=== PATIENT | male | born 1935 | race Caucasian/White ===

== ENCOUNTER 2019-12-08 11:59 | Outpatient (REF) | payer MEDICARE, SELFPAY ==
--- NOTE | 2019-12-08 12:17 | XR_ITS ---
EXAMINATION: CHEST X-RAY CLINICAL INFORMATION: Tobacco use COMPARISON: Previous chest x-rays most recent December [address] scans most recent February 2019 TECHNIQUE: Two-view chest FINDINGS: The cardiac silhouette does not appear enlarged. The thoracic aorta is calcified and tortuous. Hilar and mediastinal contours are otherwise unremarkable. The lungs are well inflated. There is biapical pleural and parenchymal scarring that is stable. The lungs are otherwise clear. There is no pleural effusion or pneumothorax. The bones appear osteopenic. There is a moderate to severe T5 vertebral body compression fracture that is increased from February 2019 exam. There is a mild T10 vertebral body compression fracture that does not appear appreciably changed. There are old right posterior fourth and fifth rib fractures. There are surgical clips in the region of the GE junction. IMPRESSION: No evidence for acute disease in the chest. T5 vertebral body compression fracture increased from previous exam. EXAMINATION: Right clavicle x-ray CLINICAL INFORMATION: Right clavicle fracture COMPARISON: Previous CT of the chest most recent February 2019 TECHNIQUE: 2 views of the right clavicle FINDINGS: The right medial clavicle fracture is difficult to visualize by x-ray. There are old right posterior third fourth and question fifth rib fractures. There is arthritis at the glenohumeral and acromioclavicular joints. There are degenerative changes of the greater tuberosity and adjacent soft tissue calcification suggestive of calcific tendinitis. IMPRESSION: Right medial clavicle fracture not well-visualized by x-ray. Old right posterior rib fractures. Degenerative changes of the right shoulder. EXAMINATION: Left shoulder x-ray CLINICAL INFORMATION: Pain COMPARISON: None. TECHNIQUE: 4 views of the left shoulder FINDINGS: Bone alignment is normal. No fracture or dislocation is seen. The glenohumeral joint is normal. There is mild arthritis at the acromioclavicular joint. There are degenerative changes of the greater tuberosity with increased sclerosis in contour irregularity. There is a soft tissue calcification adjacent to the greater tuberosity. There is left apical pleural and parenchymal scarring. There is a medial soft tissue calcification in the upper arm, question representing vascular calcification. IMPRESSION: Degenerative change at the acromioclavicular joint and greater tuberosity soft tissue calcification adjacent to the greater tuberosity
== END 2019-12-08 12:00 | disposition home or self-care (01) ==
LOC: HO.XRAY 11:59
PROVIDERS: PCP Internal Medicine; Visit Provider Internal Medicine
DX: S43.101A Unspecified dislocation of right acromioclavicular joint, initial encounter (principal); M25.512 Pain in left shoulder; F17.200 Nicotine dependence, unspecified, uncomplicated
CPT/HCPCS: 71046; 73000; 73030

== ENCOUNTER 2020-01-11 10:33 | Outpatient (REF) | payer MEDICARE, SELFPAY ==
[2020-01-11 11:58] LABS: Alanine Aminotransferase 12 U/L (0-40); Albumin Level 4.3 g/dL (3.5-5.0); Alkaline Phosphatase 80 U/L (39-117); Anion Gap 13 (12-20); Aspartate Amino Transferase 18 U/L (5-37); Bilirubin Total 0.6 mg/dL (0.0-1.0); Blood Urea Nitrogen 8 mg/dL (9-16); Carbon Dioxide 29 mmol/L (22-29); Chloride 95 mmol/L (96-108); Cholesterol 124 mg/dL; Estimated Glomerular Filt Rate > 60; Glucose Random 87 mg/dL (60-115); HDL Cholesterol 56 mg/dL; LDL Cholesterol Calculated 53 mg/dl; Sodium 132 mmol/L (135-145); Total Protein 7.2 g/dL (6.5-8.0); Triglycerides 78 mg/dL
== END 2020-01-11 10:34 | disposition home or self-care (01) ==
LOC: HO.LAB 10:33
PROVIDERS: PCP Internal Medicine; Visit Provider Internal Medicine
DX: E78.00 Pure hypercholesterolemia, unspecified (principal); E87.1 Hypo-osmolality and hyponatremia; I73.81 Erythromelalgia; M75.102 Unspecified rotator cuff tear or rupture of left shoulder, not specified as traumatic; S42.021B Displaced fracture of shaft of right clavicle, initial encounter for open fracture
CPT/HCPCS: 80053; 80061

== ENCOUNTER 2020-02-07 10:47 | Outpatient (REF) | payer MEDICARE, SELFPAY ==
[2020-02-07 12:27] LABS: Blood Urea Nitrogen 7 mg/dL (9-16); Estimated Glomerular Filt Rate > 60
== END 2020-02-07 10:48 | disposition home or self-care (01) ==
LOC: HO.LAB 10:47
PROVIDERS: PCP Internal Medicine; Visit Provider Psychiatry & Neurology Neurology
DX: G45.8 Other transient cerebral ischemic attacks and related syndromes (principal); I63.9 Cerebral infarction, unspecified
CPT/HCPCS: 82565; 84520

== ENCOUNTER → 2020-02-22 11:14 | Outpatient (BNVA) | payer MEDICARE, SELFPAY | PROVIDERS: PCP Internal Medicine; Referring Provider Internal Medicine; Visit Provider Surgery Vascular Surgery | DX: M79.602 Pain in left arm (principal); I65.23 Occlusion and stenosis of bilateral carotid arteries; F17.210 Nicotine dependence, cigarettes, uncomplicated | CPT/HCPCS: 99202 ==

== ENCOUNTER 2020-03-07 12:44 | Outpatient (REF) | payer MEDICARE, SELFPAY ==
--- NOTE | 2020-03-07 12:47 | US_ITS ---
EXAMINATION: US DUPLEX UPPER EXTREMITY ARTERY/GRAFT LIMITED, LEFT CLINICAL INFORMATION: Retrograde flow seen in the left vertebral artery on carotid ultrasound. COMPARISON: Carotid ultrasound 03/07/2020, CT chest 03/14/2019 TECHNIQUE: Real-time ultrasound and Doppler techniques (integrating B-mode 2-D vascular images, Doppler spectral analysis and color flow Doppler imaging) were utilized to interrogate the lower extremities. FINDINGS: Right lower extremity: Subclavian artery proximal: 25 cm/sec; monophasic waveform Subclavian artery mid portion: Not well seen. Subclavian artery distal: Not well seen. Axillary artery: 33 cm/sec; monophasic waveform Brachial artery proximal: 26 cm/sec; monophasic waveform Brachial artery mid: 28 cm/sec; monophasic waveform Brachial artery distal: 24 cm/sec; monophasic waveform Radial artery: 18 cm/sec; monophasic waveform Ulnar artery: 12 cm/sec; monophasic waveform ADDITIONAL FINDINGS: None. US/US arterial duplex UE LT IMPRESSION: Dampened waveforms and low velocity seen within the arteries of the left upper extremity. Evaluation of the subclavian artery origin is not possible with ultrasound. Chest CT from 03/14/2019 demonstrates extensive calcification at the origin of the left subclavian artery. The constellation of this evidence is strongly suggestive of left subclavian artery stenosis or occlusion at its origin from the aorta.
--- NOTE | 2020-03-07 12:47 | US_ITS ---
EXAMINATION: US EXTRACRANIAL CAROTID DUPLEX, BILATERAL CLINICAL INFORMATION: This is an 84-year-old male with carotid artery disease. Occlusion and stenosis of bilateral carotid arteries. COMPARISON: None TECHNIQUE: Real-time ultrasound and Doppler techniques (integrating B-mode 2-D vascular images, Doppler spectral analysis and color-flow Doppler imaging) were utilized to interrogate the extracranial carotid arteries, the vertebral arteries and proximal subclavian arteries bilaterally. The degree of stenosis is determined by criteria similar to NASCET. FINDINGS: Right Side: 1. There is minimal atherosclerotic plaque seen in the bifurcation/proximal ICA region. 2. The common carotid artery PSV proximally is 61 cm/s and distally 54 cm/s. 3. The proximal internal carotid artery velocities are 82 cm/s systolic and 26 cm/s diastolic. 4. The proximal external carotid artery PSV is 56 cm/s. 5. The vertebral artery shows antegrade flow. 6. The subclavian artery waveforms are normal. Left Side: 1. There is intimal atherosclerotic plaque seen in the bifurcation/proximal ICA region. 2. The common carotid artery PSV proximally is 76 cm/s and distally 63 cm/s. 3. The proximal internal carotid artery velocities are 73 cm/s systolic and 21 cm/s diastolic. 4. The proximal external carotid artery PSV is 58 cm/s. 5. The vertebral artery shows retrograde flow. 6. The subclavian artery waveforms are normal. US/US carotid duplex BI IMPRESSION: 1. RIGHT: Minimal, non-hemodynamically significant stenosis of the proximal right internal carotid artery corresponding to a 0-49% stenosis by velocity criteria. 2. LEFT: Minimal, non-hemodynamically significant stenosis of the proximal left internal carotid artery corresponding to a 0-49% stenosis by velocity criteria. 3. There is retrograde flow in the left vertebral artery. However, no definite stenosis is seen within the subclavian arteries.
== END 2020-03-07 12:45 | disposition home or self-care (01) ==
LOC: HO.US 12:44
PROVIDERS: Visit Provider Surgery Vascular Surgery
DX: I65.23 Occlusion and stenosis of bilateral carotid arteries (principal); M79.602 Pain in left arm; I73.81 Erythromelalgia
CPT/HCPCS: 93880; 93931

== ENCOUNTER → 2020-03-23 10:15 | Outpatient (BNVA) | payer MEDICARE, SELFPAY | PROVIDERS: PCP Internal Medicine; Visit Provider Surgery Vascular Surgery | DX: I77.1 Stricture of artery (principal) | CPT/HCPCS: 99212 ==

== ENCOUNTER 2020-03-29 06:35 | Day surgery (SDC) | payer MEDICARE, SELFPAY ==
[2020-03-29] VITALS (9 sets, daily range): BP systolic 90–132; BP diastolic 65–89; PULSE 89–99; RESP 16–20; TEMP 36.1; O2SAT 94–95; BMI 24.0
[2020-03-29 08:31] LABS: INTERNATIONAL NORM RATIO 1.1 (0.9-1.1); Prothrombin Time 13.4 SEC (10.8-13.0)
[2020-03-29 08:33] LABS: Hemoglobin 14.6 g/dl (14.0-18.0); MANUAL DIFF FLAG SCAN; Partial Thromboplastin Time 41.5 SEC (24.1-38.0); SCAN SMEAR FLAG 1
[2020-03-29 08:35] LABS: Basophils Absolute Auto 0.1 X10*3/uL (0.0-0.2); Basophils Percent Auto 0.8 % (0-2); Eosinophils Absolute Auto 2.5 X10*3/uL (0.0-0.4); Eosinophils Percent Auto 17.2 % (0-4); Hematocrit 46.5 % (42-52); Imm Gran Abs Auto 0.09 X10*3/uL (0.00-0.03); Imm Gran Pct Auto 0.6 % (0.0-0.4); Lymphocytes Absolute Auto 2.1 X10*3/uL (1.2-4.9); Lymphocytes Percent Auto 14.5 % (20-40); Mean Corpuscular HGB Conc 31.4 g/dl (31.0-36.0); Mean Corpuscular Hemoglobin 19.3 pg (27.0-33.0); Monocytes Absolute Auto 1.6 X10*3/uL (0.1-1.2); Monocytes Percent Auto 11.2 % (2-11); Neutrophils Absolute Auto 8.1 X10*3/uL (2.0-8.3); Neutrophils Percent Auto 55.7 % (45-73); Platelet Count 425 X10*3/uL (160-400); Red Blood Count 7.58 X10*6/uL (4.60-5.80); Red Cell Distribution Width 25.1 % (11.0-16.0); White Blood Count 14.4 X10*3/uL (4.8-10.8)
[2020-03-29 08:38] LABS: Mean Corpuscular Volume 61.3 fL (80-98)
[2020-03-29 08:39] LABS: PLT ABN DIST 1
[2020-03-29 08:56] LABS: Anion Gap 16 (12-20); Blood Urea Nitrogen 6 mg/dL (9-16); Calcium 8.8 mg/dL (8.4-10.2); Carbon Dioxide 26 mmol/L (22-29); Chloride 93 mmol/L (96-108); Creatinine Clr Calc Pharmacy 61.3; Estimated Glomerular Filt Rate > 60; Glucose Random 83 mg/dL (60-115); Potassium 4.5 mmol/L (3.3-5.1); Sodium 130 mmol/L (135-145)
[2020-03-29 09:20] LABS: SLIDE REVIEW VERIFIED
[2020-03-29] MEDS: Lidocaine HCl 1 % MPF 5 ML VIAL 10 ML SUBCUT (11:24)
[2020-03-29] MEDS: iohexoL 300 MG/ML 100 ML INFUS..BTL 200 ML IV (11:24)
--- NOTE | 2020-03-29 11:29 | P.OP_ITS ---
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 Ultrasound-guided right common femoral access 2. Aortogram of arch with selective left subclavian canulation Surgeon:Manav Torres M.D. Tiler'S Assistant:None Anesthesia: Local with moderate conscious sedation for a total of 85 minutes, performed by sc Specimens:none Drains:none Estimated blood loss:minimal Indications:Pt was noted to have significant subclavian steal and arm pain. CTA demonstrates left subclavian origin stenosis. Now for endovascular intervention Procedure in detail: Patient was brought to the angiography suite prior to which a time-out was called for patient identification and site verification. Bilateral groins were prepped and draped in the standard surgical fashion. Under ultrasound guidance common femoral was punctured with micro puncture needle and wire. Subsequently a precision 4 [place] sheath was then placed. [employer] wire was advanced to the level of the aorta. 5 [place] Flush catheter was brought up and parked at the level of the renal arteries. Aortogram was then undertaken. Catheter was brought down to the level of the iliac bifurcation. Iliacs were subsequently imaged. Catheter was then brought in up to the aortic arch. Power injection was performed. Multiple orthogonal views were undertaken. 3000 units of systemic heparin was administered. We then turned our attention to the arch. We brought up a 6 [place] sheath all the way up to the aortic arch. We exchanged for multiple catheters including an angle glide catheter and a KMP catheter. Multiple wires were used to try to attempt to cross the subclavian lesion including and 035 glidewire, 035 glidewire vantage, Amplatzer wire. We were able to engage the origin of the left subclavian but were unable to pass the occlusion. Multiple orthogonal views were once again undertaken. We then withdrew the 6 [place] sheath down to the iliac and placed a flush catheter at the level of the renals and aortogram was then undertaken. We brought the catheter down to the level of the iliacs and iliacs were subsequently imaged. Catheter wire sheath was then removed. 10 minutes of direct pressure was held. Patient tolerated the root procedure well. Interpretation of films: 1. Ultrasound demonstrates appropriate femoral puncture. Image of which was saved. 2. Aortogram demonstrates appropriate caliber aorta. Significant atherosclerotic disease with some evidence of thrombus. 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 Appropriate take-off of the renals. 3. Iliac images demonstrate significant tortuosity of the iliacs. There was high-grade stenosis on the right side common iliac in addition to right side total occlusion of the common femoral. Left side had mild to moderate disease throughout the entire iliac tree. 4. Aortic arch angiogram demonstrated a type 3 arch. Appropriate innominate with normal flow through the carotids. Normal left carotid. Left subclavian had a significant near occlusive lesion at the origin with immediate reconstitution. We were unable to visualize any smaller vessels beyond that point. Including vertebral and thoracic. Conclusion: 1. Successful diagnostic angiogram. We were unable to traverse the subclavian lesion. Patient has significant right-sided common femoral disease which was near occlusive. Minimal flow beyond that. Will need lower extremity workup. As far as the subclavian he may need a brachial approach and if stable may even require a carotid subclavian bypass. 2. Will follow up in my office in approximately 2 weeks time. This note is constructed using voice recognition software. While every effort has been made to ensure accuracy, children's minister errors may have been included. Thank you for allowing me to participate in the care of your patient. Yours sincerely, Manav Torres MD, FACS, R.P.V.I.
[2020-03-29] MEDS: oxyCODONE HCl Immed Release 5 MG TABLET PO (12:15)
[2020-03-29] MEDS: Acetaminophen 325 MG TABLET 650 MG PO (12:20)
== END 2020-03-29 16:20 | disposition home or self-care (01) ==
PROVIDERS: PCP Internal Medicine; Visit Provider Surgery Vascular Surgery
DX: I77.1 Stricture of artery (principal); I70.208 Unspecified atherosclerosis of native arteries of extremities, other extremity; G45.8 Other transient cerebral ischemic attacks and related syndromes; M79.622 Pain in left upper arm; R25.2 Cramp and spasm; I10 Essential (primary) hypertension; D75.1 Secondary polycythemia; E78.00 Pure hypercholesterolemia, unspecified; I25.2 Old myocardial infarction; F17.210 Nicotine dependence, cigarettes, uncomplicated
CPT/HCPCS: 36225; 36245; 36415; 75625; 75630; 75716; 75774; 76937; 76942; 80048; 85025; 85610; 85730; 99152; 99153; C1725; C1769; C1887; C1894; J2250; J3010; Q9967

== ENCOUNTER → 2020-04-13 09:39 | Outpatient (BNVA) | payer MEDICARE, SELFPAY | PROVIDERS: PCP Internal Medicine; Visit Provider Surgery Vascular Surgery | DX: I77.1 Stricture of artery (principal) | CPT/HCPCS: 99212 ==

== ENCOUNTER 2020-06-22 09:27 | Emergency (ER) | payer MEDICARE, SELFPAY ==
--- NOTE | ~2020-06-22 | US_ITS ---
EXAMINATION: RIGHT LOWER EXTREMITY ARTERIAL ULTRASOUND CLINICAL INFORMATION: History of recent vascular procedure. Evaluate for right groin AV fistula or pseudoaneurysm. COMPARISON: None TECHNIQUE: Doppler, color and grayscale evaluation of the arteries and veins in the right groin and right thigh including waveform spectral analysis FINDINGS: There is a large heterogeneous soft tissue mass adjacent to the right common femoral artery. This does not demonstrate vascularity/flow and probably represents a hematoma. The right common femoral artery is enlarged measuring 1.8 cm in diameter. The right common femoral artery is patent however demonstrates markedly abnormal low with a dampened monophasic high resistance waveform and decreased peak systolic velocity of 22 cm/s. The right common femoral vein is patent. Flow in the right common femoral vein is normal. There is hypoechoic soft tissue seen in between the right common femoral artery in the right common femoral vein, again questionable for hematoma. The right proximal superficial femoral artery is patent with normal triphasic waveform and peak systolic velocity of 62 cm/s. US/US arterial duplex LE RT IMPRESSION: No evidence of pseudoaneurysm or AV fistula. Large soft tissue mass adjacent to the right common femoral artery probably representing a hematoma. The right common femoral artery is dilated measuring 1.8 cm in diameter and has abnormal flow with a monophasic high resistance waveform and dampened peak systolic velocity. Further evaluation with CTA may be helpful.
--- NOTE | ~2020-06-22 | XR_ITS ---
EXAMINATION: XR CHEST CLINICAL INFORMATION: Shortness of breath COMPARISON: Previous chest x-ray most recent November [address] February 2019 TECHNIQUE: Frontal view of the chest was obtained. FINDINGS: The cardiac and mediastinal contours are stable. There is biapical pleural parenchymal scarring that is unchanged. There is a small 3 x 6 mm nodule that projects over the right upper lobe and anterior second rib. This is similar to previous chest x-ray May 2017. When compared with previous chest CT scan this likely corresponds to a pleural plaque. The lungs are otherwise clear. There is no pleural effusion or pneumothorax. There are surgical clips in the GE junction region. There are degenerative changes of the spine. XR/XR chest 1V IMPRESSION: No evidence for acute disease in the chest.
[2020-06-22 09:33] VITALS: BP 130/86; PULSE 70; PULSE 95; RESP 16; TEMP 36.7; O2SAT 100; O2SAT 98; BMI 22.6
--- NOTE | 2020-06-22 09:34 | ED.SOB ---
HPI - SOB/Dyspnea General Chief Complaint: Extremity Injury, Lower Stated Complaint: Bleeding/ Hypoxic Time Seen by Provider: 06/22/20 09:31 Source: patient Mode of arrival: EMS Limitations: no limitations History of Present Illness HPI Narrative: Patient with likely arteriovenous fistula from right groin. Family called for leg pain in addition patient has shortness of breath. Patient had surgery on Friday. Patient and family concerned about bleeding from groin. MD elicited complaint: shortness of breath Pertinent past history: congestive heart failure Onset (ago): day(s) Context: other (surgery at [facility] on Friday) Severity: mild Related Data Home Medications Medication Instructions Recorded Confirmed atorvastatin 20 mg tablet 20 mg PO DAILY 02/22/20 06/22/20 cilostazol 50 mg tablet 50 mg PO BID 02/22/20 06/22/20 clopidogrel 75 mg tablet 75 mg PO DAILY 02/22/20 06/22/20 Allergies Allergy/AdvReac Type Severity Reaction Status Date / Time No Known Allergies Allergy Verified 04/13/20 09:56 [No Known Allergies*] Review of Systems Constitutional: Constitutional: Reports no additional constitutional complaints Eyes: Eyes: Reports no additional eye complaints ENT: Denies dizziness Cardiovascular: Cardiovascular: Reports no additional cardiovascular complaints Respiratory: Respiratory: Reports as per HPI Gastrointestinal: Gastrointestinal: Reports no additional gastrointestinal complaints Musculoskeletal: Musculoskeletal: Reports no additional musculoskeletal complaints Integumentary/Breasts: Skin/Breast: Denies rash Neurologic: Reports system reviewed and no additional complaints, except as documented, Denies dizziness and Denies Sensory deficit (Neuro) Psychiatric: Psychiatric: Denies anxiety [facility] Past Medical History Medical History Fracture Heart attack High cholesterol HTN (hypertension) Polycythemia Surgical History H/O arthroscopy of shoulder Hx of rotator cuff surgery S/P angiogram of extremity Family History Family History Daughter Aortic aneurysm Social History Social History Smoking Status: Current every day smoker Tobacco Type: Cigarette Cigarettes Per Day: 10 Use of substances other than those prescribed or required for medical reasons: No Advance Directives: Yes Advance Directives Information Provided: No Advance Directives on File: No Physical Exam Vital Signs: Vital Signs: Last Vital Signs Temp 98.0 F 06/22/20 09:33 Pulse 78 06/22/20 12:52 Resp 18 06/22/20 12:52 BP 122/77 06/22/20 12:52 Pulse Ox 100 06/22/20 12:52 Oxygen Flow Rate 4 06/22/20 09:33 Body Mass Index 22.6 Const: Other: Thin frail chronically ill male Orientation/consciousness: oriented to person and patient oriented x3 Limitations: no limitations HENMT: Head: Yes normal to inspection Ears: external ears normal General nose exam: Normal external nose present Mouth: Normal oral and palatal mucosa present and oropharynx normal Throat: Yes posterior oropharynx normal Eyes: General: appearance normal, both eyes and all related structures Neck: Other: supple Neck: Yes normal visual inspection Chest: Chest palpation & inspection: normal inspection of the chest Resp: Auscultation: clear to auscultation bilaterally Cardio: Jugular venous distension: no JVD Rate: regular rate Rhythm: regular rhythm Heart sounds: S1 normal heart sound present and S2 normal heart sound present GI: Inspection: Yes normal to inspection Palpation (GI): Soft to palpation, nontender and No hepatosplenomegaly present Auscultation: normal bowel sounds : General: Yes no CVA tenderness Back/Spine/Pelvis: Back: no CVA tenderness Skin: Other: right groin hematoma into penis and scrotum. Right groin with large suture. Neuro: General: oriented to person and patient oriented x3 Cranial nerves: Yes CN's II-XII intact bilaterally Motor exam (neuro): 5/5 motor strength present throughout Sensory Exam: No Sensory deficit (Neuro) Extrem: General: Yes normal to inspection Psych: Appearance: grossly normal MDM - SOB/Dyspnea MDM Narrative Medical decision making narrative: Patient with right groin large hematoma that extends into his groin. His leg is warm with good DP pulses. Despite his hematoma on ultrasound and some decrease flow in the femoral artery patient has warm leg with good pulses. Will dc home. Lab Data Result diagrams: 06/22/20 09:43 06/22/20 09:43 Labs: Lab Results 06/22/20 06/22/20 06/22/20 Range/Units 09:43 09:43 09:43 WBC 17.0 H (4.8-10.8) X10*3/uL RBC 6.71 H (4.60-5.80) X10*6/uL Hgb 13.1 L (14.0-18.0) g/dl Hct 42.5 (42-52) % MCV 63.3 L (80-98) fL MCH 19.5 L (27.0-33.0) pg MCHC 30.8 L (31.0-36.0) g/dl RDW 24.0 H (11.0-16.0) % Plt Count 374 (160-400) X10*3/uL MPV Not Reportable Immature Gran % (Auto) 0.8 H (0.0-0.4) % Neut % (Auto) 71.0 (45-73) % Lymph % (Auto) 9.1 L (20-40) % [place] % (Auto) 10.7 (2-11) % Eos % (Auto) 8.0 H (0-4) % Baso % (Auto) 0.4 (0-2) % Lymph # (Auto) 1.5 (1.2-4.9) X10*3/uL [place] # (Auto) 1.8 H (0.1-1.2) X10*3/uL Eos # (Auto) 1.4 H (0.0-0.4) X10*3/uL Baso # (Auto) 0.1 (0.0-0.2) X10*3/uL Abs Immat Gran (auto) 0.14 H (0.00-0.03) X10*3/uL Absolute Neuts (auto) 12.0 H (2.0-8.3) X10*3/uL Absolute Nucleated RBC 0.000 (0.0-0.012) X10*3/uL Nucleated RBC % (auto) 0.0 (0.0-0.2) /100WBC Smear Tech's Comments VERIFIED Sodium 132 L (135-145) mmol/L Potassium 4.4 (3.3-5.1) mmol/L Chloride 96 (96-108) mmol/L Carbon Dioxide 29 (22-29) mmol/L Anion Gap 11 L (12-20) BUN 11 D (9-16) mg/dL Creatinine 0.83 (0.5-1.4) mg/dL Estim Creat Clear Calc 59.5 Estimated GFR > 60 Random Glucose 133 H D (60-115) mg/dL Calcium 9.0 (8.4-10.2) mg/dL Troponin I High Sens 3.5 (<3.5-35.0) ng/L B-Natriuretic Peptide 42 (<100) pg/mL Imaging Data US right groin: Radiologist's impression: [address] [id number] ReportSigned Patient: Adirano Shelton#: [id number]: 1935cct:[id number]/Sex: 84 / MADM Date: 06/22/20Loc: [address] Dr: Ordering Physician: Wiley Cuello MD Date of Service: 06/22/20 Procedure(s): US arterial duplex LE RT Accession Number(s): [id number] cc: Wiley Cuello MD~ EXAMINATION: RIGHT LOWER EXTREMITY ARTERIAL ULTRASOUND CLINICAL INFORMATION: History of recent vascular procedure. Evaluate for right groin AV fistula or pseudoaneurysm. COMPARISON: None TECHNIQUE: Doppler, color and grayscale evaluation of the arteries and veins in the right groin and right thigh including waveform spectral analysis FINDINGS: There is a large heterogeneous soft tissue mass adjacent to the right common femoral artery. This does not demonstrate vascularity/flow and probably represents a hematoma. The right common femoral artery is enlarged measuring 1.8 cm in diameter. The right common femoral artery is patent however demonstrates markedly abnormal low with a dampened monophasic high resistance waveform and decreased peak systolic velocity of 22 cm/s. The right common femoral vein is patent. Flow in the right common femoral vein is normal. There is hypoechoic soft tissue seen in between the right common femoral artery in the right common femoral vein, again questionable for hematoma. The right proximal superficial femoral artery is patent with normal triphasic waveform and peak systolic velocity of 62 cm/s. US/US arterial duplex LE RT IMPRESSION: No evidence of pseudoaneurysm or AV fistula. Large soft tissue mass adjacent to the right common femoral artery probably representing a hematoma. The right common femoral artery is dilated measuring 1.8 cm in diameter and has abnormal flow with a monophasic high resistance waveform and dampened peak systolic velocity. Further evaluation with CTA may be helpful. Discharge Plan Discharge Clinical Impression: Hematoma of right lower leg Patient Disposition: Home, Self-Care Referrals: Physician,Unknown [Primary Care Provider] - 2 days
--- NOTE | 2020-06-22 09:40 | ECG_ITS ---
Test Reason : BLEEDING Blood Pressure : / mmHG Vent. 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
[2020-06-22 09:47] VITALS: BP 91/69
[2020-06-22 09:55] LABS: Hemoglobin 13.1 g/dl (14.0-18.0); MANUAL DIFF FLAG SCAN; SCAN SMEAR FLAG 1
--- NOTE | 2020-06-22 09:56 | PC.NURSE ---
PT RESTING IN THE STRETCHER WORK SLIGHTLY TO BREATH, BREATHING AT ABOUT 26, SATING AT 100% ON 4L, LS DIMINISHED ON BASES, COLOR ASHY, PT HAD A STENT PLACED YESTERDAY AT [facility], RIGHT GROIN INCISION WITH BRUSING ALL OVER THE PERNIEAL AREA AND RIGHT THIGH, HR 88 AT THIS TIME. PT NOT SURE IF HE TAKES BLOOD THINNER.
[2020-06-22 09:57] LABS: Basophils Absolute Auto 0.1 X10*3/uL (0.0-0.2); Basophils Percent Auto 0.4 % (0-2); Eosinophils Absolute Auto 1.4 X10*3/uL (0.0-0.4); Hematocrit 42.5 % (42-52); Imm Gran Abs Auto 0.14 X10*3/uL (0.00-0.03); Imm Gran Pct Auto 0.8 % (0.0-0.4); Lymphocytes Absolute Auto 1.5 X10*3/uL (1.2-4.9); Lymphocytes Percent Auto 9.1 % (20-40); Mean Corpuscular HGB Conc 30.8 g/dl (31.0-36.0); Mean Corpuscular Hemoglobin 19.5 pg (27.0-33.0); Monocytes Absolute Auto 1.8 X10*3/uL (0.1-1.2); Monocytes Percent Auto 10.7 % (2-11); Platelet Count 374 X10*3/uL (160-400); Red Blood Count 6.71 X10*6/uL (4.60-5.80)
[2020-06-22 09:58] LABS: Mean Corpuscular Volume 63.3 fL (80-98); PLT ABN DIST 1
[2020-06-22 10:18] LABS: SLIDE REVIEW VERIFIED
[2020-06-22 10:21] LABS: Anion Gap 11 (12-20); Blood Urea Nitrogen 11 mg/dL (9-16); Carbon Dioxide 29 mmol/L (22-29); Chloride 96 mmol/L (96-108); Creatinine Clr Calc Pharmacy 59.5; Estimated Glomerular Filt Rate > 60; Glucose Random 133 mg/dL (60-115); Potassium 4.4 mmol/L (3.3-5.1); Sodium 132 mmol/L (135-145)
[2020-06-22 10:43] LABS: B Type Natriuretic Peptide 42 pg/mL (<100); Troponin-I High Sensitivity 3.5 ng/L (<3.5-35.0)
[2020-06-22 12:52] VITALS: BP 122/77; PULSE 78; RESP 18; O2SAT 100
--- NOTE | 2020-06-22 12:52 | PC.NURSE ---
ultrasound at bedside, vss, will continue to monitor
--- NOTE | 2020-06-22 14:26 | PC.NURSE ---
charge made aware pt has no way to get home, pt states his does not drive and son does not live in the area.
[2020-06-22 15:17] VITALS: BP 111/75; PULSE 87; RESP 18; TEMP 36.8; O2SAT 97
== END 2020-06-22 15:58 | disposition home or self-care (01) ==
PROVIDERS: Emergency Provider Emergency Medicine
DX: S80.11XA Contusion of right lower leg, initial encounter (principal); M79.604 Pain in right leg; R60.0 Localized edema; R06.02 Shortness of breath; X58.XXXA Exposure to other specified factors, initial encounter; Y93.9 Activity, unspecified; Y92.9 Unspecified place or not applicable; Y99.9 Unspecified external cause status; F17.210 Nicotine dependence, cigarettes, uncomplicated; Z71.6 Tobacco abuse counseling; Z79.899 Other long term (current) drug therapy
CPT/HCPCS: 36415; 71045; 80048; 83880; 84484; 85025; 85060; 93005; 93926; 99284

== ENCOUNTER 2020-07-04 10:49 | Emergency (ER) | payer MEDICARE, SELFPAY ==
--- NOTE | ~2020-07-04 | US_ITS ---
EXAMINATION: US VENOUS ULTRASOUND WITH DOPPLER LOWER EXTREMITY, RIGHT CLINICAL INFORMATION: Pain and swelling COMPARISON: None TECHNIQUE: Ultrasound of the deep veins is performed from the hip to the calf with compression sonography and color and pulse Doppler assessment. Spectral analysis with color-flow imaging is performed. FINDINGS: There is normal venous compression and respiratory variation and augmented flow. The visualized common femoral vein, superficial femoral vein, profunda femoral vein, popliteal vein, and the trifurcation region shows no evidence of deep venous thrombosis. There is no significant popliteal fossa cyst. US/US venous duplex LE RT IMPRESSION: No DVT demonstrated in the right lower extremity.
--- NOTE | ~2020-07-04 | US_ITS ---
EXAMINATION: ULTRASOUND ARTERIAL DUPLEX LOWER EXTREMITY RIGHT CLINICAL INFORMATION: History of previous vascular procedure. Pain and swelling. Evaluate for fistula or pseudoaneurysm. COMPARISON: Previous exam 06/22/2020 TECHNIQUE: Doppler, color and grayscale evaluation of the arteries at the right groin. FINDINGS: The right external iliac artery is patent. This has normal peak systolic velocity measuring 56 cm/s. The right external iliac artery appears slightly dilated measuring 1.4 cm. The right common femoral artery is patent. The right common femoral artery appears slightly dilated measuring 1.7 cm. The right common femoral artery is patent. There is low velocity flow seen in the right common femoral artery measuring 17 cm/s. This is related to previous exam. The previously identified wall thickening of the right common femoral artery is decreased. There is a new hypoechoic area adjacent to the right common femoral artery. This may communicate with the right common femoral artery. This measures 1.6 x 1 x 1.5 cm and is questionable for a thrombosed pseudoaneurysm. No flow is within this lesion. This was not appreciated on the previous exam. The right superficial femoral artery is patent. This has a normal peak systolic velocity measuring 76 cm/s. The right profunda is patent with normal peak systolic velocity measuring 62 cm/s. There is no evidence of pseudoaneurysm. There is a 4.6 x 2.8 x 4.8 cm complex fluid collection in the soft tissues probably representing fibrotic hematoma. There is an enlarged right inguinal lymph node measuring 2.9 x 1.8 x 2.6 cm. 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 The right common femoral artery is patent but still demonstrates decreased peak systolic velocity. Wall thickening of the right common femoral artery appears increased. Adjacent superficial complex fluid collection probably representing a liquefying hematoma measuring 4.6 x 2.8 x 4.8 cm.
--- NOTE | 2020-07-04 11:06 | ED_ITS ---
HPI - Extremity Problem General Chief complaint: Extremity Problem Stated complaint: swollen legs Time Seen by Provider: 07/04/20 11:05 Source: patient and old records reviewed Mode of arrival: ambulatory Limitations: no limitations History of Present Illness HPI Narrative: 84 yo male hx of PAD s/p ?aorto fem bypass has incisions in groin came in on 06/22 for r/o fistula negative at that time comes in from PCP office for RLE swelling which is new, no CP/SOB on aspirin and plavix Complaint: extremity pain and extremity swelling Onset (ago): week(s) (1) Pain Consistency: constant Location: right and lower extremity Quality: aching Radiation: none Relieving factors: nothing Exacerbating factors: weight bearing, walking and exertion Associated symptoms: denies other symptoms Context: history of peripheral vascular disease and other (recent surgery) Related Data Home Medications Medication Instructions Recorded Confirmed atorvastatin 20 mg tablet 20 mg PO DAILY 02/22/20 06/22/20 cilostazol 50 mg tablet 50 mg PO BID 02/22/20 06/22/20 clopidogrel 75 mg tablet 75 mg PO DAILY 02/22/20 06/22/20 Allergies Allergy/AdvReac Type Severity Reaction Status Date / Time No Known Allergies Allergy Verified 04/13/20 09:56 [No Known Allergies*] Review of Systems Review of Systems: Constitutional : No Fever, No Chills ENT/Mouth : No Ear Pain, No Hoarseness, No sore throat Eyes: No Eye Pain, No Swelling, No Redness, No Foreign Body Cardiovascular : No Chest Pain, No SOB, pos edema Respiratory : No Cough, No Dyspnea Gastrointestinal : No Nausea, No Vomiting, No Diarrhea, No abdominal Pain Genitourinary : No Dysuria, No Hematuria Musculoskeletal : positive joint pain, No Myalgias, No Joint Swelling Skin : No Skin lacerations, No rash Neuro : No Weakness, No Numbness, No Loss of Consciousness, No Dizziness, No Headache Psych : No Anxiety/Panic, No Depression Heme/Lymph: no easy bruising, no Lymphadenopathy Endocrine : No Polyuria, No Polydipsia All other systems reviewed and are negative [facility] Past Medical History Attestation statement: The following information was validated with the patient. Medical History Fracture Heart attack High cholesterol HTN (hypertension) Polycythemia Surgical History H/O arthroscopy of shoulder Hx of rotator cuff surgery S/P angiogram of extremity Family History Family History Daughter Aortic aneurysm Social History Social History Smoking Status: Current every day smoker Tobacco Type: Cigarette Cigarettes Per Day: 10 Advance Directives: No Advance Directives Information Provided: No Physical Exam Vital Signs: Vital Signs: Last Vital Signs Temp 97.8 F 07/04/20 11:24 Pulse 92 07/04/20 14:20 Resp 18 07/04/20 14:20 BP 116/89 07/04/20 14:20 Pulse Ox 97 07/04/20 14:20 Body Mass Index 21.7 Appearance: Alert. Oriented X3. No acute distress. Eyes: Pupils equal, round and reactive to light. ENT: Pharynx normal. Neck: Normal inspection. Neck supple. CVS: Normal heart rate and rhythm. Pulses normal. Respiratory: No respiratory distress. Breath sounds normal. Abdomen: Soft and nontender. Skin: Skin warm and dry. Normal skin color. Normal skin turgor. Extremities: RLQ pitting 2+ edema from thigh to foot, distal bounding pulses intact 2+ DP, foot warm to touch, no erythema or signs of ifnection, R groin pos hematoma noted with bruising but no thrill felt. pos calf ttp Neuro: Oriented X 3. No motor deficit. No sensory deficit. Course Course Course Narrative: Dr. Torres transfer back to [facility] for pseudoaneurysm and thrombosis chornically elevated WBC count - no signs of outward infection call to [facility] 230pm call back from Dr. Ricardo at [facility] aware of pseudoanuerysm and thrombosis in [employer] as well as significant swelling of leg and patient having difficulty ambulating at home. no need for emergent transfer can follow up in clinic expected course at this time post operatively. discussed again with Dr. Torres - aware they did not transfer, WBC is chronic, can follow up with [facility] if patient returns with symptoms will help expedite care at [facility] MDM - Extremity (Nontraumatic) MDM Narrative Medical decision making narrative: 84 yo male hx of PAD s/p ?aorto fem bypass has incisions in groin came in on 06/22 for r/o fistula negative at that time comes in from PCP office for RLE swelling which is new, no CP/SOB on aspirin and plavix no CP/SOB will need labs, US to r/o DVT as well as fistula/pseudoaneurysm, dispo per results and findings. Lab Data Result diagrams: 07/04/20 13:48 07/04/20 13:48 Labs: Lab Results 07/04/20 07/04/20 07/04/20 Range/Units 13:48 13:48 13:48 WBC 15.6 H (4.8-10.8) X10*3/uL RBC 6.74 H (4.60-5.80) X10*6/uL Hgb 13.2 L (14.0-18.0) g/dl Hct 43.7 (42-52) % MCV 64.8 L (80-98) fL MCH 19.6 L (27.0-33.0) pg MCHC 30.2 L (31.0-36.0) g/dl RDW 25.7 H (11.0-16.0) % Plt Count 428 H (160-400) X10*3/uL MPV Not Reportable Immature Gran % (Auto) 0.6 H (0.0-0.4) % Neut % (Auto) 55.0 (45-73) % Lymph % (Auto) 17.0 L (20-40) % [place] % (Auto) 7.6 (2-11) % Eos % (Auto) 19.2 H (0-4) % Baso % (Auto) 0.6 (0-2) % Lymph # (Auto) 2.7 (1.2-4.9) X10*3/uL [place] # (Auto) 1.2 (0.1-1.2) X10*3/uL Eos # (Auto) 3.0 H (0.0-0.4) X10*3/uL Baso # (Auto) 0.1 (0.0-0.2) X10*3/uL Abs Immat Gran (auto) 0.10 H (0.00-0.03) X10*3/uL Absolute Neuts (auto) 8.6 H (2.0-8.3) X10*3/uL Absolute Nucleated RBC 0.000 (0.0-0.012) X10*3/uL Nucleated RBC % (auto) 0.0 (0.0-0.2) /100WBC PT 13.3 H (10.8-13.0) SEC INR 1.1 (0.9-1.1) APTT 39.9 H (24.1-38.0) SEC Sodium 132 L (135-145) mmol/L Potassium 4.3 (3.3-5.1) mmol/L Chloride 97 (96-108) mmol/L Carbon Dioxide 27 (22-29) mmol/L Anion Gap 12 (12-20) BUN 8 L (9-16) mg/dL Creatinine 0.71 (0.5-1.4) mg/dL Estim Creat Clear Calc 69.0 Estimated GFR > 60 Random Glucose 81 D (60-115) mg/dL Calcium 8.9 (8.4-10.2) mg/dL COVID-19 ([facility]) (Negative) COVID-19 Clin Com 07/04/20 Range/Units 13:48 WBC (4.8-10.8) X10*3/uL RBC (4.60-5.80) X10*6/uL Hgb (14.0-18.0) g/dl Hct (42-52) % MCV (80-98) fL MCH (27.0-33.0) pg MCHC (31.0-36.0) g/dl RDW (11.0-16.0) % Plt Count (160-400) X10*3/uL MPV Immature Gran % (Auto) (0.0-0.4) % Neut % (Auto) (45-73) % Lymph % (Auto) (20-40) % [place] % (Auto) (2-11) % Eos % (Auto) (0-4) % Baso % (Auto) (0-2) % Lymph # (Auto) (1.2-4.9) X10*3/uL [place] # (Auto) (0.1-1.2) X10*3/uL Eos # (Auto) (0.0-0.4) X10*3/uL Baso # (Auto) (0.0-0.2) X10*3/uL Abs Immat Gran (auto) (0.00-0.03) X10*3/uL Absolute Neuts (auto) (2.0-8.3) X10*3/uL Absolute Nucleated RBC (0.0-0.012) X10*3/uL Nucleated RBC % (auto) (0.0-0.2) /100WBC PT (10.8-13.0) SEC INR (0.9-1.1) APTT (24.1-38.0) SEC Sodium (135-145) mmol/L Potassium (3.3-5.1) mmol/L Chloride (96-108) mmol/L Carbon Dioxide (22-29) mmol/L Anion Gap (12-20) BUN (9-16) mg/dL Creatinine (0.5-1.4) mg/dL Estim Creat Clear Calc Estimated GFR Random Glucose (60-115) mg/dL Calcium (8.4-10.2) mg/dL COVID-19 ([facility]) Negative (Negative) COVID-19 Clin Com See Note Discharge Plan Discharge Clinical Impression: Lower extremity edema, Pseudoaneurysm Patient Disposition: Home, Self-Care Instructions: Pseudoaneurysm (ED) Additional Instructions: return to ED for any worsening symptoms or concerns Dr. Brooks is the surgeon [phone] please call tomorrow for follow up in the clinic this week
[2020-07-04 11:21] VITALS: BP 115/77; PULSE 85; RESP 17; TEMP 36.6; O2SAT 98
[2020-07-04 11:24] VITALS: BP 109/81; PULSE 79; RESP 18; TEMP 36.6; O2SAT 96; BMI 21.7
[2020-07-04 13:54] LABS: MANUAL DIFF FLAG NO
[2020-07-04 14:04] LABS: Basophils Absolute Auto 0.1 X10*3/uL (0.0-0.2); Basophils Percent Auto 0.6 % (0-2); Eosinophils Percent Auto 19.2 % (0-4); Hematocrit 43.7 % (42-52); Hemoglobin 13.2 g/dl (14.0-18.0); Imm Gran Pct Auto 0.6 % (0.0-0.4); Lymphocytes Absolute Auto 2.7 X10*3/uL (1.2-4.9); Mean Corpuscular HGB Conc 30.2 g/dl (31.0-36.0); Mean Corpuscular Hemoglobin 19.6 pg (27.0-33.0); Monocytes Absolute Auto 1.2 X10*3/uL (0.1-1.2); Monocytes Percent Auto 7.6 % (2-11); Neutrophils Absolute Auto 8.6 X10*3/uL (2.0-8.3); Platelet Count 428 X10*3/uL (160-400); Red Blood Count 6.74 X10*6/uL (4.60-5.80); Red Cell Distribution Width 25.7 % (11.0-16.0); White Blood Count 15.6 X10*3/uL (4.8-10.8)
[2020-07-04 14:05] LABS: INTERNATIONAL NORM RATIO 1.1 (0.9-1.1); Prothrombin Time 13.3 SEC (10.8-13.0)
[2020-07-04 14:06] LABS: Mean Corpuscular Volume 64.8 fL (80-98)
[2020-07-04 14:13] LABS: COVID-19 Test Negative (Negative); IDNOW Serial# 9DD0AD1C
[2020-07-04 14:19] LABS: Partial Thromboplastin Time 39.9 SEC (24.1-38.0)
[2020-07-04 14:20] VITALS: BP 116/89; PULSE 92; RESP 18; O2SAT 97
[2020-07-04 14:26] LABS: Anion Gap 12 (12-20); Blood Urea Nitrogen 8 mg/dL (9-16); Calcium 8.9 mg/dL (8.4-10.2); Carbon Dioxide 27 mmol/L (22-29); Chloride 97 mmol/L (96-108); Estimated Glomerular Filt Rate > 60; Glucose Random 81 mg/dL (60-115); Potassium 4.3 mmol/L (3.3-5.1); Sodium 132 mmol/L (135-145)
--- NOTE | 2020-07-04 14:42 | PC.NURSE ---
@1445 DR ARTEAGA REQUESTS CALL OUT TO [facility] TRANSFER LINE SANJU ANSWERS, TAKES PT NAME, CALL BACK NUMBER AND REQUESTS TO SPEAK WITH DR JENNI ARTEAGA TAKES OVER CALL RIGHT AWAY
--- NOTE | 2020-07-04 16:56 | PC.NURSE ---
called and spoke with son about d/c plan. patient going home via ambulance. per md. patient will follow up with surgeon. patient and family state understanding of instructions.
== END 2020-07-04 16:57 | disposition home or self-care (01) ==
PROVIDERS: Emergency Provider Emergency Medicine; PCP Internal Medicine Medical Oncology
DX: R60.0 Localized edema (principal); I72.4 Aneurysm of artery of lower extremity; Z20.822 Contact with and (suspected) exposure to COVID-19; E78.5 Hyperlipidemia, unspecified; I10 Essential (primary) hypertension; F17.210 Nicotine dependence, cigarettes, uncomplicated
CPT/HCPCS: 36415; 80048; 85025; 85610; 85730; 87635; 93926; 93971; 99284

== ENCOUNTER 2020-09-19 09:59 | Outpatient (REF) | payer MEDICARE, SELFPAY ==
[2020-09-19 10:05] LABS: MANUAL DIFF FLAG NO
[2020-09-19 10:19] LABS: Basophils Absolute Auto 0.1 X10*3/uL (0.0-0.2); Basophils Percent Auto 0.5 % (0-2); Eosinophils Absolute Auto 2.6 X10*3/uL (0.0-0.4); Eosinophils Percent Auto 15.7 % (0-4); Hematocrit 48.2 % (42-52); Hemoglobin 14.4 g/dl (14.0-18.0); Imm Gran Abs Auto 0.17 X10*3/uL (0.00-0.03); Lymphocytes Absolute Auto 2.5 X10*3/uL (1.2-4.9); Lymphocytes Percent Auto 15.1 % (20-40); Mean Corpuscular HGB Conc 29.9 g/dl (31.0-36.0); Mean Corpuscular Hemoglobin 18.8 pg (27.0-33.0); Monocytes Absolute Auto 1.4 X10*3/uL (0.1-1.2); Monocytes Percent Auto 8.6 % (2-11); Neutrophils Absolute Auto 9.8 X10*3/uL (2.0-8.3); Neutrophils Percent Auto 59.1 % (45-73); Platelet Count 387 X10*3/uL (160-400); Red Blood Count 7.68 X10*6/uL (4.60-5.80); Red Cell Distribution Width 23.9 % (11.0-16.0); White Blood Count 16.5 X10*3/uL (4.8-10.8)
[2020-09-19 10:21] LABS: Mean Corpuscular Volume 62.8 fL (80-98)
[2020-09-19 11:12] LABS: Alanine Aminotransferase 9 U/L (0-40); Alkaline Phosphatase 78 U/L (39-117); Anion Gap 13 (12-20); Aspartate Amino Transferase 16 U/L (5-37); Bilirubin Total 0.3 mg/dL (0.0-1.0); Blood Urea Nitrogen 8 mg/dL (9-16); Carbon Dioxide 29 mmol/L (22-29); Chloride 98 mmol/L (96-108); Cholesterol 155 mg/dL; Estimated Glomerular Filt Rate > 60; Glucose Random 69 mg/dL (60-115); HDL Cholesterol 55 mg/dL; LDL Cholesterol Calculated 66 mg/dl; Potassium 4.6 mmol/L (3.3-5.1); Sodium 135 mmol/L (135-145); Total Protein 6.7 g/dL (6.5-8.0); Triglycerides 174 mg/dL
[2020-09-19 11:18] LABS: B Type Natriuretic Peptide 67 pg/mL (<100)
[2020-09-19 11:58] LABS: Folate > 20.0 ng/mL (> or = 4.0); Vitamin B12 1824 pg/mL (200-900)
[2020-09-19 12:27] LABS: Prostate Specific Antigen 4.66 ng/mL (<0.05-4.0)
== END 2020-09-19 10:00 | disposition home or self-care (01) ==
LOC: HO.LNP 09:59
PROVIDERS: Visit Provider Internal Medicine Geriatric Medicine
DX: E78.00 Pure hypercholesterolemia, unspecified (principal); R05 Cough; Z12.5 Encounter for screening for malignant neoplasm of prostate
CPT/HCPCS: 80053; 80061; 82607; 82746; 83880; 84153; 85025

== ENCOUNTER 2021-02-12 09:31 | Outpatient (REF) | payer MEDICARE, SELFPAY ==
[2021-02-12 10:07] LABS: SCAN SMEAR FLAG 1
[2021-02-12 10:10] LABS: Basophils Absolute Auto 0.1 X10*3/uL (0.0-0.2); Basophils Percent Auto 0.6 % (0-2); Eosinophils Absolute Auto 3.5 X10*3/uL (0.0-0.4); Eosinophils Percent Auto 18.9 % (0-4); Hematocrit 50.7 % (42.0-52.0); Hemoglobin 15.1 g/dl (14.0-18.0); Imm Gran Abs Auto 0.09 X10*3/uL (0.00-0.03); Imm Gran Pct Auto 0.5 % (0.0-0.4); Lymphocytes Absolute Auto 2.4 X10*3/uL (1.2-4.9); Lymphocytes Percent Auto 12.8 % (20-40); MANUAL DIFF FLAG SCAN; Mean Corpuscular HGB Conc 29.8 g/dl (31.0-36.0); Mean Corpuscular Hemoglobin 18.4 pg (27.0-33.0); Monocytes Absolute Auto 1.7 X10*3/uL (0.1-1.2); Neutrophils Absolute Auto 10.8 x10*3/uL (2.0-8.3); Neutrophils Percent Auto 58.2 % (45-73); Platelet Count 435 X10*3/uL (160-400); Red Cell Distribution Width 24.4 % (11.0-16.0); White Blood Count 18.5 X10*3/uL (4.8-10.8)
[2021-02-12 10:14] LABS: Mean Corpuscular Volume 61.8 fL (80.0-98.0); PLT ABN DIST 1
[2021-02-12 10:39] LABS: Alanine Aminotransferase 15 U/L (0-40); Albumin Level 4.2 g/dL (3.5-5.0); Alkaline Phosphatase 88 U/L (39-117); Anion Gap 11 (12-20); Aspartate Amino Transferase 22 U/L (5-37); Bilirubin Total 0.5 mg/dL (0.0-1.0); Blood Urea Nitrogen 8 mg/dL (9-16); Calcium 9.7 mg/dL (8.4-10.2); Carbon Dioxide 30 mmol/L (22-29); Chloride 96 mmol/L (96-108); Cholesterol 129 mg/dL; Estimated Glomerular Filt Rate > 60; Glucose Random 98 mg/dL (60-115); HDL Cholesterol 51 mg/dL; LDL Cholesterol Calculated 36 mg/dl; Potassium 5.1 mmol/L (3.3-5.1); Sodium 132 mmol/L (135-145); Total Protein 7.4 g/dL (6.5-8.0); Triglycerides 214 mg/dL
[2021-02-12 10:43] LABS: SLIDE REVIEW VERIFIED
== END 2021-02-12 09:32 | disposition home or self-care (01) ==
LOC: HO.LAB 09:31
PROVIDERS: PCP Internal Medicine; Visit Provider Internal Medicine
DX: Z00.00 Encounter for general adult medical examination without abnormal findings (principal); E78.00 Pure hypercholesterolemia, unspecified; I10 Essential (primary) hypertension; Z72.0 Tobacco use
CPT/HCPCS: 36415; 80053; 80061; 85025

== ENCOUNTER 2021-05-14 08:15 | Outpatient (REF) | payer MEDICARE, SELFPAY ==
[2021-05-14 09:01] LABS: Basophils Absolute Auto 0.1 X10*3/uL (0.0-0.2); Basophils Percent Auto 0.6 % (0-2); Eosinophils Absolute Auto 3.6 X10*3/uL (0.0-0.4); Eosinophils Percent Auto 15.9 % (0-4); Hematocrit 50.5 % (42.0-52.0); Imm Gran Abs Auto 0.17 X10*3/uL (0.00-0.03); Imm Gran Pct Auto 0.7 % (0.0-0.4); Lymphocytes Absolute Auto 2.1 X10*3/uL (1.2-4.9); MANUAL DIFF FLAG SCAN; Mean Corpuscular HGB Conc 29.7 g/dl (31.0-36.0); Mean Corpuscular Hemoglobin 18.2 pg (27.0-33.0); Monocytes Absolute Auto 2.2 X10*3/uL (0.1-1.2); Monocytes Percent Auto 9.4 % (2-11); Neutrophils Absolute Auto 14.7 x10*3/uL (2.0-8.3); Neutrophils Percent Auto 64.4 % (45-73); Platelet Count 520 X10*3/uL (160-400); Red Blood Count 8.24 X10*6/uL (4.60-5.80); Red Cell Distribution Width 25.9 % (11.0-16.0); SCAN SMEAR FLAG 1; White Blood Count 22.8 X10*3/uL (4.8-10.8)
[2021-05-14 09:03] LABS: Mean Corpuscular Volume 61.3 fL (80.0-98.0)
[2021-05-14 09:21] LABS: SLIDE REVIEW VERIFIED
[2021-05-14 09:25] LABS: Alanine Aminotransferase 15 U/L (0-40); Albumin Level 4.3 g/dL (3.5-5.0); Alkaline Phosphatase 81 U/L (39-117); Anion Gap 14 (12-20); Aspartate Amino Transferase 22 U/L (5-37); Bilirubin Total 0.8 mg/dL (0.0-1.0); Blood Urea Nitrogen 10 mg/dL (9-16); Calcium 9.9 mg/dL (8.4-10.2); Carbon Dioxide 26 mmol/L (22-29); Chloride 95 mmol/L (96-108); Estimated Glomerular Filt Rate > 60; Glucose Random 97 mg/dL (60-115); Potassium 5.2 mmol/L (3.3-5.1); Sodium 130 mmol/L (135-145); Total Protein 7.3 g/dL (6.5-8.0)
[2021-05-14 09:49] LABS: Prostate Specific Antigen 4.73 ng/mL (<0.05-4.0)
[2021-05-14 10:20] LABS: Folate > 20.0 ng/mL (> or = 4.0); Vitamin B12 1903 pg/mL (200-900)
== END 2021-05-14 08:16 | disposition home or self-care (01) ==
LOC: HO.LAB 08:15
PROVIDERS: PCP Internal Medicine; Visit Provider Internal Medicine Medical Oncology
DX: Z12.5 Encounter for screening for malignant neoplasm of prostate (principal); E53.8 Deficiency of other specified B group vitamins; D75.89 Other specified diseases of blood and blood-forming organs; J44.9 Chronic obstructive pulmonary disease, unspecified; D45 Polycythemia vera
CPT/HCPCS: 36415; 80053; 82607; 82746; 84153; 85025

== ENCOUNTER 2021-10-12 08:15 | Outpatient (REF) | payer MEDICARE, SELFPAY ==
[2021-10-12 09:42] LABS: Eosinophils Absolute Auto 3.7 X10*3/uL (0.0-0.4); Lymphocytes Percent Auto 11.4 % (20-40); Monocytes Percent Auto 8.1 % (2-11); Red Cell Distribution Width 25.9 % (11.0-16.0); SCAN SMEAR FLAG 1
[2021-10-12 09:44] LABS: Basophils Absolute Auto 0.1 X10*3/uL (0.0-0.2); Basophils Percent Auto 0.6 % (0-2); Eosinophils Percent Auto 16.7 % (0-4); Hematocrit 50.4 % (42.0-52.0); Imm Gran Abs Auto 0.19 X10*3/uL (0.00-0.03); Imm Gran Pct Auto 0.9 % (0.0-0.4); Lymphocytes Absolute Auto 2.5 X10*3/uL (1.2-4.9); MANUAL DIFF FLAG SCAN; Mean Corpuscular HGB Conc 29.8 g/dl (31.0-36.0); Monocytes Absolute Auto 1.8 X10*3/uL (0.1-1.2); Neutrophils Absolute Auto 13.7 x10*3/uL (2.0-8.3); Neutrophils Percent Auto 62.3 % (45-73); Red Blood Count 8.32 X10*6/uL (4.60-5.80)
[2021-10-12 09:47] LABS: Mean Corpuscular Volume 60.6 fL (80.0-98.0); PLT ABN DIST 1
[2021-10-12 10:03] LABS: Platelet Count 464 X10*3/uL (160-400)
[2021-10-12 10:04] LABS: SLIDE REVIEW VERIFIED
[2021-10-12 10:26] LABS: Vitamin B12 1825 pg/mL (200-900)
[2021-10-12 11:48] LABS: Alanine Aminotransferase 12 U/L (0-40); Albumin Level 4.5 g/dL (3.5-5.0); Alkaline Phosphatase 83 U/L (39-117); Anion Gap 19 (12-20); Aspartate Amino Transferase 22 U/L (5-37); Bilirubin Total 0.8 mg/dL (0.0-1.0); Blood Urea Nitrogen 8 mg/dL (9-16); Calcium 9.9 mg/dL (8.4-10.2); Carbon Dioxide 25 mmol/L (22-29); Chloride 95 mmol/L (96-108); Estimated Glomerular Filt Rate > 60; Glucose Random 86 mg/dL (60-115); Potassium 5.2 mmol/L (3.3-5.1); Sodium 134 mmol/L (135-145); Total Protein 7.6 g/dL (6.5-8.0)
[2021-10-12 12:09] LABS: Ferritin 16 ng/mL (20-250)
== END 2021-10-12 08:16 | disposition home or self-care (01) ==
LOC: HO.LAB 08:15
PROVIDERS: PCP Internal Medicine; Visit Provider Internal Medicine Medical Oncology
DX: E53.8 Deficiency of other specified B group vitamins (principal); N40.0 Benign prostatic hyperplasia without lower urinary tract symptoms; D45 Polycythemia vera
CPT/HCPCS: 36415; 80053; 82607; 82728; 85025

== ENCOUNTER 2023-04-03 08:43 | Outpatient (REF) | payer MEDICARE, SELFPAY ==
[2023-04-03 10:24] LABS: Basophils Absolute Auto 0.2 X10*3/uL (0.0-0.2); Basophils Percent Auto 0.5 % (0-2); Eosinophils Absolute Auto 3.8 X10*3/uL (0.0-0.4); Eosinophils Percent Auto 13.7 % (0-4); Hematocrit 36.9 % (42.0-52.0); Imm Gran Abs Auto 0.34 X10*3/uL (0.00-0.03); Imm Gran Pct Auto 1.2 % (0.0-0.4); Lymphocytes Absolute Auto 2.8 X10*3/uL (1.2-4.9); MANUAL DIFF FLAG SCAN; Mean Corpuscular HGB Conc 27.1 g/dl (31.0-36.0); Mean Corpuscular Hemoglobin 15.2 pg (27.0-33.0); Monocytes Percent Auto 7.1 % (2-11); NRBC Pct Auto 0.1 /100WBC (0.0-0.2); Neutrophils Absolute Auto 18.7 x10*3/uL (2.0-8.3); Neutrophils Percent Auto 67.5 % (45-73); Platelet Count 640 X10*3/uL (160-400); Red Cell Distribution Width 25.9 % (11.0-16.0); SCAN SMEAR FLAG 1; White Blood Count 27.7 X10*3/uL (4.8-10.8)
[2023-04-03 10:34] LABS: Mean Corpuscular Volume 55.9 fL (80.0-98.0)
[2023-04-03 10:50] LABS: Alanine Aminotransferase 14 U/L (0-40); Alkaline Phosphatase 99 U/L (39-117); Anion Gap 13 (12-20); Aspartate Amino Transferase 22 U/L (5-37); Bilirubin Total 0.6 mg/dL (0.0-1.0); Blood Urea Nitrogen 14 mg/dL (9-16); Calcium 9.3 mg/dL (8.4-10.2); Carbon Dioxide 28 mmol/L (22-29); Chloride 101 mmol/L (96-108); Cholesterol 119 mg/dL (<200); Estimated Glomerular Filt Rate > 60; Glucose Fasting 77 mg/dL (60-99); HDL Cholesterol 41 mg/dL (>40); LDL Cholesterol Calculated 53 mg/dL (<100); Potassium 4.3 mmol/L (3.3-5.1); Sodium 138 mmol/L (135-145); Total Protein 7.1 g/dL (6.5-8.0); Triglycerides 127 mg/dL (<150)
[2023-04-03 11:05] LABS: SLIDE REVIEW VERIFIED
[2023-04-03 11:07] LABS: Ferritin 8 ng/mL (20-250)
[2023-04-03 11:13] LABS: Prostate Specific Antigen 3.16 ng/mL (<0.05-4.0); Vitamin B12 1673 pg/mL (200-900)
[2023-04-04 13:44] LABS: Alpha Fetoprotein 9.3 ng/mL (<6.1)
== END 2023-04-03 08:44 | disposition home or self-care (01) ==
LOC: HO.LAB 08:43
PROVIDERS: PCP Internal Medicine Medical Oncology; Visit Provider Internal Medicine Medical Oncology
DX: E53.8 Deficiency of other specified B group vitamins (principal); E66.3 Overweight; I25.10 Atherosclerotic heart disease of native coronary artery without angina pectoris; I10 Essential (primary) hypertension; D75.89 Other specified diseases of blood and blood-forming organs; E78.5 Hyperlipidemia, unspecified; N40.0 Benign prostatic hyperplasia without lower urinary tract symptoms; Z12.5 Encounter for screening for malignant neoplasm of prostate
CPT/HCPCS: 36415; 80053; 80061; 82105; 82607; 82728; 84153; 85025

== ENCOUNTER 2024-02-13 07:15 | Inpatient (IN) | payer MEDICARE, OTHER, SELFPAY ==
[2024-02-13] VITALS (25 sets, daily range): BP systolic 68–137; BP diastolic 50–86; PULSE 94–178; RESP 14–30; TEMP 36.1–37.2; O2SAT 80–100; BMI 24.8; BMI 23.9
--- NOTE | ~2024-02-13 | XR_ITS ---
EXAMINATION: XR CHEST CLINICAL INFORMATION: Chest pain, SOB, hypoxia R/O CHF, pneumonia COMPARISON: X-ray 06/22/2020 TECHNIQUE: Frontal view of the chest was obtained. FINDINGS: Lordotic view, rotated positioning. Overlying parenchyma monitoring leads. Cardiomediastinal silhouette is within normal limits, allowing for positioning/technique. Aortic arch calcification. Lungs are symmetrically expanded. Biapical pleural parenchymal scarring, partially obscured by the overlying pad, overall stable from previous. 6 mm nodule in the right upper lung, stable from previous. Mild peribronchial thickening in the right lower lung, similar to previous. No new focal consolidation. No effusion, pulmonary edema. No pneumothorax is seen. No acute fracture seen. Limited evaluation of the thoracic spine. Surgical clips in the GE junction. XR/XR chest 1V IMPRESSION: No radiographic evidence of acute cardiopulmonary findings.. Electronically signed by: Cristiano Givens MD 02/13/2024 08:59 AM [facility]
--- NOTE | 2024-02-13 07:19 | ECG_ITS ---
Test Reason : hypoxia Blood Pressure : / mmHG Vent. 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
[2024-02-13] MEDS: Adenosine 6 MG/2 ML VIAL 12 MG IVPUSH (07:21)
[2024-02-13] MEDS: fentaNYL citrate/PF 100 MCG/2 ML VIAL 50 MCG IVPUSH (07:24)
[2024-02-13] MEDS: Ketamine HCl/NS 100 MG/10 ML SYRINGE 70 MG IVPUSH (07:26)
[2024-02-13] MEDS: Ketamine HCl/NS 100 MG/10 ML SYRINGE 30 MG IVPUSH (07:27)
--- NOTE | 2024-02-13 07:33 | ED_ITS ---
HPI - SOB/Dyspnea General Chief Complaint: Chest Pain Stated Complaint: CP/SOB,170 HR,80% RA, ADENOSINE GIVEN PER EMS Time Seen by Provider: 02/13/24 07:30 Source: EMS Mode of arrival: EMS Limitations: other (Patient's speaks [place] only, he was in respiratory distress and not able to answer questions) History of Present Illness ED Provider: Dr. Percy Jackson HPI Narrative: 88-year-old male with a history of polycythemia, hyperlipidemia, COPD, congestive heart failure, hypertension, myocardial infarction, who presents emergency department for evaluation of chest pain, hypotension, hypoxia and SVT. Information came from the paramedics. The patient woke up at 0530 hours with chest pain and shortness of breath. When the paramedics arrived on the scene the patient had already taken an aspirin. His systolic blood pressure was 80. His heart rate was 170. His O2 saturation was 80% on room air. He was placed on non-rebreather mask. He was given adenosine 6 mg and 12 mg IV push with no effect on his SVT. On arrival to the emergency department the patient's O2 saturation on a 100% non-rebreather was 100%. Patient's systolic blood pressure was 85. He was given adenosine 12 mg IV push with no effect. Given his shortness of breath, chest pain, hypotension patient needed emergent cardioversion. He was given ketamine 100 mg IV and fentanyl 25 mg IV. He was successfully cardioverted 200 joules. Patient was now in a sinus tachycardia with a systolic blood pressure of 95 When the patient improve he was able to give me a history. He states that he woke up at 04:00 hours with his heart racing, left arm pain and chest pain. Drank a cup of coffee and went on his front porch and smoked a cigarette. He states that he then went outside to smoke a 2nd cigarette and his symptoms got worse. He states that his chest pain and shortness of breath got worse, he did not have any lightheaded or dizziness. He then asked his to call an ambulance. Related Data Home Medications ?Medication ?Instructions ?Recorded ?Confirmed atorvastatin 20 mg tablet 20 mg PO DAILY 02/22/20 02/13/24 cilostazol 50 mg tablet 50 mg PO BID 02/22/20 02/13/24 clopidogrel 75 mg tablet 75 mg PO DAILY 02/22/20 02/13/24 albuterol sulfate 2.5 mg/3 mL 2.5 mg inhalation TID 02/13/24 02/13/24 (0.083 %) solution for nebulization aspirin 81 mg chewable tablet 81 mg PO DAILY 02/13/24 02/13/24 cyanocobalamin (vitamin B-12) 50 50 mcg PO DAILY 02/13/24 02/13/24 mcg tablet (Vitamin B-12) fluticasone fur. 200 mcg-umeclid 1 ea inhalation DAILY 02/13/24 02/13/24 62.5 mcg-vilant 25 mcg inhalat.powder (Trelegy Ellipta) furosemide 40 mg tablet 40 mg PO DAILY 02/13/24 02/13/24 metoprolol succinate 50 mg 50 mg PO DAILY 02/13/24 02/13/24 tablet,extended release 24 hr whlyrefpbqnm-aeudbgpl-[id number] tablet 1 tab PO DAILY 02/13/24 02/13/24 Allergies Allergy/AdvReac Type Severity Reaction Status Date / Time No Known Allergies Allergy Verified 02/13/24 07:36 [No Known Allergies*] Review of Systems 2 Review of Systems: Yes all other systems are reviewed and are negative [facility] Past Medical History Medical History Fracture Heart attack High cholesterol HTN (hypertension) Polycythemia Surgical History H/O arthroscopy of shoulder Hx of rotator cuff surgery S/P angiogram of extremity Family History Family History Daughter Aortic aneurysm Social History Social History Cigarettes Per Day: 10 Advance Directives: No Advance Directives Information Provided: No Physical Exam 2 Vital Signs: Vital Signs: Last Vital Signs Temp 98.3 F 02/13/24 12:09 Pulse 94 02/13/24 13:22 Resp 14 02/13/24 13:22 BP 101/63 02/13/24 13:22 Pulse Ox 98 02/13/24 13:22 O2 Del Method Nasal Cannula 02/13/24 13:22 O2 Flow Rate 3 02/13/24 13:22 BMI result Body Mass Index 24.8 Exam: General: Awake, alert , in respiratory distress, was able to tell me his name but it was not answering questions-patient was speaks [place] only according to EMS Head: Normocephalic, atraumatic EENT: PERRL, Lids normal, sclera normal, conjunctiva normal, nose normal , ears normal, throat without erythema or exudates Neck: Supple, no adenopathy Lung: b breath sounds were symmetric bilaterally, diffuse rales and rhonchi with no wheezing Chest: symmetric movement, nontender Heart: Tachycardia with a regular rhythm, normal S1, S2 no murmurs or rubs Abdomen: soft, non-tender, nondistended, normal bowel sounds Back: no vertebral tenderness, no CVAT Extremities: no deformities, moves all extremities symmetrically Neuro: Awake, alert, oriented to person, cranial nerves intact, moves all extremities symmetrically Psych: Pleasant, cooperative Medications Administered Discontinued Medications Generic Name Dose Route Start Last Admin Trade Name Freq PRN Reason Stop Dose Admin Adenosine 12 mg 02/13/24 07:22 02/13/24 07:21 Adenosine 6 Mg/2 Ml Vial IVPUSH 02/13/24 07:23 12 mg STAT STA Administration Levalbuterol HCl 2.5 mg/ 0 mg 02/13/24 08:00 02/13/24 08:25 Ipratropium [place] 0.5 mg INHALE 02/13/24 08:01 5 dose ONCE ONE Administration Fentanyl 50 mcg 02/13/24 07:22 02/13/24 07:24 Fentanyl Citrate/Pf 100 Mcg/2 Ml Vial IVPUSH 02/13/24 07:23 25 mcg ONCE ONE Administration Protocol Sodium Chloride 1,000 mls @ 999 mls/hr 02/13/24 07:33 02/13/24 09:00 Ns IV 02/13/24 08:33 Infused .Q1H1M STA Infusion Ketamine HCl 70 mg 02/13/24 07:22 02/13/24 07:26 Ketamine Hcl/Ns 100 Mg/10 Ml Syringe IVPUSH 02/13/24 07:23 70 mg STAT STA Administration Ketamine HCl 30 mg 02/13/24 07:31 02/13/24 07:27 Ketamine Hcl/Ns 100 Mg/10 Ml Syringe IVPUSH 02/13/24 07:32 30 mg STAT STA Administration Medical Decision Making Medical Decision Making MDM Narrative: 88-year-old male with a history of polycythemia hyperlipidemia, COPD, congestive heart failure, hypertension, myocardial infarction, who presents emergency department for evaluation of chest pain,, left arm pain, palpitations with symptoms starting at 04:00 hours. EMS reported that the patient was hypotension, hypoxia and SVT with a heart rate of 170. Patient was found to be in an SVT which did not respond to adenosine 6 mg and 12 mg IV push by classroom monitor. Patient was hypotensive with systolic blood pressure of 80 and hypoxic with O2 saturation of 80% on room air which improved to 100% on 100% non-rebreather mask. Patient was given adenosine 12 mg IV push in the emergency department with no response and was then sedated with ketamine 100 mg IV and fentanyl 25 mg IV. He was cardioverted with biphasic defibrillator which 200 joules and his blood pressure improved. Lung exam did reveal rales and rhonchi and I suspect that he is in CHF therefore I ordered CPAP. Differential diagnosis: ?Includes but is not limited to myocardial infarction, myocardial ischemia, myocardial injury, pulmonary edema, SVT, electrolyte abnormalities, anemia Course: 09:03 Please note that the patient's initial laboratory values were abnormal secondary to the specimen being drawn above the IV line causing dilution errors. Therefore, CBC , CMP and magnesium were repeated. My interpretation of the repeat laboratory evaluation is as follows: WBC was elevated at 34,500, differential is pending. Patient was had elevated WBCs in the past but this is significantly higher. 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 He has had similar microcytic anemia in the past. PT INR elevated 14.8 and 1.3. Urinalysis was negative. COVID-19, influenza and RSV were negative. VBG revealed a pH of 7.24, pCO2 was elevated at 65, bicarb was elevated 29- consistent with respiratory alkalosis. Lactic acid was elevated at 3.2-this is secondary to his respiratory alkalosis and not related to sepsis. COVID-19, influenza and RSV were negative. BNP was elevated at 160. Troponin was detectable but not elevated 8.4. Repeat troponin is pending On my interpretation of the patient's chest x-ray felt that the patient did have increased interstitial markings bilaterally compared to the previous 1, radiologist read the x-ray is negative. At this time, I do not think that the patient has an infectious process as the cause of his elevated WBC and I suspect that he may have a bone marrow dyscrasia. Patient was initially placed on CPAP. Patient was also treated with Xopenex 5 mg and ipratropium 0.5 mg nebulizer. 11:47 The patient is off BiPAP in his on currently on 3 L via nasal cannula. Patient denies chest pain. This time I believe that the patient had chest pain and left arm pain is consistent with angina triggered by his SVT. Patient's leukocytosis is also concerning for leukemia/blood dyscrasias and will need further workup. I did discuss admission over tiger text with the covering hospitalist, Dr. Gracia and the patient will be admitted to the telemetry unit for further evaluation. 14:08 Patient's repeat troponin was elevated 149.6. Patient did get cardioverted . Therefore this elevation could be secondary to cardioversion or may represent an NSTEMI. I did this discuss this over tiger text with the physician assistant customer service manager, [place] Villa Admission/Observation Consideration of admission/observation: Escalation of care including admission/observation considered (yes) Consult Healthcare Provider Management of the patient was discussed with: Hospitalist Lab Data MDM Lab Attestation statement: I reviewed the patient's lab results. 02/13/24 08:26 02/13/24 08:40 Labs: Lab Results 02/13/24 02/13/24 02/13/24 Range/Units 07:34 07:40 07:47 WBC TNP RBC TNP Hgb TNP Hct TNP MCV TNP MCH TNP MCHC TNP RDW TNP Plt Count TNP MPV TNP Immature Gran % (Auto) TNP Neut % (Auto) TNP Lymph % (Auto) TNP [place] % (Auto) TNP Eos % (Auto) TNP Baso % (Auto) TNP Lymph # (Auto) TNP [place] # (Auto) TNP Eos # (Auto) TNP Baso # (Auto) TNP Abs Immat Gran (auto) TNP Absolute Neuts (auto) TNP Absolute Nucleated RBC TNP Nucleated RBC % (auto) TNP Neutrophils % (Manual) (45-73) % Band Neutrophils % (3-5) % Lymphocytes % (Manual) (20-40) % Atypical Lymphs % (Man) (0-6) % Monocytes % (Manual) (2-11) % Eosinophils % (Manual) (0-4) % Basophils % (Manual) (0-2) % Abs Neuts (Manual) (2.0-8.3) X10*3/uL Lymphocytes # (Manual) (1.2-4.9) X10*3/uL Atyp Lymphs # (Manual) x10*3/uL Monocytes # (Manual) (0.1-1.2) X10*3/uL Eosinophils # (Manual) (0.0-0.4) X10*3/uL Basophils # (Manual) (0.0-0.2) X10*3/uL Platelet Estimate (NORMAL) Large Platelets Giant Platelets Plt Morphology Comment RBC Morphology Polychromasia /OIF Hypochromasia /OIF Microcytosis /OIF Target Cells /OIF Tear Drop Cells /OIF Ovalocytes /OIF [place] Cells /OIF Acanthocytes (Spur) /OIF Schistocytes /OIF Smear Tech's Comments TNP PT 14.8 H (10.9-12.4) SEC INR 1.3 H (0.9-1.1) APTT 32.5 (26.0-36.8) SEC VBG pH VBG pCO2 VBG pO2 VBG HCO3 VBG O2 Saturation VBG Base Excess Sodium TNP Potassium TNP Chloride TNP Carbon Dioxide TNP Anion Gap TNP BUN TNP Creatinine TNP Estim Creat Clear Calc TNP Estimated GFR TNP POC Glucose 176 H (60-115) mg/dL Random Glucose TNP Lactic Acid TNP Lactic Acid F/U @ 2Hr Calcium TNP Magnesium TNP Total Bilirubin TNP AST TNP ALT TNP Alkaline Phosphatase TNP Troponin I High Sens TNP B-Natriuretic Peptide TNP Total Protein TNP Albumin TNP Lipase TNP Urine Color Urine Appearance Urine pH (5.0-9.0) Ur Specific [place] (1.005-1.025) Urine Protein (Neg-Trace) mg/dL Urine Glucose (UA) (Negative) mg/dL Urine Ketones (Negative) mg/dL Urine Blood (Negative) Urine Nitrite (Negative) Ur Leukocyte Esterase (Negative) Influenza Type A (PCR) NEGATIVE (Negative) Influenza Type B (PCR) NEGATIVE (Negative) RSV RNA Qual (PCR) NEGATIVE (Negative) SARS-CoV-2 RNA (RT-PCR) NEGATIVE (Negative) Blood Type Antibody Screen 02/13/24 02/13/24 02/13/24 Range/Units 07:52 08:26 08:40 WBC 34.5 H* RBC 7.02 H Hgb 10.6 L Hct 39.8 L MCV 56.7 L MCH 15.1 L MCHC 26.6 L RDW 26.2 H Plt Count 682 H MPV Not Reportable Immature Gran % (Auto) Cancelled Neut % (Auto) Cancelled Lymph % (Auto) Cancelled [place] % (Auto) Cancelled Eos % (Auto) Cancelled Baso % (Auto) Cancelled Lymph # (Auto) Cancelled [place] # (Auto) Cancelled Eos # (Auto) Cancelled Baso # (Auto) Cancelled Abs Immat Gran (auto) Cancelled Absolute Neuts (auto) Cancelled Absolute Nucleated RBC 0.000 Nucleated RBC % (auto) 0.0 Neutrophils % (Manual) 73 (45-73) % Band Neutrophils % 9 H (3-5) % Lymphocytes % (Manual) 1 L (20-40) % Atypical Lymphs % (Man) 2 (0-6) % Monocytes % (Manual) 1 L (2-11) % Eosinophils % (Manual) 12 H (0-4) % Basophils % (Manual) 2 (0-2) % Abs Neuts (Manual) 28.3 H (2.0-8.3) X10*3/uL Lymphocytes # (Manual) 0.3 L (1.2-4.9) X10*3/uL Atyp Lymphs # (Manual) 0.7 x10*3/uL Monocytes # (Manual) 0.3 (0.1-1.2) X10*3/uL Eosinophils # (Manual) 4.1 H (0.0-0.4) X10*3/uL Basophils # (Manual) 0.7 H (0.0-0.2) X10*3/uL Platelet Estimate INCREASED (NORMAL) Large Platelets PRESENT Giant Platelets PRESENT Plt Morphology Comment NOTED RBC Morphology NOTED Polychromasia 2+ (3-5) /OIF Hypochromasia 1+ (5-14) /OIF Microcytosis 3+ (>30) /OIF Target Cells 1+ (5-14) /OIF Tear Drop Cells 2+ (3-5) /OIF Ovalocytes 2+ (15-30) /OIF [place] Cells 1+ (0-2) /OIF Acanthocytes (Spur) 2+ (3-5) /OIF Schistocytes 2+ (3-5) /OIF Smear Tech's Comments PT (10.9-12.4) SEC INR (0.9-1.1) APTT (26.0-36.8) SEC VBG pH TNP VBG pCO2 TNP VBG pO2 TNP VBG HCO3 TNP VBG O2 Saturation TNP VBG Base Excess TNP Sodium 142 Potassium 3.6 Chloride 105 Carbon Dioxide 19 L Anion Gap 22 H BUN 12 Creatinine 1.19 Estim Creat Clear Calc 40.1 Estimated GFR 58 POC Glucose (60-115) mg/dL Random Glucose 165 H Lactic Acid Lactic Acid F/U @ 2Hr Calcium 9.4 Magnesium 2.2 Total Bilirubin 0.9 AST 32 ALT 11 Alkaline Phosphatase 110 Troponin I High Sens 8.4 B-Natriuretic Peptide 160 H Total Protein 7.3 Albumin 4.2 Lipase Urine Color Yellow Urine Appearance Clear Urine pH 6.5 (5.0-9.0) Ur Specific [place] 1.010 (1.005-1.025) Urine Protein Negative (Neg-Trace) mg/dL Urine Glucose (UA) Negative (Negative) mg/dL Urine Ketones Negative (Negative) mg/dL Urine Blood Negative (Negative) Urine Nitrite Negative (Negative) Ur Leukocyte Esterase Negative (Negative) Influenza Type A (PCR) (Negative) Influenza Type B (PCR) (Negative) RSV RNA Qual (PCR) (Negative) SARS-CoV-2 RNA (RT-PCR) (Negative) Blood Type A Positive Antibody Screen NEGATIVE 02/13/24 02/13/24 02/13/24 Range/Units 10:13 10:19 12:12 WBC RBC Hgb Hct MCV MCH MCHC RDW Plt Count MPV Immature Gran % (Auto) Neut % (Auto) Lymph % (Auto) [place] % (Auto) Eos % (Auto) Baso % (Auto) Lymph # (Auto) [place] # (Auto) Eos # (Auto) Baso # (Auto) Abs Immat Gran (auto) Absolute Neuts (auto) Absolute Nucleated RBC Nucleated RBC % (auto) Neutrophils % (Manual) (45-73) % Band Neutrophils % (3-5) % Lymphocytes % (Manual) (20-40) % Atypical Lymphs % (Man) (0-6) % Monocytes % (Manual) (2-11) % Eosinophils % (Manual) (0-4) % Basophils % (Manual) (0-2) % Abs Neuts (Manual) (2.0-8.3) X10*3/uL Lymphocytes # (Manual) (1.2-4.9) X10*3/uL Atyp Lymphs # (Manual) x10*3/uL Monocytes # (Manual) (0.1-1.2) X10*3/uL Eosinophils # (Manual) (0.0-0.4) X10*3/uL Basophils # (Manual) (0.0-0.2) X10*3/uL Platelet Estimate (NORMAL) Large Platelets Giant Platelets Plt Morphology Comment RBC Morphology Polychromasia /OIF Hypochromasia /OIF Microcytosis /OIF Target Cells /OIF Tear Drop Cells /OIF Ovalocytes /OIF [place] Cells /OIF Acanthocytes (Spur) /OIF Schistocytes /OIF Smear Tech's Comments PT (10.9-12.4) SEC INR (0.9-1.1) APTT (26.0-36.8) SEC VBG pH 7.26 L VBG pCO2 65 VBG pO2 52 VBG HCO3 29 H VBG O2 Saturation 75.0 VBG Base Excess 1.2 Sodium Potassium Chloride Carbon Dioxide Anion Gap BUN Creatinine Estim Creat Clear Calc Estimated GFR POC Glucose (60-115) mg/dL Random Glucose Lactic Acid 3.2 H* Lactic Acid F/U @ 2Hr Cancelled Calcium Magnesium Total Bilirubin AST ALT Alkaline Phosphatase Troponin I High Sens 149.6 H* D B-Natriuretic Peptide Total Protein Albumin Lipase Urine Color Urine Appearance Urine pH (5.0-9.0) Ur Specific [place] (1.005-1.025) Urine Protein (Neg-Trace) mg/dL Urine Glucose (UA) (Negative) mg/dL Urine Ketones (Negative) mg/dL Urine Blood (Negative) Urine Nitrite (Negative) Ur Leukocyte Esterase (Negative) Influenza Type A (PCR) (Negative) Influenza Type B (PCR) (Negative) RSV RNA Qual (PCR) (Negative) SARS-CoV-2 RNA (RT-PCR) (Negative) Blood Type Antibody Screen Independent Interpretation I performed an independent interpretation of an: EKG Interpretation: My interpretation patient's rhythm strip done at 07:22 hours is as follows: SVT with a rate of 170 My interpretation of the patient's 12 lead EKG done at 07:31 hours after he was cardioverted: Sinus tachycardia with a rate of 125, normal IN interval, prolonged QRS duration of 108 milliseconds, prolonged QTC of 491 milliseconds, no ST segment elevation, no ST segment depression, Q-waves V1 through V4, occasional PVC. Compared to EKG dated 06/22/2020, the Q-waves in V1 through V4 are new. My interpretation patient's one-view chest x-ray is as follows: Increased interstitial markings consistent with mild pulmonary edema which is new compared to chest x-ray from 06/22/2020. Radiology Impression Discussion of test interpretation with radiology: I have reviewed the radiologist's reading. Radiologist Impression: XR chest 1V IMPRESSION: No radiographic evidence of acute cardiopulmonary findings.. Electronically signed by: Cristiano Givens MD 02/13/2024 08:59 AM EST Independent Historian Clinical information obtained from an independent historian. History obtained from or confirmed by: EMS External Record Review External record reviewed: Office record Chronic Conditions Patient?s care impacted by: Other (COPD) Procedures Procedure Narrative Procedure Narrative: Electrical cardioversion The patient was unstable and was unable to give consent. Patient was premedicated with fentanyl 25 mg IV and ketamine 100 mg IV. Patient was cardioverted with biphasic defibrillator at 200 joules. The patient SVT converted to a sinus tachycardia. Patient had no recall of the cardioversion and no complications from the cardioversion. Critical Care Time Critical Care Time Critical Care Time: Yes Total Critical Care Time: 45 Attestation: Critical Care: The patient was critically ill with a high probability of imminent or life threatening deterioration. I spent greater than 30 minutes of discontinuous time evaluating the patient,delivering critical care at the bedside, discussing and evaluating pertinent data with consultants. Critical care time does not include time spent performing separately billable procedures or teaching. Total time spent performing critical care was 45 minutes. Discharge Plan Discharge Clinical Impression: Angina pectoris, Supraventricular tachycardia, Acute hypotension, Hypoxia, Leukocytosis Patient Disposition: Admitted As Inpatient Interventions: Admission Worksheet (ED) Last Done: 02/13/24 12:46
[2024-02-13] MEDS: 0.9 % Sodium Chloride 1,000 ML 999 ML IV (07:46)
--- NOTE | 2024-02-13 07:47 | PC.NURSE ---
Pt woke up this am at 530 with c/o CP and SOB. Upon EMS arrival pt hypoxic, hypotensive and in an SVT in the 180's. Pt arrives on a NRB, BP in the 60's. Pt given 6mg then 12mg of adenosine with no conversation of rhythm. Pt given another 12mg of Adenosine with no effect. Pt medicated with 25mcg fenanyl and 100mg ketamine, synchronized cardioversion preformed at 200J at 07:27am with conversion of rhythm to sinus tach. BP 107/82, pt being transitioned to CPAP by respiratory at this time.
[2024-02-13 07:59] LABS: INTERNATIONAL NORM RATIO 1.3 (0.9-1.1); Prothrombin Time 14.8 SEC (10.9-12.4)
[2024-02-13 08:01] LABS: Glucose, Whole Blood 176 mg/dL (60-115)
[2024-02-13 08:02] LABS: Partial Thromboplastin Time 32.5 SEC (26.0-36.8)
[2024-02-13] MEDS: levalbuterol HCL 2.5 MG, Ipratropium Bromide 0.5 MG INHALE (08:25)
[2024-02-13 08:29] LABS: Influenza A PCR NEGATIVE (Negative); Influenza B PCR NEGATIVE (Negative); Resp Syncy Virus RNA Qual PCR NEGATIVE (Negative); SARS COV2 PCR INHOUSE NEGATIVE (Negative)
[2024-02-13 08:47] LABS: Appearance Urine Clear; Color Urine Yellow; Glucose Urine UA Negative (Negative); Leukocyte Esterase Urine Negative (Negative); Nitrite Urine Negative (Negative); PH 6.5 (5.0-9.0); Urine Blood Negative (Negative); Urine Ketones Negative (Negative); Urine Protein Negative (Neg-Trace)
[2024-02-13 08:56] LABS: Hematocrit 39.8 % (42.0-52.0); Hemoglobin 10.6 g/dl (14.0-18.0); Mean Corpuscular HGB Conc 26.6 g/dl (31.0-36.0); Mean Corpuscular Hemoglobin 15.1 pg (27.0-33.0); Platelet Count 682 X10*3/uL (160-400); Red Blood Count 7.02 X10*6/uL (4.60-5.80); Red Cell Distribution Width 26.2 % (11.0-16.0)
[2024-02-13 08:57] LABS: Mean Corpuscular Volume 56.7 fL (80.0-98.0); White Blood Count 34.5 X10*3/uL (4.8-10.8)
[2024-02-13 09:16] LABS: Albumin Level 4.2 g/dL (3.5-5.0); Anion Gap 22 (12-20); Bilirubin Total 0.9 mg/dL (0.0-1.0); Blood Urea Nitrogen 12 mg/dL (9-16); Calcium 9.4 mg/dL (8.4-10.2); Carbon Dioxide 19 mmol/L (22-29); Chloride 105 mmol/L (96-108); Creatinine Clr Calc Pharmacy 40.1; Estimated Glomerular Filt Rate 58; Glucose Random 165 mg/dL (60-115); Magnesium 2.2 mg/dL (1.6-2.6); Potassium 3.6 mmol/L (3.3-5.1); Sodium 142 mmol/L (135-145); Total Protein 7.3 g/dL (6.5-8.0)
[2024-02-13 09:27] LABS: Atypical Lymph Absolute Manual 0.7 x10*3/uL; Atypical Lymphs Percent Manual 2 % (0-6); Band Neutrophils Percent 9 % (3-5); Basophils Abs Manual 0.7 X10*3/uL (0.0-0.2); Basophils Percent Manual 2 % (0-2); Eosinophils Absolute Manual 4.1 X10*3/uL (0.0-0.4); Eosinophils Percent Manual 12 % (0-4); Lymphocytes Absolute Manual 0.3 X10*3/uL (1.2-4.9); Lymphocytes Percent Manual 1 % (20-40); Monocytes Absolute Manual 0.3 X10*3/uL (0.1-1.2); Monocytes Percent Manual 1 % (2-11); Neutrophils Absolute Manual 28.3 X10*3/uL (2.0-8.3); Neutrophils Percent Manual 73 % (45-73)
[2024-02-13 09:28] LABS: Microcytosis 3+ (>30) /OIF; RBC Morphology NOTED
[2024-02-13 09:29] LABS: Giant Platelet PRESENT; Large Platelet PRESENT; Platelet Estimate INCREASED (NORMAL); Platelet Morphology Comment NOTED
[2024-02-13 09:32] LABS: Acanthocytes 2+ (3-5) /OIF; Burr Cells 1+ (0-2) /OIF; Hypochromasia 1+ (5-14) /OIF; Ovalocytes 2+ (15-30) /OIF; Polychromasia 2+ (3-5) /OIF; Schistocytes 2+ (3-5) /OIF; Target Cells 1+ (5-14) /OIF; Tear Drop Cells 2+ (3-5) /OIF
[2024-02-13 09:41] LABS: Alanine Aminotransferase 11 U/L (0-40); Alkaline Phosphatase 110 U/L (39-117); Aspartate Amino Transferase 32 U/L (5-37)
[2024-02-13 09:48] LABS: Reflex Lactate? Lactic Acid Added
[2024-02-13 10:08] LABS: B Type Natriuretic Peptide 160 pg/mL (<100)
[2024-02-13 10:30] LABS: VBG Base Excess 1.2 mmol/L; VBG HCO3 29 mmol/L (22-26); VBG pCO2 65 mmHg; VBG pH 7.26 (7.32-7.43); VBG pO2 52 mmHg
[2024-02-13 10:31] LABS: Venous Blood Gas Refer to POC result
[2024-02-13 10:44] LABS: Lactic Acid 3.2 mmol/L (0.5-2.0)
[2024-02-13 11:07] LABS: Troponin-I High Sensitivity 8.4 ng/L (<3.5-35.0)
[2024-02-13 12:22] LABS: Reflex Lactate? Lactic Acid Added
--- NOTE | 2024-02-13 12:27 | PM.IMHP ---
History of Present Illness Date of Service: 02/13/24 Attending physician on admission: Fan Johnston Chief Complaint: Chest pain, SOB Pt is an 88-year-old male with a PMH significant for COPD, subclavian stenosis s/p stenting, HTN, CAD w/ hx of NSTEMI in 12/2016, s/p cardiac catheterization w/o stenting, and current smoker who presents to the ED from home with chest pain, left arm pain, SOB, and palpitations since waking up this morning around 04:00. When EMS arrived they found pt to be hypotensive in the 80s, hypoxic in the 80s on RA, and tachycardic in the 170s. Pt did not respond to adenosine 6mg and 12mg IV doses. Was placed on a non-rebreather and brought to the hospital where he again did not respond to adenosine 12mg IV push. The patient was then cardioverted in the ED with biphasic defibrillator at 200 joules. Patient seen and evaluated in the ED were currently he has no acute medical complaints and just wants to go home. Currently denies chest pain/pressure, palpitations. No shortness a breath or difficulty breathing. Denies any recent weight loss or increased fatigue. Denies increasing lower leg edema. No PND. Denies orthopnea. Patient is overall a poor historian and unaware his PMH. Review of records from [facility] indicate patient was admitted to the hospital with similar complaints on 03/19/2022. Patient was noted at that time to be in SVT in the 190s. Vagal maneuvers did not work and patient was given 3 doses of adenosine which eventually decreased heart rate. Initial troponin was 23 with repeat with delta 56. Was initially placed on a heparin drip x48 which was stopped. Pt declined cardiac catheterization at that time. Previous cardiac catheterization in 01/13/2017 showed moderate disease of the mid to distal LAD with other vessel significantly calcified with mild luminal irregularities. No stenting was done at that time. In the ED pt was initially tachycardic at 177 and tachypneic up to 30 with soft BP as low as 68/50. Labs were significant for leukocytosis of 34.5, bandemia of 9, abnormal blood smear, creatinine 1.19 (baseline around 0.80), lactic acid 3.2, initial troponin 8.4 with repeat pending, and mildly elevated BNP of 160. VBG consistent with respiratory acidosis of pH 7.26, pCO2 65, and bicarb 29. UA negative for UTI. Tested negative for flu, RSV, COVID. CXR showed no radiographic evidence of acute cardiopulmonary findings. EKG demonstrated sinus tachycardia of 124 with PVCs. Pt was treated with adenosine 12 mg IV, fentanyl 50 mcg IV, and ketamine 100 mg IV. Pt will be admitted to the hospital for for treatment further evaluation of symptomatic and sustained SVT nonresponsive to chemical therapies and requiring cardioversion in the ED. Review of Systems Review of Systems: Negative except for that which is stated in the [facility] Medical History Polycythemia Fracture High cholesterol HTN (hypertension) Heart attack Family History Daughter Aortic aneurysm Surgical History S/P angiogram of extremity Hx of rotator cuff surgery H/O arthroscopy of shoulder Social History Cigarettes Per Day: 10 Advance Directives: No Advance Directives Information Provided: No Meds Allergies Allergy/AdvReac Type Severity Reaction Status Date / Time No Known Allergies Allergy Verified 02/13/24 07:36 [No Known Allergies*] Home Medications ?Medication ?Instructions ?Recorded ?Confirmed ?Last Taken ?Type atorvastatin 20 mg tablet 20 mg PO DAILY 02/22/20 02/13/24 02/13/24 09:00 History cilostazol 50 mg tablet 50 mg PO BID 02/22/20 02/13/24 02/13/24 09:00 History clopidogrel 75 mg tablet 75 mg PO DAILY 02/22/20 02/13/24 02/13/24 09:00 History albuterol sulfate 2.5 mg/3 mL 2.5 mg inhalation TID 02/13/24 02/13/24 02/13/24 09:00 History (0.083 %) solution for nebulization aspirin 81 mg chewable tablet 81 mg PO DAILY 02/13/24 02/13/24 02/13/24 09:00 History cyanocobalamin (vitamin B-12) 50 50 mcg PO DAILY 02/13/24 02/13/24 02/13/24 09:00 History mcg tablet (Vitamin B-12) fluticasone fur. 200 mcg-umeclid 1 ea inhalation DAILY 02/13/24 02/13/24 02/13/24 09:00 History 62.5 mcg-vilant 25 mcg inhalat.powder (Trelegy Ellipta) furosemide 40 mg tablet 40 mg PO DAILY 02/13/24 02/13/24 02/13/24 09:00 History metoprolol succinate 50 mg 50 mg PO DAILY 02/13/24 02/13/24 02/13/24 09:00 History tablet,extended release 24 hr hqszargfeuzr-[id number]-jegobg tablet 1 tab PO DAILY 02/13/24 02/13/24 02/13/24 09:00 History Physical Exam Vital Signs and Narrative: Vital Signs: Last Vital Signs Temp 97 F 02/13/24 09:50 Pulse 99 02/13/24 11:57 Resp 22 H 02/13/24 11:57 BP 110/69 02/13/24 11:57 Pulse Ox 100 02/13/24 11:57 O2 Del Method Room Air 02/13/24 11:57 O2 Flow Rate 3 02/13/24 09:50 BMI result Body Mass Index 24.8 Constitutional: Alert, in no acute distress. Mental Status: Oriented to person, place and time. Eyes: Pupils are equal, round, and reactive to light. Ear, Nose, and Throat: Oropharynx clear, mucous membranes moist. Ears and nose without deformities. Trachea midline. Respiratory: Diffuse wheezing and rhonchi bilaterally. Cardiovascular: S1, S2 regular. No murmurs, rubs, or gallops. Gastrointestinal: Abdomen soft, non-tender, non-distended. Normal bowel sounds. Neurologic: Cranial nerves II-XII are grossly intact bilaterally. No focal neurological deficits. Moves all extremities spontaneously. Skin: Warm, dry. Extremities: No edema. Psychiatric: Normal mood and affect. Results Labs 02/13/24 08:26 02/13/24 08:40 Labs: Laboratory Results - last 24 hr 02/13/24 02/13/24 02/13/24 07:34 07:40 07:47 MCV TNP MCH TNP MCHC TNP RDW TNP Plt Count TNP MPV TNP Immature Gran % (Auto) TNP Neut % (Auto) TNP Lymph % (Auto) TNP [place] % (Auto) TNP Eos % (Auto) TNP Baso % (Auto) TNP Lymph # (Auto) TNP [place] # (Auto) TNP Eos # (Auto) TNP Baso # (Auto) TNP Abs Immat Gran (auto) TNP Absolute Neuts (auto) TNP Absolute Nucleated RBC TNP Nucleated RBC % (auto) TNP Neutrophils % (Manual) Band Neutrophils % Lymphocytes % (Manual) Atypical Lymphs % (Man) Monocytes % (Manual) Eosinophils % (Manual) Basophils % (Manual) Abs Neuts (Manual) Lymphocytes # (Manual) Atyp Lymphs # (Manual) Monocytes # (Manual) Eosinophils # (Manual) Basophils # (Manual) Platelet Estimate Large Platelets Giant Platelets Plt Morphology Comment RBC Morphology Polychromasia Hypochromasia Microcytosis Target Cells Tear Drop Cells Ovalocytes [place] Cells Acanthocytes (Spur) Schistocytes Smear Tech's Comments TNP PT 14.8 H INR 1.3 H APTT 32.5 VBG pH VBG pCO2 VBG pO2 VBG HCO3 VBG O2 Saturation VBG Base Excess Anion Gap TNP Estim Creat Clear Calc TNP Estimated GFR TNP POC Glucose 176 H Random Glucose TNP Lactic Acid TNP Lactic Acid F/U @ 2Hr Calcium TNP Magnesium TNP Total Bilirubin TNP AST TNP ALT TNP Alkaline Phosphatase TNP Troponin I High Sens TNP B-Natriuretic Peptide TNP Total Protein TNP Albumin TNP Lipase TNP Urine Color Urine Appearance Urine pH Ur Specific [place] Urine Protein Urine Glucose (UA) Urine Ketones Urine Blood Urine Nitrite Ur Leukocyte Esterase Influenza Type A (PCR) NEGATIVE Influenza Type B (PCR) NEGATIVE RSV RNA Qual (PCR) NEGATIVE SARS-CoV-2 RNA (RT-PCR) NEGATIVE Blood Type Antibody Screen 02/13/24 02/13/24 02/13/24 07:52 08:26 08:40 MCV 56.7 L MCH 15.1 L MCHC 26.6 L RDW 26.2 H Plt Count 682 H MPV Not Reportable Immature Gran % (Auto) Cancelled Neut % (Auto) Cancelled Lymph % (Auto) Cancelled [place] % (Auto) Cancelled Eos % (Auto) Cancelled Baso % (Auto) Cancelled Lymph # (Auto) Cancelled [place] # (Auto) Cancelled Eos # (Auto) Cancelled Baso # (Auto) Cancelled Abs Immat Gran (auto) Cancelled Absolute Neuts (auto) Cancelled Absolute Nucleated RBC 0.000 Nucleated RBC % (auto) 0.0 Neutrophils % (Manual) 73 Band Neutrophils % 9 H Lymphocytes % (Manual) 1 L Atypical Lymphs % (Man) 2 Monocytes % (Manual) 1 L Eosinophils % (Manual) 12 H Basophils % (Manual) 2 Abs Neuts (Manual) 28.3 H Lymphocytes # (Manual) 0.3 L Atyp Lymphs # (Manual) 0.7 Monocytes # (Manual) 0.3 Eosinophils # (Manual) 4.1 H Basophils # (Manual) 0.7 H Platelet Estimate INCREASED Large Platelets PRESENT Giant Platelets PRESENT Plt Morphology Comment NOTED RBC Morphology NOTED Polychromasia 2+ (3-5) Hypochromasia 1+ (5-14) Microcytosis 3+ (>30) Target Cells 1+ (5-14) Tear Drop Cells 2+ (3-5) Ovalocytes 2+ (15-30) [place] Cells 1+ (0-2) Acanthocytes (Spur) 2+ (3-5) Schistocytes 2+ (3-5) Smear Tech's Comments PT INR APTT VBG pH TNP VBG pCO2 TNP VBG pO2 TNP VBG HCO3 TNP VBG O2 Saturation TNP VBG Base Excess TNP Anion Gap 22 H Estim Creat Clear Calc 40.1 Estimated GFR 58 POC Glucose Random Glucose 165 H Lactic Acid Lactic Acid F/U @ 2Hr Calcium 9.4 Magnesium 2.2 Total Bilirubin 0.9 AST 32 ALT 11 Alkaline Phosphatase 110 Troponin I High Sens 8.4 B-Natriuretic Peptide 160 H Total Protein 7.3 Albumin 4.2 Lipase Urine Color Yellow Urine Appearance Clear Urine pH 6.5 Ur Specific [place] 1.010 Urine Protein Negative Urine Glucose (UA) Negative Urine Ketones Negative Urine Blood Negative Urine Nitrite Negative Ur Leukocyte Esterase Negative Influenza Type A (PCR) Influenza Type B (PCR) RSV RNA Qual (PCR) SARS-CoV-2 RNA (RT-PCR) Blood Type A Positive Antibody Screen NEGATIVE 02/13/24 02/13/24 10:13 10:19 MCV MCH MCHC RDW Plt Count MPV Immature Gran % (Auto) Neut % (Auto) Lymph % (Auto) [place] % (Auto) Eos % (Auto) Baso % (Auto) Lymph # (Auto) [place] # (Auto) Eos # (Auto) Baso # (Auto) Abs Immat Gran (auto) Absolute Neuts (auto) Absolute Nucleated RBC Nucleated RBC % (auto) Neutrophils % (Manual) Band Neutrophils % Lymphocytes % (Manual) Atypical Lymphs % (Man) Monocytes % (Manual) Eosinophils % (Manual) Basophils % (Manual) Abs Neuts (Manual) Lymphocytes # (Manual) Atyp Lymphs # (Manual) Monocytes # (Manual) Eosinophils # (Manual) Basophils # (Manual) Platelet Estimate Large Platelets Giant Platelets Plt Morphology Comment RBC Morphology Polychromasia Hypochromasia Microcytosis Target Cells [place]ear [place] Cells Ovalocytes [place] Cells Acanthocytes (Spur) Schistocytes Smear Tech's Comments PT INR APTT VBG pH 7.26 L VBG pCO2 65 VBG pO2 52 VBG HCO3 29 H VBG O2 Saturation 75.0 VBG Base Excess 1.2 Anion Gap Estim Creat Clear Calc Estimated GFR POC Glucose Random Glucose Lactic Acid 3.2 H* Lactic Acid F/U @ 2Hr Cancelled Calcium Magnesium Total Bilirubin AST ALT Alkaline Phosphatase Troponin I High Sens B-Natriuretic Peptide Total Protein Albumin Lipase Urine Color Urine Appearance Urine pH Ur Specific [place] Urine Protein Urine Glucose (UA) Urine Ketones Urine Blood Urine Nitrite Ur Leukocyte Esterase Influenza Type A (PCR) Influenza Type B (PCR) RSV RNA Qual (PCR) SARS-CoV-2 RNA (RT-PCR) Blood Type Antibody Screen Imaging Radiologist's Impressions: Impressions Chest X-Ray 02/13/24 07:35 IMPRESSION: No radiographic evidence of acute cardiopulmonary findings.. Electronically signed by: Cristiano Givens MD 02/13/2024 08:59 AM [facility] Assessment and Plan (1) Sustained SVT: Status: Acute Plan Pt is an 88-year-old male with a PMH significant for COPD, subclavian stenosis s/p stenting, HTN, CAD w/ hx of NSTEMI in 12/2016, s/p cardiac catheterization w/o stenting, and current smoker who presents to the ED from home with chest pain, left arm pain, SOB, and palpitations since waking up this morning around 04:00. Pt will be admitted to the hospital for for treatment further evaluation of symptomatic and sustained SVT nonresponsive to chemical therapies and requiring cardioversion in the ED. Sustained SVT Pt with SOB, CP, palpitations, hypoxia, hypotension since this morning, HR in 170s Non-responsive to adenosine 6mg IV and 12 mg IV x2 doses Pt cardioverted in the ED Currently pt is asymptomatic s/p cardioversion Echocardiogram Cardiology consult Continue metoprolol Monitor on telemetry Elevated troponins Initial troponin 8.4 with repeat 149.6 Similar trop[place] elevation [place] [facility] [place] during another SVT episode Pt asymptomatic, EKG without significant ischemic changes Likely type two in the setting of increased demand Will recheck troponin Monitor on telemetry Leukocytosis WBC 34.5, in line with previous Chronically elevated No sepsis: no clear infectious source Pt does not meet SIRS criteria: leukocytosis chronic, tachycardia, tachypnea, and hypotension in the setting of sustained SVT No indication for antibiotics at this time Lactic acidosis Initial lactic acid 3.2 with repeat 1.9 after fluids In the setting of sustained SVT, not sepsis Abnormal CBC Suggestive of myeloproliferative disease Does not apparently carry any formal diagnosis or follow with provider for this Heme/onc consult CAD/HLD Continue aspirin, Plavix, and statin Full Code Attending:?Dr. Johnston DVT Prophylaxis: Lovenox Pt will require a hospitalization of at least two nights for treatment of?symptomatic and sustained SVT nonresponsive to chemical therapies requiring cardioversion in the ED patient require close cardiac monitoring, echocardiogram, and specialist consultation with Cardiology. Quality Stroke Does the patient have a stroke diagnosis?: No VTE Prior VTE?: No VTE Risk Level:: Medical - moderate - high VTE Device Contraindication: Treatment Not Indicated VTE Drug Contraindication: N/A - Med Ordered
--- NOTE | 2024-02-13 12:58 | PHA.MEDREC ---
Pharmacy Consult ? Medication Reconciliation Pharmacy has completed the medication reconciliation. Spoke to patient's son Silverio who was able to tell me which medications he takes. Also states he's on OTC Vitamin B12 and Centrum multivitamin. Last took his meds this morning.
[2024-02-13 13:19] LABS: Troponin-I High Sensitivity 149.6 ng/L (<3.5-35.0)
[2024-02-13 14:14] LABS: ~Lactic Acid-LAB USE ONLY 1.9 mmol/L (0.5-2.0)
[2024-02-13] MEDS: Albuterol/Iprat 2.5/0.5MG 3 ML AMPUL.NEB INHALE ×2 (14:48→19:05)
--- NOTE | 2024-02-13 15:00 | CA_ITS ---
Transthoracic Echocardiogram Patient (Last, First, Middle): Wyatt Shelton, Gender: Male Date of : 1935 Age: 88 Procedure Date: 02/13/2024 Procedure Type: Transthoracic Echocardiogram Location: [facility] Height: 170.18 cm Weight: 70. kg BSA: 1.81 m2 Heart Rate: bpm BP: 101 / 63 mmHg Fancy Packer: Referring MD: Nakita WHITE Symptoms: SVT s/p cardioversion, elevated BNP Study Quality: Adequate ECG Rhythm: Sinus Conclusions: - The left ventricular systolic function is normal. The visually estimated ejection fraction is between 60-65%. - No obvious valvular pathology seen on this study. - There is mild dilatation of the ascending aorta measuring 4.10 cm. Findings Left Ventricle Normal left ventricular cavity size. There is normal left ventricular wall thickness. The left ventricular systolic function is normal. The visually estimated ejection fraction is between 60-65%. There is no evidence of regional wall motion abnormalities. Evidence suggests grade I (mild) diastolic dysfunction. Right Ventricle Normal right ventricular cavity size and systolic function. Atria Both atria are normal in size. Aortic Valve There is a normal trileaflet aortic valve. There is mild calcification of the aortic valve. There is no aortic valve stenosis. There is no aortic valve regurgitation. Mitral Valve The mitral valve appears normal. There is no mitral valve regurgitation. There is no mitral valve stenosis. Pulmonic Valve The pulmonic valve is likely normal. Tricuspid Valve Normal tricuspid valve structure. There is trace tricuspid valve regurgitation. There is no evidence of pulmonary hypertension. Great Vessels There is mild dilatation of the ascending aorta measuring 4.10 cm. Small plaque is seen in the sino tubular ridge. Venous The inferior vena cava is normal in size and collapses greater than 50% with inspiration. Pericardium/Pleural There is no evidence of pericardial effusion. Prior Study Comparison No significant change compared to prior study dated: 12/31/2017. Recommendations, Care & Conclusions No obvious valvular pathology seen on this study. Measurements 2D Linear Measurements IVSd: 1.03 0.6-0.9/0.6-1.0 cm LVIDd: 4.16 3.9-5.3/4.2-5.9 cm LVIDd Index: 2.30 2.4-3.2/2.2-3.1 cm/m2 LVIDs: 2.44 2.0-3.6 cm LVPWd: 1.02 0.7-1.1 cm Ao Root: 3.60 2.1-3.5 cm LA Diam: 2.90 2.7-3.8/3.0-4.0 cm LAIDs Index: 1.60 1.5-2.3 cm/m2 LV Mass: 174.19 67-162/88-224 g LV Mass Index: 96.24 43-95/49-115 g/m2 LVOT Diam: 2.40 3.0+(-)1.3 cm 2D Systolic Function EF 4C: 63.80 >55% EF 2C: 59.90 >55% Mitral Valve MV VTI: 0.28 MV Pk Aryan: 1.36 MV Mn Aryan: 0.81 MV Pk Grad: 7.00 MV Mn Grad: 3.00 MV Pk E: 1.26 MV Decel Time: 137.00 E'Lateral: 7.07 E'Medial: 6.31 E/E' Med: 20.00 E/E' Lat: 17.80 PHT: 40.00 MVA PHT: 5.50 MVA Continuity: 2.89 Decel [place]: 9.24 Aortic Valve AoV Pk Aryan: 2.07 AoV Mn Aryan: 1.28 AoV VTI: 0.36 AoV Pk Grad: 17.00 Aov Mn Grad: 8.00 KANDACE Cont.VTI: 2.22 LVOT LVOT Pk Aryan: 0.90 LVOT Mn Aryan: 0.64 LVOT VTI: 0.18 LVOT Pk Grad: 3.00 LVOT Mn Grad: 2.00 LVOT Diam: 2.40 LVOT Area: 4.52 Diastolic Function MV Pk E: 1.26 E'Medial: 6.31 E/E' Med: 20.00 E' Laterial: 7.07 E/E' Lat: 17.80 Right Ventricle TAPSE (mm): 32.00 TVS' Aryan: 14.00 Tricuspid Valve TR Pk Aryan: 2.41 TR Pk Grad: 23.00 RA Press: 3.00 RVSP: 26.00 Great Vessels Aorta Ao Root-2D: 3.60 2.0-3.7 cm Ao Asc: 4.10 2.1-3.4 cm Pulmonary Valve PV Pk Aryan: 1.08 Peak PV Grad: 5.00 Updated in Other Vendor System with Status of Final Keith Choudhury MD electronically signed on 02/14/2024 11:59:55 AM with status of Final
[2024-02-13] MEDS: 0.9 % Sodium Chloride Flush 3 ML SYRINGE IVFLUSH ×2 (16:26→20:32)
[2024-02-13] MEDS: Enoxaparin Sodium 40 MG/0.4 ML SYRINGE SUBCUT (16:26)
[2024-02-13 17:34] LABS: Troponin-I High Sensitivity 227.5 ng/L (<3.5-35.0)
[2024-02-13] MEDS: Lactated Ringers 500 ML IV (20:32)
[2024-02-13] MEDS: cilostazoL 50 MG TABLET PO (22:41)
[2024-02-13] MEDS: Calcium Carbonate 750 MG TAB.CHEW PO (23:53)
[2024-02-14] VITALS (10 sets, daily range): BP systolic 96–117; BP diastolic 52–67; PULSE 77–102; RESP 18–22; TEMP 36.2–36.6; O2SAT 90–96
[2024-02-14] MEDS: Benzonatate 100 MG CAPSULE 200 MG PO (05:58)
[2024-02-14 07:15] LABS: Anion Gap 12 (12-20); Blood Urea Nitrogen 8 mg/dL (9-16); Calcium 8.7 mg/dL (8.4-10.2); Carbon Dioxide 27 mmol/L (22-29); Chloride 107 mmol/L (96-108); Creatinine Clr Calc Pharmacy 56.8; Estimated Glomerular Filt Rate > 60; Glucose Random 90 mg/dL (60-115); Potassium 3.6 mmol/L (3.3-5.1); Sodium 142 mmol/L (135-145)
[2024-02-14] MEDS: Albuterol/Iprat 2.5/0.5MG 3 ML AMPUL.NEB INHALE ×4 (07:21→18:43)
[2024-02-14 07:30] LABS: Troponin-I High Sensitivity 181.9 ng/L (<3.5-35.0)
[2024-02-14 07:45] LABS: Hematocrit 35.6 % (42.0-52.0); Hemoglobin 9.7 g/dl (14.0-18.0); Mean Corpuscular HGB Conc 27.2 g/dl (31.0-36.0); Mean Corpuscular Hemoglobin 15.2 pg (27.0-33.0); Platelet Count 605 X10*3/uL (160-400); Red Blood Count 6.39 X10*6/uL (4.60-5.80); Red Cell Distribution Width 25.6 % (11.0-16.0)
[2024-02-14 07:51] LABS: Mean Corpuscular Volume 55.7 fL (80.0-98.0); White Blood Count 38.3 X10*3/uL (4.8-10.8)
[2024-02-14] MEDS: 0.9 % Sodium Chloride Flush 3 ML SYRINGE IVFLUSH ×2 (07:59→20:53)
[2024-02-14] MEDS: Multivitamin TABLET 1 TAB PO (07:59)
[2024-02-14] MEDS: cilostazoL 50 MG TABLET PO ×2 (07:59→20:53)
[2024-02-14] MEDS: Furosemide 40 MG TABLET PO (07:59)
[2024-02-14] MEDS: Aspirin 81 MG TAB.CHEW PO (07:59)
[2024-02-14] MEDS: Clopidogrel Bisulfate 75 MG TABLET PO (07:59)
[2024-02-14] MEDS: Metoprolol Succinate ER 50 MG TAB.ER.24H PO (07:59)
[2024-02-14] MEDS: Atorvastatin Calcium 20 MG TABLET PO (07:59)
--- NOTE | 2024-02-14 08:17 | MHC.CM.PN ---
CM met with Patient at bedside ([facility]) and addressed IMM with him, providing Patient with the original and a copy has been placed on the chart. Patient lives in a house with his and 2 adult Sons/Caregivers and one of the Sons will arrange for transport to home (no car). Patient uses a walker to assist with mobility and home self care vs new [facility] is the tentative plan. CM has initiated and will follow for dc planning.Patient declined a HCP.
--- NOTE | 2024-02-14 08:39 | P.PNIM_ITS ---
Subjective Subjective Date of Service: 02/14/24 Interval History: Feels back to baseline Physical Exam 2 Vital Signs: Vital Signs: Last Vital Signs Temp 97.1 F 02/14/24 07:13 Pulse 100 02/14/24 07:23 Resp 22 H 02/14/24 07:23 BP 106/65 02/14/24 07:13 Pulse Ox 92 02/14/24 07:13 O2 Del Method Room Air 02/14/24 07:13 O2 Flow Rate 3 02/13/24 13:22 BMI result Body Mass Index 23.9 General: AO X 3, no acute distress Resp: CTA bilateral, no accessory muscles used CVS: S1,S2,RRR GI: soft, non tender, non distended Neuro: motor grossly intact, alert Psych: appropriate affect, appropriate insight Objective Data Active Medications Acetaminophen (Acetaminophen 325 Mg Tablet) 650 mg PO Q6H PRN PRN Reason: Pain, Mild (Pain Scale 1-3), fever or headache Albuterol/Ipratropium (Albuterol/Iprat 2.5/0.5mg 3 Ml Ampul.Neb) 3 ml INHALE RQ4H WHILE AWAKE [facility] Last Admin: 02/14/24 07:21 Dose: 3 ml Documented By: COLTON Aspirin (Aspirin 81 Mg Tab.Chew) 81 mg PO DAILY [facility] Last Admin: 02/14/24 07:59 Dose: 81 mg Documented By: YANA Atorvastatin Calcium (Atorvastatin Calcium 20 Mg Tablet) 20 mg PO DAILY [facility] Last Admin: 02/14/24 07:59 Dose: 20 mg Documented By: YANA Benzonatate (Benzonatate 100 Mg Capsule) 200 mg PO TID PRN PRN Reason: Cough Last Admin: 02/14/24 05:58 Dose: 200 mg Documented By: BJORN Calcium Carbonate (Calcium Carbonate 750 Mg Tab.Chew) 750 mg PO Q4H PRN PRN Reason: Heartburn Last Admin: 02/13/24 23:53 Dose: 750 mg Documented By: BJORN Cilostazol (Cilostazol 50 Mg Tablet) 50 mg PO BID [facility] Last Admin: 02/14/24 07:59 Dose: 50 mg Documented By: YANA Clopidogrel Bisulfate (Clopidogrel Bisulfate 75 Mg Tablet) 75 mg PO DAILY [facility] Last Admin: 02/14/24 07:59 Dose: 75 mg Documented By: YANA Cyanocobalamin (Cyanocobalamin (Vitamin B-12) 100 Mcg Tablet) 50 mcg PO DAILY [facility] Last Admin: 02/14/24 08:00 Dose: Not Given Documented By: YANA Non-Admin Reason: Med Not Available Enoxaparin Sodium (Enoxaparin Sodium 40 Mg/0.4 Ml Syringe) 40 mg SUBCUT Q24H [facility] Last Admin: 02/13/24 16:26 Dose: 40 mg Documented By: BELEM Fluticasone/Umeclidinium/Vilanterol (Fluticasone/Umeclidinium/Vilanterol 200/62.5/25 Blst.W.Dev) 1 puff INHALE RDAILY [facility] Last Admin: 02/14/24 07:23 Dose: Not Given Documented By: COLTON Non-Admin Reason: pharmacy called for med Furosemide (Furosemide 40 Mg Tablet) 40 mg PO DAILY [facility]; Protocol Last Admin: 02/14/24 07:59 Dose: 40 mg Documented By: YANA Magnesium Hydroxide (Milk Of Magnesia 30 Ml Oral.Susp) 30 ml PO DAILY PRN PRN Reason: Constipation Melatonin (Melatonin 3 Mg Tablet) 6 mg PO BEDTIME PRN PRN Reason: Insomnia Metoprolol Succinate (Metoprolol Succinate Er 50 Mg Tab.Er.24h) 50 mg PO DAILY [facility]; Protocol Last Admin: 02/14/24 07:59 Dose: 50 mg Documented By: YANA Multivitamins/Vitamin C (Multivitamin Tablet) 1 tab PO DAILY [facility] Last Admin: 02/14/24 07:59 Dose: 1 tab Documented By: YANA Ondansetron HCl (Ondansetron Hcl 4 Mg/2 Ml Vial) 4 mg IVPUSH Q8H PRN PRN Reason: Nausea and Vomiting Sodium Chloride (0.9 % Sodium Chloride Flush 3 Ml Syringe) 3 ml IVFLUSH QSHIFT [facility] Last Admin: 02/14/24 07:59 Dose: 3 ml Documented By: YANA Labs 02/14/24 06:41 02/14/24 06:41 Labs: Laboratory Results - last 24 hr 02/13/24 02/13/24 02/13/24 07:40 07:52 08:26 MCV TNP 56.7 L MCH TNP 15.1 L MCHC TNP 26.6 L RDW TNP 26.2 H Plt Count TNP 682 H MPV TNP Not Reportable Immature Gran % (Auto) TNP Cancelled Neut % (Auto) TNP Cancelled Lymph % (Auto) TNP Cancelled [place] % (Auto) TNP Cancelled Eos % (Auto) TNP Cancelled Baso % (Auto) TNP Cancelled Lymph # (Auto) TNP Cancelled [place] # (Auto) TNP Cancelled Eos # (Auto) TNP Cancelled Baso # (Auto) TNP Cancelled Abs Immat Gran (auto) TNP Cancelled Absolute Neuts (auto) TNP Cancelled Absolute Nucleated RBC TNP 0.000 Nucleated RBC % (auto) TNP 0.0 Neutrophils % (Manual) 73 Band Neutrophils % 9 H Lymphocytes % (Manual) 1 L Atypical Lymphs % (Man) 2 Monocytes % (Manual) 1 L Eosinophils % (Manual) 12 H Basophils % (Manual) 2 Abs Neuts (Manual) 28.3 H Lymphocytes # (Manual) 0.3 L Atyp Lymphs # (Manual) 0.7 Monocytes # (Manual) 0.3 Eosinophils # (Manual) 4.1 H Basophils # (Manual) 0.7 H Platelet Estimate INCREASED Large Platelets PRESENT Giant Platelets PRESENT Plt Morphology Comment NOTED RBC Morphology NOTED Polychromasia 2+ (3-5) Hypochromasia 1+ (5-14) Microcytosis 3+ (>30) Target Cells 1+ (5-14) Tear Drop Cells 2+ (3-5) Ovalocytes 2+ (15-30) Jason Cells 1+ (0-2) Acanthocytes (Spur) 2+ (3-5) Schistocytes 2+ (3-5) Smear Tech's Comments TNP VBG pH TNP VBG pCO2 TNP VBG pO2 TNP VBG HCO3 TNP VBG O2 Saturation TNP VBG Base Excess TNP Anion Gap TNP Estim Creat Clear Calc TNP Estimated GFR TNP Random Glucose TNP Lactic Acid TNP Lactic Acid F/U @ 2Hr Calcium TNP Magnesium TNP Total Bilirubin TNP AST TNP ALT TNP Alkaline Phosphatase TNP Troponin I High Sens TNP B-Natriuretic Peptide TNP 160 H Total Protein TNP Albumin TNP Lipase TNP Urine Color Urine Appearance Urine pH Ur Specific [place] Urine Protein Urine Glucose (UA) Urine Ketones Urine Blood Urine Nitrite Ur Leukocyte Esterase Blood Type A Positive Antibody Screen NEGATIVE 02/13/24 02/13/24 02/13/24 08:40 10:13 10:19 MCV MCH MCHC RDW Plt Count MPV Immature Gran % (Auto) Neut % (Auto) Lymph % (Auto) [place] % (Auto) Eos % (Auto) Baso % (Auto) Lymph # (Auto) [place] # (Auto) Eos # (Auto) Baso # (Auto) Abs Immat Gran (auto) Absolute Neuts (auto) Absolute Nucleated RBC Nucleated RBC % (auto) Neutrophils % (Manual) Band Neutrophils % Lymphocytes % (Manual) Atypical Lymphs % (Man) Monocytes % (Manual) Eosinophils % (Manual) Basophils % (Manual) Abs Neuts (Manual) Lymphocytes # (Manual) Atyp Lymphs # (Manual) Monocytes # (Manual) Eosinophils # (Manual) Basophils # (Manual) Platelet Estimate Large Platelets Giant Platelets Plt Morphology Comment RBC Morphology Polychromasia Hypochromasia Microcytosis Target Cells Tear Drop Cells Ovalocytes Jason Cells Acanthocytes (Spur) Schistocytes Smear Tech's Comments VBG pH 7.26 L VBG pCO2 65 VBG pO2 52 VBG HCO3 29 H VBG O2 Saturation 75.0 VBG Base Excess 1.2 Anion Gap 22 H Estim Creat Clear Calc 40.1 Estimated GFR 58 Random Glucose 165 H Lactic Acid 3.2 H* Lactic Acid F/U @ 2Hr Cancelled Calcium 9.4 Magnesium 2.2 Total Bilirubin 0.9 AST 32 ALT 11 Alkaline Phosphatase 110 Troponin I High Sens 8.4 B-Natriuretic Peptide Total Protein 7.3 Albumin 4.2 Lipase Urine Color Yellow Urine Appearance Clear Urine pH 6.5 Ur Specific [place] 1.010 Urine Protein Negative Urine Glucose (UA) Negative Urine Ketones Negative Urine Blood Negative Urine Nitrite Negative Ur Leukocyte Esterase Negative Blood Type Antibody Screen 02/13/24 02/13/24 02/13/24 12:12 13:55 16:57 MCV MCH MCHC RDW Plt Count MPV Immature Gran % (Auto) Neut % (Auto) Lymph % (Auto) [place] % (Auto) Eos % (Auto) Baso % (Auto) Lymph # (Auto) [place] # (Auto) Eos # (Auto) Baso # (Auto) Abs Immat Gran (auto) Absolute Neuts (auto) Absolute Nucleated RBC Nucleated RBC % (auto) Neutrophils % (Manual) Band Neutrophils % Lymphocytes % (Manual) Atypical Lymphs % (Man) Monocytes % (Manual) Eosinophils % (Manual) Basophils % (Manual) Abs Neuts (Manual) Lymphocytes # (Manual) Atyp Lymphs # (Manual) Monocytes # (Manual) Eosinophils # (Manual) Basophils # (Manual) Platelet Estimate Large Platelets Giant Platelets Plt Morphology Comment RBC Morphology Polychromasia Hypochromasia Microcytosis Target Cells Tear Drop Cells Ovalocytes Jason Cells Acanthocytes (Spur) Schistocytes Smear Tech's Comments VBG pH VBG pCO2 VBG pO2 VBG HCO3 VBG O2 Saturation VBG Base Excess Anion Gap Estim Creat Clear Calc Estimated GFR Random Glucose Lactic Acid Lactic Acid F/U @ 2Hr 1.9 Calcium Magnesium Total Bilirubin AST ALT Alkaline Phosphatase Troponin I High Sens 149.6 H* D 227.5 H* D B-Natriuretic Peptide Total Protein Albumin Lipase Urine Color Urine Appearance Urine pH Ur Specific [place] Urine Protein Urine Glucose (UA) Urine Ketones Urine Blood Urine Nitrite Ur Leukocyte Esterase Blood Type Antibody Screen 02/14/24 06:41 MCV 55.7 L MCH 15.2 L MCHC 27.2 L RDW 25.6 H Plt Count 605 H MPV Not Reportable Immature Gran % (Auto) Neut % (Auto) Lymph % (Auto) [place] % (Auto) Eos % (Auto) Baso % (Auto) Lymph # (Auto) [place] # (Auto) Eos # (Auto) Baso # (Auto) Abs Immat Gran (auto) Absolute Neuts (auto) Absolute Nucleated RBC 0.000 Nucleated RBC % (auto) 0.0 Neutrophils % (Manual) Band Neutrophils % Lymphocytes % (Manual) Atypical Lymphs % (Man) Monocytes % (Manual) Eosinophils % (Manual) Basophils % (Manual) Abs Neuts (Manual) Lymphocytes # (Manual) Atyp Lymphs # (Manual) Monocytes # (Manual) Eosinophils # (Manual) Basophils # (Manual) Platelet Estimate Large Platelets Giant Platelets Plt Morphology Comment RBC Morphology Polychromasia Hypochromasia Microcytosis Target Cells Tear Drop Cells Ovalocytes Jason Cells Acanthocytes (Spur) Schistocytes Smear Tech's Comments VBG pH VBG pCO2 VBG pO2 VBG HCO3 VBG O2 Saturation VBG Base Excess Anion Gap 12 Estim Creat Clear Calc 56.8 Estimated GFR > 60 Random Glucose 90 Lactic Acid Lactic Acid F/U @ 2Hr Calcium 8.7 D Magnesium Total Bilirubin AST ALT Alkaline Phosphatase Troponin I High Sens 181.9 H* B-Natriuretic Peptide Total Protein Albumin Lipase Urine Color Urine Appearance Urine pH Ur Specific [place] Urine Protein Urine Glucose (UA) Urine Ketones Urine Blood Urine Nitrite Ur Leukocyte Esterase Blood Type Antibody Screen Assessment and Plan (1) Sustained SVT: Status: Acute Plan 88M PMH SVT, COPD, subclavian stenosis, hypertension, coronary artery disease status post stent presented with chest pain, shortness breath, palpitations found to be an unstable SVT underwent emergent cardioversion in ED. Acute hypoxic and hypercapnic respiratory failure and cardiogenic shock due to SVT Now in normal sinus rhythm and on room air after cardioversion, follow up echo, cardio, continue metoprolol Elevated troponin Due to demand ischemia due to above, doubt ACS Leukocytosis and thrombocytosis Chronic, suspect underlying myeloproliferative disease Hematology eval Acute lactic acidosis Due to cardiogenic shock not sepsis Coronary artery disease Dual antiplatelet, statin DVT prophylaxis with Lovenox Full Code reason for continued hospitalization: Expert evaluation pending Quality Stroke Does the patient have a stroke diagnosis?: No VTE Prior VTE?: No VTE Risk Level:: Medical - moderate - high VTE Device Contraindication: Treatment Not Indicated VTE Drug Contraindication: N/A - Med Ordered
--- NOTE | 2024-02-14 09:24 | PM.HEMONCCN ---
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 His anti inrinsic factor antibody was negative and his level normalized with oral B12. It was not pernicious anemia. He presents now with leucocytosis and thrombocytosis. 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 In 2019 his hematocrit was 62.5 and he underwent regular therapeutic phlebotomy until his ferritin was 16 which controlled the red cell population.. His platelet count was elevated 04-03-2023 but he did not return for treatment. It is now 605.He has been very noncompliant with office visits. He should be treated with anagrelide 1.0 mg po daily for the platelets. No other acute treatmnent is needed today Review of Systems - ENT Reports system reviewed and no additional complaints, except as documented - Cardiovascular Reports shortness of breath causing sudden awakening - Respiratory Reports chest congestion - Gastrointestinal Reports feeling full early - Genitourinary Genitourinary: Reports urinary frequency - Neurologic Reports memory loss [facility] Medical History: Medical History (Last Reviewed 02/13/24 @ 15:46 by Cheryl Singleton RN) Fracture Heart attack High cholesterol HTN (hypertension) Polycythemia Family History: Family History (Last Reviewed 02/13/24 @ 14:19 by CINDY Bauer) Daughter Aortic aneurysm Surgical History: Surgical History (Last Reviewed 02/13/24 @ 15:46 by Cheryl Singleton RN) H/O arthroscopy of shoulder Hx of rotator cuff surgery S/P angiogram of extremity Social History: Social History (Last Reviewed 02/13/24 @ 14:19 by CINDY Bauer) Living Situation History: Household Members: Family Housing: House Do you presently have visiting nurse or other home services: No Tobacco History: Patient Tobacco Use Status: Current everyday Tobacco Tobacco use type: Cigarette Cigarette Packs Per Day: 1 Second Hand Smoke Exposure: No Occupation Assessmet: service: No Home Medications and Allergies Current Medications: Current Medications Acetaminophen (Acetaminophen 325 Mg Tablet) 650 mg PO Q6H PRN PRN Reason: Pain, Mild (Pain Scale 1-3), fever or headache Albuterol/Ipratropium (Albuterol/Iprat 2.5/0.5mg 3 Ml Ampul.Neb) 3 ml INHALE RQ4H WHILE AWAKE [facility] Last Admin: 02/14/24 07:21 Dose: 3 ml Aspirin (Aspirin 81 Mg Tab.Chew) 81 mg PO DAILY [facility] Last Admin: 02/14/24 07:59 Dose: 81 mg Atorvastatin Calcium (Atorvastatin Calcium 20 Mg Tablet) 20 mg PO DAILY [facility] Last Admin: 02/14/24 07:59 Dose: 20 mg Benzonatate (Benzonatate 100 Mg Capsule) 200 mg PO TID PRN PRN Reason: Cough Last Admin: 02/14/24 05:58 Dose: 200 mg Calcium Carbonate (Calcium Carbonate 750 Mg Tab.Chew) 750 mg PO Q4H PRN PRN Reason: Heartburn Last Admin: 02/13/24 23:53 Dose: 750 mg Cilostazol (Cilostazol 50 Mg Tablet) 50 mg PO BID [facility] Last Admin: 02/14/24 07:59 Dose: 50 mg Clopidogrel Bisulfate (Clopidogrel Bisulfate 75 Mg Tablet) 75 mg PO DAILY [facility] Last Admin: 02/14/24 07:59 Dose: 75 mg Cyanocobalamin (Cyanocobalamin (Vitamin B-12) 100 Mcg Tablet) 50 mcg PO DAILY [facility] Last Admin: 02/14/24 08:00 Dose: Not Given Enoxaparin Sodium (Enoxaparin Sodium 40 Mg/0.4 Ml Syringe) 40 mg SUBCUT Q24H [facility] Last Admin: 02/13/24 16:26 Dose: 40 mg Fluticasone/Umeclidinium/Vilanterol (Fluticasone/Umeclidinium/Vilanterol 200/62.5/25 Blst.W.Dev) 1 puff INHALE RDAILY [facility] Last Admin: 02/14/24 07:23 Dose: Not Given Furosemide (Furosemide 40 Mg Tablet) 40 mg PO DAILY [facility]; Protocol Last Admin: 02/14/24 07:59 Dose: 40 mg Magnesium Hydroxide (Milk Of Magnesia 30 Ml Oral.Susp) 30 ml PO DAILY PRN PRN Reason: Constipation Melatonin (Melatonin 3 Mg Tablet) 6 mg PO BEDTIME PRN PRN Reason: Insomnia Metoprolol Succinate (Metoprolol Succinate Er 50 Mg Tab.Er.24h) 50 mg PO DAILY [facility]; Protocol Last Admin: 02/14/24 07:59 Dose: 50 mg Multivitamins/Vitamin C (Multivitamin Tablet) 1 tab PO DAILY [facility] Last Admin: 02/14/24 07:59 Dose: 1 tab Ondansetron HCl (Ondansetron Hcl 4 Mg/2 Ml Vial) 4 mg IVPUSH Q8H PRN PRN Reason: Nausea and Vomiting Sodium Chloride (0.9 % Sodium Chloride Flush 3 Ml Syringe) 3 ml IVFLUSH QSHIFT [facility] Last Admin: 02/14/24 07:59 Dose: 3 ml Home Medications ?Medication ?Instructions ?Recorded ?Confirmed ?Type atorvastatin 20 mg tablet 20 mg PO DAILY 02/22/20 02/13/24 History cilostazol 50 mg tablet 50 mg PO BID 02/22/20 02/13/24 History clopidogrel 75 mg tablet 75 mg PO DAILY 02/22/20 02/13/24 History albuterol sulfate 2.5 mg/3 mL 2.5 mg inhalation TID 02/13/24 02/13/24 History (0.083 %) solution for nebulization aspirin 81 mg chewable tablet 81 mg PO DAILY 02/13/24 02/13/24 History cyanocobalamin (vitamin B-12) 50 50 mcg PO DAILY 02/13/24 02/13/24 History mcg tablet (Vitamin B-12) fluticasone fur. 200 mcg-umeclid 1 ea inhalation DAILY 02/13/24 02/13/24 History 62.5 mcg-vilant 25 mcg inhalat.powder (Trelegy Ellipta) furosemide 40 mg tablet 40 mg PO DAILY 02/13/24 02/13/24 History metoprolol succinate 50 mg 50 mg PO DAILY 02/13/24 02/13/24 History tablet,extended release 24 hr [id number] tablet 1 tab PO DAILY 02/13/24 02/13/24 History Allergies Allergy/AdvReac Type Severity Reaction Status Date / Time No Known Allergies Allergy Verified 02/13/24 07:36 [No Known Allergies*] Physical Exam Vital signs: Vital Signs Temp 97.1 F 02/14/24 07:13 Pulse 100 02/14/24 07:23 Resp 22 H 02/14/24 07:23 BP 106/65 02/14/24 07:13 Pulse Ox 92 02/14/24 07:13 O2 Del Method Room Air 02/14/24 07:13 O2 Flow Rate 3 02/13/24 13:22 Intake & Output 02/13/24 02/14/24 02/14/24 18:59 06:59 18:59 Intake Total 1000 / 1600 600 / 1600 240 / 240 Output Total 300 / 300 100 / 100 Balance 1000 / 1300 300 / 1300 140 / 140 Urine Output (Average ml/kg/hr) 0.36 0.12 Intake: Intake, Oral Amount 100 / 100 240 / 240 Intake, IV Amount 1000 / 1500 500 / 1500 0.9 % Sodium Chloride 1,000 ml 1000 / 1000 @ 999 mls/hr IV .Q1H1M STA Rx#: [id number] Lactated Ringers 500 ml @ 500 500 / 500 mls/hr IV .Q1H CEE Rx#: [id number] Output: Output, Urine Amount 300 / 300 100 / 100 Output, Stool Amount 0 / 0 Other: Breakfast % Eaten 50% Urine Urinal Urine Color Yellow Last Bowel Movement 02/11/24 02/11/24 Weight 69.1 kg [place] Weight in Grams [id number] Weight 69.1 kg - Constitutional Present: no acute distress - Routine HEENT Exam Head: Present: atraumatic ENT: Present: mucous membranes moist - Routine Neck Exam Present: supple - Routine Respiratory Exam Present: decreased breath sounds - Routine Cardiovascular Exam Cardiovascular: Present: RRR - Routine Abdominal Exam Present: diminished bowel sounds - Routine Extremities Exam Present: normal inspection Hem/Onc Consult Result - Labs CBC & Chem 7: 02/14/24 06:41 02/14/24 06:41 Labs: Short CBC 02/13/24 02/13/24 02/14/24 Range/Units 07:40 08:26 06:41 WBC TNP 38.3 H* Hgb TNP 10.6 L 9.7 L Hct TNP 39.8 L 35.6 L Plt Count TNP 682 H 605 H BMP 02/14/24 06:41 Sodium 142 Potassium 3.6 Chloride 107 Carbon Dioxide 27 BUN 8 L Creatinine 0.84 Calcium 8.7 D Liver Function 02/13/24 Range/Units 08:40 AST 32 (5-37) U/L ALT 11 (0-40) U/L Alkaline Phosphatase 110 (39-117) U/L Assessment and Plan Patient Active problem list reviewed?: Yes (1) Polycythemia vera Start date: 02/14/24 Status: Acute Assessment and plan: It would be prudent to keep his latelets under 500. This can be don with 1 mg on anagrelide daily. He should nbot receive iron therapy for the MCV of 56 as this regulates the red cells. He has no leukemia. I will follow daily. - Time Spent With Patient Time Spent with Patient (in minutes): 20
--- NOTE | 2024-02-14 11:29 | PM.CNCAR ---
History of Present Illness History of Present Illness Date of Service: 02/14/24 Chief complaint: SVT s/p cardioversion in the ED Narrative: This is a cardiology consultation regarding SVT. He was last seen in our clinic in 2019. At that time, based on documentation, moderate LAD stenosis but medically managed. He also had a history of daily alcohol use. However, he states that he has not had alcohol in many years now. Current admissions because of concern for SVT. He presented with heart pounding type sensations. Per H and P, there is also mention of chest pain but he denied that to me. He was apparently found to be hypotensive, hypoxic, tachycardic, received adenosine but no response. Then put on non-rebreather and then eventually cardioverted with 200 joules. Currently, he states he feels fine and back to his normal self. He has had a similar episode previously treated [facility] and thought to be SVT. He states that otherwise he does fine at home and does not have any complaints. No issues like angina or in fact anything cardiac sounding. Today, he is back to his normal self. Review of Systems Review of Systems: Yes all other systems are reviewed and are negative Constitutional: Constitutional: Reports as per HPI and Reports no additional constitutional complaints Eyes: Eyes: Reports as per HPI and Denies no additional eye complaints ENT: Denies system reviewed and no additional complaints, except as documented and Reports as per HPI Cardiovascular: Cardiovascular: Reports as per HPI, Reports no additional cardiovascular complaints, Denies acrocyanosis, Denies cool extremities, Denies chest pain, Denies leg edema, Denies lightheadedness, Reports palpitations and Denies dyspnea Respiratory: Respiratory: Reports as per HPI, Denies no additional respiratory complaints and Denies dyspnea Gastrointestinal: Gastrointestinal: Reports as per HPI and Denies no additional gastrointestinal complaints Genitourinary: Genitourinary: Reports no additional male genitourinary complaints and Reports as per HPI Musculoskeletal: Musculoskeletal: Reports no additional musculoskeletal complaints and Reports as per HPI Integumentary/Breasts: Skin/Breast: Reports system reviewed and no additional complaints, except as docu Neurologic: Reports system reviewed and no additional complaints, except as documented and Reports as per HPI Psychiatric: Psychiatric: Reports no additional psychiatric complaints and Reports as per HPI Endocrine: Endocrine: Reports no additional endocrine complaints, Reports as per HPI and Reports palpitations Hematologic/Lymphatic: Hematologic/Lymphatic: Reports no additional hematologic/lymphatic complaints and Reports as per HPI Allergic/Immunologic: Allergic/Immunologic: Reports no additional allergic/immunologic complaints and Reports as per HPI [facility] Past Medical History Medical History Polycythemia Fracture High cholesterol HTN (hypertension) Heart attack Family History Family History Daughter Aortic aneurysm Surgical History Surgical History S/P angiogram of extremity Hx of rotator cuff surgery H/O arthroscopy of shoulder Social History Social History Household Members: Family Housing: House Do you presently have visiting nurse or other home services: No Patient Tobacco Use Status: Current everyday Tobacco user Tobacco use type: Cigarette Cigarette Packs Per Day: 1 Second Hand Smoke Exposure: No service: No Meds Allergies Allergy/AdvReac Type Severity Reaction Status Date / Time No Known Allergies Allergy Verified 02/13/24 07:36 [No Known Allergies*] Active Medications: Current Medications Acetaminophen (Acetaminophen 325 Mg Tablet) 650 mg PO Q6H PRN PRN Reason: Pain, Mild (Pain Scale 1-3), fever or headache Albuterol/Ipratropium (Albuterol/Iprat 2.5/0.5mg 3 Ml Ampul.Neb) 3 ml INHALE RQ4H WHILE AWAKE [facility] Last Admin: 02/14/24 11:06 Dose: 3 ml Aspirin (Aspirin 81 Mg Tab.Chew) 81 mg PO DAILY [facility] Last Admin: 02/14/24 07:59 Dose: 81 mg Atorvastatin Calcium (Atorvastatin Calcium 20 Mg Tablet) 20 mg PO DAILY [facility] Last Admin: 02/14/24 07:59 Dose: 20 mg Benzonatate (Benzonatate 100 Mg Capsule) 200 mg PO TID PRN PRN Reason: Cough Last Admin: 02/14/24 05:58 Dose: 200 mg Calcium Carbonate (Calcium Carbonate 750 Mg Tab.Chew) 750 mg PO Q4H PRN PRN Reason: Heartburn Last Admin: 02/13/24 23:53 Dose: 750 mg Cilostazol (Cilostazol 50 Mg Tablet) 50 mg PO BID [facility] Last Admin: 02/14/24 07:59 Dose: 50 mg Clopidogrel Bisulfate (Clopidogrel Bisulfate 75 Mg Tablet) 75 mg PO DAILY [facility] Last Admin: 02/14/24 07:59 Dose: 75 mg Cyanocobalamin (Cyanocobalamin (Vitamin B-12) 100 Mcg Tablet) 50 mcg PO DAILY [facility] Last Admin: 02/14/24 08:00 Dose: Not Given Enoxaparin Sodium (Enoxaparin Sodium 40 Mg/0.4 Ml Syringe) 40 mg SUBCUT Q24H [facility] Last Admin: 02/13/24 16:26 Dose: 40 mg Fluticasone/Umeclidinium/Vilanterol (Fluticasone/Umeclidinium/Vilanterol 200/62.5/25 Blst.W.Dev) 1 puff INHALE RDAILY [facility] Last Admin: 02/14/24 07:23 Dose: Not Given Furosemide (Furosemide 40 Mg Tablet) 40 mg PO DAILY [facility]; Protocol Last Admin: 02/14/24 07:59 Dose: 40 mg Magnesium Hydroxide (Milk Of Magnesia 30 Ml Oral.Susp) 30 ml PO DAILY PRN PRN Reason: Constipation Melatonin (Melatonin 3 Mg Tablet) 6 mg PO BEDTIME PRN PRN Reason: Insomnia Metoprolol Succinate (Metoprolol Succinate Er 50 Mg Tab.Er.24h) 50 mg PO DAILY [facility]; Protocol Last Admin: 02/14/24 07:59 Dose: 50 mg Multivitamins/Vitamin C (Multivitamin Tablet) 1 tab PO DAILY [facility] Last Admin: 02/14/24 07:59 Dose: 1 tab Ondansetron HCl (Ondansetron Hcl 4 Mg/2 Ml Vial) 4 mg IVPUSH Q8H PRN PRN Reason: Nausea and Vomiting Sodium Chloride (0.9 % Sodium Chloride Flush 3 Ml Syringe) 3 ml IVFLUSH QSHIFT [facility] Last Admin: 02/14/24 07:59 Dose: 3 ml Home Medications ?Medication ?Instructions ?Recorded ?Confirmed ?Last Taken ?Type atorvastatin 20 mg tablet 20 mg PO DAILY 02/22/20 02/13/24 02/13/24 09:00 History cilostazol 50 mg tablet 50 mg PO BID 02/22/20 02/13/24 02/13/24 09:00 History clopidogrel 75 mg tablet 75 mg PO DAILY 02/22/20 02/13/24 02/13/24 09:00 History albuterol sulfate 2.5 mg/3 mL 2.5 mg inhalation TID 02/13/24 02/13/24 02/13/24 09:00 History (0.083 %) solution for nebulization aspirin 81 mg chewable tablet 81 mg PO DAILY 02/13/24 02/13/24 02/13/24 09:00 History cyanocobalamin (vitamin B-12) 50 50 mcg PO DAILY 02/13/24 02/13/24 02/13/24 09:00 History mcg tablet (Vitamin B-12) fluticasone fur. 200 mcg-umeclid 1 ea inhalation DAILY 02/13/24 02/13/24 02/13/24 09:00 History 62.5 mcg-vilant 25 mcg inhalat.powder (Trelegy Ellipta) furosemide 40 mg tablet 40 mg PO DAILY 02/13/24 02/13/24 02/13/24 09:00 History metoprolol succinate 50 mg 50 mg PO DAILY 02/13/24 02/13/24 02/13/24 09:00 History tablet,extended release 24 hr [id number] tablet 1 tab PO DAILY 02/13/24 02/13/24 02/13/24 09:00 History Physical Exam Vital Signs: Vital Signs: Last Vital Signs Temp 97.3 F 02/14/24 11:25 Pulse 101 H 02/14/24 11:25 Resp 22 H 02/14/24 11:25 BP 96/52 L 02/14/24 11:25 Pulse Ox 95 02/14/24 11:25 O2 Del Method Room Air 02/14/24 11:25 O2 Flow Rate 3 02/13/24 13:22 BMI result Body Mass Index 23.9 Const: General: comfortable and no acute distress Orientation/consciousness: patient oriented x3 HEENT: Other: Unremarkable Head: Yes normal to inspection Neck: Neck: Yes normal visual inspection Chest: Chest palpation & inspection: normal inspection of the chest Resp: Auscultation: clear to auscultation bilaterally Cardio: Palpation: normal PMI Heart sounds: S1 normal heart sound present, S2 normal heart sound present, no gallops, no murmurs and no rubs GI: Palpation (GI): Soft to palpation Back/Spine/Pelvis: Other: unremarkable Skin: General skin exam: no rashes or lesions noted Neuro: General: patient oriented x3 Extrem: General: Yes normal to inspection Psych: Mental Status: mental status grossly normal Objective Labs and Meds 02/14/24 06:41 02/14/24 06:41 Lab results: Laboratory Results - last 24 hr 02/13/24 02/13/24 02/13/24 12:12 13:55 16:57 WBC RBC Hgb Hct MCV MCH MCHC RDW Plt Count MPV Absolute Nucleated RBC Nucleated RBC % (auto) Sodium Potassium Chloride Carbon Dioxide Anion Gap BUN Creatinine Estim Creat Clear Calc Estimated GFR Random Glucose Lactic Acid F/U @ 2Hr 1.9 Calcium Troponin I High Sens 149.6 H* D 227.5 H* D 02/14/24 06:41 WBC 38.3 H* RBC 6.39 H Hgb 9.7 L Hct 35.6 L MCV 55.7 L MCH 15.2 L MCHC 27.2 L RDW 25.6 H Plt Count 605 H MPV Not Reportable Absolute Nucleated RBC 0.000 Nucleated RBC % (auto) 0.0 Sodium 142 Potassium 3.6 Chloride 107 Carbon Dioxide 27 Anion Gap 12 BUN 8 L Creatinine 0.84 Estim Creat Clear Calc 56.8 Estimated GFR > 60 Random Glucose 90 Lactic Acid F/U @ 2Hr Calcium 8.7 D Troponin I High Sens 181.9 H* ECG Interpretation: [facility] sinus tachycardia at 124/Min; old anteroseptal infarct; left anterior fascicular block. Similar to prior. On review of the tachycardia strips, difficult to say what it is. Somewhat regular and hence could be SVT versus atrial flutter. Assessment and Plan (1) Supraventricular tachycardia: Status: Acute (2) NSTEMI (non-ST elevated myocardial infarction): Status: Acute Plan Rhythm probable SVT versus atrial flutter versus fibrillation. Difficult to say. Currently, sinus. Troponin levels are 150, 227 and 181. Overall, known vascular disease, atrial arrhythmia, demand related troponin. Start amiodarone loading dose followed by maintenance. Therapeutic Lovenox for 48 hours. Home meds include aspirin, Plavix, metoprolol, statins and may continue that. Echocardiogram Friday. d/w . Procedures Date of Service Date of Service: 02/14/24
[2024-02-14 11:43] LABS: Iron 11 mcg/dL (45-160); Percent Iron Saturation 3 % (15-50); Total Iron Binding Capacity 352 mcg/dL (228-428); Unsaturated Iron Binding 341 ug/dL
[2024-02-14 12:05] LABS: Ferritin 10 ng/mL (20-250)
[2024-02-14] MEDS: Enoxaparin Sodium 80 MG/0.8 ML SYRINGE 70 MG SUBCUT ×2 (12:24→23:39)
[2024-02-14] MEDS: Amiodarone HCL 200 MG TABLET 400 MG PO ×2 (12:24→20:53)
[2024-02-14] MEDS: Iron Sucrose Complex 200 MG/10 ML VIAL IVPUSH (12:26)
[2024-02-15 04:00] VITALS: BP 103/60; PULSE 97; RESP 20; TEMP 36.5; O2SAT 93
[2024-02-15 06:34] LABS: B Type Natriuretic Peptide 281 pg/mL (<100)
[2024-02-15] MEDS: Albuterol/Iprat 2.5/0.5MG 3 ML AMPUL.NEB INHALE (07:31)
[2024-02-15] MEDS: Fluticasone/Umeclidinium/Vilanterol 200/62.5/25 BLST.W.DEV 1 PUFF INHALE (07:31)
[2024-02-15 07:33] VITALS: PULSE 95; RESP 18; O2SAT 90
[2024-02-15 08:00] VITALS: BP 100/62; PULSE 99; RESP 20; TEMP 36.8; O2SAT 93
[2024-02-15] MEDS: Amiodarone HCL 200 MG TABLET 400 MG PO (08:49)
[2024-02-15] MEDS: Metoprolol Succinate ER 50 MG TAB.ER.24H PO (08:49)
[2024-02-15] MEDS: Furosemide 40 MG TABLET PO (08:49)
[2024-02-15] MEDS: Atorvastatin Calcium 20 MG TABLET PO (08:49)
[2024-02-15] MEDS: Multivitamin TABLET 1 TAB PO (08:49)
[2024-02-15] MEDS: Cyanocobalamin (Vitamin B-12) 100 MCG TABLET 50 MCG PO (08:49)
[2024-02-15] MEDS: cilostazoL 50 MG TABLET PO (08:49)
[2024-02-15] MEDS: Clopidogrel Bisulfate 75 MG TABLET PO (08:50)
[2024-02-15] MEDS: 0.9 % Sodium Chloride Flush 3 ML SYRINGE IVFLUSH (08:50)
[2024-02-15] MEDS: Aspirin 81 MG TAB.CHEW PO (08:50)
--- NOTE | 2024-02-15 09:22 | P.DS_ITS ---
DS: Providers Provider Date of Service: 02/15/24 Date of admission: 02/13/24 13:29 Date of discharge: 02/15/24 Primary care physician: Unknown Physician Consults: 02/13/24 13:25 Consult to Cardiology Routine Consulting Provider: [facility] Reason for consultation: SVT s/p cardioversion in the ED 02/13/24 13:55 Consult to Hematology / Oncology Routine Consulting Provider: [facility] Reason for consultation: Abnormal cbc, ?leukemia DS: Diagnosis Discharge Diagnosis (1) Polycythemia vera: Status: Acute DS: Summary Hospital Course Hospital Course: from initial hpi: 88-year-old male with a PMH significant for COPD, subclavian stenosis s/p stenting, HTN, CAD w/ hx of NSTEMI in 12/2016, s/p cardiac catheterization w/o stenting, and current smoker who presents to the ED from home with chest pain, left arm pain, SOB, and palpitations since waking up this morning around 04:00. When EMS arrived they found pt to be hypotensive in the 80s, hypoxic in the 80s on RA, and tachycardic in the 170s. Pt did not respond to adenosine 6mg and 12mg IV doses. Was placed on a non-rebreather and brought to the hospital where he again did not respond to adenosine 12mg IV push. The patient was then cardioverted in the ED with biphasic defibrillator at 200 joules. Patient seen and evaluated in the ED were currently he has no acute medical complaints and just wants to go home. Currently denies chest pain/pressure, palpitations. No shortness a breath or difficulty breathing. Denies any recent weight loss or increased fatigue. Denies increasing lower leg edema. No PND. Denies orthopnea. Patient is overall a poor historian and unaware his PMH. Review of records from [facility] indicate patient was admitted to the hospital with similar complaints on 03/19/2022. Patient was noted at that time to be in SVT in the 190s. Vagal maneuvers did not work and patient was given 3 doses of adenosine which eventually decreased heart rate. Initial troponin was 23 with repeat with delta 56. Was initially placed on a heparin drip x48 which was stopped. Pt declined cardiac catheterization at that time. Previous cardiac catheterization in 1 03/15/2016 showed moderate disease of the mid to distal LAD with other vessel significantly calcified with mild luminal irregularities. No stenting was done at that time. In the ED pt was initially tachycardic at 177 and tachypneic up to 30 with soft BP as low as 68/50. Labs were significant for leukocytosis of 34.5, bandemia of 9, abnormal blood smear, creatinine 1.19 (baseline around 0.80), lactic acid 3.2, initial troponin 8.4 with repeat pending, and mildly elevated BNP of 160. VBG consistent with respiratory acidosis of pH 7.26, pCO2 65, and bicarb 29. UA negative for UTI. Tested negative for flu, RSV, COVID. CXR showed no radiographic evidence of acute cardiopulmonary findings. EKG demonstrated sinus tachycardia of 124 with PVCs. Pt was treated with adenosine 12 mg IV, fentanyl 50 mcg IV, and ketamine 100 mg IV. Pt will be admitted to the hospital for for treatment further evaluation of symptomatic and sustained SVT nonresponsive to chemical therapies and requiring cardioversion in the ED. hospital course: Patient was admitted for acute hypoxic and hypercapnic respiratory failure and cardiogenic shock due to unstable narrow complex tachycardia, he underwent emergent cardioversion in ED and then remained in normal sinus rhythm. He was seen by Cardiology and unclear if this was SVT or AFib with RVR. Echo was unremarkable, was started on amiodarone 400 mg b.i.d. for 2 weeks and then will decrease to 200 mg daily, recommended starting eliquis and stopping DAPL. Was noted to have likely demand ischemia, type 2 NSTEMI and treated but empirically treated with 48 hours of subcu Lovenox, noted to have leukocytosis and thrombocytosis which is chronic was seen by Hematology who noted patient has been followed previously for JAK2 positive myeloproliferative disorder. Patient noted to have acute lactic acidosis due to cardiogenic shock not sepsis. For coronary disease was continued on dual antiplatelet (but will be stopped on discharge) and statin, for chronic iron deficiency received IV iron infusion. Patient is feeling better will be discharged home. Time Attestation Discharge Coordination Time (in mins): 32 Quality: Safe Use of Opioids Does Pt have an Active Cancer Diagnosis on the Problem List?: No Quality: Stroke Does the patient have a stroke diagnosis?: No Physical Exam Vital Signs: Vital Signs: Last Vital Signs Temp 98.3 F 02/15/24 08:00 Pulse 99 02/15/24 08:00 Resp 20 02/15/24 08:00 BP 100/62 02/15/24 08:00 Pulse Ox 93 02/15/24 08:00 O2 Del Method Room Air 02/15/24 08:00 O2 Flow Rate 3 02/13/24 13:22 BMI result Body Mass Index 23.9 General: AO X 3, no acute distress Resp: CTA bilateral, no accessory muscles used CVS: S1,S2,RRR GI: soft, non tender, non distended Neuro: motor grossly intact, alert Psych: appropriate affect, appropriate insight DS: Data Data Completed and Pending Labs on day of discharge: Laboratory Results - last 24 hr 02/14/24 02/15/24 06:41 05:43 Iron 11 L TIBC 352 % Saturation 3 L Unsat Iron Binding 341 Ferritin 10 L B-Natriuretic Peptide 281 H Preliminary micro results at discharge 02/13/24 07:42 Blood Culture - Preliminary Blood - Venous No growth after 24 hours. 02/13/24 07:42 Blood Culture - Preliminary Blood - Venous No growth after 24 hours. Discharge Plan Discharge Anticipated Discharge Date/Time: 02/15/24 09:16 Patient Disposition: Home, Self-Care Discharge Diagnosis: svt vs afib Referrals: Physician,Unknown J [Primary Care Provider] - 1 Week Discharge Medications: New amiodarone 200 mg Tablet 400 mg PO BID Qty: 96 0RF Rx Instructions: 400mg bid for 2 weeks, then decrease to 200mg daily apixaban 5 mg tablet 5 mg PO BID Qty: 180 0RF Continued furosemide 40 mg tablet 40 mg PO DAILY albuterol sulfate 2.5 mg /3 mL (0.083 %) solution for nebulization 2.5 mg inhalation TID metoprolol succinate 50 mg tablet extended release 24 hr 50 mg PO DAILY Trelegy Ellipta 200-62.5-25 mcg blister with device 1 ea INHALATION DAILY Vitamin B-12 50 mcg Tablet 50 mcg PO DAILY xguymjyibrmu-srehqchc-fsxqlj Tablet 1 tab PO DAILY atorvastatin 20 mg tablet 20 mg PO DAILY cilostazol 50 mg tablet 50 mg PO BID Discontinued aspirin 81 mg Tablet,Chewable 81 mg PO DAILY clopidogrel 75 mg tablet 75 mg PO DAILY Discharge Orders: Discharge Order (Routine); Ordered 02/15/24 Ordered By: Fan Johnston Diet: Advance to usual diet Activity on Discharge: As tolerated Stand Alone Forms: Patient Portal Discharge page Print Language: Greek Care Plan Goals: recovery Health Concerns: narrow complex tachycardia Plan of Treatment: amiodarone 400mg bid for 13 more days then decrease to 200mg daily, follow up with cardiology Assessment: see above
--- NOTE | 2024-02-15 09:53 | MHC.CM.PN ---
Patient has been medically cleared for dc to home today, self care.
--- NOTE | 2024-02-15 10:00 | PM.PNCARD ---
Subjective Subjective Date of Service: 02/15/24 Interval history: He states he feels fine. He wants to go home. No cardiac complaints at this time. Has been stable overnight. Review of Systems Review of Systems Yes all other systems are reviewed and are negative Constitutional: Reports as per HPI and Reports no additional constitutional complaints Eyes: Reports as per HPI and Denies no additional eye complaints Denies system reviewed and no additional complaints, except as documented and Reports as per HPI Cardiovascular: Reports as per HPI, Reports no additional cardiovascular complaints, Denies acrocyanosis, Denies cool extremities, Denies chest pain, Denies leg edema, Denies lightheadedness, Denies palpitations and Denies dyspnea Respiratory: Reports as per HPI, Denies no additional respiratory complaints and Denies dyspnea Gastrointestinal: Reports as per HPI and Denies no additional gastrointestinal complaints Genitourinary: Reports no additional male genitourinary complaints and Reports as per HPI Musculoskeletal: Reports no additional musculoskeletal complaints and Reports as per HPI Skin/Breast: Reports system reviewed and no additional complaints, except as docu Reports system reviewed and no additional complaints, except as documented and Reports as per HPI Psychiatric: Reports no additional psychiatric complaints and Reports as per HPI Endocrine: Reports no additional endocrine complaints, Reports as per HPI and Denies palpitations Hematologic/Lymphatic: Reports no additional hematologic/lymphatic complaints and Reports as per HPI Allergic/Immunologic: Reports no additional allergic/immunologic complaints and Reports as per HPI Physical Exam Vital Signs: Last Vital Signs Temp 98.3 F 02/15/24 08:00 Pulse 99 02/15/24 08:00 Resp 20 02/15/24 08:00 BP 100/62 02/15/24 08:00 Pulse Ox 93 02/15/24 08:00 O2 Del Method Room Air 02/15/24 08:00 O2 Flow Rate 3 02/13/24 13:22 BMI result Body Mass Index 23.9 Const General: comfortable and no acute distress Orientation/consciousness: patient oriented x3 HEENT Other: Unremarkable Head: Yes normal to inspection Neck Neck: Yes normal visual inspection Chest Chest palpation & inspection: normal inspection of the chest Resp Other: rhonchi Cardio Palpation: normal PMI Heart sounds: S1 normal heart sound present, S2 normal heart sound present, no gallops, no murmurs and no rubs GI Palpation (GI): Soft to palpation Back/Spine/Pelvis Other: unremarkable Skin General skin exam: no rashes or lesions noted Neuro General: patient oriented x3 Extrem General: Yes normal to inspection Psych Mental Status: mental status grossly normal Objective Labs and Meds 02/14/24 06:41 02/14/24 06:41 Lab results: Laboratory Results - last 24 hr 02/14/24 02/15/24 06:41 05:43 Iron 11 L TIBC 352 % Saturation 3 L Unsat Iron Binding 341 Ferritin 10 L B-Natriuretic Peptide 281 H Progress Note: A&P Assessment and plan (1) Supraventricular tachycardia: Status: Acute (2) NSTEMI (non-ST elevated myocardial infarction): Status: Acute Plan Rhythm probable SVT versus atrial flutter versus fibrillation. Did not respont to adenosine. s/p cardioversion in ER. Difficult to confirm rhythm. Currently, sinus. Troponin levels are 150, 227 and 181. In the echocardiogram, LVEF 60-65%. No significant valve findings. Ascending aortic size 4.1 cm. Overall, known vascular disease, atrial arrhythmia, demand related troponin. Due to unstable arrhythmia requiring cardioversion, recommend Amiodarone loading dose followed by maintenance. As it did not respond to adenosine, could be atrial flutter versus fibrillation. Hence for this reason start anticoagulation. He did receive therapeutic Lovenox as an inpatient. Otherwise, stop aspirin and Plavix and just keep Eliquis only to avoid any bleeding issues- but check with Hematology if Aspirin needed for the polycythemia or if Eliquis adequate. Continue beta-blockers and statins. We will arrange outpatient follow-up. d/w . Time Spent With Patient Time: Total time managing care of this patient today ____ minutes. Progress Note: Quality Stroke Does the patient have a stroke diagnosis?: No Procedures Date of Service Date of Service: 02/15/24
[2024-02-15] MEDS: Enoxaparin Sodium 100 MG/ML SYRINGE SUBCUT (11:29)
--- NOTE | 2024-02-15 11:45 | P.PNHO-ONC_ITS ---
Medical Summary - Medical Summary Date of Service: 02/15/24 Chief complaint: polycythemia vera Primary Care Provider: Unknown Physician Interval History Interval history: Wyatt Shelton is a 88 year old male well known to me diagnosed in 2019 with polycythemia vera and vitamin B12 deficiency in 2013 when his level was 213. His anti inrinsic factor antibody was negative and his level normalized with oral B12. It was not pernicious anemia. He presents now with leucocytosis and thrombocytosis. 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 In 2019 his hematocrit was 62.5 and he underwent regular therapeutic phlebotomy until his ferritin was 16 which controlled the red cell population.. His platelet count was elevated 04-03-2023 but he did not return for treatment. It is now 605.He has been very noncompliant with office visits. He should be treated with anagrelide 1.0 mg po daily for the platelets. No other acute treatmnent is needed today He is being readied for discharge today. The platelets are 605. I will see him in follow up in my office next week. He will llikely need anagrelide to keep the platelets in normal range. Cardiology had recommended anticoagulation for flutter and will stop the asa and clopidogrel. Review of Systems - Constitutional Reports malaise - Eyes Reports other - Cardiovascular Reports rapid, pounding, or irregular heartbeat - Respiratory Reports cough, Reports wheezing - Gastrointestinal Reports constipation - Genitourinary Genitourinary: Reports urinary frequency - Neurologic Reports system reviewed and no additional complaints, except as documented, Reports memory loss, Reports weakness [facility] Medical History: Medical History (Last Reviewed 02/13/24 @ 15:46 by Cheryl Singleton RN) Fracture Heart attack High cholesterol HTN (hypertension) Polycythemia Family History: Family History (Last Reviewed 02/13/24 @ 14:19 by CINDY Bauer) Daughter Aortic aneurysm Surgical History: Surgical History (Last Reviewed 02/13/24 @ 15:46 by Cheryl Singleton RN) H/O arthroscopy of shoulder Hx of rotator cuff surgery S/P angiogram of extremity Social History: Social History (Last Reviewed 02/13/24 @ 14:19 by CINDY Bauer) Living Situation History: Household Members: Family Housing: House Do you presently have visiting nurse or other home services: No Tobacco History: Patient Tobacco Use Status: Current everyday Tobacco Tobacco use type: Cigarette Cigarette Packs Per Day: 1 Second Hand Smoke Exposure: No Occupation Assessmet: service: No Home Medications and Allergies Current Medications: Current Medications Acetaminophen (Acetaminophen 325 Mg Tablet) 650 mg PO Q6H PRN PRN Reason: Pain, Mild (Pain Scale 1-3), fever or headache Albuterol/Ipratropium (Albuterol/Iprat 2.5/0.5mg 3 Ml Ampul.Neb) 3 ml INHALE RQ4H WHILE AWAKE [facility] Last Admin: 02/15/24 07:31 Dose: 3 ml Amiodarone HCl (Amiodarone Hcl 200 Mg Tablet) 400 mg PO BID [facility] Last Admin: 02/15/24 08:49 Dose: 400 mg Aspirin (Aspirin 81 Mg Tab.Chew) 81 mg PO DAILY [facility] Last Admin: 02/15/24 08:50 Dose: 81 mg Atorvastatin Calcium (Atorvastatin Calcium 20 Mg Tablet) 20 mg PO DAILY [facility] Last Admin: 02/15/24 08:49 Dose: 20 mg Benzonatate (Benzonatate 100 Mg Capsule) 200 mg PO TID PRN PRN Reason: Cough Last Admin: 02/14/24 05:58 Dose: 200 mg Calcium Carbonate (Calcium Carbonate 750 Mg Tab.Chew) 750 mg PO Q4H PRN PRN Reason: Heartburn Last Admin: 02/13/24 23:53 Dose: 750 mg Cilostazol (Cilostazol 50 Mg Tablet) 50 mg PO BID [facility] Last Admin: 02/15/24 08:49 Dose: 50 mg Clopidogrel Bisulfate (Clopidogrel Bisulfate 75 Mg Tablet) 75 mg PO DAILY [facility] Last Admin: 02/15/24 08:50 Dose: 75 mg Cyanocobalamin (Cyanocobalamin (Vitamin B-12) 100 Mcg Tablet) 50 mcg PO DAILY [facility] Last Admin: 02/15/24 08:49 Dose: 50 mcg Enoxaparin Sodium (Enoxaparin Sodium 100 Mg/Ml Syringe) 100 mg SUBCUT ONCE ONE Stop: 02/15/24 12:13 Last Admin: 02/15/24 11:29 Dose: 100 mg Fluticasone/Umeclidinium/Vilanterol (Fluticasone/Umeclidinium/Vilanterol 200/62.5/25 Blst.W.Dev) 1 puff INHALE RDAILY [facility] Last Admin: 02/15/24 07:31 Dose: 1 puff Furosemide (Furosemide 40 Mg Tablet) 40 mg PO DAILY [facility]; Protocol Last Admin: 02/15/24 08:49 Dose: 40 mg Magnesium Hydroxide (Milk Of Magnesia 30 Ml Oral.Susp) 30 ml PO DAILY PRN PRN Reason: Constipation Melatonin (Melatonin 3 Mg Tablet) 6 mg PO BEDTIME PRN PRN Reason: Insomnia Metoprolol Succinate (Metoprolol Succinate Er 50 Mg Tab.Er.24h) 50 mg PO DAILY [facility]; Protocol Last Admin: 02/15/24 08:49 Dose: 50 mg Multivitamins/Vitamin C (Multivitamin Tablet) 1 tab PO DAILY [facility] Last Admin: 02/15/24 08:49 Dose: 1 tab Ondansetron HCl (Ondansetron Hcl 4 Mg/2 Ml Vial) 4 mg IVPUSH Q8H PRN PRN Reason: Nausea and Vomiting Sodium Chloride (0.9 % Sodium Chloride Flush 3 Ml Syringe) 3 ml IVFLUSH QSHIFT [facility] Last Admin: 02/15/24 08:50 Dose: 3 ml Home Medications ?Medication ?Instructions ?Recorded ?Confirmed ?Type atorvastatin 20 mg tablet 20 mg PO DAILY 02/22/20 02/13/24 History cilostazol 50 mg tablet 50 mg PO BID 02/22/20 02/13/24 History albuterol sulfate 2.5 mg/3 mL 2.5 mg inhalation TID 02/13/24 02/13/24 History (0.083 %) solution for nebulization cyanocobalamin (vitamin B-12) 50 50 mcg PO DAILY 02/13/24 02/13/24 History mcg tablet (Vitamin B-12) fluticasone fur. 200 mcg-umeclid 1 ea inhalation DAILY 02/13/24 02/13/24 History 62.5 mcg-vilant 25 mcg inhalat.powder (Trelegy Ellipta) furosemide 40 mg tablet 40 mg PO DAILY 02/13/24 02/13/24 History metoprolol succinate 50 mg 50 mg PO DAILY 02/13/24 02/13/24 History tablet,extended release 24 hr tivkayqgwhwr-bggonfeo-ukadeb tablet 1 tab PO DAILY 02/13/24 02/13/24 History Allergies Allergy/AdvReac Type Severity Reaction Status Date / Time No Known Allergies Allergy Verified 02/13/24 07:36 [No Known Allergies*] Exam Vital signs: Vital Signs Temp 98.3 F 02/15/24 08:00 Pulse 99 02/15/24 08:00 Resp 20 02/15/24 08:00 BP 100/62 02/15/24 08:00 Pulse Ox 93 02/15/24 08:00 O2 Del Method Room Air 02/15/24 08:00 O2 Flow Rate 3 02/13/24 13:22 Intake & Output 02/14/24 02/15/24 02/15/24 18:59 06:59 18:59 Intake Total 600 / 850 250 / 850 240 / 240 Output Total 425 / 725 300 / 725 150 / 150 Balance 175 / 125 -50 / 125 90 / 90 Urine Output (Average ml/kg/hr) 0.51 0.36 0.18 Intake: Intake, Oral Amount 600 / 850 250 / 850 240 / 240 Output: Output, Urine Amount 425 / 725 300 / 725 150 / 150 Output, Stool Amount 0 / 0 Other: Breakfast % Eaten 50% 100% Lunch % Eaten 75% Number of Bowel Movements 1 Urine Urinal Urine Color Yellow Last Bowel Movement 02/14/24 02/14/24 Stool Bathroom Stool Amount Large Stool Color Brown Stool Consistency Semi Formed Weight 69.1 kg BMI result Body Mass Index 23.9 - Constitutional Present: no acute distress - Routine HEENT Exam Head: Present: atraumatic - Routine Neck Exam Present: full ROM - Routine Respiratory Exam Present: decreased breath sounds, rhonchi - Routine Cardiovascular Exam Cardiovascular: Present: RRR - Routine Abdominal Exam Present: diminished bowel sounds - Routine Extremities Exam Present: normal inspection Data - Labs CBC & Chem 7: 02/14/24 06:41 02/14/24 06:41 Labs: Laboratory Last Values WBC 38.3 X10*3/uL (4.8-10.8) H* 02/14/24 06:41 RBC 6.39 X10*6/uL (4.60-5.80) H 02/14/24 06:41 Hgb 9.7 g/dl (14.0-18.0) L 02/14/24 06:41 Hct 35.6 % (42.0-52.0) L 02/14/24 06:41 MCV 55.7 fL (80.0-98.0) L 02/14/24 06:41 MCH 15.2 pg (27.0-33.0) L 02/14/24 06:41 MCHC 27.2 g/dl (31.0-36.0) L 02/14/24 06:41 RDW 25.6 % (11.0-16.0) H 02/14/24 06:41 Plt Count 605 X10*3/uL (160-400) H 02/14/24 06:41 MPV Not Reportable 02/14/24 06:41 Immature Gran % (Auto) Cancelled 02/13/24 08:26 Neut % (Auto) Cancelled 02/13/24 08:26 Lymph % (Auto) Cancelled 02/13/24 08:26 [place] % (Auto) Cancelled 02/13/24 08:26 Eos % (Auto) Cancelled 02/13/24 08:26 Baso % (Auto) Cancelled 02/13/24 08:26 Lymph # (Auto) Cancelled 02/13/24 08:26 [place] # (Auto) Cancelled 02/13/24 08:26 Eos # (Auto) Cancelled 02/13/24 08:26 Baso # (Auto) Cancelled 02/13/24 08:26 Abs Immat Gran (auto) Cancelled 02/13/24 08:26 Absolute Neuts (auto) Cancelled 02/13/24 08:26 Absolute Nucleated RBC 0.000 X10*3/uL (0.0-0.012) 02/14/24 06:41 Nucleated RBC % (auto) 0.0 /100WBC (0.0-0.2) 02/14/24 06:41 Neutrophils % (Manual) 73 % (45-73) 02/13/24 08:26 Band Neutrophils % 9 % (3-5) H 02/13/24 08:26 Lymphocytes % (Manual) 1 % (20-40) L 02/13/24 08:26 Atypical Lymphs % (Man) 2 % (0-6) 02/13/24 08:26 Monocytes % (Manual) 1 % (2-11) L 02/13/24 08:26 Eosinophils % (Manual) 12 % (0-4) H 02/13/24 08:26 Basophils % (Manual) 2 % (0-2) 02/13/24 08:26 Abs Neuts (Manual) 28.3 X10*3/uL (2.0-8.3) H 02/13/24 08:26 Lymphocytes # (Manual) 0.3 X10*3/uL (1.2-4.9) L 02/13/24 08:26 Atyp Lymphs # (Manual) 0.7 x10*3/uL 02/13/24 08:26 Monocytes # (Manual) 0.3 X10*3/uL (0.1-1.2) 02/13/24 08:26 Eosinophils # (Manual) 4.1 X10*3/uL (0.0-0.4) H 02/13/24 08:26 Basophils # (Manual) 0.7 X10*3/uL (0.0-0.2) H 02/13/24 08:26 Platelet Estimate INCREASED (NORMAL) 02/13/24 08:26 Large Platelets PRESENT 02/13/24 08:26 Giant Platelets PRESENT 02/13/24 08:26 Plt Morphology Comment NOTED 02/13/24 08:26 RBC Morphology NOTED 02/13/24 08:26 Polychromasia 2+ (3-5) /OIF 02/13/24 08:26 Hypochromasia 1+ (5-14) /OIF 02/13/24 08:26 Microcytosis 3+ (>30) /OIF 02/13/24 08:26 Target Cells 1+ (5-14) /OIF 02/13/24 08:26 Tear Drop Cells 2+ (3-5) /OIF 02/13/24 08:26 Ovalocytes 2+ (15-30) /OIF 02/13/24 08:26 [place] Cells 1+ (0-2) /OIF 02/13/24 08:26 Acanthocytes (Spur) 2+ (3-5) /OIF 02/13/24 08:26 Schistocytes 2+ (3-5) /OIF 02/13/24 08:26 Smear Tech's Comments TNP 02/13/24 07:40 PT 14.8 SEC (10.9-12.4) H 02/13/24 07:40 INR 1.3 (0.9-1.1) H 02/13/24 07:40 APTT 32.5 SEC (26.0-36.8) 02/13/24 07:40 VBG pH 7.26 (7.32-7.43) L 02/13/24 10:19 VBG pCO2 65 mmHg 02/13/24 10:19 VBG pO2 52 mmHg 02/13/24 10:19 VBG HCO3 29 mmol/L (22-26) H 02/13/24 10:19 VBG O2 Saturation 75.0 % 02/13/24 10:19 VBG Base Excess 1.2 mmol/L 02/13/24 10:19 Sodium 142 mmol/L (135-145) 02/14/24 06:41 Potassium 3.6 mmol/L (3.3-5.1) 02/14/24 06:41 Chloride 107 mmol/L (96-108) 02/14/24 06:41 Carbon Dioxide 27 mmol/L (22-29) 02/14/24 06:41 Anion Gap 12 (-) 02/14/24 06:41 BUN 8 mg/dL (9-16) L 02/14/24 06:41 Creatinine 0.84 mg/dL (0.5-1.4) 02/14/24 06:41 Estim Creat Clear Calc 56.8 02/14/24 06:41 Estimated GFR > 60 02/14/24 06:41 POC Glucose 176 mg/dL (60-115) H 02/13/24 07:34 Random Glucose 90 mg/dL (60-115) 02/14/24 06:41 Lactic Acid 3.2 mmol/L (0.5-2.0) H* 02/13/24 10:13 Lactic Acid F/U @ 2Hr 1.9 mmol/L (0.5-2.0) 02/13/24 13:55 Calcium 8.7 mg/dL (8.4-10.2) D 02/14/24 06:41 Magnesium 2.2 mg/dL (1.6-2.6) 02/13/24 08:40 Iron 11 mcg/dL (45-160) L 02/14/24 06:41 TIBC 352 mcg/dL (228-428) 02/14/24 06:41 % Saturation 3 % (15-50) L 02/14/24 06:41 Unsat Iron Binding 341 ug/dL 02/14/24 06:41 Ferritin 10 ng/mL (20-250) L 02/14/24 06:41 Total Bilirubin 0.9 mg/dL (0.0-1.0) 02/13/24 08:40 AST 32 U/L (5-37) 02/13/24 08:40 ALT 11 U/L (0-40) 02/13/24 08:40 Alkaline Phosphatase 110 U/L (39-117) 02/13/24 08:40 Troponin I High Sens 181.9 ng/L (<3.5-35.0) H* 02/14/24 06:41 B-Natriuretic Peptide 281 pg/mL (<100) H 02/15/24 05:43 Total Protein 7.3 g/dL (6.5-8.0) 02/13/24 08:40 Albumin 4.2 g/dL (3.5-5.0) 02/13/24 08:40 Lipase TNP 02/13/24 07:40 Urine Color Yellow 02/13/24 08:40 Urine Appearance Clear 02/13/24 08:40 Urine pH 6.5 (5.0-9.0) 02/13/24 08:40 Ur Specific [place] 1.010 (1.005-1.025) 02/13/24 08:40 Urine Protein Negative mg/dL (Neg-Trace) 02/13/24 08:40 Urine Glucose (UA) Negative mg/dL (Negative) 02/13/24 08:40 Urine Ketones Negative mg/dL (Negative) 02/13/24 08:40 Urine Blood Negative (Negative) 02/13/24 08:40 Urine Nitrite Negative (Negative) 02/13/24 08:40 Ur Leukocyte Esterase Negative (Negative) 02/13/24 08:40 Influenza Type A (PCR) NEGATIVE (Negative) 02/13/24 07:47 Influenza Type B (PCR) NEGATIVE (Negative) 02/13/24 07:47 RSV RNA Qual (PCR) NEGATIVE (Negative) 02/13/24 07:47 SARS-CoV-2 RNA (RT-PCR) NEGATIVE (Negative) 02/13/24 07:47 Blood Type A Positive 02/13/24 08:26 Antibody Screen NEGATIVE 02/13/24 08:26 - Imaging Radiologist's impression: ITS Impressions Chest X-Ray 02/13/24 07:35 IMPRESSION: No radiographic evidence of acute cardiopulmonary findings.. Electronically signed by: Cristiano Givens MD 02/13/2024 08:59 AM EST Assessment and Plan Patient Active problem list reviewed?: Yes (1) Polycythemia vera Start date: 02/14/24 Status: Acute Assessment and plan: It would be prudent to keep his platelets under 500. I brando see him as anoutpatient in the near future hopefully next week.l - Time Spent With Patient Time Spent with Patient (in minutes): 15
== END 2024-02-15 12:42 | disposition home or self-care (01) | DRG 280 ==
LOC: HO.ED 12:46 → HO.EDOVER 13:30 → HO.IMC 14:21
PROVIDERS: Admitting Provider Student in an Organized Health Care Education/Training Program; Emergency Provider Emergency Medicine Emergency Medical Services; Visit Provider Internal Medicine
DX: I47.10 Supraventricular tachycardia, unspecified (principal); J96.01 Acute respiratory failure with hypoxia; I21.A1 Myocardial infarction type 2; J96.02 Acute respiratory failure with hypercapnia; R57.0 Cardiogenic shock; D50.9 Iron deficiency anemia, unspecified; E78.5 Hyperlipidemia, unspecified; D75.1 Secondary polycythemia; I25.10 Atherosclerotic heart disease of native coronary artery without angina pectoris; D75.839 Thrombocytosis, unspecified; Z20.822 Contact with and (suspected) exposure to COVID-19; Z79.899 Other long term (current) drug therapy
CPT/HCPCS: 0241U; 36415; 71045; 80048; 80053; 81003; 82728; 82803; 82947; 83540; 83605; 83690; 83735; 83880; 84484; 85007; 85025; 85027; 85610; 85730; 86850; 86900; 86901; 87040; 93005; 93306; 94640; 99285; J0153; J1650; J1756; J3010; J7120

== ENCOUNTER → 2024-02-13 13:29 | Outpatient (BNV) | payer MEDICARE, SELFPAY | PROVIDERS: Admitting Provider Student in an Organized Health Care Education/Training Program; Emergency Provider Emergency Medicine Emergency Medical Services; Visit Provider Internal Medicine | DX: I47.10 Supraventricular tachycardia, unspecified (principal); I21.4 Non-ST elevation (NSTEMI) myocardial infarction | CPT/HCPCS: 93010; 93306; 99223; 99233 ==

== ENCOUNTER → 2024-02-13 13:29 | Outpatient (BNV) | payer MEDICARE, SELFPAY | PROVIDERS: Admitting Provider Student in an Organized Health Care Education/Training Program; Emergency Provider Emergency Medicine Emergency Medical Services; Visit Provider Student in an Organized Health Care Education/Training Program | DX: D45 Polycythemia vera (principal) | CPT/HCPCS: 99239 ==

== ENCOUNTER 2024-03-29 10:14 | Inpatient (IN) | payer MEDICARE, OTHER, SELFPAY ==
[2024-03-29] VITALS (9 sets, daily range): BP systolic 95–132; BP diastolic 52–75; PULSE 80–89; RESP 16–22; TEMP 36.2–37.1; O2SAT 92–100; BMI 23.0; BMI 22.3
--- NOTE | 2024-03-29 | ECG_ITS ---
Test Reason : CP Blood Pressure : */* mmHG Vent. 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
--- NOTE | ~2024-03-29 | XR_ITS ---
EXAMINATION: XR KNEE, LEFT CLINICAL INFORMATION: knee pain and swelling COMPARISON: 10/21/2018. TECHNIQUE: Two views of the left knee. FINDINGS: There is mild osteopenia. There is no definite fracture, dislocation, or suspicious bone lesion. There is no malalignment. There is mild to moderate medial compartment and patellofemoral compartment joint space narrowing. There is spurring of the tibial spines. There is a probable small suprapatellar joint effusion although knee is in flexion, limiting evaluation. Soft tissues demonstrate vascular calcifications but are otherwise normal. XR/XR knee LT 2V IMPRESSION: 1. No acute findings left knee. Arthritic changes most significant medial compartment. 2. Probable small joint effusion. 3. Extensive vascular calcification. Electronically signed by: Og Mcdonnell MD 03/29/2024 04:28 PM [facility]
--- NOTE | ~2024-03-29 | US_ITS ---
EXAMINATION: US LOWER EXTREMITY VEINS LIMITED FOLLOW UP LEFT HISTORY: left leg pain and swelling COMPARISON: There are no prior studies for comparison. TECHNIQUE: Duplex and color Doppler sonographic examination of the deep venous system of the left lower extremity was performed. FINDINGS: The common femoral, superficial femoral, and popliteal veins are patent demonstrating normal compressibility, spontaneous flow, and augmentation. There is a normal color and spectral Doppler waveform appearance of the visualized deep venous system above the knee. The posterior tibial and peroneal veins are patent. US/US venous duplex LE LT IMPRESSION: No evidence of acute DVT in the left lower extremity. Electronically signed by: Aris Gonzalez MD 03/29/2024 02:09 PM [facility]
--- NOTE | ~2024-03-29 | XR_ITS ---
EXAMINATION: XR CHEST CLINICAL INFORMATION: sob COMPARISON: February 13, 2024 TECHNIQUE: 2 views of the chest were obtained. FINDINGS: Hyperinflated lungs. Pulmonary reticular nodular pattern. Bilateral apical lung scarring. No consolidation, pleural effusion or pneumothorax. Cardiomediastinal silhouette demonstrates a tortuosity calcified aorta. Vascular clips at the diaphragmatic level posterior and beneath the heart silhouette. Multilevel thoracic spondylosis. Old traumatic deformities of the ribs of the right upper hemithorax. XR/XR chest 2V IMPRESSION: Chronic interstitial lung disease without an acute airspace disease. Electronically signed by: Kj Rivera MD 03/29/2024 11:22 AM [facility]
[2024-03-29 11:09] LABS: Hemoglobin 11.1 g/dl (14.0-18.0); PLT CLUMP 1
[2024-03-29 11:10] LABS: VBG Base Excess 5.6 mmol/L; VBG HCO3 31 mmol/L (22-26); VBG pCO2 49 mmHg; VBG pO2 43 mmHg
[2024-03-29 11:11] LABS: Venous Blood Gas Refer to POC result
[2024-03-29 11:14] LABS: INTERNATIONAL NORM RATIO 1.2 (0.9-1.1); Prothrombin Time 14.1 SEC (10.9-12.4)
[2024-03-29 11:16] LABS: Hematocrit 38.7 % (42.0-52.0); Mean Corpuscular HGB Conc 28.7 g/dl (31.0-36.0); Mean Corpuscular Hemoglobin 16.5 pg (27.0-33.0); Red Blood Count 6.74 X10*6/uL (4.60-5.80); Red Cell Distribution Width 28.3 % (11.0-16.0)
[2024-03-29 11:17] LABS: Partial Thromboplastin Time 26.9 SEC (26.0-36.8)
[2024-03-29 11:24] LABS: Mean Corpuscular Volume 57.4 fL (80.0-98.0); PLT ABN DIST 1; White Blood Count 30.2 X10*3/uL (4.8-10.8)
[2024-03-29 11:39] LABS: Platelet Count 251 X10*3/uL (160-400)
[2024-03-29 11:41] LABS: Alanine Aminotransferase 12 U/L (0-40); Alkaline Phosphatase 101 U/L (39-117); Anion Gap 12 (12-20); Aspartate Amino Transferase 34 U/L (5-37); Bilirubin Total 0.7 mg/dL (0.0-1.0); Blood Urea Nitrogen 12 mg/dL (9-16); Calcium 8.9 mg/dL (8.4-10.2); Carbon Dioxide 28 mmol/L (22-29); Chloride 96 mmol/L (96-108); Creatinine Clr Calc Pharmacy 50.3; Estimated Glomerular Filt Rate > 60; Glucose Random 106 mg/dL (60-115); Magnesium 1.8 mg/dL (1.6-2.6); Sodium 132 mmol/L (135-145); Total Protein 7.4 g/dL (6.5-8.0)
[2024-03-29 11:45] LABS: Atypical Lymph Absolute Manual 0.3 x10*3/uL; Atypical Lymphs Percent Manual 1 % (0-6); Band Neutrophils Percent 5 % (3-5); Basophils Abs Manual 0.6 X10*3/uL (0.0-0.2); Basophils Percent Manual 2 % (0-2); Eosinophils Absolute Manual 2.4 X10*3/uL (0.0-0.4); Eosinophils Percent Manual 8 % (0-4); Lymphocytes Absolute Manual 1.2 X10*3/uL (1.2-4.9); Lymphocytes Percent Manual 4 % (20-40); Monocytes Absolute Manual 2.4 X10*3/uL (0.1-1.2); Monocytes Percent Manual 8 % (2-11); Neutrophils Absolute Manual 23.3 X10*3/uL (2.0-8.3); Neutrophils Percent Manual 72 % (45-73)
[2024-03-29 11:48] LABS: Influenza A PCR NEGATIVE (Negative); Influenza B PCR NEGATIVE (Negative); Resp Syncy Virus RNA Qual PCR NEGATIVE (Negative); SARS COV2 PCR INHOUSE NEGATIVE (Negative); Troponin-I High Sensitivity 6.4 ng/L (<3.5-35.0)
[2024-03-29 11:52] LABS: RBC Morphology NOTED
[2024-03-29 11:53] LABS: Acanthocytes 2+ (3-5) /OIF; Burr Cells 1+ (0-2) /OIF; Giant Platelet PRESENT; Large Platelet PRESENT; Microcytosis 3+ (>30) /OIF; Ovalocytes 3+ (>30) /OIF; Platelet Estimate NORMAL (NORMAL); Platelet Morphology Comment NOTED; Schistocytes 1+ (0-2) /OIF; Target Cells 1+ (5-14) /OIF; Tear Drop Cells 1+ (0-2) /OIF
[2024-03-29 11:54] LABS: Hypochromasia 2+ (15-30) /OIF; Polychromasia 2+ (3-5) /OIF
[2024-03-29 12:00] LABS: B Type Natriuretic Peptide 105 pg/mL (<100)
--- NOTE | 2024-03-29 12:31 | ED_ITS ---
HPI - General Adult General Chief complaint: Dyspnea Stated complaint: Diff breathing Foot swelling Time Seen by Provider: 03/29/24 12:31 History of Present Illness ED Provider: Gian MCMAHON narrative: The patient is an 88-year-old male who lives at home. He has had some worsening shortness of breath over the last 2-3 days. He has also had some worsening pain and swelling in his left leg. Both of his legs are swollen but he says the left leg is more swollen and hurts. He is apparently on apixaban. The patient was seen in the hospital 1 month ago. At that time he had had some kind of a tachydysrhythmia for which he was cardioverted in the emergency room. It was not clear whether he was in SVT or a atrial flutter or atrial fibrillation. He had an echocardiogram that showed a left ventricular ejection fraction of 60-65%. Although the nature of the arrhythmia was not entirely clear the patient was started on empiric amiodarone. He was also started on apixaban since atrial fibrillation was in the differential diagnosis. The patient was therefore started on amiodarone and apixaban a little over a month ago. He has been at home. In addition to the discomfort he has in his left leg he also has some pain in his left upper back. He feels somewhat more short of breath than usual. Related Data Home Medications ?Medication ?Instructions ?Recorded ?Confirmed atorvastatin 20 mg tablet 20 mg PO DAILY 02/22/20 02/13/24 cilostazol 50 mg tablet 50 mg PO BID 02/22/20 02/13/24 albuterol sulfate 2.5 mg/3 mL 2.5 mg inhalation TID 02/13/24 02/13/24 (0.083 %) solution for nebulization cyanocobalamin (vitamin B-12) 50 50 mcg PO DAILY 02/13/24 02/13/24 mcg tablet (Vitamin B-12) fluticasone fur. 200 mcg-umeclid 1 ea inhalation DAILY 02/13/24 02/13/24 62.5 mcg-vilant 25 mcg inhalat.powder (Trelegy Ellipta) furosemide 40 mg tablet 40 mg PO DAILY 02/13/24 02/13/24 metoprolol succinate 50 mg 50 mg PO DAILY 02/13/24 02/13/24 tablet,extended release 24 hr vficqazjuzde-labuqxlk-wqxjfn tablet 1 tab PO DAILY 02/13/24 02/13/24 Previous Rx's ?Medication ?Instructions ?Recorded amiodarone 200 mg tablet 400 mg (2 x 200 mg) PO BID #96 tabs 02/15/24 apixaban 5 mg tablet 5 mg PO BID #180 tabs 02/15/24 Allergies Allergy/AdvReac Type Severity Reaction Status Date / Time No Known Allergies Allergy Verified 03/29/24 10:22 [No Known Allergies*] [facility] Past Medical History Medical History Polycythemia Fracture High cholesterol HTN (hypertension) Heart attack Surgical History S/P angiogram of extremity Hx of rotator cuff surgery H/O arthroscopy of shoulder Family History Family History Daughter Aortic aneurysm Social History Social History Household Members: Family Housing: House Do you presently have visiting nurse or other home services: No Patient Tobacco Use Status: Current everyday Tobacco user Tobacco use type: Cigarette Cigarette Packs Per Day: 1 Smoked in Last 30 Days: No Second Hand Smoke Exposure: No Use of substances other than those prescribed or required for medical reasons: No Advance Directives: No Advance Directives Information Provided: Yes Do you have a plan to hurt others: No Plan service: No Physical Exam ED Vital Signs: Vital Signs - 24 hr 03/29/24 10:19 03/29/24 13:17 03/29/24 14:15 Temperature 97.9 F Pulse Rate 87 85 85 Respiratory Rate 18 22 H 22 H Blood Pressure 95/67 132/75 Pulse Oximetry 99 100 Oxygen Delivery Method Room Air Nasal Cannula Oxygen Flow Rate 2 03/29/24 14:32 03/29/24 15:01 Temperature 98.8 F Pulse Rate 80 Respiratory Rate 20 Blood Pressure 115/59 L Pulse Oximetry 95 Oxygen Delivery Method Aerosol Mask Oxygen Flow Rate 2 BMI result Body Mass Index 23.0 Const Other: The patient is an 88-year-old man who looks somewhat chronically ill. He is awake and alert. He is not in overt visible distress. He is pleasant and cooperative. HENMT Other: Face is symmetrical. Mucous membranes moist Eyes General: appearance normal, both eyes and all related structures Sclerae: sclerae normal EOM: EOMs intact bilaterally Neck Neck: Yes full ROM and Yes no JVD Resp Other: Diminished air entry bilaterally. Wheezes bilaterally. Cardio Rate: regular rate Rhythm: regular rhythm Heart sounds: S1 normal heart sound present and S2 normal heart sound present GI Other: Abdomen is soft and nontender Skin Other: The patient has some edema to both lower legs. This seems more prominent in the left lower leg jkqzd-ypr-uxvg. I feel there is some poorly defined redness to the skin of the posterior left lower leg extending into the left foot. The posterior left lower leg and foot seem warm and tender. Extrem Other: The patient has some edema both lower legs. This is more prominent on the left side and there is some red discoloration to the skin. Medications Administered Generic Name Dose Route Start Last Admin Trade Name Freq PRN Reason Stop Dose Admin Vancomycin HCl 1,000 mg/ 535 mls @ 267.5 mls/hr 03/29/24 16:09 03/29/24 16:40 Vancomycin HCl 750 mg/ Sodium IV 03/29/24 18:08 267.5 mls/hr Chloride ONCE ONE Administration Discontinued Medications Generic Name Dose Route Start Last Admin Trade Name Freq PRN Reason Stop Dose Admin Albuterol/Ipratropium 3 ml 03/29/24 13:50 03/29/24 14:14 Albuterol/Iprat 2.5/0.5mg 3 Ml Ampul.Neb INHALE 03/29/24 13:51 3 ml ONCE ONE Administration Medical Decision Making Medical Decision Making [facility] Narrative: The patient is an 88-year-old male who presents with a chief complain of left lower leg pain and swelling. There is some subtle redness to the skin of the posterior lower leg and foot but this does not have the typical appearance of a cellulitis although it is warm and tender. A DVT ultrasound of the left leg is negative. On physical exam the patient also has some wheezes which is not surprising since the patient is a long-term smoker who still smokes. His chest x-ray shows only chronic interstitial changes. [place] [address]. This is consistent with previous significantly elevated white counts recently. Although I do not have a clear sense that this is definite he has cellulitis a cellulitis is possible and therefore the patient will be started on antibiotics. He was started on vancomycin. He will be admitted to the hospitalist service. Lab Data 03/29/24 10:59 03/29/24 10:59 Labs: Lab Results 03/29/24 03/29/24 03/29/24 Range/Units 10:59 11:05 14:11 WBC 30.2 H* (4.8-10.8) X10*3/uL RBC 6.74 H (4.60-5.80) X10*6/uL Hgb 11.1 L (14.0-18.0) g/dl Hct 38.7 L (42.0-52.0) % MCV 57.4 L (80.0-98.0) fL MCH 16.5 L (27.0-33.0) pg MCHC 28.7 L (31.0-36.0) g/dl RDW 28.3 H (11.0-16.0) % Plt Count 251 D (160-400) X10*3/uL MPV Not Reportable Immature Gran % (Auto) Cancelled Neut % (Auto) Cancelled Lymph % (Auto) Cancelled [place] % (Auto) Cancelled Eos % (Auto) Cancelled Baso % (Auto) Cancelled Lymph # (Auto) Cancelled [place] # (Auto) Cancelled Eos # (Auto) Cancelled Baso # (Auto) Cancelled Abs Immat Gran (auto) Cancelled Absolute Neuts (auto) Cancelled Absolute Nucleated RBC 0.000 (0.0-0.012) X10*3/uL Nucleated RBC % (auto) 0.0 (0.0-0.2) /100WBC Neutrophils % (Manual) 72 (45-73) % Band Neutrophils % 5 (3-5) % Lymphocytes % (Manual) 4 L (20-40) % Atypical Lymphs % (Man) 1 (0-6) % Monocytes % (Manual) 8 (2-11) % Eosinophils % (Manual) 8 H (0-4) % Basophils % (Manual) 2 (0-2) % Abs Neuts (Manual) 23.3 H (2.0-8.3) X10*3/uL Lymphocytes # (Manual) 1.2 (1.2-4.9) X10*3/uL Atyp Lymphs # (Manual) 0.3 x10*3/uL Monocytes # (Manual) 2.4 H (0.1-1.2) X10*3/uL Eosinophils # (Manual) 2.4 H (0.0-0.4) X10*3/uL Basophils # (Manual) 0.6 H (0.0-0.2) X10*3/uL Platelet Estimate NORMAL (NORMAL) Large Platelets PRESENT Giant Platelets PRESENT Plt Morphology Comment NOTED RBC Morphology NOTED Polychromasia 2+ (3-5) /OIF Hypochromasia 2+ (15-30) /OIF Microcytosis 3+ (>30) /OIF Target Cells 1+ (5-14) /OIF Tear Drop Cells 1+ (0-2) /OIF Ovalocytes 3+ (>30) /OIF Jason Cells 1+ (0-2) /OIF Acanthocytes (Spur) 2+ (3-5) /OIF Schistocytes 1+ (0-2) /OIF PT 14.1 H (10.9-12.4) SEC INR 1.2 H (0.9-1.1) APTT 26.9 (26.0-36.8) SEC VBG pH 7.40 (7.32-7.43) VBG pCO2 49 mmHg VBG pO2 43 mmHg VBG HCO3 31 H (22-26) mmol/L VBG O2 Saturation 70.0 % VBG Base Excess 5.6 mmol/L Sodium 132 L (135-145) mmol/L Potassium 4.0 (3.3-5.1) mmol/L Chloride 96 (96-108) mmol/L Carbon Dioxide 28 (22-29) mmol/L Anion Gap 12 (12-20) BUN 12 (9-16) mg/dL Creatinine 1.04 (0.5-1.4) mg/dL Estim Creat Clear Calc 50.3 Estimated GFR > 60 Random Glucose 106 (60-115) mg/dL Lactic Acid 1.7 (0.5-2.0) mmol/L Calcium 8.9 (8.4-10.2) mg/dL Magnesium 1.8 (1.6-2.6) mg/dL Total Bilirubin 0.7 (0.0-1.0) mg/dL AST 34 (5-37) U/L ALT 12 (0-40) U/L Alkaline Phosphatase 101 (39-117) U/L Troponin I High Sens 6.4 D (<3.5-35.0) ng/L C-Reactive Protein (< or = 0.50) mg/dL B-Natriuretic Peptide 105 H (<100) pg/mL Total Protein 7.4 (6.5-8.0) g/dL Albumin 4.0 (3.5-5.0) g/dL Influenza Type A (PCR) NEGATIVE (Negative) Influenza Type B (PCR) NEGATIVE (Negative) RSV RNA Qual (PCR) NEGATIVE (Negative) SARS-CoV-2 RNA (RT-PCR) NEGATIVE (Negative) 03/29/24 Range/Units 14:24 WBC (4.8-10.8) X10*3/uL RBC (4.60-5.80) X10*6/uL Hgb (14.0-18.0) g/dl Hct (42.0-52.0) % MCV (80.0-98.0) fL MCH (27.0-33.0) pg MCHC (31.0-36.0) g/dl RDW (11.0-16.0) % Plt Count (160-400) X10*3/uL MPV Immature Gran % (Auto) Neut % (Auto) Lymph % (Auto) [place] % (Auto) Eos % (Auto) Baso % (Auto) Lymph # (Auto) [place] # (Auto) Eos # (Auto) Baso # (Auto) Abs Immat Gran (auto) Absolute Neuts (auto) Absolute Nucleated RBC (0.0-0.012) X10*3/uL Nucleated RBC % (auto) (0.0-0.2) /100WBC Neutrophils % (Manual) (45-73) % Band Neutrophils % (3-5) % Lymphocytes % (Manual) (20-40) % Atypical Lymphs % (Man) (0-6) % Monocytes % (Manual) (2-11) % Eosinophils % (Manual) (0-4) % Basophils % (Manual) (0-2) % Abs Neuts (Manual) (2.0-8.3) X10*3/uL Lymphocytes # (Manual) (1.2-4.9) X10*3/uL Atyp Lymphs # (Manual) x10*3/uL Monocytes # (Manual) (0.1-1.2) X10*3/uL Eosinophils # (Manual) (0.0-0.4) X10*3/uL Basophils # (Manual) (0.0-0.2) X10*3/uL Platelet Estimate (NORMAL) Large Platelets Giant Platelets Plt Morphology Comment RBC Morphology Polychromasia /OIF Hypochromasia /OIF Microcytosis /OIF Target Cells /OIF Tear Drop Cells /OIF Ovalocytes /OIF Jason Cells /OIF Acanthocytes (Spur) /OIF Schistocytes /OIF PT (10.9-12.4) SEC INR (0.9-1.1) APTT (26.0-36.8) SEC VBG pH (7.32-7.43) VBG pCO2 mmHg VBG pO2 mmHg VBG HCO3 (22-26) mmol/L VBG O2 Saturation % VBG Base Excess mmol/L Sodium (135-145) mmol/L Potassium (3.3-5.1) mmol/L Chloride (96-108) mmol/L Carbon Dioxide (22-29) mmol/L Anion Gap (12-20) BUN (9-16) mg/dL Creatinine (0.5-1.4) mg/dL Estim Creat Clear Calc Estimated GFR Random Glucose (60-115) mg/dL Lactic Acid (0.5-2.0) mmol/L Calcium (8.4-10.2) mg/dL Magnesium (1.6-2.6) mg/dL Total Bilirubin (0.0-1.0) mg/dL AST (5-37) U/L ALT (0-40) U/L Alkaline Phosphatase (39-117) U/L Troponin I High Sens (<3.5-35.0) ng/L C-Reactive Protein 1.95 H (< or = 0.50) mg/dL B-Natriuretic Peptide (<100) pg/mL Total Protein (6.5-8.0) g/dL Albumin (3.5-5.0) g/dL Influenza Type A (PCR) (Negative) Influenza Type B (PCR) (Negative) RSV RNA Qual (PCR) (Negative) SARS-CoV-2 RNA (RT-PCR) (Negative) Independent Interpretation I performed an independent interpretation of an: EKG Interpretation: EKG at 1036 shows sinus rhythm with a first-degree AV block at 85 beats per minute. No definite acute ischemic changes. Discharge Plan Discharge Clinical Impression: Pain and swelling of left lower leg, COPD (chronic obstructive pulmonary disease) Patient Disposition: Admitted As Inpatient Interventions: Admission Worksheet (ED) Last Done: 03/29/24 16:36
--- OUTSIDE RECORDS SUMMARY | 2024-03-29 13:49 | XMS_ITS | Clinical Summary ---
Author Organization [facility] ity Address [address] [place] [address] Care Team Providers Care Pay Station Department Manager Name Role Phone Unavailable Primary Care Provider Unavailabl e Social History Tobacco Use Types Packs/Day Years Used Date Smoking Tobacco: Never Assessed Sex and Gender Information Value Date Recorded Sex Assigned at Not on file Gender Identity Not on file Sexual Orientation Not on file Plan of Treatment Health Maintenance Due Date Last Done Comments DTaP,Tdap,and Td Vaccines (1 - Tdap) [birth year]30/1954 Zoster Vaccines (1 of 2) 08/30/1985 Pneumococcal Vaccine: 65+ Ye ars (1 of 1 - PCV) 08/30/2000 RSV Immunization Patients 60 + Years Old (1 - 1-dose 75+ series) 08/30/2010 COVID-19 Vaccine (2023-2 5 season) 2023 Influenza Vaccine (#1) 2023 HIB Vaccines Aged Out No longer eligi ble based on patient's age to complete this topic HPV Vaccines Aged Out No longer eligi ble based on patient's age to complete this topic Hepatitis A Vaccines Aged Out No long er eligible based on patient's age to complete this topic Hepatitis B Vaccines Aged Out No long er eligible based on patient's age to complete this topic IPV Vaccines Aged Out No longer eligi ble based on patient's age to complete this topic MMR Vaccines Aged Out No longer eligi ble based on patient's age to complete this topic Meningococcal ACWY Vaccine Aged Out N o longer eligible based on patient's age to complete this topic RSV Immunization Patients Un marisol 20 months Aged Out No longer eligible b ased on patient's age to complete this topic Varicella Vaccines Aged Out No longer eligible based on patient's age to complete this topic
--- OUTSIDE RECORDS SUMMARY | 2024-03-29 13:49 | XMS_ITS | Referral Summary ---
Author Organization [facility] Address [address] [place] [address] Care Team Providers Care Public Health Epidemiologist Name Role Phone Stephanie Gillespie Primary Care Provider [phone] Allergies No known active allergies Medications atorvastatin (LIPITOR) 20 mg tablet 05/06/2020 Active cyanocobalamin (VITAMIN B12) 500 mcg tablet Take 500 mcg by mouth daily. Active multivitamin (Multiple Vitamins) tablet Take 1 tablet by mouth daily. Active acetaminophen (TYLENOL) 325 mg tablet Take 2 tablets (650 mg total) by mouth every 6 hours as needed for pain. 06/20/2020 Active clopidogreL (PLAVIX) 75 mg tablet Take 1 tablet (75 mg total) by mouth daily. 90 tablet 06/20/2020 Active gabapentin (NEURONTIN) 100 mg capsule Take 100 mg by mouth 3 times a day. Active metoprolol succinate XL (TOPROL XL) 50 mg tablet Take 50 mg by mouth daily. Active amLODIPine (NORVASC) 2.5 mg tablet Take 2.5 mg by mouth daily. Active aspirin 81 mg EC tablet Take 81 mg by mouth daily. Active Active Problems Problem Noted Date Diagnosed Date PAD (peripheral artery disease) 06/19/2020 Assessment & Plan (06/27/2020 3:34 PM EDT): This is a very pleasant 84yo gentleman who is post-op after a right FEA. He is doing well overall and does have a hematoma in the right groin. We reassured him and his son that this would take several weeks to resolve and that they may return or call our office if they have further concerns. We will plan on seeing him in 3 months for a repeat duplex and ABIs. He would like to follow up with Dr. Brooks in his new practice - his office will reach out to schedule follow up. Rest pain of both lower extremities due to ather osclerosis 06/19/2020 Weak arterial pulse 05/09/2020 Claudication 04/19/2020 Social History Tobacco Use Types Packs/Day Years Used Date Smoking Tobacco: Every Day Cigarettes 1 65 Smokeless Tobacco: Never Alcohol Use Standard Drinks/Week Comments Not Currently 0 (1 standard drink = 0.6 oz pur e alcohol) Sex and Gender Information Value Date Recorded Sex Assigned at Not on file Legal Sex Male 1:15 PM EST Gender Identity Not on file Sexual Orientation Not on file Last Filed Vital Signs Vital Sign Reading Time Taken Comments Blood Pressure 111/78 07/07/2020 10:31 AM EDT Pulse 72 07/07/2020 10:31 AM EDT Temperature 36.5 ??C (97.7 ??F) 06/27/2020 1:38 PM ED T Respiratory Rate 16 07/07/2020 10:31 AM EDT Oxygen Saturation 99% 07/07/2020 10:31 AM EDT Inhaled Oxygen Concentration - - Weight 61.2 kg (135 lb) 07/07/2020 10:31 AM EDT Height 160 cm (5' 3 ) 07/07/2020 10:31 AM EDT Body Mass Index 23.91 07/07/2020 10:31 AM EDT Plan of Treatment Not on file Medical Devices Implanted Type Area Director Of Culture Device Identifier Shelf Expiration Date Model / Serial / Lot Patch Carotid Peripatch [id number] Xenosure - [id number] Implanted:Qty: 1 on 06/19/2020 by Bo Brooks MD at [facility] Implant Right: Groin LEMAITRE VASCULAR 02/20/2026 [id number] / / [id number] Description:Soaked in 500 ml of NACL for 2 mins prior to implanting. NACL lot # [id number]. Exp date April 2023 Stent Vascular Balloon Expandable [id number] Viabahn - [id number] - [id number] Implanted:Qty: 1 on 06/19/2020 by Bo Brooks MD at [facility] Stent Right: Sera GARVIN 09/21/2022 [id number] / [id number] / Description:iliac Insurance [facility] Advance Directives * Full Code (Latest Code Status on File) Date Activated Date Inactivated Comments 06/19/2020 10:39 AM 06/20/2020 5:25 PM Care Teams Public Health Epidemiologist Relationship Specialty Start Date End Date Stephanie Gillespie [address] [address] PCP - General Internal Medicine 04/17/20
--- OUTSIDE RECORDS SUMMARY | 2024-03-29 13:49 | XMS_ITS | Encounter Summary ---
Author Organization [facility] Address [address] [place] [address] Care Team Providers Care Offender Employment Specialist Name Role Phone Stephanie Gillespie Primary Care Provider [phone] Encounter Details Date Type Department Care Team (Late st Contact Info) Description 05/09/2020 Orders Only [facility] 2 Rad ACT [address] [place] [address] Hernan Keen MD [address] [place] [address] Social History Tobacco Use Types Packs/Day Years Used Date Smoking Tobacco: Every Day Cigarettes 1 65 Smokeless Tobacco: Never Sex and Gender Information Value Date Recorded Sex Assigned at Not on file Legal Sex Male 1:15 PM EST Gender Identity Not on file Sexual Orientation Not on file documented as of this encounter Plan of Treatment Not on file documented as of this encounter Visit Diagnoses Not on filedocumented in this encounter Care Teams Offender Employment Specialist Relationship Specialty Start Date End Date Stephanie Gillespie [address] [address] PCP - General Internal Medicine 04/17/20 documented as of this encounter
--- OUTSIDE RECORDS SUMMARY | 2024-03-29 13:49 | XMS_ITS | Clinical Summary ---
Author Organization [facility] Address [address] [place] [address] Care Team Providers Care Concrete Craftsman Name Role Phone Stephanie Gillespie Primary Care Provider [phone] Allergies No known active allergies Medications atorvastatin [...] 07/07/2020 10:31 AM EDT Plan of Treatment Health Maintenance Due Date Last Done Comments DTaP,Tdap,and Td Vaccines (1 - Tdap) 08/30/1957 Zoster Vaccines (1 of 2) 08/30/1985 RSV Vaccine (60+ years old and patients) (1 - 1-dose 75+ series) 08/30/2010 Pneumococcal Vaccine: 65+ Years (2 of 2 - PCV) 11/25/2015 11/24/2014 COVID-19 Vaccine (1 - 2023-2 5 season) 2023 Influenza Vaccine (#1) 2023 , 01/19/2017, 11/24/2014 Alcohol/Substance Use Screening 02/25/2024 Health Care Proxy Review 02/25/2024 Hepatitis B Vaccines Aged Out No long er eligible based on patient's age to complete this topic Medical Devices Implanted Type Area Button Maker And Installer Device Identifier Shelf Expiration Date Model / Serial / Lot Patch Carotid Peripatch [id number] Xenosure - [id number] Implanted:Qty: 1 on 06/19/2020 by Bo Brooks MD at [facility] Implant Right: Grokori CARROLLTRE VASCULAR 02/20/2026 E0.8P8 / / [id number] Description:Soaked in 500 ml of NACL for 2 mins prior to implanting. NACL lot # [id number]. Exp date April 2023 Stent Vascular Balloon Expandable [id number] Viabahn - [id number] - [id number] Implanted:Qty: 1 on 06/19/2020 by Bo Brooks MD at [facility] Stent Right: Groin W L GORE 09/21/2022 [id number] / [id number] / Description:iliac [place] [address] [place] [address] Advance Directives * Full Code (Latest Code Status on File) Date Activated Date Inactivated Comments 06/19/2020 10:39 AM 06/20/2020 5:25 PM Care Teams Concrete Craftsman Relationship Specialty Start Date End Date Stephanie Gillespie [address] [address] PCP - General Internal Medicine 04/17/20
--- OUTSIDE RECORDS SUMMARY | 2024-03-29 13:49 | XMS_ITS | Encounter Summary ---
Author Organization [facility] Address [address] [place] [address] Care Team Providers Care Drier Tender Naphthalene Name Role Phone Stephanie Gillespie Primary Care Provider [phone] Encounter Details Date Type Department Care Team (Late st Contact Info) Description 04/28/2020 Orders Only [facility] 2 Rad ACT [address] [place] [address] Hernan Keen MD [address] [place] [address] Social History Tobacco Use Types Packs/Day Years [...] on filedocumented in this encounter Care Teams Drier Tender Naphthalene Relationship Specialty Start Date End Date Stephanie Gillespie [address] [address] PCP - General Internal Medicine 04/17/20 documented as of this encounter
[2024-03-29] MEDS: Albuterol/Iprat 2.5/0.5MG 3 ML AMPUL.NEB INHALE (14:14)
[2024-03-29 14:37] LABS: Lactic Acid 1.7 mmol/L (0.5-2.0)
[2024-03-29 15:02] LABS: C Reactive Protein 1.95 mg/dL (< or = 0.50)
--- NOTE | 2024-03-29 16:18 | P.HPHOSP_ITS ---
History of Present Illness Date of Service: 03/29/24 Chief Complaint: Left lower leg pain swelling of 2 weeks' duration 88-year-old gentleman with past medical history significant for COPD, subclavian stenosis status post stenting, hypertension, coronary artery disease with history of non ST elevation [place], history of active tobacco use disorder was discharged from [facility] on February 14 after requiring admission for acute hypoxic and hypercarbic respiratory failure and cardiogenic shock due to unstable narrow complex tachycardia underwent emergent cardioversion, was discharged home on amiodarone and Eliquis, patient also with known history of 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, presented today due to left lower extremity swelling and pain of 2 weeks' duration patient denies history of trauma, no fall, denies associated fever, no chills, no lightheadedness, no dizziness in the emergency room workup including venous duplex scan showed no DVT, sodium of 132 squamous CRP 1.95, lactic acid 1.7, WBC count of 30,000 chronically elevated patient afebrile with stable heart rate, chest x-ray showed no acute infiltrate due to significant left lower extremity swelling erythema and pain patient is being admitted to [facility] for treatment and evaluation of possible cellulitis. Review of Systems 2 Review of Systems: General no headache no dizziness no fever chills. CVS no chest pain, no palpitation. Respiratory no cough, no worsening chronic sob Gastrointestinal no nausea no vomiting, no abdominal pain no urgency, no frequency All other system reviewed and are negative [facility] Medical History Polycythemia Fracture High cholesterol HTN (hypertension) Heart attack Family History Daughter Aortic aneurysm Surgical History S/P angiogram of extremity Hx of rotator cuff surgery H/O arthroscopy of shoulder Social History Household Members: Spouse and Family Housing: House Do you presently have visiting nurse or other home services: No Patient Tobacco Use Status: Current everyday Tobacco user Tobacco use type: Cigarette Cigarette Packs Per Day: 1 Smoked in Last 30 Days: Yes Patient Interested in Nicotine Replacement: No Patient Given Instructions on How to Stop Smoking: No Second Hand Smoke Exposure: No Use of substances other than those prescribed or required for medical reasons: No Currently Displaying Signs/Symptoms of Drug Intoxication Withdrawal: No Any prior treatment program specific to substance use: No Have you been hit, kicked, punched, or otherwise hurt by someone within the past year? If so, by whom?: No Do you feel safe in your current relationship?: Yes Is there a partner from a previous relationship who is making you feel unsafe now?: No Are you made to feel afraid or neglected: No Advance Directives: No Advance Directives Information Provided: Yes Do you have a plan to hurt others: No Plan Recently lost weight without trying: No Eating poorly because of decreased appetite: No Nutrition Risks: No Nutritional Risk Poor oral hygiene: No service: No Meds Allergies Allergy/AdvReac Type Severity Reaction Status Date / Time No Known Allergies Allergy Verified 03/29/24 10:22 [No Known Allergies*] Active Medications: Current Medications Acetaminophen (Acetaminophen 325 Mg Tablet) 650 mg PO Q6H PRN PRN Reason: Pain, Mild 1-3,fever,headache Benzonatate (Benzonatate 100 Mg Capsule) 100 mg PO TID PRN PRN Reason: Cough Calcium Carbonate (Calcium Carbonate 750 Mg Tab.Chew) 750 mg PO Q4H PRN PRN Reason: Heartburn Vancomycin HCl 1,000 mg/Vancomycin HCl 750 mg/ Sodium Chloride 535 mls @ 267.5 mls/hr IV ONCE ONE Stop: 03/29/24 18:08 Magnesium Hydroxide (Milk Of Magnesia 30 Ml Oral.Susp) 30 ml PO DAILY PRN PRN Reason: Constipation Melatonin (Melatonin 3 Mg Tablet) 6 mg PO BEDTIME PRN PRN Reason: Insomnia Ondansetron HCl (Ondansetron Hcl 4 Mg/2 Ml Vial) 4 mg IVPUSH Q8H PRN PRN Reason: Nausea and Vomiting Pharmacy Consult (Consult Rx Vancomycin Dosing) 1 each MISCELLANE DAILY PRN PRN Reason: Consult order Sodium Chloride (0.9 % Sodium Chloride Flush 3 Ml Syringe) [address] [facility] Home Medications ?Medication ?Instructions ?Recorded ?Confirmed ?Last Taken ?Type atorvastatin 20 mg tablet 20 mg PO DAILY 02/22/20 03/29/24 02/13/24 09:00 History albuterol sulfate 2.5 mg/3 mL 2.5 mg inhalation TID 02/13/24 03/29/24 02/13/24 09:00 History (0.083 %) solution for nebulization cyanocobalamin (vitamin B-12) 50 50 mcg PO DAILY 02/13/24 03/29/24 02/13/24 09:00 History mcg tablet (Vitamin B-12) fluticasone fur. 200 mcg-umeclid 1 ea inhalation DAILY 02/13/24 03/29/24 02/13/24 09:00 History 62.5 mcg-vilant 25 mcg inhalat.powder (Trelegy Ellipta) furosemide 40 mg tablet 40 mg PO DAILY 02/13/24 03/29/24 02/13/24 09:00 History metoprolol succinate 50 mg 50 mg PO DAILY 02/13/24 03/29/24 02/13/24 09:00 History tablet,extended release 24 hr ocnhjoggcgps-awlbvdwo-looemw tablet 1 tab PO DAILY 02/13/24 03/29/24 02/13/24 09:00 History aspirin 81 mg chewable tablet 81 mg PO DAILY 03/30/24 03/30/24 Unknown History Physical Exam 2 Vital Signs and Narrative: Vital Signs: Last Vital Signs Temp 98.8 F 03/29/24 15:01 Pulse 80 03/29/24 14:32 Resp 20 03/29/24 14:32 BP 115/59 L 03/29/24 14:32 Pulse Ox 95 03/29/24 14:32 O2 Del Method Aerosol Mask 03/29/24 14:32 O2 Flow Rate 2 03/29/24 14:32 BMI result Body Mass Index 23.0 Const: Other: General awake alert x3, resting comfortably in no acute distress. Anicteric sclera Neck supple no JVD. CVS regular rate rhythm, Respiratory lungs no respiratory distress, no wheeze, bilateral rhonchi Gastrointestinal abdomen soft, non tender, bowel sounds audible, no guarding , no rigidity. Extremities left lower extremity swelling /worse at back of leg/ warm and tender to palpation, nonspecific papules plantar foot, limited range of motion left knee, suprapatellar swelling left knee Right leg with red streak Neuro non focal Appropriate affect Results Labs 03/29/24 10:59 03/30/24 05:35 Labs: Laboratory Results - last 24 hr 03/29/24 03/29/24 03/29/24 10:59 11:05 14:11 MCV 57.4 L MCH 16.5 L MCHC 28.7 L RDW 28.3 H Plt Count 251 D MPV Not Reportable Immature Gran % (Auto) Cancelled Neut % (Auto) Cancelled Lymph % (Auto) Cancelled [place] % (Auto) Cancelled Eos % (Auto) Cancelled Baso % (Auto) Cancelled Lymph # (Auto) Cancelled [place] # (Auto) Cancelled Eos # (Auto) Cancelled Baso # (Auto) Cancelled Abs Immat Gran (auto) Cancelled Absolute Neuts (auto) Cancelled Absolute Nucleated RBC 0.000 Nucleated RBC % (auto) 0.0 Neutrophils % (Manual) 72 Band Neutrophils % 5 Lymphocytes % (Manual) 4 L Atypical Lymphs % (Man) 1 Monocytes % (Manual) 8 Eosinophils % (Manual) 8 H Basophils % (Manual) 2 Abs Neuts (Manual) 23.3 H Lymphocytes # (Manual) 1.2 Atyp Lymphs # (Manual) 0.3 Monocytes # (Manual) 2.4 H Eosinophils # (Manual) 2.4 H Basophils # (Manual) 0.6 H Platelet Estimate NORMAL Large Platelets PRESENT Giant Platelets PRESENT Plt Morphology Comment NOTED RBC Morphology NOTED Polychromasia 2+ (3-5) Hypochromasia 2+ (15-30) Microcytosis 3+ (>30) Target Cells 1+ (5-14) Tear Drop Cells 1+ (0-2) Ovalocytes 3+ (>30) [place] Cells 1+ (0-2) Acanthocytes (Spur) 2+ (3-5) Schistocytes 1+ (0-2) PT 14.1 H INR 1.2 H APTT 26.9 VBG pH 7.40 VBG pCO2 49 VBG pO2 43 VBG HCO3 31 H VBG O2 Saturation 70.0 VBG Base Excess 5.6 Anion Gap 12 Estim Creat Clear Calc 50.3 Estimated GFR > 60 Random Glucose 106 Lactic Acid 1.7 Calcium 8.9 Magnesium 1.8 Total Bilirubin 0.7 AST 34 ALT 12 Alkaline Phosphatase 101 Troponin I High Sens 6.4 D C-Reactive Protein B-Natriuretic Peptide 105 H Total Protein 7.4 Albumin 4.0 Influenza Type A (PCR) NEGATIVE Influenza Type B (PCR) NEGATIVE RSV RNA Qual (PCR) NEGATIVE SARS-CoV-2 RNA (RT-PCR) NEGATIVE 03/29/24 14:24 MCV MCH MCHC RDW Plt Count MPV Immature Gran % (Auto) Neut % (Auto) Lymph % (Auto) [place] % (Auto) Eos % (Auto) Baso % (Auto) Lymph # (Auto) [place] # (Auto) Eos # (Auto) Baso # (Auto) Abs Immat Gran (auto) Absolute Neuts (auto) Absolute Nucleated RBC Nucleated RBC % (auto) Neutrophils % (Manual) Band Neutrophils % Lymphocytes % (Manual) Atypical Lymphs % (Man) Monocytes % (Manual) Eosinophils % (Manual) Basophils % (Manual) Abs Neuts (Manual) Lymphocytes # (Manual) Atyp Lymphs # (Manual) Monocytes # (Manual) Eosinophils # (Manual) Basophils # (Manual) Platelet Estimate Large Platelets Giant Platelets Plt Morphology Comment RBC Morphology Polychromasia Hypochromasia Microcytosis Target Cells Tear Drop Cells Ovalocytes [place] Cells Acanthocytes (Spur) Schistocytes PT INR APTT VBG pH VBG pCO2 VBG pO2 VBG HCO3 VBG O2 Saturation VBG Base Excess Anion Gap Estim Creat Clear Calc Estimated GFR Random Glucose Lactic Acid Calcium Magnesium Total Bilirubin AST ALT Alkaline Phosphatase Troponin I High Sens C-Reactive Protein 1.95 H B-Natriuretic Peptide Total Protein Albumin Influenza Type A (PCR) Influenza Type B (PCR) RSV RNA Qual (PCR) SARS-CoV-2 RNA (RT-PCR) Imaging Radiologist's Impressions: Impressions Chest X-Ray 03/29/24 11:12 IMPRESSION: Chronic interstitial lung disease without an acute airspace disease. Electronically signed by: Kj Rivera MD 03/29/2024 11:22 AM [employer] [facility] Venous Duplex 03/29/24 13:50 IMPRESSION: No evidence of acute DVT in the left lower extremity. Electronically signed by: Aris Gonzalez MD 03/29/2024 02:09 PM [employer] [facility] Assessment and Plan (1) Pain and swelling of left lower leg: Status: Acute (2) Leukocytosis: Status: Acute (3) COPD (chronic obstructive pulmonary disease): Status: Acute Plan 88-year-old male with a PMH significant for COPD, subclavian stenosis s/p stenting, HTN, CAD w/ hx of NSTEMI in 12/2016, s/p cardiac catheterization w/o stenting, current smoker , history of recent hospitalization to [place] with diagnosis of acute hypoxic and hypercarbic respiratory failure and cardiogenic shock due to unstable narrow complex tachycardia underwent emergent cardioversion in ED due to unclear rhythm SVT versus AFib with RVR patient was loaded with amiodarone and was discharged home on Eliquis, was also noted to have type 2 demand ischemia treated empirically with 48 hours of Lovenox he was also noted to have chronic leukocytosis and thrombocytosis 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 and was diagnosed previously for ANDREA 2 positive myeloproliferative disorder patient presented today with 2 weeks of left lower extremity swelling and pain as well as left upper back pain of 1-2 weeks' duration, patient denies fall, no associated nausea vomiting, no fevers, no chills, in ED workup showed CRP 1.95 sodium 132 normal renal function, normal lactic acid, chest x-ray showed no acute abnormality, venous duplex left lower extremity showed no DVT, patient is now being admitted to [facility] due to left lower extremity pain swelling likely due to left lower extremity cellulitis. Left lower extremity swelling pain Limited range of motion at knee Differential includes cellulitis, no DVT IV vancomycin / knee x-ray/keep leg elevated/ follow clinical course/analgesics Follow blood cultures x2 ID consult Recent history of Sustained SVT status post cardioversion Continue amiodarone 200 mg daily, was started on loading dose in January, continue Eliquis Hold metoprolol, soft blood pressure/hold Lasix Mild chronic intermittent hyponatremia stable COPD no acute exacerbation continue home inhalers. Chronic Leukocytosis History of ANDREA 2 positive myeloproliferative disorder CAD/HLD Continue statin Full Code DVT Prophylaxis: Eliquis Pt will require a hospitalization of at least two nights for treatment of?symptomatic and sustained SVT nonresponsive to chemical therapies requiring cardioversion in the ED patient require close cardiac monitoring, echocardiogram, and specialist consultation with Cardiology. Quality Stroke Does the patient have a stroke diagnosis?: No VTE Prior VTE?: No VTE Risk Level:: Medical - moderate - high VTE Device Contraindication: Treatment Not Indicated VTE Drug Contraindication: N/A - Med Ordered
[2024-03-29] MEDS: vancomycin HCL 1,000 MG, vancomycin HCL 750 MG in 0.9 % Sodium Chloride 500 ML 267.5 MG IV (16:40)
--- NOTE | 2024-03-29 16:57 | PHA.PROG ---
Addendum entered by Page Ladd RPh 03/29/24 17:03: Calculated trough on q12h dosing. New trough scheduled for 04/01 @1500. Original Note: Admission Date/Time: March 29, 2024 16:03 Indication:SSSI Weight in k.575 kg Serum Creatinine - Last 168 Hours 03/29/24 10:59 Creatinine 1.04 Estimated CrCl and GFR - Last 168 Hours 03/29/24 10:59 Estim Creat Clear Calc 50.3 Estimated GFR > 60 Vancomycin Loading Dose: 1750 mg Current Vancomycin Dosing Regimen: 1,000 mg q24h Vancomycin Monitoring using AUC goal of 400 - 600 range with trough as surrogate marker: 501, predicted AUC 15.9 Date and Time for next Vancomycin Level to be drawn: 03/31 @ 0600 Pharmacist Comments on Vancomycin Plan: Vancomycin dosing will take advantage of [employer] as a clinical decision support tool that uses Bayesian modeling to calculate individual patient's pharmacokinetic parameters and forecast the patient's drug concentration time course with the target goal AUC 24 range of 400 - 600 mg/L/hr.
[2024-03-29] MEDS: Apixaban 5 MG TABLET PO (20:29)
[2024-03-29] MEDS: 0.9 % Sodium Chloride Flush 3 ML SYRINGE IVFLUSH (20:33)
--- NOTE | 2024-03-29 21:36 | PHA.MEDREC ---
Addendum entered by Fabio Galo 03/30/24 08:05: Was able to contact his son Silverio today, he confirmed that the patient is taking Amiodaron 400mg BID, Eliquis 5mg BID, and that the aspirin was 325mg but is now 81mg daily and the clopidogrel has stopped. This matches what the patient said about stopping two medications, he was on DAPT, now on Eliquis with 81mg aspirin. Original Note: Pharmacy Consult ? Medication Reconciliation Pharmacy has completed the medication reconciliation. Med rec tech Coty spoke to patient who said he doesn't know his medications. He knows that after being discharged on 02/15/24, he is to discontinue 2 medications but couldn't say which ones. Coty called son Silverio 3x and voicemail box was full. The phone # for son Master is wrong and patient said his doesn't know his meds. Some meds were confirmed using discharge packet from 02/15/24 and pharmacy claims. Note was left for morning med rec team to follow up on amiodarone, eliquis, aspirin and clopidogrel.
[2024-03-30] VITALS (8 sets, daily range): BP systolic 94–117; BP diastolic 54–62; PULSE 80–94; RESP 16–24; TEMP 36–36.5; O2SAT 90–98
[2024-03-30 06:33] LABS: Creatinine Clr Calc Pharmacy 57.2; Estimated Glomerular Filt Rate > 60
[2024-03-30] MEDS: Atorvastatin Calcium 20 MG TABLET PO (08:12)
[2024-03-30] MEDS: Apixaban 5 MG TABLET PO ×2 (08:12→19:33)
[2024-03-30] MEDS: 0.9 % Sodium Chloride Flush 3 ML SYRINGE IVFLUSH ×3 (08:12→19:33)
[2024-03-30] MEDS: Fluticasone/Umeclidinium/Vilanterol 200/62.5/25 BLST.W.DEV 1 PUFF INHALE (08:44)
[2024-03-30] MEDS: Albuterol Sulfate (0.083%) 2.5 MG/3 ML VIAL.NEB INHALE ×3 (08:44→19:52)
[2024-03-30 08:45] LABS: Anion Gap 18 (12-20); Carbon Dioxide 26 mmol/L (22-29); Chloride 96 mmol/L (96-108); Potassium 3.4 mmol/L (3.3-5.1); Sodium 137 mmol/L (135-145)
--- NOTE | 2024-03-30 09:46 | MHC.CM.PN ---
IMM DELIVERED PT LIVES WITH FAMILY. PT HAS NO SERVICES CURRENTLY BUT OPEN TO [facility] SHOULD [facility] BE RECOMMENDED. 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 EDUCATION PROVIDED TO PT REGARDING HCP, PT DECLINES BUT WILL CONTACT CM IF CHANGES MIND. PCP DR. HANNA DP: HOME WITH [facility] VS HOME, NO SERVICES. PT HAS OWN [facility]. CM WILL CONTINUE TO FOLLOW FOR ANY CHANGE TO DC PLAN/NEEDS.
--- NOTE | 2024-03-30 13:11 | HO.PM.IMPN ---
Subjective Subjective Date of Service: 03/30/24 Interval History: Complaining of pain left foot, persistent swelling denies fever, no chills, no nausea, no vomiting or abdominal pain, no other acute events overnight. Review of Systems All other system reviewed and are negative. Physical Exam Vital Signs: Vital Signs: Last Vital Signs Temp 97.4 F 03/30/24 07:58 Pulse 83 03/30/24 08:47 Resp 18 03/30/24 08:47 BP 105/54 L 03/30/24 08:37 Pulse Ox 90 L 03/30/24 07:58 O2 Del Method Room Air 03/30/24 07:58 O2 Flow Rate 2 03/29/24 14:32 BMI result Body Mass Index 22.3 Const: Other: General awake alert x3, resting comfortably in no acute distress. Anicteric sclera Neck supple no JVD. CVS regular rate rhythm, Respiratory lungs no respiratory distress, no wheeze, bilateral rhonchi Gastrointestinal abdomen soft, non tender, bowel sounds audible, no guarding , no rigidity. Extremities left lower extremity swelling, erythema, warm and tender to palpation back of leg, nonspecific papules plantar foot, limited range of motion left knee, suprapatellar swelling left knee Right leg with red streaks Neuro non focal Appropriate affect Objective Data Active Medications Acetaminophen (Acetaminophen 325 Mg Tablet) 650 mg PO Q6H PRN PRN Reason: Pain, Mild 1-3,fever,headache Albuterol Sulfate (Albuterol Sulfate (0.083%) 2.5 Mg/3 Ml Vial.Neb) 2.5 mg INHALE RTID [facility] Last Admin: 03/30/24 08:44 Dose: 2.5 mg Documented By: SHWETA Albuterol/Ipratropium (Albuterol/Iprat 2.5/0.5mg 3 Ml Ampul.Neb) 3 ml INHALE RQ4H WHILE AWAKE PRN PRN Reason: sob Apixaban (Apixaban 5 Mg Tablet) 5 mg PO BID [facility] Last Admin: 03/30/24 08:12 Dose: 5 mg Documented By: GABY Atorvastatin Calcium (Atorvastatin Calcium 20 Mg Tablet) 20 mg PO DAILY [facility] Last Admin: 03/30/24 08:12 Dose: 20 mg Documented By: GABY Benzonatate (Benzonatate 100 Mg Capsule) 100 mg PO TID PRN PRN Reason: Cough Calcium Carbonate (Calcium Carbonate 750 Mg Tab.Chew) 750 mg PO Q4H PRN PRN Reason: Heartburn Cyanocobalamin (Cyanocobalamin (Vitamin B-12) 100 Mcg Tablet) 50 mcg PO DAILY [facility] Fluticasone/Umeclidinium/Vilanterol (Fluticasone/Umeclidinium/Vilanterol 200/62.5/25 Blst.W.Dev) 1 puff INHALE RDAILY [facility] Last Admin: 03/30/24 08:44 Dose: 1 puff Documented By: SHWETA Vancomycin HCl 1,000 mg/ (Sodium Chloride) 270 mls @ 270 mls/hr IV Q24H [facility] Magnesium Hydroxide (Milk Of Magnesia 30 Ml Oral.Susp) 30 ml PO DAILY PRN PRN Reason: Constipation Melatonin (Melatonin 3 Mg Tablet) 6 mg PO BEDTIME PRN PRN Reason: Insomnia Multivitamins/Vitamin C (Multivitamin Tablet) 1 tab PO DAILY [facility] Ondansetron HCl (Ondansetron Hcl 4 Mg/2 Ml Vial) 4 mg IVPUSH Q8H PRN PRN Reason: Nausea and Vomiting Pharmacy Consult (Consult Rx Vancomycin Dosing) 1 each MISCELLANE DAILY PRN PRN Reason: Consult order Sodium Chloride (0.9 % Sodium Chloride Flush 3 Ml Syringe) 3 ml IVFLUSH QSHIFT [facility] Last Admin: 03/30/24 08:12 Dose: 3 ml Documented By: GABY Labs 03/29/24 10:59 03/30/24 05:35 Labs: Laboratory Results - last 24 hr 03/29/24 03/29/24 03/30/24 14:11 14:24 05:35 Anion Gap 18 Estim Creat Clear Calc 57.2 Estimated GFR > 60 Lactic Acid 1.7 C-Reactive Protein 1.95 H Microbiology Microbiology Results: Microbiology 03/29/24 10:59 Blood Culture - Preliminary Blood - Venous No growth after 24 hours. Assessment and Plan (1) COPD (chronic obstructive pulmonary disease): Status: Acute (2) Leukocytosis: Status: Acute (3) Left leg cellulitis: Status: Acute Plan 88-year-old male with a PMH significant for COPD, subclavian stenosis s/p stenting, HTN, CAD w/ hx of NSTEMI in 12/2016, s/p cardiac catheterization w/o stenting, current smoker , history of recent hospitalization to [place] with diagnosis of acute hypoxic and hypercarbic respiratory failure and cardiogenic shock due to unstable narrow complex tachycardia underwent emergent cardioversion in ED due to unclear rhythm SVT versus AFib with RVR patient was loaded with amiodarone and was discharged home on Eliquis, was also noted to have type 2 demand ischemia treated empirically with 48 hours of Lovenox he was also noted to have chronic leukocytosis and thrombocytosis 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 and was diagnosed previously for ANDREA 2 positive myeloproliferative disorder patient presented today with 2 weeks of left lower extremity swelling and pain as well as left upper back pain of 1-2 weeks' duration, patient denies fall, no associated nausea vomiting, no fevers, no chills, in ED workup showed CRP 1.95 sodium 132 normal renal function, normal lactic acid, chest x-ray showed no acute abnormality, venous duplex left lower extremity showed no DVT, patient is now being admitted to [facility] due to left lower extremity pain swelling likely due to left lower extremity cellulitis. Left lower extremity swelling pain Likely left leg cellulitis, no DVT, no sepsis IV vancomycin D1, knee x-ray showed all suprapatellar effusion keep leg elevated Follow blood cultures x2 ID consult Recent history of Sustained SVT status post cardioversion Continue amiodarone 200 mg daily, was started on loading dose in January, continue Eliquis Hold metoprolol and Lasix due to soft blood pressure Mild chronic intermittent hyponatremia resolved COPD no acute exacerbation continue home inhalers. Chronic Leukocytosis History of ANDREA 2 positive myeloproliferative disorder CAD/HLD Continue statin Full Code DVT Prophylaxis: Eliquis Pt will require continued inpatient hospitalization for treatment of?left lower extremity cellulitis requiring IV antibiotics and expert consultation. Quality Stroke Does the patient have a stroke diagnosis?: No VTE Prior VTE?: No VTE Risk Level:: Medical - moderate - high VTE Device Contraindication: Treatment Not Indicated VTE Drug Contraindication: N/A - Med Ordered
[2024-03-30] MEDS: vancomycin HCL 1,000 MG in 0.9 % Sodium Chloride 250 ML 270 MG IV (17:16)
[2024-03-30] MEDS: Acetaminophen 325 MG TABLET 650 MG PO (19:33)
[2024-03-30] MEDS: Benzonatate 100 MG CAPSULE PO (22:34)
[2024-03-31] VITALS (7 sets, daily range): BP systolic 107–125; BP diastolic 55–70; PULSE 71–86; RESP 18–19; TEMP 36–37.1; O2SAT 91–92
[2024-03-31 06:35] LABS: Creatinine Clr Calc Pharmacy 59.9; Estimated Glomerular Filt Rate > 60
[2024-03-31] MEDS: Cyanocobalamin (Vitamin B-12) 100 MCG TABLET 50 MCG PO (07:43)
[2024-03-31] MEDS: Multivitamin TABLET 1 TAB PO (07:44)
[2024-03-31] MEDS: Amiodarone HCL 200 MG TABLET PO (07:46)
[2024-03-31] MEDS: Atorvastatin Calcium 20 MG TABLET PO (07:46)
[2024-03-31] MEDS: Apixaban 5 MG TABLET PO ×2 (07:47→19:56)
[2024-03-31] MEDS: Albuterol Sulfate (0.083%) 2.5 MG/3 ML VIAL.NEB INHALE ×3 (07:51→19:13)
[2024-03-31] MEDS: Fluticasone/Umeclidinium/Vilanterol 200/62.5/25 BLST.W.DEV 1 PUFF INHALE (07:51)
[2024-03-31] MEDS: 0.9 % Sodium Chloride Flush 3 ML SYRINGE IVFLUSH ×3 (09:14→19:56)
--- NOTE | 2024-03-31 09:57 | HO.PM.IMPN ---
Subjective Subjective Date of Service: 03/31/24 Interval History: Being followed for left lower extremity cellulitis, feels leg swelling is improving, pain resolved. Denies fever, no chills, tolerating diet with no nausea, no vomiting, no abdominal pain or diarrhea. Review of Systems All other system reviewed and are negative. Physical Exam Vital Signs: Vital Signs: Last Vital Signs Temp 98.7 F 03/31/24 07:54 Pulse 75 03/31/24 07:54 Resp 19 03/31/24 07:54 BP 120/59 L 03/31/24 07:54 Pulse Ox 91 L 03/31/24 07:54 O2 Del Method Room Air 03/31/24 07:54 O2 Flow Rate 2 03/29/24 14:32 BMI result Body Mass Index 22.3 Const: Other: General awake alert x3, resting comfortably in no acute distress. Anicteric sclera Neck supple no JVD. CVS regular rate rhythm, Respiratory lungs no respiratory distress, no wheeze, bilateral rhonchi Gastrointestinal abdomen soft, non tender, bowel sounds audible, no guarding , no rigidity. Extremities left lower extremity swelling, erythema, improving, nontender to palpation, nonspecific papules plantar foot, limited range of motion left knee, suprapatellar swelling left knee improved Right leg with red streaks non blanchable, nontender not consistent with phlebitis Neuro non focal Appropriate affect Objective Data Active Medications Acetaminophen (Acetaminophen 325 Mg Tablet) 650 mg PO Q6H PRN PRN Reason: Pain, Mild 1-3,fever,headache Last Admin: 03/30/24 19:33 Dose: 650 mg Documented By: PURVI Albuterol Sulfate (Albuterol Sulfate (0.083%) 2.5 Mg/3 Ml Vial.Neb) 2.5 mg INHALE RTID [facility] Last Admin: 03/31/24 07:51 Dose: 2.5 mg Documented By: HOA Albuterol/Ipratropium (Albuterol/Iprat 2.5/0.5mg 3 Ml Ampul.Neb) 3 ml INHALE RQ4H WHILE AWAKE PRN PRN Reason: sob Amiodarone HCl (Amiodarone Hcl 200 Mg Tablet) 200 mg PO DAILY [facility] Last Admin: 03/31/24 07:46 Dose: 200 mg Documented By: OMER Apixaban (Apixaban 5 Mg Tablet) 5 mg PO BID [facility] Last Admin: 03/31/24 07:47 Dose: 5 mg Documented By: OMER Atorvastatin Calcium (Atorvastatin Calcium 20 Mg Tablet) 20 mg PO DAILY [facility] Last Admin: 03/31/24 07:46 Dose: 20 mg Documented By: OMER Benzonatate (Benzonatate 100 Mg Capsule) 100 mg PO TID PRN PRN Reason: Cough Last Admin: 03/30/24 22:34 Dose: 100 mg Documented By: PURVI Calcium Carbonate (Calcium Carbonate 750 Mg Tab.Chew) 750 mg PO Q4H PRN PRN Reason: Heartburn Cyanocobalamin (Cyanocobalamin (Vitamin B-12) 100 Mcg Tablet) 50 mcg PO DAILY [facility] Last Admin: 03/31/24 07:43 Dose: 50 mcg Documented By: OMER Fluticasone/Umeclidinium/Vilanterol (Fluticasone/Umeclidinium/Vilanterol 200/62.5/25 Blst.W.Dev) 1 puff INHALE RDAILY [facility] Last Admin: 03/31/24 07:51 Dose: 1 puff Documented By: HOA Vancomycin HCl 1,000 mg/ (Sodium Chloride) 270 mls @ 270 mls/hr IV Q24H [facility] Last Infusion: 03/30/24 18:28 Dose: Infused Documented By: GABY Magnesium Hydroxide (Milk Of Magnesia 30 Ml Oral.Susp) 30 ml PO DAILY PRN PRN Reason: Constipation Melatonin (Melatonin 3 Mg Tablet) 6 mg PO BEDTIME PRN PRN Reason: Insomnia Multivitamins/Vitamin C (Multivitamin Tablet) 1 tab PO DAILY [facility] Last Admin: 03/31/24 07:44 Dose: 1 tab Documented By: OMER Ondansetron HCl (Ondansetron Hcl 4 Mg/2 Ml Vial) 4 mg IVPUSH Q8H PRN PRN Reason: Nausea and Vomiting Pharmacy Consult (Consult Rx Vancomycin Dosing) 1 each MISCELLANE DAILY PRN PRN Reason: Consult order Sodium Chloride (0.9 % Sodium Chloride Flush 3 Ml Syringe) 3 ml IVFLUSH QSHIFT [facility] Last Admin: 03/31/24 09:14 Dose: 3 ml Documented By: GABY Labs 03/29/24 10:59 03/31/24 05:35 Labs: Laboratory Results - last 24 hr 03/31/24 05:35 Estim Creat Clear Calc 59.9 Estimated GFR > 60 Microbiology Microbiology Results: Microbiology 03/29/24 14:11 Blood Culture - Preliminary Blood - Venous No growth after 24 hours. 03/29/24 10:59 Blood Culture - Preliminary Blood - Venous No growth after 24 hours. Assessment and Plan (1) Left leg cellulitis: Status: Acute (2) Pain and swelling of left lower leg: Status: Acute (3) Leukocytosis: Status: Acute Plan 88-year-old male with a PMH significant for COPD, subclavian stenosis s/p stenting, HTN, CAD w/ hx of NSTEMI in 12/2016, s/p cardiac catheterization w/o stenting, current smoker , history of recent hospitalization to [facility] with diagnosis of acute hypoxic and hypercarbic respiratory failure and cardiogenic shock due to unstable narrow complex tachycardia underwent emergent cardioversion in ED due to unclear rhythm SVT versus AFib with RVR patient was loaded with amiodarone and was discharged home on Eliquis, was also noted to have type 2 demand ischemia treated empirically with 48 hours of Lovenox he was also noted to have chronic leukocytosis and thrombocytosis which was deemed chronic by key account manager and was 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 due to left lower extremity pain swelling likely due to left lower extremity cellulitis. Left lower extremity swelling pain Likely left leg cellulitis, no DVT, no sepsis IV vancomycin D2, knee x-ray showed small suprapatellar effusion keep leg elevated Follow blood cultures x2 neg x 24h Noted to have right like red streaking, nonblanching, question acute versus chronic patient not aware non tender CRP 1.95, follow CRP and ESR ID consult Recent history of Sustained SVT status post cardioversion Continue amiodarone 200 mg daily, was started on loading dose in January, continue Eliquis Echo showed EF 60 65% no wall motion abnormality, grade 1 mild diastolic dysfunction, chest x-ray showed chronic interstitial lung disease without acute abnormality Hold metoprolol and Lasix due to soft blood pressure and no evidence of chf Will consider lowering dose of metoprolol to 25 mg daily and Lasix 20 mg daily Mild chronic intermittent hyponatremia resolved COPD no acute exacerbation continue home inhalers. Chronic Leukocytosis History of ANDREA 2 positive myeloproliferative disorder CAD/HLD Continue statin Full Code DVT Prophylaxis: Eliquis Pt will require continued inpatient hospitalization for treatment of?left lower extremity cellulitis requiring IV antibiotics and expert consultation. Quality Stroke Does the patient have a stroke diagnosis?: No VTE Prior VTE?: No VTE Risk Level:: Medical - moderate - high VTE Device Contraindication: Treatment Not Indicated VTE Drug Contraindication: N/A - Med Ordered
--- NOTE | 2024-03-31 14:37 | MHC.CM.PN ---
EMR REVIEWED AND PER MD ROUNDS, PT HAS NOT NEEN MEDICALLY CLEARED FOR DC HOME. (IV ABT, ID CONSULT PENDING) CM WILL CONTINUE TO FOLLOW FOR ANY CHANGE TO DC PLAN/NEEDS.
[2024-03-31] MEDS: vancomycin HCL 1,000 MG in 0.9 % Sodium Chloride 250 ML 270 MG IV (16:07)
--- NOTE | 2024-03-31 16:32 | W.PM.IDCN ---
History of Present Illness Data of Consult Service Date: 03/31/24 Requesting physician: Joycelyn Downey Primary Care Provider: Stephanie Orr MD HPI Reason for consult: pain LLE, redness left He presents to ER on 2 with 2-3 days shortness of breath as well as LLE swelling with left posterior leg reported warm. He has no fever or chills He has ANDREA-2 myeloproliferative disorder as well as subclavian steal and COPD. He was started on Vancomycin. 2/3 blood cultures are negative. Review of Systems Review of Systems: Yes all other systems are reviewed and are negative [facility] Past Medical History Medical History Polycythemia Fracture High cholesterol HTN (hypertension) Heart attack Family History Family History Daughter Aortic aneurysm Family history: reviewed and not pertinent Surgical History Surgical History S/P angiogram of extremity Hx of rotator cuff surgery H/O arthroscopy of shoulder Social History Social History Household Members: Spouse and Family Housing: House Do you presently have visiting nurse or other home services: No Patient Tobacco Use Status: Current everyday Tobacco user Tobacco use type: Cigarette Cigarette Packs Per Day: 1 Smoked in Last 30 Days: Yes Patient Interested in Nicotine Replacement: No Patient Given Instructions on How to Stop Smoking: No Second Hand Smoke Exposure: No Use of substances other than those prescribed or required for medical reasons: No Currently Displaying Signs/Symptoms of Drug Intoxication Withdrawal: No Any prior treatment program specific to substance use: No Have you been hit, kicked, punched, or otherwise hurt by someone within the past year? If so, by whom?: No Do you feel safe in your current relationship?: Yes Is there a partner from a previous relationship who is making you feel unsafe now?: No Are you made to feel afraid or neglected: No Advance Directives: No Advance Directives Information Provided: Yes Do you have a plan to hurt others: No Plan Recently lost weight without trying: No Eating poorly because of decreased appetite: No Nutrition Risks: No Nutritional Risk Poor oral hygiene: No service: No Meds Allergies Allergy/AdvReac Type Severity Reaction Status Date / Time No Known Allergies Allergy Verified 03/29/24 10:22 [No Known Allergies*] Active Medications: Current Medications Acetaminophen (Acetaminophen 325 Mg Tablet) 650 mg PO Q6H PRN PRN Reason: Pain, Mild 1-3,fever,headache Last Admin: 03/30/24 19:33 Dose: 650 mg Albuterol Sulfate (Albuterol Sulfate (0.083%) 2.5 Mg/3 Ml Vial.Neb) 2.5 mg INHALE RTID [facility] Last Admin: 03/31/24 14:28 Dose: 2.5 mg Albuterol/Ipratropium (Albuterol/Iprat 2.5/0.5mg 3 Ml Ampul.Neb) 3 ml INHALE RQ4H WHILE AWAKE PRN PRN Reason: sob Amiodarone HCl (Amiodarone Hcl 200 Mg Tablet) 200 mg PO DAILY [facility] Last Admin: 03/31/24 07:46 Dose: 200 mg Apixaban (Apixaban 5 Mg Tablet) 5 mg PO BID [facility] Last Admin: 03/31/24 07:47 Dose: 5 mg Atorvastatin Calcium (Atorvastatin Calcium 20 Mg Tablet) 20 mg PO DAILY [facility] Last Admin: 03/31/24 07:46 Dose: 20 mg Benzonatate (Benzonatate 100 Mg Capsule) 100 mg PO TID PRN PRN Reason: Cough Last Admin: 03/30/24 22:34 Dose: 100 mg Calcium Carbonate (Calcium Carbonate 750 Mg Tab.Chew) 750 mg PO Q4H PRN PRN Reason: Heartburn Cyanocobalamin (Cyanocobalamin (Vitamin B-12) 100 Mcg Tablet) 50 mcg PO DAILY [facility] Last Admin: 03/31/24 07:43 Dose: 50 mcg Fluticasone/Umeclidinium/Vilanterol (Fluticasone/Umeclidinium/Vilanterol 200/62.5/25 Blst.W.Dev) 1 puff INHALE RDAILY [facility] Last Admin: 03/31/24 07:51 Dose: 1 puff Vancomycin HCl 1,000 mg/ (Sodium Chloride) 270 mls @ 270 mls/hr IV Q24H [facility] Last Admin: 03/31/24 16:07 Dose: 270 mls/hr Magnesium Hydroxide (Milk Of Magnesia 30 Ml Oral.Susp) 30 ml PO DAILY PRN PRN Reason: Constipation Melatonin (Melatonin 3 Mg Tablet) 6 mg PO BEDTIME PRN PRN Reason: Insomnia Multivitamins/Vitamin C (Multivitamin Tablet) 1 tab PO DAILY [facility] Last Admin: 03/31/24 07:44 Dose: 1 tab Ondansetron HCl (Ondansetron Hcl 4 Mg/2 Ml Vial) 4 mg IVPUSH Q8H PRN PRN Reason: Nausea and Vomiting Pharmacy Consult (Consult Rx Vancomycin Dosing) 1 each MISCELLANE DAILY PRN PRN Reason: Consult order Sodium Chloride (0.9 % Sodium Chloride Flush 3 Ml Syringe) 3 ml IVFLUSH QSHIFT [facility] Last Admin: 03/31/24 16:07 Dose: 3 ml Home Medications ?Medication ?Instructions ?Recorded ?Confirmed ?Last Taken ?Type atorvastatin 20 mg tablet 20 mg PO DAILY 02/22/20 03/29/24 02/13/24 09:00 History albuterol sulfate 2.5 mg/3 mL 2.5 mg inhalation TID 02/13/24 03/29/24 02/13/24 09:00 History (0.083 %) solution for nebulization cyanocobalamin (vitamin B-12) 50 50 mcg PO DAILY 02/13/24 03/29/24 02/13/24 09:00 History mcg tablet (Vitamin B-12) fluticasone fur. 200 mcg-umeclid 1 ea inhalation DAILY 02/13/24 03/29/24 02/13/24 09:00 History 62.5 mcg-vilant 25 mcg inhalat.powder (Trelegy Ellipta) furosemide 40 mg tablet 40 mg PO DAILY 02/13/24 03/29/24 02/13/24 09:00 History metoprolol succinate 50 mg 50 mg PO DAILY 02/13/24 03/29/24 02/13/24 09:00 History tablet,extended release 24 hr dplixvhureof-ssvhluaf-mvlvjc tablet 1 tab PO DAILY 02/13/24 03/29/24 02/13/24 09:00 History aspirin 81 mg chewable tablet 81 mg PO DAILY 03/30/24 03/30/24 Unknown History Physical Exam Vital Signs: Vital Signs: Last Vital Signs Temp 97.0 F 03/31/24 15:45 Pulse 82 03/31/24 15:45 Resp 18 03/31/24 15:45 BP 125/70 03/31/24 15:45 Pulse Ox 92 03/31/24 15:45 O2 Del Method Room Air 03/31/24 15:45 O2 Flow Rate 2 03/29/24 14:32 BMI result Body Mass Index 22.3 Const: General: cooperative HEENT: Head: Yes normal to inspection Face and sinus: Yes normal facial exam Mouth: Normal oral and palatal mucosa present Teeth and gingiva: dentition normal Eyes: General: appearance normal, both eyes and all related structures Pupils: Equal, round and reactive pupils present Resp: Effort & Inspection: normal respiratory effort Cardio: Rate: regular rate Rhythm: regular rhythm GI: Palpation (GI): Soft to palpation and nontender : General: Yes no CVA tenderness Back/Spine/Pelvis: Back: no CVA tenderness Skin: General skin exam: no rashes or lesions noted Neuro: General: moves all extremities Cranial nerves: Yes Equal, round and reactive pupils present Extrem: General: Yes normal to inspection Psych: Appearance: grossly normal Results Labs 03/29/24 10:59 03/31/24 05:35 Labs: BMP 03/31/24 05:35 Creatinine 0.85 Microbiology Microbiology Results: Microbiology 03/29/24 14:11 Blood - Venous Blood Culture - Preliminary No growth after 48 hours. 03/29/24 10:59 Blood - Venous Blood Culture - Preliminary No growth after 48 hours. Assessment and Plan (1) Left leg cellulitis: Status: Acute (2) COPD (chronic obstructive pulmonary disease): Status: Acute Plan Left leg cellulitis resolved. There is no tinea pedis. He has no allergies Possible staph or strep. Po Doxycycline for a week. Elevate legs to reduce swelling.
[2024-04-01] VITALS (7 sets, daily range): BP systolic 117–138; BP diastolic 57–72; PULSE 76–90; RESP 16–17; TEMP 36–36.6; O2SAT 88–93
[2024-04-01 06:28] LABS: C Reactive Protein 0.91 mg/dL (< or = 0.50); Estimated Glomerular Filt Rate > 60
[2024-04-01 07:22] LABS: Erythrocyte Sedimentation Rate 2 MM/HR (0-15)
[2024-04-01] MEDS: Fluticasone/Umeclidinium/Vilanterol 200/62.5/25 BLST.W.DEV 1 PUFF INHALE (08:02)
[2024-04-01] MEDS: Albuterol Sulfate (0.083%) 2.5 MG/3 ML VIAL.NEB INHALE ×2 (08:02→15:41)
[2024-04-01] MEDS: Acetaminophen 325 MG TABLET 650 MG PO (11:24)
[2024-04-01] MEDS: Apixaban 5 MG TABLET PO (11:25)
[2024-04-01] MEDS: Amiodarone HCL 200 MG TABLET PO (11:25)
[2024-04-01] MEDS: Atorvastatin Calcium 20 MG TABLET PO (11:25)
[2024-04-01] MEDS: Multivitamin TABLET 1 TAB PO (11:25)
[2024-04-01] MEDS: 0.9 % Sodium Chloride Flush 3 ML SYRINGE IVFLUSH (11:26)
--- NOTE | 2024-04-01 11:29 | MHC.CM.PN ---
IMM 03/30/24 Patient is medically cleared for discharge today. He will continue on PO Doxy. Patient is discharged home self care. He will transport via BLS due to unsteady gait, HIGH FALL RISK and currently SNOW/ICE storm.
--- NOTE | 2024-04-01 12:05 | P.DS_ITS ---
DS: Providers Provider Date of Service: 04/01/24 Date of admission: 03/29/24 16:03 Date of discharge: 04/01/24 Primary care physician: Stephanie Orr MD Consults: 03/30/24 13:04 Consult to Infectious Diseases Routine Consulting Provider: [facility] [place] [facility] Reason for consultation: left leg cellulitis/ Has provider been notified: No Attending physician on discharge: Cortez Brink Discharging clinician: Kylee Odell DS: Diagnosis Discharge Diagnosis (1) Left leg cellulitis: Status: Acute (2) COPD (chronic obstructive pulmonary disease): Status: Acute DS: Summary Hospital Course Hospital Course: From H&P on the day of admission 88-year-old gentleman with past medical history significant for COPD, subclavian stenosis status post stenting, hypertension, coronary artery disease with history of non ST elevation [place], history of active tobacco use disorder was discharged from [facility] on February 14 after requiring admission for acute hypoxic and hypercarbic respiratory failure and cardiogenic shock due to unstable narrow complex tachycardia underwent emergent cardioversion, was discharged home on amiodarone and Eliquis, patient also with known history of 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, presented today due to left lower extremity swelling and pain of 2 weeks' duration patient denies history of trauma, no fall, denies associated fever, no chills, no lightheadedness, no dizziness in the emergency room workup including venous duplex scan showed no DVT, sodium of 132 squamous CRP 1.95, lactic acid 1.7, WBC count of 30,000 chronically elevated patient afebrile with stable heart rate, chest x-ray showed no acute infiltrate due to significant left lower extremity swelling erythema and pain patient is being admitted to [facility] for treatment and evaluation of possible cellulitis. Left lower extremity swelling/pain Likely left leg cellulitis, no DVT, no sepsis. knee x-ray showed small suprapatellar effusion inititally treated with IV vancomycin, blood cultures x2 neg x 48h CRP trending down, ESR low. chronic leukocytosis. Seen by ID, recommends doxycycline for 7 days. Recent history of Sustained SVT status post cardioversion Continue amiodarone 200 mg daily, was started on loading dose in January, continue Eliquis Echo showed EF 60 65% no wall motion abnormality, grade 1 mild diastolic dysfunction, chest x-ray showed chronic interstitial lung disease without acute abnormality Initially metoprolol and Lasix were held due to soft blood pressure; no evidence of chf. Dose of Lasix decreased to 20 mg daily upon discharge Mild chronic intermittent hyponatremia resolved COPD no acute exacerbation continue home inhalers. Chronic Leukocytosis History of ANDREA 2 positive myeloproliferative disorder Time Attestation Discharge Coordination Time (in mins): 37 Quality: Safe Use of Opioids Does Pt have an Active Cancer Diagnosis on the Problem List?: No Quality: Stroke Does the patient have a stroke diagnosis?: No Physical Exam Vital Signs: Vital Signs: Last Vital Signs Temp 97.0 F 04/01/24 07:42 Pulse 78 04/01/24 11:33 Resp 16 04/01/24 08:04 BP 126/70 04/01/24 07:42 Pulse Ox 92 04/01/24 11:33 O2 Del Method Room Air 04/01/24 11:33 O2 Flow Rate 2 03/29/24 14:32 BMI result Body Mass Index 22.3 Const: General: cooperative, comfortable, alert and awake Nutritional Appearance: average body habitus Resp: Effort & Inspection: normal respiratory effort, able to speak in complete sentences, no respiratory distress and no use of accessory muscles Skin: Other: no significant erythema to legs Extrem: Other: mild edema left leg DS: Data Data Completed and Pending Completed studies during hospitalization [Text1]: Procedures Holiness of Cardiac Rhythm, Single (02/13/24) Labs on day of discharge: Laboratory Results - last 24 hr 04/01/24 05:32 ESR 2 Creatinine 0.82 Estim Creat Clear Calc 62.0 Estimated GFR > 60 C-Reactive Protein 0.91 H Preliminary micro results at discharge 03/29/24 14:11 Blood Culture - Preliminary Blood - Venous No growth after 48 hours. 03/29/24 10:59 Blood Culture - Preliminary Blood - Venous No growth after 48 hours. Discharge Plan Discharge Anticipated Discharge Date/Time: 04/01/24 12:24 Patient Disposition: Home, Self-Care Discharge Diagnosis: left leg cellulitis Referrals: Stephanie Orr MD [Primary Care Provider] - 1 Week Discharge Medications: New amiodarone 200 mg Tablet 200 mg PO DAILY Qty: 30 0RF doxycycline monohydrate 100 mg tablet 100 mg PO Q12H 7 Days Qty: 14 0RF Continued aspirin 81 mg Tablet,Chewable 81 mg PO DAILY albuterol sulfate 2.5 mg /3 mL (0.083 %) solution for nebulization 2.5 mg inhalation TID metoprolol succinate 50 mg tablet extended release 24 hr 50 mg PO DAILY Trelegy Ellipta 200-62.5-25 mcg blister with device 1 ea INHALATION DAILY Vitamin B-12 50 mcg Tablet 50 mcg PO DAILY dhpcnuethqhz-paaqspiy-zdwzng Tablet 1 tab PO DAILY apixaban 5 mg tablet 5 mg PO BID Qty: 180 0RF atorvastatin 20 mg tablet 20 mg PO DAILY Changed furosemide 40 mg tablet 20 mg PO DAILY 90 Days Qty: 45 0RF Discontinued amiodarone 200 mg Tablet 400 mg PO BID Qty: 96 0RF Rx Instructions: 400mg bid for 2 weeks, then decrease to 200mg daily Discharge Orders: Discharge Order (Routine); Ordered 04/01/24 Ordered By: Kylee Odell Activity on Discharge: As tolerated Stand Alone Forms: Patient Portal Discharge page Print Language: Mohawk Care Plan Goals: see below Health Concerns: left leg cellulitis Plan of Treatment: complete course of antibiotics as prescribed keep legs elevated should only be taking amiodorone 200 mg daily unless care coordinator has instructed otherwise decrease dose of lasix to 20 mg daily call to schedule follow up appointment with PCP Assessment: see discharge summary
[2024-04-01 15:42] LABS: Vancomycin Trough 7.9 mcg/mL (10.0-20.0)
--- NOTE | 2024-04-01 15:50 | HE.PHANOTE ---
Vancomycin Vancomycin trough low 7.9. Increasing dose to 1500 mg q24h. next level 04/02/24 @1500
--- NOTE | 2024-04-01 17:11 | P.PNIM_ITS ---
Subjective Subjective Date of Service: 04/01/24 Interval History: seen and examined this morning follow up for left leg cellulitis doing better was going to be discharged but when ambulance arrived o2 sat dropped with ambulation Review of Systems Review of Systems: Yes all other systems are reviewed and are negative Constitutional Constitutional: Denies chills and Denies fever(s) Cardiovascular Cardiovascular: Denies chest pain Physical Exam 2 Vital Signs: Vital Signs: Last Vital Signs Temp 97.4 F 04/01/24 16:34 Pulse 79 04/01/24 16:34 Resp 16 04/01/24 16:34 BP 129/68 04/01/24 16:34 Pulse Ox 93 04/01/24 16:34 O2 Del Method Room Air 04/01/24 16:34 O2 Flow Rate 2 03/29/24 14:32 BMI result Body Mass Index 22.3 Const: General: alert and awake Nutritional Appearance: average body habitus Resp: Effort & Inspection: no respiratory distress and no use of accessory muscles Cardio: Rate: regular rate GI: Palpation (GI): Soft to palpation Extrem: Other: no significant erythema of the left leg; minimal swelling Objective Data Active Medications Acetaminophen (Acetaminophen 325 Mg Tablet) 650 mg PO Q6H PRN PRN Reason: Pain, Mild 1-3,fever,headache Last Admin: 04/01/24 11:24 Dose: 650 mg Documented By: BELINDA Albuterol Sulfate (Albuterol Sulfate (0.083%) 2.5 Mg/3 Ml Vial.Neb) 2.5 mg INHALE RTID [facility] Last Admin: 04/01/24 15:41 Dose: 2.5 mg Documented By: HOA Albuterol/Ipratropium (Albuterol/Iprat 2.5/0.5mg 3 Ml Ampul.Neb) 3 ml INHALE RQ4H WHILE AWAKE PRN PRN Reason: sob Amiodarone HCl (Amiodarone Hcl 200 Mg Tablet) 200 mg PO DAILY [facility] Last Admin: 04/01/24 11:25 Dose: 200 mg Documented By: BELINDA Apixaban (Apixaban 5 Mg Tablet) 5 mg PO BID [facility] Last Admin: 04/01/24 11:25 Dose: 5 mg Documented By: BELINDA Atorvastatin Calcium (Atorvastatin Calcium 20 Mg Tablet) 20 mg PO DAILY [facility] Last Admin: 04/01/24 11:25 Dose: 20 mg Documented By: BELINDA Benzonatate (Benzonatate 100 Mg Capsule) 100 mg PO TID PRN PRN Reason: Cough Last Admin: 03/30/24 22:34 Dose: 100 mg Documented By: PURVI Calcium Carbonate (Calcium Carbonate 750 Mg Tab.Chew) 750 mg PO Q4H PRN PRN Reason: Heartburn Cyanocobalamin (Cyanocobalamin (Vitamin B-12) 100 Mcg Tablet) 50 mcg PO DAILY [facility] Last Admin: 04/01/24 14:48 Dose: Not Given Documented By: BELINDA Non-Admin Reason: Med Not Available Fluticasone/Umeclidinium/Vilanterol (Fluticasone/Umeclidinium/Vilanterol 200/62.5/25 Blst.W.Dev) 1 puff INHALE RDAILY [facility] Last Admin: 04/01/24 08:02 Dose: 1 puff Documented By: HOA Vancomycin HCl 1,500 mg/ (Sodium Chloride) 500 mls @ 333.333 mls/hr IV Q24H [facility] Magnesium Hydroxide (Milk Of Magnesia 30 Ml Oral.Susp) 30 ml PO DAILY PRN PRN Reason: Constipation Melatonin (Melatonin 3 Mg Tablet) 6 mg PO BEDTIME PRN PRN Reason: Insomnia Methylprednisolone Sodium Succinate (Methylprednisolone Sod Succ 40 Mg/Ml Vial) 40 mg IVPUSH Q12H [facility] Multivitamins/Vitamin C (Multivitamin Tablet) 1 tab PO DAILY [facility] Last Admin: 04/01/24 11:25 Dose: 1 tab Documented By: BELINDA Ondansetron HCl (Ondansetron Hcl 4 Mg/2 Ml Vial) 4 mg IVPUSH Q8H PRN PRN Reason: Nausea and Vomiting Pharmacy Consult (Consult Rx Vancomycin Dosing) 1 each MISCELLANE DAILY PRN PRN Reason: Consult order Sodium Chloride (0.9 % Sodium Chloride Flush 3 Ml Syringe) 3 ml IVFLUSH QSHIFT [facility] Last Admin: 04/01/24 16:32 Dose: Not Given Documented By: BELINDA Non-Admin Reason: No Access Labs 03/29/24 10:59 04/01/24 05:32 Labs: Laboratory Results - last 24 hr 04/01/24 04/01/24 05:32 14:57 ESR 2 Estim Creat Clear Calc 62.0 Estimated GFR > 60 C-Reactive Protein 0.91 H Vancomycin Trough 7.9 L Microbiology Microbiology Results: Microbiology 03/29/24 14:11 Blood Culture - Preliminary Blood - Venous No growth after 48 hours. 03/29/24 10:59 Blood Culture - Preliminary Blood - Venous No growth after 48 hours. Assessment and Plan (1) Left leg cellulitis: Status: Acute Plan 88-year-old male with a PMH significant for COPD, subclavian stenosis s/p stenting, HTN, CAD w/ hx of NSTEMI in 12/2016, s/p cardiac catheterization w/o stenting, current smoker , history of recent hospitalization to [facility] with diagnosis of acute hypoxic and hypercarbic respiratory failure and cardiogenic shock due to unstable narrow complex tachycardia underwent emergent cardioversion in ED due to unclear rhythm SVT versus AFib with RVR patient was loaded with amiodarone and was discharged home on Eliquis, was also noted to have type 2 demand ischemia treated empirically with 48 hours of Lovenox he was also noted to have chronic leukocytosis and thrombocytosis which was deemed chronic by software test technician and was diagnosed previously for ANDREA 2 positive myeloproliferative disorder patient presented today with 2 weeks of left lower extremity swelling and pain as well as left upper back pain of 1-2 weeks' duration, patient denies fall, no associated nausea vomiting, no fevers, no chills, in ED workup showed CRP 1.95 sodium 132 normal renal function, normal lactic acid, chest x-ray showed no acute abnormality, venous duplex left lower extremity showed no DVT, patient is now being admitted to [facility] due to left lower extremity pain swelling likely due to left lower extremity cellulitis. Left lower extremity swelling pain Likely left leg cellulitis, no DVT, no sepsis IV vancomycin D2, knee x-ray showed small suprapatellar effusion keep leg elevated Follow blood cultures x2 neg x 24h Noted to have right like red streaking, nonblanching, question acute versus chronic patient not aware non tender CRP 1.95, follow CRP and ESR ID consult- recommend po doxy x 1 week. acute copd exacerbation start iv solu medrol, breathing treatments pt evaluation, possible home o2 evaluation in am not currently requiring oxygen Recent history of Sustained SVT status post cardioversion Continue amiodarone 200 mg daily, was started on loading dose in January, continue Eliquis Echo showed EF 60 65% no wall motion abnormality, grade 1 mild diastolic dysfunction, chest x-ray showed chronic interstitial lung disease without acute abnormality Hold metoprolol and Lasix due to soft blood pressure and no evidence of chf Will consider lowering dose of metoprolol to 25 mg daily and Lasix 20 mg daily Mild chronic intermittent hyponatremia resolved Chronic Leukocytosis History of ANDREA 2 positive myeloproliferative disorder CAD/HLD Continue statin Full Code DVT Prophylaxis: Floweris Pt will require continued inpatient hospitalization for treatment of?left lower extremity cellulitis requiring IV antibiotics and expert consultation. Quality Stroke Does the patient have a stroke diagnosis?: No VTE Prior VTE?: No VTE Risk Level:: Medical - moderate - high VTE Device Contraindication: Treatment Not Indicated VTE Drug Contraindication: N/A - Med Ordered
--- NOTE | 2024-04-01 17:39 | PC.NURSE ---
Pt had an uneventful day with plan for discharge, EMS arrived for transport and pts vitals recorded at approx 1630 with no issues. This RN assisted pt in getting dressed and he developed a very pronounced exp wheeze with some increased wob. sats noted to be 88% for approx a minute before they returned to low 90's. Kylee Odell made aware and plan to keep pt and reassess in am. Pt notiied and stated he feels fine and wants very much to go home and states he is feeling good. Pt was ambulated approx 60 yards on room air with walker with sats maintained in low 90's. One very brief dip when pt stopped to ask where to go resolved when probe repositioned. household refrigerator mechanic and clin sup at nursing station also noted no acute distress and aware of situation. Kylee Odell again made aware and came down to assess patient. no further episodes noted and patient discharged via EMS.
== END 2024-04-01 17:39 | disposition home or self-care (01) | DRG 603 ==
LOC: HO.ED 16:45 → HO.EDOVER 16:48 → HO.S3 17:28
PROVIDERS: Admitting Provider Hospitalist; Emergency Provider Emergency Medicine; PCP Internal Medicine; Visit Provider Physician Assistant Medical
DX: L03.116 Cellulitis of left lower limb (principal); D47.1 Chronic myeloproliferative disease; E87.1 Hypo-osmolality and hyponatremia; F17.210 Nicotine dependence, cigarettes, uncomplicated; J44.9 Chronic obstructive pulmonary disease, unspecified; I25.10 Atherosclerotic heart disease of native coronary artery without angina pectoris; E78.5 Hyperlipidemia, unspecified; Z20.822 Contact with and (suspected) exposure to COVID-19; Z71.6 Tobacco abuse counseling; Z79.01 Long term (current) use of anticoagulants; Z79.82 Long term (current) use of aspirin; Z79.899 Other long term (current) drug therapy
CPT/HCPCS: 0241U; 36415; 71046; 73560; 80051; 80053; 80202; 82565; 82803; 83605; 83735; 83880; 84484; 85007; 85027; 85610; 85652; 85730; 86140; 87040; 93005; 93971; 94640; 99285; J3370

== ENCOUNTER → 2024-03-29 10:36 | Outpatient (BNV) | payer MEDICARE, MEDICAID, SELFPAY | PROVIDERS: Emergency Provider Emergency Medicine; PCP Internal Medicine; Visit Provider Internal Medicine Cardiovascular Disease | DX: I44.0 Atrioventricular block, first degree (principal); I44.4 Left anterior fascicular block; I25.2 Old myocardial infarction | CPT/HCPCS: 93010 ==

== ENCOUNTER → 2024-03-29 11:12 | Outpatient (BNV) | payer MEDICARE, SELFPAY | PROVIDERS: PCP Internal Medicine; Visit Provider Radiology Diagnostic Radiology | DX: R22.42 Localized swelling, mass and lump, left lower limb (principal); M79.605 Pain in left leg; J84.9 Interstitial pulmonary disease, unspecified; M17.12 Unilateral primary osteoarthritis, left knee | CPT/HCPCS: 71046; 73560; 93971 ==

== ENCOUNTER → 2024-03-29 16:03 | Outpatient (BNV) | payer MEDICARE, SELFPAY | PROVIDERS: Admitting Provider Hospitalist; Emergency Provider Emergency Medicine; PCP Internal Medicine; Visit Provider Hospitalist | DX: L03.116 Cellulitis of left lower limb (principal); J44.9 Chronic obstructive pulmonary disease, unspecified | CPT/HCPCS: 99223; 99232; 99239; 99499 ==

== ENCOUNTER 2024-04-24 06:15 | Inpatient (IN) | payer MEDICARE, OTHER, SELFPAY ==
[2024-04-24] VITALS (14 sets, daily range): BP systolic 90–168; BP diastolic 44–108; PULSE 59–82; RESP 18–28; TEMP 36.1–38.9; O2SAT 94–100; BMI 26.7; BMI 25.9
--- NOTE | ~2024-04-24 | US_ITS ---
CLINICAL HISTORY: Swelling Venous duplex ultrasound left lower extremity Comparison: US/SR - US VENOUS DUPLEX LE LT - 03/29/24 13:46 EST Findings: The visualized deep veins are fully compressible with normal Doppler color flow and spectral tracings. No popliteal cyst. IMPRESSION: 1. Negative for left lower extremity deep vein thrombosis. This document has been electronically signed by: Annabel Mercado MD on 04/24/2024 20:04:05
--- NOTE | ~2024-04-24 | XR_ITS ---
CLINICAL HISTORY: cough, fever 1 view chest x-ray Comparison: CR/UT/SR - XR CHEST 2V - 03/29/24 11:21 EST Findings: Patchy right lower lobe airspace density. Diffuse interstitial prominence. No effusion. No pneumothorax. Cardiac and mediastinal contours are stable. Old right-sided rib fractures noted IMPRESSION: Right lower lobe pneumonia superimposed upon chronic change. Follow-up recommended. This document has been electronically signed by: Melvin Iqbal MD on 04/24/2024 08:05:48
--- NOTE | ~2024-04-24 | CT_ITS ---
CLINICAL HISTORY: facial droop, slurred speech CT angiography head and neck with contrast. 3D Postprocessing. Comparison: CT/SR - CT HEAD/BRAIN WO IV CON - 04/24/24 08:[address]/REG/LA/SR - BRAIN WO IV CONTRAST [id number] - 03/14/19 15:35 EST Findings: CTA head: Reference axial image 282 and coronal image 66 of series 9, there is a focus of high density within or abutting a left M2 branch. This has been seen on multiple prior CTs. No large vessel occlusion, aneurysm or dissection. No abnormal postcontrast enhancement. CTA neck: Somewhat limited by motion artifact. Moderately severe atherosclerotic disease of the aorta. Severe stenosis, possible occlusion of the origin of the left subclavian artery. The right common, internal and external carotid arteries are patent, with heavy atherosclerotic disease of the bifurcation resulting in approximately 50% stenosis of the proximal right ICA and 75% stenosis of the origin of the right ECA. The right common, internal and external carotid arteries are patent, with heavy atherosclerotic disease of the bifurcation. There is significant tortuosity of the proximal ICA. Less than 50% stenosis suggested. Vertebral arteries are patent and codominant. Stenosis suggested at the origin of the left vertebral artery. No discrete thyroid lesion. Visualized lung apices demonstrate pleural thickening and chronic interstitial changes. Impression: No large vessel intracranial occlusion. Moderately severe atherosclerotic disease as detailed with internal carotid artery stenosis defined above. Additional incidental findings. This document has been electronically signed by: Melvin Iqbal MD on 04/24/2024 12:05:16
--- NOTE | ~2024-04-24 | CT_ITS ---
CLINICAL HISTORY: confusion CT head without contrast Comparison: CT/REG/CT/SR - BRAIN WO IV CONTRAST [id number] - 03/14/19 15:35 EST Findings: No evidence of acute territorial infarct. There is patchy low density in the periventricular and subcortical white matter. Diffuse volume loss is noted. No hydrocephalus. No hemorrhage, mass effect, mass lesion or midline shift. No abnormal extra-axial fluid. No calvarial fracture. Paranasal sinuses and mastoid air cells are clear. Impression: No evidence of acute process. Ischemic microangiopathy and diffuse volume loss. This document has been electronically signed by: Melvin Iqbal MD on 04/24/2024 09:02:13
--- OUTSIDE RECORDS SUMMARY | 2024-04-24 06:42 | XMS_ITS ---
Author Organization Aris Garzon III, MD Address [address] [place] [address] Care Team Providers Care Fire Control Officer Name Role Phone Dominga LÓPEZ, Stephanie Primary Care Provider Aris Jeffries [phone] REASON FOR VISIT follow up Encounters Encounter Location Date Provider Diagnosis Aris Garzon III, MD [address] [place] [address] [place] [address] 02/27/2024 Aris Garzon Plan Of Treatment No Information Progress Notes * Ketan SHELTONOB:1935 (88 yo M)Acc No.[id number]:02/27/2024 Progress Notes Patient:?Wyatt SHELTON Provider:?Aris Garzon MD :1935???Age:88 Y???Sex:Male Mati e:02/27/2024 Address:[address] [place], [place] [id number] Pcp:Stephanie Orr MD Subjective: * Chief Complaints: * ???1. Follow up. * Medical History:? Objective: * Vitals:? Assessment: Plan: * Treatment: * Images: * The named appointment provid er may or may not be the originator of this progress note, and it is not deemed complete until electronically signed by the appointment provider. Sign off status: Pending * Provider:?Aris Garzon MD Date:?04/2024 Generated for Caydeni ng/Fapaulg/eTransmitting on:?04/24/2024 06:42 AM EST
--- OUTSIDE RECORDS SUMMARY | 2024-04-24 06:42 | XMS_ITS | Encounter Summary ---
Author Organization [facility] Address [address] [place] [address] Care Team Providers Care Medical Diagnostic Radiographer Name Role Phone Stephanie Gillespie Primary Care Provider [phone] Encounter Details Date Type Department Care Team (Late st Contact Info) Description 04/28/2020 Orders Only [facility] 2 Rad ACT [address] [place] [address] Hernan Keen MD [address] [place] [address] Social History Tobacco Use Types Packs/Day Years [...] on filedocumented in this encounter Care Teams Medical Diagnostic Radiographer Relationship Specialty Start Date End Date Stephanie Gillespie [address] [address] PCP - General Internal Medicine 04/17/20 documented as of this encounter
--- OUTSIDE RECORDS SUMMARY | 2024-04-24 06:42 | XMS_ITS | Encounter Summary ---
Author Organization [facility] Address [address] [place] [address] Care Team Providers Care Industrial Maintenance Instructor Name Role Phone Stephanie Gillespie Primary Care Provider [phone] Encounter Details Date Type Department Care Team (Late st Contact Info) Description 05/09/2020 Orders Only [facility] 2 Rad ACT 1 [address] [place] [address] Hernan Keen MD [address] [place] [address] Social History Tobacco Use Types Packs/Day Years [...] on filedocumented in this encounter Care Teams Industrial Maintenance Instructor Relationship Specialty Start Date End Date Stephanie Gillespie [address] [address] PCP - General Internal Medicine 04/17/20 documented as of this encounter
--- OUTSIDE RECORDS SUMMARY | 2024-04-24 06:42 | XMS_ITS ---
Author Organization Aris Garzon III, MD Address [address] [place] [address] [place] [address] Care Team Providers Care Ophthalmic Surgical Assistant Name Role Phone Dominga LÓPEZ, [facility] Primary Care Provider Aris Jeffries [phone] Allergies Allergen (clinical drug ingredient) Drug/Non Drug Allergy documented on EMR Reaction Allergy Type Onset Date Status Bee Sting Unknown Allergy Active REASON FOR VISIT follow up Medications Medication SIG (Take, Route, Frequency, Duration) Notes Start Date End Date Status Furosemide 40 MG TAKE 1 TABLET BY SHO EVERY DAY Oral Active Plavix 75 MG 1 tablet Orally Once a day 07/04/2020 Active Cilostazol 50 MG 1 tablet 30 minutes before or 2 hours after breakfast and dinner Orally Twice a day 07/04/2020 Active Cyanocobalamin 1000 MCG 1 tablet Orally Once a day 11/03/2013 Active FLUoxetine HCl 10 MG TAKE 1 CAPSULE IN T HE MORNING ONCE A DAY ORALLY 30 DAY(S) Oral Active Nitroglycerin 0.4 MG 1 tablet under the tongue and allow to dissolve as needed Sublingual Once a day Active Aspirin 81 MG 1 tablet Orally Once a day Active Metoprolol Succinate ER 100 MG 1 tablet Orally Once a day Active Atorvastatin Calcium 20 MG 1 tablet Oral ly Once a day Active ProAir HFA 108 (90 Base) MCG/ACT 2 puffs as needed Inhalation every 4 hrs Active Lidoderm 5 % 1 patch remove after 12 hours Externally Once a day 10/15/2019 Active Social History Tobacco Use: Social History Observation Description Date Details (start date - stop date) Current Smoker NA - NA Tobacco Use/Smoking Question Answer Notes Patient is a current smoker How often do you smoke cigarettes? every day How many cigarettes a day do you smoke? 21-30 How soon after you wake up d o you smoke your first cigarette? 31-60 minutes Are you interested in quitting? Not ready to tiffanie t Additional Findings: Tobacco User Heavy cigarett e smoker (20-39 cigs/day) Encounters Encounter Location Date Provider Diagnosis Aris Garzon III, MD [address] [place] [address] [place] [address] 04/16/2024 Aris Garzon B12 deficiency E53.8 Assessments Encounter Date Diagnosis (ICD Code) Assessment Notes Treatment Notes Treatment Clinical Notes 04/16/2024 B12 deficiency (ICD-10 - E53.8) Comprehensive blood work is not available. It was ordered with a vitamin B12 level. He will continue on supplementation. Plan Of Treatment Medication Medication Name Sig Start Date Stop Date Notes Furosemide 40 MG TAKE 1 TABLET BY SHO TH EVERY DAY Oral Plavix 75 MG 1 tablet Orally Once a day 07/04/2020 Cilostazol 50 MG 1 tablet 30 minutes before or 2 hours after breakfast and dinner Orally Twice a day 07/04/2020 Cyanocobalamin 1000 MCG 1 tablet Orally Once a day 014 FLUoxetine HCl 10 MG TAKE 1 CAPSULE IN T HE MORNING ONCE A DAY ORALLY 30 DAY(S) Oral Nitroglycerin 0.4 MG 1 tablet under the tongue and allow to dissolve as needed Sublingual Once a day Aspirin 81 MG 1 tablet Orally Once a day Metoprolol Succinate ER 100 MG 1 tablet Orally Once a day Atorvastatin Calcium 20 MG 1 tablet Orally Once a day ProAir HFA 108 (90 Base) MCG/ACT 2 puffs as needed Inhalation every 4 hrs Lidoderm 5 % 1 patch remove after 12 hours Externally Once a day 10/15/2019 Progress Notes * Ketan SHELTONOB:1935 (88 yo M)Acc No.[id number]:04/16/2024 Progress Notes Patient:?Valentin SHELTONmarcellus Provider:?Aris Garzon MD :1935???Age:88 Y???Sex:Male Mati e:04/16/2024 Address:[address] [place] [address] MELANIE Mandujano [id number] Pcp:Stephanie Orr MD Subjective: * Chief Complaints: * ???1. Follow up. * HPI: ???COVID-19 Screening:?Questions?Have you had any new onset fever, chills, cough, congestion, sore throat, shortness of breath, muscle aches??No * ROS:?General/Constitutional:?pain?only normal aches and pains.?Chills?denies.?Fatigue?admits.?Fever?denies.?ENT:?Decreased hearing?denies.?Respiratory:?Cough?denies.?Cardiovascular:?Chest pain with exertion?denies.?Dyspnea on exertion?denies.?Shortness of breath?denies.?Gastrointestinal:?Constipation?denies.?Decreased appetite?denies.?Diarrhea?denies.?Heartburn?denies.?Nausea?denies.?Rectal bleeding?denies.?Vomiting?denies.?Hematology:?bruising?denies.?petechiae?denies.?Swollen glands?none have been noted.?Genitourinary:?Frequent urination?denies.?Musculoskeletal:?Muscle aches?denies.?Painful joints?denies.?Sciatica?denies.?Weakness?denies.?Skin:?Itching?denies.?Rash?denies.?Skin lesion(s)?denies.?Neurologic:?Difficulty speaking?denies.?Dizziness?denies.?Headache?denies.?Low back pain?denies.?Psychiatric:?Depressed mood?denies.? * Medical History:?COPD (chron ic obstructive pulmonary disease), ETOH abuse, CAD (coronary artery disease), Atrial tachycardia, Sessile colonic polyp, Diverticulosis of colon, Tobacco abuse disorder, Vitamin B 12 deficiency, Major depression, Macrocytosis, Hyperlipidemia, Bifascicular block, 1.7 cm nodular lesion medial right lower lobe December 2012, Rotator cuff tear right, Left arm erythromelalgia. * Surgical History:?colonoscop y sessile polyp. Dr. Westfall 2012, fracture right ankle , right rotator cuff surgery 03/1990, [facility] vein surgery 05/2020. * Hospitalization/Major Diagno stic Procedure:?Denies Past Hospitalization. * Family History:?Father: dece ased, Lung disease, diagnosed with CVD.?Mother: , Heart problems, diagnosed with CVD.?1 brother(s) , 2 sister(s) - healthy. 3 son(s) , 1 daughter(s) . .? His daughter has had vascular surgery. * Social History:?Tobacco Use:?Tobacco Use/Smoking?Patient is a?current smoker ?How often do you smoke cigarettes??every day ?How many cigarettes a day do you smoke??21-30 ?How soon after you wake up do you smoke your first cigarette??31-60 minutes ?Are you interested in quitting??Not ready to quit ?Additional Findings: Tobacco User?Heavy cigarette smoker (20-39 cigs/day) ???He has been for many years. He lives in [place], [place]. He is retired. He consumes about 20 cans of beer a week. * Medications:?Taking Lidoderm 5 % Patch 1 patch remove after 12 hours Externally Once a day , Taking Nitroglycerin 0.4 MG Tablet Sublingual 1 tablet under the tongue and allow to dissolve as needed Sublingual Once a day , Taking Aspirin 81 MG Tablet 1 tablet Orally Once a day , Taking Metoprolol Succinate ER 100 MG Tablet Extended Release 24 Hour 1 tablet Orally Once a day , Taking Atorvastatin Calcium 20 MG Tablet 1 tablet Orally Once a day , Taking ProAir HFA 108 (90 Base) MCG/ACT Aerosol Solution 2 puffs as needed Inhalation every 4 hrs , Taking FLUoxetine HCl 10 MG Capsule TAKE 1 CAPSULE IN THE MORNING ONCE A DAY ORALLY 30 DAY(S) Oral , Taking Cyanocobalamin 1000 MCG Tablet 1 tablet Orally Once a day , Taking Plavix 75 MG Tablet 1 tablet Orally Once a day , Taking Cilostazol 50 MG Tablet 1 tablet 30 minutes before or 2 hours after breakfast and dinner Orally Twice a day , Taking Furosemide 40 MG Tablet TAKE 1 TABLET BY MOUTH EVERY DAY Oral , Medication List reviewed and reconciled with the patient * Allergies:?Bee Sting. Objective: * Vitals:? * Examination: ???General Examination: ?GENERAL APPEARANCE:?pleasant, well nourished, well developed, in no acute distress, calm and relaxed.?HEAD:?atraumatic, normocephalic.?EYES:?eomi, perrla, anicteric, conjugate.?EARS:?normal.?NOSE:?septum intact.?ORAL CAVITY:?normal, unremarkable.?NECK/THYROID:?no jugular venous distention, no carotid bruit, thyroid normal.?LYMPH NODES:?no enlarged lymph nodes,spleen normal.?SKIN:?no suspicious lesions, anicteric.?HEART:?no clicks, gallops, murmurs, or rubs, regular rhythm, S1, S2 normal, no s3, or vascular bruits.?LUNGS:?clear to auscultation .?BREASTS:??no masses palpable bilaterally.?ABDOMEN:?bowel sounds normal, no ascites, no organomegaly, no mass.?RECTAL EXAM:?not examined.?MUSCULOSKELETAL:?extremities unremarkable, no clubbing, cyanosis or edema.?PERIPHERAL PULSES:?normal.?NEUROLOGIC:?alert and oriented, cranial nerves 2-12 grossly intact, deep tendon reflexes 2+ symmetrical, motor strength normal upper and lower extremities, sensory exam intact.?PSYCH:?alert, oriented.? Assessment: * Assessment: 1.?B12 deficiency - E53.8??? Notes :Comprehensive blood work is not available. It was ordered with a vitamin B12 level. He will continue on supplementation.??? Plan: * Treatment: * Images: * The named appointment provid er may or may not be the originator of this progress note, and it is not deemed complete until electronically signed by the appointment provider. Sign off status: Pending * Provider:?Aris Garzon MD Date:?03/28 Generated for Tee veloz/Shanell/Rodriitting on:?04/24/2024 06:42 AM EST History and Physical Notes * HPI (History of Present Illness) Category Sub-Category Detail Notes COVID-19 Screening Questions Have you had any new onset fever, chills, cough, congestion, sore throat, shortness of breath, muscle aches?: No Examination Category Sub-Category Detail Notes General Examination GENERAL APPEARANCE: pleasant , well nourished, well developed, in no acute distress, calm and relaxed HEAD: atraumatic, normocep halic EYES: eomi, perrla, anicte andreas, conjugate EARS: normal NOSE: septum intact NECK/THYROID: no jugular venous di stention, no carotid bruit, thyroid normal HEART: no clicks, gallops, murmurs, or rubs, regular rhythm, S1, S2 normal, no s3, or vascular bruits LUNGS: clear to auscultatio n ABDOMEN: bowel sounds normal, no ascites, no organomegaly, no mass NEUROLOGIC: alert and oriented, cranial nerves 2-12 grossly intact, deep tendon reflexes 2+ symmetrical, motor strength normal upper and lower extremities, sensory exam intact SKIN: no suspicious lesion s, anicteric PERIPHERAL PULSES: normal BREASTS: no masses palpable b ilaterally MUSCULOSKELETAL: extremities unremark able, no clubbing, cyanosis or edema LYMPH NODES: no enlarged lymph no brunilda,spleen normal RECTAL EXAM: not examined PSYCH: alert, oriented ORAL CAVITY: normal, unremarkable
--- OUTSIDE RECORDS SUMMARY | 2024-04-24 06:42 | XMS_ITS | Clinical Summary ---
Author Organization [facility] Address [address] [place] [address] Care Team Providers Care Residential Door Unit Installer Name Role Phone Stephanie Gillespie Primary Care Provider [phone] Allergies No known active allergies Medications atorvastatin [...] - 1-dose 75+ series) 08/30/2010 Pneumococcal Vaccine: 50+ Years (2 of 2 - PCV) 11/25/2015 11/24/2014 COVID-19 Vaccine (1 - 2023-2 5 season) 2023 Influenza Vaccine (#1) 2023 , 01/19/2017, 11/24/2014 Alcohol/Substance Use Screening 02/25/2024 Health Care Proxy Review 02/25/2024 Hepatitis B Vaccines Aged Out No long er eligible based on patient's age to complete this topic Medical Devices Implanted Type Area Bar Welder Device Identifier Shelf Expiration Date Model / Serial / Lot Patch Carotid Peripatch [id number] Xenosure - [id number] Implanted:Qty: 1 on 06/19/2020 by Bo Brooks MD at [facility] Implant Right: Grokori [employer] 02/20/2026 [id number] / / [id number] Description:Soaked in 500 ml of NACL for 2 mins prior to implanting. NACL lot # [id number]. Exp date April 2023 Stent Vascular Balloon Expandable [id number] Viabahn - [id number] - [id number] Implanted:Qty: 1 on 06/19/2020 by Bo Brooks MD at [facility] Stent Right: Groin W L GORE 09/21/2022 [id number] / [id number] / Description:iliac [place] [address] [address] Advance Directives * Full Code (Latest Code Status on File) Date Activated Date Inactivated Comments 06/19/2020 10:39 AM 06/20/2020 5:25 PM Care Teams Residential Door Unit Installer Relationship Specialty Start Date End Date Stephanie Gillespie [address] [address] PCP - General Internal Medicine 04/17/20
--- OUTSIDE RECORDS SUMMARY | 2024-04-24 06:42 | XMS_ITS | Referral Summary ---
Author Organization [facility] Address [address] [place] [address] Care Team Providers Care Health Sciences Program Coordinator Name Role Phone Stephanie Gillespie Primary Care Provider [phone] Allergies No known active allergies Medications atorvastatin [...] on file Medical Devices Implanted Type Area Radial Drill Press Operator For Plastic Device Identifier Shelf Expiration Date Model / Serial / Lot Patch Carotid Peripatch [id number] Xenosure - [id number] Implanted:Qty: 1 on 06/19/2020 by Bo Brooks MD at [facility] Implant Right: Groin LEMAITRE VASCULAR 02/20/2026 [id number] / / [id number] Description:Soaked in 500 ml of NACL for 2 mins prior to implanting. NACL lot # [id number]. Exp date April 2023 Stent Vascular Balloon Expandable [id number] Viabahn - [id number] - [id number] Implanted:Qty: 1 on 06/19/2020 by Bo Brooks MD at [facility] Stent Right: Sera GARVIN 09/21/2022 [id number] / [id number] / Description:iliac Insurance [facility] Advance Directives * Full Code (Latest Code Status on File) Date Activated Date Inactivated Comments 06/19/2020 10:39 AM 06/20/2020 5:25 PM Care Teams Health Sciences Program Coordinator Relationship Specialty Start Date End Date Stephanie Gillespie [address] [address] PCP - General Internal Medicine 04/17/20
--- OUTSIDE RECORDS SUMMARY | 2024-04-24 06:42 | XMS_ITS ---
Author Organization Aris Garzon III, MD Address [address] [place] [address] [place] [address] Care Team Providers Care Teamcenter Consultant Name Role Phone Dominga LÓPEZ, [facility] Primary Care Provider Aris Jeffries [phone] Allergies Allergen (clinical drug ingredient) Drug/Non Drug Allergy documented on EMR Reaction Allergy Type Onset Date Status Bee Sting Unknown Allergy Active REASON FOR VISIT follow up Medications Medication SIG (Take, Route, Frequency, Duration) Notes Start Date End Date Status FLUoxetine HCl 10 MG TAKE 1 CAPSULE IN T HE MORNING ONCE A DAY ORALLY 30 DAY(S) Oral Active Furosemide 40 MG TAKE 1 TABLET BY SHO TH EVERY DAY Oral Active Cilostazol 50 MG 1 tablet 30 minutes before or 2 hours after breakfast and dinner Orally Twice a day 07/04/2020 Active Plavix 75 MG 1 tablet Orally Once a day 07/04/2020 Active Cyanocobalamin 1000 MCG 1 tablet Orally Once a day 11/03/2013 Active ProAir HFA 108 (90 Base) MCG/ACT 2 puffs as needed Inhalation every 4 hrs Active Atorvastatin Calcium 20 MG 1 tablet Oral ly Once a day Active Metoprolol Succinate ER 100 MG 1 tablet Orally Once a day Active Aspirin 81 MG 1 tablet Orally Once a day Active Nitroglycerin 0.4 MG 1 tablet under the tongue and allow to dissolve as needed Sublingual Once a day Active Lidoderm 5 % 1 patch remove [...] Date Provider Diagnosis Aris Garzon III, MD [address] [place] [address] [place] [address] 11/27/2023 Aris Garzon B12 deficiency E53.8 Assessments Encounter Date Diagnosis (ICD Code) Assessment Notes Treatment Notes Treatment Clinical Notes 11/27/2023 B12 deficiency (ICD-10 - E53.8) Comprehensive blood work is not available. It was ordered with a vitamin B12 level. He will continue on supplementation. Plan Of Treatment Medication Medication Name Sig Start Date Stop Date Notes FLUoxetine HCl 10 MG TAKE 1 CAPSULE IN T HE MORNING ONCE A DAY ORALLY 30 DAY(S) Oral Furosemide 40 MG TAKE 1 TABLET BY SHO TH EVERY DAY Oral Cilostazol 50 MG 1 tablet 30 minutes before or 2 hours after breakfast and dinner Orally Twice a day 07/04/2020 Plavix 75 MG 1 tablet Orally Once a day 07/04/2020 Cyanocobalamin 1000 MCG 1 tablet Orally Once a day 014 ProAir HFA 108 (90 Base) MCG/ACT 2 puffs as needed Inhalation every 4 hrs Atorvastatin Calcium 20 MG 1 tablet Orally Once a day Metoprolol Succinate ER 100 MG 1 tablet Orally Once a day Aspirin 81 MG 1 tablet Orally Once a day Nitroglycerin 0.4 MG 1 tablet under the tongue and allow to dissolve as needed Sublingual Once a day Lidoderm 5 % 1 patch remove after 12 hours Externally Once a day 10/15/2019 Progress Notes * Ketan SHELTONOB:1935 (88 yo M)Acc No.[id number]:11/27/2023 Progress Notes Patient:?Valentin SHELTONmarcellus Provider:?Aris Garzon MD :1935???Age:88 Y???Sex:Male Mati e:11/27/2023 Address:[address] [place] [address] MELANIE Mandujano [id number] Pcp:Stephanie Orr MD Subjective: * Chief Complaints: * ???1. Follow up. * HPI: ???COVID-19 Screening:?Questions?Have you had any new onset fever, chills, cough, congestion, sore throat, shortness of breath, muscle aches??No ?Have you been exposed to the virus within the last 10 days??No ?Have you travelled internationally in the last 10 days??No ?Have you been exposed to COVID-19 in the past??No * ROS:?General/Constitutional:?pain?only normal aches and pains.?Chills?denies.?Fatigue?admits.?Fever?denies.?ENT:?Decreased hearing?denies.?Respiratory:?Cough?denies.?Cardiovascular:?Chest [...] ankle , right rotator cuff surgery 03/1990, [facility] vein surgery 05/2020. * Hospitalization/Major Diagno stic [...] been for many years. He lives in [place], [place]. He is retired. He consumes about [...] off status: Pending * Provider:?Aris Garzon MD Date:?04/2023 Generated for Tee veloz/Shanell/Tyshawn on:?04/24/2024 06:42 AM EST History and Physical Notes * HPI (History of Present Illness) Category Sub-Category Detail Notes COVID-19 Screening Questions Have you had any new onset fever, chills, cough, congestion, sore throat, shortness of breath, muscle aches?: No Have you been exposed to the virus withi n the last 10 days?: No Have you travelled internationally in e last 10 days?: No Have you been exposed to COVID-19 in the past?: No Examination Category Sub-Category Detail Notes General [...]
--- OUTSIDE RECORDS SUMMARY | 2024-04-24 06:43 | XMS_ITS | Patient Health Record ---
Author Organization Aris Garzon III, MD Address [address] [place] [address] Care Team Providers Care Vocational Psychologist Name Role Phone Dominga LÓPEZ, [facility] Primary Care Provider Aris Jeffries Unavailable [phone] Allergies Allergen (clinical drug ingredient) Drug/Non Drug Allergy documented on EMR Reaction Allergy Type Onset Date Status Bee Sting Unknown Allergy Active Reason For Referral No Information Medications Medication SIG (Take, Route, Frequency, Duration) Notes Start Date End Date Status Furosemide 40 MG TAKE 1 TABLET BY SHO EVERY DAY Oral Active Lidoderm 5 % 1 patch remove after 12 hours Externally Once a day 10/15/2019 Active Nitroglycerin 0.4 MG 1 tablet under the tongue and allow to dissolve as needed Sublingual Once a day Active Aspirin 81 MG 1 tablet Orally Once a day Active Plavix 75 MG 1 tablet Orally Once a day 07/04/2020 Active Cilostazol 50 MG 1 tablet 30 minutes before or 2 hours after breakfast and dinner Orally Twice a day 07/04/2020 Active Cyanocobalamin 1000 MCG 1 tablet Orally Once a day 11/03/2013 Active Metoprolol Succinate ER 100 MG 1 tablet Orally Once a day Active Atorvastatin Calcium 20 MG 1 tablet Oral ly Once a day Active ProAir HFA 108 (90 Base) MCG/ACT 2 puffs as needed Inhalation every 4 hrs Active FLUoxetine HCl 10 MG TAKE 1 CAPSULE IN T MORNING ONCE A DAY ORALLY 30 DAY(S) Oral Active Immunizations Vaccine Route Administration Date Status Comme nts Influenza, quad IM Intramuscular 02/03/2020 Administered Influenza, quad IM Intramuscular 12/15/2020 Administered COVID- 19 Vaccine Unknown 05/21/2021 Administered COVID- 19 Vaccine Unknown 04/23/2021 Administered Influenza, quad IM Intramuscular 12/25/2021 Administered Influenza, quad IM Intramuscular 03/26/2023 Administered PPV 23 Unknown 11/24/2014 Administered Social History Tobacco Use: Social History Observation [...] User Heavy cigarett e smoker (20-39 cigs/day) Problems Problem Type SNOMED Code ICD Code Onset Dates Problem Status W/U Status Risk Notes Problem 37098476 Hyperlipidemia (E78.5) Active confirmed Comprehensive bloodwork with a fasting profile has been ordered. These will be forwarded to primary care. Problem Polycythemia vera (949759286) Polycythemia vera (D45) Active confirmed He has been well controlled without need for aggressive treatment. Compressive blood work has been ordered to be done in the next few days. Problem 127306153 B12 deficiency (E53.8) Active confirmed Comprehensive blood work is not available. It was ordered with a vitamin B12 level. He will continue on supplementation . 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 I offered to do so today but he declined wanting to stay on the current dose. Problem 92011280 Coronary artery disease (I25.10) Active confirmed He denies a ny recent angina and has had no hospitalization s. He has been compliant wwith his medication. Problem 00215250 Tobacco dependence (F17.200) Active confirmed I strongly encourage smoking cessation. We have discussed several strategies for this. He continues to smoke up packages of cigarettes daily. Problem 010480478 Major depression (F32.9) Active confirmed He is no longer depressed and says he feels well. However, he has missed several appointments, which is a long-standing pattern with him and his family. Problem 62115149 COPD (chronic obstructive pulmonary disease) (J44.9) Active confirmed He is breat cielo room air comfortably. He spoke with me on the phone at length. He was continuing her current medications. I strongly recommended smoking cessation. Problem 865422782 Pulmonary nodule (R91.1) Active confirmed Problem 84009226 Colonic polyp (K63.5) Active confirmed Problem 760788808 Peripheral arterial disease (I73.9) Active confirmed 2 weeks ago, he had vascular surgery to reverse mass to the office on the right groin for occlusive disease. He now has what appears to be a deep venous thrombosis right lower extremity below the knee. He was sent for an ultrasound of the emergency room. Problem 390760568 Macrocytosis (D75.89) Active confirmed Compprehensive blood work witth a CBC has been ordered. Problem 416382670 Rotator cuff tea r (M75.100) Active confirmed The PSA has fallen from 5.9-3.0. If we'll be followed carefully without treatment. Problem 368623286 Atrial tachycardia (I47.1) Active confirmed He denies any episodes of tachycardia recently. He controlled sinus rhythm today. Problem Benign prostatic hypertrophy without outflow obstruction (450287143) Benign prostatic hyperplasia, unspecified whether lower urinary tract symptoms present (N40.0) Active confirmed His prostatism is stable twice a night. We reviewed lifestyle modifications accordingly made to reduce nocturia. Plan Of Treatment Pending Test Test Name Order Date PROFILE, FASTING (COMPREHENSIVE METABOLI C) 06/24/2022 PROFILE, FASTING (COMPREHENSIVE METABOLI C) 03/26/2023 PROFILE, RANDOM (COMPREHENSIVE METABOLIC ) 03/23/2021 PROFILE, RANDOM (COMPREHENSIVE METABOLIC ) 12/15/2020 PROFILE, RANDOM (COMPREHENSIVE METABOLIC ) 02/03/2020 PROFILE, RANDOM (COMPREHENSIVE METABOLIC ) 09/15/2020 PROFILE, RANDOM (COMPREHENSIVE METABOLIC ) 07/12/2019 PROFILE, RANDOM (COMPREHENSIVE METABOLIC ) 07/12/2021 PROFILE, RANDOM (COMPREHENSIVE METABOLIC ) 07/04/2020 FERRITIN 07/12/2021 VITAMIN B12 AND FOLATE 07/04/2020 VITAMIN B12 AND FOLATE 03/23/2021 VITAMIN B12 AND FOLATE 09/15/2020 B12 07/12/2021 B12 12/15/2020 B12 02/03/2020 B12 07/12/2019 B12 06/24/2022 PSA, TOTAL 06/24/2022 PSA, TOTAL 03/23/2021 PSA, TOTAL 12/15/2020 PSA, TOTAL 09/15/2020 PSA, TOTAL 03/26/2023 PSA, TOTAL 07/12/2019 CBC w DIFF 09/15/2020 CBC w DIFF 07/12/2019 CBC w DIFF 06/24/2022 CBC w DIFF 10/21/2019 CBC w DIFF 07/04/2020 CBC w DIFF 05/05/2019 CBC w DIFF 07/12/2021 CBC w DIFF 03/23/2021 CBC w DIFF 02/03/2020 CBC w DIFF 12/15/2020 SED RATE (ESR) 03/26/2023 ALPHA-FETOPROTEIN,TUMOR MARKER CBC WITH AUTO DIFF 03/26/2023 Ferritin 03/26/2023 Ferritin 12/15/2020 Lipid Panel 06/24/2022 Lipid Panel 03/26/2023 Vitamin B12 03/26/2023 CT lung screening 06/24/2022 Insurance Providers Payer Name Payer Address Payer Phone Subscriber Number Group Number Insured Name Patient Relationship to Insured Coverage Start Date Coverage End Date [employer] [address] [place] [address] [id number] Wyatt Shelton Self - patient is the insured MEDICARE NGS [address] [place] [phone] [id number] Wyatt Shelton Self - patient is the insured Medical (General) History Medical History History ICD Code COPD (chronic obstructive pulmonary dise ase) 496 ETOH abuse 305.00 CAD (coronary artery disease) 414.9 Atrial tachycardia 427.89 Sessile colonic polyp 211.3 Diverticulosis of colon 562.10 Tobacco abuse disorder 305.1 Vitamin B 12 deficiency 266.2 Major depression 296.20 Macrocytosis 289.89 hyperlipidemia bifascicular block 1.7 cm nodular lesion medial right lower lobe December 2012 rotator cuff tear right left arm erythromelalgia Surgical History Surgery Date(Month/Year) [facility] vein surgery 05/2020 right rotator cuff surgery 03/1990 fracture right ankle colonoscopy sessile polyp. Dr. Westfall 20 13
--- NOTE | 2024-04-24 06:46 | PC.NURSE ---
Pt 02 sat @ 86 on arrival. Provider Eddi notified and aware. RT notified and aware. Pt placed on 2L 02 now sat 94 Plan of care ongoing
--- NOTE | 2024-04-24 07:03 | ED.WEAKNESS ---
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 The RN and myself are unclear when this started. He is febrile, weak appearing with cough and audible wheezes. We have no other history. MD Complaint: generalized weakness Onset (ago): unknown Duration: constant Location: generalized Migration: none Severity: severe Relieving factors: none Exacerbating factors: movement Context: recent illness Associated symptoms: denies other symptoms Related Data Home Medications ?Medication ?Instructions ?Recorded ?Confirmed atorvastatin 20 mg tablet 20 mg PO DAILY 02/22/20 03/29/24 albuterol sulfate 2.5 mg/3 mL 2.5 mg inhalation TID 02/13/24 03/29/24 (0.083 %) solution for nebulization cyanocobalamin (vitamin B-12) 50 50 mcg PO DAILY 02/13/24 03/29/24 mcg tablet (Vitamin B-12) fluticasone fur. 200 mcg-umeclid 1 ea inhalation DAILY 02/13/24 03/29/24 62.5 mcg-vilant 25 mcg inhalat.powder (Trelegy Ellipta) metoprolol succinate 50 mg 50 mg PO DAILY 02/13/24 03/29/24 tablet,extended release 24 hr ulevgcixnfqs-xfzdupeg-kcmtve tablet 1 tab PO DAILY 02/13/24 03/29/24 aspirin 81 mg chewable tablet 81 mg PO DAILY 03/30/24 03/30/24 Previous Rx's ?Medication ?Instructions ?Recorded apixaban 5 mg tablet 5 mg PO BID #180 tabs 02/15/24 amiodarone 200 mg tablet 200 mg PO DAILY #30 tabs 04/01/24 doxycycline monohydrate 100 mg 100 mg PO Q12H 7 days #14 tabs 04/01/24 tablet furosemide 40 mg tablet 20 mg (1/2 x 40 mg) PO DAILY 90 04/01/24 days #45 tabs Allergies Allergy/AdvReac Type Severity Reaction Status Date / Time No Known Allergies Allergy Verified 04/24/24 06:23 [No Known Allergies*] Review of Systems Review of Systems: ROS unable to be obtained due to altered mental status [facility] Past Medical History Attestation statement: The following information was validated with the patient. Source: old records reviewed Medical History COPD (chronic obstructive pulmonary disease) Leukocytosis Polycythemia Fracture High cholesterol HTN (hypertension) Heart attack Surgical History S/P angiogram of extremity Hx of rotator cuff surgery H/O arthroscopy of shoulder Family History Family History Daughter Aortic aneurysm Social History Social History Household Members: Spouse and Family Housing: House Do you presently have visiting nurse or other home services: No Patient Tobacco Use Status: Current everyday Tobacco user Tobacco use type: Cigarette Cigarette Packs Per Day: 1 Second Hand Smoke Exposure: No Advance Directives: No Advance Directives Information Provided: Yes service: No Physical Exam Vital Signs: Vital Signs: Last Vital Signs Temp 100.2 F 04/24/24 10:13 Pulse 62 04/24/24 11:23 Resp 22 H 04/24/24 11:23 BP 105/53 L 04/24/24 11:23 Pulse Ox 100 04/24/24 11:23 O2 Del Method Oxymask 04/24/24 11:23 O2 Flow Rate 4 04/24/24 11:23 Oxygen Flow Rate 2 04/24/24 06:21 BMI result Body Mass Index 26.7 Appearance: Alert but ill and weak appearing confused. mild acute distress. Eyes: Pupils equal, round and reactive to light. ENT: Pharynx normal dry MM Neck: Normal inspection. Neck supple. CVS: Normal heart rate and rhythm. Pulses normal. Respiratory: Mod respiratory distress - tachypnea and retractions. Breath sounds audible wheezes throughout increased respiratory rate Abdomen: Soft and nontender. Skin: Skin warm and dry. Normal skin color. Normal skin turgor. Extremities: L left swelling and redness anterior chin swelling around the ankle as well warm to touch Neuro: slurred speech, L sided lower facial droop, confused NIH Stroke Scale Internal: Initial- Upon Arrival Level of Consciousness: Not Alert; but arousable by minor stimulation Level of Consciousness Questions: Answers neither question correctly Level of Consciousness Commands: Performs one task correctly Best Gaze: Normal Visual: No visual loss Facial Palsy: Minor paralyis Motor Arm (Right): No drift Motor Arm (Left): No drift Motor Leg (Right): No drift Motor Leg (Left): No drift Limb Ataxia: Absent Sensory: Normal Best Language: Mild to moderate aphasia Dysarthia: Mild to moderate dysarthria Extinction and Inattention: Visual, tactile, auditory, spatial, or personal inattention Score: 8 Course Course Course Narrative: son notes that the patient became altered at 6am they did not notice facial droop or his speech but the patient does not have his dentures no trauma reported Medications Administered Discontinued Medications Generic Name Dose Route Start Last Admin Trade Name Sissy PRN Reason Stop Dose Admin Ceftriaxone Sodium 2 gm 04/24/24 07:12 04/24/24 07:32 Ceftriaxone Sodium 2 Gm Vial IVPUSH 04/24/24 07:13 2 gm ONCE ONE Administration Albuterol Sulfate 2.5 mg/ 0 mg 04/24/24 07:31 04/24/24 07:40 Albuterol/Ipratropium 3 ml INHALE 04/24/24 07:32 5 dose ONCE ONE Administration Acetaminophen 1,000 mg in 100 mls @ 400 mls/hr 04/24/24 07:12 04/24/24 07:47 Ofirmev IV 04/24/24 07:26 Infused ONCE ONE Infusion Lactated Ringer's 2,181 mls @ 2,181 mls/hr 04/24/24 07:12 04/24/24 08:32 Lr 30 ml/kg infuse over 1 hr (2181 ml) 04/24/24 08:11 Infused IV Infusion .Q1H ONE Vancomycin HCl 1,000 mg/ 535 mls @ 267.5 mls/hr 04/24/24 08:08 04/24/24 08:53 Vancomycin HCl 750 mg/ Sodium IV 04/24/24 10:07 267.5 mls/hr Chloride ONCE ONE Administration Albumin Human 100 mls @ 133.333 mls/hr 04/24/24 09:45 04/24/24 11:19 Kedbumin 25 % IV 04/24/24 11:29 133.33 mls/hr Q1H CEE Administration Iohexol 70 ml 04/24/24 11:28 04/24/24 11:28 Iohexol 350 Mg/Ml 100 Ml Infus..Btl IV 04/24/24 11:29 70 ml ONCE ONE Administration Methylprednisolone Sodium Succinate 60 mg 04/24/24 07:12 04/24/24 07:31 Methylprednisolone Sod Succ 125 Mg/2 Ml Vial IVPUSH 04/24/24 07:13 60 mg ONCE ONE Administration Medical Decision Making Medical Decision Making [facility] [place] Narrative: 88 yo male with PMH COPD, HTN, CAD with NSTEMI, respiratory failure, 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 I am going to start a sepsis protocol, nebs, IV steroids given COPD and wheezing, empiric abx, IVF 30cc/kg bolus, CXR and CT head for stroke/ICH. Planned admit Differential Diagnosis Differential Diagnoses: The differential diagnosis associated with the presentation includes cellulitis, UTI, pneumonia, stroke, ICH, viral syndrome Admission/Observation Consideration of admission/observation: Escalation of care including admission/observation considered admit for hypoxia BP did improve given abx, steroids, nebs his speech has improved, his L facial droop is gone Consult Healthcare Provider Management of the patient was discussed with: Hospitalist (will admit) Lab Data [facility] [place] Lab Attestation statement: I reviewed the patient's lab results. 04/24/24 07:28 04/24/24 07:28 Labs: Lab Results 04/24/24 04/24/24 04/24/24 Range/Units 07:28 07:53 09:55 WBC 22.8 H (4.8-10.8) X10*3/uL RBC 7.07 H (4.60-5.80) X10*6/uL Hgb 11.5 L (14.0-18.0) g/dl Hct 40.8 L (42.0-52.0) % MCV 57.7 L (80.0-98.0) fL MCH 16.3 L (27.0-33.0) pg MCHC 28.2 L (31.0-36.0) g/dl RDW 28.5 H (11.0-16.0) % Plt Count 187 D (160-400) X10*3/uL MPV Not Reportable Immature Gran % (Auto) 0.8 H (0.0-0.4) % Neut % (Auto) 79.1 H (45-73) % Lymph % (Auto) 4.5 L (20-40) % [place] % (Auto) 6.0 (2-11) % Eos % (Auto) 9.0 H (0-4) % Baso % (Auto) 0.6 (0-2) % Lymph # (Auto) 1.0 L (1.2-4.9) X10*3/uL [place] # (Auto) 1.4 H (0.1-1.2) X10*3/uL Eos # (Auto) 2.0 H (0.0-0.4) X10*3/uL Baso # (Auto) 0.1 (0.0-0.2) X10*3/uL Abs Immat Gran (auto) 0.19 H (0.00-0.03) X10*3/uL Absolute Neuts (auto) 18.0 H (2.0-8.3) x10*3/uL Absolute Nucleated RBC 0.050 H (0.0-0.012) X10*3/uL Nucleated RBC % (auto) 0.2 (0.0-0.2) /100WBC Smear Tech's Comments VERIFIED Hold Purple Top Cancelled Hold Blue Top SEE NOTE VBG pH (7.32-7.43) VBG pCO2 mmHg VBG pO2 mmHg VBG HCO3 (22-26) mmol/L VBG O2 Saturation % VBG Base Excess mmol/L Sodium 138 (135-145) mmol/L Potassium 3.9 (3.3-5.1) mmol/L Chloride 102 (96-108) mmol/L Carbon Dioxide 24 (22-29) mmol/L Anion Gap 16 (12-20) BUN 17 H (9-16) mg/dL Creatinine 1.51 H (0.5-1.4) mg/dL Estim Creat Clear Calc 29.4 Estimated GFR 44 Random Glucose 75 (60-115) mg/dL Lactic Acid 2.1 H* (0.5-2.0) mmol/L Lactic Acid F/U @ 2Hr 2.1 H* (0.5-2.0) mmol/L Calcium 9.0 (8.4-10.2) mg/dL Magnesium 2.0 (1.6-2.6) mg/dL Total Bilirubin 0.5 (0.0-1.0) mg/dL Direct Bilirubin 0.2 (0.0-0.5) mg/dL AST 54 H (5-37) U/L ALT 20 (0-40) U/L Alkaline Phosphatase 113 (39-117) U/L Troponin I High Sens 20.7 D (<3.5-35.0) ng/L C-Reactive Protein 0.50 (< or = 0.50) mg/dL B-Natriuretic Peptide 223 H (<100) pg/mL Total Protein 7.5 (6.5-8.0) g/dL Albumin 3.8 (3.5-5.0) g/dL Lipase 16 (8-78) U/L Procalcitonin 0.09 ng/mL Hold Green Top See Note Urine Color Yellow Urine Appearance Clear Urine pH 7.0 (5.0-9.0) Ur Specific [place] 1.010 (1.005-1.025) Urine Protein Negative (Neg-Trace) mg/dL Urine Glucose (UA) Negative (Negative) mg/dL Urine Ketones Negative (Negative) mg/dL Urine Blood Negative (Negative) Urine Nitrite Negative (Negative) Ur Leukocyte Esterase Trace H (Negative) Urine RBC 0-2 (0-2) /HPF Urine WBC 0-5 (0-5) /HPF Ur Squamous Epith Cells 0-2 (0-2) /HPF Urine Bacteria None Seen (None Seen) Hyaline Casts 0-2 (0-2) /LPF Influenza Type A (PCR) NEGATIVE (Negative) Influenza Type B (PCR) NEGATIVE (Negative) RSV RNA Qual (PCR) NEGATIVE (Negative) SARS-CoV-2 RNA (RT-PCR) NEGATIVE (Negative) 04/24/24 Range/Units 10:32 WBC (4.8-10.8) X10*3/uL RBC (4.60-5.80) X10*6/uL Hgb (14.0-18.0) g/dl Hct (42.0-52.0) % MCV (80.0-98.0) fL MCH (27.0-33.0) pg MCHC (31.0-36.0) g/dl RDW (11.0-16.0) % Plt Count (160-400) X10*3/uL MPV Immature Gran % (Auto) (0.0-0.4) % Neut % (Auto) (45-73) % Lymph % (Auto) (20-40) % [place] % (Auto) (2-11) % Eos % (Auto) (0-4) % Baso % (Auto) (0-2) % Lymph # (Auto) (1.2-4.9) X10*3/uL [place] # (Auto) (0.1-1.2) X10*3/uL Eos # (Auto) (0.0-0.4) X10*3/uL Baso # (Auto) (0.0-0.2) X10*3/uL Abs Immat Gran (auto) (0.00-0.03) X10*3/uL Absolute Neuts (auto) (2.0-8.3) x10*3/uL Absolute Nucleated RBC (0.0-0.012) X10*3/uL Nucleated RBC % (auto) (0.0-0.2) /100WBC Smear Tech's Comments Hold Purple Top Hold Blue Top VBG pH 7.56 H (7.32-7.43) VBG pCO2 43 mmHg VBG pO2 49 mmHg VBG HCO3 39 H (22-26) mmol/L VBG O2 Saturation 79.0 % VBG Base Excess 15.2 mmol/L Sodium (135-145) mmol/L Potassium (3.3-5.1) mmol/L Chloride (96-108) mmol/L Carbon Dioxide (22-29) mmol/L Anion Gap (12-20) BUN (9-16) mg/dL Creatinine (0.5-1.4) mg/dL Estim Creat Clear Calc Estimated GFR Random Glucose (60-115) mg/dL Lactic Acid (0.5-2.0) mmol/L Lactic Acid F/U @ 2Hr (0.5-2.0) mmol/L Calcium (8.4-10.2) mg/dL Magnesium (1.6-2.6) mg/dL Total Bilirubin (0.0-1.0) mg/dL Direct Bilirubin (0.0-0.5) mg/dL AST (5-37) U/L ALT (0-40) U/L Alkaline Phosphatase (39-117) U/L Troponin I High Sens (<3.5-35.0) ng/L C-Reactive Protein (< or = 0.50) mg/dL B-Natriuretic Peptide (<100) pg/mL Total Protein (6.5-8.0) g/dL Albumin (3.5-5.0) g/dL Lipase (8-78) U/L Procalcitonin ng/mL Hold Green Top Urine Color Urine Appearance Urine pH (5.0-9.0) Ur Specific [place] (1.005-1.025) Urine Protein (Neg-Trace) mg/dL Urine Glucose (UA) (Negative) mg/dL Urine Ketones (Negative) mg/dL Urine Blood (Negative) Urine Nitrite (Negative) Ur Leukocyte Esterase (Negative) Urine RBC (0-2) /HPF Urine WBC (0-5) /HPF Ur Squamous Epith Cells (0-2) /HPF Urine Bacteria (None Seen) Hyaline Casts (0-2) /LPF Influenza Type A (PCR) (Negative) Influenza Type B (PCR) (Negative) RSV RNA Qual (PCR) (Negative) SARS-CoV-2 RNA (RT-PCR) (Negative) Independent Interpretation I performed an independent interpretation of an: EKG, Plain X-Ray (RLL opacity) and CT Scan (no ICH, no LVO) Interpretation: Rate: 71 Rhythm: NSR with 1st degree AVB [place]: left Normal P waves. 1st degree AVB NSIVCD ST T wave : no HEIDI, inverted t waves aVL qTC: 434 prior studies: no sig change from priors The study has been interpreted contemporaneously by me. . Radiology Impression Discussion of test interpretation with radiology: I have reviewed the radiologist's reading. Independent Historian Clinical information obtained from an independent historian. History obtained from or confirmed by: EMS External Record Review External record reviewed: Inpatient record and Outpatient record Critical Care Time Critical Care Time Critical Care Time: Yes Total Critical Care Time: 65 Attestation: sepsis protocol, repeat labs, 2L of IVF, review of recodrs I attest to this time spent taking care of the patient Discharge Plan Discharge Clinical Impression: GENEVIEVE (acute kidney injury), Hypoxia, Acidosis, lactic Right lower lobe pneumonia Qualifiers: Pneumonia type: due to unspecified organism Qualified Code(s): J18.9 - Pneumonia, unspecified organism Patient Disposition: Admitted As Inpatient Print Language: Guyanese
--- NOTE | 2024-04-24 07:13 | ECG_ITS ---
Test Reason : SOB Blood Pressure : */* mmHG Vent. Rate : 71 BPM Atrial Rate : * BPM P-R Int : * ms QRS Dur : 130 ms QT Int : 400 ms P-R-T Axes : * -78 89 degrees QTcB Int : 434 ms NSR with first degree AV block Left bundle branch block Abnormal ECG When compared with ECG of 29-Mar-2024 10:36, Left bundle branch block Referred By: Carolina Christianson Electronically Signed By: Darin Alvarenga
[2024-04-24] MEDS: methylPREDNISolone Sod Succ 125 MG/2 ML VIAL 60 MG IVPUSH (07:31)
--- NOTE | 2024-04-24 07:31 | PC.NURSE ---
rectal temp obtained 102.0. IV established, both sets of blood cultures/labs obtained and sent at this time.
[2024-04-24] MEDS: cefTRIAXone sodium 2 GM VIAL IVPUSH (07:32)
[2024-04-24] MEDS: LACTATED RINGERS 2181 ML IV (07:32)
[2024-04-24] MEDS: Acetaminophen 1,000 MG/100 ML PIGGYBACK 400 MG IV (07:32)
[2024-04-24] MEDS: Albuterol Sulfate 2.5 MG, Albuterol/Iprat 2.5/0.5MG 3 ML 3 ML INHALE (07:40)
[2024-04-24 07:56] LABS: B Type Natriuretic Peptide 223 pg/mL (<100)
[2024-04-24 07:58] LABS: Basophils Absolute Auto 0.1 X10*3/uL (0.0-0.2); Basophils Percent Auto 0.6 % (0-2); Hematocrit 40.8 % (42.0-52.0); Hemoglobin 11.5 g/dl (14.0-18.0); Imm Gran Abs Auto 0.19 X10*3/uL (0.00-0.03); Imm Gran Pct Auto 0.8 % (0.0-0.4); Lymphocytes Percent Auto 4.5 % (20-40); MANUAL DIFF FLAG SCAN; Mean Corpuscular HGB Conc 28.2 g/dl (31.0-36.0); Mean Corpuscular Hemoglobin 16.3 pg (27.0-33.0); Mean Corpuscular Volume 57.7 fL (80.0-98.0); Monocytes Absolute Auto 1.4 X10*3/uL (0.1-1.2); NRBC Pct Auto 0.2 /100WBC (0.0-0.2); Neutrophils Percent Auto 79.1 % (45-73); Red Blood Count 7.07 X10*6/uL (4.60-5.80); Red Cell Distribution Width 28.5 % (11.0-16.0); SCAN SMEAR FLAG 1; Troponin-I High Sensitivity 20.7 ng/L (<3.5-35.0); White Blood Count 22.8 X10*3/uL (4.8-10.8)
[2024-04-24 07:59] LABS: Appearance Urine Clear; Color Urine Yellow; Glucose Urine UA Negative (Negative); Leukocyte Esterase Urine Trace (Negative); Nitrite Urine Negative (Negative); UMIC TRIGGER UACC YES; Urine Blood Negative (Negative); Urine Ketones Negative (Negative); Urine Protein Negative (Neg-Trace)
[2024-04-24 08:01] LABS: Bacteria Urine None Seen (None Seen); Hyaline Casts Urine 0-2 /LPF (0-2); RBC Urine 0-2 /HPF (0-2); Squamous Epithelial Cell Urine 0-2 /HPF (0-2); WBC Urine 0-5 /HPF (0-5)
[2024-04-24 08:04] LABS: Alanine Aminotransferase 20 U/L (0-40); Albumin Level 3.8 g/dL (3.5-5.0); Alkaline Phosphatase 113 U/L (39-117); Anion Gap 16 (12-20); Aspartate Amino Transferase 54 U/L (5-37); Bilirubin Direct 0.2 mg/dL (0.0-0.5); Bilirubin Total 0.5 mg/dL (0.0-1.0); Blood Urea Nitrogen 17 mg/dL (9-16); Carbon Dioxide 24 mmol/L (22-29); Chloride 102 mmol/L (96-108); Creatinine Clr Calc Pharmacy 29.4; Estimated Glomerular Filt Rate 44; Glucose Random 75 mg/dL (60-115); Lipase 16 U/L (8-78); Potassium 3.9 mmol/L (3.3-5.1); Sodium 138 mmol/L (135-145); Total Protein 7.5 g/dL (6.5-8.0)
[2024-04-24 08:05] LABS: Lactic Acid 2.1 mmol/L (0.5-2.0)
[2024-04-24 08:12] LABS: Procalcitonin 0.09 ng/mL
--- NOTE | 2024-04-24 08:24 | PC.NURSE ---
patient in ct scan at this time
[2024-04-24 08:34] LABS: Platelet Count 187 X10*3/uL (160-400)
[2024-04-24 08:36] LABS: Influenza A PCR NEGATIVE (Negative); Influenza B PCR NEGATIVE (Negative); Resp Syncy Virus RNA Qual PCR NEGATIVE (Negative); SARS COV2 PCR INHOUSE NEGATIVE (Negative); SLIDE REVIEW VERIFIED
[2024-04-24] MEDS: vancomycin HCL 1,000 MG, vancomycin HCL 750 MG in 0.9 % Sodium Chloride 500 ML 267.5 MG IV (08:53)
[2024-04-24 09:32] LABS: Reflex Lactate? Lactic Acid Added
[2024-04-24] MEDS: Albumin Human 25 % 100 ML 133.33 ML IV ×2 (10:05→11:19)
[2024-04-24 10:36] LABS: Venous Blood Gas Refer to POC result
[2024-04-24 10:37] LABS: VBG Base Excess 15.2 mmol/L; VBG HCO3 39 mmol/L (22-26); VBG pCO2 43 mmHg; VBG pH 7.56 (7.32-7.43); VBG pO2 49 mmHg
[2024-04-24 10:43] LABS: ~Lactic Acid-LAB USE ONLY 2.1 mmol/L (0.5-2.0)
[2024-04-24] MEDS: iohexoL 350 MG/ML 100 ML INFUS..BTL 70 ML IV (11:28)
[2024-04-24 12:06] LABS: Reflex Lactate? 2 Y
--- NOTE | 2024-04-24 12:18 | PC.NURSE ---
provider and this RN to bedside at start of shift, patient noted to have left sided facial droop w/ slurred speech. also found to have rectal temp of 102. unknown well time or full story at that time. spoke with son Silverio ([phone]) at later time who states patient woke up at approx 0400 to use the bathroom and ambulated with his walker with steady gait to and from bathroom. at approx 0600 attempted to ambulate with walker to bathroom again and began to have weakness in bilateral lower extremities. was lowered to the floor with his two sons and had to wait for EMS to be picked up off the floor. patient has bilateral 20IV to AC as well as 22IV right wrist. patient appears to have improved w/ facial droop and speech. resting quietly awaiting hospitalist orders.
--- NOTE | 2024-04-24 13:10 | P.HPHOSP_ITS ---
History of Present Illness Date of Service: 04/24/24 Chief Complaint: Shortness of breath, confusion An 88-year-old gentleman with a past medical history significant for COPD, JAK2- positive myeloproliferative disorder with chronically elevated WBC, subclavian stenosis status post stenting, hypertension, coronary artery disease with a history of NSTEMI, and active tobacco use disorder was last admitted from March 29 to for cellulitis and COPD exacerbation. He presented today with weakness, some left facial droop, and an audible wheeze; however, he is not hypoxic. He has a fever of 102?F, an elevated lactic acid, and a WBC of 22, though his WBC is chronically elevated, CXR shows a right lower lobe pneumonia. A CT head showed no acute findings, and a CTA of the head and neck revealed no large vessel occlusion (LVO). He is already on Eliquis. At the time of evaluation, he no longer had facial droop but appeared confused, and his speech was difficult to understand. Review of Systems 2 Review of Systems: Yes Unobtainable due to mental status [facility] Medical History COPD (chronic obstructive pulmonary disease) Leukocytosis Polycythemia Fracture High cholesterol HTN (hypertension) Heart attack Family History Daughter Aortic aneurysm Surgical History S/P angiogram of extremity Hx of rotator cuff surgery H/O arthroscopy of shoulder Social History Household Members: Spouse and Family Housing: House Do you presently have visiting nurse or other home services: No Patient Tobacco Use Status: Current everyday Tobacco user Tobacco use type: Cigarette Cigarette Packs Per Day: 1 Cigarettes Per Day: 20.0 Smoked in Last 30 Days: Yes Patient Interested in Nicotine Replacement: No Second Hand Smoke Exposure: No Use of substances other than those prescribed or required for medical reasons: No Currently Displaying Signs/Symptoms of Drug Intoxication Withdrawal: No Have you been hit, kicked, punched, or otherwise hurt by someone within the past year? If so, by whom?: No Do you feel safe in your current relationship?: Yes Is there a partner from a previous relationship who is making you feel unsafe now?: No Are you made to feel afraid or neglected: No Advance Directives: No Advance Directives Information Provided: Yes Advance Directives on File: No Do you have a plan to hurt others: No Plan Recently lost weight without trying: No How much weight loss: Not applicable Eating poorly because of decreased appetite: Yes Nutrition screen score: 1 Nutrition Risks: Poor intake 0-25% >4 days Poor oral hygiene: No service: No Meds Allergies Allergy/AdvReac Type Severity Reaction Status Date / Time No Known Allergies Allergy Verified 04/24/24 06:23 [No Known Allergies*] Home Medications ?Medication ?Instructions ?Recorded ?Confirmed ?Last Taken ?Type atorvastatin 20 mg tablet 20 mg PO DAILY 02/22/20 04/24/24 02/13/24 09:00 History albuterol sulfate 2.5 mg/3 mL 2.5 mg inhalation TID PRN 02/13/24 04/24/24 02/13/24 09:00 History (0.083 %) solution for nebulization Shortness Of Breath Or Wheezing fluticasone fur. 200 mcg-umeclid 1 ea inhalation DAILY 02/13/24 04/24/24 02/13/24 09:00 History 62.5 mcg-vilant 25 mcg inhalat.powder (Trelegy Ellipta) metoprolol succinate 50 mg 50 mg PO DAILY 02/13/24 04/24/24 02/13/24 09:00 History tablet,extended release 24 hr mhfuytckpfzx-nwanmtwd-jqwjir tablet 1 tab PO DAILY 02/13/24 04/24/24 02/13/24 09:00 History aspirin 81 mg chewable tablet 81 mg PO DAILY 03/30/24 04/24/24 Unknown History albuterol sulfate 90 mcg/actuation 1 puff inhalation QID PRN asthma 04/24/24 04/24/24 Unknown History aerosol inhaler cyanocobalamin (vitamin B-12) 1,000 mcg PO DAILY 04/24/24 04/24/24 Unknown History 1,000 mcg tablet Physical Exam 2 Vital Signs and Narrative: Vital Signs: Last Vital Signs Temp 100.2 F 04/24/24 10:13 Pulse 62 04/24/24 11:23 Resp 22 H 04/24/24 11:23 BP 105/53 L 04/24/24 11:23 Pulse Ox 100 03/01/25 11:23 O2 Del Method Oxymask 04/24/24 11:23 O2 Flow Rate 4 04/24/24 11:23 Oxygen Flow Rate 2 04/24/24 06:21 BMI result Body Mass Index 26.7 Const: Other: General: AO x 2 , no acute distress Resp: CTA bilateral CVS: S1,S2,RRR GI: +BS, NT, no distention Skin: No rash Ext: left leg looks bigger than left Neuro: motor grossly intact Psych: appropriate affect Results Labs 04/25/24 07:09 04/25/24 07:09 Labs: Laboratory Results - last 24 hr 04/24/24 04/24/24 04/24/24 07:28 07:53 09:55 MCV 57.7 L MCH 16.3 L MCHC 28.2 L RDW 28.5 H Plt Count 187 D MPV Not Reportable Immature Gran % (Auto) 0.8 H Neut % (Auto) 79.1 H Lymph % (Auto) 4.5 L [place] % (Auto) 6.0 Eos % (Auto) 9.0 H Baso % (Auto) 0.6 Lymph # (Auto) 1.0 L [place] # (Auto) 1.4 H Eos # (Auto) 2.0 H Baso # (Auto) 0.1 Abs Immat Gran (auto) 0.19 H Absolute Neuts (auto) 18.0 H Absolute Nucleated RBC 0.050 H Nucleated RBC % (auto) 0.2 Smear Tech's Comments VERIFIED Hold Purple Top Cancelled Hold Blue Top SEE NOTE VBG pH VBG pCO2 VBG pO2 VBG HCO3 VBG O2 Saturation VBG Base Excess Anion Gap 16 Estim Creat Clear Calc 29.4 Estimated GFR 44 Random Glucose 75 Lactic Acid 2.1 H* Lactic Acid F/U @ 2Hr 2.1 H* Calcium 9.0 Magnesium 2.0 Total Bilirubin 0.5 Direct Bilirubin 0.2 AST 54 H ALT 20 Alkaline Phosphatase 113 C-Reactive Protein 0.50 B-Natriuretic Peptide 223 H Total Protein 7.5 Albumin 3.8 Lipase 16 Procalcitonin 0.09 Hold Green Top See Note Urine Color Yellow Urine Appearance Clear Urine pH 7.0 Ur Specific [place] 1.010 Urine Protein Negative Urine Glucose (UA) Negative Urine Ketones Negative Urine Blood Negative Urine Nitrite Negative Ur Leukocyte Esterase Trace H Urine RBC 0-2 Urine WBC 0-5 Ur Squamous Epith Cells 0-2 Urine Bacteria None Seen Hyaline Casts 0-2 Influenza Type A (PCR) NEGATIVE Influenza Type B (PCR) NEGATIVE RSV RNA Qual (PCR) NEGATIVE SARS-CoV-2 RNA (RT-PCR) NEGATIVE 04/24/24 10:32 MCV MCH MCHC RDW Plt Count MPV Immature Gran % (Auto) Neut % (Auto) Lymph % (Auto) [place] % (Auto) Eos % (Auto) Baso % (Auto) Lymph # (Auto) [place] # (Auto) Eos # (Auto) Baso # (Auto) Abs Immat Gran (auto) Absolute Neuts (auto) Absolute Nucleated RBC Nucleated RBC % (auto) Smear Tech's Comments Hold Purple Top Hold Blue Top VBG pH 7.56 H VBG pCO2 43 VBG pO2 49 VBG HCO3 39 H VBG O2 Saturation 79.0 VBG Base Excess 15.2 Anion Gap Estim Creat Clear Calc Estimated GFR Random Glucose Lactic Acid Lactic Acid F/U @ 2Hr Calcium Magnesium Total Bilirubin Direct Bilirubin AST ALT Alkaline Phosphatase C-Reactive Protein B-Natriuretic Peptide Total Protein Albumin Lipase Procalcitonin Hold Green Top Urine Color Urine Appearance Urine pH Ur Specific [place] Urine Protein Urine Glucose (UA) Urine Ketones Urine Blood Urine Nitrite Ur Leukocyte Esterase Urine RBC Urine WBC Ur Squamous Epith Cells Urine Bacteria Hyaline Casts Influenza Type A (PCR) Influenza Type B (PCR) RSV RNA Qual (PCR) SARS-CoV-2 RNA (RT-PCR) Assessment and Plan (1) Hypoxia: Status: Acute (2) Encephalopathy: Status: Acute Plan 88-year-old male with a history of COPD, JAK2-positive myeloproliferative disorder with chronically elevated WBC, subclavian stenosis (status post stenting), hypertension, coronary artery disease with prior NSTEMI, and active tobacco use disorder. Recently hospitalized (Mar 29-) for cellulitis and COPD exacerbation. * Weakness, transient left facial droop, and audible wheezing * Fever of 102?F * Elevated lactic acid * WBC of 22 (chronically elevated) * CT head: No acute findings * CTA head and neck: No large vessel occlusion (LVO) * Already on Eliquis * At the time of evaluation: No facial droop, confusion, and slurred speech Plan: COPD exaerbation, RLL PNA, meet sepsis criteria Broad-spectrum antibiotics, vanc and ceftriaxone PNA Blood cultures done and pending Bronchodilators by NEB, O2 PRN AMS, concern for CVA, but CT heand and neck no acute finding. continue eliquis, and medical management. Neuro checks Recent history of Sustained SVT status post cardioversion Continue amiodarone 200 mg daily, continue eliquis Acute lactic acidosis, d/t copd, not sepsis Chronic Leukocytosis History of ANDREA 2 positive myeloproliferative disorder CAD/HLD Continue statin Full Code DVT Prophylaxis: Eliquis Quality Stroke Does the patient have a stroke diagnosis?: No VTE Prior VTE?: No VTE Risk Level:: Medical - moderate - high VTE Device Contraindication: Treatment Not Indicated VTE Drug Contraindication: N/A - Med Ordered
[2024-04-24 13:25] LABS: ~Lactic Acid-LAB USE ONLY 1.7 mmol/L (0.5-2.0)
--- NOTE | 2024-04-24 14:24 | PHA.PROG ---
Admission Date/Time: April 24, 2024 14:08 Indication: Weight in k.7 kg Adjusted body weight in Kg: [place] body weight in Kg: Obesity Dosing Indication % IBW: Serum Creatinine - Last 168 Hours 04/24/24 07:28 Creatinine 1.51 H Estimated CrCl and GFR - Last 168 Hours 04/24/24 07:28 Estim Creat Clear Calc 29.4 Estimated GFR 44 Vancomycin Loading Dose: 1750 MG Current Vancomycin Dosing Regimen:1000 MG Q 24 HOURS Vancomycin Monitoring using AUC goal of 400 - 600 range with trough as surrogate marker: Date and Time for next Vancomycin Level to be drawn: Pharmacist Comments on Vancomycin P PREDICTED AUC OF 547 Vancomycin dosing will take advantage of [employer] as a clinical decision support tool that uses Bayesian modeling to calculate individual patient's pharmacokinetic parameters and forecast the patient's drug concentration time course with the target goal AUC 24 range of 400 - 600 mg/L/hr.
[2024-04-24] MEDS: 0.9 % Sodium Chloride Flush 3 ML SYRINGE IVFLUSH (17:52)
--- NOTE | 2024-04-24 17:59 | PHA.MEDREC ---
Addendum entered by Frida Santiago [facility] 04/24/24 18:16: REVIEWED BY PHARMACIST Original Note: Pharmacy Consult ? Medication Reconciliation Pharmacy has completed the medication reconciliation. Spoke with patients son (Silverio) over the phone to confirm. He read off of patient rx bottles at home. He confirmed baby aspirin, metoprolol (LF 10/2023 x90DS), eliquis, amiodarone once daily, and a 1/2 tab of lasix 40mg daily. He reports no meds taken today.
[2024-04-24] MEDS: Apixaban 5 MG TABLET PO (19:45)
[2024-04-24] MEDS: Acetaminophen 325 MG TABLET 650 MG PO (19:45)
[2024-04-24] MEDS: Flu Vacc TS2024-25(6mos up)/PF 0.5 ML SYRINGE IM (19:46)
[2024-04-24] MEDS: Docusate Sodium 100 MG CAPSULE PO (19:46)
[2024-04-25] VITALS (7 sets, daily range): BP systolic 100–111; BP diastolic 53–61; PULSE 60–70; RESP 16–20; TEMP 36.1–36.4; O2SAT 92–100
[2024-04-25] MEDS: 0.9 % Sodium Chloride Flush 3 ML SYRINGE IVFLUSH ×3 (00:11→16:23)
[2024-04-25 07:20] LABS: Hematocrit 32.5 % (42.0-52.0); Hemoglobin 9.4 g/dl (14.0-18.0); Mean Corpuscular HGB Conc 28.9 g/dl (31.0-36.0); Mean Corpuscular Hemoglobin 16.7 pg (27.0-33.0); PLT CLUMP 1; Red Blood Count 5.62 X10*6/uL (4.60-5.80); Red Cell Distribution Width 27.7 % (11.0-16.0)
[2024-04-25 07:30] LABS: Mean Corpuscular Volume 57.8 fL (80.0-98.0)
[2024-04-25 07:31] LABS: Anion Gap 13 (12-20); Blood Urea Nitrogen 17 mg/dL (9-16); Calcium 8.5 mg/dL (8.4-10.2); Carbon Dioxide 24 mmol/L (22-29); Chloride 106 mmol/L (96-108); Creatinine Clr Calc Pharmacy 36.7; Estimated Glomerular Filt Rate 57; Glucose Random 98 mg/dL (60-115); PLT ABN DIST 1; Potassium 3.3 mmol/L (3.3-5.1); Sodium 140 mmol/L (135-145); WBC ABN SCTR FOR CBC 1
[2024-04-25 07:32] LABS: Platelet Count 178 X10*3/uL (160-400); White Blood Count 33.7 X10*3/uL (4.8-10.8)
[2024-04-25] MEDS: Fluticasone/Umeclidinium/Vilanterol 200/62.5/25 BLST.W.DEV 1 PUFF INHALE (07:44)
[2024-04-25 07:54] LABS: Band Neutrophils Percent 5 % (3-5); Lymphocytes Absolute Manual 0.7 X10*3/uL (1.2-4.9); Lymphocytes Percent Manual 2 % (20-40); Monocytes Absolute Manual 0.7 X10*3/uL (0.1-1.2); Monocytes Percent Manual 2 % (2-11); Neutrophils Absolute Manual 32.4 X10*3/uL (2.0-8.3); Neutrophils Percent Manual 91 % (45-73)
[2024-04-25 07:59] LABS: Acanthocytes 1+ (0-2) /OIF; Hypochromasia 2+ (15-30) /OIF; Microcytosis 3+ (>30) /OIF; Ovalocytes 1+ (5-14) /OIF; Platelet Estimate NORMAL (NORMAL); Platelet Morphology Comment NORMAL; Polychromasia 1+ (0-2) /OIF; RBC Morphology NOTED; Schistocytes 1+ (0-2) /OIF; Target Cells 1+ (5-14) /OIF
[2024-04-25] MEDS: cefTRIAXone sodium 1 GM VIAL IVPUSH (09:03)
[2024-04-25] MEDS: vancomycin HCL 1,000 MG in 0.9 % Sodium Chloride 250 ML 270 MG IV (09:03)
[2024-04-25] MEDS: Cyanocobalamin (Vitamin B-12) 1,000 MCG TABLET 1000 MCG PO (09:05)
[2024-04-25] MEDS: Amiodarone HCL 200 MG TABLET PO (09:05)
[2024-04-25] MEDS: Docusate Sodium 100 MG CAPSULE PO ×2 (09:05→20:34)
[2024-04-25] MEDS: Atorvastatin Calcium 20 MG TABLET PO (09:05)
[2024-04-25] MEDS: Multivitamin TABLET 1 TAB PO (09:05)
[2024-04-25] MEDS: Aspirin 81 MG TAB.CHEW PO (09:05)
[2024-04-25] MEDS: Apixaban 5 MG TABLET PO ×2 (09:05→20:34)
--- NOTE | 2024-04-25 11:28 | HO.PM.IMPN ---
Subjective Subjective Date of Service: 04/25/24 Interval History: f/u AMS, pneumonia he is doing better, more coherent WBC markedly hgigh, occasional cough Physical Exam Vital Signs: Vital Signs: Last Vital Signs Temp 97.0 F 04/25/24 07:49 Pulse 60 04/25/24 07:49 Resp 18 04/25/24 07:49 BP 101/53 L 04/25/24 07:49 Pulse Ox 96 04/25/24 07:49 O2 Del Method Oxymask 04/25/24 07:49 O2 Flow Rate 4 04/25/24 07:49 Oxygen Flow Rate 2 04/24/24 06:21 BMI result Body Mass Index 25.9 Const: Other: General: AO x 2 , no acute distress Resp: CTA bilateral CVS: S1,S2,RRR GI: +BS, NT, no distention Skin: No rash Ext: left leg looks bigger than left Neuro: motor grossly intact, no focal deficit Psych: appropriate affect Objective Data Active Medications Acetaminophen (Acetaminophen 325 Mg Tablet) 650 mg PO Q6H PRN PRN Reason: Pain, Mild 1-3,fever,headache Last Admin: 04/24/24 19:45 Dose: 650 mg Documented By: KEVIN Albuterol Sulfate (Albuterol Sulfate (0.083%) 2.5 Mg/3 Ml Vial.Neb) 2.5 mg INHALE TID PRN PRN Reason: Shortness Of Breath Or Wheezing Albuterol Sulfate (Albuterol Sulfate 90 Mcg 8 Gm Inhaler) 1 puff INHALE QID PRN PRN Reason: asthma Albuterol/Ipratropium (Albuterol/Iprat 2.5/0.5mg 3 Ml Ampul.Neb) 3 ml INHALE Q4H PRN PRN Reason: Shortness of Breath/Wheezing Amiodarone HCl (Amiodarone Hcl 200 Mg Tablet) 200 mg PO DAILY [facility] Last Admin: 04/25/24 09:05 Dose: 200 mg Documented By: CHAD Apixaban (Apixaban 5 Mg Tablet) 5 mg PO BID [facility] Last Admin: 04/25/24 09:05 Dose: 5 mg Documented By: CHAD Aspirin (Aspirin 81 Mg Tab.Chew) 81 mg PO DAILY [facility] Last Admin: 04/25/24 09:05 Dose: 81 mg Documented By: CHAD Atorvastatin Calcium (Atorvastatin Calcium 20 Mg Tablet) 20 mg PO DAILY [facility] Last Admin: 04/25/24 09:05 Dose: 20 mg Documented By: CHAD Calcium Carbonate (Calcium Carbonate 750 Mg Tab.Chew) 750 mg PO Q4H PRN PRN Reason: Heartburn Ceftriaxone Sodium (Ceftriaxone Sodium 1 Gm Vial) 1 gm IVPUSH Q24H [facility] Last Admin: 04/25/24 09:03 Dose: 1 gm Documented By: CHAD Cyanocobalamin (Cyanocobalamin (Vitamin B-12) 1,000 Mcg Tablet) 1,000 mcg PO DAILY [facility] Last Admin: 04/25/24 09:05 Dose: 1,000 mcg Documented By: CHAD Docusate Sodium (Docusate Sodium 100 Mg Capsule) 100 mg PO BID [facility] Last Admin: 04/25/24 09:05 Dose: 100 mg Documented By: CHAD Fluticasone/Umeclidinium/Vilanterol (Fluticasone/Umeclidinium/Vilanterol 200/62.5/25 Blst.W.Dev) 1 puff INHALE RDAILY [facility] Last Admin: 04/25/24 07:44 Dose: 1 puff Documented By: HANNAH Furosemide (Furosemide 20 Mg Tablet) 20 mg PO DAILY [facility]; Protocol Last Admin: 04/25/24 09:16 Dose: Not Given Documented By: CHAD Non-Admin Reason: Physician Held Med Vancomycin HCl 1,000 mg/ (Sodium Chloride) 270 mls @ 270 mls/hr IV Q24H [facility] Last Infusion: 04/25/24 10:03 Dose: Infused Documented By: CHAD Magnesium Hydroxide (Milk Of Magnesia 30 Ml Oral.Susp) 30 ml PO DAILY PRN PRN Reason: Constipation Melatonin (Melatonin 3 Mg Tablet) 6 mg PO BEDTIME PRN PRN Reason: Insomnia Metoprolol Succinate (Metoprolol Succinate Er 50 Mg Tab.Er.24h) 50 mg PO DAILY [facility]; Protocol Last Admin: 04/25/24 09:16 Dose: Not Given Documented By: CHAD Non-Admin Reason: Physician Held Med Multivitamins/Vitamin C (Multivitamin Tablet) 1 tab PO DAILY [facility] Last Admin: 04/25/24 09:05 Dose: 1 tab Documented By: CHAD Nicotine (Nicotine 14 Mg Patch.Td24) 14 mg TRANSDERMA DAILY [facility] Last Admin: 04/25/24 09:04 Dose: Not Given Documented By: CHAD Non-Admin Reason: Patient Refused Pharmacy Consult (Consult Rx Vancomycin Dosing) 1 each MISCELLANE DAILY PRN PRN Reason: Consult order Polyethylene Glycol (Polyethylene Glycol 3350 17 Gm Powd.Pack) 17 gm PO DAILY PRN PRN Reason: Constipation Sodium Chloride (0.9 % Sodium Chloride Flush 3 Ml Syringe) 3 ml IVFLUSH QSHIFT [facility] Last Admin: 04/25/24 09:03 Dose: 3 ml Documented By: CHAD Labs 04/25/24 07:09 04/25/24 07:09 Labs: Laboratory Results - last 24 hr 04/24/24 04/25/24 04/25/24 13:01 07:08 07:09 MCV 57.8 L MCH 16.7 L MCHC 28.9 L RDW 27.7 H Plt Count 178 MPV Not Reportable Immature Gran % (Auto) Cancelled Neut % (Auto) Cancelled Lymph % (Auto) Cancelled [place] % (Auto) Cancelled Eos % (Auto) Cancelled Baso % (Auto) Cancelled Lymph # (Auto) Cancelled [place] # (Auto) Cancelled Eos # (Auto) Cancelled Baso # (Auto) Cancelled Abs Immat Gran (auto) Cancelled Absolute Neuts (auto) Cancelled Absolute Nucleated RBC 0.000 Nucleated RBC % (auto) 0.0 Neutrophils % (Manual) 91 H Band Neutrophils % 5 Lymphocytes % (Manual) 2 L Monocytes % (Manual) 2 Abs Neuts (Manual) 32.4 H Lymphocytes # (Manual) 0.7 L Monocytes # (Manual) 0.7 Platelet Estimate NORMAL Plt Morphology Comment NORMAL RBC Morphology NOTED Polychromasia 1+ (0-2) Hypochromasia 2+ (15-30) Microcytosis 3+ (>30) Target Cells 1+ (5-14) Ovalocytes 1+ (5-14) Acanthocytes (Spur) 1+ (0-2) Schistocytes 1+ (0-2) Anion Gap 13 Estim Creat Clear Calc Cancelled 36.7 Estimated GFR Cancelled 57 Random Glucose 98 Lactic Acid F/U @ 4Hr 1.7 Calcium 8.5 Microbiology Microbiology Results: Microbiology 04/24/24 07:28 Blood Culture - Preliminary Blood - Venous No growth after 24 hours. 04/24/24 07:28 Blood Culture - Preliminary Blood - Venous No growth after 24 hours. 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 Recently hospitalized (Mar 29-) for cellulitis and COPD exacerbation. Weakness, transient left facial droop, and audible wheezing Fever of 102?F Elevated lactic acid WBC of 22 (chronically elevated) CT head: No acute findings CTA head and neck: No large vessel occlusion (LVO) Already on Eliquis At the time of evaluation: No facial droop, confusion, and slurred speech Plan: COPD exaerbation, RLL PNA, meet sepsis criteria, elevated WBC d/t MDS Broad-spectrum antibiotics, vanc and ceftriaxone PNA since 04/24, change Ceftriaxone to Zosyn Blood cultures pending Bronchodilators by NEB, O2 PRN low dose prednisone 2 steroid for copd AMS, concern for CVA, but CT heand and neck no acute finding--probably related to above, now lucid continue eliquis, and medical management. No further testing for CVA indicated at this time Recent history of Sustained SVT status post cardioversion Continue amiodarone 200 mg daily, continue eliquis Acute lactic acidosis, d/t copd, not sepsis Chronic Leukocytosis, likely from steroid yesterday History of ANDREA 2 positive myeloproliferative disorder CAD/HLD Continue statin Full Code DVT Prophylaxis: Eliquis Quality Stroke Does the patient have a stroke diagnosis?: No VTE Prior VTE?: No VTE Risk Level:: Medical - moderate - high VTE Device Contraindication: Treatment Not Indicated VTE Drug Contraindication: N/A - Med Ordered
[2024-04-25] MEDS: predniSONE 20 MG TABLET PO (12:07)
[2024-04-25] MEDS: guaiFENesin DM 200/20/10 ML 10 ML SYRUP PO (20:35)
[2024-04-26] VITALS (8 sets, daily range): BP systolic 100–125; BP diastolic 56–67; PULSE 54–72; RESP 16–20; TEMP 36.1–37; O2SAT 89–98
[2024-04-26 06:43] LABS: Creatinine Clr Calc Pharmacy 32.9; Estimated Glomerular Filt Rate 50
[2024-04-26] MEDS: Fluticasone/Umeclidinium/Vilanterol 200/62.5/25 BLST.W.DEV 1 PUFF INHALE (07:20)
[2024-04-26 07:34] LABS: Vancomycin Random 12.2 mcg/mL (15-20)
[2024-04-26] MEDS: vancomycin HCL 1,000 MG in 0.9 % Sodium Chloride 250 ML 270 MG IV (08:23)
[2024-04-26] MEDS: Furosemide 20 MG TABLET PO (08:24)
[2024-04-26] MEDS: cefTRIAXone sodium 1 GM VIAL IVPUSH (08:24)
[2024-04-26] MEDS: Apixaban 5 MG TABLET PO ×2 (08:25→20:04)
[2024-04-26] MEDS: Docusate Sodium 100 MG CAPSULE PO ×2 (08:25→20:04)
[2024-04-26] MEDS: Metoprolol Succinate ER 50 MG TAB.ER.24H PO (08:25)
[2024-04-26] MEDS: 0.9 % Sodium Chloride Flush 3 ML SYRINGE IVFLUSH ×3 (08:25→20:04)
[2024-04-26] MEDS: Amiodarone HCL 200 MG TABLET PO (08:25)
[2024-04-26] MEDS: predniSONE 20 MG TABLET PO (08:25)
[2024-04-26] MEDS: Aspirin 81 MG TAB.CHEW PO (08:25)
[2024-04-26] MEDS: Cyanocobalamin (Vitamin B-12) 1,000 MCG TABLET 1000 MCG PO (08:25)
[2024-04-26] MEDS: Multivitamin TABLET 1 TAB PO (08:25)
[2024-04-26] MEDS: Atorvastatin Calcium 20 MG TABLET PO (08:25)
--- NOTE | 2024-04-26 08:44 | MHC.CM.PN ---
CM met with Patient at bedside and addressed IMM with him, providing Patient with the original and a copy has been placed on the chart. Patient appeared slightly confused/forgetful but was able to respond appropriately to most questions. Patient lives in a house with his and 2 adult children and he uses both a cane and a walker to assist with mobility (no home O2). Patient may benefit from a PT Eval to assist with disposition (home with new VNA VS STR); CM has initiated and will follow for dc planning. PCP is Dr. Stephanie Gillespie and CM did not attempt a HCP at this time. Patient will need assist with transportation;there is no family car.
[2024-04-26 10:13] LABS: Hematocrit 37.7 % (42.0-52.0); Hemoglobin 10.4 g/dl (14.0-18.0); Mean Corpuscular HGB Conc 27.6 g/dl (31.0-36.0); Mean Corpuscular Hemoglobin 16.6 pg (27.0-33.0); NRBC Pct Auto 0.1 /100WBC (0.0-0.2); PLT CLUMP 1; Red Blood Count 6.28 X10*6/uL (4.60-5.80); Red Cell Distribution Width 28.4 % (11.0-16.0)
[2024-04-26 10:22] LABS: Platelet Count 229 X10*3/uL (160-400)
[2024-04-26 10:31] LABS: Anion Gap 12 (12-20); Blood Urea Nitrogen 19 mg/dL (9-16); Calcium 8.3 mg/dL (8.4-10.2); Carbon Dioxide 27 mmol/L (22-29); Chloride 105 mmol/L (96-108); Creatinine Clr Calc Pharmacy 33.6; Estimated Glomerular Filt Rate 51; Glucose Random 115 mg/dL (60-115); Potassium 3.9 mmol/L (3.3-5.1); Sodium 140 mmol/L (135-145)
[2024-04-26] MEDS: guaiFENesin DM 200/20/10 ML 10 ML SYRUP PO (11:50)
--- NOTE | 2024-04-26 12:25 | P.PNIM_ITS ---
Subjective Subjective Date of Service: 04/26/24 Interval History: f/u AMS, pneumonia he is doing better, more coherent WBC markedly hgigh, occasional cough no more confusion Physical Exam 2 Vital Signs: Vital Signs: Last Vital Signs Temp 96.9 F 04/26/24 11:29 Pulse 54 04/26/24 11:29 Resp 16 04/26/24 11:29 BP 115/56 L 04/26/24 11:29 Pulse Ox 96 04/26/24 11:29 O2 Del Method Nasal Cannula 04/26/24 11:29 O2 Flow Rate 2 04/26/24 11:29 Oxygen Flow Rate 2 04/24/24 06:21 BMI result Body Mass Index 25.9 Const: Other: General: AO x , no acute distress Resp: CTA bilateral CVS: S1,S2,RRR GI: +BS, NT, no distention Skin: No rash Ext: left leg looks bigger than left Neuro: motor grossly intact, no focal deficit Psych: appropriate affect Objective Data Active Medications Acetaminophen (Acetaminophen 325 Mg Tablet) 650 mg PO Q6H PRN PRN Reason: Pain, Mild 1-3,fever,headache Last Admin: 04/24/24 19:45 Dose: 650 mg Documented By: KEVIN Albuterol Sulfate (Albuterol Sulfate (0.083%) 2.5 Mg/3 Ml Vial.Neb) 2.5 mg INHALE TID PRN PRN Reason: Shortness Of Breath Or Wheezing Albuterol Sulfate (Albuterol Sulfate 90 Mcg 8 Gm Inhaler) 1 puff INHALE QID PRN PRN Reason: asthma Albuterol/Ipratropium (Albuterol/Iprat 2.5/0.5mg 3 Ml Ampul.Neb) 3 ml INHALE Q4H PRN PRN Reason: Shortness of Breath/Wheezing Amiodarone HCl (Amiodarone Hcl 200 Mg Tablet) 200 mg PO DAILY [facility] Last Admin: 04/26/24 08:25 Dose: 200 mg Documented By: YAMILKA Apixaban (Apixaban 5 Mg Tablet) 5 mg PO BID [facility] Last Admin: 04/26/24 08:25 Dose: 5 mg Documented By: YAMILKA Aspirin (Aspirin 81 Mg Tab.Chew) 81 mg PO DAILY [facility] Last Admin: 04/26/24 08:25 Dose: 81 mg Documented By: YAMILKA Atorvastatin Calcium (Atorvastatin Calcium 20 Mg Tablet) 20 mg PO DAILY [facility] Last Admin: 04/26/24 08:25 Dose: 20 mg Documented By: YAMILKA Calcium Carbonate (Calcium Carbonate 750 Mg Tab.Chew) 750 mg PO Q4H PRN PRN Reason: Heartburn Ceftriaxone Sodium (Ceftriaxone Sodium 1 Gm Vial) 1 gm IVPUSH Q24H [facility] Last Admin: 04/26/24 08:24 Dose: 1 gm Documented By: YAMILKA Cyanocobalamin (Cyanocobalamin (Vitamin B-12) 1,000 Mcg Tablet) 1,000 mcg PO DAILY [facility] Last Admin: 04/26/24 08:25 Dose: 1,000 mcg Documented By: YAMILKA Docusate Sodium (Docusate Sodium 100 Mg Capsule) 100 mg PO BID [facility] Last Admin: 04/26/24 08:25 Dose: 100 mg Documented By: YAMILKA Fluticasone/Umeclidinium/Vilanterol (Fluticasone/Umeclidinium/Vilanterol 200/62.5/25 Blst.W.Dev) 1 puff INHALE RDAILY [facility] Last Admin: 04/26/24 07:20 Dose: 1 puff Documented By: COLTON Furosemide (Furosemide 20 Mg Tablet) 20 mg PO DAILY [facility]; Protocol Last Admin: 04/26/24 08:24 Dose: 20 mg Documented By: YAMILKA Guaifenesin/Dextromethorphan (Guaifenesin Dm 200/20/10 Ml 10 Ml Syrup) 10 ml PO Q4H PRN PRN Reason: Cough Last Admin: 04/26/24 11:50 Dose: 10 ml Documented By: YAMILKA Vancomycin HCl 1,000 mg/ (Sodium Chloride) 270 mls @ 270 mls/hr IV Q24H [facility] Last Infusion: 04/26/24 11:37 Dose: Infused Documented By: YAMILKA Magnesium Hydroxide (Milk Of Magnesia 30 Ml Oral.Susp) 30 ml PO DAILY PRN PRN Reason: Constipation Melatonin (Melatonin 3 Mg Tablet) 6 mg PO BEDTIME PRN PRN Reason: Insomnia Metoprolol Succinate (Metoprolol Succinate Er 50 Mg Tab.Er.24h) 50 mg PO DAILY [facility]; Protocol Last Admin: 04/26/24 08:25 Dose: 50 mg Documented By: YAMILKA Multivitamins/Vitamin C (Multivitamin Tablet) 1 tab PO DAILY [facility] Last Admin: 04/26/24 08:25 Dose: 1 tab Documented By: YAMILKA Nicotine (Nicotine 14 Mg Patch.Td24) 14 mg TRANSDERMA DAILY [facility] Last Admin: 04/26/24 08:24 Dose: Not Given Documented By: YAMILKA Non-Admin Reason: Patient Refused Pharmacy Consult (Consult Rx Vancomycin Dosing) 1 each MISCELLANE DAILY PRN PRN Reason: Consult order Polyethylene Glycol (Polyethylene Glycol 3350 17 Gm Powd.Pack) 17 gm PO DAILY PRN PRN Reason: Constipation Prednisone (Prednisone 20 Mg Tablet) 20 mg PO DAILY [facility] Last Admin: 04/26/24 08:25 Dose: 20 mg Documented By: YAMILKA Sodium Chloride (0.9 % Sodium Chloride Flush 3 Ml Syringe) 3 ml IVFLUSH QSHIFT [facility] Last Admin: 04/26/24 08:25 Dose: 3 ml Documented By: YAMILKA Labs 04/26/24 09:53 04/26/24 09:53 Labs: Laboratory Results - last 24 hr 04/26/24 04/26/24 06:05 09:53 MCV 60.0 L MCH 16.6 L MCHC 27.6 L RDW 28.4 H Plt Count 229 D MPV Not Reportable Absolute Nucleated RBC 0.040 H Nucleated RBC % (auto) 0.1 Anion Gap 12 Estim Creat Clear Calc 32.9 33.6 Estimated GFR 50 51 Random Glucose 115 Calcium 8.3 L Random Vancomycin 12.2 L Microbiology Microbiology Results: Microbiology 04/24/24 07:28 Blood Culture - Preliminary Blood - Venous No growth after 48 hours. 04/24/24 07:28 Blood Culture - Preliminary Blood - Venous No growth after 48 hours. 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 Recently hospitalized (Fe 3-6) for cellulitis and COPD exacerbation. * Weakness, transient left facial droop, and audible wheezing * Fever of 102?F * Elevated lactic acid * WBC of 22 (chronically elevated) * CT head: No acute findings * CTA head and neck: No large vessel occlusion (LVO) * Already on Eliquis * At the time of evaluation: No facial droop, confusion, and slurred speech Plan: COPD exaerbation, RLL PNA, meet sepsis criteria, elevated WBC d/t MDS Broad-spectrum antibiotics, vanc and ceftriaxone PNA since 04/24, change Ceftriaxone to Zosyn Blood cultures pending Bronchodilators by NEB, O2 PRN low dose prednisone 2 steroid for copd AMS, concern for CVA, but CT heand and neck no acute finding--probably related to above, now lucid continue eliquis, and medical management. No further testing for CVA indicated at this time Recent history of Sustained SVT status post cardioversion Continue amiodarone 200 mg daily, continue eliquis Acute lactic acidosis, d/t copd, not sepsis Chronic Leukocytosis worse due to steroid History of ANDREA 2 positive myeloproliferative disorder CAD/HLD Continue statin Full Code DVT Prophylaxis: Eliquis Quality Stroke Does the patient have a stroke diagnosis?: No VTE Prior VTE?: No VTE Risk Level:: Medical - moderate - high VTE Device Contraindication: Treatment Not Indicated VTE Drug Contraindication: N/A - Med Ordered
--- NOTE | 2024-04-26 15:41 | MHC.CM.PN ---
PT is recommending STR; CM will follow.
[2024-04-27 03:07] VITALS: BP 130/70; PULSE 58; RESP 18; TEMP 36.4; O2SAT 95
[2024-04-27 07:08] LABS: Hematocrit 37.4 % (42.0-52.0); NRBC Pct Auto 0.2 /100WBC (0.0-0.2)
[2024-04-27 07:10] LABS: Hemoglobin 10.5 g/dl (14.0-18.0); Mean Corpuscular HGB Conc 28.1 g/dl (31.0-36.0); Mean Corpuscular Hemoglobin 16.9 pg (27.0-33.0); PLT CLUMP 1; Red Blood Count 6.22 X10*6/uL (4.60-5.80); Red Cell Distribution Width 28.6 % (11.0-16.0)
[2024-04-27 07:14] VITALS: BP 130/67; PULSE 53; RESP 16; TEMP 36.4; O2SAT 94
[2024-04-27 07:20] LABS: Mean Corpuscular Volume 60.1 fL (80.0-98.0); PLT ABN DIST 1
[2024-04-27 07:21] LABS: White Blood Count 36.6 X10*3/uL (4.8-10.8)
[2024-04-27 07:31] LABS: Creatinine Clr Calc Pharmacy 39.6; Estimated Glomerular Filt Rate > 60
[2024-04-27 07:35] LABS: Anion Gap 14 (12-20); Blood Urea Nitrogen 21 mg/dL (9-16); Calcium 8.8 mg/dL (8.4-10.2); Carbon Dioxide 26 mmol/L (22-29); Chloride 106 mmol/L (96-108); Creatinine Clr Calc Pharmacy 38.9; Estimated Glomerular Filt Rate > 60; Glucose Random 90 mg/dL (60-115); Potassium 3.8 mmol/L (3.3-5.1); Sodium 142 mmol/L (135-145)
[2024-04-27] MEDS: Fluticasone/Umeclidinium/Vilanterol 200/62.5/25 BLST.W.DEV 1 PUFF INHALE (07:39)
[2024-04-27 07:41] VITALS: PULSE 53; RESP 16; O2SAT 92
[2024-04-27 07:47] LABS: Platelet Count 252 X10*3/uL (160-400)
[2024-04-27] MEDS: cefTRIAXone sodium 1 GM VIAL IVPUSH (08:37)
[2024-04-27] MEDS: 0.9 % Sodium Chloride Flush 3 ML SYRINGE IVFLUSH (08:37)
[2024-04-27] MEDS: Apixaban 5 MG TABLET PO (08:38)
[2024-04-27] MEDS: Aspirin 81 MG TAB.CHEW PO (08:38)
[2024-04-27] MEDS: Atorvastatin Calcium 20 MG TABLET PO (08:38)
[2024-04-27] MEDS: Furosemide 20 MG TABLET PO (08:38)
[2024-04-27] MEDS: Docusate Sodium 100 MG CAPSULE PO (08:38)
[2024-04-27] MEDS: predniSONE 20 MG TABLET PO (08:38)
[2024-04-27] MEDS: Amiodarone HCL 200 MG TABLET PO (08:39)
[2024-04-27] MEDS: Cyanocobalamin (Vitamin B-12) 1,000 MCG TABLET 1000 MCG PO (08:40)
[2024-04-27] MEDS: Metoprolol Succinate ER 50 MG TAB.ER.24H PO (08:40)
[2024-04-27] MEDS: Multivitamin TABLET 1 TAB PO (08:40)
[2024-04-27] MEDS: Nicotine 14 MG PATCH.TD24 TRANSDERMA (08:41)
[2024-04-27] MEDS: guaiFENesin DM 200/20/10 ML 10 ML SYRUP PO (08:55)
--- NOTE | 2024-04-27 09:29 | P.PNIM_ITS ---
Subjective Subjective Date of Service: 04/27/24 Interval History: f/u AMS, pneumonia no sob, feeling better Physical Exam 2 Vital Signs: Vital Signs: Last Vital Signs Temp 97.5 F 04/27/24 07:14 Pulse 53 04/27/24 07:41 Resp 16 04/27/24 07:41 BP 130/67 04/27/24 07:14 Pulse Ox 94 04/27/24 07:14 O2 Del Method Nasal Cannula 04/27/24 07:14 O2 Flow Rate 3 04/27/24 07:14 Oxygen Flow Rate 2 04/24/24 06:21 BMI result Body Mass Index 25.9 Const: Other: General: AO x3 , no acute distress Resp: CTA bilateral CVS: S1,S2,RRR GI: +BS, NT, no distention Skin: No rash Ext: left leg looks bigger than left Neuro: motor grossly intact, no focal deficit Psych: appropriate affect Objective Data Active Medications Acetaminophen (Acetaminophen 325 Mg Tablet) 650 mg PO Q6H PRN PRN Reason: Pain, Mild 1-3,fever,headache Last Admin: 04/24/24 19:45 Dose: 650 mg Documented By: KEVIN Albuterol Sulfate (Albuterol Sulfate (0.083%) 2.5 Mg/3 Ml Vial.Neb) 2.5 mg INHALE TID PRN PRN Reason: Shortness Of Breath Or Wheezing Albuterol Sulfate (Albuterol Sulfate 90 Mcg 8 Gm Inhaler) 1 puff INHALE QID PRN PRN Reason: asthma Albuterol/Ipratropium (Albuterol/Iprat 2.5/0.5mg 3 Ml Ampul.Neb) 3 ml INHALE Q4H PRN PRN Reason: Shortness of Breath/Wheezing Amiodarone HCl (Amiodarone Hcl 200 Mg Tablet) 200 mg PO DAILY [facility] Last Admin: 04/27/24 08:39 Dose: 200 mg Documented By: YAMILKA Apixaban (Apixaban 5 Mg Tablet) 5 mg PO BID [facility] Last Admin: 04/27/24 08:38 Dose: 5 mg Documented By: YAMILKA Aspirin (Aspirin 81 Mg Tab.Chew) 81 mg PO DAILY [facility] Last Admin: 04/27/24 08:38 Dose: 81 mg Documented By: YAMILKA Atorvastatin Calcium (Atorvastatin Calcium 20 Mg Tablet) 20 mg PO DAILY [facility] Last Admin: 04/27/24 08:38 Dose: 20 mg Documented By: YAMILKA Calcium Carbonate (Calcium Carbonate 750 Mg Tab.Chew) 750 mg PO Q4H PRN PRN Reason: Heartburn Ceftriaxone Sodium (Ceftriaxone Sodium 1 Gm Vial) 1 gm IVPUSH Q24H [facility] Last Admin: 04/27/24 08:37 Dose: 1 gm Documented By: YAMILKA Cyanocobalamin (Cyanocobalamin (Vitamin B-12) 1,000 Mcg Tablet) 1,000 mcg PO DAILY [facility] Last Admin: 04/27/24 08:40 Dose: 1,000 mcg Documented By: YAMILKA Docusate Sodium (Docusate Sodium 100 Mg Capsule) 100 mg PO BID [facility] Last Admin: 04/27/24 08:38 Dose: 100 mg Documented By: YAMILKA Fluticasone/Umeclidinium/Vilanterol (Fluticasone/Umeclidinium/Vilanterol 200/62.5/25 Blst.W.Dev) 1 puff INHALE RDAILY [facility] Last Admin: 04/27/24 07:39 Dose: 1 puff Documented By: HOA Furosemide (Furosemide 20 Mg Tablet) 20 mg PO DAILY [facility]; Protocol Last Admin: 04/27/24 08:38 Dose: 20 mg Documented By: YAMILKA Guaifenesin/Dextromethorphan (Guaifenesin Dm 200/20/10 Ml 10 Ml Syrup) 10 ml PO Q4H PRN PRN Reason: Cough Last Admin: 04/27/24 08:55 Dose: 10 ml Documented By: YAMILKA Magnesium Hydroxide (Milk Of Magnesia 30 Ml Oral.Susp) 30 ml PO DAILY PRN PRN Reason: Constipation Melatonin (Melatonin 3 Mg Tablet) 6 mg PO BEDTIME PRN PRN Reason: Insomnia Metoprolol Succinate (Metoprolol Succinate Er 50 Mg Tab.Er.24h) 50 mg PO DAILY [facility]; Protocol Last Admin: 04/27/24 08:40 Dose: 50 mg Documented By: YAMILKA Multivitamins/Vitamin C (Multivitamin Tablet) 1 tab PO DAILY [facility] Last Admin: 04/27/24 08:40 Dose: 1 tab Documented By: YAMILKA Nicotine (Nicotine 14 Mg Patch.Td24) 14 mg TRANSDERMA DAILY [facility] Last Admin: 04/27/24 08:41 Dose: 14 mg Documented By: YAMILKA Polyethylene Glycol (Polyethylene Glycol 3350 17 Gm Powd.Pack) 17 gm PO DAILY PRN PRN Reason: Constipation Prednisone (Prednisone 20 Mg Tablet) 20 mg PO DAILY [facility] Last Admin: 04/27/24 08:38 Dose: 20 mg Documented By: YAMILKA Sodium Chloride (0.9 % Sodium Chloride Flush 3 Ml Syringe) 3 ml IVFLUSH QSHIFT [facility] Last Admin: 04/27/24 08:37 Dose: 3 ml Documented By: YAMILKA Labs 04/27/24 06:24 04/27/24 06:24 Labs: Laboratory Results - last 24 hr 04/26/24 04/27/24 04/27/24 09:53 06:24 06:24 MCV 60.0 L 60.1 L MCH 16.6 L 16.9 L MCHC 27.6 L 28.1 L RDW 28.4 H 28.6 H Plt Count 229 D 252 MPV Not Reportable Not Reportable Absolute Nucleated RBC 0.040 H 0.060 H Nucleated RBC % (auto) 0.1 0.2 Anion Gap 12 14 Estim Creat Clear Calc 33.6 39.6 38.9 Estimated GFR 51 > 60 Random Glucose 115 Calcium 8.3 L 04/27/24 06:24 MCV MCH MCHC RDW Plt Count MPV Absolute Nucleated RBC Nucleated RBC % (auto) Anion Gap Estim Creat Clear Calc Estimated GFR > 60 Random Glucose 90 Calcium 8.8 D Microbiology Microbiology Results: Microbiology 04/24/24 07:28 Blood Culture - Preliminary Blood - Venous No growth after 48 hours. 04/24/24 07:28 Blood Culture - Preliminary Blood - Venous No growth after 48 hours. 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 Recently hospitalized (Mar 3-) for cellulitis and COPD exacerbation. Presented with * Weakness, transient left facial droop, and audible wheezing * Fever of 102?F * Elevated lactic acid * WBC of 22 (chronically elevated) * CT head: No acute findings * CTA head and neck: No large vessel occlusion (LVO) * Already on Eliquis * At the time of evaluation: No facial droop, confusion, and slurred speech Plan: COPD exaerbation, RLL PNA, met sepsis criteria, elevated WBC d/t MDS Broad-spectrum antibiotics, vanc and ceftriaxone PNA since 04/24, vanco dc 04/26. Overall doing Changing Abx to PO Augmentin and Doxy Blood cultures negative Bronchodilators by NEB, O2 PRN low dose prednisone 2 steroid for copd x 5 days AMS, concern for CVA, but CT heand and neck no acute finding--probably related to above, now lucid continue eliquis, and medical management. No further testing for CVA indicated at this time H/o Aflutter in Jan 2024 Continue amiodarone 200 mg daily continue eliquis 5 bid Acute lactic acidosis, d/t copd, not sepsis Chronic Leukocytosis worse due to steroid History of ANDREA 2 positive myeloproliferative disorder Outpatient follow up with Heme CAD/HLD Continue statin Full Code DVT Prophylaxis: Eliquis PT is recommending STR Quality Stroke Does the patient have a stroke diagnosis?: No VTE Prior VTE?: No VTE Risk Level:: Medical - moderate - high VTE Device Contraindication: Treatment Not Indicated VTE Drug Contraindication: N/A - Med Ordered
[2024-04-27 11:15] VITALS: BP 103/51; PULSE 53; RESP 18; TEMP 36.3; O2SAT 96
--- NOTE | 2024-04-27 13:30 | P.DS_ITS ---
DS: Providers Provider Date of Service: 04/27/24 Date of admission: 04/24/24 14:08 Date of discharge: 04/27/24 Primary care physician: Stephanie Orr MD DS: Diagnosis Discharge Diagnosis (1) COPD exacerbation: Status: Acute DS: Summary Hospital Course Hospital Course: Chief Complaint: Shortness of breath, confusion An 88-year-old gentleman with a past medical history significant for COPD, JAK2- positive myeloproliferative disorder with chronically elevated WBC, subclavian stenosis status post stenting, hypertension, coronary artery disease with a history of NSTEMI, and active tobacco use disorder was last admitted from March 29 to for cellulitis and COPD exacerbation. He presented today with weakness, some left facial droop, and an audible wheeze; however, he is not hypoxic. He has a fever of 102?F, an elevated lactic acid, and a WBC of 22, though his WBC is chronically elevated, CXR shows a right lower lobe pneumonia. A CT head showed no acute findings, and a CTA of the head and neck revealed no large vessel occlusion (LVO). He is already on Eliquis. At the time of evaluation, he no longer had facial droop but appeared confused, and his speech was difficult to understand. Hospital course: 88-year-old male with a history of COPD, JAK2-positive myeloproliferative disorder with chronically elevated WBC, polycythemia vera, vitamin B12 deficiency, history of alcoholism (noncompliant with appointments), subclavian stenosis (status post stenting), hypertension, history of atrial flutter, coronary artery disease with prior NSTEMI, and active tobacco use disorder. He was recently hospitalized (Mar 29) for cellulitis and COPD exacerbation. He presented on this occasion with: * Weakness, transient left facial droop, and audible wheezing * Fever of 102?F * Elevated lactic acid * WBC of 22 (chronically elevated) * CT head: No acute findings * CTA head and neck: No large vessel occlusion (LVO) * Already on Eliquis * At the time of evaluation: No facial droop, confusion, or slurred speech Hospital Course * Right lower lobe pneumonia ? Initiated on broad-spectrum antibiotics, oxygen, and bronchodilators via nebulizer. Treated with Ceftriaxone and Vancomycin for 3 days. Now afebrile, hypoxia has improved. WBC remains elevated due to steroids. He will be transitioned to oral Augmentin and Doxycycline for an additional 5 days. * COPD exacerbation ? Managed with bronchodilators via nebulizer and prednisone 20 mg daily for 5 days. * Altered mental status, concern for CVA ? CT head and neck showed no acute findings, no large vessel occlusion. Confusion likely due to metabolic encephalopathy secondary to hypoxia and pneumonia. Symptoms resolved rapidly, and he remains at baseline mental status. * History of atrial flutter (diagnosed Jan 2024) ? Continue amiodarone 200 mg d aily and Eliquis 5 mg BID. * Acute lactic acidosis ? Likely secondary to COPD exacerbation, not sepsis. * History of JAK2-positive myeloproliferative disorder ? Chronic leukocytosis, polycythemia vera, and thrombocytosis. Platelet count is within normal limits (252), hematocrit is 37, and WBC is currently 36 (was 22 on admission, relatively stable). He does not follow up with hematology/oncology and was last seen over a year ago by Dr. Garzon. Discussed with the patient, and he will follow up as an outpatient. No acute treatment needed at this time. * Coronary artery disease/hyperlipidemia ? Continue statin. Disposition Discharged to [facility] rehab. Time Attestation Discharge Coordination Time (in mins): 45 Quality: Safe Use of Opioids Does Pt have an Active Cancer Diagnosis on the Problem List?: No Quality: Stroke Does the patient have a stroke diagnosis?: No Physical Exam Vital Signs: Vital Signs: Last Vital Signs Temp 97.3 F 04/27/24 11:15 Pulse 53 04/27/24 11:15 Resp 18 04/27/24 11:15 BP 103/51 L 04/27/24 11:15 Pulse Ox 96 04/27/24 11:15 O2 Del Method Nasal Cannula 04/27/24 11:15 O2 Flow Rate 3 04/27/24 11:15 Oxygen Flow Rate 2 04/24/24 06:21 BMI result Body Mass Index 25.9 DS: Data Data Completed and Pending Completed studies during hospitalization [Text1]: Procedures Scientologist of Cardiac Rhythm, Single (02/13/24) Labs on day of discharge: Laboratory Results - last 24 hr 04/27/24 04/27/24 04/27/24 06:24 06:24 06:24 WBC 36.6 H* RBC 6.22 H Hgb 10.5 L Hct 37.4 L MCV 60.1 L MCH 16.9 L MCHC 28.1 L RDW 28.6 H Plt Count 252 MPV Not Reportable Absolute Nucleated RBC 0.060 H Nucleated RBC % (auto) 0.2 Sodium 142 Potassium 3.8 Chloride 106 Carbon Dioxide 26 Anion Gap 14 BUN 21 H Creatinine 1.12 1.14 Estim Creat Clear Calc 39.6 38.9 Estimated GFR > 60 Random Glucose Calcium 04/27/24 06:24 WBC RBC Hgb Hct MCV MCH MCHC RDW Plt Count MPV Absolute Nucleated RBC Nucleated RBC % (auto) Sodium Potassium Chloride Carbon Dioxide Anion Gap BUN Creatinine Estim Creat Clear Calc Estimated GFR > 60 Random Glucose 90 Calcium 8.8 D Preliminary micro results at discharge 04/24/24 07:28 Blood Culture - Preliminary Blood - Venous No growth after 48 hours. 04/24/24 07:28 Blood Culture - Preliminary Blood - Venous No growth after 48 hours. Discharge Plan Discharge Anticipated Discharge Date/Time: 04/27/24 13:05 Patient Disposition: er SNF Discharge Diagnosis: Pneumonia, COPD exacerbation, encephalopathy Referrals: [facility] [Outside] - 1 Week Stephanie Orr MD [Primary Care Provider] - 1 Week Aris Garzon MD [Physician] - 1 Week (for leukocytosis, Jack2 mutation) Discharge Medications: New amoxicillin-pot clavulanate 875-125 mg tablet 1 tab PO BID Qty: 10 0RF doxycycline monohydrate 100 mg capsule 100 mg PO BID Qty: 10 0RF prednisone 20 mg tablet 20 mg PO DAILY Qty: 2 0RF Continued aspirin 81 mg Tablet,Chewable 81 mg PO DAILY amiodarone 200 mg Tablet 200 mg PO DAILY Qty: 30 0RF furosemide 40 mg tablet 20 mg PO DAILY 90 Days Qty: 45 0RF cyanocobalamin (vitamin B-12) 1,000 mcg tablet 1,000 mcg PO DAILY albuterol sulfate 90 mcg/actuation HFA aerosol inhaler 1 puff INHALATION QID PRN (Reason: asthma) albuterol sulfate 2.5 mg /3 mL (0.083 %) solution for nebulization 2.5 mg inhalation TID PRN (Reason: Shortness Of Breath Or Wheezing) metoprolol succinate 50 mg tablet extended release 24 hr 50 mg PO DAILY Trelegy Ellipta 200-62.5-25 mcg blister with device 1 ea INHALATION DAILY vvypnumopaxc-gqrkjpcr-efvnqe Tablet 1 tab PO DAILY apixaban 5 mg tablet 5 mg PO BID Qty: 180 0RF atorvastatin 20 mg tablet 20 mg PO DAILY Discharge Orders: Discharge Order (Routine); Ordered 04/27/24 Ordered By: Van Torres Diet: Advance to usual diet Activity on Discharge: As tolerated Stand Alone Forms: Patient Portal Discharge page Print Language: Maltese Care Plan Goals: recovery from Pneumonia and copd exacerbation Health Concerns: pneumonia acute hypoxic resp failure encephalopathy, now resoved chronic leukocytosis Plan of Treatment: take Augmentin and Doxycyclline as recommended follow up with your doctor shonda week Assessment: see
--- NOTE | 2024-04-27 13:44 | P.CDIM_ITS ---
PROVIDER RESPONSE TEXT: To clarify, the appropriate diagnosis supported by the clinical indicators: Encephalopathy (please specify type): metabolic QUERY TEXT: PHYSICIAN'S DOCUMENTATION REQUEST Date of Query: 04/26/2024 10:07 AM EST Patient Name: Wyatt Shelton Admit Date: 04/24/2024 Dear Van Torres MD, A review of the medical record indicates additional documentation may be needed. Please review below and update the documentation accordingly. Clinical Indicators: altered mental status, confusion concern for CVA, CT no acute finding Eliquis, neuro checks Based on the above, could you clarify if any of the following, is the most likely etiology of the con fusion/altered mental status? Encephalopathy (please specify type) Indicate type such as metabolic, toxic, septic, alcoholic, hypertensive, etc. Dementia Indicate type of dementia, such as Alzheimer's, senile, vascular, Lewy body, etc. Acute delirium Indicate known or suspected etiology, such as postoperative, due to narcotics or other drugs, etc. Baseline dementia Indicate type, such as Alzheimer's, senile, vascular, Lewy body, etc., and any associated behavioral disturbances (aggressive, combative, or violent behavior) Acute or subacute confusional state due to Specify known or suspected etiology Other (explain) Clinically unable to determine (explain) Thank you, Coby Kaplan RN Use of terms such as suspected, likely, concern for, or probable (associated with a specific diagnosi s that is being evaluated, monitored, or treated as if it exists) are acceptable and can be coded in the inpatient se tting, when documented at the time of discharge. Please use your independent medical judgment in providing your response. THIS QUERY IS PART OF THE PERMANENT MEDICAL RECORD
--- NOTE | 2024-04-27 14:40 | MHC.CM.PN ---
04/27/24 12:03 - Case Mgmt Progress Note by Luna Giordano Acct Num: [id number] : 11/29/1945 Patient Age: 78 Per MD, Patient is medically cleared for dc to SNF/STR today. CM met with Patient at bedside and he has accepted a bed offer from [facility] and he will go there by [facility] today at 5:30 PM. CM attempted to inform Primary Contact//Martita @ [phone] but her vm is full;CM did speak with Second Contact/Son/ED @ [phone], who was pleased with the dc plan and agreed to inform Martita of the dc plan. Last IMM addressed yesterday. Initialized on 04/27/24 12:03 - END OF NOTE
[2024-04-27 15:51] VITALS: BP 116/67; PULSE 62; RESP 18; TEMP 36.1; O2SAT 93
== END 2024-04-27 17:55 | disposition skilled nursing facility (03) | DRG 871 ==
LOC: HO.ED 08:09 → HO.EDOVER 14:08 → HO.IMC 15:26
PROVIDERS: Admitting Provider Internal Medicine; Emergency Provider Emergency Medicine; PCP Internal Medicine; Visit Provider Internal Medicine
DX: A41.9 Sepsis, unspecified organism (principal); G93.41 Metabolic encephalopathy; J18.9 Pneumonia, unspecified organism; D47.1 Chronic myeloproliferative disease; J44.0 Chronic obstructive pulmonary disease with (acute) lower respiratory infection; J44.1 Chronic obstructive pulmonary disease with (acute) exacerbation; E87.21 Acute metabolic acidosis; I48.92 Unspecified atrial flutter; F17.210 Nicotine dependence, cigarettes, uncomplicated; E78.5 Hyperlipidemia, unspecified; Z23 Encounter for immunization; I25.10 Atherosclerotic heart disease of native coronary artery without angina pectoris; Z71.6 Tobacco abuse counseling; Z20.822 Contact with and (suspected) exposure to COVID-19; Z95.5 Presence of coronary angioplasty implant and graft; Z79.01 Long term (current) use of anticoagulants; Z79.52 Long term (current) use of systemic steroids; Z79.82 Long term (current) use of aspirin; Z79.899 Other long term (current) drug therapy
CPT/HCPCS: 0241U; 36415; 70450; 70496; 70498; 71045; 80048; 80076; 80202; 81001; 81003; 82565; 82803; 83605; 83690; 83735; 83880; 84145; 84484; 85007; 85025; 85027; 86140; 87040; 90656; 93005; 93971; 94640; 97162; 99285; J0131; J0696; J2919; J3370; J7120; P9047; Q9967

== ENCOUNTER → 2024-04-24 07:13 | Outpatient (BNV) | payer MEDICARE, SELFPAY | PROVIDERS: Admitting Provider Internal Medicine; Emergency Provider Emergency Medicine; PCP Internal Medicine; Visit Provider Internal Medicine Cardiovascular Disease | DX: I44.0 Atrioventricular block, first degree (principal); I44.7 Left bundle-branch block, unspecified | CPT/HCPCS: 93010 ==

== ENCOUNTER → 2024-04-24 07:13 | Outpatient (BNV) | payer MEDICARE, SELFPAY | PROVIDERS: Emergency Provider Emergency Medicine; PCP Internal Medicine; Visit Provider Radiology Vascular & Interventional Radiology | DX: R41.0 Disorientation, unspecified (principal); I65.21 Occlusion and stenosis of right carotid artery; J18.9 Pneumonia, unspecified organism; R22.42 Localized swelling, mass and lump, left lower limb | CPT/HCPCS: 70450; 70496; 71045 ==

== ENCOUNTER → 2024-04-24 14:08 | Outpatient (BNV) | payer MEDICARE, SELFPAY | PROVIDERS: Admitting Provider Internal Medicine; Emergency Provider Emergency Medicine; PCP Internal Medicine; Visit Provider Internal Medicine | DX: J44.1 Chronic obstructive pulmonary disease with (acute) exacerbation (principal); J96.01 Acute respiratory failure with hypoxia; G93.40 Encephalopathy, unspecified | CPT/HCPCS: 99223; 99232 ==

== ENCOUNTER 2024-04-28 08:17 | Inpatient (IN) | payer MEDICARE, OTHER, SELFPAY ==
[2024-04-28] VITALS (11 sets, daily range): BP systolic 68–125; BP diastolic 43–77; PULSE 52–91; RESP 16–26; TEMP 36.1–37.1; O2SAT 92–98; BMI 26.0
--- NOTE | ~2024-04-28 | XR_ITS ---
EXAMINATION: XR CHEST 1 VIEW HISTORY: follow up on pneumonia COMPARISON: Comparison is made with the prior examination dated 05/02/2024. FINDINGS: A single AP portable view of the chest performed at 11:23 AM is submitted. There is prominence of the pulmonary vasculature, consistent with congestion. There are small bilateral pleural effusions. There is opacification of the left lung base and retrocardiac region which may represent atelectasis or pneumonia. There is no pneumothorax. The heart is normal in size given technique. The aorta is calcified. There is degenerative disc disease of the spine. There are surgical clips at the GE junction. XR/XR chest 1V IMPRESSION: Pulmonary vascular congestion and small bilateral pleural effusions. Left lower lobe atelectasis versus pneumonia. Electronically signed by: Aris Gonzalez MD 05/05/2024 11:49 AM EDT
--- NOTE | ~2024-04-28 | CT_ITS ---
CLINICAL HISTORY: New pleural effusions CT chest without contrast Comparison: CR/SR - XR CHEST 1V - 04/28/24 09:16 EST CR - XR CHEST 1V - 04/24/24 07:35 EST Findings: Heart size is normal. Coronary artery calcifications are present. The visualized thyroid and mediastinum are unremarkable. There is bilateral atelectasis of the lung bases. Bilateral moderate pleural effusions are present. Mucus or debris is present within branches of the left lower lobe bronchi. The visualized upper abdomen is unremarkable. Chronic compression deformities at T5, T8, T10 and T11, unchanged from prior. Extensive calcifications on the wall of the aorta and its branch vessels. IMPRESSION: 1. Bilateral moderate pleural effusions with bibasilar atelectasis. This document has been electronically signed by: Toni Rodriguez MD on 04/28/2024 22:25:32
--- NOTE | ~2024-04-28 | XR_ITS ---
CLINICAL HISTORY: sob 1 view chest x-ray Comparison: CR - XR CHEST 1V - 04/30/24 18:04 EST Findings: Interval removal of the right internal jugular central venous catheter. No pneumothorax. Cardiac silhouette is unchanged in size. Slightly interval improvement in areas of mixed interstitial and alveolar prominence throughout the lungs bilaterally. Small bilateral pleural effusions. IMPRESSION: 1. No pneumothorax after central line removal. 2. Improved bilateral infiltrates and/or edema. This document has been electronically signed by: Marty Mckeon MD on 05/02/2024 05:32:14
--- NOTE | ~2024-04-28 | US_ITS ---
CLINICAL HISTORY: rule out DVT Right upper extremity duplex venous Doppler Comparison: None Technique: Grayscale/color and duplex doppler sonographic evaluation of the venous system within right upper extremity. Findings: Right upper extremity Internal jugular vein: Not visualized due to recent central line placement with bandage. Subclavian vein: Patent Axillary vein: Not visualized patient could not move arm for adequate positioning Brachial and basilic veins: Not visualized due to intramuscular hematoma versus mass measuring 6.0 x 5.2 x 5.2 cm obscuring the vessels Cephalic vein: Patent Ulnar and radial veins: Radial vein patent ulnar vein not well visualized due to a probable intramuscular hematoma extending into the forearm. Soft tissues: Intramuscular hematoma versus mass extending from the arm to the forearm. Impression: 1. Limited exam visualized vessels as described were patent some vessels could not be addressed 2. Large intramuscular hematoma versus mass from arm to forearm measuring 6.0 x 5.2 x 5.2 cm correlate clinically. This document has been electronically signed by: Ole Cardenas MD on 04/30/2024 19:42:13
--- NOTE | ~2024-04-28 | XR_ITS ---
EXAMINATION: XR CHEST CLINICAL INFORMATION: SOb COMPARISON: April 24, 2024 TECHNIQUE: Frontal view of the chest was obtained. FINDINGS: Opacities in the lower hemithoraces with indistinct margins of the diaphragm and the inferior cardiomediastinal silhouette. Indistinct margins in the perihilar region. Prominence of the interstitial markings. No pneumothorax. Calcified plaque thoracic aorta with tortuosity. Vascular clips overlapping the lower cardiomediastinal silhouette. Osteopenia versus osteoporosis. Complications the soft tissues of the neck, bilaterally. Multilevel thoracic spondylosis. XR/XR chest 1V IMPRESSION: Pulmonary edema and bilateral moderate to large pleural effusions. Electronically signed by: Kj Rivera MD 04/28/2024 09:32 AM [facility]
--- NOTE | ~2024-04-28 | US_ITS ---
CLINICAL HISTORY: rule out DVT Right lower extremity duplex venous Doppler Comparison: US - US VENOUS DUPLEX LE RT - 07/04/20 11:51 EDT Technique: Grayscale/Color/Duplex Doppler sonographic evaluation of the deep venous system within the right lower extremity. Findings: Right lower extremity Common femoral vein: Patent CFV/GSV junction: Patent Femoral vein: Patent Popliteal vein: Patent Infrapopliteal veins: Patent where seen Soft tissue: No focal abnormality Impression: 1. Negative for right lower extremity DVT. 2. No Blake's cyst This document has been electronically signed by: Ole Cardenas MD on 04/30/2024 19:31:35
--- NOTE | ~2024-04-28 | XR_ITS ---
CLINICAL HISTORY: central line placement 1 view chest x-ray. Comparison: None Findings: Normal lung volumes. Stable bilateral interstitial and airspace disease. Probable small layering pleural effusions have improved. Passive venous congestion. Stable cardiomegaly. No midline shift or tracheal deviation. No acute fracture. Right IJ CVC tip SVC. Impression: 1. Stable interstitial and bilateral airspace disease and probably improving small pleural effusions either cardiogenic or pneumonic. Right IJ CVC tip atriocaval junction. This document has been electronically signed by: Ole Cardenas MD on 04/30/2024 18:22:51
--- NOTE | ~2024-04-28 | US_ITS ---
EXAMINATION: US CHEST CLINICAL INFORMATION: Hypoxia, bilateral moderate pleural effusions. COMPARISON: None available. TECHNIQUE: Routine imaging of the pleural space is performed. FINDINGS: There is bilateral anechoic pleural effusion slightly greater on the right side. However patient's blood pressure is 2 low to performed thoracentesis chest exam was canceled. Cancellation results were made aware to the referring physician's US/US chest IMPRESSION: Bilateral pleural effusion right greater than left. Electronically signed by: Bridger Gardner MD 04/30/2024 03:05 PM [facility]
--- NOTE | 2024-04-28 08:32 | ECG_ITS ---
Test Reason : sob Blood Pressure : */* mmHG Vent. Rate : 53 BPM Atrial Rate : 53 BPM P-R Int : 264 ms QRS Dur : 118 ms QT Int : 438 ms P-R-T Axes : 26 -76 31 degrees QTcB Int : 410 ms Sinus bradycardia with 1st degree A-V block Incomplete right bundle branch block Left anterior fascicular block Anteroseptal infarct , age undetermined Abnormal ECG When compared with ECG of 24-Apr-2024 08:02, Incomplete right bundle branch block is seen on this study Referred By: Pepito Souza Electronically Signed By: HEATHER MARIA MD
--- NOTE | 2024-04-28 08:35 | ED_ITS ---
HPI - SOB/Dyspnea General Chief Complaint: Dyspnea Stated Complaint: COPD Time Seen by Provider: 04/28/24 08:30 Source: EMS Mode of arrival: EMS History of Present Illness HPI Narrative: This is 88 years old male just discharged yesterday from [facility] for COPD and pneumonia presented to the emergency department [facility] the prison he was satting about 73% on 5 L he was placed on high-flow O2 MD elicited complaint: shortness of breath Pertinent past history: COPD and pneumonia Onset (ago): hour(s) (5) Context: recent illness Timing: constant Severity: moderate Exacerbating factors: nothing Related Data Home Medications ?Medication ?Instructions ?Recorded ?Confirmed atorvastatin 20 mg tablet 20 mg PO DAILY@199902/22/20 04/28/24 albuterol sulfate 2.5 mg/3 mL 2.5 mg inhalation TID PRN 02/13/24 04/28/24 (0.083 %) solution for nebulization Shortness Of Breath Or Wheezing fluticasone fur. 200 mcg-umeclid 1 ea inhalation DAILY@79902/13/24 04/28/24 62.5 mcg-vilant 25 mcg inhalat.powder (Trelegy Ellipta) metoprolol succinate 50 mg 50 mg PO DAILY@79902/13/24 04/28/24 tablet,extended release 24 hr zdsqgjhloeli-uwommwww-jpmxle tablet 1 tab PO DAILY@79902/13/24 04/28/24 aspirin 81 mg chewable tablet 81 mg PO DAILY@79903/30/24 04/28/24 albuterol sulfate 90 mcg/actuation 1 puff inhalation QID PRN asthma 04/24/24 04/28/24 aerosol inhaler cyanocobalamin (vitamin B-12) 1,000 mcg PO DAILY@79904/24/24 04/28/24 1,000 mcg tablet acetaminophen 325 mg tablet 650 mg PO Q6H PRN pain or fever 04/28/24 04/28/24 amiodarone 200 mg tablet 200 mg PO DAILY@79904/28/24 04/28/24 bisacodyl 10 mg rectal suppository 10 mg MO DAILY PRN Constipation 04/28/24 04/28/24 furosemide 20 mg tablet 20 mg PO DAILY@0800 03/05/25 03/05/25 magnesium hydroxide 400 mg/5 mL 30 ml PO DAILY PRN Constipation 04/28/24 04/28/24 oral suspension (Milk of Magnesia) prednisone 20 mg tablet 20 mg PO DAILY@0800 04/28/24 04/28/24 sodium phosphates 19 gram-7 118 ml MO DAILY PRN Constipation 04/28/24 04/28/24 gram/118 mL enema (Fleet Enema) Previous Rx's ?Medication ?Instructions ?Recorded apixaban 5 mg tablet 5 mg PO BID #180 tabs 02/15/24 amoxicillin 875 mg-potassium 1 tab PO BID #10 tabs 04/27/24 clavulanate 125 mg tablet doxycycline monohydrate 100 mg 100 mg PO BID #10 caps 04/27/24 capsule Allergies Allergy/AdvReac Type Severity Reaction Status Date / Time No Known Allergies Allergy Verified 04/28/24 08:50 [No Known Allergies*] Review of Systems 2 Constitutional: Constitutional: Reports no additional constitutional complaints ENT: Reports system reviewed and no additional complaints, except as documented Cardiovascular: Cardiovascular: Reports no additional cardiovascular complaints Respiratory: Respiratory: Reports as per [facility] Past Medical History Attestation statement: The following information was validated with the patient. Medical History COPD (chronic obstructive pulmonary disease) Leukocytosis Polycythemia Fracture High cholesterol HTN (hypertension) Heart attack Surgical History S/P angiogram of extremity Hx of rotator cuff surgery H/O arthroscopy of shoulder Family History Family History Daughter Aortic aneurysm Social History Social History Household Members: Spouse and Family Housing: House Do you presently have visiting nurse or other home services: No Patient Tobacco Use Status: Current everyday Tobacco user Tobacco use type: Cigarette Cigarette Packs Per Day: 1 Cigarettes Per Day: 20.0 Smoked in Last 30 Days: No Second Hand Smoke Exposure: No Use of substances other than those prescribed or required for medical reasons: No Advance Directives: No Advance Directives Information Provided: Yes Do you have a plan to hurt others: No Plan service: No Physical Exam 2 Vital Signs: Vital Signs: Last Vital Signs Temp 98.6 F 04/28/24 08:46 Pulse 53 04/28/24 09:06 Resp 16 04/28/24 09:06 BP 108/77 04/28/24 08:46 Pulse Ox 94 04/28/24 11:38 O2 Del Method Nasal Cannula 04/28/24 11:38 O2 Flow Rate 4 04/28/24 11:38 Oxygen Flow Rate 6 04/28/24 08:46 BMI result Body Mass Index 26.0 Const: General: cooperative Nutritional Appearance: well nourished O rientation/consciousness: patient oriented x3 Limitations: no limitations HEENT: Head: Yes normal to inspection General nose exam: Normal external nose present Face and sinus: Yes normal facial exam Mouth: Normal oral and palatal mucosa present Neck: Neck: Yes normal visual inspection and Yes full ROM Chest: Chest palpation & inspection: normal inspection of the chest Resp: Auscultation: rhonchi and wheezes Cardio: Jugular venous distension: no JVD Rate: regular rate Rhythm: r egular rhythm GI: Inspection: Yes normal to inspection Palpation (GI): Soft to palpation, not firm and nontender Skin: General skin exam: no rashes or lesions noted and elasticity normal Neuro: General: patient oriented x3 Course Reevaluation(s) Reevaluation #1: Patient difficult IV I placed IV and ultrasound 20 gauge right antecubital area blood obtained line was flushed Time: 09:13 Medications Administered Discontinued Medications Generic Name Dose Route Start Last Admin Trade Name Freq PRN Reason Stop Dose Admin Albuterol Sulfate 5 mg/ 0 mg 04/28/24 08:55 04/28/24 09:06 Albuterol/Ipratropium 3 ml INHALE 04/28/24 08:56 1 each ONCE ONE Administration Piperacillin Sod/Tazobactam 100 mls @ 200 mls/hr 04/28/24 10:09 04/28/24 11:40 Sod 4.5 gm/ Sodium Chloride IV 04/28/24 10:38 Infused ONCE ONE Infusion Methylprednisolone Sodium Succinate 125 mg 04/28/24 08:33 04/28/24 09:23 Methylprednisolone Sod Succ 125 Mg/2 Ml Vial IVPUSH 04/28/24 08:34 125 mg ONCE ONE Administration Medical Decision Making Medical Decision Making MDM Narrative: Patient presented with shortness of breath just discharged yesterday we will obtain a chest x-ray labs and reassessed the Differential Diagnosis Differential Diagnoses: The differential diagnosis associated with the presentation includes COPD exacerbation/pneumonia/pneumothorax Admission/Observation Consideration of admission/observation: Escalation of care including admission/observation considered Consult Healthcare Provider Management of the patient was discussed with: Hospitalist Lab Data MDM Lab Attestation statement: I reviewed the patient's lab results. 04/28/24 09:12 04/28/24 09:12 Labs: Lab Results 04/28/24 04/28/24 04/28/24 Range/Units 09:12 09:18 10:36 WBC 30.4 H* (4.8-10.8) X10*3/uL RBC 6.32 H (4.60-5.80) X10*6/uL Hgb 10.4 L (14.0-18.0) g/dl Hct 38.1 L (42.0-52.0) % MCV 60.3 L (80.0-98.0) fL MCH 16.5 L (27.0-33.0) pg MCHC 27.3 L (31.0-36.0) g/dl RDW 28.8 H (11.0-16.0) % Plt Count 321 D (160-400) X10*3/uL MPV Not Reportable Immature Gran % (Auto) Cancelled Neut % (Auto) Cancelled Lymph % (Auto) Cancelled Kleberg % (Auto) Cancelled Eos % (Auto) Cancelled Baso % (Auto) Cancelled Lymph # (Auto) Cancelled Kle[place] # (Auto) Cancelled Eos # (Auto) Cancelled Baso # (Auto) Cancelled Abs Immat Gran (auto) Cancelled Absolute Neuts (auto) Cancelled Absolute Nucleated RBC 0.100 H (0.0-0.012) X10*3/uL Nucleated RBC % (auto) 0.3 H (0.0-0.2) /100WBC Neutrophils % (Manual) 84 H (45-73) % Band Neutrophils % 9 H (3-5) % Lymphocytes % (Manual) 1 L (20-40) % Monocytes % (Manual) 1 L (2-11) % Eosinophils % (Manual) 5 H (0-4) % Abs Neuts (Manual) 28.3 H (2.0-8.3) X10*3/uL Lymphocytes # (Manual) 0.3 L (1.2-4.9) X10*3/uL Monocytes # (Manual) 0.3 (0.1-1.2) X10*3/uL Eosinophils # (Manual) 1.5 H (0.0-0.4) X10*3/uL Platelet Estimate NORMAL (NORMAL) Large Platelets PRESENT Plt Morphology Comment NOTED RBC Morphology NOTED Polychromasia 1+ (0-2) /OIF Hypochromasia 3+ (>30) /OIF Microcytosis 3+ (>30) /OIF Spherocytes 3+ (>5) /OIF Ovalocytes 2+ (15-30) /OIF [place] Cells 1+ (0-2) /OIF Schistocytes 2+ (3-5) /OIF Smear Tech's Comments MANUAL DIFF PT 21.6 H D (10.9-12.4) SEC INR 1.9 H (0.9-1.1) APTT 38.3 H D (26.0-36.8) SEC VBG pH 7.45 H (7.32-7.43) VBG pCO2 70 mmHg VBG pO2 22 mmHg VBG HCO3 49 H (22-26) mmol/L VBG O2 Saturation < 30.0 % VBG Base Excess 22.1 mmol/L Sodium 143 (135-145) mmol/L Potassium 3.5 (3.3-5.1) mmol/L Chloride 104 (96-108) mmol/L Carbon Dioxide 32 H (22-29) mmol/L Anion Gap 11 L (12-20) BUN 25 H (9-16) mg/dL Creatinine 1.28 (0.5-1.4) mg/dL Estim Creat Clear Calc 37.2 Estimated GFR 53 Random Glucose 91 (60-115) mg/dL Calcium 8.9 (8.4-10.2) mg/dL Total Bilirubin 0.4 (0.0-1.0) mg/dL AST 29 (5-37) U/L ALT 31 (0-40) U/L Alkaline Phosphatase 83 (39-117) U/L Troponin I High Sens 89.9 H D (<3.5-35.0) ng/L B-Natriuretic Peptide 771 H (<100) pg/mL Total Protein 7.5 (6.5-8.0) g/dL Albumin 4.1 (3.5-5.0) g/dL Independent Interpretation I performed an independent interpretation of an: Plain X-Ray Interpretation: I personally reviewed the chest x-ray of left pleural effusion Radiology Impression Discussion of test interpretation with radiology: I have reviewed the radiologist's reading. Chronic Conditions Patient?s care impacted by: Other (COPD) Core Measures AMI core measures followed: No Procedures EJ/Peripheral Line Arm L: Time Out Performed: Yes Skin Cleansed in Sterile Fashion: Yes Size (gauge): 20 IV Secured and Dressing Applied: Yes Patient Tolerated Procedure: well Additional Comments: Prior IV infiltrated, I placed under ultrasound a 20 gauge long catheter in the left basilic vein good flash good blood return. Critical Care Time Critical Care Time Critical Care Time: Yes Total Critical Care Time: 60 Attestation: respiratory distress/multiple nebs Discharge Plan Discharge Clinical Impression: Asthma exacerbation in COPD, Pleural effusion Prescriptions: No Action aspirin 81 mg Tablet,Chewable 81 mg PO DAILY@0800 cyanocobalamin (vitamin B-12) 1,000 mcg tablet 1,000 mcg PO DAILY@0800 albuterol sulfate 90 mcg/actuation HFA aerosol inhaler 1 puff INHALATION QID PRN (Reason: asthma) amoxicillin-pot clavulanate 875-125 mg tablet 1 tab PO BID Qty: 10 0RF Rx Instructions: stop date: 05/02/24 doxycycline monohydrate 100 mg capsule 100 mg PO BID Qty: 10 0RF Rx Instructions: stop date: 05/02/24 albuterol sulfate 2.5 mg /3 mL (0.083 %) solution for nebulization 2.5 mg inhalation TID PRN (Reason: Shortness Of Breath Or Wheezing) metoprolol succinate 50 mg tablet extended release 24 hr 50 mg PO DAILY@0800 Trelegy Ellipta 200-62.5-25 mcg blister with device 1 ea INHALATION DAILY@0800 bheviqgrwvbs-jahjqgkb-tyilon Tablet 1 tab PO DAILY@0800 apixaban 5 mg tablet 5 mg PO BID Qty: 180 0RF acetaminophen 325 mg Tablet 650 mg PO Q6H PRN (Reason: pain or fever) magnesium hydroxide [Milk of Magnesia] 400 mg/5 mL Suspension 30 ml PO DAILY PRN (Reason: Constipation) bisacodyl 10 mg Suppository 10 mg MO DAILY PRN (Reason: Constipation) Fleet Enema 19-7 gram/118 mL Enema 118 ml MO DAILY PRN (Reason: Constipation) furosemide 20 mg Tablet 20 mg PO DAILY@0800 amiodarone 200 mg tablet 200 mg PO DAILY@0800 prednisone 20 mg tablet 20 mg PO DAILY@0800 Rx Instructions: stop date: 04/29/24 atorvastatin 20 mg tablet 20 mg PO DAILY@1999 Print Language: Welsh
[2024-04-28] MEDS: Albuterol Sulfate 5 MG, Albuterol/Iprat 2.5/0.5MG 3 ML 3 ML INHALE (09:06)
[2024-04-28 09:19] LABS: Venous Blood Gas Refer to POC result
[2024-04-28 09:22] LABS: VBG Base Excess 22.1 mmol/L; VBG HCO3 49 mmol/L (22-26); VBG O2 % Saturation < 30.0 %; VBG pCO2 70 mmHg; VBG pH 7.45 (7.32-7.43); VBG pO2 22 mmHg
[2024-04-28 09:23] LABS: Hematocrit 38.1 % (42.0-52.0); Hemoglobin 10.4 g/dl (14.0-18.0); Mean Corpuscular HGB Conc 27.3 g/dl (31.0-36.0); Mean Corpuscular Hemoglobin 16.5 pg (27.0-33.0); NRBC Pct Auto 0.3 /100WBC (0.0-0.2); PLT CLUMP 1; Red Blood Count 6.32 X10*6/uL (4.60-5.80); Red Cell Distribution Width 28.8 % (11.0-16.0)
[2024-04-28] MEDS: methylPREDNISolone Sod Succ 125 MG/2 ML VIAL IVPUSH (09:23)
[2024-04-28 09:34] LABS: Mean Corpuscular Volume 60.3 fL (80.0-98.0)
[2024-04-28 09:35] LABS: PLT ABN DIST 1
[2024-04-28 09:36] LABS: Alanine Aminotransferase 31 U/L (0-40); Albumin Level 4.1 g/dL (3.5-5.0); Alkaline Phosphatase 83 U/L (39-117); Anion Gap 11 (12-20); Aspartate Amino Transferase 29 U/L (5-37); Bilirubin Total 0.4 mg/dL (0.0-1.0); Blood Urea Nitrogen 25 mg/dL (9-16); Calcium 8.9 mg/dL (8.4-10.2); Carbon Dioxide 32 mmol/L (22-29); Chloride 104 mmol/L (96-108); Creatinine Clr Calc Pharmacy 37.2; Estimated Glomerular Filt Rate 53; Glucose Random 91 mg/dL (60-115); Potassium 3.5 mmol/L (3.3-5.1); Sodium 143 mmol/L (135-145); Total Protein 7.5 g/dL (6.5-8.0); White Blood Count 30.4 X10*3/uL (4.8-10.8)
[2024-04-28 09:37] LABS: INTERNATIONAL NORM RATIO 1.9 (0.9-1.1); Prothrombin Time 21.6 SEC (10.9-12.4)
[2024-04-28 09:39] LABS: Partial Thromboplastin Time 38.3 SEC (26.0-36.8)
[2024-04-28 09:45] LABS: Troponin-I High Sensitivity 89.9 ng/L (<3.5-35.0)
--- OUTSIDE RECORDS SUMMARY | 2024-04-28 10:21 | XMS_ITS ---
Author Organization Aris Garzon III, MD Address [address] [place] [address] [place] [address] Care Team Providers Care Bag Grader Name Role Phone Dominga LÓPEZ, [facility] Primary Care Provider Aris Jeffries [phone] Allergies Allergen (clinical drug ingredient) Drug/Non Drug [...] Date Provider Diagnosis Aris Garzon III, MD [address] [place] [address] [place] [address] 04/16/2024 Aris Garzon B12 deficiency E53.8 Assessments [...] Notes * Ketan SHELTONOB:1935 (88 yo M)Acc No.[id number]:04/16/2024 Progress Notes Patient:?Valentin SHELTONmarcellus Provider:?Aris Garzon MD :1935???Age:88 Y???Sex:Male Mati e:04/16/2024 Address:[address] [place] [address] MELANIE Mandujano [id number] Pcp:Stephanie Orr MD Subjective: * Chief Complaints: [...] ankle , right rotator cuff surgery 03/1990, [facility] vein surgery 05/2020. * Hospitalization/Major Diagno [...] been for many years. He lives in [place], [place]. He is retired. He consumes about [...] Garzon MD Date:?03/28 Generated for Tee veloz/Shanell/Rodriitting on:?04/28/2024 10:21 AM EST History and Physical Notes * [...]
--- OUTSIDE RECORDS SUMMARY | 2024-04-28 10:21 | XMS_ITS | Patient Health Record ---
Author Organization Aris Garzon III, MD Address [address] [facility] [place] [address] Care Team Providers Care Steam Brush Operator Name Role Phone Dominga LÓPEZ, [facility] Primary Care Provider Aris Jeffries Unavailable [phone] Allergies Allergen (clinical drug ingredient) Drug/Non Drug [...] User Heavy cigarett e smoker (20-39 cigs/day) Alcohol Screen Question Answer Notes Did you have a drink containing alcohol in the p ast year? No Points 0 Interpretation Negative Problems Problem Type SNOMED Code ICD Code Onset Dates Problem Status W/U Status Risk Notes Problem 37897933 Hyperlipidemia (E78.5) Active confirmed Comprehensive bloodwork with a fasting profile has been ordered. These will be forwarded to primary care. Problem Polycythemia vera (601685474) Polycythemia vera (D45) Active confirmed He has been well controlled without need for aggressive treatment. Compressive blood work has been ordered to be done in the next few days. Problem 703721661 B12 deficiency (E53.8) Active confirmed Comprehensive blood work is not available. It was ordered with a vitamin B12 level. He will continue on supplementation . 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 I offered to do so today but he declined wanting to stay on the current dose. Problem 64415398 Coronary artery disease (I25.10) Active confirmed He denies a ny recent angina and has had no hospitalization s. He has been compliant wwith his medication. Problem 07783039 Tobacco dependence (F17.200) Active confirmed I strongly encourage smoking cessation. We have discussed several strategies for this. He continues to smoke up packages of cigarettes daily. Problem 153252724 Major depression (F32.9) Active confirmed He is no longer depressed and says he feels well. However, he has missed several appointments, which is a long-standing pattern with him and his family. Problem 00134109 COPD (chronic obstructive pulmonary disease) (J44.9) Active confirmed He is breat cielo room air comfortably. He spoke with me on the phone at length. He was continuing her current medications. I strongly recommended smoking cessation. Problem 388451590 Pulmonary nodule (R91.1) Active confirmed Problem 38601917 Colonic polyp (K63.5) Active confirmed Problem 797352243 Peripheral arterial disease (I73.9) Active confirmed 2 weeks ago, he had vascular surgery to reverse mass to the office on the right groin for occlusive disease. He now has what appears to be a deep venous thrombosis right lower extremity below the knee. He was sent for an ultrasound of the emergency room. Problem 628948500 Macrocytosis (D75.89) Active confirmed Compprehensive blood work witth a CBC has been ordered. Problem 073126310 Rotator cuff tea r (M75.100) Active confirmed The PSA has fallen from 5.9-3.0. If we'll be followed carefully without treatment. Problem 484809471 Atrial tachycardia (I47.1) Active confirmed He denies any episodes of tachycardia recently. He controlled sinus rhythm today. Problem Benign prostatic hypertrophy without outflow obstruction (852477886) Benign prostatic hyperplasia, unspecified whether lower urinary tract symptoms present (N40.0) Active confirmed His prostatism is stable twice a night. We reviewed lifestyle modifications accordingly made to reduce nocturia. Encounters Encounter Location Date Provider Diagnosis Aris Garzon III, MD [address] [place] [address] [address] LE[address]G [address] [place] [address], [place] [address] 04/28/2024 Aris Garzon Plan Of Treatment Pending Test Test Name Order Date PROFILE, FASTING (COMPREHENSIVE METABOLI C) 06/24/2022 PROFILE, FASTING (COMPREHENSIVE METABOLI C) 03/26/2023 PROFILE, RANDOM (COMPREHENSIVE METABOLIC ) 07/12/2019 PROFILE, RANDOM (COMPREHENSIVE METABOLIC ) 07/12/2021 PROFILE, RANDOM (COMPREHENSIVE METABOLIC ) 07/04/2020 PROFILE, RANDOM (COMPREHENSIVE METABOLIC ) 03/23/2021 PROFILE, RANDOM (COMPREHENSIVE METABOLIC ) 12/15/2020 PROFILE, RANDOM (COMPREHENSIVE METABOLIC ) 02/03/2020 PROFILE, RANDOM (COMPREHENSIVE METABOLIC ) 09/15/2020 FERRITIN 07/12/2021 VITAMIN B12 AND FOLATE 09/15/2020 VITAMIN B12 AND FOLATE 07/04/2020 VITAMIN B12 AND FOLATE 03/23/2021 B12 07/12/2019 B12 06/24/2022 B12 07/12/2021 B12 12/15/2020 B12 02/03/2020 PSA, TOTAL 12/15/2020 PSA, TOTAL 09/15/2020 PSA, TOTAL 03/26/2023 PSA, TOTAL 07/12/2019 PSA, TOTAL 06/24/2022 PSA, TOTAL 03/23/2021 CBC w DIFF 03/23/2021 CBC w DIFF 02/03/2020 CBC w DIFF 12/15/2020 CBC w DIFF 09/15/2020 CBC w DIFF 07/12/2019 CBC w DIFF 06/24/2022 CBC w DIFF 10/21/2019 CBC w DIFF 07/04/2020 CBC w DIFF 05/05/2019 CBC w DIFF 07/12/2021 SED RATE (ESR) 03/26/2023 ALPHA-FETOPROTEIN,TUMOR MARKER CBC WITH AUTO DIFF 03/26/2023 Ferritin 03/26/2023 Ferritin 12/15/2020 Lipid Panel 03/26/2023 Lipid Panel 06/24/2022 Vitamin B12 03/26/2023 CT lung screening 06/24/2022 Insurance Providers Payer Name Payer Address Payer Phone Subscriber Number Group Number Insured Name Patient Relationship to Insured Coverage Start Date Coverage End Date [employer] PREFERRED [address] [place] [address] [id number] Wyatt Shelton Self - patient is the insured MEDICARE NGS [address] [place] [id number] Wyatt Shelton Self - patient is the [...]
--- OUTSIDE RECORDS SUMMARY | 2024-04-28 10:21 | XMS_ITS | Encounter Summary ---
Author Organization [facility] Address [address] [place] [address] Care Team Providers Care Shop Clerk Name Role Phone Stephanie Gillespie Primary Care Provider [phone] Encounter Details Date Type Department Care Team (Late st Contact Info) Description 04/28/2020 Orders Only [facility] 2 Rad ACT [address] [place] [address] Hernan Keen MD [address] [place] [address] Social History Tobacco Use Types Packs/Day Years [...] on filedocumented in this encounter Care Teams Shop Clerk Relationship Specialty Start Date End Date Stephanie Gillespie [address] [address] PCP - General Internal Medicine 04/17/20 documented as of this encounter
--- OUTSIDE RECORDS SUMMARY | 2024-04-28 10:21 | XMS_ITS | Encounter Summary ---
Author Organization [facility] Address [address] [place] [address] Care Team Providers Care Geosciences Professor Name Role Phone Stephanie Gillespie Primary Care Provider [phone] Encounter Details Date Type Department Care Team (Late st Contact Info) Description 05/09/2020 Orders Only [facility] 2 Rad ACT 1 [address] [place] [address] Hernan Keen MD [address] [place] [address] Social History Tobacco Use Types Packs/Day Years [...] on filedocumented in this encounter Care Teams Geosciences Professor Relationship Specialty Start Date End Date Stephanie Gillespie [address] [address] PCP - General Internal Medicine 04/17/20 documented as of this encounter
--- OUTSIDE RECORDS SUMMARY | 2024-04-28 10:21 | XMS_ITS | Encounter Summary ---
Author Organization [facility] Address [address] [place] [address] Care Team Providers Care Resident Services Coordinator Name Role Phone Mark Chance MD Primary Care Provider [phone] Encounter Details Date Type Department Care Team (Late st Contact Info) Description 04/28/2024 Lab Requisition [facility] - Main Lab [address] [facility] [place] [address] Mark Chance MD [address] [place], [place] [id number] Pneumonia, unspecified organism; Chronic obstructive pulmonary disease, unspecified (CMS/HCC); Hyperlipidemia, unspecified; Vitamin D deficiency, unspecified; Vitamin B12 deficiency anemia, unspecified Social History Tobacco Use Types Packs/Day Years Used Date Smoking Tobacco: Never Assessed Sex and Gender Information Value Date Recorded Sex Assigned at Not on file Legal Sex Male 8:27 PM EST Gender Identity Not on file Sexual Orientation Not on file documented as of this encounter Plan of Treatment Pending Results Name Type Priority Associated Diagnoses Date /Time Complete blood count Lab Routine Pneumonia, unspecified organism Chronic obstructive pulmonary disease, unspecified (CMS/HCC) Hyperlipidemia, unspecified Vitamin D deficiency, unspecified Vitamin B12 deficiency anemia, unspecified 04/28/2024 5:40 AM EST Comprehensive metabolic panel Lab Routine Pneumonia, unspecified organism Chronic obstructive pulmonary disease, unspecified (CMS/HCC) Hyperlipidemia, unspecified Vitamin D deficiency, unspecified Vitamin B12 deficiency anemia, unspecified 04/28/2024 5:40 AM EST Lipid panel with reflex to direct LDL Lab Routine Pneumonia, unspecified organism Chronic obstructive pulmonary disease, unspecified (CMS/HCC) Hyperlipidemia, unspecified Vitamin D deficiency, unspecified Vitamin B12 deficiency anemia, unspecified 04/28/2024 5:40 AM EST Vitamin B12 Lab Routine Pneumonia, unspecified organism Chronic obstructive pulmonary disease, unspecified ([facility]) Hyperlipidemia, unspecified Vitamin D deficiency, unspecified Vitamin B12 deficiency anemia, unspecified 04/28/2024 5:40 AM EST Vitamin D 25 hydroxy Lab Routine Pneumonia, unspecified organism Chronic obstructive pulmonary disease, unspecified ([facility]/HCC) Hyperlipidemia, unspecified Vitamin D deficiency, unspecified Vitamin B12 deficiency anemia, unspecified 04/28/2024 5:40 AM EST Folate Lab Routine Pneumonia, unspecified organism Chronic obstructive pulmonary disease, unspecified ([facility]) Hyperlipidemia, unspecified Vitamin D deficiency, unspecified Vitamin B12 deficiency anemia, unspecified 04/28/2024 5:40 AM EST documented as of this encounter Visit Diagnoses Diagnosis Pneumonia, unspecified organism Chronic obstructive pulmonary disease, unspecified ([facility]) Hyperlipidemia, unspecified Vitamin D deficiency, unspecified Vitamin B12 deficiency anemia, unspecified documented in this encounter Care Teams Resident Services Coordinator Relationship Specialty Start Date End Date Mark Chance MD [address] [place] [address] [address] [place] [address] PCP - General Geriatric Medicine 04/28/24 documented as of this encounter
--- OUTSIDE RECORDS SUMMARY | 2024-04-28 10:21 | XMS_ITS | Clinical Summary ---
Author Organization [address] [facility] Address [address] [place] [address] Phone Care Team Providers Care Supervisor Phosphorus Processing Name Role Phone Mark Chance MD Primary Care Provider [phone] Encounters Date Type Department Care Team Description 04/28/2024 Lab Requisition [facility] - Main Lab [address] [facility] [place] [address] Mark Chance MD Pneumonia, unspecified organism; Chronic obstructive pulmonary disease, unspecified (CMS/HCC); Hyperlipidemia, unspecified; Vitamin D deficiency, unspecified; Vitamin B12 deficiency anemia, unspecified from Last 3 Months Social History Tobacco Use Types Packs/Day Years Used Date Smoking Tobacco: Never Assessed Sex and Gender Information Value Date Recorded Sex Assigned at Not on file Legal Sex Male 8:27 PM EST Gender Identity Not on file Sexual Orientation Not on file Plan of Treatment Health Maintenance Due Date Last Done Comments DTaP,Tdap,and Td Vaccines (1 - Tdap) 08/30/1954 Pneumococcal Vaccine: 50+ Ye ars (1 of 1 - PCV) 08/30/1985 Zoster Vaccines (1 of 2) 08/30/1985 RSV Immunization Patients 60 + Years Old (1 - 1-dose 75+ series) 08/30/2010 COVID-19 Vaccine ( - 2023-2 5 season) 2023 Influenza Vaccine [...] patient's age to complete this topic Meningococcal B Vacine Aged Out No lo nger eligible based on patient's age to complete this topic RSV Immunization Patients Un marisol 20 months Aged Out No longer eligible b ased on patient's age to complete this topic Varicella Vaccines Aged Out No longer eligible based on patient's age to complete this topic Insurance MEDICARE [facility] [employer] [facility] Care Teams Supervisor Phosphorus Processing Relationship Specialty Start Date End Date Mark Chance MD [address] [place] [address] [address] [place] [address] PCP - General Geriatric Medicine 04/28/24
--- OUTSIDE RECORDS SUMMARY | 2024-04-28 10:21 | XMS_ITS ---
Author Organization Aris Garzon III, MD Address [address] [address] Care Team Providers Care Automotive Painter Name Role Phone Dominga LÓPEZ, Stephanie Primary Care Provider Aris Jeffries [phone] REASON FOR VISIT follow up Encounters Encounter Location Date Provider Diagnosis Aris Garzon III, MD [address] [place] [address] [place] [address] 02/27/2024 Aris Garzon Plan Of Treatment No Information Progress Notes * Ketan SHELTONOB:1935 (88 yo M)Acc No.[id number]:02/27/2024 Progress Notes Patient:?Wyatt SHELTON Provider:?Aris Garzon MD :1935???Age:88 Y???Sex:Male Mati e:02/27/2024 Address:[address] [place], [place] [id number] Pcp:Stephanie Orr MD Subjective: * Chief Complaints: [...] Provider:?Aris Garzon MD Date:?04/2024 Generated for Caydeni magdiel/Fapaulg/eTransmitting on:?04/28/2024 10:20 AM EST
--- OUTSIDE RECORDS SUMMARY | 2024-04-28 10:21 | XMS_ITS | Clinical Summary ---
Author Organization [facility] Address [address] [place] [address] Care Team Providers Care Director Integrated Name Role Phone Stephanie Gillespie Primary Care Provider [phone] Allergies No known active allergies Medications atorvastatin [...] this topic Medical Devices Implanted Type Area Supervisor Paper Machine Device Identifier Shelf Expiration Date Model / Serial / Lot Patch Carotid Peripatch [id number] Xenosure - [id number] Implanted:Qty: 1 on 06/19/2020 by Bo Brooks MD at [facility] Implant Right: Grokori CARROLLTRE VASCULAR 02/20/2026 [id number] / / [id number] Description:Soaked in 500 ml of NACL for 2 mins prior to implanting. NACL lot # [id number]. Exp date April 2023 Stent Vascular Balloon Expandable [id number] 8fr Viabahn - [id number] - [id number] Implanted:Qty: 1 on 06/19/2020 by Bo Brooks MD at [facility] Stent Right: Groin W L GORE 09/21/2022 [id number] / [id number] / Description:iliac Insurance [place] [address] Advance Directives * Full Code (Latest Code Status on File) Date Activated Date Inactivated Comments 06/19/2020 10:39 AM 06/20/2020 5:25 PM Care Teams Director Integrated Relationship Specialty Start Date End Date Stephanie Gillespie [address] [address] PCP - General Internal Medicine 04/17/20
--- OUTSIDE RECORDS SUMMARY | 2024-04-28 10:21 | XMS_ITS ---
Author Organization Aris Garzon III, MD Address [address] [place] [address] Care Team Providers Care Whitesmith Name Role Phone Dominga LÓPEZ, [facility] Primary Care Provider Aris Jeffries [facility] [phone] REASON FOR VISIT Admitted to Rehab Encounters Encounter Location Date Provider Diagnosis Aris Garzon III, MD [address] [place] [address] [place] [address] 04/28/2024 Aris Garzon Plan Of Treatment No Information Progress Notes * Ketan VUOB:1935 (88 yo M)Acc No.[id number]:04/28/2024 Patient:?Garry VUrona :1935???Age:88 Y???Sex:Male Address:[address] [place] [address], [address] * true * Date:? Generated for Tee veloz/Shanell/eTransmitting on:?04/28/2024 10:20 AM EST
--- OUTSIDE RECORDS SUMMARY | 2024-04-28 10:21 | XMS_ITS | Referral Summary ---
Author Organization [facility] Address [address] [place] [address] Care Team Providers Care Rn Trauma Name Role Phone Stephanie Gillespie Primary Care Provider [phone] Allergies No known active allergies Medications atorvastatin [...] on file Medical Devices Implanted Type Area Wall Attendant Device Identifier Shelf Expiration Date Model / Serial / Lot Patch Carotid Peripatch [id number] Xenosure - [id number] Implanted:Qty: 1 on 06/19/2020 by Bo Brooks MD at [facility] Implant Right: Groin LEMAITRE VASCULAR 02/20/2026 [id number] / / [id number] Description:Soaked in 500 ml of NACL for 2 mins prior to implanting. NACL lot # [id number]. Exp date April 2023 Stent Vascular Balloon Expandable [id number] 8fr Viabahn - [id number] - [id number] Implanted:Qty: 1 on 06/19/2020 by Bo Brooks MD at [facility] Stent Right: Sera GARVIN 09/21/2022 [id number] / [id number] / Description:iliac Insurance [facility] Advance Directives * Full Code (Latest Code Status on File) Date Activated Date Inactivated Comments 06/19/2020 10:39 AM 06/20/2020 5:25 PM Care Teams Rn Trauma Relationship Specialty Start Date End Date Stephanie Gillespie [address] [address] PCP - General Internal Medicine 04/17/20
[2024-04-28 10:23] LABS: Platelet Count 321 X10*3/uL (160-400)
[2024-04-28 10:24] LABS: SLIDE REVIEW MANUAL DIFF
[2024-04-28 10:37] LABS: Band Neutrophils Percent 9 % (3-5); Eosinophils Absolute Manual 1.5 X10*3/uL (0.0-0.4); Eosinophils Percent Manual 5 % (0-4); Lymphocytes Absolute Manual 0.3 X10*3/uL (1.2-4.9); Lymphocytes Percent Manual 1 % (20-40); Microcytosis 3+ (>30) /OIF; Monocytes Absolute Manual 0.3 X10*3/uL (0.1-1.2); Monocytes Percent Manual 1 % (2-11); Neutrophils Absolute Manual 28.3 X10*3/uL (2.0-8.3); Neutrophils Percent Manual 84 % (45-73); RBC Morphology NOTED
[2024-04-28] MEDS: Piperacillin Sodium/Tazobactam 4.5 GM in 0.9 % Sodium Chloride 100 ML IV (10:38)
[2024-04-28 10:44] LABS: Ovalocytes 2+ (15-30) /OIF; Schistocytes 2+ (3-5) /OIF
[2024-04-28 10:46] LABS: Burr Cells 1+ (0-2) /OIF; Hypochromasia 3+ (>30) /OIF; Polychromasia 1+ (0-2) /OIF; Spherocytes 3+ (>5) /OIF
[2024-04-28 10:47] LABS: Large Platelet PRESENT; Platelet Estimate NORMAL (NORMAL); Platelet Morphology Comment NOTED
--- NOTE | 2024-04-28 11:34 | PC.NURSE ---
Pt's R AC IV started by Dr Souza infiltrated with Zosyn; IV removed immediately and hot pack applied; R AC area had eccyhmosis prior to arrival
--- NOTE | 2024-04-28 11:39 | PM.IMHP ---
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 Pt discharged from the hospital yesterday after being treated for acute encephalopathy, right lower lobe pneumonia, and COPD exacerbation with broad-spectrum antibiotics, steroids, and bronchodilators. Pt was discharged to [facility] on Augmentin, doxycycline, and prednisone 20mg po x5 days. This morning at [facility] pt was found with his oxygen off, satting at 68%, and in respiratory distress. O2 sat mildly improved to 72% on 3 L NC by EMS, who then placed pt on 10 L non-rebreather with improvement to 96%. Pt is slightly confused during interview and examination, initially stating that he was supposed to be sent home today. After pt is told he was discharged yesterday and is now back at the hospital, he seems to remember being at [facility] though is unaware of what brought him to the ED today. Complains of lower back pain as well as left lower leg pain, both which appear chronic. Denies shortness or breath, but states has had occasionally productive cough. Denies chest pain/pressure, or palpitations. In the ED pt was tachypneic up to 26. Pt is satting in the 60s on RA at [facility], placed on non-rebreather by EMS, and initially satting in the 70s on 3L NC. Labs were significant for chronically elevated WBCs of 30.4. Stable microcytic anemia of 10.4/38.1 and MCV 60.3. Initial troponin 89.9 (has been elevated in the past). BNP 771 (increased from 223 on 04/24/2024). No significant electrolyte abnormalities. VBG with pH 7.45, pCO2 70, and bicarb 49. CXR showed new pulmonary edema and bilateral moderate to large pleural effusions. EKG demonstrated sinus bradycardia of 53 with first-degree AV block and no evidence of significant ST elevations or depressions. Pt was treated with DuoNebs, Solu-Medrol, and Zosyn. Pt will be admitted to the hospital for treatment and further evaluation of acute on chronic hypoxic respiratory failure in the setting of bilateral pleural effusions with underlying pneumonia. [facility] Medical History COPD (chronic obstructive pulmonary disease) Leukocytosis Polycythemia Fracture High cholesterol HTN (hypertension) Heart attack Family History Daughter Aortic aneurysm Surgical History S/P angiogram of extremity Hx of rotator cuff surgery H/O arthroscopy of shoulder Social History Household Members: Spouse and Family Housing: House Do you presently have visiting nurse or other home services: No Patient Tobacco Use Status: Current everyday Tobacco user Tobacco use type: Cigarette Cigarette Packs Per Day: 1 Cigarettes Per Day: 20.0 Smoked in Last 30 Days: No Second Hand Smoke Exposure: No Use of substances other than those prescribed or required for medical reasons: No Advance Directives: No Advance Directives Information Provided: Yes Do you have a plan to hurt others: No Plan service: No Meds Allergies Allergy/AdvReac Type Severity Reaction Status Date / Time No Known Allergies Allergy Verified 04/28/24 08:50 [No Known Allergies*] Home Medications ?Medication ?Instructions ?Recorded ?Confirmed ?Last Taken ?Type atorvastatin 20 mg tablet 20 mg PO DAILY@199902/22/20 04/28/24 02/13/24 09:00 History albuterol sulfate 2.5 mg/3 mL 2.5 mg inhalation TID PRN 02/13/24 04/28/24 02/13/24 09:00 History (0.083 %) solution for nebulization Shortness Of Breath Or Wheezing fluticasone fur. 200 mcg-umeclid 1 ea inhalation DAILY@79902/13/24 04/28/24 02/13/24 09:00 History 62.5 mcg-vilant 25 mcg inhalat.powder (Trelegy Ellipta) metoprolol succinate 50 mg 50 mg PO DAILY@79902/13/24 04/28/24 02/13/24 09:00 History tablet,extended release 24 hr mkjhxuqtwoqv-jusrjxyq-heliwb tablet 1 tab PO DAILY@0800 02/13/24 04/28/24 02/13/24 09:00 History aspirin 81 mg chewable tablet 81 mg PO DAILY@0800 03/30/24 04/28/24 Unknown History albuterol sulfate 90 mcg/actuation 1 puff inhalation QID PRN asthma 04/24/24 04/28/24 Unknown History aerosol inhaler cyanocobalamin (vitamin B-12) 1,000 mcg PO DAILY@0800 04/24/24 04/28/24 Unknown History 1,000 mcg tablet acetaminophen 325 mg tablet 650 mg PO Q6H PRN pain or fever 04/28/24 04/28/24 Unknown History amiodarone 200 mg tablet 200 mg PO DAILY@0800 04/28/24 04/28/24 Unknown History bisacodyl 10 mg rectal suppository 10 mg PA DAILY PRN Constipation 04/28/24 04/28/24 Unknown History furosemide 20 mg tablet 20 mg PO DAILY@0800 04/28/24 04/28/24 Unknown History magnesium hydroxide 400 mg/5 mL 30 ml PO DAILY PRN Constipation 04/28/24 04/28/24 Unknown History oral suspension (Milk of Magnesia) prednisone 20 mg tablet 20 mg PO DAILY@0800 04/28/24 04/28/24 Unknown History sodium phosphates 19 gram-7 118 ml PA DAILY PRN Constipation 04/28/24 04/28/24 Unknown History gram/118 mL enema (Fleet Enema) Physical Exam Vital Signs and Narrative: Vital Signs: Last Vital Signs Temp 98.6 F 04/28/24 08:46 Pulse 53 04/28/24 09:06 Resp 16 04/28/24 09:06 BP 108/77 04/28/24 08:46 Pulse Ox 94 04/28/24 11:38 O2 Del Method Nasal Cannula 04/28/24 11:38 O2 Flow Rate 4 04/28/24 11:38 Oxygen Flow Rate 6 04/28/24 08:46 BMI result Body Mass Index 26.0 Constitutional: Alert, in no acute distress. Difficult to understand. Mental Status: Oriented to person and place, but not to time or situation. Eyes: Pupils are equal, round, and reactive to light. Ear, Nose, and Throat: Oropharynx clear, mucous membranes dry. Ears and nose without deformities. Trachea midline. Respiratory: Mild wheezing bilaterally. Cardiovascular: S1, S2 regular, bradycardic. No murmurs, rubs, or gallops. Gastrointestinal: Abdomen soft, non-tender, non-distended. Normal bowel sounds. Neurologic: Cranial nerves II-XII are grossly intact bilaterally. No focal neurological deficits. Moves all extremities spontaneously. Skin: Warm, dry. Extremities: Left lower extremity with swelling and tenderness. No erythema. Capillary refill <2 seconds bilaterally Psychiatric: Pleasantly confused. Results Labs 04/28/24 09:12 04/28/24 09:12 Labs: Laboratory Results - last 24 hr 04/28/24 04/28/24 09:12 09:18 MCV 60.3 L MCH 16.5 L MCHC 27.3 L RDW 28.8 H Plt Count 321 D MPV Not Reportable Immature Gran % (Auto) Cancelled Neut % (Auto) Cancelled Lymph % (Auto) Cancelled Bleckley % (Auto) Cancelled Eos % (Auto) Cancelled Baso % (Auto) Cancelled Lymph # (Auto) Cancelled Bleckley # (Auto) Cancelled Eos # (Auto) Cancelled Baso # (Auto) Cancelled Abs Immat Gran (auto) Cancelled Absolute Neuts (auto) Cancelled Absolute Nucleated RBC 0.100 H Nucleated RBC % (auto) 0.3 H Neutrophils % (Manual) 84 H Band Neutrophils % 9 H Lymphocytes % (Manual) 1 L Monocytes % (Manual) 1 L Eosinophils % (Manual) 5 H Abs Neuts (Manual) 28.3 H Lymphocytes # (Manual) 0.3 L Monocytes # (Manual) 0.3 Eosinophils # (Manual) 1.5 H Platelet Estimate NORMAL Large Platelets PRESENT Plt Morphology Comment NOTED RBC Morphology NOTED Polychromasia 1+ (0-2) Hypochromasia 3+ (>30) Microcytosis 3+ (>30) Spherocytes 3+ (>5) Ovalocytes 2+ (15-30) Jason Cells 1+ (0-2) Schistocytes 2+ (3-5) Smear Tech's Comments MANUAL DIFF PT 21.6 H D INR 1.9 H APTT 38.3 H D VBG pH 7.45 H VBG pCO2 70 VBG pO2 22 VBG HCO3 49 H VBG O2 Saturation < 30.0 VBG Base Excess 22.1 Anion Gap 11 L Estim Creat Clear Calc 37.2 Estimated GFR 53 Random Glucose 91 Calcium 8.9 Total Bilirubin 0.4 AST 29 ALT 31 Alkaline Phosphatase 83 Total Protein 7.5 Albumin 4.1 Imaging Radiologist's Impressions: Impressions Chest X-Ray 04/28/24 09:19 IMPRESSION: Pulmonary edema and bilateral moderate to large pleural effusions. 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 Pt will be admitted to the hospital for treatment and further evaluation of acute on chronic hypoxic respiratory failure in the setting of bilateral pleural effusions with COPD exacerbation and underlying pneumonia. Acute on chronic respiratory failure in the setting of bilateral pleural effusions Pt noted to be in respiratory distress at SNF, desatting into 60s on RA CXR showing pulmonary edema and bilateral moderate to large pleural effusions, new from prior 4 days ago on 04/24/2024 BNP 771, elevated from 04/18 on 04/24/2024 Pt without CHF diagnosis, echo on 02/13/2024 with preserved EF 60-65% BP soft, will hold on IV diuretics at this time Echocardiogram Cardiology consult Monitor on telemetry Acute on chronic respiratory failure in the setting of COPD exacerbation not underlying pneumonia Pt discharged yesterday for treatment of the same No sepsis: Tachypnea but no fever, tachycardia, or leukocytosis above baseline Will treat with bronchodilators, Solu-Medrol, and Zosyn, started 04/28/2024 Titrate supplemental O2 >90, pt on 3L at baseline Monitor respiratory status Left lower extremity pain and swelling Appears chronic Pt with negative venous duplex US on 03/29/2024 and 04/24/2024 for same indication Pt on Eliquis No indication to repeat US of left LE at this time Paroxysmal AFib Pt with recent sustained SVT s/p cardioversion Continue Eliquis, amiodarone Hold metoprolol due to soft BP and HR in the 50s Chronic leukocytosis Pt with hx of JAK2 positive myeloproliferative disorder CAD/HLD Continue statin Full Code Attending:?Dr. Downey DVT Prophylaxis: On Eliquis Pt will require a hospitalization of at least two nights for treatment of acute on chronic hypoxic respiratory failure in the setting of bilateral pleural effusions concerning for possible new onset CHF, as well as COPD exacerbation with underlying pneumonia.? Pt will require hospital level of care for administration of IV antibiotics, breathing treatments IV steroids, as well as additional workup and specialist consultation with Cardiology for possible new onset CHF. Quality Stroke Does the patient have a stroke diagnosis?: No VTE Prior VTE?: No VTE Risk Level:: Medical - moderate - high VTE Device Contraindication: Treatment Not Indicated VTE Drug Contraindication: N/A - Med Ordered
[2024-04-28 11:51] LABS: B Type Natriuretic Peptide 771 pg/mL (<100)
--- NOTE | 2024-04-28 11:51 | PHA.MEDREC ---
Addendum entered by Prasad Hull RPh 04/28/24 12:14: MED REC CHECKED BY [facility] Original Note: Pharmacy Consult ? Medication Reconciliation Pharmacy has completed the medication reconciliation. Used list from [facility].
[2024-04-28 14:41] LABS: Troponin-I High Sensitivity 61.4 ng/L (<3.5-35.0)
--- NOTE | 2024-04-28 15:56 | PC.NURSE ---
Pt resting quietly in room; LS dim throughout; pt afebrile; tolerating PO intake; pt had bedside echo/results pending
--- NOTE | 2024-04-28 17:00 | CA_ITS ---
Transthoracic Echocardiogram Patient (Last, First, Middle): Wyatt [place], Gender: Male Date of : 1935 Age: 88 Procedure Date: 04/28/2024 Procedure Type: Transthoracic Echocardiogram Location: ER Height: 170.18 cm Weight: 75.3 kg BSA: 1.87 m2 Heart Rate: 58 bpm BP: 108 / 77 mmHg Carriage Dogger: JAYCE Willams MD: Nakita WHITE Printing Roller Polisher: Pedrito Johnson MD Symptoms: Elevated BNP, new pleural effusions, ?CHF Study Quality: Technically Difficult ECG Rhythm: Sinus Bradycardia Conclusions: - 1. Normal LV ejection fraction of 60 65% with impaired relaxation filling pattern 2. Mild aortic stenosis 3. Upper limits of normal ascending aortic size 4. No gross pericardial effusion Findings Left Ventricle Normal left ventricular size, thickness, and systolic function. The visually estimated ejection fraction is between 60-65%. Spectral Doppler is indicative of an impaired relaxation filling pattern. Right Ventricle Normal right ventricular cavity size and systolic function. Atria The left atrium is likely dilated. There is no evidence of interatrial shunt. The right atrium is normal in size. Aortic Valve The aortic valve was not well visualized. There is mild calcification of the aortic valve. There is mild aortic valve stenosis. The peak aortic velocity is 1.98 m/s. The mean gradient is 8 mmHg. The aortic valve area is 1.96 cm2. There is no aortic valve regurgitation. Mitral Valve There is mild anterior and posterior mitral leaflet thickening. There is mild mitral annular calcification. There is trace mitral valve regurgitation. There is no mitral valve stenosis. Pulmonic Valve The pulmonic valve was not well visualized. Tricuspid Valve Likely normal tricuspid valve structure and function. There is mild tricuspid valve regurgitation. Normal right atrial pressure. There is no evidence of pulmonary hypertension. Great Vessels The aorta was not well visualized. The pulmonary artery was not well visualized. Venous The inferior vena cava is normal in size and collapses greater than 50% with inspiration. Pericardium/Pleural There is no evidence of pericardial effusion. There is a bilateral pleural effusion. Prior Study Comparison mild aortic stenosis is noted Measurements 2D Linear Measurements IVSd: 1.15 0.6-0.9/0.6-1.0 cm LVIDd: 4.48 3.9-5.3/4.2-5.9 cm LVIDd Index: 2.40 2.4-3.2/2.2-3.1 cm/m2 LVIDs: 2.89 2.0-3.6 cm LVPWd: 1.15 0.7-1.1 cm LA Diam: 3.60 2.7-3.8/3.0-4.0 cm LAIDs Index: 1.93 1.5-2.3 cm/m2 LV Mass: 230.62 67-162/88-224 g LV Mass Index: 123.33 43-95/49-115 g/m2 LVOT Diam: 2.40 3.0+(-)1.3 cm 2D Systolic Function EF 4C: 68.50 >55% EF 2C: 58.80 >55% EF BiP: 63.30 >55% Mitral Valve MV Pk E: 1.00 MV PK A: 1.18 MV Decel Time: 262.00 E/A: 0.80 E'Lateral: 6.74 E'Medial: 5.66 E/E' Med: 17.70 E/E' Lat: 14.80 PHT: 77.00 MVA PHT: 2.86 Decel Estill: 3.83 Aortic Valve AoV Pk Aryan: 1.98 AoV Mn Aryan: 1.31 AoV VTI: 0.50 AoV Pk Grad: 16.00 Aov Mn Grad: 8.00 KANDACE Cont.VTI: 1.96 LVOT LVOT Pk Aryan: 0.85 LVOT Mn Aryan: 0.58 LVOT VTI: 0.22 LVOT Pk Grad: 3.00 LVOT Mn Grad: 2.00 LVOT Diam: 2.40 LVOT Area: 4.52 Diastolic Function MV Pk E: 1.00 MV Pk A: 1.18 E/A: 0.80 E'Medial: 5.66 E/E' Med: 17.70 E' Laterial: 6.74 E/E' Lat: 14.80 Right Ventricle TAPSE (mm): 24.80 Tricuspid Valve TR Pk Aryan: 2.87 TR Pk Grad: 33.00 RA Press: 3.00 RVSP: 36.00 Great Vessels Aorta Sinus of Valsalva: 3.30 2.0-3.5 cm Ao Asc: 3.40 2.1-3.4 cm Pulmonary Valve PV Pk Aryan: 1.34 Peak PV Grad: 7.00 Updated in Other Vendor System with Status of Final Pedrito Johnson MD electronically signed on 04/28/2024 5:02:47 PM with status of Final
[2024-04-28] MEDS: 0.9 % Sodium Chloride Flush 3 ML SYRINGE IVFLUSH (17:01)
--- NOTE | 2024-04-28 17:09 | P.CONCA_ITS ---
History of Present Illness History of Present Illness Date of Service: 04/28/24 Requesting physician: Joycelyn Downey Consult reason: other (Hypoxemic respiratory failure with elevated BNP) Chief complaint: pleural effusions, hypoxia Narrative: I was consulted to see Wyatt in cardiology consultation today for elevated BNP with readmission with hypoxemic respiratory failure. Patient is 88-year-old male who was discharged yesterday from the hospital with hypoxemic respiratory failure related to COPD exacerbation right lower lobe pneumonia. Patient was treated and subsequently apparently was doing well and was discharged yesterday. [facility] at the [facility] was noted to be markedly hypoxemic and EMS was called to bring the patient patient was altered mental status. Currently patient was still confused and does not provide much history when I asked whether he was short of breath he said he is not really short of breath although his oxygen saturation was 68% and he was altered mental status which had to be treated with BiPAP. He is currently on oxygen cannula and breathing comfortably. Of note he was noted to have chest x-ray findings consistent with bilateral moderately large pleural effusion and question pulmonary edema. He was clinical suspicion for heart failure although no diuretics has been given due to lowish blood pressure. Patient mentation why as has improved but still is a poor historian. Patient has prior history of vascular disease including left subclavian artery stenting, carotid disease, CAD with prior NSTEMI. Patient also severe COPD with chronic respiratory failure related to asthma. Review of Systems 2 Review of Systems: Yes Unobtainable due to mental status PMFSH Past Medical History Medical History COPD (chronic obstructive pulmonary disease) Leukocytosis Polycythemia Fracture High cholesterol HTN (hypertension) Heart attack Family History Family History Daughter Aortic aneurysm Surgical History Surgical History S/P angiogram of extremity Hx of rotator cuff surgery H/O arthroscopy of shoulder Social History Social History Household Members: Spouse and Family Housing: House Do you presently have visiting nurse or other home services: No Patient Tobacco Use Status: Current everyday Tobacco user Tobacco use type: Cigarette Cigarette Packs Per Day: 1 Cigarettes Per Day: 20.0 Smoked in Last 30 Days: No Second Hand Smoke Exposure: No Use of substances other than those prescribed or required for medical reasons: No Advance Directives: No Advance Directives Information Provided: Yes Do you have a plan to hurt others: No Plan service: No Meds Allergies Allergy/AdvReac Type Severity Reaction Status Date / Time No Known Allergies Allergy Verified 04/28/24 08:50 [No Known Allergies*] Active Medications: Current Medications Acetaminophen (Acetaminophen 325 Mg Tablet) 650 mg PO Q6H PRN PRN Reason: Pain, Mild 1-3,fever,headache Albuterol Sulfate (Albuterol Sulfate (0.083%) 2.5 Mg/3 Ml Vial.Neb) 2.5 mg INHALE TID PRN PRN Reason: Shortness Of Breath Or Wheezing Albuterol Sulfate (Albuterol Sulfate 90 Mcg 8 Gm Inhaler) 1 puff INHALE QID PRN PRN Reason: asthma Albuterol/Ipratropium (Albuterol/Iprat 2.5/0.5mg 3 Ml Ampul.Neb) 3 ml INHALE RQ4H WHILE AWAKE [facility] Last Admin: 04/28/24 15:19 Dose: Not Given Amiodarone HCl (Amiodarone Hcl 200 Mg Tablet) 200 mg PO DAILY@0800 [facility] Apixaban (Apixaban 5 Mg Tablet) 5 mg PO BID [facility] Aspirin (Aspirin 81 Mg Tab.Chew) 81 mg PO DAILY@0800 [facility] Atorvastatin Calcium (Atorvastatin Calcium 20 Mg Tablet) 20 mg PO DAILY@2000 [facility] Bisacodyl (Bisacodyl 10 Mg Supp.Rect) 10 mg KS DAILY PRN PRN Reason: Constipation Calcium Carbonate (Calcium Carbonate 750 Mg Tab.Chew) 750 mg PO Q4H PRN PRN Reason: Heartburn Cyanocobalamin (Cyanocobalamin (Vitamin B-12) 1,000 Mcg Tablet) 1,000 mcg PO DAILY@0800 [facility] Fluticasone/Umeclidinium/Vilanterol (Fluticasone/Umeclidinium/Vilanterol 200/62.5/25 Blst.W.Dev) 1 puff INHALE RDAILY@0800 [facility] Piperacillin Sod/Tazobactam (Sod 3.375 gm/ Sodium Chloride) 50 mls @ 100 mls/hr IV Q6H [facility] Magnesium Hydroxide (Milk Of Magnesia 30 Ml Oral.Susp) 30 ml PO DAILY PRN PRN Reason: Constipation Melatonin (Melatonin 3 Mg Tablet) 6 mg PO BEDTIME PRN PRN Reason: Insomnia Methylprednisolone Sodium Succinate (Methylprednisolone Sod Succ 40 Mg/Ml Vial) 40 mg IVPUSH Q12H [facility] Multivitamins/Vitamin C (Multivitamin Tablet) 1 tab PO DAILY@0800 [facility] Ondansetron HCl (Ondansetron Hcl 4 Mg/2 Ml Vial) 4 mg IVPUSH Q8H PRN PRN Reason: Nausea and Vomiting Prednisone (Prednisone 20 Mg Tablet) 20 mg PO DAILY@0800 [facility] Sodium Biphosphate/Sodium Phosphate (Sodium Phosphate,[place]-Dibasic 133 Ml Enema) 118 ml KS DAILY PRN PRN Reason: Constipation Sodium Chloride (0.9 % Sodium Chloride Flush 3 Ml Syringe) 3 ml IVFLUSH QSHIFT [facility] Last Admin: 04/28/24 17:01 Dose: 3 ml Home Medications ?Medication ?Instructions ?Recorded ?Confirmed ?Last Taken ?Type atorvastatin 20 mg tablet 20 mg PO DAILY@199902/22/20 04/28/24 02/13/24 09:00 History albuterol sulfate 2.5 mg/3 mL 2.5 mg inhalation TID PRN 02/13/24 04/28/24 02/13/24 09:00 History (0.083 %) solution for nebulization Shortness Of Breath Or Wheezing fluticasone fur. 200 mcg-umeclid 1 ea inhalation DAILY@79902/13/24 04/28/24 02/13/24 09:00 History 62.5 mcg-vilant 25 mcg inhalat.powder (Trelegy Ellipta) metoprolol succinate 50 mg 50 mg PO DAILY@79902/13/24 04/28/24 02/13/24 09:00 History tablet,extended release 24 hr fmrexvnounxf-xcfdwtof-wutteo tablet 1 tab PO DAILY@79902/13/24 04/28/24 02/13/24 09:00 History aspirin 81 mg chewable tablet 81 mg PO DAILY@0800 03/30/24 04/28/24 Unknown History albuterol sulfate 90 mcg/actuation 1 puff inhalation QID PRN asthma 04/24/24 04/28/24 Unknown History aerosol inhaler cyanocobalamin (vitamin B-12) 1,000 mcg PO DAILY@0800 04/24/24 04/28/24 Unknown History 1,000 mcg tablet acetaminophen 325 mg tablet 650 mg PO Q6H PRN pain or fever 04/28/24 04/28/24 Unknown History amiodarone 200 mg tablet 200 mg PO DAILY@0800 04/28/24 04/28/24 Unknown History bisacodyl 10 mg rectal suppository 10 mg KS DAILY PRN Constipation 04/28/24 04/28/24 Unknown History furosemide 20 mg tablet 20 mg PO DAILY@0804/28/24 04/28/24 Unknown History magnesium hydroxide 400 mg/5 mL 30 ml PO DAILY PRN Constipation 04/28/24 04/28/24 Unknown History oral suspension (Milk of Magnesia) prednisone 20 mg tablet 20 mg PO DAILY@0804/28/24 04/28/24 Unknown History sodium phosphates 19 gram-7 118 ml KS DAILY PRN Constipation 04/28/24 04/28/24 Unknown History gram/118 mL enema (Fleet Enema) Physical Exam 2 Vital Signs: Vital Signs: Last Vital Signs Temp 97 F 04/28/24 16:48 Pulse 91 04/28/24 16:48 Resp 19 04/28/24 16:48 BP 106/56 L 04/28/24 16:48 Pulse Ox 92 04/28/24 16:48 O2 Del Method Nasal Cannula 04/28/24 16:48 O2 Flow Rate 3 04/28/24 16:48 Oxygen Flow Rate 6 04/28/24 08:46 BMI result Body Mass Index 26.0 Const: General: cooperative, comfortable, no acute distress, alert and awake Nutritional Appearance: average body habitus HEENT: Head: Yes normocephalic and Yes atraumatic Neck: Neck: Yes trachea midline, Yes supple and Yes no JVD Resp: Effort & Inspection: decreased respiratory effort Auscultation: w heezes, breath sounds absent bilateral (Bases) and diminished lung sounds Cardio: Jugular venous distension: no JVD Rate: regular rate Rhythm: r egular rhythm Heart sounds: S1 normal heart sound present, S2 normal heart sound present, no click, no gallops, no murmurs and no rubs GI: Auscultation: normal bowel sounds Skin: General skin exam: no rashes or lesions noted and ecchymosis Neuro: General: no focal motor deficits Extrem: General: Yes no clubbing, cyanosis or edema Objective Labs and Meds 04/28/24 09:12 04/28/24 09:12 Lab results: Laboratory Results - last 24 hr 04/28/24 04/28/24 04/28/24 09:12 09:18 10:36 WBC 30.4 H* RBC 6.32 H Hgb 10.4 L Hct 38.1 L MCV 60.3 L MCH 16.5 L MCHC 27.3 L RDW 28.8 H Plt Count 321 D MPV Not Reportable Immature Gran % (Auto) Cancelled Neut % (Auto) Cancelled Lymph % (Auto) Cancelled [place] % (Auto) Cancelled Eos % (Auto) Cancelled Baso % (Auto) Cancelled Lymph # (Auto) Cancelled [place] # (Auto) Cancelled Eos # (Auto) Cancelled Baso # (Auto) Cancelled Abs Immat Gran (auto) Cancelled Absolute Neuts (auto) Cancelled Absolute Nucleated RBC 0.100 H Nucleated RBC % (auto) 0.3 H Neutrophils % (Manual) 84 H Band Neutrophils % 9 H Lymphocytes % (Manual) 1 L Monocytes % (Manual) 1 L Eosinophils % (Manual) 5 H Abs Neuts (Manual) 28.3 H Lymphocytes # (Manual) 0.3 L Monocytes # (Manual) 0.3 Eosinophils # (Manual) 1.5 H Platelet Estimate NORMAL Large Platelets PRESENT Plt Morphology Comment NOTED RBC Morphology NOTED Polychromasia 1+ (0-2) Hypochromasia 3+ (>30) Microcytosis 3+ (>30) Spherocytes 3+ (>5) Ovalocytes 2+ (15-30) Langston Cells 1+ (0-2) Schistocytes 2+ (3-5) Smear Tech's Comments MANUAL DIFF PT 21.6 H D INR 1.9 H APTT 38.3 H D VBG pH 7.45 H VBG pCO2 70 VBG pO2 22 VBG HCO3 49 H VBG O2 Saturation < 30.0 VBG Base Excess 22.1 Sodium 143 Potassium 3.5 Chloride 104 Carbon Dioxide 32 H Anion Gap 11 L BUN 25 H Creatinine 1.28 Estim Creat Clear Calc 37.2 Estimated GFR 53 Random Glucose 91 Calcium 8.9 Total Bilirubin 0.4 AST 29 ALT 31 Alkaline Phosphatase 83 Troponin I High Sens 89.9 H D B-Natriuretic Peptide 771 H Total Protein 7.5 Albumin 4.1 04/28/24 14:06 WBC RBC Hgb Hct MCV MCH MCHC RDW Plt Count MPV Immature Gran % (Auto) Neut % (Auto) Lymph % (Auto) [place] % (Auto) Eos % (Auto) Baso % (Auto) Lymph # (Auto) [place] # (Auto) Eos # (Auto) Baso # (Auto) Abs Immat Gran (auto) Absolute Neuts (auto) Absolute Nucleated RBC Nucleated RBC % (auto) Neutrophils % (Manual) Band Neutrophils % Lymphocytes % (Manual) Monocytes % (Manual) Eosinophils % (Manual) Abs Neuts (Manual) Lymphocytes # (Manual) Monocytes # (Manual) Eosinophils # (Manual) Platelet Estimate Large Platelets Plt Morphology Comment RBC Morphology Polychromasia Hypochromasia Microcytosis Spherocytes Ovalocytes Langston Cells Schistocytes Smear Tech's Comments PT INR APTT VBG pH VBG pCO2 VBG pO2 VBG HCO3 VBG O2 Saturation VBG Base Excess Sodium Potassium Chloride Carbon Dioxide Anion Gap BUN Creatinine Estim Creat Clear Calc Estimated GFR Random Glucose Calcium Total Bilirubin AST ALT Alkaline Phosphatase Troponin I High Sens 61.4 H B-Natriuretic Peptide Total Protein Albumin Conclusions: - 1. Normal LV ejection fraction of 60 65% with impaired relaxation filling pattern 2. Mild aortic stenosis 3. Upper limits of normal ascending aortic size 4. No gross pericardial effusion EKG shows sinus bradycardia with left anterior fascicular block and incomplete right bundle-branch block. Imaging Radiologist's impression: Impressions Chest X-Ray 04/28/24 09:19 IMPRESSION: Pulmonary edema and bilateral moderate to large pleural effusions. Electronically signed by: Kj Rivera MD 04/28/2024 09:32 AM [facility] Assessment and Plan (1) Acute on chronic hypoxic respiratory failure: Status: Acute Patient present with severe hypoxemia with acute hypoxemic respiratory failure in the setting of known prior chronic respiratory failure and severe emphysema with chest x-ray finding consistent with moderate to large bilateral effusion which could be most likely contributing to his hypoxemic respiratory failure. There is no clinical evidence of congestive heart failure with normal right- sided pressures as noted by IVC size and collapsibility. Also patient does not appear to have pulmonary edema and chest x-ray findings might be due to crowding of the lung space related to pleural effusion. Given his severe COPD additional pulmonary collapse related to pleural effusion could contribute to his hypoxemic respiratory failure and severe hypoxemia could cause permanent vaso constriction RV strain causing elevated BNP. At this point time given his low blood pressure would avoid using any diuretic regimen. I would consider doing noncontrast chest CT to evaluate for bilateral pleural effusion if they are significant would consider performing therapeutic thoracocentesis. Currently not having any signs of active myocardial ischemia. Continue supportive care. Findings were discussed with Dr. Downey Greater than 40 minutes was spent in managing his care. Thank you for allowing me to partake in his care Procedures Date of Service Date of Service: 04/28/24
[2024-04-28] MEDS: Piperacillin Sodium/Tazobactam 3.375 GM in 0.9 % Sodium Chloride 50 ML IV ×2 (18:35→23:14)
[2024-04-28] MEDS: Albuterol/Iprat 2.5/0.5MG 3 ML AMPUL.NEB INHALE (20:16)
[2024-04-28] MEDS: Atorvastatin Calcium 20 MG TABLET PO (22:08)
[2024-04-28] MEDS: Apixaban 5 MG TABLET PO (22:08)
[2024-04-28] MEDS: methylPREDNISolone Sod Succ 40 MG/ML VIAL IVPUSH (22:09)
[2024-04-29] VITALS (13 sets, daily range): BP systolic 76–153; BP diastolic 57–70; PULSE 56–68; RESP 16–19; TEMP 36.2–36.9; O2SAT 84–100
[2024-04-29] MEDS: 0.9 % Sodium Chloride Flush 3 ML SYRINGE IVFLUSH ×4 (04:31→22:21)
[2024-04-29] MEDS: Piperacillin Sodium/Tazobactam 3.375 GM in 0.9 % Sodium Chloride 50 ML IV ×4 (04:44→23:34)
[2024-04-29 06:55] LABS: Anion Gap 11 (12-20); Blood Urea Nitrogen 22 mg/dL (9-16); Calcium 8.5 mg/dL (8.4-10.2); Carbon Dioxide 29 mmol/L (22-29); Chloride 108 mmol/L (96-108); Creatinine Clr Calc Pharmacy 44.6; Estimated Glomerular Filt Rate > 60; Glucose Random 132 mg/dL (60-115); Potassium 3.6 mmol/L (3.3-5.1); Sodium 144 mmol/L (135-145)
[2024-04-29 07:08] LABS: B Type Natriuretic Peptide 804 pg/mL (<100)
[2024-04-29 07:26] LABS: Hematocrit 35.2 % (42.0-52.0); Hemoglobin 9.8 g/dl (14.0-18.0); Mean Corpuscular HGB Conc 27.8 g/dl (31.0-36.0); Mean Corpuscular Hemoglobin 16.7 pg (27.0-33.0); Mean Corpuscular Volume 60.1 fL (80.0-98.0); NRBC Pct Auto 0.3 /100WBC (0.0-0.2); PLT CLUMP 1; Red Blood Count 5.86 X10*6/uL (4.60-5.80); Red Cell Distribution Width 28.5 % (11.0-16.0)
[2024-04-29 07:27] LABS: Platelet Count 286 X10*3/uL (160-400); White Blood Count 35.8 X10*3/uL (4.8-10.8)
[2024-04-29] MEDS: Albuterol/Iprat 2.5/0.5MG 3 ML AMPUL.NEB INHALE ×4 (08:04→19:51)
[2024-04-29] MEDS: Multivitamin TABLET 1 TAB PO (08:23)
[2024-04-29] MEDS: Aspirin 81 MG TAB.CHEW PO (08:23)
[2024-04-29] MEDS: methylPREDNISolone Sod Succ 40 MG/ML VIAL IVPUSH ×2 (08:23→22:20)
[2024-04-29] MEDS: Cyanocobalamin (Vitamin B-12) 1,000 MCG TABLET 1000 MCG PO (08:23)
[2024-04-29] MEDS: Amiodarone HCL 200 MG TABLET PO (08:23)
[2024-04-29] MEDS: Apixaban 5 MG TABLET PO ×2 (08:23→22:18)
[2024-04-29] MEDS: 0.9 % Sodium Chloride 250 ML IVCONT ×2 (12:25→13:45)
--- NOTE | 2024-04-29 13:42 | MHC.CM.PN ---
IMM 04/29/24 Patient BIBA from [facility] 04/28/24. He was discharged to [facility] 04/27/24. Patient returns with Pleural effusions and Hypoxia. Pt Lives @ home with spouse and sons. HCP on file. Cane+ Walker DP return to [facility] via BLS.
--- NOTE | 2024-04-29 15:41 | HO.PM.IMPN ---
Subjective Subjective Date of Service: 04/30/24 Interval History: Resting comfortably denies chest pain, no shortness a breath, complaining of feeling weak due to multiple vials of blood taken, no acute events overnight Review of Systems All other system reviewed Physical Exam Vital Signs: Vital Signs: Last Vital Signs Temp 97.9 F 04/29/24 14:30 Pulse 66 04/29/24 15:10 Resp 18 04/29/24 15:10 BP 116/57 L 04/29/24 14:30 Pulse Ox 96 04/29/24 14:30 O2 Del Method Nasal Cannula 04/29/24 14:30 O2 Flow Rate 4 04/29/24 14:30 Oxygen Flow Rate 6 04/28/24 08:46 BMI result Body Mass Index 26.0 Const: Other: General resting comfortably in no acute distress. Neck no JVD. CVS regular rate rhythm, Respiratory lungs diminished at bases, few rhonchi Gastrointestinal abdomen soft, non tender, bowel sounds audible Extremities no edema.L >R nontender Neuro non focal /thick speech Appropriate affect Objective Data Active Medications Acetaminophen (Acetaminophen 325 Mg Tablet) 650 mg PO Q6H PRN PRN Reason: Pain, Mild 1-3,fever,headache Albuterol Sulfate (Albuterol Sulfate (0.083%) 2.5 Mg/3 Ml Vial.Neb) 2.5 mg INHALE TID PRN PRN Reason: Shortness Of Breath Or Wheezing Albuterol Sulfate (Albuterol Sulfate 90 Mcg 8 Gm Inhaler) 1 puff INHALE QID PRN PRN Reason: asthma Albuterol/Ipratropium (Albuterol/Iprat 2.5/0.5mg 3 Ml Ampul.Neb) 3 ml INHALE RQ4H WHILE AWAKE [facility] Last Admin: 04/29/24 15:08 Dose: 3 ml Documented By: EL Amiodarone HCl (Amiodarone Hcl 200 Mg Tablet) 200 mg PO DAILY@0800 [facility] Last Admin: 04/29/24 08:23 Dose: 200 mg Documented By: ELAINE Apixaban (Apixaban 5 Mg Tablet) 5 mg PO BID [facility] Last Admin: 04/29/24 08:23 Dose: 5 mg Documented By: ELAINE Aspirin (Aspirin 81 Mg Tab.Chew) 81 mg PO DAILY@0800 [facility] Last Admin: 04/29/24 08:23 Dose: 81 mg Documented By: ELAINE Atorvastatin Calcium (Atorvastatin Calcium 20 Mg Tablet) 20 mg PO DAILY@1999 [facility] Last Admin: 04/28/24 22:08 Dose: 20 mg Documented By: DELON Bisacodyl (Bisacodyl 10 Mg Supp.Rect) 10 mg [place] DAILY PRN PRN Reason: Constipation Calcium Carbonate (Calcium Carbonate 750 Mg Tab.Chew) 750 mg PO Q4H PRN PRN Reason: Heartburn Cyanocobalamin (Cyanocobalamin (Vitamin B-12) 1,000 Mcg Tablet) 1,000 mcg PO DAILY@08 [facility] Last Admin: 04/29/24 08:23 Dose: 1,000 mcg Documented By: ELAINE Fluticasone/Umeclidinium/Vilanterol (Fluticasone/Umeclidinium/Vilanterol 200/62.5/25 Blst.W.Dev) 1 puff INHALE RDAILY@799 [facility] Last Admin: 04/29/24 11:19 Dose: Not Given Documented By: EL Non-Admin Reason: Med Not Available Piperacillin Sod/Tazobactam (Sod 3.375 gm/ Sodium Chloride) 50 mls @ 100 mls/hr IV Q6H [facility] Last Infusion: 04/29/24 13:02 Dose: Infused Documented By: LUPE Magnesium Hydroxide (Milk Of Magnesia 30 Ml Oral.Susp) 30 ml PO DAILY PRN PRN Reason: Constipation Melatonin (Melatonin 3 Mg Tablet) 6 mg PO BEDTIME PRN PRN Reason: Insomnia Methylprednisolone Sodium Succinate (Methylprednisolone Sod Succ 40 Mg/Ml Vial) 40 mg IVPUSH Q12H [facility] Last Admin: 04/29/24 08:23 Dose: 40 mg Documented By: ELAINE Multivitamins/Vitamin C (Multivitamin Tablet) 1 tab PO DAILY@08 [facility] Last Admin: 04/29/24 08:23 Dose: 1 tab Documented By: ELAINE Ondansetron HCl (Ondansetron Hcl 4 Mg/2 Ml Vial) 4 mg IVPUSH Q8H PRN PRN Reason: Nausea and Vomiting Sodium Biphosphate/Sodium Phosphate (Sodium Phosphate,[place]-Dibasic 133 Ml Enema) 118 ml [place] DAILY PRN PRN Reason: Constipation Sodium Chloride (0.9 % Sodium Chloride Flush 3 Ml Syringe) 3 ml IVFLUSH QSHIFT [facility] Last Admin: 04/29/24 08:24 Dose: 3 ml Documented By: ELAINE Labs 04/29/24 06:00 04/29/24 06:00 Labs: Laboratory Results - last 24 hr 04/29/24 06:00 MCV 60.1 L MCH 16.7 L MCHC 27.8 L RDW 28.5 H Plt Count 286 MPV Not Reportable Absolute Nucleated RBC 0.110 H Nucleated RBC % (auto) 0.3 H Anion Gap 11 L Estim Creat Clear Calc 44.6 Estimated GFR > 60 Random Glucose 132 H Calcium 8.5 B-Natriuretic Peptide 804 H Microbiology Microbiology Results: Microbiology 04/28/24 10:36 Blood Culture - Preliminary Blood - Venous No growth after 24 hours. 04/28/24 10:36 Blood Culture - Preliminary Blood - Venous No growth after 24 hours. 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 Pt will be admitted to the hospital for treatment and further evaluation of acute on chronic hypoxic respiratory failure in the setting of bilateral pleural effusions with COPD exacerbation and underlying pneumonia. Acute on chronic respiratory failure in the setting of bilateral pleural effusions CXR showing pulmonary edema and bilateral moderate to large pleural effusions, new from prior 4 days ago on 04/24/2024 BNP 771, elevated from 223 on 04/24/2024 no CHF diagnosis, Echocardiogram showed EF 60-65%, impaired relaxation filling patterns, no pericardial effusion, inferior vena cava is normal in size and collapses greater than 50% with inspiration Seen by cardiology patient does not seem to be in CHF, RV strain likely cause of elevated BNP CT chest showed bilateral moderate pleural effusion, consulted IR for thoracocentesis due to hypotension they canceled the procedure due to low blood pressure. Hypotension Not on any antihypertensives, no nausea, no vomiting, no fevers treated with IV fluids systolic BP improved to 100 follow clinical course. Acute on chronic respiratory failure in the setting of COPD exacerbation not underlying pneumonia No sepsis: Tachypnea but no fever, tachycardia, or leukocytosis above baseline Continue bronchodilators, Solu-Medrol, and Zosyn, started 04/28/2024 Titrate supplemental O2 >90, pt on 3L at baseline Monitor respiratory status Left lower extremity pain and swelling Appears chronic negative venous duplex US on 03/29/2024 and 04/24/2024 for same indication on Eliquis No indication to repeat US of left LE at this time Paroxysmal AFib Pt with recent sustained SVT s/p cardioversion Continue Eliquis, amiodarone Hold metoprolol due to soft BP and HR in the 50s, 500 mL normal saline given blood pressure improved Chronic leukocytosis hx of JAK2 positive myeloproliferative disorder CAD/HLD Continue statin Full Code DVT Prophylaxis: On Eliquis Pt will require continued inpatient hospitalization for treatment of acute on chronic hypoxic respiratory failure in the setting of bilateral pleural effusions concerning for COPD exacerbation with underlying pneumonia and thoracocentesis for moderate bilateral pleural effusion..? Quality Stroke Does the patient have a stroke diagnosis?: No VTE Prior VTE?: No VTE Risk Level:: Medical - moderate - high VTE Device Contraindication: Treatment Not Indicated VTE Drug Contraindication: N/A - Med Ordered
[2024-04-29] MEDS: Atorvastatin Calcium 20 MG TABLET PO (22:18)
[2024-04-29] MEDS: Acetaminophen 325 MG TABLET 650 MG PO (22:18)
[2024-04-30] VITALS (20 sets, daily range): BP systolic 69–108; BP diastolic 49–68; PULSE 57–72; RESP 16–26; TEMP 36.1–36.6; O2SAT 90–98
[2024-04-30] MEDS: Piperacillin Sodium/Tazobactam 3.375 GM in 0.9 % Sodium Chloride 50 ML IV ×3 (05:08→19:53)
[2024-04-30] MEDS: Albuterol/Iprat 2.5/0.5MG 3 ML AMPUL.NEB INHALE ×3 (07:48→17:22)
[2024-04-30] MEDS: Cyanocobalamin (Vitamin B-12) 1,000 MCG TABLET 1000 MCG PO (08:15)
[2024-04-30] MEDS: Aspirin 81 MG TAB.CHEW PO (08:15)
[2024-04-30] MEDS: methylPREDNISolone Sod Succ 40 MG/ML VIAL IVPUSH (08:15)
[2024-04-30] MEDS: Multivitamin TABLET 1 TAB PO (08:15)
[2024-04-30] MEDS: Amiodarone HCL 200 MG TABLET PO (08:15)
[2024-04-30] MEDS: Apixaban 5 MG TABLET PO ×2 (08:15→19:53)
[2024-04-30] MEDS: 0.9 % Sodium Chloride Flush 3 ML SYRINGE IVFLUSH ×3 (08:20→19:54)
[2024-04-30] MEDS: Fluticasone/Umeclidinium/Vilanterol 200/62.5/25 BLST.W.DEV 1 PUFF INHALE (11:09)
[2024-04-30] MEDS: Albumin Human 25 % 100 ML IV ×2 (13:02→18:12)
[2024-04-30] MEDS: Midodrine HCl 10 MG TABLET PO (13:03)
--- NOTE | 2024-04-30 13:11 | P.PNIM_ITS ---
Subjective Subjective Date of Service: 04/30/24 Interval History: Complaining of right upper extremity swelling and discomfort, missing his dentures and his clots, unable to eat due to lack of dentures, denies oral pain,, denies fever, no chills, no lightheadedness, no dizziness, no other acute events overnight. Review of Systems All other system reviewed and are negative Physical Exam 2 Vital Signs: Vital Signs: Last Vital Signs Temp 97.3 F 04/30/24 12:45 Pulse 67 04/30/24 12:45 Resp 17 04/30/24 12:45 BP 82/51 L 04/30/24 12:45 Pulse Ox 94 04/30/24 12:45 O2 Del Method Nasal Cannula 04/30/24 12:45 O2 Flow Rate 4 04/30/24 12:45 Oxygen Flow Rate 6 04/28/24 08:46 BMI result Body Mass Index 26.0 Const: Other: General resting comfortably in no acute distress. Oral cavity, white patches on tongue Neck no JVD. CVS regular rate rhythm, Respiratory lungs diminished at bases, few rhonchi Gastrointestinal abdomen soft, non tender, bowel sounds audible Extremities no edema.L >R nontender, mild tenderness left leg on palpation Right upper extremity significant swelling tenderness to palpation likely due to IV infiltration Neuro non focal /thick speech Appropriate affect Objective Data Active Medications Acetaminophen (Acetaminophen 325 Mg Tablet) 650 mg PO Q6H PRN PRN Reason: Pain, Mild 1-3,fever,headache Last Admin: 04/29/24 22:18 Dose: 650 mg Documented By: VONDA Albuterol Sulfate (Albuterol Sulfate (0.083%) 2.5 Mg/3 Ml Vial.Neb) 2.5 mg INHALE TID PRN PRN Reason: Shortness Of Breath Or Wheezing Albuterol Sulfate (Albuterol Sulfate 90 Mcg 8 Gm Inhaler) 1 puff INHALE QID PRN PRN Reason: asthma Albuterol/Ipratropium (Albuterol/Iprat 2.5/0.5mg 3 Ml Ampul.Neb) 3 ml INHALE RQ4H WHILE AWAKE [facility] Last Admin: 04/30/24 11:09 Dose: 3 ml Documented By: STEPHANY Amiodarone HCl (Amiodarone Hcl 200 Mg Tablet) 200 mg PO DAILY@0800 [facility] Last Admin: 04/30/24 08:15 Dose: 200 mg Documented By: WILDER Apixaban (Apixaban 5 Mg Tablet) 5 mg PO BID [facility] Last Admin: 04/30/24 08:15 Dose: 5 mg Documented By: WILDER Aspirin (Aspirin 81 Mg Tab.Chew) 81 mg PO DAILY@08 [facility] Last Admin: 04/30/24 08:15 Dose: 81 mg Documented By: WILDER Atorvastatin Calcium (Atorvastatin Calcium 20 Mg Tablet) 20 mg PO DAILY@1999 [facility] Last Admin: 04/29/24 22:18 Dose: 20 mg Documented By: VONDA Bisacodyl (Bisacodyl 10 Mg Supp.Rect) 10 mg [place] DAILY PRN PRN Reason: Constipation Calcium Carbonate (Calcium Carbonate 750 Mg Tab.Chew) 750 mg PO Q4H PRN PRN Reason: Heartburn Cyanocobalamin (Cyanocobalamin (Vitamin B-12) 1,000 Mcg Tablet) 1,000 mcg PO DAILY@08 [facility] Last Admin: 04/30/24 08:15 Dose: 1,000 mcg Documented By: WILDER Fluticasone/Umeclidinium/Vilanterol (Fluticasone/Umeclidinium/Vilanterol 200/62.5/25 Blst.W.Dev) 1 puff INHALE RDAILY@08 [facility] Last Admin: 04/30/24 11:09 Dose: 1 puff Documented By: STEPHANY Piperacillin Sod/Tazobactam (Sod 3.375 gm/ Sodium Chloride) 50 mls @ 100 mls/hr IV Q6H [facility] Last Infusion: 04/30/24 05:44 Dose: Infused Documented By: ASHANTI Albumin Human (Kedbumin 25 %) 100 mls @ 100 mls/hr IV Q6H [facility] Stop: 04/30/24 19:44 Last Admin: 04/30/24 13:02 Dose: 100 mls/hr Documented By: WILDER Magnesium Hydroxide (Milk Of Magnesia 30 Ml Oral.Susp) 30 ml PO DAILY PRN PRN Reason: Constipation Melatonin (Melatonin 3 Mg Tablet) 6 mg PO BEDTIME PRN PRN Reason: Insomnia Methylprednisolone Sodium Succinate (Methylprednisolone Sod Succ 40 Mg/Ml Vial) 40 mg IVPUSH Q12H [facility] Last Admin: 04/30/24 08:15 Dose: 40 mg Documented By: WILDER Multivitamins/Vitamin C (Multivitamin Tablet) 1 tab PO DAILY@0800 [facility] Last Admin: 04/30/24 08:15 Dose: 1 tab Documented By: WILDER Nystatin (Nystatin Oral Susp 500,000 Unit/5 Ml Oral.Susp) 500,000 unit PO QID [facility]; Protocol Ondansetron HCl (Ondansetron Hcl 4 Mg/2 Ml Vial) 4 mg IVPUSH Q8H PRN PRN Reason: Nausea and Vomiting Sodium Biphosphate/Sodium Phosphate (Sodium Phosphate,[place]-Dibasic 133 Ml Enema) 118 ml [place] DAILY PRN PRN Reason: Constipation Sodium Chloride (0.9 % Sodium Chloride Flush 3 Ml Syringe) 3 ml IVFLUSH QSHIFT [facility] Last Admin: 04/30/24 08:20 Dose: 3 ml Documented By: WILDER Labs 04/29/24 06:00 04/29/24 06:00 Microbiology Microbiology Results: Microbiology 04/28/24 10:36 Blood Culture - Preliminary Blood - Venous No growth after 48 hours. 04/28/24 10:36 Blood Culture - Preliminary Blood - Venous No growth after 48 hours. 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 Pt will be admitted to the hospital for treatment and further evaluation of acute on chronic hypoxic respiratory failure in the setting of bilateral pleural effusions with COPD exacerbation and underlying pneumonia. Acute on chronic respiratory failure in the setting of bilateral pleural effusions CXR showing pulmonary edema and bilateral moderate to large pleural effusions, new from prior 4 days ago on 04/24/2024 BNP 771, elevated from 223 on 04/24/2024 no CHF diagnosis, Echocardiogram showed EF 60-65%, impaired relaxation filling patterns, no pericardial effusion, inferior vena cava is normal in size and collapses greater than 50% with inspiration Seen by cardiology patient does not seem to be in CHF, RV strain likely cause of elevated BNP CT chest showed bilateral moderate pleural effusion, consulted IR for thoracocentesis due to hypotension they canceled the procedure due to low blood pressure. Likely parapneumonic effusion Acute Hypotension no nausea, no vomiting, no fevers, treated with IV fluids 500 mL yesterday with improvement in systolic BP 200, metoprolol discontinued Again noted to have systolic BP 72/51, IR again declined thoracocentesis due to hypotension Midodrine 10 mg x 1 given/IV albumin ordered Case discussed with engineering consultant and patient being transferred to ICU due to hypotension Oral thrush nystatin swish and spit ordered Right upper extremity swelling likely due to IV infiltration, keep arm elevated, hot compresses,cont. on Eliquis. Acute on chronic respiratory failure in the setting of COPD exacerbation ? underlying pneumonia No sepsis: Tachypnea but no fever, tachycardia, or leukocytosis above baseline Continue bronchodilators, Solu-Medrol, and Zosyn, started 04/28/2024 Titrate supplemental O2 >90, pt on 3L at baseline Monitor respiratory status Left lower extremity pain and swelling Appears chronic negative venous duplex US on 03/29/2024 and 04/24/2024 for same indication on Eliquis No indication to repeat US of left LE at this time Paroxysmal AFib recent sustained SVT s/p cardioversion Continue Eliquis, amiodarone Hold metoprolol due to soft BP Chronic leukocytosis hx of JAK2 positive myeloproliferative disorder CAD/HLD Continue statin Full Code DVT Prophylaxis: On Eliquis Case discussed with engineering consultant patient will be transferred to intensive care unit for acute hypotension Quality Stroke Does the patient have a stroke diagnosis?: No VTE Prior VTE?: No VTE Risk Level:: Medical - moderate - high VTE Device Contraindication: Treatment Not Indicated VTE Drug Contraindication: N/A - Med Ordered
[2024-04-30] MEDS: Nystatin Oral Susp 500,000 UNIT/5 ML ORAL.SUSP 500000 UNIT PO ×3 (14:00→19:53)
[2024-04-30 16:00] LABS: Lactic Acid 2.1 mmol/L (0.5-2.0)
--- NOTE | 2024-04-30 17:08 | W.PM.CCCN ---
History of Present Illness Data of Consult Service Date: 04/30/24 Primary Care Provider: Unknown Physician HPI Reason for consult: hypotension 88 years old gentleman with PMH significant for?COPD on home 3L O2, paroxysmal on Eliquis, JAK2-positive myeloproliferative disorder chronic leukocytosis, subclavian stenosis s/p stenting, CAD w/ hx of of NSTEMI, HTN, and active smoker recently discharged from hospital after management for acute encephalopathy, pneumonia presented back with hypoxia. CT chest with angiogram showed no evidence of PE, bilateral lower lobe pneumonia/atelectasis with effusions. He was planned to undergo a thoracentesis this afternoon but he was hypotensive so MICU was consulted. Review of Systems Constitutional: Constitutional: Denies daytime sleepiness and Denies difficulty sleeping Eyes: Eyes: Denies change in vision and Denies decreased night vision ENT: Denies Normal hearing present and Denies bleeding gums Cardiovascular: Cardiovascular: Denies Abdominal Cramping after Meds and Denies Abdominal Distension Respiratory: Respiratory: Denies change in phlegm color, Reports chest congestion and Reports cough Genitourinary: Genitourinary: Denies change in libido and Denies hematuria Musculoskeletal: Musculoskeletal: Denies back pain and Denies myalgias Neurologic: Denies Normal hearing present and Denies behavioral changes Psychiatric: Psychiatric: Denies behavioral changes and Denies change in libido Endocrine: Endocrine: Denies change in libido [facility] Past Medical History Medical History COPD (chronic obstructive pulmonary disease) Leukocytosis Polycythemia Fracture High cholesterol HTN (hypertension) Heart attack Family History Family History Daughter Aortic aneurysm Surgical History Surgical History S/P angiogram of extremity Hx of rotator cuff surgery H/O arthroscopy of shoulder Social History Social History Household Members: Family Housing: House Do you presently have visiting nurse or other home services: No Patient Tobacco Use Status: Current someday Tobacco user Tobacco use type: Cigarette Cigarette Packs Per Day: 1 Cigarettes Per Day: 20.0 Second Hand Smoke Exposure: No service: No Meds Allergies Allergy/AdvReac Type Severity Reaction Status Date / Time No Known Allergies Allergy Verified 04/28/24 08:50 [No Known Allergies*] Active Medications: Current Medications Acetaminophen (Acetaminophen 325 Mg Tablet) 650 mg PO Q6H PRN PRN Reason: Pain, Mild 1-3,fever,headache Last Admin: 04/29/24 22:18 Dose: 650 mg Albuterol Sulfate (Albuterol Sulfate (0.083%) 2.5 Mg/3 Ml Vial.Neb) 2.5 mg INHALE TID PRN PRN Reason: Shortness Of Breath Or Wheezing Albuterol Sulfate (Albuterol Sulfate 90 Mcg 8 Gm Inhaler) 1 puff INHALE QID PRN PRN Reason: asthma Albuterol/Ipratropium (Albuterol/Iprat 2.5/0.5mg 3 Ml Ampul.Neb) 3 ml INHALE RQ4H WHILE AWAKE [facility] Last Admin: 04/30/24 11:09 Dose: 3 ml Amiodarone HCl (Amiodarone Hcl 200 Mg Tablet) 200 mg PO DAILY@0800 [facility] Last Admin: 04/30/24 08:15 Dose: 200 mg Apixaban (Apixaban 5 Mg Tablet) 5 mg PO BID [facility] Last Admin: 04/30/24 08:15 Dose: 5 mg Aspirin (Aspirin 81 Mg Tab.Chew) 81 mg PO DAILY@0800 [facility] Last Admin: 04/30/24 08:15 Dose: 81 mg Atorvastatin Calcium (Atorvastatin Calcium 20 Mg Tablet) 20 mg PO DAILY@2000 [facility] Last Admin: 04/29/24 22:18 Dose: 20 mg Bisacodyl (Bisacodyl 10 Mg Supp.Rect) 10 mg NM DAILY PRN PRN Reason: Constipation Calcium Carbonate (Calcium Carbonate 750 Mg Tab.Chew) 750 mg PO Q4H PRN PRN Reason: Heartburn Cyanocobalamin (Cyanocobalamin (Vitamin B-12) 1,000 Mcg Tablet) 1,000 mcg PO DAILY@0800 [facility] Last Admin: 04/30/24 08:15 Dose: 1,000 mcg Fluticasone/Umeclidinium/Vilanterol (Fluticasone/Umeclidinium/Vilanterol 200/62.5/25 Blst.W.Dev) 1 puff INHALE RDAILY@0800 [facility] Last Admin: 04/30/24 11:09 Dose: 1 puff Albumin Human (Kedbumin 25 %) 100 mls @ 100 mls/hr IV Q6H [facility] Stop: 04/30/24 19:44 Last Infusion: 04/30/24 14:03 Dose: Infused Piperacillin Sod/Tazobactam (Sod 3.375 gm/ Sodium Chloride) 50 mls @ 100 mls/hr IV Q6H [facility] Magnesium Hydroxide (Milk Of Magnesia 30 Ml Oral.Susp) 30 ml PO DAILY PRN PRN Reason: Constipation Melatonin (Melatonin 3 Mg Tablet) 6 mg PO BEDTIME PRN PRN Reason: Insomnia Methylprednisolone Sodium Succinate (Methylprednisolone Sod Succ 40 Mg/Ml Vial) 40 mg IVPUSH Q12H [facility] Last Admin: 04/30/24 08:15 Dose: 40 mg Multivitamins/Vitamin C (Multivitamin Tablet) 1 tab PO DAILY@0800 [facility] Last Admin: 04/30/24 08:15 Dose: 1 tab Nystatin (Nystatin Oral Susp 500,000 Unit/5 Ml Oral.Susp) 500,000 unit PO QID [facility]; Protocol Last Admin: 04/30/24 14:00 Dose: 500,000 unit Ondansetron HCl (Ondansetron Hcl 4 Mg/2 Ml Vial) 4 mg IVPUSH Q8H PRN PRN Reason: Nausea and Vomiting Sodium Biphosphate/Sodium Phosphate (Sodium Phosphate,[place]-Dibasic 133 Ml Enema) 118 ml NM DAILY PRN PRN Reason: Constipation Sodium Chloride (0.9 % Sodium Chloride Flush 3 Ml Syringe) 3 ml IVFLUSH QSHIFT [facility] Last Admin: 04/30/24 17:08 Dose: 3 ml Home Medications ?Medication ?Instructions ?Recorded ?Confirmed ?Last Taken ?Type atorvastatin 20 mg tablet 20 mg PO DAILY@199902/22/20 04/28/24 02/13/24 09:00 History albuterol sulfate 2.5 mg/3 mL 2.5 mg inhalation TID PRN 02/13/24 04/28/24 02/13/24 09:00 History (0.083 %) solution for nebulization Shortness Of Breath Or Wheezing fluticasone fur. 200 mcg-umeclid 1 ea inhalation DAILY@0800 02/13/24 04/28/24 02/13/24 09:00 History 62.5 mcg-vilant 25 mcg inhalat.powder (Trelegy Ellipta) metoprolol succinate 50 mg 50 mg PO DAILY@0800 02/13/24 04/28/24 02/13/24 09:00 History tablet,extended release 24 hr alfdudsmypya-fevgrjjl-nwvaxe tablet 1 tab PO DAILY@0800 02/13/24 04/28/24 02/13/24 09:00 History aspirin 81 mg chewable tablet 81 mg PO DAILY@0800 03/30/24 04/28/24 Unknown History albuterol sulfate 90 mcg/actuation 1 puff inhalation QID PRN asthma 04/24/24 04/28/24 Unknown History aerosol inhaler cyanocobalamin (vitamin B-12) 1,000 mcg PO DAILY@0800 04/24/24 04/28/24 Unknown History 1,000 mcg tablet acetaminophen 325 mg tablet 650 mg PO Q6H PRN pain or fever 04/28/24 04/28/24 Unknown History amiodarone 200 mg tablet 200 mg PO DAILY@0800 04/28/24 04/28/24 Unknown History bisacodyl 10 mg rectal suppository 10 mg NM DAILY PRN Constipation 04/28/24 04/28/24 Unknown History furosemide 20 mg tablet 20 mg PO DAILY@0800 04/28/24 04/28/24 Unknown History magnesium hydroxide 400 mg/5 mL 30 ml PO DAILY PRN Constipation 04/28/24 04/28/24 Unknown History oral suspension (Milk of Magnesia) prednisone 20 mg tablet 20 mg PO DAILY@0800 04/28/24 04/28/24 Unknown History sodium phosphates 19 gram-7 118 ml NM DAILY PRN Constipation 04/28/24 04/28/24 Unknown History gram/118 mL enema (Fleet Enema) Physical Exam Vital Signs: Vital Signs: Last Vital Signs Temp 97.9 F 04/30/24 15:19 Pulse 69 04/30/24 16:56 Resp 26 H 04/30/24 16:56 BP 101/64 04/30/24 16:56 Pulse Ox 96 04/30/24 16:56 O2 Del Method Nasal Cannula 04/30/24 16:56 O2 Flow Rate 2 04/30/24 16:56 Oxygen Flow Rate 6 04/28/24 08:46 BMI result Body Mass Index 26.0 General: In some acute distress, ill appearing and tired appearing Nutritional Appearance: well nourished and overweight Eyes: appearance normal, both eyes and all related structures; Alignment and Position: alignment normal and position normal Neck: No lymphadenopathy, no thyromegaly Resp: bilateral air entry equal, bibasilar crackles heard, decreased breath sounds at the axillary area Cardio: Regular rate, regular rhythm; Heart sounds: S1 normal heart sound present and S2 normal heart sound present GI: soft, nontender, no guarding, no hepatosplenomegaly : bladder normal to inspection, bladder normal to palpation, no renal angle tenderness Skin: no rashes or lesions noted and elasticity normal Neuro: oriented to person, oriented to place, oriented to time and moves all extremities Neuro: Cranial nerves: No Normal hearing present Results Labs 04/29/24 06:00 04/29/24 06:00 Microbiology Microbiology Results: Microbiology 04/28/24 10:36 Blood - Venous Blood Culture - Preliminary No growth after 48 hours. 04/28/24 10:36 Blood - Venous Blood Culture - Preliminary No growth after 48 hours. Assessment and Plan (1) Asthma exacerbation in COPD: Status: Acute (2) Right lower lobe pneumonia: Qualifiers: Pneumonia type: due to unspecified organism Qualified Code(s): J18.9 - Pneumonia, unspecified organism Status: Acute (3) Acute on chronic hypoxic respiratory failure: Status: Acute (4) Pleural effusion: Status: Acute (5) COPD exacerbation: Status: Acute (6) GENEVIEVE (acute kidney injury): Status: Acute Plan Hypovolemic Shock: Bedside echo showing good LV systolic function, small RV and collapsible IVC is We will give him another L of normal saline, goal map above 65 mm Hg Paroxysmal atrial fibrillation: Currently in sinus rhythm Continue amiodarone rhythm control Continue apixaban for anticoagulation Bilateral pneumonia: Patient has bilateral pneumonia with bilateral effusions. The effusion is very small on the right, moderate in size in the left on bedside ultrasound. We will possibly do a thoracentesis when patient is more stable tomorrow. Pleural effusions are possibly see pneumonic COVID negative, influenza negative, RSV negative. We will get respiratory viral pathogen panel, MRSA nares Continue Zosyn COPD: On duo nebs as needed At baseline he is on home oxygen We will decrease Solu-Medrol to p.o. prednisone GI: Oral feeds Heme: Chronic anemia, closely monitor H&H, transfuse for hemoglobin less than 7 grams/deciliter Endocrine: Blood sugars under control Sliding scale insulin as needed Musculoskeletal: Decubitus ulcer prevention protocol Lines: We will place in his central line due to poor access Prophylaxis: Lovenox, pantoprazole Total time managing care of this patient today: 35 minutes.
[2024-04-30 17:41] LABS: Reflex Lactate? Lactic Acid Added
--- NOTE | 2024-04-30 18:00 | W.PM.CCHP ---
Procedures Date of Service Date of Service: 04/30/24 Central Line Placement Right IJ: Consent for Procedure: Elective - informed consent obtained Time out performed: Yes Sterile Technique Used: Yes Patient placed on monitor/pulse ox: Yes MD prep: mask, gown and gloves Central line prep: Chlorhexidine scrub Local anesthesia used: lidocaine 1% Amount of anesthesia used (ml): 10 Ultrasound used for placement: Yes Central line lumen inserted: triple Post procedure: sutured in place, good blood return and all ports aspirated, flushed, capped Post procedure x-ray: tip of catheter in good position and no pneumothorax seen Patient tolerated procedure: well and no complications Complications: none
[2024-04-30] MEDS: 0.9 % Sodium Chloride 1,000 ML 999 ML IV (18:02)
[2024-04-30 18:45] LABS: ~Lactic Acid-LAB USE ONLY 1.9 mmol/L (0.5-2.0)
--- NOTE | 2024-04-30 19:09 | PC.NURSE ---
Addendum entered by Maddison Li RN 04/30/24 19:23: Family brought patients dentures. Original Note: The patient arrived at the ICU approx. @ 1620? from? Med-tele.? Due to persistent hypotension admitted to ICU for close monitoring. Alert & Oriented. On 2L NC,? SpO2 96%. Wheezing? bilaterally. Intermittent wet cough. MRSA swab and respiratory panel sent to lab. Sinus Rhythm 1AV Block, Systolic BP in the 80s- 100s Dr. Sam aware of above vitals. Albumin and 1L Normal saline given per APR. LBM? 04/30, +bowel sounds, external catheter? in place. Scattered bruising.? Limited ROM to right arm, swollen and painful? Dr. Sam? made aware. Venous duplex order. TLC placed to? R. IJ,? bleeding at the site noted post insertion, Pressure applied. Dr. Sam at bedside.???
[2024-04-30] MEDS: Atorvastatin Calcium 20 MG TABLET PO (19:53)
[2024-04-30] MEDS: Melatonin 3 MG TABLET 6 MG PO (19:53)
[2024-04-30] MEDS: Acetaminophen 325 MG TABLET 650 MG PO (20:09)
[2024-04-30] MEDS: Norepinephrine Bitartrate/D5W 8 MG/250 ML PLAST..BAG 7.07 MG IVCONT (20:12)
[2024-04-30] MEDS: Tranexamic Acid 1,000 MG in 0.9 % Sodium Chloride 50 ML 360 MG IV (21:23)
[2024-04-30] MEDS: Lidocaine HCl 1 % 20 ML VIAL 5 ML INFILTRATI (21:23)
[2024-05-01] VITALS (50 sets, daily range): BP systolic 84–147; BP diastolic 47–77; PULSE 53–82; RESP 14–25; TEMP 35.8–37.3; O2SAT 90–99; BMI 26.0
[2024-05-01] MEDS: Piperacillin Sodium/Tazobactam 3.375 GM in 0.9 % Sodium Chloride 50 ML IV ×4 (01:54→20:16)
--- NOTE | 2024-05-01 02:10 | HE.NUR.EV ---
Status Change: Continuous oozing noted from R IJ TLC insertion site Immediate Actions Taken: Given TXA 500 mg subcutaneously around site by CINDY, and covered with 500 mg soaked in gauze. Catheter advanced to hub by CINDY and re-sutured. Surgicel applied at this time covered by gauze and tegaderm. Manual pressure held and sandbag subsequently applied on top of dressing Notifications: family Irving at bedside Further Monitoring and Treatment: Despite above interventions, oozing continued from site, TLC removed per PA at approx 0230, occlusive dressing applied, manual pressure held, and sandbag applied to achieve hemostasis. --- Status Change: Pt hypotensive- SBP < 90, MAP < 65 Immediate Actions Taken: Levophed gtt ordered and titrated to maintain MAP > 65 Notifications: CINDY Garcia, at bedside Further Monitoring and Treatment: NIBP q5min x30min, then q15min thereafter
[2024-05-01 04:51] LABS: VBG Base Excess 8.8 mmol/L; VBG HCO3 30 mmol/L (22-26); VBG pCO2 31 mmHg; VBG pH 7.59 (7.32-7.43); VBG pO2 43 mmHg
[2024-05-01 04:53] LABS: Venous Blood Gas Refer to POC result
[2024-05-01 04:54] LABS: Basophils Absolute Auto 0.1 X10*3/uL (0.0-0.2); Basophils Percent Auto 0.2 % (0-2); Eosinophils Absolute Auto 0.1 X10*3/uL (0.0-0.4); Eosinophils Percent Auto 0.3 % (0-4); Hematocrit 25.3 % (42.0-52.0); Imm Gran Abs Auto 0.84 X10*3/uL (0.00-0.03); Imm Gran Pct Auto 2.3 % (0.0-0.4); Lymphocytes Absolute Auto 0.5 X10*3/uL (1.2-4.9); Lymphocytes Percent Auto 1.3 % (20-40); MANUAL DIFF FLAG SCAN; Mean Corpuscular HGB Conc 27.3 g/dl (31.0-36.0); Mean Corpuscular Hemoglobin 16.4 pg (27.0-33.0); Monocytes Absolute Auto 2.5 X10*3/uL (0.1-1.2); Monocytes Percent Auto 7.1 % (2-11); NRBC Pct Auto 0.9 /100WBC (0.0-0.2); Neutrophils Percent Auto 88.8 % (45-73); PLT CLUMP 1; Red Blood Count 4.22 X10*6/uL (4.60-5.80); SCAN SMEAR FLAG 1
[2024-05-01 05:01] LABS: Hemoglobin 6.9 g/dl (14.0-18.0)
[2024-05-01 05:11] LABS: Alanine Aminotransferase 21 U/L (0-40); Albumin Level 3.4 g/dL (3.5-5.0); Alkaline Phosphatase 53 U/L (39-117); Anion Gap 8 (12-20); Aspartate Amino Transferase 17 U/L (5-37); Bilirubin Total 0.4 mg/dL (0.0-1.0); Blood Urea Nitrogen 18 mg/dL (9-16); Carbon Dioxide 30 mmol/L (22-29); Chloride 109 mmol/L (96-108); Creatinine Clr Calc Pharmacy 46.8; Estimated Glomerular Filt Rate > 60; Glucose Random 121 mg/dL (60-115); Magnesium 1.9 mg/dL (1.6-2.6); Phosphorus 2.7 mg/dL (2.7-4.5); Potassium 3.3 mmol/L (3.3-5.1); Sodium 144 mmol/L (135-145); Total Protein 5.5 g/dL (6.5-8.0)
[2024-05-01 05:21] LABS: Platelet Count 395 X10*3/uL (160-400)
[2024-05-01 05:22] LABS: SLIDE REVIEW VERIFIED
[2024-05-01] MEDS: Albuterol/Iprat 2.5/0.5MG 3 ML AMPUL.NEB INHALE ×3 (08:10→20:28)
[2024-05-01] MEDS: predniSONE 20 MG TABLET 40 MG PO (08:58)
[2024-05-01] MEDS: Multivitamin TABLET 1 TAB PO (08:58)
[2024-05-01] MEDS: Nystatin Oral Susp 500,000 UNIT/5 ML ORAL.SUSP 500000 UNIT PO ×4 (08:59→20:14)
[2024-05-01] MEDS: Cyanocobalamin (Vitamin B-12) 1,000 MCG TABLET 1000 MCG PO (08:59)
[2024-05-01 09:27] LABS: MRSA Nasal PCR NEGATIVE (Negative); SA Nasal PCR NEGATIVE (Negative)
[2024-05-01] MEDS: 0.9 % Sodium Chloride Flush 3 ML SYRINGE IVFLUSH ×3 (09:27→21:25)
[2024-05-01] MEDS: Fluticasone/Umeclidinium/Vilanterol 200/62.5/25 BLST.W.DEV 1 PUFF INHALE (09:28)
[2024-05-01] MEDS: Hum Prothrombin Cplx(PCC)4Fact 2,000 UNIT in Container,Empty 0 ML 480 UNIT IV ×2 (10:20→12:34)
[2024-05-01 10:26] LABS: Adenovirus PCR Not Detected (Not Detect.); Bordetella parapertussis PCR Not Detected (Not Detect.); Bordetella pertussis PCR Not Detected (Not Detect.); Chlamydia pneumoniae PCR Not Detected (Not Detect.); Coronavirus 229E PCR Not Detected (Not Detect.); Coronavirus HKU1 PCR Not Detected (Not Detect.); Coronavirus NL63 PCR Not Detected (Not Detect.); Coronavirus OC43 PCR Not Detected (Not Detect.); Human metapneumovirus PCR Not Detected (Not Detect.); Influenza A PCR Not Detected (Not Detect.); Influenza B PCR Not Detected (Not Detect.); Mycoplasma pneumoniae PCR Not Detected (Not Detect.); Parainfluenza 1 PCR Not Detected (Not Detect.); Parainfluenza 2 PCR Not Detected (Not Detect.); Parainfluenza 3 PCR Not Detected (Not Detect.); Parainfluenza 4 PCR Not Detected (Not Detect.); RSV PCR Not Detected (Not Detect.); Rhino/Enterovirus PCR Not Detected (Not Detect.)
[2024-05-01 10:30] LABS: Hematocrit 26.5 % (42.0-52.0); Hemoglobin 7.9 g/dl (14.0-18.0); Mean Corpuscular HGB Conc 29.8 g/dl (31.0-36.0); Mean Corpuscular Hemoglobin 18.9 pg (27.0-33.0); NRBC Pct Auto 0.7 /100WBC (0.0-0.2); PLT CLUMP 1; Red Blood Count 4.18 X10*6/uL (4.60-5.80); Red Cell Distribution Width 32.4 % (11.0-16.0)
[2024-05-01 10:32] LABS: Mean Corpuscular Volume 63.4 fL (80.0-98.0); Platelet Count 328 X10*3/uL (160-400); White Blood Count 29.2 X10*3/uL (4.8-10.8)
[2024-05-01 10:36] LABS: INTERNATIONAL NORM RATIO 2.8 (0.9-1.1); Prothrombin Time 33.1 SEC (10.9-12.4)
--- NOTE | 2024-05-01 10:57 | PM.CCPN ---
Subjective Subjective Date of Service: 05/01/24 Critical Care Time (minutes): 35 Comment: Blood pressure is better but has a large hematoma in his right upper arm and also oozing of the blood through right IJ central line site Physical Exam Vital Signs: Vital Signs: Last Vital Signs Temp 97.9 F 05/01/24 10:56 Pulse 63 05/01/24 10:56 Resp 18 05/01/24 10:56 BP 120/59 L 05/01/24 10:56 Pulse Ox 94 05/01/24 10:00 O2 Del Method Nasal Cannula 05/01/24 10:00 O2 Flow Rate 2 05/01/24 10:00 Oxygen Flow Rate 6 04/28/24 08:46 BMI result Body Mass Index 26.0 General: In mild acute distress, ill appearing and tired appearing Nutritional Appearance: well nourished and overweight Eyes: appearance normal, both eyes and all related structures; Alignment and Position: alignment normal and position normal Neck: No lymphadenopathy, no thyromegaly Resp: bilateral air entry equal, occasional added sounds present Cardio: Regular rate, regular rhythm; Heart sounds: S1 normal heart sound present and S2 normal heart sound present GI: soft, nontender, no guarding, no hepatosplenomegaly : bladder normal to inspection, bladder normal to palpation, no renal angle tenderness Skin: Swollen right arm, Neuro: oriented to person, oriented to place, oriented to time and moves all extremities Objective Data Labs 05/01/24 10:20 05/01/24 04:45 Labs: Laboratory Results - last 24 hr 04/30/24 04/30/24 04/30/24 15:35 18:07 18:10 WBC RBC Hgb Hct MCV MCH MCHC RDW Plt Count MPV Immature Gran % (Auto) Neut % (Auto) Lymph % (Auto) Douglas % (Auto) Eos % (Auto) Baso % (Auto) Lymph # (Auto) Douglas # (Auto) Eos # (Auto) Baso # (Auto) Abs Immat Gran (auto) Absolute Neuts (auto) Absolute Nucleated RBC Nucleated RBC % (auto) Smear Tech's Comments PT INR VBG pH VBG pCO2 VBG pO2 VBG HCO3 VBG Base Excess Sodium Potassium Chloride Carbon Dioxide Anion Gap BUN Creatinine Estim Creat Clear Calc Estimated GFR Random Glucose Lactic Acid 2.1 H* Lactic Acid F/U @ 2Hr 1.9 Calcium Phosphorus Magnesium Total Bilirubin AST ALT Alkaline Phosphatase Total Protein Albumin Nasal Screen MRSA (PCR) NEGATIVE Nasal S. aureus Screen NEGATIVE Nasal MRSA/S.aureus Interp SEE NOTE Blood Type Antibody Screen Crossmatch 05/01/24 05/01/24 05/01/24 04:45 04:46 10:20 WBC 36.0 H* 29.2 H RBC 4.22 L D 4.18 L Hgb 6.9 L* D 7.9 L Hct 25.3 L D 26.5 L MCV 60.0 L 63.4 L MCH 16.4 L 18.9 L MCHC 27.3 L 29.8 L RDW 28.0 H 32.4 H Plt Count 395 D 328 MPV Not Reportable Immature Gran % (Auto) 2.3 H Neut % (Auto) 88.8 H Lymph % (Auto) 1.3 L Douglas % (Auto) 7.1 Eos % (Auto) 0.3 Baso % (Auto) 0.2 Lymph # (Auto) 0.5 L Douglas # (Auto) 2.5 H Eos # (Auto) 0.1 Baso # (Auto) 0.1 Abs Immat Gran (auto) 0.84 H Absolute Neuts (auto) 32.0 H Absolute Nucleated RBC 0.320 H 0.190 H Nucleated RBC % (auto) 0.9 H 0.7 H Smear Tech's Comments VERIFIED PT 33.1 H D INR 2.8 H VBG pH 7.59 H VBG pCO2 31 VBG pO2 43 VBG HCO3 30 H VBG Base Excess 8.8 Sodium 144 Potassium 3.3 Chloride 109 H Carbon Dioxide 30 H Anion Gap 8 L BUN 18 H Creatinine 1.02 Estim Creat Clear Calc 46.8 Estimated GFR > 60 Random Glucose 121 H Lactic Acid Lactic Acid F/U @ 2Hr Calcium 8.0 L Phosphorus 2.7 Magnesium 1.9 Total Bilirubin 0.4 AST 17 ALT 21 Alkaline Phosphatase 53 Total Protein 5.5 L Albumin 3.4 L Nasal Screen MRSA (PCR) Nasal S. aureus Screen Nasal MRSA/S.aureus Interp Blood Type A Positive Antibody Screen NEGATIVE Crossmatch See Detail Microbiology Microbiology Results: Microbiology 04/28/24 10:36 Blood - Venous Blood Culture - Preliminary No growth after 48 hours. 04/28/24 10:36 Blood - Venous Blood Culture - Preliminary No growth after 48 hours. Progress Note: A&P Assessment and plan (1) Angina pectoris: Status: Acute (2) Acute on chronic hypoxic respiratory failure: Status: Acute (3) COPD exacerbation: Status: Acute (4) Right lower lobe pneumonia: Status: Acute (5) Asthma exacerbation in COPD: Status: Acute (6) GENEVIEVE (acute kidney injury): Status: Acute Plan Hypovolemic Shock: Improved with volume replacement Bedside echo showing good LV systolic function, small RV and collapsible IVCs We will give him another L of normal saline, goal map above 65 mm Hg Paroxysmal atrial fibrillation: Currently in sinus rhythm, rate controlled amiodarone rhythm control with held due to bradycardia apixaban for anticoagulation withheld due to bleeding Bilateral pneumonia: Patient has bilateral pneumonia with bilateral effusions. The effusion is very small on the right, moderate in size in the left on bedside ultrasound. But given patient's extensive bleeding tendency in her arm and following a central line we will withhold on thoracentesis for now COVID negative, influenza negative, RSV negative. We will get respiratory viral pathogen panel, MRSA nares Continue Zosyn COPD: On duo nebs as needed At baseline he is on home oxygen Continue p.o. prednisone GI: Oral feeds Heme: Acute blood loss anemia: Secondary to hematoma in the right arm and also oozing through the central line placement area Received a dose of Kcentra, 2 units of FFP and 1 units PRBC this morning Repeat CBC shows hemoglobin 7.8 Acute hypokalemia: will replace as per protocol Endocrine: Blood sugars under control Sliding scale insulin as needed Musculoskeletal: Decubitus ulcer prevention protocol Prophylaxis: SCD pantoprazole Quality Stroke Does the patient have a stroke diagnosis?: No VTE Prior VTE?: No VTE Risk Level:: Medical - moderate - high VTE Device Contraindication: Treatment Not Indicated VTE Drug Contraindication: N/A - Med Ordered
[2024-05-01 11:27] LABS: SARS-CoV-2 PCR Not Detected (Not Detect.)
--- NOTE | 2024-05-01 14:59 | MHC.CM.PN ---
This CM met with pt per son Anil's request, he has asked to be added on as an alternate HCP. This CM met with pt to confirm this is his wish, he agreed. New HCP completed with pt, now on file.
[2024-05-01 16:32] LABS: Hematocrit 23.1 % (42.0-52.0); Mean Corpuscular HGB Conc 29.4 g/dl (31.0-36.0); Mean Corpuscular Hemoglobin 18.5 pg (27.0-33.0); NRBC Pct Auto 0.6 /100WBC (0.0-0.2); Platelet Count 289 X10*3/uL (160-400); Red Blood Count 3.67 X10*6/uL (4.60-5.80); White Blood Count 23.9 X10*3/uL (4.8-10.8)
[2024-05-01 16:34] LABS: Mean Corpuscular Volume 62.9 fL (80.0-98.0); PLT ABN DIST 1
[2024-05-01] MEDS: Desmopressin Acetate 20 MCG in 0.9 % Sodium Chloride 50 ML 100 MCG IV (16:35)
[2024-05-01 16:36] LABS: INTERNATIONAL NORM RATIO 1.7 (0.9-1.1); Prothrombin Time 19.6 SEC (10.9-12.4)
[2024-05-01 16:37] LABS: Hemoglobin 6.8 g/dl (14.0-18.0)
--- NOTE | 2024-05-01 19:37 | PC.NURSE ---
N-patient alert and oriented x4, denied pain or discomfort at rest. ? discomfort to right arm with movement.? CV-off pressors and BP maintaining MAP >65, 4 FFP, 2 RBC?s, 2 Kcentra and Dasopressin given this shift, right neck wound continues oozing blood all shift, dressing changed multiple times this shift. Pulm- updrafts given as order, wheezing continues, O2 sat >90 with good pleth.?? GI- BM x3, using bedpan small soft? light brown stool noted, tolerating diet well - external purewick in place as condom cath continue to fall off, draining clear yellow urine.
[2024-05-01] MEDS: Atorvastatin Calcium 20 MG TABLET PO (20:15)
[2024-05-01] MEDS: Tranexamic Acid 1,000 MG in 0.9 % Sodium Chloride 50 ML 360 MG IV (21:24)
[2024-05-01 22:08] LABS: Hematocrit 25.2 % (42.0-52.0); Hemoglobin 7.8 g/dl (14.0-18.0)
[2024-05-01 22:16] LABS: INTERNATIONAL NORM RATIO 1.7 (0.9-1.1); Prothrombin Time 19.9 SEC (10.9-12.4)
[2024-05-01] MEDS: guaiFENesin LA 600 MG TAB.ER.12H PO (22:26)
[2024-05-02] VITALS (33 sets, daily range): BP systolic 104–159; BP diastolic 47–89; PULSE 65–80; RESP 11–28; TEMP 36.3–37; O2SAT 90–100; BMI 26.0
[2024-05-02] MEDS: Piperacillin Sodium/Tazobactam 3.375 GM in 0.9 % Sodium Chloride 50 ML IV ×4 (03:30→20:54)
[2024-05-02 04:06] LABS: Basophils Percent Auto 0.1 % (0-2); Eosinophils Absolute Auto 0.1 X10*3/uL (0.0-0.4); Eosinophils Percent Auto 0.6 % (0-4); Hematocrit 21.3 % (42.0-52.0); Imm Gran Abs Auto 0.67 X10*3/uL (0.00-0.03); Imm Gran Pct Auto 3.2 % (0.0-0.4); Lymphocytes Absolute Auto 0.2 X10*3/uL (1.2-4.9); Lymphocytes Percent Auto 1.1 % (20-40); MANUAL DIFF FLAG SCAN; Mean Corpuscular HGB Conc 31.5 g/dl (31.0-36.0); Mean Corpuscular Hemoglobin 20.6 pg (27.0-33.0); Mean Corpuscular Volume 65.3 fL (80.0-98.0); Monocytes Absolute Auto 1.3 X10*3/uL (0.1-1.2); Monocytes Percent Auto 6.2 % (2-11); NRBC Pct Auto 0.9 /100WBC (0.0-0.2); Neutrophils Absolute Auto 18.7 x10*3/uL (2.0-8.3); Neutrophils Percent Auto 88.8 % (45-73); PLT CLUMP 1; Red Blood Count 3.26 X10*6/uL (4.60-5.80); Red Cell Distribution Width 32.5 % (11.0-16.0); SCAN SMEAR FLAG 1
[2024-05-02 04:11] LABS: INTERNATIONAL NORM RATIO 1.6 (0.9-1.1); Prothrombin Time 18.5 SEC (10.9-12.4)
[2024-05-02 04:13] LABS: Partial Thromboplastin Time 38.4 SEC (26.0-36.8)
[2024-05-02 04:23] LABS: Platelet Count 229 X10*3/uL (160-400); White Blood Count 21.1 X10*3/uL (4.8-10.8)
[2024-05-02 04:24] LABS: Hemoglobin 6.7 g/dl (14.0-18.0); SLIDE REVIEW VERIFIED
[2024-05-02 04:28] LABS: Alanine Aminotransferase 20 U/L (0-40); Albumin Level 3.6 g/dL (3.5-5.0); Anion Gap 12 (12-20); Aspartate Amino Transferase 20 U/L (5-37); Bilirubin Total 0.5 mg/dL (0.0-1.0); Blood Urea Nitrogen 15 mg/dL (9-16); Calcium 8.5 mg/dL (8.4-10.2); Carbon Dioxide 32 mmol/L (22-29); Chloride 107 mmol/L (96-108); Creatinine Clr Calc Pharmacy 49.7; Estimated Glomerular Filt Rate > 60; Glucose Random 110 mg/dL (60-115); Potassium 3.2 mmol/L (3.3-5.1); Sodium 148 mmol/L (135-145)
[2024-05-02] MEDS: Furosemide 40 MG/4 ML VIAL IVPUSH (04:29)
[2024-05-02 04:32] LABS: Alkaline Phosphatase 58 U/L (39-117)
[2024-05-02] MEDS: Potassium Chloride ER 20 MEQ TAB.ER.PRT 40 MEQ PO (04:44)
[2024-05-02 04:47] LABS: B Type Natriuretic Peptide 381 pg/mL (<100)
[2024-05-02] MEDS: Albuterol/Iprat 2.5/0.5MG 3 ML AMPUL.NEB INHALE ×5 (05:21→20:06)
--- NOTE | 2024-05-02 07:04 | HE.NUR.EV ---
Status Change: Throughout entire 7p-7a shift, pt still continuously oozing blood from previous R IJ TLC insertion site, requiring multiple dressing changes with surgicel applied. Immediate Actions Taken: New orders for TXA 1000 mg IV x1, 2 units FFP, 1 unit pRBC. Notifications: CINDY Garcia Further Monitoring and Treatment: Pt remained hemodynamically stable despite bleeding- HR 60-70s, SBP 120-140s. Additionally, 1:1 sitter at bedside to hold manual pressure to site. --- Status Change: Pt with dyspnea- RR 30s, shallow, SpO2 90-92% via 2L NC. LS with wheezing and fine crackles bilaterally after blood product administrations. Immediate Actions Taken: New orders for duoneb x1, pCXR, lasix 40 mg IVP x1 and Klor-Con 40 mEq x1. Notifications: CINDY Garcia, RT Further Monitoring and Treatment: Pt denies SOB, RR 20-30, decreased adventitious LS. UOP approx 1,150 mL via male external purewick.
[2024-05-02] MEDS: Fluticasone/Umeclidinium/Vilanterol 200/62.5/25 BLST.W.DEV 1 PUFF INHALE (08:05)
[2024-05-02] MEDS: 0.9 % Sodium Chloride Flush 3 ML SYRINGE IVFLUSH ×3 (08:17→20:55)
[2024-05-02] MEDS: Multivitamin TABLET 1 TAB PO (08:22)
[2024-05-02] MEDS: predniSONE 20 MG TABLET 40 MG PO (08:22)
[2024-05-02] MEDS: Cyanocobalamin (Vitamin B-12) 1,000 MCG TABLET 1000 MCG PO (08:22)
[2024-05-02] MEDS: Nystatin Oral Susp 500,000 UNIT/5 ML ORAL.SUSP 500000 UNIT PO ×4 (08:22→20:58)
[2024-05-02 09:04] LABS: Hemoglobin 8.3 g/dl (14.0-18.0)
[2024-05-02 09:06] LABS: Hematocrit 26.1 % (42.0-52.0)
--- NOTE | 2024-05-02 10:08 | P.PNCC_ITS ---
Subjective Subjective Date of Service: 05/02/24 Critical Care Time (minutes): 35 Comment: Oozing from the neck has decreased, arms size the same. Received 1 unit of PRBC overnight Physical Exam 2 Vital Signs: Vital Signs: Last Vital Signs Temp 98.6 F 05/02/24 08:14 Pulse 68 05/02/24 08:14 Resp 15 05/02/24 08:14 BP 129/47 L 05/02/24 08:14 Pulse Ox 92 05/02/24 07:00 O2 Del Method Nasal Cannula 05/02/24 07:00 O2 Flow Rate 2 05/02/24 07:00 Oxygen Flow Rate 6 04/28/24 08:46 BMI result Body Mass Index 26.0 General: In mild acute distress, ill appearing and tired appearing Nutritional Appearance: well nourished and overweight Eyes: appearance normal, both eyes and all related structures; Alignment and Position: alignment normal and position normal Neck: No lymphadenopathy, no thyromegaly, next slightly swollen, no impending airway obstruction Resp: bilateral air entry equal, occasional added sounds present Cardio: Regular rate, regular rhythm; Heart sounds: S1 normal heart sound present and S2 normal heart sound present GI: soft, nontender, no guarding, no hepatosplenomegaly : bladder normal to inspection, bladder normal to palpation, no renal angle tenderness Skin: no rashes or lesions noted and elasticity normal, right arm swollen all the way to the forearm, hematoma noted Neuro: oriented to person, oriented to place, oriented to time and moves all extremities Objective Data Labs 05/02/24 08:48 05/02/24 03:59 Labs: Laboratory Results - last 24 hr 04/30/24 05/01/24 05/01/24 18:07 04:45 04:46 WBC RBC Hgb Hct MCV MCH MCHC RDW Plt Count MPV Immature Gran % (Auto) Neut % (Auto) Lymph % (Auto) [place]cl[place] % (Auto) Eos % (Auto) Baso % (Auto) Lymph # (Auto) [place] # (Auto) Eos # (Auto) Baso # (Auto) Abs Immat Gran (auto) Absolute Neuts (auto) Absolute Nucleated RBC Nucleated RBC % (auto) Smear Tech's Comments PT INR APTT VBG O2 Saturation TNP Sodium Potassium Chloride Carbon Dioxide Anion Gap BUN Creatinine Estim Creat Clear Calc Estimated GFR Random Glucose Calcium Total Bilirubin AST ALT Alkaline Phosphatase B-Natriuretic Peptide Total Protein Albumin Hold Yellow Top Nasal Screen MRSA (PCR) NEGATIVE Nasal S. aureus Screen NEGATIVE Nasal MRSA/S.aureus Interp SEE NOTE Respiratory Panel [place] See Note Adenovirus (Rapid PCR) Not Detected B.pert (TEM-PCR) Not Detected B.parapertussis DNA PCR Not Detected C. pneumoniae DNA (PCR) Not Detected Coronavirus OC43 (PCR) Not Detected Coronavirus HKU1 (PCR) Not Detected Coronavirus 229E (PCR) Not Detected Coronavirus NL63 (PCR) Not Detected Human Metapneumovir PCR Not Detected Influenza A (RT-PCR) Not Detected Influenza B (RT-PCR) Not Detected M. pneumoniae (PCR) Not Detected Parainfluenza 1 (PCR) Not Detected Parainfluenza 2 (PCR) Not Detected Parainfluenza 3 (PCR) Not Detected Parainfluenza 4 (PCR) Not Detected RSV (PCR) Not Detected Entero/Rhino (PCR) Not Detected SARS-CoV-2 RNA (RT-PCR) Not Detected Blood Type A Positive Antibody Screen NEGATIVE Crossmatch See Detail 05/01/24 05/01/24 05/01/24 10:20 16:19 21:56 WBC 29.2 H 23.9 H RBC 4.18 L 3.67 L Hgb 7.9 L 6.8 L* Hct 26.5 L 23.1 L MCV 63.4 L 62.9 L MCH 18.9 L 18.5 L MCHC 29.8 L 29.4 L RDW 32.4 H 32.0 H Plt Count 328 289 MPV Not Reportable TNP Immature Gran % (Auto) Neut % (Auto) Lymph % (Auto) [place] % (Auto) Eos % (Auto) Baso % (Auto) Lymph # (Auto) [place] # (Auto) Eos # (Auto) Baso # (Auto) Abs Immat Gran (auto) Absolute Neuts (auto) Absolute Nucleated RBC 0.190 H 0.140 H Nucleated RBC % (auto) 0.7 H 0.6 H Smear Tech's Comments PT 33.1 H D 19.6 H D 19.9 H INR 2.8 H 1.7 H 1.7 H APTT VBG O2 Saturation Sodium Potassium Chloride Carbon Dioxide Anion Gap BUN Creatinine Estim Creat Clear Calc Estimated GFR Random Glucose Calcium Total Bilirubin AST ALT Alkaline Phosphatase B-Natriuretic Peptide Total Protein Albumin Hold Yellow Top See Note Nasal Screen MRSA (PCR) Nasal S. aureus Screen Nasal MRSA/S.aureus Interp Respiratory Panel [place] Adenovirus (Rapid PCR) B.pert (TEM-PCR) B.parapertussis DNA PCR C. pneumoniae DNA (PCR) Coronavirus OC43 (PCR) Coronavirus HKU1 (PCR) Coronavirus 229E (PCR) Coronavirus NL63 (PCR) Human Metapneumovir PCR Influenza A (RT-PCR) Influenza B (RT-PCR) M. pneumoniae (PCR) Parainfluenza 1 (PCR) Parainfluenza 2 (PCR) Parainfluenza 3 (PCR) Parainfluenza 4 (PCR) RSV (PCR) Entero/Rhino (PCR) SARS-CoV-2 RNA (RT-PCR) Blood Type Antibody Screen Crossmatch 05/01/24 05/02/24 05/02/24 22:00 03:59 08:48 WBC 21.1 H RBC 3.26 L Hgb 7.8 L 6.7 L* 8.3 L D Hct 25.2 L 21.3 L 26.1 L D MCV 65.3 L MCH 20.6 L MCHC 31.5 RDW 32.5 H Plt Count 229 MPV Immature Gran % (Auto) 3.2 H Neut % (Auto) 88.8 H Lymph % (Auto) 1.1 L Mclennan % (Auto) 6.2 Eos % (Auto) 0.6 Baso % (Auto) 0.1 Lymph # (Auto) 0.2 L [place]clennan # (Auto) 1.3 H Eos # (Auto) 0.1 Baso # (Auto) 0.0 Abs Immat Gran (auto) 0.67 H Absolute Neuts (auto) 18.7 H Absolute Nucleated RBC 0.200 H Nucleated RBC % (auto) 0.9 H Smear Tech's Comments VERIFIED PT 18.5 H INR 1.6 H APTT 38.4 H VBG O2 Saturation Sodium 148 H Potassium 3.2 L Chloride 107 Carbon Dioxide 32 H Anion Gap 12 BUN 15 Creatinine 0.96 Estim Creat Clear Calc 49.7 Estimated GFR > 60 Random Glucose 110 Calcium 8.5 D Total Bilirubin 0.5 AST 20 ALT 20 Alkaline Phosphatase 58 B-Natriuretic Peptide 381 H Total Protein 6.0 L Albumin 3.6 Hold Yellow Top Nasal Screen MRSA (PCR) Nasal S. aureus Screen Nasal MRSA/S.aureus Interp Respiratory Panel [place] Adenovirus (Rapid PCR) B.pert (TEM-PCR) B.parapertussis DNA PCR C. pneumoniae DNA (PCR) Coronavirus OC43 (PCR) Coronavirus HKU1 (PCR) Coronavirus 229E (PCR) Coronavirus NL63 (PCR) Human Metapneumovir PCR Influenza A (RT-PCR) Influenza B (RT-PCR) M. pneumoniae (PCR) Parainfluenza 1 (PCR) Parainfluenza 2 (PCR) Parainfluenza 3 (PCR) Parainfluenza 4 (PCR) RSV (PCR) Entero/Rhino (PCR) SARS-CoV-2 RNA (RT-PCR) Blood Type Antibody Screen Crossmatch Microbiology Microbiology Results: Microbiology 04/30/24 15:35 Blood - Venous Blood Culture - Preliminary No growth after 24 hours. 04/30/24 15:35 Blood - Venous Blood Culture - Preliminary No growth after 24 hours. 04/28/24 10:36 Blood - Venous Blood Culture - Preliminary No growth after 48 hours. 04/28/24 10:36 Blood - Venous Blood Culture - Preliminary No growth after 48 hours. 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 The effusion is very small on the right, moderate in size in the left on bedside ultrasound. But given patient's extensive bleeding tendency in her arm and following a central line we will withhold on thoracentesis for now COVID negative, influenza negative, RSV negative. We will get respiratory viral pathogen panel, MRSA nares Continue Zosyn COPD: On duo nebs as needed At baseline he is on home oxygen Continue p.o. prednisone GI: Oral feeds Heme: Acute blood loss anemia: Secondary to hematoma in the right arm and also oozing through the central line placement area. Oozing through the central line area seems to be better this morning Received 2 doses of Kcentra, 6 units of FFP and 3 units PRBC so far in total. One PRBC this morning. Repeat CBC shows hemoglobin 8.3 Acute hypokalemia: will replace as per protocol Acute hypernatremia: Secondary to volume depletion, we will encourage oral fluid intake Endocrine: Blood sugars under control Sliding scale insulin as needed Musculoskeletal: Decubitus ulcer prevention protocol Prophylaxis: SCD pantoprazole Quality Stroke Does the patient have a stroke diagnosis?: No VTE Prior VTE?: No VTE Risk Level:: Medical - moderate - high VTE Device Contraindication: Treatment Not Indicated VTE Drug Contraindication: N/A - Med Ordered
[2024-05-02] MEDS: Amiodarone HCL 200 MG TABLET PO (10:43)
--- NOTE | 2024-05-02 14:47 | P.PNGS_ITS ---
Subjective Subjective Date of Service: 05/02/24 Interval history: right arm feeling painful but better Physical Exam 2 Vital Signs: Vital Signs: Last Vital Signs Temp 98.6 F 05/02/24 08:14 Pulse 65 05/02/24 11:58 Resp 14 05/02/24 11:58 BP 139/68 05/02/24 11:00 Pulse Ox 90 L 05/02/24 11:00 O2 Del Method Nasal Cannula 05/02/24 11:00 O2 Flow Rate 2 05/02/24 11:00 Oxygen Flow Rate 6 04/28/24 08:46 BMI result Body Mass Index 26.0 Extrem: Other: right upper extremity with bruising significant area but not expanded compared to yesterday - peripheral pulse noted Objective Data Active Medications Acetaminophen (Acetaminophen 325 Mg Tablet) 650 mg PO Q6H PRN PRN Reason: Pain, Mild 1-3,fever,headache Last Admin: 04/30/24 20:09 Dose: 650 mg Documented By: JAMES Albuterol Sulfate (Albuterol Sulfate (0.083%) 2.5 Mg/3 Ml Vial.Neb) 2.5 mg INHALE TID PRN PRN Reason: Shortness Of Breath Or Wheezing Albuterol Sulfate (Albuterol Sulfate 90 Mcg 8 Gm Inhaler) 1 puff INHALE QID PRN PRN Reason: asthma Albuterol/Ipratropium (Albuterol/Iprat 2.5/0.5mg 3 Ml Ampul.Neb) 3 ml INHALE RQ4H WHILE AWAKE [facility] Last Admin: 05/02/24 11:58 Dose: 3 ml Documented By: SHWETA Amiodarone HCl (Amiodarone Hcl 200 Mg Tablet) 200 mg PO DAILY@0800 [facility] Last Admin: 05/02/24 10:43 Dose: 200 mg Documented By: HALEY Apixaban (Apixaban 5 Mg Tablet) 5 mg PO BID [facility] Last Admin: 05/01/24 09:34 Dose: Not Given Documented By: POLI Non-Admin Reason: Physician Held Med Aspirin (Aspirin 81 Mg Tab.Chew) 81 mg PO DAILY@0800 [facility] Last Admin: 05/01/24 09:34 Dose: Not Given Documented By: POLI Non-Admin Reason: Physician Held Med Atorvastatin Calcium (Atorvastatin Calcium 20 Mg Tablet) 20 mg PO DAILY@1999 [facility] Last Admin: 05/01/24 20:15 Dose: 20 mg Documented By: JAMES Bisacodyl (Bisacodyl 10 Mg Supp.Rect) 10 mg CA DAILY PRN PRN Reason: Constipation Calcium Carbonate (Calcium Carbonate 750 Mg Tab.Chew) 750 mg PO Q4H PRN PRN Reason: Heartburn Cyanocobalamin (Cyanocobalamin (Vitamin B-12) 1,000 Mcg Tablet) 1,000 mcg PO DAILY@0800 [facility] Last Admin: 05/02/24 08:22 Dose: 1,000 mcg Documented By: POLI Fluticasone/Umeclidinium/Vilanterol (Fluticasone/Umeclidinium/Vilanterol 200/.5 Blst.W.Dev) 1 puff INHALE RDAILY@0800 [facility] Last Admin: 05/02/24 08:05 Dose: 1 puff Documented By: SHWETA Guaifenesin (Guaifenesin La 600 Mg Tab.Er.12h) 600 mg PO BID PRN PRN Reason: Cough Last Admin: 05/01/24 22:26 Dose: 600 mg Documented By: JAMES Piperacillin Sod/Tazobactam (Sod 3.375 gm/ Sodium Chloride) 50 mls @ 100 mls/hr IV Q6H [facility] Last Infusion: 05/02/24 08:48 Dose: Infused Documented By: HALEY Norepinephrine Bitartrate (Levophed) 8 mg in 250 mls @ 0 mls/hr IVCONT .Q0M [facility]; Protocol Last Titration: 05/01/24 15:34 Dose: Infused Documented By: HALEY Magnesium Hydroxide (Milk Of Magnesia 30 Ml Oral.Susp) 30 ml PO DAILY PRN PRN Reason: Constipation Melatonin (Melatonin 3 Mg Tablet) 6 mg PO BEDTIME PRN PRN Reason: Insomnia Last Admin: 04/30/24 19:53 Dose: 6 mg Documented By: JAMES Multivitamins/Vitamin C (Multivitamin Tablet) 1 tab PO DAILY@0800 [facility] Last Admin: 05/02/24 08:22 Dose: 1 tab Documented By: POLI Nystatin (Nystatin Oral Susp 500,000 Unit/5 Ml Oral.Susp) 500,000 unit PO QID [facility]; Protocol Last Admin: 05/02/24 08:22 Dose: 500,000 unit Documented By: POLI Ondansetron HCl (Ondansetron Hcl 4 Mg/2 Ml Vial) 4 mg IVPUSH Q8H PRN PRN Reason: Nausea and Vomiting Prednisone (Prednisone 20 Mg Tablet) 40 mg PO DAILY [facility] Last Admin: 05/02/24 08:22 Dose: 40 mg Documented By: POLI Sodium Biphosphate/Sodium Phosphate (Sodium Phosphate,[place]-Dibasic 133 Ml Enema) 118 ml CA DAILY PRN PRN Reason: Constipation Sodium Chloride (0.9 % Sodium Chloride Flush 3 Ml Syringe) 3 ml IVFLUSH QSHIFT [facility] Last Admin: 05/02/24 08:17 Dose: 3 ml Documented By: POLI Labs 05/02/24 08:48 05/02/24 03:59 Labs: Laboratory Results - last 24 hr 05/01/24 05/01/24 05/01/24 04:45 16:19 21:56 MCV 62.9 L MCH 18.5 L MCHC 29.4 L RDW 32.0 H Plt Count 289 MPV TNP Immature Gran % (Auto) Neut % (Auto) Lymph % (Auto) [place] % (Auto) Eos % (Auto) Baso % (Auto) Lymph # (Auto) [place] # (Auto) Eos # (Auto) Baso # (Auto) Abs Immat Gran (auto) Absolute Neuts (auto) Absolute Nucleated RBC 0.140 H Nucleated RBC % (auto) 0.6 H Smear Tech's Comments PT 19.6 H D 19.9 H INR 1.7 H 1.7 H APTT Anion Gap Estim Creat Clear Calc Estimated GFR Random Glucose Calcium Total Bilirubin AST ALT Alkaline Phosphatase B-Natriuretic Peptide Total Protein Albumin Hold Yellow Top See Note Blood Type A Positive Antibody Screen NEGATIVE Crossmatch See Detail 05/02/24 03:59 MCV 65.3 L MCH 20.6 L MCHC 31.5 RDW 32.5 H Plt Count 229 MPV Immature Gran % (Auto) 3.2 H Neut % (Auto) 88.8 H Lymph % (Auto) 1.1 L [place] % (Auto) 6.2 Eos % (Auto) 0.6 Baso % (Auto) 0.1 Lymph # (Auto) 0.2 L [place] # (Auto) 1.3 H Eos # (Auto) 0.1 Baso # (Auto) 0.0 Abs Immat Gran (auto) 0.67 H Absolute Neuts (auto) 18.7 H Absolute Nucleated RBC 0.200 H Nucleated RBC % (auto) 0.9 H Smear Tech's Comments VERIFIED PT 18.5 H INR 1.6 H APTT 38.4 H Anion Gap 12 Estim Creat Clear Calc 49.7 Estimated GFR > 60 Random Glucose 110 Calcium 8.5 D Total Bilirubin 0.5 AST 20 ALT 20 Alkaline Phosphatase 58 B-Natriuretic Peptide 381 H Total Protein 6.0 L Albumin 3.6 Hold Yellow Top Blood Type Antibody Screen Crossmatch Microbiology Microbiology Results: Microbiology 04/30/24 15:35 Blood Culture - Preliminary Blood - Venous No growth after 24 hours. 04/30/24 15:35 Blood Culture - Preliminary Blood - Venous No growth after 24 hours. Procedures Date of Service Date of Service: 05/02/24 Progress Note: A&P Assessment and plan (1) Hematoma: Status: Acute Assessment and Plan: right arm hematoma stable - cont with management of coagulopathy and consider light venice bandage of arm from wrist to upper arm to decrease swelling of hematoma if pt can tolerate it. Time Spent With Patient Time: Total time managing care of this patient today ____ minutes. Quality Stroke Does the patient have a stroke diagnosis?: No VTE Prior VTE?: No VTE Risk Level:: Medical - moderate - high VTE Device Contraindication: Treatment Not Indicated VTE Drug Contraindication: N/A - Med Ordered
[2024-05-02 16:24] LABS: Hematocrit 25.6 % (42.0-52.0); Mean Corpuscular HGB Conc 31.3 g/dl (31.0-36.0); Mean Corpuscular Hemoglobin 21.5 pg (27.0-33.0); Mean Corpuscular Volume 68.8 fL (80.0-98.0); NRBC Pct Auto 0.5 /100WBC (0.0-0.2); Platelet Count 195 X10*3/uL (160-400); Red Blood Count 3.72 X10*6/uL (4.60-5.80); Red Cell Distribution Width 33.5 % (11.0-16.0); White Blood Count 22.9 X10*3/uL (4.8-10.8)
[2024-05-02 16:27] LABS: PLT ABN DIST 1
--- NOTE | 2024-05-02 19:09 | P.CONGS_ITS ---
History of Present Illness Consult details Consult date: 05/01/24 Requesting physician: Orlin Sam Narrative: The patient is an 88-year-old male who is being treated for bilateral pneumonia and has AFib was anticoagulated being treated with antibiotics for acute respiratory failure and developed a moderate hematoma in his right arm. He has also been having bleeding from the central line that was placed. He has received multiple blood products to reverse the apixaban that he has on. He complains of pain in the right upper arm but denies any numbness and tingling in the hand. Review of Systems 2 Review of Systems: Yes all other systems are reviewed and are negative PMFSH Past Medical History Medical History COPD (chronic obstructive pulmonary disease) Leukocytosis Polycythemia Fracture High cholesterol HTN (hypertension) Heart attack Family History Family History Daughter Aortic aneurysm Surgical History Surgical History S/P angiogram of extremity Hx of rotator cuff surgery H/O arthroscopy of shoulder Social History Social History Household Members: Family Housing: House Do you presently have visiting nurse or other home services: No Patient Tobacco Use Status: Current someday Tobacco user Tobacco use type: Cigarette Cigarette Packs Per Day: 1 Cigarettes Per Day: 20.0 Second Hand Smoke Exposure: No service: No Meds Allergies Allergy/AdvReac Type Severity Reaction Status Date / Time No Known Allergies Allergy Verified 04/28/24 08:50 [No Known Allergies*] Active Medications: Current Medications Acetaminophen (Acetaminophen 325 Mg Tablet) 650 mg PO Q6H PRN PRN Reason: Pain, Mild 1-3,fever,headache Last Admin: 04/30/24 20:09 Dose: 650 mg Albuterol Sulfate (Albuterol Sulfate (0.083%) 2.5 Mg/3 Ml Vial.Neb) 2.5 mg INHALE TID PRN PRN Reason: Shortness Of Breath Or Wheezing Albuterol Sulfate (Albuterol Sulfate 90 Mcg 8 Gm Inhaler) 1 puff INHALE QID PRN PRN Reason: asthma Albuterol/Ipratropium (Albuterol/Iprat 2.5/0.5mg 3 Ml Ampul.Neb) 3 ml INHALE RQ4H WHILE AWAKE [facility] Last Admin: 05/02/24 16:07 Dose: 3 ml Amiodarone HCl (Amiodarone Hcl 200 Mg Tablet) 200 mg PO DAILY@0800 [facility] Last Admin: 05/02/24 10:43 Dose: 200 mg Apixaban (Apixaban 5 Mg Tablet) 5 mg PO BID [facility] Last Admin: 05/01/24 09:34 Dose: Not Given Aspirin (Aspirin 81 Mg Tab.Chew) 81 mg PO DAILY@0800 [facility] Last Admin: 05/01/24 09:34 Dose: Not Given Atorvastatin Calcium (Atorvastatin Calcium 20 Mg Tablet) 20 mg PO DAILY@1999 [facility] Last Admin: 05/01/24 20:15 Dose: 20 mg Bisacodyl (Bisacodyl 10 Mg Supp.Rect) 10 mg [place] DAILY PRN PRN Reason: Constipation Calcium Carbonate (Calcium Carbonate 750 Mg Tab.Chew) 750 mg PO Q4H PRN PRN Reason: Heartburn Cyanocobalamin (Cyanocobalamin (Vitamin B-12) 1,000 Mcg Tablet) 1,000 mcg PO DAILY@0800 [facility] Last Admin: 05/02/24 08:22 Dose: 1,000 mcg Fluticasone/Umeclidinium/Vilanterol (Fluticasone/Umeclidinium/Vilanterol 200/62.5/25 Blst.W.Dev) 1 puff INHALE RDAILY@0800 [facility] Last Admin: 05/02/24 08:05 Dose: 1 puff Guaifenesin (Guaifenesin La 600 Mg Tab.Er.12h) 600 mg PO BID PRN PRN Reason: Cough Last Admin: 05/01/24 22:26 Dose: 600 mg Piperacillin Sod/Tazobactam (Sod 3.375 gm/ Sodium Chloride) 50 mls @ 100 mls/hr IV Q6H [facility] Last Infusion: 05/02/24 16:05 Dose: Infused Norepinephrine Bitartrate (Levophed) 8 mg in 250 mls @ 0 mls/hr IVCONT .Q0M [facility]; Protocol Last Titration: 05/01/24 15:34 Dose: Infused Magnesium Hydroxide (Milk Of Magnesia 30 Ml Oral.Susp) 30 ml PO DAILY PRN PRN Reason: Constipation Melatonin (Melatonin 3 Mg Tablet) 6 mg PO BEDTIME PRN PRN Reason: Insomnia Last Admin: 04/30/24 19:53 Dose: 6 mg Multivitamins/Vitamin C (Multivitamin Tablet) 1 tab PO DAILY@0800 [facility] Last Admin: 05/02/24 08:22 Dose: 1 tab Nystatin (Nystatin Oral Susp 500,000 Unit/5 Ml Oral.Susp) 500,000 unit PO QID [facility]; Protocol Last Admin: 05/02/24 18:00 Dose: 500,000 unit Ondansetron HCl (Ondansetron Hcl 4 Mg/2 Ml Vial) 4 mg IVPUSH Q8H PRN PRN Reason: Nausea and Vomiting Prednisone (Prednisone 20 Mg Tablet) 40 mg PO DAILY [facility] Last Admin: 05/02/24 08:22 Dose: 40 mg Sodium Biphosphate/Sodium Phosphate (Sodium Phosphate,[place]-Dibasic 133 Ml Enema) 118 ml [place] DAILY PRN PRN Reason: Constipation Sodium Chloride (0.9 % Sodium Chloride Flush 3 Ml Syringe) 3 ml IVFLUSH QSHIFT [facility] Last Admin: 05/02/24 16:00 Dose: 3 ml Home Medications ?Medication ?Instructions ?Recorded ?Confirmed ?Last Taken ?Type atorvastatin 20 mg tablet 20 mg PO DAILY@199902/22/20 04/28/24 02/13/24 09:00 History albuterol sulfate 2.5 mg/3 mL 2.5 mg inhalation TID PRN 02/13/24 04/28/24 02/13/24 09:00 History (0.083 %) solution for nebulization Shortness Of Breath Or Wheezing fluticasone fur. 200 mcg-umeclid 1 ea inhalation DAILY@79902/13/24 04/28/24 02/13/24 09:00 History 62.5 mcg-vilant 25 mcg inhalat.powder (Trelegy Ellipta) metoprolol succinate 50 mg 50 mg PO DAILY@79902/13/24 04/28/24 02/13/24 09:00 History tablet,extended release 24 hr yqxtaxjzqbhn-jdzzzrky-rsxwct tablet 1 tab PO DAILY@79902/13/24 04/28/24 02/13/24 09:00 History aspirin 81 mg chewable tablet 81 mg PO DAILY@79903/30/24 04/28/24 Unknown History albuterol sulfate 90 mcg/actuation 1 puff inhalation QID PRN asthma 04/24/24 04/28/24 Unknown History aerosol inhaler cyanocobalamin (vitamin B-12) 1,000 mcg PO DAILY@0800 04/24/24 04/28/24 Unknown History 1,000 mcg tablet acetaminophen 325 mg tablet 650 mg PO Q6H PRN pain or fever 04/28/24 04/28/24 Unknown History amiodarone 200 mg tablet 200 mg PO DAILY@0800 04/28/24 04/28/24 Unknown History bisacodyl 10 mg rectal suppository 10 mg [place] DAILY PRN Constipation 04/28/24 04/28/24 Unknown History furosemide 20 mg tablet 20 mg PO DAILY@0800 04/28/24 04/28/24 Unknown History magnesium hydroxide 400 mg/5 mL 30 ml PO DAILY PRN Constipation 04/28/24 04/28/24 Unknown History oral suspension (Milk of Magnesia) prednisone 20 mg tablet 20 mg PO DAILY@0800 04/28/24 04/28/24 Unknown History sodium phosphates 19 gram-7 118 ml [place] DAILY PRN Constipation 04/28/24 04/28/24 Unknown History gram/118 mL enema (Fleet Enema) Physical Exam 2 Vital Signs: Vital Signs: Last Vital Signs Temp 98.6 F 05/02/24 08:14 Pulse 73 05/02/24 19:00 Resp 25 H 05/02/24 19:00 BP 119/61 05/02/24 19:00 Pulse Ox 100 05/02/24 19:00 O2 Del Method Nasal Cannula 05/02/24 19:00 O2 Flow Rate 2 05/02/24 19:00 Oxygen Flow Rate 6 04/28/24 08:46 BMI result Body Mass Index 26.0 Skin: Other: Right upper extremity from the elbow to the axillary area especially on the medial aspect has a large hematoma and skin color changing consistent of bleeding in the subcutaneous and muscular tissue. Patient has a palpable radial artery pulse in his able to move his hand and arm fairly. The arm in the upper aspect is more sore with the hematoma tissue Results Labs 05/02/24 15:41 05/02/24 03:59 Labs: Abnormal lab results 05/01/24 05/01/24 05/01/24 Range/Units 04:45 21:56 22:00 WBC (4.8-10.8) X10*3/uL RBC (4.60-5.80) X10*6/uL Hgb 7.8 L (14.0-18.0) g/dl Hct 25.2 L (42.0-52.0) % MCV (80.0-98.0) fL MCH (27.0-33.0) pg RDW (11.0-16.0) % Immature Gran % (Auto) (0.0-0.4) % Neut % (Auto) (45-73) % Lymph % (Auto) (20-40) % Lymph # (Auto) (1.2-4.9) X10*3/uL [place] # (Auto) (0.1-1.2) X10*3/uL Abs Immat Gran (auto) (0.00-0.03) X10*3/uL Absolute Neuts (auto) (2.0-8.3) x10*3/uL Absolute Nucleated RBC (0.0-0.012) X10*3/uL Nucleated RBC % (auto) (0.0-0.2) /100WBC PT 19.9 H (10.9-12.4) SEC INR 1.7 H (0.9-1.1) APTT (26.0-36.8) SEC Sodium (135-145) mmol/L Potassium (3.3-5.1) mmol/L Carbon Dioxide (22-29) mmol/L B-Natriuretic Peptide (<100) pg/mL Total Protein (6.5-8.0) g/dL Crossmatch See Detail 05/02/24 05/02/24 05/02/24 Range/Units 03:59 08:48 15:41 WBC 21.1 H 22.9 H (4.8-10.8) X10*3/uL RBC 3.26 L 3.72 L (4.60-5.80) X10*6/uL Hgb 6.7 L* 8.3 L D 8.0 L (14.0-18.0) g/dl Hct 21.3 L 26.1 L D 25.6 L (42.0-52.0) % MCV 65.3 L 68.8 L (80.0-98.0) fL MCH 20.6 L 21.5 L (27.0-33.0) pg RDW 32.5 H 33.5 H (11.0-16.0) % Immature Gran % (Auto) 3.2 H (0.0-0.4) % Neut % (Auto) 88.8 H (45-73) % Lymph % (Auto) 1.1 L (20-40) % Lymph # (Auto) 0.2 L (1.2-4.9) X10*3/uL [place] # (Auto) 1.3 H (0.1-1.2) X10*3/uL Abs Immat Gran (auto) 0.67 H (0.00-0.03) X10*3/uL Absolute Neuts (auto) 18.7 H (2.0-8.3) x10*3/uL Absolute Nucleated RBC 0.200 H 0.110 H (0.0-0.012) X10*3/uL Nucleated RBC % (auto) 0.9 H 0.5 H (0.0-0.2) /100WBC PT 18.5 H (10.9-12.4) SEC INR 1.6 H (0.9-1.1) APTT 38.4 H (26.0-36.8) SEC Sodium 148 H (135-145) mmol/L Potassium 3.2 L (3.3-5.1) mmol/L Carbon Dioxide 32 H (22-29) mmol/L B-Natriuretic Peptide 381 H (<100) pg/mL Total Protein 6.0 L (6.5-8.0) g/dL Crossmatch Short CBC 05/01/24 05/02/24 05/02/24 Range/Units 22:00 03:59 08:48 WBC 21.1 H (4.8-10.8) X10*3/uL Hgb 7.8 L 6.7 L* 8.3 L D (14.0-18.0) g/dl Hct 25.2 L 21.3 L 26.1 L D (42.0-52.0) % Plt Count 229 (160-400) X10*3/uL 05/02/24 Range/Units 15:41 WBC 22.9 H (4.8-10.8) X10*3/uL Hgb 8.0 L (14.0-18.0) g/dl Hct 25.6 L (42.0-52.0) % Plt Count 195 (160-400) X10*3/uL BMP 05/02/24 03:59 Sodium 148 H Potassium 3.2 L Chloride 107 Carbon Dioxide 32 H BUN 15 Creatinine 0.96 Calcium 8.5 D Liver Function 05/02/24 Range/Units 03:59 Total Bilirubin 0.5 (0.0-1.0) mg/dL AST 20 (5-37) U/L ALT 20 (0-40) U/L Alkaline Phosphatase 58 (39-117) U/L Albumin 3.6 (3.5-5.0) g/dL All other labs normal. Assessment and Plan (1) Hematoma: Status: Acute Plan Right upper arm hematoma secondary to the anticoagulation status. Plan to continue with products to improve the coagulopathy and then just elevate the arm and compresses for comfort. If the patient can tolerate it may consider lightly wrapping and Richie bandage from the wrist up to the axillary area. There is no evidence of compartment syndrome here so no need for any surgical intervention Procedures Date of Service Date of Service: 05/02/24
--- NOTE | 2024-05-02 19:45 | PC.NURSE ---
N-patient alert and oriented x4, denied pain or discomfort at rest. ? discomfort to right arm with movement.? CV- right neck wound continues oozing blood all shift, dressing changed multiple times this shift. One unit of RBC?s completed this shift Pulm- updrafts given as order, wheezing continues, fine crackles to bases, O2 sat >90 with good pleth.?? GI- small bm noted, using bedpan small soft? light brown stool noted, tolerating diet well - external purewick in place, draining clear yellow urine.?
[2024-05-02] MEDS: Atorvastatin Calcium 20 MG TABLET PO (20:54)
[2024-05-02 22:22] LABS: Hematocrit 24.2 % (42.0-52.0); Hemoglobin 7.7 g/dl (14.0-18.0)
[2024-05-03] VITALS (22 sets, daily range): BP systolic 110–153; BP diastolic 56–76; PULSE 59–79; RESP 18–28; TEMP 36.1–36.7; O2SAT 91–99; BMI 26.2
[2024-05-03] MEDS: Piperacillin Sodium/Tazobactam 3.375 GM in 0.9 % Sodium Chloride 50 ML IV ×2 (01:37→09:00)
--- NOTE | 2024-05-03 04:19 | PC.NURSE ---
CARE ASSUMED 7PM..ALERT..ORIENTED X3..OCASSIONAL VAGUE RESPONSES...O2 4 L/M CANNULA..DENIES SOB...NSR BORDERLINE 1ST-DEGREE AV-BLOCK..BP STABLE...RIGHT NECK EX-TLC CONTINUES TO BLEED PER SHIFT REPORT...DRESSING CHANGED X4 OVERNIGHT...SURGICEL WITH PRESSURE DRESSING TO SITE...RIGHT UPPER ARM SWOLLEN AND ECCHYMOTIC PER REPORT...(+) RADIAL RIGHT PULSE EASILY AUDIBLE WITH DOPPLER...RIGHT UPPER ARM PUNCTURE SITE OOZING BLOOD..PRESSURE DRESSING TO SITE..RIGHT UPPER ARM CIRCUMFRANCE AT MARKED LINE = 37CM X2 MEASUREMENT...PURWIK EXTERNAL CATHETER YELLOW URINE...SMALL LOOSE BROWN BM ON BEDPAN..NSR BORDERLINE 1ST-DEGREE AV-BLOCK..DENIES DISCOMFORT
[2024-05-03 05:03] LABS: Basophils Percent Auto 0.2 % (0-2); Eosinophils Absolute Auto 0.1 X10*3/uL (0.0-0.4); Eosinophils Percent Auto 0.6 % (0-4); Hematocrit 23.3 % (42.0-52.0); Hemoglobin 7.3 g/dl (14.0-18.0); Imm Gran Abs Auto 0.38 X10*3/uL (0.00-0.03); Imm Gran Pct Auto 1.6 % (0.0-0.4); Lymphocytes Absolute Auto 0.4 X10*3/uL (1.2-4.9); Lymphocytes Percent Auto 1.7 % (20-40); MANUAL DIFF FLAG SCAN; Mean Corpuscular HGB Conc 31.3 g/dl (31.0-36.0); Mean Corpuscular Hemoglobin 21.6 pg (27.0-33.0); Mean Corpuscular Volume 68.9 fL (80.0-98.0); Monocytes Absolute Auto 1.5 X10*3/uL (0.1-1.2); Monocytes Percent Auto 6.3 % (2-11); NRBC Pct Auto 0.5 /100WBC (0.0-0.2); Neutrophils Absolute Auto 21.3 x10*3/uL (2.0-8.3); Neutrophils Percent Auto 89.6 % (45-73); PLT CLUMP 1; Red Blood Count 3.38 X10*6/uL (4.60-5.80); Red Cell Distribution Width 34.5 % (11.0-16.0); SCAN SMEAR FLAG 1
[2024-05-03 05:20] LABS: Platelet Count 207 X10*3/uL (160-400); White Blood Count 23.7 X10*3/uL (4.8-10.8)
[2024-05-03 05:21] LABS: Alanine Aminotransferase 28 U/L (0-40); Albumin Level 3.3 g/dL (3.5-5.0); Alkaline Phosphatase 58 U/L (39-117); Anion Gap 14 (12-20); Aspartate Amino Transferase 22 U/L (5-37); Bilirubin Total 0.6 mg/dL (0.0-1.0); Blood Urea Nitrogen 15 mg/dL (9-16); Calcium 8.3 mg/dL (8.4-10.2); Carbon Dioxide 34 mmol/L (22-29); Chloride 104 mmol/L (96-108); Creatinine Clr Calc Pharmacy 49.2; Estimated Glomerular Filt Rate > 60; Glucose Random 113 mg/dL (60-115); Magnesium 1.9 mg/dL (1.6-2.6); Phosphorus 2.8 mg/dL (2.7-4.5); Potassium 3.5 mmol/L (3.3-5.1); SLIDE REVIEW VERIFIED; Sodium 148 mmol/L (135-145); Total Protein 5.7 g/dL (6.5-8.0)
[2024-05-03] MEDS: predniSONE 20 MG TABLET 40 MG PO (08:58)
[2024-05-03] MEDS: Amiodarone HCL 200 MG TABLET PO (08:58)
[2024-05-03] MEDS: 0.9 % Sodium Chloride Flush 3 ML SYRINGE IVFLUSH ×3 (08:59→20:31)
[2024-05-03] MEDS: Nystatin Oral Susp 500,000 UNIT/5 ML ORAL.SUSP 500000 UNIT PO ×4 (09:00→20:28)
[2024-05-03] MEDS: Calcium Gluconate/NaCl,Iso-Osm 1 GM/50 ML PLAST..BAG IV (09:00)
--- NOTE | 2024-05-03 09:24 | PM.CCPN ---
Subjective Subjective Date of Service: 05/03/24 Critical Care Time (minutes): 0 Physical Exam Vital Signs: Vital Signs: Last Vital Signs Temp 97.5 F 05/03/24 08:00 Pulse 60 05/03/24 08:00 Resp 25 H 05/03/24 08:00 BP 143/65 H 05/03/24 08:00 Pulse Ox 95 05/03/24 08:00 O2 Del Method Nasal Cannula 05/03/24 08:00 O2 Flow Rate 2 05/03/24 08:00 Oxygen Flow Rate 6 04/28/24 08:46 BMI result Body Mass Index 26.2 Objective Data Labs 05/03/24 04:40 05/03/24 04:40 Labs: Laboratory Results - last 24 hr 05/01/24 05/02/24 05/02/24 04:45 15:41 22:12 WBC 22.9 H RBC 3.72 L Hgb 8.0 L 7.7 L Hct 25.6 L 24.2 L MCV 68.8 L MCH 21.5 L MCHC 31.3 RDW 33.5 H Plt Count 195 MPV TNP Immature Gran % (Auto) Neut % (Auto) Lymph % (Auto) [place] % (Auto) Eos % (Auto) Baso % (Auto) Lymph # (Auto) [place] # (Auto) Eos # (Auto) Baso # (Auto) Abs Immat Gran (auto) Absolute Neuts (auto) Absolute Nucleated RBC 0.110 H Nucleated RBC % (auto) 0.5 H Smear Tech's Comments Sodium Potassium Chloride Carbon Dioxide Anion Gap BUN Creatinine Estim Creat Clear Calc Estimated GFR Random Glucose Calcium Phosphorus Magnesium Total Bilirubin AST ALT Alkaline Phosphatase Total Protein Albumin Crossmatch See Detail 05/03/24 04:40 WBC 23.7 H RBC 3.38 L Hgb 7.3 L Hct 23.3 L MCV 68.9 L MCH 21.6 L MCHC 31.3 RDW 34.5 H Plt Count 207 MPV Not Reportable Immature Gran % (Auto) 1.6 H Neut % (Auto) 89.6 H Lymph % (Auto) 1.7 L [place] % (Auto) 6.3 Eos % (Auto) 0.6 Baso % (Auto) 0.2 Lymph # (Auto) 0.4 L [place] # (Auto) 1.5 H Eos # (Auto) 0.1 Baso # (Auto) 0.0 Abs Immat Gran (auto) 0.38 H Absolute Neuts (auto) 21.3 H Absolute Nucleated RBC 0.110 H Nucleated RBC % (auto) 0.5 H Smear Tech's Comments VERIFIED Sodium 148 H Potassium 3.5 Chloride 104 Carbon Dioxide 34 H Anion Gap 14 BUN 15 Creatinine 0.97 Estim Creat Clear Calc 49.2 Estimated GFR > 60 Random Glucose 113 Calcium 8.3 L Phosphorus 2.8 Magnesium 1.9 Total Bilirubin 0.6 AST 22 ALT 28 Alkaline Phosphatase 58 Total Protein 5.7 L Albumin 3.3 L Crossmatch Microbiology Microbiology Results: Microbiology 04/30/24 15:35 Blood - Venous Blood Culture - Preliminary No growth after 48 hours. 04/30/24 15:35 Blood - Venous Blood Culture - Preliminary No growth after 48 hours. 04/28/24 10:36 Blood - Venous Blood Culture - Preliminary No growth after 48 hours. 04/28/24 10:36 Blood - Venous Blood Culture - Preliminary No growth after 48 hours. 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, subclavian stenosis s/p stenting, hypertension, CAD, paroxysmal atrial fibrillation on apixaban, and COPD on 3L NC presenting initially to emergency department on 04/28 w/ encephalopathy, found to be w/ acute on chronic hypoxia, CT C angiogram not suggestive of PE, though demonsrated bilateral pleural effusions, admitted medicine; on 04/30, patient hypotensive, prompting ICU admission; ICU course c/b R UE hematoma necessitating massive transfusion N: no acute issues CV: hypotension, improved; paroxysmal atrial fibrillation, previously on apixaban, though holding in setting of neck hematoma; amiodarone R: acute on chronic hypoxia, likely d/t pneumonia, improved; COPD GI: cardiac diet : no acute issues; to closely monitor renal indices, electrolytes H: acute blood loss anemia d/t R UE hematoma, last transfusion 05/02, improving ID: empiric zosyn in setting of pneumonia E: to monitor hypo-/hyper-glycemia P: no acute issues Quality Stroke Does the patient have a stroke diagnosis?: No VTE Prior VTE?: No VTE Risk Level:: Medical - moderate - high VTE Device Contraindication: N/A - Device Ordered VTE Drug Contraindication: Treatment Not Tolerated
[2024-05-03 11:22] LABS: Hematocrit 26.9 % (42.0-52.0); Hemoglobin 8.1 g/dl (14.0-18.0)
[2024-05-03] MEDS: Albuterol/Iprat 2.5/0.5MG 3 ML AMPUL.NEB INHALE ×3 (11:38→21:10)
[2024-05-03 12:08] LABS: Immature Retic Fraction 11.3 % (2.3-13.4); Retic HGB Equivalent 15.9 pg (30.0-35.0); Reticulocyte Percent 1.6 % (0.5-1.8); Reticulocytes Absolute 0.063 X10*6/uL (0.026-0.095)
[2024-05-03 12:26] LABS: Lactate Dehydrogenase 286 U/L (118-273)
[2024-05-03 12:28] LABS: Haptoglobin 75 mg/dL (40-268)
--- NOTE | 2024-05-03 13:47 | MHC.CM.PN ---
Pt making clinical gains in ICU: from [facility]: clinicals remitted for pt return when medically stable. CM to follow
[2024-05-03 14:24] LABS: OBS Int Ctl Valid YES; OBS1 POSITIVE (NEGATIVE)
--- NOTE | 2024-05-03 17:44 | PM.HEMONCCN ---
Subjective - Subjective Chief complaint: polycythemia vera Patient: known to practice within the last 3 years Consult date: 05/03/24 Primary Care Provider: Unknown Physician Sba Underwriter Utilized?: No - Chinese Speaking HPI - Consult Narrative Reason for consult: anemia Narrative: Wyatt Shelton is a 88 year old male well [facility]. He presented with macrocytic anemia found to be due to B12 deficiency but not perniciousanemia. This was corrected. 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 He has been treated with episodic therapeutic phlebotomy. He was last seen in my office in February of 2023 and has missed 6 scheduled office visits.He presents now with hypotension, COPD, pneumonia and severe anemia likely due to bleeding into the left arm. He has been given 3 units of prbcs and 6 ffp. He is stable now. Review of Systems - Constitutional Reports anorexia - Eyes Reports irritation - ENT Reports system reviewed and no additional complaints, except as documented - Cardiovascular Reports shortness of breath with activity - Gastrointestinal Reports abdominal pain - Genitourinary Genitourinary: Reports urinary incontinence - Musculoskeletal Reports muscle weakness - Neurologic Denies hearing normal, Denies behavioral changes [facility] Medical History: Medical History (Last Reviewed 04/28/24 @ 17:12 by Pedrito Johnson MD) COPD (chronic obstructive pulmonary disease) Fracture Heart attack High cholesterol HTN (hypertension) Leukocytosis Polycythemia Family History: Family History (Last Reviewed 04/28/24 @ 17:12 by Pedrito Johnson MD) Daughter Aortic aneurysm Surgical History: Surgical History (Last Reviewed 04/28/24 @ 17:12 by Pedrito Johnson MD) H/O arthroscopy of shoulder Hx of rotator cuff surgery S/P angiogram of extremity Social History: Social History (Last Reviewed 04/28/24 @ 17:12 by Pedrito Johnson MD) Living Situation History: Household Members: Family Housing: House Do you presently have visiting nurse or other home services: No Tobacco History: Patient Tobacco Use Status: Current someday Tobacco Tobacco use type: Cigarette Cigarette Packs Per Day: 1 Cigarettes Per Day: 20.0 Second Hand Smoke Exposure: No Occupation Assessmet: service: No Home Medications and Allergies Current Medications: Current Medications Acetaminophen (Acetaminophen 325 Mg Tablet) 650 mg PO Q6H PRN PRN Reason: Pain, Mild 1-3,fever,headache Last Admin: 04/30/24 20:09 Dose: 650 mg Albuterol Sulfate (Albuterol Sulfate (0.083%) 2.5 Mg/3 Ml Vial.Neb) 2.5 mg INHALE TID PRN PRN Reason: Shortness Of Breath Or Wheezing Albuterol Sulfate (Albuterol Sulfate 90 Mcg 8 Gm Inhaler) 1 puff INHALE QID PRN PRN Reason: asthma Albuterol/Ipratropium (Albuterol/Iprat 2.5/0.5mg 3 Ml Ampul.Neb) 3 ml INHALE RQ4H WHILE AWAKE [facility] Last Admin: 05/03/24 15:36 Dose: 3 ml Amiodarone HCl (Amiodarone Hcl 200 Mg Tablet) 200 mg PO DAILY@0800 [facility] Last Admin: 05/03/24 08:58 Dose: 200 mg Atorvastatin Calcium (Atorvastatin Calcium 20 Mg Tablet) 20 mg PO DAILY@2000 [facility] Last Admin: 05/02/24 20:54 Dose: 20 mg Fluticasone/Umeclidinium/Vilanterol (Fluticasone/Umeclidinium/Vilanterol 200/62.5/25 Blst.W.Dev) 1 puff INHALE RDAILY@0800 [facility] Last Admin: 05/03/24 08:01 Dose: Not Given Guaifenesin (Guaifenesin La 600 Mg Tab.Er.12h) 600 mg PO BID PRN PRN Reason: Cough Last Admin: 05/01/24 22:26 Dose: 600 mg Nystatin (Nystatin Oral Susp 500,000 Unit/5 Ml Oral.Susp) 500,000 unit PO QID [facility]; Protocol Last Admin: 05/03/24 17:20 Dose: 500,000 unit Ondansetron HCl (Ondansetron Hcl 4 Mg/2 Ml Vial) 4 mg IVPUSH Q8H PRN PRN Reason: Nausea and Vomiting Prednisone (Prednisone 20 Mg Tablet) 40 mg PO DAILY [facility] Last Admin: 05/03/24 08:58 Dose: 40 mg Sodium Biphosphate/Sodium Phosphate (Sodium Phosphate,[place]-Dibasic 133 Ml Enema) 118 ml [place] DAILY PRN PRN Reason: Constipation Sodium Chloride (0.9 % Sodium Chloride Flush 3 Ml Syringe) 3 ml IVFLUSH QSHIFT [facility] Last Admin: 05/03/24 14:54 Dose: 3 ml Home Medications ?Medication ?Instructions ?Recorded ?Confirmed ?Type atorvastatin 20 mg tablet 20 mg PO DAILY@199902/22/20 04/28/24 History albuterol sulfate 2.5 mg/3 mL 2.5 mg inhalation TID PRN 02/13/24 04/28/24 History (0.083 %) solution for nebulization Shortness Of Breath Or Wheezing fluticasone fur. 200 mcg-umeclid 1 ea inhalation DAILY@79902/13/24 04/28/24 History 62.5 mcg-vilant 25 mcg inhalat.powder (Trelegy Ellipta) metoprolol succinate 50 mg 50 mg PO DAILY@79902/13/24 04/28/24 History tablet,extended release 24 hr gurrzshccfgm-umojyxuf-khamwp tablet 1 tab PO DAILY@0802/13/24 04/28/24 History aspirin 81 mg chewable tablet 81 mg PO DAILY@0803/30/24 04/28/24 History albuterol sulfate 90 mcg/actuation 1 puff inhalation QID PRN asthma 04/24/24 04/28/24 History aerosol inhaler cyanocobalamin (vitamin B-12) 1,000 mcg PO DAILY@0804/24/24 04/28/24 History 1,000 mcg tablet acetaminophen 325 mg tablet 650 mg PO Q6H PRN pain or fever 04/28/24 04/28/24 History amiodarone 200 mg tablet 200 mg PO DAILY@0804/28/24 04/28/24 History bisacodyl 10 mg rectal suppository 10 mg [place] DAILY PRN Constipation 04/28/24 04/28/24 History furosemide 20 mg tablet 20 mg PO DAILY@0804/28/24 04/28/24 History magnesium hydroxide 400 mg/5 mL 30 ml PO DAILY PRN Constipation 04/28/24 04/28/24 History oral suspension (Milk of Magnesia) prednisone 20 mg tablet 20 mg PO DAILY@0804/28/24 04/28/24 History sodium phosphates 19 gram-7 118 ml [place] DAILY PRN Constipation 04/28/24 04/28/24 History gram/118 mL enema (Fleet Enema) Allergies Allergy/AdvReac Type Severity Reaction Status Date / Time No Known Allergies Allergy Verified 04/28/24 08:50 [No Known Allergies*] Physical Exam Vital signs: Vital Signs Temp 98.0 F 05/03/24 12:00 Pulse 79 05/03/24 17:00 Resp 18 05/03/24 17:00 BP 153/76 H 05/03/24 17:00 Pulse Ox 92 05/03/24 17:00 O2 Del Method Nasal Cannula 05/03/24 17:00 O2 Flow Rate 2 05/03/24 17:00 Intake & Output 05/02/24 05/03/24 05/03/24 18:59 06:59 18:59 Intake Total 450 / 850 400 / 850 280 / 280 Output Total 225 / 725 500 / 725 Balance 225 / 125 -100 / 125 280 / 280 Urine Output (Average ml/kg/hr) 0.25 0.55 0.55 Intake: Intake, Oral Amount 300 / 300 180 / 180 Intake (Blood Product) Amount 350 / 350 Red Blood Cells (E0336) Unit 350 / 350 [id number] Intake, IV Amount 100 / 200 100 / 200 100 / 100 Calcium Gluconate/NaCl,Iso-Osm 50 / 50 1 gm In 50 ml @ 50 mls/hr IV ONCE ONE Rx#:[id number] Piperacillin Sodium/Tazobactam 100 / 200 100 / 200 50 / 50 3.375 gm In 0.9 % Sodium Chloride 50 ml @ 100 mls/hr IV Q6H [facility] Rx#:[id number] Output: Output, Urine Amount (Catheter) 225 / 725 500 / 725 external catheter 225 / 725 500 / 725 Other: Number of Incontinent Voids 475 Number of Bowel Movements 1 Last Bowel Movement 05/01/24 05/03/24 Weight 75.8 kg [place] Weight in Grams 56982 Weight 75.8 kg - Constitutional Present: no acute distress - Routine HEENT Exam Head: Present: atraumatic Eye: Present: conjunctival injection ENT: Present: mucous membranes moist - Routine Neck Exam Present: supple - Routine Respiratory Exam Present: decreased breath sounds, prolonged expiratory phase - Routine Cardiovascular Exam Cardiovascular: Present: tachycardia - Routine Abdominal Exam Present: diminished bowel sounds (very swollen right arm) - Routine Neurological Exam Present: alert Hem/Onc Consult Result - Labs CBC & Chem 7: 05/03/24 11:09 05/03/24 04:40 Labs: Short CBC 05/02/24 05/03/24 05/03/24 Range/Units 22:12 04:40 11:09 WBC 23.7 H (4.8-10.8) X10*3/uL Hgb 7.7 L 7.3 L 8.1 L (14.0-18.0) g/dl Hct 24.2 L 23.3 L 26.9 L (42.0-52.0) % Plt Count 207 (160-400) X10*3/uL BMP 05/03/24 04:40 Sodium 148 H Potassium 3.5 Chloride 104 Carbon Dioxide 34 H BUN 15 Creatinine 0.97 Calcium 8.3 L Liver Function 05/03/24 Range/Units 04:40 Total Bilirubin 0.6 (0.0-1.0) mg/dL AST 22 (5-37) U/L ALT 28 (0-40) U/L Alkaline Phosphatase 58 (39-117) U/L Albumin 3.3 L (3.5-5.0) g/dL Assessment and Plan Patient Active problem list reviewed?: Yes (1) Polycythemia vera Start date: 02/14/24 Status: Acute Assessment and plan: The acute anemia is likely due to bleeding. I recommend transfusion of rbcs instead of iron to facilitate outpatient treatment. He is purposely mad iron deficient to controll the P. vera s erythrocytosis. I will follow daily. I see no evidence for hemolysis. - Time Spent With Patient Time Spent with Patient (in minutes): 30
[2024-05-03] MEDS: Atorvastatin Calcium 20 MG TABLET PO (20:28)
[2024-05-04] VITALS (12 sets, daily range): BP systolic 103–124; BP diastolic 48–68; PULSE 67–71; RESP 16–20; TEMP 36–36.8; O2SAT 90–98; BMI 26.2
[2024-05-04] MEDS: Acetaminophen 325 MG TABLET 650 MG PO (04:19)
[2024-05-04] MEDS: guaiFENesin LA 600 MG TAB.ER.12H PO (04:19)
[2024-05-04 06:44] LABS: Strep Pneumo Ag urine Not Detected (Not Detected)
[2024-05-04 06:46] LABS: Basophils Percent Auto 0.2 % (0-2); NRBC Pct Auto 0.3 /100WBC (0.0-0.2); SCAN SMEAR FLAG 1
[2024-05-04 06:48] LABS: Basophils Absolute Auto 0.1 X10*3/uL (0.0-0.2); Eosinophils Absolute Auto 0.3 X10*3/uL (0.0-0.4); Eosinophils Percent Auto 0.8 % (0-4); Hemoglobin 8.1 g/dl (14.0-18.0); Imm Gran Abs Auto 0.64 X10*3/uL (0.00-0.03); Lymphocytes Absolute Auto 0.4 X10*3/uL (1.2-4.9); Lymphocytes Percent Auto 1.3 % (20-40); MANUAL DIFF FLAG SCAN; Mean Corpuscular Hemoglobin 21.5 pg (27.0-33.0); Mean Corpuscular Volume 71.8 fL (80.0-98.0); Monocytes Absolute Auto 1.9 X10*3/uL (0.1-1.2); Monocytes Percent Auto 6.1 % (2-11); Neutrophils Absolute Auto 28.2 x10*3/uL (2.0-8.3); Neutrophils Percent Auto 89.6 % (45-73); PLT CLUMP 1; Red Blood Count 3.76 X10*6/uL (4.60-5.80); Red Cell Distribution Width 35.8 % (11.0-16.0)
[2024-05-04 07:01] LABS: Anion Gap 11 (12-20); Blood Urea Nitrogen 16 mg/dL (9-16); Calcium 8.1 mg/dL (8.4-10.2); Carbon Dioxide 33 mmol/L (22-29); Chloride 104 mmol/L (96-108); Creatinine Clr Calc Pharmacy 58.2; Estimated Glomerular Filt Rate > 60; Glucose Random 105 mg/dL (60-115); Phosphorus 3.7 mg/dL (2.7-4.5); Potassium 3.7 mmol/L (3.3-5.1); Sodium 144 mmol/L (135-145)
[2024-05-04 07:07] LABS: PLT ABN DIST 1
[2024-05-04 07:15] LABS: White Blood Count 31.5 X10*3/uL (4.8-10.8)
[2024-05-04 07:51] LABS: Platelet Count 195 X10*3/uL (160-400)
[2024-05-04 07:53] LABS: SLIDE REVIEW VERIFIED
[2024-05-04] MEDS: Fluticasone/Umeclidinium/Vilanterol 200/62.5/25 BLST.W.DEV 1 PUFF INHALE (08:00)
[2024-05-04] MEDS: Albuterol/Iprat 2.5/0.5MG 3 ML AMPUL.NEB INHALE ×4 (08:01→19:11)
[2024-05-04] MEDS: Amiodarone HCL 200 MG TABLET PO (08:08)
[2024-05-04] MEDS: 0.9 % Sodium Chloride Flush 3 ML SYRINGE IVFLUSH ×3 (08:08→20:50)
[2024-05-04] MEDS: Nystatin Oral Susp 500,000 UNIT/5 ML ORAL.SUSP 500000 UNIT PO ×4 (08:08→20:50)
[2024-05-04] MEDS: predniSONE 20 MG TABLET 40 MG PO (08:08)
--- NOTE | 2024-05-04 09:21 | P.PNIM_ITS ---
Subjective Subjective Date of Service: 05/04/24 Interval History: f/u on acute hypoxic resp failure d/t PNA, andrew effusion, hospital course complicated by hypotension, acute blood loss anemia required ICU care d/t hypotension overal better Physical Exam 2 Vital Signs: Vital Signs: Last Vital Signs Temp 96.8 F 05/04/24 07:40 Pulse 69 05/04/24 08:03 Resp 16 05/04/24 08:03 BP 105/56 L 05/04/24 07:40 Pulse Ox 96 05/04/24 07:40 O2 Del Method Room Air 05/04/24 07:40 O2 Flow Rate 4 05/04/24 04:00 Oxygen Flow Rate 6 04/28/24 08:46 BMI result Body Mass Index 26.2 Const: Other: General resting comfortably in no acute distress. Oral cavity, white patches on tongue Neck no JVD. CVS regular rate rhythm, Respiratory lungs diminished at bases, few rhonchi Gastrointestinal abdomen soft, non tender, bowel sounds audible Extremities no edema. swollen Left arm acute, chronic swelling of left leg Right upper extremity significant swelling tenderness to palpation likely due to IV infiltration Neuro non focal /thick speech Appropriate affect Objective Data Active Medications Acetaminophen (Acetaminophen 325 Mg Tablet) 650 mg PO Q6H PRN PRN Reason: Pain, Mild 1-3,fever,headache Last Admin: 05/04/24 04:19 Dose: 650 mg Documented By: WILL Albuterol Sulfate (Albuterol Sulfate (0.083%) 2.5 Mg/3 Ml Vial.Neb) 2.5 mg INHALE TID PRN PRN Reason: Shortness Of Breath Or Wheezing Albuterol Sulfate (Albuterol Sulfate 90 Mcg 8 Gm Inhaler) 1 puff INHALE QID PRN PRN Reason: asthma Albuterol/Ipratropium (Albuterol/Iprat 2.5/0.5mg 3 Ml Ampul.Neb) 3 ml INHALE RQ4H WHILE AWAKE [facility] Last Admin: 05/04/24 08:01 Dose: 3 ml Documented By: HOA Amiodarone HCl (Amiodarone Hcl 200 Mg Tablet) 200 mg PO DAILY@0800 [facility] Last Admin: 05/04/24 08:08 Dose: 200 mg Documented By: JAMES Atorvastatin Calcium (Atorvastatin Calcium 20 Mg Tablet) 20 mg PO DAILY@2000 [facility] Last Admin: 05/03/24 20:28 Dose: 20 mg Documented By: WILL Fluticasone/Umeclidinium/Vilanterol (Fluticasone/Umeclidinium/Vilanterol 200/62.5 Blst.W.Dev) 1 puff INHALE RDAILY@0800 [facility] Last Admin: 05/04/24 08:00 Dose: 1 puff Documented By: HOA Guaifenesin (Guaifenesin La 600 Mg Tab.Er.12h) 600 mg PO BID PRN PRN Reason: Cough Last Admin: 05/04/24 04:19 Dose: 600 mg Documented By: WILL Nystatin (Nystatin Oral Susp 500,000 Unit/5 Ml Oral.Susp) 500,000 unit PO QID [facility]; Protocol Last Admin: 05/04/24 08:08 Dose: 500,000 unit Documented By: JAMES Ondansetron HCl (Ondansetron Hcl 4 Mg/2 Ml Vial) 4 mg IVPUSH Q8H PRN PRN Reason: Nausea and Vomiting Prednisone (Prednisone 20 Mg Tablet) 40 mg PO DAILY [facility] Last Admin: 05/04/24 08:08 Dose: 40 mg Documented By: JAMES Sodium Biphosphate/Sodium Phosphate (Sodium Phosphate,[place]-Dibasic 133 Ml Enema) 118 ml [place] DAILY PRN PRN Reason: Constipation Sodium Chloride (0.9 % Sodium Chloride Flush 3 Ml Syringe) 3 ml IVFLUSH QSHIFT [facility] Last Admin: 05/04/24 08:08 Dose: 3 ml Documented By: JAMES Labs 05/04/24 06:18 05/04/24 06:18 Labs: Laboratory Results - last 24 hr 04/30/24 05/03/24 05/03/24 17:28 11:50 14:03 MCV MCH MCHC RDW Plt Count MPV Immature Gran % (Auto) Neut % (Auto) Lymph % (Auto) [place] % (Auto) Eos % (Auto) Baso % (Auto) Lymph # (Auto) [place] # (Auto) Eos # (Auto) Baso # (Auto) Abs Immat Gran (auto) Absolute Neuts (auto) Absolute Nucleated RBC Nucleated RBC % (auto) Smear Tech's Comments Absolute Retic 0.063 Percent Retic 1.6 Immature Retic Fraction 11.3 Retic Hgb Equivalent 15.9 L Anion Gap Estim Creat Clear Calc Estimated GFR Random Glucose Haptoglobin 75 Calcium Phosphorus Magnesium Lactate Dehydrogenase 286 H Stool Occult Blood POSITIVE Ur Strep pneumoniae Ag Not Detected 05/04/24 06:18 MCV 71.8 L MCH 21.5 L MCHC 30.0 L RDW 35.8 H Plt Count 195 MPV Not Reportable Immature Gran % (Auto) 2.0 H Neut % (Auto) 89.6 H Lymph % (Auto) 1.3 L [place] % (Auto) 6.1 Eos % (Auto) 0.8 Baso % (Auto) 0.2 Lymph # (Auto) 0.4 L [place] # (Auto) 1.9 H Eos # (Auto) 0.3 Baso # (Auto) 0.1 Abs Immat Gran (auto) 0.64 H Absolute Neuts (auto) 28.2 H Absolute Nucleated RBC 0.090 H Nucleated RBC % (auto) 0.3 H Smear Tech's Comments VERIFIED Absolute Retic Percent Retic Immature Retic Fraction Retic Hgb Equivalent Anion Gap 11 L Estim Creat Clear Calc 58.2 Estimated GFR > 60 Random Glucose 105 Haptoglobin Calcium 8.1 L Phosphorus 3.7 Magnesium 2.0 Lactate Dehydrogenase Stool Occult Blood Ur Strep pneumoniae Ag Microbiology Microbiology Results: Microbiology 04/28/24 10:36 Blood Culture - Final Blood - Venous No growth after 5 days. 04/28/24 10:36 Blood Culture - Final Blood - Venous No growth after 5 days. Assessment and Plan (1) Acute on chronic hypoxic respiratory failure: Status: Acute (2) Pleural effusion: Status: Acute (3) Asthma exacerbation in COPD: Status: Acute (4) COPD exacerbation: Status: Acute Plan Patient is a 88 Y M w/ JAK2-positive myeloproliferative disorder chronic leukocytosis, subclavian stenosis s/p stenting, hypertension, CAD, paroxysmal atrial fibrillation on apixaban, and COPD on 3L NC presenting initially to emergency department on 04/28 w/ encephalopathy, found to be w/ acute on chronic hypoxia, CT C angiogram not suggestive of PE, though demonsrated bilateral pleural effusions, admitted medicine; on 04/30, patient hypotensive, prompting ICU admission; ICU course c/b R UE hematoma necessitating massive transfusion Acute on chronic respiratory failure in the setting of bilateral pleural effusions and Pneumonia, clinically improved. He has been on Zosyn, transition to oral Augmentin, repeat CXR on 05/02 showed improved airspace diaeaase thoracentesis considered but cancelled in light of hypotension and anemia serial xrays No CHF diagnosis, Echocardiogram showed EF 60-65%, impaired relaxation filling patterns, no pericardial effusion, inferior vena cava is normal in size and collapses greater than 50% with inspiration Seen by cardiology patient does not seem to be in CHF, RV strain likely cause of elevated BNP Acute Hypotension, likely related to blood loss resolved with IvF and blood products Oral thrush nystatin swish and spit Right upper extremity swelling appear to be from hematoma eliquis on hold Acute on chronic respiratory failure in the setting of COPD exacerbation underlying pneumonia Steroid, bronchodilators Left lower extremity pain and swelling, is chronic US was negative for DVT on 03/29 and 04/24 Eliquis on hold d/t acute blood loss anemia from hematoma Paroxysmal AFib recent sustained SVT s/p cardioversion holding Eliquis d/t acute blood lossn amiodarone Hold metoprolol due to soft BP Chronic leukocytosis hx of JAK2 positive myeloproliferative disorder CAD/HLD Continue statin Full Code DVT Prophylaxis: Eliquis on hold d/t anemia, bleeding, device 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
[2024-05-04] MEDS: Amoxicillin/Potassium Clav 875 MG TABLET PO ×2 (10:49→20:50)
--- NOTE | 2024-05-04 17:55 | PM.HEMONCPN ---
Medical Summary - Medical Summary Date of Service: 05/04/24 Chief complaint: anemia Primary Care Provider: Unknown Physician Medical Summary: He has been transferred out of ICU to [facility]. His BP is stable and the hematocrit is 27%. The edema in the right arm is less and extensive purpurae are developing. He denies unconrolled ain. We should continue current therapies. Observation Assistant Utilized?: No - Citizen Of [place] Speaking Interval History Interval history: Wyatt Shelton is a 88 year [facility] He presented with macrocytic anemia found to be due to B12 deficiency but not perniciousanemia. This was corrected. 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 He has been treated with episodic therapeutic phlebotomy. He was last seen in my office in February of 2023 and has missed 6 scheduled office visits.He presents now with hypotension, COPD, pneumonia and severe anemia likely due to bleeding into the left arm. He has been given 3 units of prbcs and 6 ffp. He is stable now. Review of Systems - Constitutional Reports anorexia - Eyes Reports irritation - ENT Reports sore throat - Cardiovascular Reports fast heart rate, Reports lightheadedness - Respiratory Reports dyspnea - Gastrointestinal Reports abdominal pain - Genitourinary Genitourinary: Reports urinary urgency - Musculoskeletal Reports decreased muscle mass, Reports other - Neurologic Denies hearing normal, Denies behavioral changes [facility] Medical History: Medical History (Last Reviewed 05/04/24 @ 10:25 by Zoya Goyal, PT) COPD (chronic obstructive pulmonary disease) Fracture Heart attack High cholesterol HTN (hypertension) Leukocytosis Polycythemia Family History: Family History (Last Reviewed 04/28/24 @ 17:12 by Pedrito Johnson MD) Daughter Aortic aneurysm Surgical History: Surgical History (Last Reviewed 05/04/24 @ 10:25 by Zoya Goyal, PT) H/O arthroscopy of shoulder Hx of rotator cuff surgery S/P angiogram of extremity Social History: Social History (Last Reviewed 04/28/24 @ 17:12 by Pedrito Johnson MD) Living Situation History: Household Members: Family Housing: House Do you presently have visiting nurse or other home services: No Tobacco History: Patient Tobacco Use Status: Current someday Tobacco Tobacco use type: Cigarette Cigarette Packs Per Day: 1 Second Hand Smoke Exposure: No Occupation Assessmet: service: No Home Medications and Allergies Current Medications: Current Medications Acetaminophen (Acetaminophen 325 Mg Tablet) 650 mg PO Q6H PRN PRN Reason: Pain, Mild 1-3,fever,headache Last Admin: 05/04/24 04:19 Dose: 650 mg Albuterol Sulfate (Albuterol Sulfate (0.083%) 2.5 Mg/3 Ml Vial.Neb) 2.5 mg INHALE TID PRN PRN Reason: Shortness Of Breath Or Wheezing Albuterol Sulfate (Albuterol Sulfate 90 Mcg 8 Gm Inhaler) 1 puff INHALE QID PRN PRN Reason: asthma Albuterol/Ipratropium (Albuterol/Iprat 2.5/0.5mg 3 Ml Ampul.Neb) 3 ml INHALE RQ4H WHILE AWAKE [facility] Last Admin: 05/04/24 15:29 Dose: 3 ml Amiodarone HCl (Amiodarone Hcl 200 Mg Tablet) 200 mg PO DAILY@0800 [facility] Last Admin: 05/04/24 08:08 Dose: 200 mg Amoxicillin/Clavulanate Potassium (Amoxicillin/Potassium Clav 875 Mg Tablet) 875 mg PO Q12H [facility] Last Admin: 05/04/24 10:49 Dose: 875 mg Atorvastatin Calcium (Atorvastatin Calcium 20 Mg Tablet) 20 mg PO DAILY@2000 [facility] Last Admin: 05/03/24 20:28 Dose: 20 mg Fluticasone/Umeclidinium/Vilanterol (Fluticasone/Umeclidinium/Vilanterol 200/62.5/25 Blst.W.Dev) 1 puff INHALE RDAILY@0800 [facility] Last Admin: 05/04/24 08:00 Dose: 1 puff Guaifenesin (Guaifenesin La 600 Mg Tab.Er.12h) 600 mg PO BID PRN PRN Reason: Cough Last Admin: 05/04/24 04:19 Dose: 600 mg Nystatin (Nystatin Oral Susp 500,000 Unit/5 Ml Oral.Susp) 500,000 unit PO QID [facility]; Protocol Last Admin: 05/04/24 15:55 Dose: 500,000 unit Ondansetron HCl (Ondansetron Hcl 4 Mg/2 Ml Vial) 4 mg IVPUSH Q8H PRN PRN Reason: Nausea and Vomiting Prednisone (Prednisone 20 Mg Tablet) 40 mg PO DAILY [facility] Last Admin: 05/04/24 08:08 Dose: 40 mg Sodium Biphosphate/Sodium Phosphate (Sodium Phosphate,[place]-Dibasic 133 Ml Enema) 118 ml [place] DAILY PRN PRN Reason: Constipation Sodium Chloride (0.9 % Sodium Chloride Flush 3 Ml Syringe) 3 ml IVFLUSH QSHIFT [facility] Last Admin: 05/04/24 15:57 Dose: 3 ml Home Medications ?Medication ?Instructions ?Recorded ?Confirmed ?Type atorvastatin 20 mg tablet 20 mg PO DAILY@199902/22/20 04/28/24 History albuterol sulfate 2.5 mg/3 mL 2.5 mg inhalation TID PRN 02/13/24 04/28/24 History (0.083 %) solution for nebulization Shortness Of Breath Or Wheezing fluticasone fur. 200 mcg-umeclid 1 ea inhalation DAILY@79902/13/24 04/28/24 History 62.5 mcg-vilant 25 mcg inhalat.powder (Trelegy Ellipta) metoprolol succinate 50 mg 50 mg PO DAILY@79902/13/24 04/28/24 History tablet,extended release 24 hr qmiokpddykuv-hvofufhh-fjfkmn tablet 1 tab PO DAILY@79902/13/24 04/28/24 History aspirin 81 mg chewable tablet 81 mg PO DAILY@79903/30/24 04/28/24 History albuterol sulfate 90 mcg/actuation 1 puff inhalation QID PRN asthma 04/24/24 04/28/24 History aerosol inhaler cyanocobalamin (vitamin B-12) 1,000 mcg PO DAILY@79904/24/24 04/28/24 History 1,000 mcg tablet acetaminophen 325 mg tablet 650 mg PO Q6H PRN pain or fever 04/28/24 04/28/24 History amiodarone 200 mg tablet 200 mg PO DAILY@79904/28/24 04/28/24 History bisacodyl 10 mg rectal suppository 10 mg ND DAILY PRN Constipation 04/28/24 04/28/24 History furosemide 20 mg tablet 20 mg PO DAILY@79904/28/24 04/28/24 History magnesium hydroxide 400 mg/5 mL 30 ml PO DAILY PRN Constipation 04/28/24 04/28/24 History oral suspension (Milk of Magnesia) prednisone 20 mg tablet 20 mg PO DAILY@0800 04/28/24 04/28/24 History sodium phosphates 19 gram-7 118 ml [place] DAILY PRN Constipation 04/28/24 04/28/24 History gram/118 mL enema (Fleet Enema) Allergies Allergy/AdvReac Type Severity Reaction Status Date / Time No Known Allergies Allergy Verified 04/28/24 08:50 [No Known Allergies*] Exam Vital signs: Vital Signs Temp 97.8 F 05/04/24 16:00 Pulse 70 05/04/24 16:00 Resp 18 05/04/24 16:00 BP 103/48 L 05/04/24 16:00 Pulse Ox 92 05/04/24 16:00 O2 Del Method Nasal Cannula 05/04/24 16:00 O2 Flow Rate 1 05/04/24 16:00 Intake & Output 05/03/24 05/04/24 05/04/24 18:59 06:59 18:59 Intake Total 280 / 280 480 / 480 Output Total 700 / 700 300 / 300 Balance 280 / -420 -700 / -420 180 / 180 Urine Output (Average ml/kg/hr) 0.77 0.33 Intake: Intake, Oral Amount 180 / 180 480 / 480 Intake, IV Amount 100 / 100 Calcium Gluconate/NaCl,Iso-Osm 50 / 50 1 gm In 50 ml @ 50 mls/hr IV ONCE ONE Rx#:[id number] Piperacillin Sodium/Tazobactam 50 / 50 3.375 gm In 0.9 % Sodium Chloride 50 ml @ 100 mls/hr IV Q6H [facility] Rx#:[id number] Output: Output, Urine Amount 700 / 700 300 / 300 Other: Meal Refused No NPO No Breakfast % Eaten 100% Lunch % Eaten 75% Eating (Feeding) Ability Independent Number of Incontinent Voids 2 Number of Unmeasured Voids 2 Number of Bowel Movements 1 2 Urine purewick purewick Urine Color [place] Last Bowel Movement 05/03/24 05/04/24 05/04/24 Stool Bedpan Stool Amount Large Stool Color Brown Stool Consistency Mushy Weight 75.9 kg Weight in Grams 43235 Weight 75.9 kg BMI result Body Mass Index 26.2 - Constitutional Present: no acute distress - Routine HEENT Exam Head: Present: atraumatic - Routine Neck Exam Present: full ROM - Routine Respiratory Exam Present: decreased breath sounds, prolonged expiratory phase - Routine Cardiovascular Exam Cardiovascular: Present: tachycardia - Routine Abdominal Exam Present: diminished bowel sounds (less swollen right arm) - Routine Neurological Exam Present: alert - Detailed Neurological Exam: Coma Scale Eye Opening: Spontaneous (4) Data - Labs CBC & Chem 7: 05/04/24 06:18 05/04/24 06:18 Labs: Laboratory Last Values WBC 31.5 X10*3/uL (4.8-10.8) H* 05/04/24 06:18 RBC 3.76 X10*6/uL (4.60-5.80) L 05/04/24 06:18 Hgb 8.1 g/dl (14.0-18.0) L 05/04/24 06:18 Hct 27.0 % (42.0-52.0) L 05/04/24 06:18 MCV 71.8 fL (80.0-98.0) L 05/04/24 06:18 MCH 21.5 pg (27.0-33.0) L 05/04/24 06:18 MCHC 30.0 g/dl (31.0-36.0) L 05/04/24 06:18 RDW 35.8 % (11.0-16.0) H 05/04/24 06:18 Plt Count 195 X10*3/uL (160-400) 05/04/24 06:18 MPV Not Reportable 05/04/24 06:18 Immature Gran % (Auto) 2.0 % (0.0-0.4) H 05/04/24 06:18 Neut % (Auto) 89.6 % (45-73) H 05/04/24 06:18 Lymph % (Auto) 1.3 % (20-40) L 05/04/24 06:18 [place] % (Auto) 6.1 % (2-11) 05/04/24 06:18 Eos % (Auto) 0.8 % (0-4) 05/04/24 06:18 Baso % (Auto) 0.2 % (0-2) 05/04/24 06:18 Lymph # (Auto) 0.4 X10*3/uL (1.2-4.9) L 05/04/24 06:18 [place] # (Auto) 1.9 X10*3/uL (0.1-1.2) H 05/04/24 06:18 Eos # (Auto) 0.3 X10*3/uL (0.0-0.4) 05/04/24 06:18 Baso # (Auto) 0.1 X10*3/uL (0.0-0.2) 05/04/24 06:18 Abs Immat Gran (auto) 0.64 X10*3/uL (0.00-0.03) H 05/04/24 06:18 Absolute Neuts (auto) 28.2 x10*3/uL (2.0-8.3) H 05/04/24 06:18 Absolute Nucleated RBC 0.090 X10*3/uL (0.0-0.012) H 05/04/24 06:18 Nucleated RBC % (auto) 0.3 /100WBC (0.0-0.2) H 05/04/24 06:18 Neutrophils % (Manual) 84 % (45-73) H 04/28/24 09:12 Band Neutrophils % 9 % (3-5) H 04/28/24 09:12 Lymphocytes % (Manual) 1 % (20-40) L 04/28/24 09:12 Monocytes % (Manual) 1 % (2-11) L 04/28/24 09:12 Eosinophils % (Manual) 5 % (0-4) H 04/28/24 09:12 Abs Neuts (Manual) 28.3 X10*3/uL (2.0-8.3) H 04/28/24 09:12 Lymphocytes # (Manual) 0.3 X10*3/uL (1.2-4.9) L 04/28/24 09:12 Monocytes # (Manual) 0.3 X10*3/uL (0.1-1.2) 04/28/24 09:12 Eosinophils # (Manual) 1.5 X10*3/uL (0.0-0.4) H 04/28/24 09:12 Platelet Estimate NORMAL (NORMAL) 04/28/24 09:12 Large Platelets PRESENT 04/28/24 09:12 Plt Morphology Comment NOTED 04/28/24 09:12 RBC Morphology NOTED 04/28/24 09:12 Polychromasia 1+ (0-2) /OIF 04/28/24 09:12 Hypochromasia 3+ (>30) /OIF 04/28/24 09:12 Microcytosis 3+ (>30) /OIF 04/28/24 09:12 Spherocytes 3+ (>5) /OI 04/28/24 09:12 Ovalocytes 2+ (15-30) /OI 04/28/24 09:12 Jason Cells 1+ (0-2) /OIF 04/28/24 09:12 Schistocytes 2+ (3-5) /OI 04/28/24 09:12 Smear Tech's Comments VERIFIED 05/04/24 06:18 Absolute Retic 0.063 X10*6/uL (0.026-0.095) 05/03/24 11:50 Percent Retic 1.6 % (0.5-1.8) 05/03/24 11:50 Immature Retic Fraction 11.3 % (2.3-13.4) 05/03/24 11:50 Retic Hgb Equivalent 15.9 pg (30.0-35.0) L 05/03/24 11:50 PT 18.5 SEC (10.9-12.4) H 05/02/24 03:59 INR 1.6 (0.9-1.1) H 05/02/24 03:59 APTT 38.4 SEC (26.0-36.8) H 05/02/24 03:59 VBG pH 7.59 (7.32-7.43) H 05/01/24 04:46 VBG pCO2 31 mmHg 05/01/24 04:46 VBG pO2 43 mmHg 05/01/24 04:46 VBG HCO3 30 mmol/L (22-26) H 05/01/24 04:46 VBG O2 Saturation TNP 05/01/24 04:46 VBG Base Excess 8.8 mmol/L 05/01/24 04:46 Sodium 144 mmol/L (135-145) 05/04/24 06:18 Potassium 3.7 mmol/L (3.3-5.1) 05/04/24 06:18 Chloride 104 mmol/L (96-108) 05/04/24 06:18 Carbon Dioxide 33 mmol/L (22-29) H 05/04/24 06:18 Anion Gap 11 (12-20) L 05/04/24 06:18 BUN 16 mg/dL (9-16) 05/04/24 06:18 Creatinine 0.82 mg/dL (0.5-1.4) 05/04/24 06:18 Estim Creat Clear Calc 58.2 05/04/24 06:18 Estimated GFR > 60 05/04/24 06:18 Random Glucose 105 mg/dL (60-115) 05/04/24 06:18 Haptoglobin 75 mg/dL (40-268) 05/03/24 11:50 Lactic Acid 2.1 mmol/L (0.5-2.0) H* 04/30/24 15:35 Lactic Acid F/U @ 2Hr 1.9 mmol/L (0.5-2.0) 04/30/24 18:10 Calcium 8.1 mg/dL (8.4-10.2) L 05/04/24 06:18 Phosphorus 3.7 mg/dL (2.7-4.5) 05/04/24 06:18 Magnesium 2.0 mg/dL (1.6-2.6) 05/04/24 06:18 Total Bilirubin 0.6 mg/dL (0.0-1.0) 05/03/24 04:40 AST 22 U/L (5-37) 05/03/24 04:40 ALT 28 U/L (0-40) 05/03/24 04:40 Alkaline Phosphatase 58 U/L (39-117) 05/03/24 04:40 Lactate Dehydrogenase 286 U/L (118-273) H 05/03/24 11:50 Troponin I High Sens 61.4 ng/L (<3.5-35.0) H 04/28/24 14:06 B-Natriuretic Peptide 381 pg/mL (<100) H 05/02/24 03:59 Total Protein 5.7 g/dL (6.5-8.0) L 05/03/24 04:40 Albumin 3.3 g/dL (3.5-5.0) L 05/03/24 04:40 Hold Yellow Top See Note 05/01/24 21:56 Nasal Screen MRSA (PCR) NEGATIVE (Negative) 04/30/24 18:07 Nasal S. aureus Screen NEGATIVE (Negative) 04/30/24 18:07 Nasal MRSA/S.aureus Interp SEE NOTE 04/30/24 18:07 Stool Occult Blood POSITIVE (NEGATIVE) 05/03/24 14:03 Respiratory Panel [place] See Note 04/30/24 18:07 Adenovirus (Rapid PCR) Not Detected (Not Detect.) 04/30/24 18:07 B.pert (TEM-PCR) Not Detected (Not Detect.) 04/30/24 18:07 B.parapertussis DNA PCR Not Detected (Not Detect.) 04/30/24 18:07 C. pneumoniae DNA (PCR) Not Detected (Not Detect.) 04/30/24 18:07 Coronavirus OC43 (PCR) Not Detected (Not Detect.) 04/30/24 18:07 Coronavirus HKU1 (PCR) Not Detected (Not Detect.) 04/30/24 18:07 Coronavirus 229E (PCR) Not Detected (Not Detect.) 04/30/24 18:07 Coronavirus NL63 (PCR) Not Detected (Not Detect.) 04/30/24 18:07 Human Metapneumovir PCR Not Detected (Not Detect.) 04/30/24 18:07 Influenza A (RT-PCR) Not Detected (Not Detect.) 04/30/24 18:07 Influenza B (RT-PCR) Not Detected (Not Detect.) 04/30/24 18:07 M. pneumoniae (PCR) Not Detected (Not Detect.) 04/30/24 18:07 Parainfluenza 1 (PCR) Not Detected (Not Detect.) 04/30/24 18:07 Parainfluenza 2 (PCR) Not Detected (Not Detect.) 04/30/24 18:07 Parainfluenza 3 (PCR) Not Detected (Not Detect.) 04/30/24 18:07 Parainfluenza 4 (PCR) Not Detected (Not Detect.) 04/30/24 18:07 RSV (PCR) Not Detected (Not Detect.) 04/30/24 18:07 Entero/Rhino (PCR) Not Detected (Not Detect.) 04/30/24 18:07 SARS-CoV-2 RNA (RT-PCR) Not Detected (Not Detect.) 04/30/24 18:07 Ur Strep pneumoniae Ag Not Detected (Not Detected) 04/30/24 17:28 Blood Type A Positive 05/01/24 04:45 Antibody Screen NEGATIVE 05/01/24 04:45 Crossmatch See Detail 05/01/24 04:45 - Imaging Radiologist's impression: ITS Impressions Chest X-Ray 04/28/24 09:19 IMPRESSION: Pulmonary edema and bilateral moderate to large pleural effusions. Electronically signed by: Kj Rivera MD 04/28/2024 09:32 AM EST RP Chest Ultrasound 04/30/24 11:30 IMPRESSION: Bilateral pleural effusion right greater than left. Electronically signed by: Bridger Gardner MD 04/30/2024 03:05 PM EST RP Assessment and Plan Patient Active problem list reviewed?: Yes (1) Polycythemia vera Start date: 02/14/24 Status: Acute Assessment and plan: The acute anemia is likely due to bleeding. I recommend transfusion of rbcs instead of iron to facilitate outpatient treatment. He is purposely mad iron deficient to controll the P. vera s erythrocytosis. I will follow daily. I see no evidence for hemolysis.Recommend we continue current regimen. - Time Spent With Patient Time Spent with Patient (in minutes): 15
[2024-05-04] MEDS: Atorvastatin Calcium 20 MG TABLET PO (20:50)
[2024-05-05] VITALS (7 sets, daily range): BP systolic 96–121; BP diastolic 50–67; PULSE 65–69; RESP 16–20; TEMP 36.2–36.9; O2SAT 92–98; BMI 25.6
[2024-05-05] MEDS: Fluticasone/Umeclidinium/Vilanterol 200/62.5/25 BLST.W.DEV 1 PUFF INHALE (07:52)
[2024-05-05] MEDS: Albuterol/Iprat 2.5/0.5MG 3 ML AMPUL.NEB INHALE ×2 (07:53→11:56)
[2024-05-05 08:14] LABS: Basophils Percent Auto 0.2 % (0-2); Imm Gran Abs Auto 0.56 X10*3/uL (0.00-0.03); Imm Gran Pct Auto 1.7 % (0.0-0.4); MANUAL DIFF FLAG SCAN; NRBC Pct Auto 0.2 /100WBC (0.0-0.2); SCAN SMEAR FLAG 1
[2024-05-05 08:16] LABS: Basophils Absolute Auto 0.1 X10*3/uL (0.0-0.2); Eosinophils Absolute Auto 0.3 X10*3/uL (0.0-0.4); Eosinophils Percent Auto 0.9 % (0-4); Hemoglobin 8.1 g/dl (14.0-18.0); Lymphocytes Absolute Auto 0.5 X10*3/uL (1.2-4.9); Lymphocytes Percent Auto 1.4 % (20-40); Mean Corpuscular HGB Conc 28.9 g/dl (31.0-36.0); Mean Corpuscular Volume 72.5 fL (80.0-98.0); Monocytes Absolute Auto 1.8 X10*3/uL (0.1-1.2); Monocytes Percent Auto 5.5 % (2-11); Neutrophils Absolute Auto 30.1 x10*3/uL (2.0-8.3); Neutrophils Percent Auto 90.3 % (45-73); PLT CLUMP 1; Red Blood Count 3.86 X10*6/uL (4.60-5.80); Red Cell Distribution Width 36.3 % (11.0-16.0)
[2024-05-05 08:29] LABS: PLT ABN DIST 1
[2024-05-05 08:33] LABS: White Blood Count 33.4 X10*3/uL (4.8-10.8)
[2024-05-05 08:39] LABS: Anion Gap 8 (12-20); Blood Urea Nitrogen 18 mg/dL (9-16); Calcium 8.3 mg/dL (8.4-10.2); Carbon Dioxide 37 mmol/L (22-29); Chloride 102 mmol/L (96-108); Creatinine Clr Calc Pharmacy 58.9; Estimated Glomerular Filt Rate > 60; Glucose Random 80 mg/dL (60-115); Phosphorus 3.3 mg/dL (2.7-4.5); Potassium 3.6 mmol/L (3.3-5.1); Sodium 143 mmol/L (135-145)
[2024-05-05 08:44] LABS: Platelet Count 180 X10*3/uL (160-400)
[2024-05-05 08:45] LABS: SLIDE REVIEW VERIFIED
[2024-05-05] MEDS: Amoxicillin/Potassium Clav 875 MG TABLET PO ×2 (08:49→22:52)
[2024-05-05] MEDS: predniSONE 20 MG TABLET 40 MG PO (08:49)
[2024-05-05] MEDS: Amiodarone HCL 200 MG TABLET PO (08:49)
[2024-05-05] MEDS: Nystatin Oral Susp 500,000 UNIT/5 ML ORAL.SUSP 500000 UNIT PO ×4 (08:49→19:47)
--- NOTE | 2024-05-05 10:44 | MHC.CM.PN ---
Addendum entered by Klaudia Wolf RN 05/06/24 14:11: PER HOSPITALIST PT'S DC CANCELLED D/T NEED FOR ANOTHER DOSE OF IV LASIX AND FOLLOW OVERNIGHT, PT/FAMILY/NSG AWARE, TRANSPORT CANCELLED. Original Note: EMR REVIEWED, LUIS DESHAWN JOHN IS ABLE TO TAKE PT BACK TO [facility]UME STR TODAY IF CLEARED, PER HOSPITALIST PT MAY BE CLEARED, CM WILL CONT TO FOLLOW DC NEEDS.
--- NOTE | 2024-05-05 10:53 | P.PNIM_ITS ---
Subjective Subjective Date of Service: 05/05/24 Interval History: f/u on acute hypoxic resp failure d/t PNA, andrew effusion, hospital course complicated by hypotension, acute blood loss anemia required ICU care d/t hypotension overal better, no sob, Oxygenation is good. WBC is up Physical Exam 2 Vital Signs: Vital Signs: Last Vital Signs Temp 97.1 F 05/05/24 08:00 Pulse 66 05/05/24 08:00 Resp 20 05/05/24 08:00 BP 104/55 L 05/05/24 08:00 Pulse Ox 97 05/05/24 08:00 O2 Del Method Nasal Cannula 05/05/24 08:00 O2 Flow Rate 4 05/05/24 08:00 Oxygen Flow Rate 6 04/28/24 08:46 BMI result Body Mass Index 26.2 Const: Other: General: comfortable, no distress, Resp: CTA bilateral CVS: S1,S2,RRR GI: +BS, NT, no distention Skin: swollen right arm and left leg Neuro: motor grossly intact Psych: appropriate affect Objective Data Active Medications Acetaminophen (Acetaminophen 325 Mg Tablet) 650 mg PO Q6H PRN PRN Reason: Pain, Mild 1-3,fever,headache Last Admin: 05/04/24 04:19 Dose: 650 mg Documented By: WILL Albuterol Sulfate (Albuterol Sulfate (0.083%) 2.5 Mg/3 Ml Vial.Neb) 2.5 mg INHALE TID PRN PRN Reason: Shortness Of Breath Or Wheezing Albuterol Sulfate (Albuterol Sulfate 90 Mcg 8 Gm Inhaler) 1 puff INHALE QID PRN PRN Reason: asthma Albuterol/Ipratropium (Albuterol/Iprat 2.5/0.5mg 3 Ml Ampul.Neb) 3 ml INHALE RQ4H WHILE AWAKE [facility] Last Admin: 05/05/24 07:53 Dose: 3 ml Documented By: COLTON Amiodarone HCl (Amiodarone Hcl 200 Mg Tablet) 200 mg PO DAILY@0800 [facility] Last Admin: 05/05/24 08:49 Dose: 200 mg Documented By: JAMES Amoxicillin/Clavulanate Potassium (Amoxicillin/Potassium Clav 875 Mg Tablet) 875 mg PO Q12H [facility] Last Admin: 05/05/24 08:49 Dose: 875 mg Documented By: JAMES Atorvastatin Calcium (Atorvastatin Calcium 20 Mg Tablet) 20 mg PO DAILY@2000 [facility] Last Admin: 05/04/24 20:50 Dose: 20 mg Documented By: SHANITA Fluticasone/Umeclidinium/Vilanterol (Fluticasone/Umeclidinium/Vilanterol 200/62.5/25 Blst.W.Dev) 1 puff INHALE RDAILY@0800 [facility] Last Admin: 05/05/24 07:52 Dose: 1 puff Documented By: COLTON Guaifenesin (Guaifenesin La 600 Mg Tab.Er.12h) 600 mg PO BID PRN PRN Reason: Cough Last Admin: 05/04/24 04:19 Dose: 600 mg Documented By: WILL Nystatin (Nystatin Oral Susp 500,000 Unit/5 Ml Oral.Susp) 500,000 unit PO QID [facility]; Protocol Last Admin: 05/05/24 08:49 Dose: 500,000 unit Documented By: JAMES Ondansetron HCl (Ondansetron Hcl 4 Mg/2 Ml Vial) 4 mg IVPUSH Q8H PRN PRN Reason: Nausea and Vomiting Prednisone (Prednisone 20 Mg Tablet) 40 mg PO DAILY [facility] Last Admin: 05/05/24 08:49 Dose: 40 mg Documented By: JAMES Sodium Biphosphate/Sodium Phosphate (Sodium Phosphate,[place]-Dibasic 133 Ml Enema) 118 ml [place] DAILY PRN PRN Reason: Constipation Sodium Chloride (0.9 % Sodium Chloride Flush 3 Ml Syringe) 3 ml IVFLUSH QSHIFT [facility] Last Admin: 05/04/24 20:50 Dose: 3 ml Documented By: SHANITA Labs 05/05/24 07:42 05/05/24 07:42 Labs: Laboratory Results - last 24 hr 05/05/24 07:42 MCV 72.5 L MCH 21.0 L MCHC 28.9 L RDW 36.3 H Plt Count 180 MPV Not Reportable Immature Gran % (Auto) 1.7 H Neut % (Auto) 90.3 H Lymph % (Auto) 1.4 L [place] % (Auto) 5.5 Eos % (Auto) 0.9 Baso % (Auto) 0.2 Lymph # (Auto) 0.5 L [place] # (Auto) 1.8 H Eos # (Auto) 0.3 Baso # (Auto) 0.1 Abs Immat Gran (auto) 0.56 H Absolute Neuts (auto) 30.1 H Absolute Nucleated RBC 0.070 H Nucleated RBC % (auto) 0.2 Smear Tech's Comments VERIFIED Anion Gap 8 L Estim Creat Clear Calc 58.9 Estimated GFR > 60 Random Glucose 80 Calcium 8.3 L Phosphorus 3.3 Magnesium 2.0 Assessment and Plan (1) Acute on chronic hypoxic respiratory failure: Status: Acute (2) Pleural effusion: Status: Acute (3) Asthma exacerbation in COPD: Status: Acute (4) COPD exacerbation: Status: Resolved Plan Patient is a 88 Y M w/ JAK2-positive myeloproliferative disorder chronic leukocytosis, subclavian stenosis s/p stenting, hypertension, CAD, paroxysmal atrial fibrillation on apixaban, and COPD on 3L NC presenting initially to emergency department on 04/28 w/ encephalopathy, found to be w/ acute on chronic hypoxia, CT C angiogram not suggestive of PE, though demonsrated bilateral pleural effusions, admitted medicine; on 04/30, patient hypotensive, prompting ICU admission; ICU course c/b R UE hematoma necessitating massive transfusion Acute on chronic respiratory failure in the setting of bilateral pleural effusions and Pneumonia, clinically improved. He has been on Zosyn, transition to oral Augmentin on 05/04, repeat CXR on 05/02 showed improved airspace diaeaase, another xray today thoracentesis considered but cancelled in light of hypotension and anemia and respiratory status being stable. No CHF diagnosis, Echocardiogram showed EF 60-65%, impaired relaxation filling patterns, no pericardial effusion, inferior vena cava is normal in size and collapses greater than 50% with inspiration Seen by cardiology patient does not seem to be in CHF, RV strain likely cause of elevated BNP Acute Hypotension, likely related to blood loss resolved with IvF and blood products Oral thrush nystatin swish and spit Right upper extremity swelling appear to be from hematoma eliquis on hold Acute on chronic respiratory failure in the setting of COPD exacerbation underlying pneumonia Steroid, bronchodilators Left lower extremity pain and swelling, is chronic US was negative for DVT on 03/29 and 04/24 Eliquis on hold d/t acute blood loss anemia from hematoma. Right arm swelling d/t hematoma, holding eliquis Paroxysmal AFib recent sustained SVT s/p cardioversion holding Eliquis d/t acute blood lossn amiodarone Hold metoprolol due to soft BP Chronic leukocytosis, worse with steroid hx of JAK2 positive myeloproliferative disorder CAD/HLD Continue statin Full Code DVT Prophylaxis: Eliquis on hold d/t anemia, bleeding, compression device PT eval recommend return to SNF Quality Stroke Does the patient have a stroke diagnosis?: No VTE Prior VTE?: No VTE Risk Level:: Medical - moderate - high VTE Device Contraindication: N/A - Device Ordered VTE Drug Contraindication: Treatment Not Tolerated
[2024-05-05] MEDS: 0.9 % Sodium Chloride Flush 3 ML SYRINGE IVFLUSH (12:00)
[2024-05-05] MEDS: Atorvastatin Calcium 20 MG TABLET PO (19:47)
[2024-05-05] MEDS: guaiFENesin LA 600 MG TAB.ER.12H PO (22:52)
[2024-05-06] VITALS (9 sets, daily range): BP systolic 105–139; BP diastolic 51–75; PULSE 64–85; RESP 18–20; TEMP 36.1–36.7; O2SAT 2–96
[2024-05-06] MEDS: 0.9 % Sodium Chloride Flush 3 ML SYRINGE IVFLUSH ×4 (00:20→20:07)
[2024-05-06] MEDS: Fluticasone/Umeclidinium/Vilanterol 200/62.5/25 BLST.W.DEV 1 PUFF INHALE (07:49)
[2024-05-06 08:18] LABS: Mean Corpuscular HGB Conc 30.3 g/dl (31.0-36.0); NRBC Pct Auto 0.2 /100WBC (0.0-0.2); Red Cell Distribution Width 35.9 % (11.0-16.0)
[2024-05-06] MEDS: predniSONE 20 MG TABLET 40 MG PO (08:19)
[2024-05-06] MEDS: Amoxicillin/Potassium Clav 875 MG TABLET PO ×2 (08:19→21:39)
[2024-05-06] MEDS: Amiodarone HCL 200 MG TABLET PO (08:19)
[2024-05-06] MEDS: Nystatin Oral Susp 500,000 UNIT/5 ML ORAL.SUSP 500000 UNIT PO ×4 (08:19→20:00)
[2024-05-06 08:20] LABS: Anion Gap 9 (12-20); Blood Urea Nitrogen 20 mg/dL (9-16); Calcium 8.1 mg/dL (8.4-10.2); Carbon Dioxide 33 mmol/L (22-29); Chloride 102 mmol/L (96-108); Creatinine Clr Calc Pharmacy 61.9; Estimated Glomerular Filt Rate > 60; Glucose Random 97 mg/dL (60-115); Hematocrit 27.1 % (42.0-52.0); Hemoglobin 8.2 g/dl (14.0-18.0); Mean Corpuscular Hemoglobin 21.5 pg (27.0-33.0); Mean Corpuscular Volume 70.9 fL (80.0-98.0); Phosphorus 3.1 mg/dL (2.7-4.5); Red Blood Count 3.82 X10*6/uL (4.60-5.80); Sodium 140 mmol/L (135-145)
[2024-05-06 08:21] LABS: Anion Gap 10 (12-20); Blood Urea Nitrogen 19 mg/dL (9-16); Calcium 8.1 mg/dL (8.4-10.2); Carbon Dioxide 31 mmol/L (22-29); Chloride 102 mmol/L (96-108); Creatinine Clr Calc Pharmacy 62.8; Estimated Glomerular Filt Rate > 60; Glucose Random 96 mg/dL (60-115); Sodium 139 mmol/L (135-145)
[2024-05-06 08:22] LABS: PLT ABN DIST 1
[2024-05-06 08:31] LABS: B Type Natriuretic Peptide 192 pg/mL (<100)
[2024-05-06 08:44] LABS: Platelet Count 153 X10*3/uL (160-400); White Blood Count 35.7 X10*3/uL (4.8-10.8)
[2024-05-06 08:49] LABS: Band Neutrophils Percent 3 % (3-5); Eosinophils Absolute Manual 0.7 X10*3/uL (0.0-0.4); Eosinophils Percent Manual 2 % (0-4); Lymphocytes Absolute Manual 0.4 X10*3/uL (1.2-4.9); Lymphocytes Percent Manual 1 % (20-40); Macrocytosis 1+ (5-14) /OIF; Monocytes Absolute Manual 0.4 X10*3/uL (0.1-1.2); Monocytes Percent Manual 1 % (2-11); Neutrophils Absolute Manual 34.3 X10*3/uL (2.0-8.3); Neutrophils Percent Manual 93 % (45-73); RBC Morphology NOTED
[2024-05-06 08:50] LABS: Burr Cells 1+ (0-2) /OIF; Hypochromasia 1+ (5-14) /OIF; Large Platelet PRESENT; Microcytosis 1+ (5-14) /OIF; Ovalocytes 1+ (5-14) /OIF; Platelet Estimate SLIGHTLY DECREASED (NORMAL); Platelet Morphology Comment NOTED; Polychromasia 1+ (0-2) /OIF; Spherocytes 1+ (0-2) /OIF; Toxic Vacuolation PRESENT
--- NOTE | 2024-05-06 13:45 | HO.PM.IMPN ---
Subjective Subjective Date of Service: 05/06/24 Interval History: f/u on acute hypoxic resp failure d/t PNA, andrew effusion, hospital course complicated by hypotension, acute blood loss anemia required ICU care d/t hypotension overal better, no sob, Oxygenation is good. CXR from yesterday pulmonary edema Physical Exam Vital Signs: Vital Signs: Last Vital Signs Temp 98.1 F 05/06/24 11:12 Pulse 64 05/06/24 11:12 Resp 20 05/06/24 11:12 BP 113/55 L 05/06/24 11:12 Pulse Ox 96 05/06/24 11:12 O2 Del Method Nasal Cannula 05/06/24 11:12 O2 Flow Rate 2 05/06/24 11:12 Oxygen Flow Rate 6 04/28/24 08:46 BMI result Body Mass Index 25.6 Const: Other: General: comfortable, no distress, Resp: CTA bilateral CVS: S1,S2,RRR GI: +BS, NT, no distention Skin: swollen right arm and left leg Neuro: motor grossly intact Psych: appropriate affect Objective Data Active Medications Acetaminophen (Acetaminophen 325 Mg Tablet) 650 mg PO Q6H PRN PRN Reason: Pain, Mild 1-3,fever,headache Last Admin: 05/04/24 04:19 Dose: 650 mg Documented By: WILL Albuterol Sulfate (Albuterol Sulfate 90 Mcg 8 Gm Inhaler) 1 puff INHALE QID PRN PRN Reason: asthma Amiodarone HCl (Amiodarone Hcl 200 Mg Tablet) 200 mg PO DAILY@0800 [facility] Last Admin: 05/06/24 08:19 Dose: 200 mg Documented By: LUPE Amoxicillin/Clavulanate Potassium (Amoxicillin/Potassium Clav 875 Mg Tablet) 875 mg PO Q12H [facility] Last Admin: 05/06/24 08:19 Dose: 875 mg Documented By: LUPE Atorvastatin Calcium (Atorvastatin Calcium 20 Mg Tablet) 20 mg PO DAILY@1999 [facility] Last Admin: 05/05/24 19:47 Dose: 20 mg Documented By: SAE Fluticasone/Umeclidinium/Vilanterol (Fluticasone/Umeclidinium/Vilanterol 200/62.5/25 Blst.W.Dev) 1 puff INHALE RDAILY@0800 [facility] Last Admin: 05/06/24 07:49 Dose: 1 puff Documented By: COLTON Furosemide (Furosemide 20 Mg/2 Ml Vial) 20 mg IVPUSH ONCE ONE; Protocol Stop: 05/06/24 13:45 Guaifenesin (Guaifenesin La 600 Mg Tab.Er.12h) 600 mg PO BID PRN PRN Reason: Cough Last Admin: 05/05/24 22:52 Dose: 600 mg Documented By: SAE Nystatin (Nystatin Oral Susp 500,000 Unit/5 Ml Oral.Susp) 500,000 unit PO QID [facility]; Protocol Last Admin: 05/06/24 13:19 Dose: 500,000 unit Documented By: LUPE Ondansetron HCl (Ondansetron Hcl 4 Mg/2 Ml Vial) 4 mg IVPUSH Q8H PRN PRN Reason: Nausea and Vomiting Prednisone (Prednisone 20 Mg Tablet) 40 mg PO DAILY [facility] Last Admin: 05/06/24 08:19 Dose: 40 mg Documented By: LUPE Sodium Biphosphate/Sodium Phosphate (Sodium Phosphate,[place]-Dibasic 133 Ml Enema) 118 ml [place] DAILY PRN PRN Reason: Constipation Sodium Chloride (0.9 % Sodium Chloride Flush 3 Ml Syringe) 3 ml IVFLUSH QSHIFT [facility] Last Admin: 05/06/24 08:19 Dose: 3 ml Documented By: LUPE Labs 05/06/24 07:20 05/06/24 07:20 Labs: Laboratory Results - last 24 hr 05/06/24 05/06/24 05/06/24 07:20 07:20 07:20 MCV 70.9 L MCH 21.5 L MCHC 30.3 L RDW 35.9 H Plt Count 153 L MPV Not Reportable Immature Gran % (Auto) Cancelled Neut % (Auto) Cancelled Lymph % (Auto) Cancelled [place] % (Auto) Cancelled Eos % (Auto) Cancelled Baso % (Auto) Cancelled Lymph # (Auto) Cancelled [place] # (Auto) Cancelled Eos # (Auto) Cancelled Baso # (Auto) Cancelled Abs Immat Gran (auto) Cancelled Absolute Neuts (auto) Cancelled Absolute Nucleated RBC 0.060 H Nucleated RBC % (auto) 0.2 Neutrophils % (Manual) 93 H Band Neutrophils % 3 Lymphocytes % (Manual) 1 L Monocytes % (Manual) 1 L Eosinophils % (Manual) 2 Abs Neuts (Manual) 34.3 H Lymphocytes # (Manual) 0.4 L Monocytes # (Manual) 0.4 Eosinophils # (Manual) 0.7 H Toxic Vacuolation PRESENT Platelet Estimate SLIGHTLY DECREASED Large Platelets PRESENT Plt Morphology Comment NOTED RBC Morphology NOTED Polychromasia 1+ (0-2) Hypochromasia 1+ (5-14) Microcytosis 1+ (5-14) Macrocytosis 1+ (5-14) Spherocytes 1+ (0-2) Ovalocytes 1+ (5-14) Jason Cells 1+ (0-2) Anion Gap 10 L 9 L Estim Creat Clear Calc 62.8 61.9 Estimated GFR > 60 Random Glucose Calcium Phosphorus Magnesium B-Natriuretic Peptide 05/06/24 05/06/24 05/06/24 07:20 07:20 07:20 MCV MCH MCHC RDW Plt Count MPV Immature Gran % (Auto) Neut % (Auto) Lymph % (Auto) [place] % (Auto) Eos % (Auto) Baso % (Auto) Lymph # (Auto) [place] # (Auto) Eos # (Auto) Baso # (Auto) Abs Immat Gran (auto) Absolute Neuts (auto) Absolute Nucleated RBC Nucleated RBC % (auto) Neutrophils % (Manual) Band Neutrophils % Lymphocytes % (Manual) Monocytes % (Manual) Eosinophils % (Manual) Abs Neuts (Manual) Lymphocytes # (Manual) Monocytes # (Manual) Eosinophils # (Manual) Toxic Vacuolation Platelet Estimate Large Platelets Plt Morphology Comment RBC Morphology Polychromasia Hypochromasia Microcytosis Macrocytosis Spherocytes Ovalocytes Jason Cells Anion Gap Estim Creat Clear Calc Estimated GFR > 60 Random Glucose 96 97 Calcium 8.1 L 8.1 L Phosphorus 3.1 Magnesium 2.0 B-Natriuretic Peptide 192 H Microbiology Microbiology Results: Microbiology 04/30/24 15:35 Blood Culture - Final Blood - Venous No growth after 5 days. 04/30/24 15:35 Blood Culture - Final Blood - Venous No growth after 5 days. Assessment and Plan (1) Acute on chronic hypoxic respiratory failure: Status: Acute (2) Pleural effusion: Status: Acute (3) Asthma exacerbation in COPD: Status: Acute (4) COPD exacerbation: Status: Resolved Plan Patient is a 88 Y M w/ JAK2-positive myeloproliferative disorder chronic leukocytosis, subclavian stenosis s/p stenting, hypertension, CAD, paroxysmal atrial fibrillation on apixaban, and COPD on 3L NC presenting initially to emergency department on 04/28 w/ encephalopathy, found to be w/ acute on chronic hypoxia, CT C angiogram not suggestive of PE, though demonsrated bilateral pleural effusions, admitted medicine; on 04/30, patient hypotensive, prompting ICU admission; ICU course c/b R UE hematoma necessitating massive transfusion Acute on chronic respiratory failure in the setting of bilateral pleural effusions and Pneumonia, clinically improved. He has been on Zosyn, transition to oral Augmentin on 05/04, repeat CXR on 05/02 showed improved airspace diaeaase, another xray today thoracentesis considered but cancelled in light of hypotension and anemia and respiratory status being stable. No prior CHF diagnosis, Echocardiogram showed EF 60-65%, impaired relaxation filling patterns, no pericardial effusion, inferior vena cava is normal in size and collapses greater than 50% with inspiration Seen by cardiology patient does not seem to be in CHF, RV strain likely cause of elevated BNP. CXR 05/05 pulm edema.. Lasix 20 mg iv today Acute Hypotension, likely related to blood loss resolved with IvF and blood products Oral thrush nystatin swish and spit Right upper extremity swelling appear to be from hematoma eliquis on hold Acute on chronic respiratory failure in the setting of COPD exacerbation underlying pneumonia Steroid, bronchodilators Left lower extremity pain and swelling, is chronic US was negative for DVT on 03/29 and 04/24 Eliquis on hold d/t acute blood loss anemia from hematoma. Right arm swelling d/t hematoma, holding eliquis Paroxysmal AFib recent sustained SVT s/p cardioversion holding Eliquis d/t acute blood lossn amiodarone Hold metoprolol due to soft BP Chronic leukocytosis, worse with steroid hx of JAK2 positive myeloproliferative disorder CAD/HLD Continue statin Full Code DVT Prophylaxis: Eliquis on hold d/t anemia, bleeding, compression device PT eval recommend return to SNF Quality Stroke Does the patient have a stroke diagnosis?: No VTE Prior VTE?: No VTE Risk Level:: Medical - moderate - high VTE Device Contraindication: N/A - Device Ordered VTE Drug Contraindication: Treatment Not Tolerated
[2024-05-06] MEDS: Furosemide 20 MG/2 ML VIAL IVPUSH (14:10)
[2024-05-06] MEDS: Atorvastatin Calcium 20 MG TABLET PO (20:00)
[2024-05-06] MEDS: guaiFENesin LA 600 MG TAB.ER.12H PO (21:39)
[2024-05-07] VITALS (8 sets, daily range): BP systolic 103–139; BP diastolic 54–73; PULSE 60–74; RESP 14–20; TEMP 36.2–36.9; O2SAT 92–95; BMI 25.7
[2024-05-07] MEDS: Fluticasone/Umeclidinium/Vilanterol 200/62.5/25 BLST.W.DEV 1 PUFF INHALE (07:44)
[2024-05-07 08:44] LABS: Basophils Absolute Auto 0.1 X10*3/uL (0.0-0.2); Basophils Percent Auto 0.2 % (0-2); Eosinophils Absolute Auto 0.4 X10*3/uL (0.0-0.4); Eosinophils Percent Auto 1.2 % (0-4); Hematocrit 29.1 % (42.0-52.0); Hemoglobin 8.6 g/dl (14.0-18.0); Imm Gran Abs Auto 0.82 X10*3/uL (0.00-0.03); Imm Gran Pct Auto 2.3 % (0.0-0.4); Lymphocytes Absolute Auto 0.7 X10*3/uL (1.2-4.9); Lymphocytes Percent Auto 2.1 % (20-40); MANUAL DIFF FLAG SCAN; Mean Corpuscular HGB Conc 29.6 g/dl (31.0-36.0); Mean Corpuscular Hemoglobin 21.1 pg (27.0-33.0); Mean Corpuscular Volume 71.3 fL (80.0-98.0); Monocytes Absolute Auto 1.6 X10*3/uL (0.1-1.2); Monocytes Percent Auto 4.5 % (2-11); NRBC Pct Auto 0.1 /100WBC (0.0-0.2); Neutrophils Absolute Auto 31.6 x10*3/uL (2.0-8.3); Neutrophils Percent Auto 89.7 % (45-73); PLT CLUMP 1; Red Blood Count 4.08 X10*6/uL (4.60-5.80); Red Cell Distribution Width 35.7 % (11.0-16.0); SCAN SMEAR FLAG 1
[2024-05-07 08:46] LABS: Anion Gap 10 (12-20); Blood Urea Nitrogen 20 mg/dL (9-16); Calcium 8.4 mg/dL (8.4-10.2); Carbon Dioxide 34 mmol/L (22-29); Chloride 99 mmol/L (96-108); Creatinine Clr Calc Pharmacy 62.8; Estimated Glomerular Filt Rate > 60; Glucose Random 84 mg/dL (60-115); Magnesium 2.1 mg/dL (1.6-2.6); Phosphorus 2.9 mg/dL (2.7-4.5); Potassium 3.8 mmol/L (3.3-5.1); Sodium 139 mmol/L (135-145)
[2024-05-07 08:58] LABS: White Blood Count 35.2 X10*3/uL (4.8-10.8)
[2024-05-07 09:13] LABS: Platelet Count 123 X10*3/uL (160-400)
[2024-05-07 09:14] LABS: SLIDE REVIEW VERIFIED
[2024-05-07] MEDS: Nystatin Oral Susp 500,000 UNIT/5 ML ORAL.SUSP 500000 UNIT PO ×4 (09:27→20:17)
[2024-05-07] MEDS: 0.9 % Sodium Chloride Flush 3 ML SYRINGE IVFLUSH ×3 (09:27→20:19)
[2024-05-07] MEDS: Amiodarone HCL 200 MG TABLET PO (09:28)
[2024-05-07] MEDS: Amoxicillin/Potassium Clav 875 MG TABLET PO ×2 (09:28→20:18)
[2024-05-07] MEDS: predniSONE 20 MG TABLET 40 MG PO (09:28)
--- NOTE | 2024-05-07 12:32 | PM.HEMONCPN ---
Medical Summary - Medical Summary Date of Service: 05/07/24 Primary Care Provider: Stephanie Orr MD Medical Summary: He has been transferred out of ICU to [facility]. His BP is stable and the hematocrit is 27%. The edema in the right arm is less and extensive purpurae are developing. He denies unconrolled ain. We should continue current therapies. Pick Up Driver Utilized?: No - [place]an Speaking Interval History Interval history: Wyatt Shelton is a 88 year [facility] He presented with macrocytic anemia found to be due to B12 deficiency but not perniciousanemia. This was corrected. 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 He has been treated with episodic therapeutic phlebotomy. He was last seen in my office in February of 2023. He has stabilized and is comfortablwe. Review of Systems - Constitutional Reports anorexia - Eyes Reports sensitivity to light - ENT Reports other - Cardiovascular Reports fast heart rate - Respiratory Reports chest congestion - Gastrointestinal Reports dyspepsia - Genitourinary Genitourinary: Reports urinary hesitancy - Neurologic Denies hearing normal, Denies behavioral changes [facility] Medical History: Medical History (Last Reviewed 05/04/24 @ 10:25 by Zoya Goyal, PT) COPD (chronic obstructive pulmonary disease) Fracture Heart attack High cholesterol HTN (hypertension) Leukocytosis Polycythemia Family History: Family History (Last Reviewed 04/28/24 @ 17:12 by Pedrito Johnson MD) Daughter Aortic aneurysm Surgical History: Surgical History (Last Reviewed 05/04/24 @ 10:25 by Zoya Goyal, PT) H/O arthroscopy of shoulder Hx of rotator cuff surgery S/P angiogram of extremity Social History: Social History (Last Reviewed 04/28/24 @ 17:12 by Pedrito Johnson MD) Living Situation History: Household Members: Family Housing: House Do you presently have visiting nurse or other home services: No Tobacco History: Patient Tobacco Use Status: Current someday Tobacco Tobacco use type: Cigarette Cigarette Packs Per Day: 1 Second Hand Smoke Exposure: No Occupation Assessmet: service: No Home Medications and Allergies Current Medications: Current Medications Acetaminophen (Acetaminophen 325 Mg Tablet) 650 mg PO Q6H PRN PRN Reason: Pain, Mild 1-3,fever,headache Last Admin: 05/04/24 04:19 Dose: 650 mg Albuterol Sulfate (Albuterol Sulfate 90 Mcg 8 Gm Inhaler) 1 puff INHALE QID PRN PRN Reason: asthma Amiodarone HCl (Amiodarone Hcl 200 Mg Tablet) 200 mg PO DAILY@0800 [facility] Last Admin: 05/07/24 09:28 Dose: 200 mg Amoxicillin/Clavulanate Potassium (Amoxicillin/Potassium Clav 875 Mg Tablet) 875 mg PO Q12H [facility] Last Admin: 05/07/24 09:28 Dose: 875 mg Atorvastatin Calcium (Atorvastatin Calcium 20 Mg Tablet) 20 mg PO DAILY@1999 [facility] Last Admin: 05/06/24 20:00 Dose: 20 mg Fluticasone/Umeclidinium/Vilanterol (Fluticasone/Umeclidinium/Vilanterol 200/62.5/25 Blst.W.Dev) 1 puff INHALE RDAILY@0800 [facility] Last Admin: 05/07/24 07:44 Dose: 1 puff Furosemide (Furosemide 20 Mg Tablet) 20 mg PO DAILY [facility]; Protocol Guaifenesin (Guaifenesin La 600 Mg Tab.Er.12h) 600 mg PO BID PRN PRN Reason: Cough Last Admin: 05/06/24 21:39 Dose: 600 mg Nystatin (Nystatin Oral Susp 500,000 Unit/5 Ml Oral.Susp) 500,000 unit PO QID [facility]; Protocol Last Admin: 05/07/24 09:27 Dose: 500,000 unit Ondansetron HCl (Ondansetron Hcl 4 Mg/2 Ml Vial) 4 mg IVPUSH Q8H PRN PRN Reason: Nausea and Vomiting Prednisone (Prednisone 20 Mg Tablet) 40 mg PO DAILY [facility] Last Admin: 05/07/24 09:28 Dose: 40 mg Sodium Biphosphate/Sodium Phosphate (Sodium Phosphate,[place]-Dibasic 133 Ml Enema) 118 ml [place] DAILY PRN PRN Reason: Constipation Sodium Chloride (0.9 % Sodium Chloride Flush 3 Ml Syringe) 3 ml IVFLUSH QSHIFT [facility] Last Admin: 05/07/24 09:27 Dose: 3 ml Home Medications ?Medication ?Instructions ?Recorded ?Confirmed ?Type atorvastatin 20 mg tablet 20 mg PO DAILY@199902/22/20 04/28/24 History albuterol sulfate 2.5 mg/3 mL 2.5 mg inhalation TID PRN 02/13/24 04/28/24 History (0.083 %) solution for nebulization Shortness Of Breath Or Wheezing fluticasone fur. 200 mcg-umeclid 1 ea inhalation DAILY@0802/13/24 04/28/24 History 62.5 mcg-vilant 25 mcg inhalat.powder (Trelegy Ellipta) metoprolol succinate 50 mg 50 mg PO DAILY@79902/13/24 04/28/24 History tablet,extended release 24 hr eqfwvuwzrdas-oalzizey-orbdbm tablet 1 tab PO DAILY@79902/13/24 04/28/24 History aspirin 81 mg chewable tablet 81 mg PO DAILY@79903/30/24 04/28/24 History albuterol sulfate 90 mcg/actuation 1 puff inhalation QID PRN asthma 04/24/24 04/28/24 History aerosol inhaler cyanocobalamin (vitamin B-12) 1,000 mcg PO DAILY@0804/24/24 04/28/24 History 1,000 mcg tablet acetaminophen 325 mg tablet 650 mg PO Q6H PRN pain or fever 04/28/24 04/28/24 History amiodarone 200 mg tablet 200 mg PO DAILY@0804/28/24 04/28/24 History bisacodyl 10 mg rectal suppository 10 mg [place] DAILY PRN Constipation 04/28/24 04/28/24 History furosemide 20 mg tablet 20 mg PO DAILY@0804/28/24 04/28/24 History magnesium hydroxide 400 mg/5 mL 30 ml PO DAILY PRN Constipation 04/28/24 04/28/24 History oral suspension (Milk of Magnesia) prednisone 20 mg tablet 20 mg PO DAILY@0804/28/24 04/28/24 History sodium phosphates 19 gram-7 118 ml [place] DAILY PRN Constipation 04/28/24 04/28/24 History gram/118 mL enema (Fleet Enema) Allergies Allergy/AdvReac Type Severity Reaction Status Date / Time No Known Allergies Allergy Verified 04/28/24 08:50 [No Known Allergies*] Exam Vital signs: Vital Signs Temp 97.6 F 05/07/24 12:00 Pulse 72 05/07/24 12:00 Resp 18 05/07/24 12:00 BP 103/62 05/07/24 12:00 Pulse Ox 94 05/07/24 12:00 O2 Del Method Nasal Cannula 05/07/24 12:00 O2 Flow Rate 2 05/07/24 12:00 Intake & Output 05/06/24 05/07/24 05/07/24 18:59 06:59 18:59 Intake Total 600 / 600 Output Total 1000 / 1601 601 / 1601 375 / 375 Balance -400 / -1001 -601 / -1001 -375 / -375 Urine Output (Average ml/kg/hr) 1.12 0.67 0.42 Intake: Intake, Oral Amount 600 / 600 Output: Output, Urine Amount 1000 / 1400 400 / 1400 375 / 375 Output, Stool Amount 1 / 1 Output, Urine Amount (Catheter) 200 / 200 external catheter 200 / 200 Other: Meal Refused No NPO No Breakfast % Eaten 100% Lunch % Eaten 75% Dinner % Eaten 100% Eating (Feeding) Ability Set Up only Number of Incontinent Voids 1 Number of Unmeasured Voids 1 Number of Bowel Movements 2 1 Urine purewick purewick m purewick Urine Color Yellow Yellow [place] Last Bowel Movement 05/05/24 05/05/24 Stool Bedpan Incontinent Stool Amount Large Scant Stool Color Brown Dark Brown Stool Consistency Formed Liquid Weight 74.3 kg Weight in Grams 48653 Weight 74.3 kg BMI result Body Mass Index 25.7 - Constitutional Present: no acute distress - Routine HEENT Exam Head: Present: atraumatic - Routine Neck Exam Present: full ROM - Routine Respiratory Exam Present: decreased breath sounds, prolonged expiratory phase - Routine Cardiovascular Exam Cardiovascular: Present: tachycardia - Routine Abdominal Exam Present: diminished bowel sounds (less swollen right arm) - Routine Neurological Exam Present: alert - Detailed Neurological Exam: Coma Scale Eye Opening: Spontaneous (4) Data - Labs CBC & Chem 7: 05/07/24 07:41 05/07/24 07:41 - Imaging Radiologist's impression: ITS Impressions Chest X-Ray 04/28/24 09:19 IMPRESSION: Pulmonary edema and bilateral moderate to large pleural effusions. Electronically signed by: Kj Rivera MD 04/28/2024 09:32 AM [facility] [place]trasound 04/30/24 11:30 IMPRESSION: Bilateral pleural effusion right greater than left. Electronically signed by: Bridger Gardner MD 04/30/2024 03:05 PM EST RP Chest X-Ray 05/05/24 11:20 IMPRESSION: Pulmonary vascular congestion and small bilateral pleural effusions. Left lower lobe atelectasis versus pneumonia. Electronically signed by: Aris Gonzalez MD 05/05/2024 11:49 AM EDT RP Assessment and Plan Patient Active problem list reviewed?: Yes (1) Polycythemia vera Start date: 02/14/24 Status: Acute Assessment and plan: The acute anemia is likely due to bleeding. I recommend transfusion of rbcs instead of iron to facilitate outpatient treatment. He is purposely mad iron deficient to controll the P. vera s erythrocytosis. I will follow daily. I see no evidence for hemolysis.Recommend we continue current regimen.He is doing well and the right arm is better. - Time Spent With Patient Time Spent with Patient (in minutes): 15
--- NOTE | 2024-05-07 13:27 | P.PNIM_ITS ---
Subjective Subjective Date of Service: 05/07/24 Interval History: f/u on acute hypoxic resp failure d/t PNA, andrew effusion, hospital course complicated by hypotension, acute blood loss anemia required ICU care d/t hypotension overal better, no sob, Oxygenation is good. No new issues, doing well otherwise. Physical Exam 2 Vital Signs: Vital Signs: Last Vital Signs Temp 97.6 F 05/07/24 12:00 Pulse 72 05/07/24 12:00 Resp 18 05/07/24 12:00 BP 103/62 05/07/24 12:00 Pulse Ox 94 05/07/24 12:00 O2 Del Method Nasal Cannula 05/07/24 12:00 O2 Flow Rate 2 05/07/24 12:00 Oxygen Flow Rate 6 04/28/24 08:46 BMI result Body Mass Index 25.7 Const: Other: General: comfortable, no distress, Resp: CTA bilateral CVS: S1,S2,RRR GI: +BS, NT, no distention Skin: swollen right arm and left leg Neuro: motor grossly intact Psych: appropriate affect Objective Data Active Medications Acetaminophen (Acetaminophen 325 Mg Tablet) 650 mg PO Q6H PRN PRN Reason: Pain, Mild 1-3,fever,headache Last Admin: 05/04/24 04:19 Dose: 650 mg Documented By: WILL Albuterol Sulfate (Albuterol Sulfate 90 Mcg 8 Gm Inhaler) 1 puff INHALE QID PRN PRN Reason: asthma Amiodarone HCl (Amiodarone Hcl 200 Mg Tablet) 200 mg PO DAILY@0800 [facility] Last Admin: 05/07/24 09:28 Dose: 200 mg Documented By: YAMILKA Amoxicillin/Clavulanate Potassium (Amoxicillin/Potassium Clav 875 Mg Tablet) 875 mg PO Q12H [facility] Last Admin: 05/07/24 09:28 Dose: 875 mg Documented By: YAMILKA Atorvastatin Calcium (Atorvastatin Calcium 20 Mg Tablet) 20 mg PO DAILY@1999 [facility] Last Admin: 05/06/24 20:00 Dose: 20 mg Documented By: SAE Fluticasone/Umeclidinium/Vilanterol (Fluticasone/Umeclidinium/Vilanterol 200/62.5/25 Blst.W.Dev) 1 puff INHALE RDAILY@0800 [facility] Last Admin: 05/07/24 07:44 Dose: 1 puff Documented By: HOA Furosemide (Furosemide 20 Mg Tablet) 20 mg PO DAILY [facility]; Protocol Guaifenesin (Guaifenesin La 600 Mg Tab.Er.12h) 600 mg PO BID PRN PRN Reason: Cough Last Admin: 05/06/24 21:39 Dose: 600 mg Documented By: SAE Nystatin (Nystatin Oral Susp 500,000 Unit/5 Ml Oral.Susp) 500,000 unit PO QID [facility]; Protocol Last Admin: 05/07/24 09:27 Dose: 500,000 unit Documented By: YAMILKA Ondansetron HCl (Ondansetron Hcl 4 Mg/2 Ml Vial) 4 mg IVPUSH Q8H PRN PRN Reason: Nausea and Vomiting Prednisone (Prednisone 20 Mg Tablet) 40 mg PO DAILY [facility] Last Admin: 05/07/24 09:28 Dose: 40 mg Documented By: YAMILKA Sodium Biphosphate/Sodium Phosphate (Sodium Phosphate,Richardson-Dibasic 133 Ml Enema) [address] DAILY PRN PRN Reason: Constipation Sodium Chloride (0.9 % Sodium Chloride Flush 3 Ml Syringe) 3 ml IVFLUSH QSHIFT [facility] Last Admin: 05/07/24 09:27 Dose: 3 ml Documented By: YAMILKA Labs 05/07/24 07:41 05/07/24 07:41 Labs: Laboratory Results - last 24 hr 05/07/24 07:41 MCV 71.3 L MCH 21.1 L MCHC 29.6 L RDW 35.7 H Plt Count 123 L MPV Not Reportable Immature Gran % (Auto) 2.3 H Neut % (Auto) 89.7 H Lymph % (Auto) 2.1 L Richardson % (Auto) 4.5 Eos % (Auto) 1.2 Baso % (Auto) 0.2 Lymph # (Auto) 0.7 L Richardson # (Auto) 1.6 H Eos # (Auto) 0.4 Baso # (Auto) 0.1 Abs Immat Gran (auto) 0.82 H Absolute Neuts (auto) 31.6 H Absolute Nucleated RBC 0.040 H Nucleated RBC % (auto) 0.1 Smear Tech's Comments VERIFIED Anion Gap 10 L Estim Creat Clear Calc 62.8 Estimated GFR > 60 Random Glucose 84 Calcium 8.4 Phosphorus 2.9 Magnesium 2.1 Assessment and Plan (1) Acute on chronic hypoxic respiratory failure: Status: Acute (2) Pleural effusion: Status: Acute (3) Asthma exacerbation in COPD: Status: Acute (4) COPD exacerbation: Status: Resolved Plan Patient is a 88 Y M w/ JAK2-positive myeloproliferative disorder chronic leukocytosis, subclavian stenosis s/p stenting, hypertension, CAD, paroxysmal atrial fibrillation on apixaban, and COPD on 3L NC presenting initially to emergency department on 04/28 w/ encephalopathy, found to be w/ acute on chronic hypoxia, CT C angiogram not suggestive of PE, though demonsrated bilateral pleural effusions, admitted medicine; on 04/30, patient hypotensive, prompting ICU admission; ICU course c/b R UE hematoma necessitating massive transfusion Acute on chronic respiratory failure in the setting of bilateral pleural effusions and Pneumonia, clinically improved. He has been on Zosyn, transition to oral Augmentin on 05/04, repeat CXR on 05/02 showed improved airspace diaeaase, another xray today thoracentesis considered but cancelled in light of hypotension and anemia and respiratory status being stable. No prior CHF diagnosis, Echocardiogram showed EF 60-65%, impaired relaxation filling patterns, no pericardial effusion, inferior vena cava is normal in size and collapses greater than 50% with inspiration Seen by cardiology patient does not seem to be in CHF, RV strain likely cause of elevated BNP. CXR 05/05 pulm edema.. Lasix 20 mg daily Acute HypOtension, likely related to blood loss resolved with IvF and blood products Oral thrush nystatin swish and spit Right upper extremity swelling appear to be from hematoma eliquis on hold Acute on chronic respiratory failure in the setting of COPD exacerbation underlying pneumonia Steroid, bronchodilators Left lower extremity pain and swelling, is chronic US was negative for DVT on 03/29 and 04/24 Eliquis on hold d/t acute blood loss anemia from hematoma. Right arm swelling d/t hematoma, holding eliquis Paroxysmal AFib recent sustained SVT s/p cardioversion holding Eliquis d/t acute blood lossn amiodarone Hold metoprolol due to soft BP Chronic leukocytosis, worse with steroid hx of JAK2 positive myeloproliferative disorder CAD/HLD Continue statin Full Code DVT Prophylaxis: Eliquis on hold d/t anemia, bleeding, compression device PT eval recommend return to SNF, patient is now refusing to go to SNF and rather wants to go home Quality Stroke Does the patient have a stroke diagnosis?: No VTE Prior VTE?: No VTE Risk Level:: Medical - moderate - high VTE Device Contraindication: N/A - Device Ordered VTE Drug Contraindication: Treatment Not Tolerated
[2024-05-07] MEDS: Furosemide 20 MG TABLET PO (13:55)
--- NOTE | 2024-05-07 14:57 | MHC.CM.PN ---
EMR reviewed and per MD rounds, pt is medically cleared for discharge back to [facility]. Unfortunately Day Rach[facility] Hensley gave the bed they were saving for him away to another pt. This CM met with pt to discuss other rehab options and pt states he would like to return home. This CM spoke with pts son/HCP Ed, he states he will come in and speak to his dad about going to rehab. Hospitalist updated.
[2024-05-07] MEDS: Acetaminophen 325 MG TABLET 650 MG PO (20:17)
[2024-05-07] MEDS: Atorvastatin Calcium 20 MG TABLET PO (20:18)
[2024-05-08] MEDS: Acetaminophen 325 MG TABLET 650 MG PO (02:34)
[2024-05-08 04:00] VITALS: BP 141/73; PULSE 61; RESP 20; TEMP 36.3; O2SAT 94
[2024-05-08 07:42] VITALS: BP 147/64; PULSE 61; RESP 20; TEMP 36.3; O2SAT 95
[2024-05-08] MEDS: Fluticasone/Umeclidinium/Vilanterol 200/62.5/25 BLST.W.DEV 1 PUFF INHALE (07:51)
[2024-05-08 07:52] VITALS: PULSE 61; RESP 20; O2SAT 92
[2024-05-08 08:23] LABS: Basophils Absolute Auto 0.1 X10*3/uL (0.0-0.2); Basophils Percent Auto 0.3 % (0-2); Eosinophils Absolute Auto 0.3 X10*3/uL (0.0-0.4); Eosinophils Percent Auto 0.9 % (0-4); Hemoglobin 9.1 g/dl (14.0-18.0); Imm Gran Abs Auto 0.71 X10*3/uL (0.00-0.03); Imm Gran Pct Auto 2.1 % (0.0-0.4); Lymphocytes Absolute Auto 0.9 X10*3/uL (1.2-4.9); Lymphocytes Percent Auto 2.7 % (20-40); MANUAL DIFF FLAG SCAN; Mean Corpuscular HGB Conc 29.4 g/dl (31.0-36.0); Mean Corpuscular Volume 71.6 fL (80.0-98.0); Monocytes Absolute Auto 1.8 X10*3/uL (0.1-1.2); Monocytes Percent Auto 5.3 % (2-11); NRBC Pct Auto 0.1 /100WBC (0.0-0.2); Neutrophils Absolute Auto 30.7 x10*3/uL (2.0-8.3); Neutrophils Percent Auto 88.7 % (45-73); PLT CLUMP 1; Red Blood Count 4.33 X10*6/uL (4.60-5.80); Red Cell Distribution Width 35.5 % (11.0-16.0); SCAN SMEAR FLAG 1
[2024-05-08] MEDS: Amoxicillin/Potassium Clav 875 MG TABLET PO (08:36)
[2024-05-08] MEDS: 0.9 % Sodium Chloride Flush 3 ML SYRINGE IVFLUSH (08:37)
[2024-05-08] MEDS: Furosemide 20 MG TABLET PO (08:37)
[2024-05-08] MEDS: Nystatin Oral Susp 500,000 UNIT/5 ML ORAL.SUSP 500000 UNIT PO ×2 (08:37→12:12)
[2024-05-08] MEDS: Amiodarone HCL 200 MG TABLET PO (08:37)
[2024-05-08] MEDS: predniSONE 20 MG TABLET 40 MG PO (08:37)
[2024-05-08 08:44] LABS: White Blood Count 34.5 X10*3/uL (4.8-10.8)
[2024-05-08 08:49] LABS: Anion Gap 12 (12-20); Blood Urea Nitrogen 21 mg/dL (9-16); Calcium 8.1 mg/dL (8.4-10.2); Carbon Dioxide 28 mmol/L (22-29); Chloride 100 mmol/L (96-108); Creatinine Clr Calc Pharmacy 53.6; Estimated Glomerular Filt Rate > 60; Glucose Random 79 mg/dL (60-115); Phosphorus 3.3 mg/dL (2.7-4.5); Potassium 3.9 mmol/L (3.3-5.1); Sodium 136 mmol/L (135-145)
[2024-05-08 09:06] LABS: Platelet Count 93 X10*3/uL (160-400); SLIDE REVIEW VERIFIED
[2024-05-08 11:11] VITALS: BP 119/62; PULSE 62; RESP 17; TEMP 36.3; O2SAT 96
--- NOTE | 2024-05-08 11:47 | MHC.CM.PN ---
Addendum entered by Leatha Simpson 05/08/24 16:18: [facility] ACCEPTED PT PTS SON, ED, IS AWARE BLS TRANSPORT BOOKED FOR 1600 HOURS VIA [employer] Original Note: PT INFORMED CM THIS MORNING THAT HE DID NOT WANT TO GO TO STR AND WANTED TO GO HOME TODAY CM CALLED PTS SON, ED, WHO AGREED TO COME IN TO MEET WITH PT MD SIDDHARTH, AND SON MET WITH PT WHO IS NOW AGREEABLE TO STR HE WOULD PREFER [facility] IT IS CLOSER TO HOME/FAMILY REFERRAL MADE
--- NOTE | 2024-05-08 11:52 | HO.PM.IMPN ---
Subjective Subjective Date of Service: 05/08/24 Interval History: f/u on acute hypoxic resp failure d/t PNA, andrew effusion, hospital course complicated by hypotension, acute blood loss anemia required ICU care d/t hypotension overal better, no sob, Oxygenation is good. No new issues, doing well otherwise but very frail and thinking he can go home rather than rehab. Physical Exam Vital Signs: Vital Signs: Last Vital Signs Temp 97.4 F 05/08/24 11:11 Pulse 62 05/08/24 11:11 Resp 17 05/08/24 11:11 BP 119/62 05/08/24 11:11 Pulse Ox 96 05/08/24 11:11 O2 Del Method Nasal Cannula 05/08/24 11:11 O2 Flow Rate 2 05/08/24 11:11 Oxygen Flow Rate 6 04/28/24 08:46 BMI result Body Mass Index 25.7 Const: Other: General: comfortable, no distress, Resp: CTA bilateral CVS: S1,S2,RRR GI: +BS, NT, no distention Skin: swollen right arm and left leg Neuro: motor grossly intact Psych: appropriate affect Objective Data Active Medications Acetaminophen (Acetaminophen 325 Mg Tablet) 650 mg PO Q6H PRN PRN Reason: Pain, Mild 1-3,fever,headache Last Admin: 05/08/24 02:34 Dose: 650 mg Documented By: KEVIN Albuterol Sulfate (Albuterol Sulfate 90 Mcg 8 Gm Inhaler) 1 puff INHALE QID PRN PRN Reason: asthma Amiodarone HCl (Amiodarone Hcl 200 Mg Tablet) 200 mg PO DAILY@0800 [facility] Last Admin: 05/08/24 08:37 Dose: 200 mg Documented By: WILDER Amoxicillin/Clavulanate Potassium (Amoxicillin/Potassium Clav 875 Mg Tablet) 875 mg PO Q12H [facility] Last Admin: 05/08/24 08:36 Dose: 875 mg Documented By: WILDER Atorvastatin Calcium (Atorvastatin Calcium 20 Mg Tablet) 20 mg PO DAILY@1999 [facility] Last Admin: 05/07/24 20:18 Dose: 20 mg Documented By: KEVIN Fluticasone/Umeclidinium/Vilanterol (Fluticasone/Umeclidinium/Vilanterol 200/.07/18 Blst.W.Dev) 1 puff INHALE RDAILY@0800 [facility] Last Admin: 05/08/24 07:51 Dose: 1 puff Documented By: COLTON Furosemide (Furosemide 20 Mg Tablet) 20 mg PO DAILY [facility]; Protocol Last Admin: 05/08/24 08:37 Dose: 20 mg Documented By: WILDER Guaifenesin (Guaifenesin La 600 Mg Tab.Er.12h) 600 mg PO BID PRN PRN Reason: Cough Last Admin: 05/06/24 21:39 Dose: 600 mg Documented By: SAE Nystatin (Nystatin Oral Susp 500,000 Unit/5 Ml Oral.Susp) 500,000 unit PO QID [facility]; Protocol Last Admin: 05/08/24 08:37 Dose: 500,000 unit Documented By: WILDER Ondansetron HCl (Ondansetron Hcl 4 Mg/2 Ml Vial) 4 mg IVPUSH Q8H PRN PRN Reason: Nausea and Vomiting Prednisone (Prednisone 20 Mg Tablet) 40 mg PO DAILY [facility] Last Admin: 05/08/24 08:37 Dose: 40 mg Documented By: WILDER Sodium Biphosphate/Sodium Phosphate (Sodium Phosphate,Traill-Dibasic 133 Ml Enema) 118 ml [place] DAILY PRN PRN Reason: Constipation Sodium Chloride (0.9 % Sodium Chloride Flush 3 Ml Syringe) 3 ml IVFLUSH QSHIFT [facility] Last Admin: 05/08/24 08:37 Dose: 3 ml Documented By: WILDER Labs 05/08/24 08:08 05/08/24 08:08 Labs: Laboratory Results - last 24 hr 05/08/24 08:08 MCV 71.6 L MCH 21.0 L MCHC 29.4 L RDW 35.5 H Plt Count 93 L MPV Not Reportable Immature Gran % (Auto) 2.1 H Neut % (Auto) 88.7 H Lymph % (Auto) 2.7 L [place] % (Auto) 5.3 Eos % (Auto) 0.9 Baso % (Auto) 0.3 Lymph # (Auto) 0.9 L [place]ill # (Auto) 1.8 H Eos # (Auto) 0.3 Baso # (Auto) 0.1 Abs Immat Gran (auto) 0.71 H Absolute Neuts (auto) 30.7 H Absolute Nucleated RBC 0.050 H Nucleated RBC % (auto) 0.1 Smear Tech's Comments VERIFIED Anion Gap 12 Estim Creat Clear Calc 53.6 Estimated GFR > 60 Random Glucose 79 Calcium 8.1 L Phosphorus 3.3 Magnesium 2.0 Assessment and Plan (1) Acute on chronic hypoxic respiratory failure: Status: Acute (2) Pleural effusion: Status: Acute (3) Asthma exacerbation in COPD: Status: Acute (4) COPD exacerbation: Status: Resolved Plan Patient is a 88 Y M w/ JAK2-positive myeloproliferative disorder chronic leukocytosis, subclavian stenosis s/p stenting, hypertension, CAD, paroxysmal atrial fibrillation on apixaban, and COPD on 3L NC presenting initially to emergency department on 04/28 w/ encephalopathy, found to be w/ acute on chronic hypoxia, CT C angiogram not suggestive of PE, though demonsrated bilateral pleural effusions, admitted medicine; on 04/30, patient hypotensive, prompting ICU admission; ICU course c/b R UE hematoma necessitating massive transfusion Acute on chronic respiratory failure in the setting of bilateral pleural effusions and Pneumonia, clinically improved. He has been on Zosyn, transition to oral Augmentin on 05/04, repeat CXR on 05/02 showed improved airspace diaeaase, another xray today thoracentesis considered but cancelled in light of hypotension and anemia and respiratory status being stable. No prior CHF diagnosis, Echocardiogram showed EF 60-65%, impaired relaxation filling patterns, no pericardial effusion, inferior vena cava is normal in size and collapses greater than 50% with inspiration Seen by cardiology patient does not seem to be in CHF, RV strain likely cause of elevated BNP. CXR 05/05 pulm edema.. Lasix 20 mg daily Acute HypOtension, likely related to blood loss resolved with IvF and blood products Oral thrush nystatin swish and spit Right upper extremity swelling appear to be from hematoma eliquis on hold Acute on chronic respiratory failure in the setting of COPD exacerbation underlying pneumonia Steroid, bronchodilators Left lower extremity pain and swelling, is chronic US was negative for DVT on 03/29 and 04/24 Eliquis on hold d/t acute blood loss anemia from hematoma and low platlet Right arm swelling d/t hematoma, holding eliquis Paroxysmal AFib recent sustained SVT s/p cardioversion holding Eliquis d/t acute blood lossn amiodarone Hold metoprolol due to soft BP Chronic leukocytosis, worse with steroid hx of JAK2 positive myeloproliferative disorder CAD/HLD Continue statin Full Code DVT Prophylaxis: Eliquis on hold d/t anemia, low platlets bleeding, compression device PT eval recommend return to SNF, patient is now refusing to go to SNF and rather wants to go home. He is very frail and hard time getting up on his own, discussed with patient and son at the bedsie and agree that home will not be safe for him, he will go to rehab. Quality Stroke Does the patient have a stroke diagnosis?: No VTE Prior VTE?: No VTE Risk Level:: Medical - moderate - high VTE Device Contraindication: N/A - Device Ordered VTE Drug Contraindication: Treatment Not Tolerated
--- NOTE | 2024-05-08 14:58 | PM.DS ---
DS: Providers Provider Date of Service: 05/08/24 Date of admission: 04/28/24 12:55 Date of discharge: 05/08/24 Primary care physician: Stephanie Orr MD Consults: 04/28/24 15:41 Consult to Cardiology Routine Consulting Provider: [facility] Reason for consultation: CHF/HYPOTENSION Has provider been notified: No 05/01/24 10:05 Consult to General Surgery Routine Consulting Provider: [facility] General Surgeons Reason for consultation: hematoma in the arm 05/03/24 11:10 Consult to Hematology / Oncology Routine Consulting Provider: [facility] Oncology/Hematology Reason for consultation: anemia/ANDREA mutation Has provider been notified: No DS: Diagnosis Discharge Diagnosis (1) Acute on chronic hypoxic respiratory failure: Status: Acute (2) Pleural effusion: Status: Acute (3) Asthma exacerbation in COPD: Status: Acute (4) COPD exacerbation: Status: Resolved DS: Summary Hospital Course Hospital Course: admission hpi Chief Complaint: Respiratory distress Pt is an 88-year-old male with a PMH significant for?COPD on home 3L O2, paroxysmal on Eliquis, 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 Pt discharged from the hospital yesterday after being treated for acute encephalopathy, right lower lobe pneumonia, and COPD exacerbation with broad-spectrum antibiotics, steroids, and bronchodilators. Pt was discharged to [facility] on Augmentin, doxycycline, and prednisone 20mg po x5 days. This morning at [facility] pt was found with his oxygen off, satting at 68%, and in respiratory distress. O2 sat mildly improved to 72% on 3 L NC by EMS, who then placed pt on 10 L non-rebreather with improvement to 96%. Pt is slightly confused during interview and examination, initially stating that he was supposed to be sent home today. After pt is told he was discharged yesterday and is now back at the hospital, he seems to remember being at [facility] though is unaware of what brought him to the ED today. Complains of lower back pain as well as left lower leg pain, both which appear chronic. Denies shortness or breath, but states has had occasionally productive cough. Denies chest pain/pressure, or palpitations. In the ED pt was tachypneic up to 26. Pt is satting in the 60s on RA at [facility], placed on non-rebreather by EMS, and initially satting in the 70s on 3L NC. Labs were significant for chronically elevated WBCs of 30.4. Stable microcytic anemia of 10.4/38.1 and MCV 60.3. Initial troponin 89.9 (has been elevated in the past). BNP 771 (increased from 223 on 04/24/2024). No significant electrolyte abnormalities. VBG with pH 7.45, pCO2 70, and bicarb 49. CXR showed new pulmonary edema and bilateral moderate to large pleural effusions. EKG demonstrated sinus bradycardia of 53 with first-degree AV block and no evidence of significant ST elevations or depressions. Pt was treated with DuoNebs, Solu-Medrol, and Zosyn. Pt will be admitted to the hospital for treatment and further evaluation of acute on chronic hypoxic respiratory failure in the setting of bilateral pleural effusions with underlying pneumonia. Hospital course: Patient is an 88 Y M w/ JAK2-positive myeloproliferative disorder, chronic leukocytosis, subclavian stenosis s/p stenting, hypertension, CAD, paroxysmal atrial fibrillation on apixaban, and COPD on 3L NC presenting initially to emergency department on 04/28 w/ encephalopathy, found to be w/ acute on chronic hypoxia. CT C angiogram not suggestive of PE, though demonstrated bilateral pleural effusions, admitted medicine; on 04/30/24, he became hypotensive, prompting ICU admission; ICU course complicated by R UE hematoma necessitating massive transfusion and improved and was transferred out of ICU and continues to improve. Acute on chronic respiratory failure in the setting of bilateral pleural effusions and pneumonia, clinically improved. He has completed 10 days of antibiotics with Zosyn and Augmentin and no antibiotics indicated at this time. Repeat X-ray showed improved airspace disease and small effusion. Initially thoracentesis considered but cancelled in light of hypotension, anemia, and stable respiratory status. Probable acute diastolic CHF. Echocardiogram showed EF 60-65%, impaired relaxation filling patterns, no pericardial effusion, inferior vena cava is normal in size and collapses greater than 50% with inspiration. Seen by cardiology, patient does not seem to be in CHF, RV strain likely cause of elevated BNP. CXR 05/05 pulmonary edema. He is presently on Lasix 20 mg daily. Acute hypotension, likely related to blood loss, resolved with IVF and blood products, albumin, and vasopressors. He has continued to be hemodynamically stable. Oral thrush: nystatin swish and spit. Right upper extremity swelling appears to be from hematoma. Eliquis has been on hold indefinitely. Acute blood loss anemia?from hematoma and eliquis use, hematocrit of 37 on 04/27, dropped to 21 on 05/02, and was transfused 3 units of RBCs and 6 units of FFPs, his hematocrit has stabilized around 31 as of today 05/08 and is stable with no evidence of active bleed. Eliquis remains on hold. Acute on chronic respiratory failure in the setting of COPD exacerbation and underlying pneumonia. Steroids, bronchodilators, presently on prednisone 40 mg and will be weaned off slowly. Thrombocytopenia?platelets have been trending down. He has not been on heparin, probably related to antibiotics (Zosyn). Stopping all antibiotics at this time and recommends repeat platelet count within the week. Left lower extremity pain and swelling, is chronic. US was negative for DVT on 03/29 and 04/24. Eliquis on hold due to acute blood loss anemia from hematoma of right arm and low platelets. Restarting to be decided on outpatient basis. Right arm swelling due to hematoma, holding eliquis. The arm remains swollen. Paroxysmal AFib, recent sustained SVT s/p cardioversion. Holding Eliquis due to acute blood loss. Amiodarone. Hold metoprolol due to soft BP. Chronic leukocytosis, worse with steroid, hx of JAK2 positive myeloproliferative disorder and more elevated due to recent steroid use CAD/HLD, continue statin. Time Attestation Discharge Coordination Time (in mins): 35 Quality: Safe Use of Opioids Does Pt have an Active Cancer Diagnosis on the Problem List?: No Quality: Stroke Does the patient have a stroke diagnosis?: No Physical Exam Vital Signs: Vital Signs: Selected Entries 05/08/24 15:19 05/08/24 15:52 Temperature 99.2 F Pulse Rate 64 75 Blood Pressure 143/86 H Pulse Oximetry 97 Oxygen Delivery Me thod Nasal Cannula DS: Data Data Completed and Pending Completed studies during hospitalization [Text1]: Procedures [place] of Cardiac Rhythm, Single (02/13/24) Labs on day of discharge: Laboratory Results - last 24 hr 05/06/24 05/06/2405/06/25 07:20 07:20 07:20 WBC 35.7 H* RBC 3.82 L Hgb 8.2 L Hct 27.1 L MCV 70.9 L MCH 21.5 L MCHC 30.3 L RDW 35.9 H Plt Count 153 L MPV Not Reportable Immature Gran % (Auto) Cancelled Neut % (Auto) Cancelled Lymph % (Auto) Cancelled [place] % (Auto) Cancelled Eos % (Auto) Cancelled Baso % (Auto) Cancelled Lymph # (Auto) Cancelled [place] # (Auto) Cancelled Eos # (Auto) Cancelled Baso # (Auto) Cancelled Abs Immat Gran (auto) Cancelled Absolute Neuts (auto) Cancelled Absolute Nucleated RBC 0.060 H Nucleated RBC % (auto) 0.2 Neutrophils % (Manual) 93 H Band Neutrophils % 3 Lymphocytes % (Manual) 1 L Monocytes % (Manual) 1 L Eosinophils % (Manual) 2 Abs Neuts (Manual) 34.3 H Lymphocytes # (Manual) 0.4 L Monocytes # (Manual) 0.4 Eosinophils # (Manual) 0.7 H Toxic Vacuolation PRESENT Platelet Estimate SLIGHTLY DECREASED Large Platelets PRESENT Plt Morphology Comment NOTED RBC Morphology NOTED Polychromasia 1+ (0-2) Hypochromasia 1+ (5-14) Microcytosis 1+ (5-14) Macrocytosis 1+ (5-14) Spherocytes 1+ (0-2) Ovalocytes 1+ (5-14) Jason Cells 1+ (0-2) Sodium 139 140 Potassium 4.0 4.0 Chloride 102 Carbon Dioxide Anion Gap BUN Creatinine Estim Creat Clear Calc Estimated GFR Random Glucose Calcium Phosphorus Magnesium B-Natriuretic Peptide 05/06/24 05/06/24 05/06/24 07:20 07:20 07:20 WBC RBC Hgb Hct MCV MCH MCHC RDW Plt Count MPV Immature Gran % (Auto) Neut % (Auto) Lymph % (Auto) [place] % (Auto) Eos % (Auto) Baso % (Auto) Lymph # (Auto) [place] # (Auto) Eos # (Auto) Baso # (Auto) Abs Immat Gran (auto) Absolute Neuts (auto) Absolute Nucleated RBC Nucleated RBC % (auto) Neutrophils % (Manual) Band Neutrophils % Lymphocytes % (Manual) Monocytes % (Manual) Eosinophils % (Manual) Abs Neuts (Manual) Lymphocytes # (Manual) Monocytes # (Manual) Eosinophils # (Manual) Toxic Vacuolation Platelet Estimate Large Platelets Plt Morphology Comment RBC Morphology Polychromasia Hypochromasia Microcytosis Macrocytosis Spherocytes Ovalocytes Jason Cells Sodium Potassium Chloride 102 Carbon Dioxide 31 H 33 H Anion Gap 10 L 9 L BUN 19 H Creatinine Estim Creat Clear Calc Estimated GFR Random Glucose Calcium Phosphorus Magnesium B-Natriuretic Peptide 05/06/24 05/06/24 05/06/24 07:20 07:20 07:20 WBC RBC Hgb Hct MCV MCH MCHC RDW Plt Count MPV Immature Gran % (Auto) Neut % (Auto) Lymph % (Auto) [place] % (Auto) Eos % (Auto) Baso % (Auto) Lymph # (Auto) [place] # (Auto) Eos # (Auto) Baso # (Auto) Abs Immat Gran (auto) Absolute Neuts (auto) Absolute Nucleated RBC Nucleated RBC % (auto) Neutrophils % (Manual) Band Neutrophils % Lymphocytes % (Manual) Monocytes % (Manual) Eosinophils % (Manual) Abs Neuts (Manual) Lymphocytes # (Manual) Monocytes # (Manual) Eosinophils # (Manual) Toxic Vacuolation Platelet Estimate Large Platelets Plt Morphology Comment RBC Morphology Polychromasia Hypochromasia Microcytosis Macrocytosis Spherocytes Ovalocytes Jason Cells Sodium Potassium Chloride Carbon Dioxide Anion Gap BUN 20 H Creatinine 0.76 0.77 Estim Creat Clear Calc 62.8 61.9 Estimated GFR > 60 Random Glucose Calcium Phosphorus Magnesium B-Natriuretic Peptide 05/06/24 05/06/24 05/06/24 07:20 07:20 07:20 WBC RBC Hgb Hct MCV MCH MCHC RDW Plt Count MPV Immature Gran % (Auto) Neut % (Auto) Lymph % (Auto) [place] % (Auto) Eos % (Auto) Baso % (Auto) Lymph # (Auto) [place] # (Auto) Eos # (Auto) Baso # (Auto) Abs Immat Gran (auto) Absolute Neuts (auto) Absolute Nucleated RBC Nucleated RBC % (auto) Neutrophils % (Manual) Band Neutrophils % Lymphocytes % (Manual) Monocytes % (Manual) Eosinophils % (Manual) Abs Neuts (Manual) Lymphocytes # (Manual) Monocytes # (Manual) Eosinophils # (Manual) Toxic Vacuolation Platelet Estimate Large Platelets Plt Morphology Comment RBC Morphology Polychromasia Hypochromasia Microcytosis Macrocytosis Spherocytes Ovalocytes [place] Cells Sodium Potassium Chloride Carbon Dioxide Anion Gap BUN Creatinine Estim Creat Clear Calc Estimated GFR > 60 Random Glucose 96 97 Calcium 8.1 L 8.1 L Phosphorus 3.1 Magnesium 2.0 B-Natriuretic Peptide 192 H Discharge Plan Discharge Anticipated Discharge Date/Time: 05/08/24 14:52 Patient Disposition: Xfer SNF Discharge Diagnosis: Pneumonia, Hematoma, hypotension, Referrals: [facility] [Outside] - 1 Day (RESUMPTION OF STR) PhysicianJasmin [Physician] - 1 Week Aris Garzon MD [Physician] - 1 Week Discharge Medications: New prednisone 10 mg tablet See Taper PO DIRECTED Qty: 13 0RF Taper: Prednisone 30 mg daily for 2 Days and 0 Hour 20 mg daily for 2 Days and 0 Hour 10 mg daily for 3 Days and 0 Hour Rx Instructions: see taper instructions Continued cyanocobalamin (vitamin B-12) 1,000 mcg tablet 1,000 mcg PO DAILY@0800 albuterol sulfate 90 mcg/actuation HFA aerosol inhaler 1 puff INHALATION QID PRN (Reason: asthma) albuterol sulfate 2.5 mg /3 mL (0.083 %) solution for nebulization 2.5 mg inhalation TID PRN (Reason: Shortness Of Breath Or Wheezing) Trelegy Ellipta 200-62.5-25 mcg blister with device 1 ea INHALATION DAILY@0800 [id number] Tablet 1 tab PO DAILY@0800 acetaminophen 325 mg Tablet 650 mg PO Q6H PRN (Reason: pain or fever) magnesium hydroxide [Milk of Magnesia] 400 mg/5 mL Suspension 30 ml PO DAILY PRN (Reason: Constipation) bisacodyl 10 mg Suppository 10 mg [place] DAILY PRN (Reason: Constipation) Fleet Enema 19-7 gram/118 mL Enema 118 ml [place] DAILY PRN (Reason: Constipation) furosemide 20 mg Tablet 20 mg PO DAILY@0800 amiodarone 200 mg tablet 200 mg PO DAILY@0800 atorvastatin 20 mg tablet 20 mg PO DAILY@2000 Discontinued aspirin 81 mg Tablet,Chewable 81 mg PO DAILY@0800 amoxicillin-pot clavulanate 875-125 mg tablet 1 tab PO BID Qty: 10 0RF Rx Instructions: stop date: 05/02/24 doxycycline monohydrate 100 mg capsule 100 mg PO BID Qty: 10 0RF Rx Instructions: stop date: 05/02/24 metoprolol succinate 50 mg tablet extended release 24 hr 50 mg PO DAILY@0800 apixaban 5 mg tablet 5 mg PO BID Qty: 180 0RF prednisone 20 mg tablet 20 mg PO DAILY@0800 Rx Instructions: stop date: 04/29/24 Discharge Orders: Discharge Order (Routine); Ordered 05/08/24 Ordered By: Van Torres Diet: Advance to usual diet Activity on Discharge: As tolerated Stand Alone Forms: Patient Portal Discharge page Print Language: French Care Plan Goals: recovery from acute hypoxic respiratory failure, pneumonia with parapneumonic effusion and right arm hematoma Health Concerns: right arm hematoma acute hypoxic respiratory failure pneumonia with parapneumonic effusion chronic leukocytosis Plan of Treatment: Has completed antibiotics therapy Prednisone thuy as listed stop taking Eliquis d/t hematoma anemia, and low platlets Follow up with Dr. Garzon in a week Check CBC on Friday, 05/10, Pay attention to Platlets level Elevated WBC is chronic and due to steroid and can follow up with Dr. Garzon Assessment: see above
[2024-05-08 15:19] VITALS: BP 91/54; PULSE 64; RESP 16; TEMP 37.3; O2SAT 97
[2024-05-08 15:52] VITALS: BP 143/86; PULSE 75
== END 2024-05-08 16:19 | disposition skilled nursing facility (03) | DRG 193 ==
LOC: HO.ED 09:18 → HO.EDOVER 13:03 → HO.IMC 16:07 → HO.ICU 04-30 13:55 → HO.IMC 05-03 18:09
PROVIDERS: Hospitalist; Internal Medicine Critical Care Medicine; Physician Assistant Medical; Physician Assistant Surgical; Admitting Provider Student in an Organized Health Care Education/Training Program; Emergency Provider Emergency Medicine; PCP Internal Medicine; Visit Provider Internal Medicine
DX: J18.9 Pneumonia, unspecified organism (principal); I50.31 Acute diastolic (congestive) heart failure; J96.21 Acute and chronic respiratory failure with hypoxia; R57.1 Hypovolemic shock; J91.8 Pleural effusion in other conditions classified elsewhere; D47.1 Chronic myeloproliferative disease; B37.0 Candidal stomatitis; D62 Acute posthemorrhagic anemia; E87.0 Hyperosmolality and hypernatremia; D68.32 Hemorrhagic disorder due to extrinsic circulating anticoagulants; J43.9 Emphysema, unspecified; T45.515A Adverse effect of anticoagulants, initial encounter; F17.210 Nicotine dependence, cigarettes, uncomplicated; M79.81 Nontraumatic hematoma of soft tissue; D45 Polycythemia vera; Z71.6 Tobacco abuse counseling; I25.10 Atherosclerotic heart disease of native coronary artery without angina pectoris; E78.5 Hyperlipidemia, unspecified; E87.6 Hypokalemia; I48.0 Paroxysmal atrial fibrillation; Z99.81 Dependence on supplemental oxygen; Z20.822 Contact with and (suspected) exposure to COVID-19; Z79.01 Long term (current) use of anticoagulants; Z79.899 Other long term (current) drug therapy
CPT/HCPCS: 32557; 36415; 71045; 71250; 76604; 80048; 80053; 82272; 82803; 83010; 83605; 83615; 83735; 83880; 84100; 84484; 85007; 85014; 85018; 85025; 85027; 85045; 85610; 85730; 86850; 86900; 86901; 86923; 87040; 87633; 87640; 87641; 87899; 93005; 93306; 93971; 94640; 97110; 97162; 99285; J0613; J1940; J2003; J2543; J2597; J2919; J7168; P9016; P9017; P9047; Q9957

== ENCOUNTER → 2024-04-28 08:32 | Outpatient (BNV) | payer MEDICARE, SELFPAY | PROVIDERS: Emergency Provider Emergency Medicine; Visit Provider Radiology Diagnostic Radiology | DX: J81.0 Acute pulmonary edema (principal); J90 Pleural effusion, not elsewhere classified; J98.11 Atelectasis | CPT/HCPCS: 71045 ==

== ENCOUNTER → 2024-04-28 08:32 | Outpatient (BNV) | payer MEDICARE, SELFPAY | PROVIDERS: Emergency Provider Emergency Medicine; Visit Provider Internal Medicine Cardiovascular Disease | DX: I35.0 Nonrheumatic aortic (valve) stenosis (principal); I36.1 Nonrheumatic tricuspid (valve) insufficiency; J90 Pleural effusion, not elsewhere classified; I44.0 Atrioventricular block, first degree; I45.2 Bifascicular block | CPT/HCPCS: 93010; 93306 ==

== ENCOUNTER 2024-04-28 12:55 | Outpatient (BNV) | payer MEDICARE, SELFPAY | END 2024-05-02 04:25 | PROVIDERS: Admitting Provider Student in an Organized Health Care Education/Training Program; Emergency Provider Emergency Medicine; Visit Provider Radiology Diagnostic Radiology | DX: J90 Pleural effusion, not elsewhere classified (principal) | CPT/HCPCS: 71045 ==

== ENCOUNTER 2024-04-28 12:55 | Outpatient (BNV) | payer MEDICARE, SELFPAY | END 2024-04-30 11:30 | PROVIDERS: Admitting Provider Student in an Organized Health Care Education/Training Program; Emergency Provider Emergency Medicine; Visit Provider Radiology Diagnostic Radiology | DX: J84.9 Interstitial pulmonary disease, unspecified (principal); J90 Pleural effusion, not elsewhere classified; M79.661 Pain in right lower leg; M79.81 Nontraumatic hematoma of soft tissue | CPT/HCPCS: 76604 ==

== ENCOUNTER 2024-04-28 12:55 | Outpatient (BNV) | payer MEDICARE, SELFPAY | END 2024-05-05 11:20 | PROVIDERS: Admitting Provider Student in an Organized Health Care Education/Training Program; Emergency Provider Emergency Medicine; Visit Provider Radiology Diagnostic Radiology | DX: J90 Pleural effusion, not elsewhere classified (principal) | CPT/HCPCS: 71045 ==

== ENCOUNTER → 2024-04-28 12:55 | Outpatient (BNV) | payer MEDICARE, SELFPAY | PROVIDERS: Admitting Provider Student in an Organized Health Care Education/Training Program; Emergency Provider Emergency Medicine; Visit Provider Internal Medicine Critical Care Medicine | DX: J44.1 Chronic obstructive pulmonary disease with (acute) exacerbation (principal); J96.21 Acute and chronic respiratory failure with hypoxia; J18.9 Pneumonia, unspecified organism; J90 Pleural effusion, not elsewhere classified; N17.9 Acute kidney failure, unspecified | CPT/HCPCS: 36556; 99291 ==

== ENCOUNTER → 2024-04-28 12:55 | Outpatient (BNV) | payer MEDICARE, SELFPAY | PROVIDERS: Admitting Provider Student in an Organized Health Care Education/Training Program; Emergency Provider Emergency Medicine; Visit Provider Student in an Organized Health Care Education/Training Program | DX: J96.21 Acute and chronic respiratory failure with hypoxia (principal); J90 Pleural effusion, not elsewhere classified | CPT/HCPCS: 99223 ==

== ENCOUNTER → 2024-04-28 12:55 | Outpatient (BNV) | payer MEDICARE, SELFPAY | PROVIDERS: Admitting Provider Student in an Organized Health Care Education/Training Program; Emergency Provider Emergency Medicine; Visit Provider Surgery | DX: T14.8XXA Other injury of unspecified body region, initial encounter (principal) | CPT/HCPCS: 99222 ==

== ENCOUNTER → 2024-04-28 12:55 | Outpatient (BNV) | payer MEDICARE, SELFPAY | PROVIDERS: Admitting Provider Student in an Organized Health Care Education/Training Program; Emergency Provider Emergency Medicine; Visit Provider Internal Medicine Cardiovascular Disease | DX: J96.21 Acute and chronic respiratory failure with hypoxia (principal) | CPT/HCPCS: 99223 ==

== ENCOUNTER 2024-05-24 12:06 | Inpatient (IN) | payer MEDICARE, OTHER, SELFPAY ==
[2024-05-24] VITALS (36 sets, daily range): BP systolic 62–136; BP diastolic 39–96; PULSE 70–80; RESP 15–28; TEMP 36.4–37.6; O2SAT 90–98; BMI 27.3
--- NOTE | ~2024-05-24 | XR_ITS ---
EXAMINATION: XR CHEST CLINICAL INFORMATION: hypotension COMPARISON: 05/05/2024, 05/02/2024, 04/30/2024. CT chest 04/28/2024. TECHNIQUE: AP view of the chest was obtained. FINDINGS: The cardiac, hilar, and mediastinal contours are normal. Extensive aortic calcification and tortuosity. Lungs demonstrate patchy opacities throughout both lungs. There are small pleural effusions left greater than right. There is increased retrocardiac opacity similar to the prior exam. No focal osseous or soft tissue abnormality. There are spinal and bilateral shoulder joint degenerative changes. Surgical clips seen in the epigastric region. XR/XR chest 1V IMPRESSION: 1. Bilateral patchy opacities throughout both lungs, for which multifocal pneumonia or atypical pneumonia is a consideration. Differential also includes asymmetric pulmonary edema. This appears worsened from the prior exam, particularly in the right mid and upper lung. 2. Similar increased retrocardiac opacity likely representing consolidation. Electronically signed by: Og Mcdonnell MD 05/24/2024 01:52 PM EDT
--- NOTE | 2024-05-24 12:49 | ECG_ITS ---
Test Reason : Hypotension Blood Pressure : */* mmHG Vent. Rate : 76 BPM Atrial Rate : 76 BPM P-R Int : 240 ms QRS Dur : 132 ms QT Int : 420 ms P-R-T Axes : 46 -69 83 degrees QTcB Int : 472 ms Sinus rhythm with 1st degree A-V block Left axis deviation Non-specific intra-ventricular conduction block Minimal voltage criteria for LVH, may be normal variant ( Curtis product ) Cannot rule out Septal infarct Possible Lateral infarct Abnormal ECG When compared with ECG of 28-Apr-2024 08:54, No significant changes seen Referred By: Shree Mahmood Electronically Signed By: CHRISTINA JANE
--- NOTE | 2024-05-24 12:56 | ED_ITS ---
HPI - General Adult General Chief complaint: Dyspnea Stated complaint: SNF-hx COPD, CC SOB, R/O PE Time Seen by Provider: 05/24/24 12:47 Source: patient, EMS and old records reviewed Mode of arrival: EMS Limitations: no limitations History of Present Illness ED Provider: DR. Mahmood HPI narrative: 88-year-old male with past medical history significant for COPD at 3 L supplemental oxygen at home, paroxysmal AFib on Eliquis, positive myeloproliferative disorder with chronic leukocytosis, subclavian stenosis s/p stenting, CAD with history of NSTEMI, HTN, Came in from retirement initially for a concern of hypoxia, on arrival to ED patient found to have low blood pressure of 74/50, patient's mentation is at baseline, patient was ordered 2200 cc of LR with slowly improvement of his blood pressure. Sepsis protocol was activated. Patient has MOLST form indicating DNR /DNI. Related Data Home Medications ?Medication ?Instructions ?Recorded ?Confirmed atorvastatin 20 mg tablet 20 mg PO BEDTIME 02/22/20 05/24/24 albuterol sulfate 2.5 mg/3 mL 2.5 mg inhalation Q8H PRN 02/13/24 05/24/24 (0.083 %) solution for nebulization Shortness Of Breath Or Wheezing fluticasone fur. 200 mcg-umeclid 1 inh inhalation DAILY 02/13/24 05/24/24 62.5 mcg-vilant 25 mcg inhalat.powder (Trelegy Ellipta) uorqefuyzvvj-blnyoyue-uiskaf tablet 1 tab PO DAILY 02/13/24 05/24/24 albuterol sulfate 90 mcg/actuation 1 puff inhalation Q6H PRN asthma 04/24/24 05/24/24 aerosol inhaler cyanocobalamin (vitamin B-12) 1,000 mcg PO DAILY 04/24/24 05/24/24 1,000 mcg tablet acetaminophen 325 mg tablet 650 mg PO Q6H PRN pain or fever 04/28/24 05/24/24 amiodarone 200 mg tablet 200 mg PO DAILY 04/28/24 05/24/24 bisacodyl 10 mg rectal suppository 10 mg OK BEDTIME PRN Constipation 04/28/24 05/24/24 furosemide 20 mg tablet 20 mg PO DAILY 04/28/24 05/24/24 magnesium hydroxide 400 mg/5 mL 30 ml PO Q24H PRN Constipation 04/28/24 05/24/24 oral suspension (Milk of Magnesia) sodium phosphates 19 gram-7 118 ml OK DAILY PRN Constipation 04/28/24 05/24/24 gram/118 mL enema (Fleet Enema) guaifenesin 600 mg tablet, 600 mg PO BID 05/24/24 05/24/24 extended release 12 hr ipratropium 0.5 mg-albuterol 3 mg 3 ml inhalation Q4H PRN Wheezing 05/24/24 05/24/24 (2.5 mg base)/3 mL nebulization soln pantoprazole 40 mg tablet,delayed 40 mg PO DAILY@0630 05/24/24 05/24/24 release prednisone 10 mg tablet See Taper PO DIRECTED 05/24/24 05/24/24 Allergies Allergy/AdvReac Type Severity Reaction Status Date / Time No Known Allergies Allergy Verified 05/24/24 12:44 [No Known Allergies*] Review of Systems 2 Review of Systems: All other systems are reviewed and are negative Constitutional: Reports as per HPI and Reports no additional constitutional complaints Eyes: Reports as per HPI and Reports no additional eye complaints Reports system reviewed and no additional complaints, except as documented Cardiovascular: Reports as per HPI and Reports no additional cardiovascular complaints Respiratory: Reports as per HPI and Reports no additional respiratory complaints Gastrointestinal: Reports as per HPI and Reports no additional gastrointestinal complaints Genitourinary: Reports no additional female genitourinary complaints Musculoskeletal: Reports no additional musculoskeletal complaints Skin/Breast: Reports system reviewed and no additional complaints, except as docu Psychiatric: Reports no additional psychiatric complaints Endocrine: Reports no additional endocrine complaints Hematologic/Lymphatic: Reports no additional hematologic/lymphatic complaints Allergic/Immunologic: Reports no additional allergic/immunologic complaints Reports system reviewed and no additional complaints, except as documented and Reports Abnormal speech present [facility] Past Medical History Medical History COPD (chronic obstructive pulmonary disease) Leukocytosis Polycythemia Fracture High cholesterol HTN (hypertension) Heart attack Surgical History S/P angiogram of extremity Hx of rotator cuff surgery H/O arthroscopy of shoulder Family History Family History Daughter Aortic aneurysm Social History Social History Household Members: Family Housing: House Do you presently have visiting nurse or other home services: No Patient Tobacco Use Status: Current someday Tobacco user Tobacco use type: Cigarette Cigarette Packs Per Day: 1 Second Hand Smoke Exposure: No Advance Directives: No Advance Directives Information Provided: Yes service: No Physical Exam ED Vital Signs: Vital Signs - 24 hr 05/24/24 12:42 05/24/24 12:43 05/24/24 12:44 Temperature 98.8 F Pulse Rate 72 71 71 Respiratory Rate 18 27 H 17 Blood Pressure 74/50 L 74/50 L 70/45 L Pulse Oximetry 95 91 L 92 Oxygen Delivery Method Nasal Cannula Nasal Cannula Nasal Cannula Oxygen Flow Rate 2 2 05/24/24 13:13 05/24/24 13:17 05/24/24 13:26 Temperature Pulse Rate 70 70 70 Respiratory Rate 25 H 28 H 25 H Blood Pressure 71/48 L 77/50 L 70/47 L Pulse Oximetry 98 98 96 Oxygen Delivery Method Nasal Cannula Nasal Cannula Nasal Cannula Oxygen Flow Rate 2 2 2 05/24/24 13:27 05/24/24 13:31 05/24/24 13:37 Temperature Pulse Rate 70 73 74 Respiratory Rate 26 H 28 H 23 H Blood Pressure 62/39 L 69/48 L 76/51 L Pulse Oximetry 97 97 96 Oxygen Delivery Method Nasal Cannula Nasal Cannula Nasal Cannula Oxygen Flow Rate 2 2 2 05/24/24 13:48 05/24/24 13:54 05/24/24 13:55 Temperature 99.6 F Pulse Rate 76 77 76 Respiratory Rate 26 H 20 20 Blood Pressure 85/58 L 88/60 L 88/60 L Pulse Oximetry 94 96 96 Oxygen Delivery Method Nasal Cannula Nasal Cannula Nasal Cannula with ETCO2 Oxygen Flow Rate 2 2 2 05/24/24 13:57 05/24/24 14:07 05/24/24 14:17 Temperature Pulse Rate 77 77 79 Respiratory Rate 23 H 24 H 23 H Blood Pressure 82/61 L 85/58 L 93/59 L Pulse Oximetry 94 94 93 Oxygen Delivery Method Nasal Cannula Nasal Cannula Nasal Cannula Oxygen Flow Rate 2 2 2 05/24/24 14:29 05/24/24 15:15 05/24/24 15:17 Temperature 98.9 F Pulse Rate 80 76 75 Respiratory Rate 15 23 H 25 H Blood Pressure 136/96 H 110/54 L 111/59 L Pulse Oximetry 93 93 94 Oxygen Delivery Method Nasal Cannula Nasal Cannula Nasal Cannula Oxygen Flow Rate 2 2 2 05/24/24 15:27 05/24/24 15:37 05/24/24 15:47 Temperature Pulse Rate 77 75 75 Respiratory Rate 25 H 20 22 H Blood Pressure 102/56 L 99/55 L 93/53 L Pulse Oximetry 94 94 94 Oxygen Delivery Method Nasal Cannula Nasal Cannula Nasal Cannula Oxygen Flow Rate 2 2 2 05/24/24 15:50 Temperature 99.2 F Pulse Rate 74 Respiratory Rate 16 Blood Pressure 94/48 L Pulse Oximetry 92 Oxygen Delivery Method Room Air Oxygen Flow Rate 2 BMI result Body Mass Index 27.3 Course Reevaluation(s) Reevaluation #1: Patient was given 30 cc/kg LR before labs showed hyponatremia patient already received about 1700 cc will switch LR to NS. blood pressure overall is improving, blood pressure has improved with normal saline and albumin IV, patient initially do not meet SIRS criteria (Chronic leukocytosis due to myeloproliferative disease), chest x-ray is is showing multilobar pneumonia. Patient received ceftriaxone and doxycycline. Mild hyponatremia. Time: 14:48 Medications Administered Discontinued Medications Generic Name Dose Route Start Last Admin Trade Name Freq PRN Reason Stop Dose Admin Ceftriaxone Sodium 1 gm 05/24/24 12:48 05/24/24 13:18 Ceftriaxone Sodium 1 Gm Vial IVPUSH 05/24/24 12:49 1 gm ONCE ONE Administration Lactated Ringer's 2,229 mls @ 2,229 mls/hr 05/24/24 12:48 05/24/24 14:17 Lr 30 ml/kg infuse over 1 hr (2229 ml) 05/24/24 13:47 Infused IV Infusion .Q1H ONE Sodium Chloride 500 mls @ 500 mls/hr 05/24/24 14:15 05/24/24 15:17 Ns IV 05/24/24 15:14 Infused .Q1H CEE Infusion Doxycycline Hyclate 100 mg/ 250 mls @ 166.67 mls/hr 05/24/24 14:16 05/24/24 14:42 Sodium Chloride IV 05/24/24 15:45 166.67 mls/hr ONCE ONE Administration Albumin Human 50 mls @ 100 mls/hr 05/24/24 14:25 05/24/24 15:20 Kedbumin 25 % IV 05/24/24 14:54 Infused ONCE ONE Infusion Medical Decision Making Differential Diagnosis Differential Diagnoses: The differential diagnosis associated with the presentation includes ( Pneumonia, severe sepsis, pneumothorax, pleural effusion, CHF, upper respiratory viral infection, COPD exacerbation, ACS, hypovolemia, electrolyte derangement, severe anemia.) Admission/Observation Consideration of admission/observation: Escalation of care including admission/observation considered Consult Healthcare Provider Management of the patient was discussed with: Finish Specialist ( Dr. Juarez.) Lab Data MDM Lab Attestation statement: I reviewed the patient's lab results. 05/24/24 13:07 05/24/24 13:07 Labs: Lab Results 05/24/24 05/24/24 05/24/24 Range/Units 13:03 13:07 13:11 WBC 13.5 H (4.8-10.8) X10*3/uL RBC 4.55 L (4.60-5.80) X10*6/uL Hgb 10.0 L (14.0-18.0) g/dl Hct 34.0 L (42.0-52.0) % MCV 74.7 L (80.0-98.0) fL MCH 22.0 L (27.0-33.0) pg MCHC 29.4 L (31.0-36.0) g/dl RDW 31.2 H (11.0-16.0) % Plt Count 104 L (160-400) X10*3/uL MPV Not Reportable Immature Gran % (Auto) 0.6 H (0.0-0.4) % Neut % (Auto) 80.6 H (45-73) % Lymph % (Auto) 6.2 L (20-40) % Phelps % (Auto) 7.1 (2-11) % Eos % (Auto) 5.4 H (0-4) % Baso % (Auto) 0.1 (0-2) % Lymph # (Auto) 0.8 L (1.2-4.9) X10*3/uL Phelps # (Auto) 1.0 (0.1-1.2) X10*3/uL Eos # (Auto) 0.7 H (0.0-0.4) X10*3/uL Baso # (Auto) 0.0 (0.0-0.2) X10*3/uL Abs Immat Gran (auto) 0.08 H (0.00-0.03) X10*3/uL Absolute Neuts (auto) 10.9 H (2.0-8.3) x10*3/uL Absolute Nucleated RBC 0.000 (0.0-0.012) X10*3/uL Nucleated RBC % (auto) 0.0 (0.0-0.2) /100WBC PT 19.4 H (10.9-12.4) SEC INR 1.7 H (0.9-1.1) VBG pH 7.38 (7.32-7.43) VBG pCO2 54 mmHg VBG pO2 33 mmHg VBG HCO3 32 H (22-26) mmol/L VBG O2 Saturation 51.0 % VBG Base Excess 6.1 mmol/L Sodium 128 L (135-145) mmol/L Potassium 4.8 D (3.3-5.1) mmol/L Chloride 92 L (96-108) mmol/L Carbon Dioxide 29 (22-29) mmol/L Anion Gap 12 (12-20) BUN 11 (9-16) mg/dL Creatinine 0.90 (0.5-1.4) mg/dL Estim Creat Clear Calc 53.4 Estimated GFR > 60 Random Glucose 88 (60-115) mg/dL Lactic Acid 1.3 (0.5-2.0) mmol/L Calcium 7.8 L (8.4-10.2) mg/dL Total Bilirubin 0.8 (0.0-1.0) mg/dL Direct Bilirubin 0.3 (0.0-0.5) mg/dL AST 38 H (5-37) U/L ALT 30 (0-40) U/L Alkaline Phosphatase 98 (39-117) U/L Troponin I High Sens 4.4 D (<3.5-35.0) ng/L B-Natriuretic Peptide 148 H (<100) pg/mL Total Protein 5.8 L (6.5-8.0) g/dL Albumin 3.2 L (3.5-5.0) g/dL Lipase 5 L (8-78) U/L Influenza Type A (PCR) NEGATIVE (Negative) Influenza Type B (PCR) NEGATIVE (Negative) RSV RNA Qual (PCR) NEGATIVE (Negative) SARS-CoV-2 RNA (RT-PCR) NEGATIVE (Negative) Independent Interpretation I performed an independent interpretation of an: Plain X-Ray ( chest:. Bilateral patchy opacities throughout both lungs, for which multifocal pneumonia or atypical pneumonia is a consideration. Differential also includes asymmetric pulmonary edema. This appears worsened from the prior exam, particularly in the right mid and upper lung. 2. Similar increased) Radiology Impression Discussion of test interpretation with radiology: I have reviewed the radiologist's reading. Critical Care Time Critical Care Time Critical Care Time: Yes Total Critical Care Time: 60 Attestation: The patient was critically ill with a high probability of imminent or life- threatening deterioration. I spent greater than 30 minutes of discontinuous time evaluating the patient, delivering critical care at the bedside, discussing evaluating data with consultants. Critical care time does not include time spent performing separately billable procedures or teaching. Time spent performing critical care was 60 minutes. Discharge Plan Discharge Clinical Impression: Acute hypotension, Pneumonia Patient Disposition: Admitted As Inpatient Print Language: Indonesian
[2024-05-24 13:15] LABS: Basophils Percent Auto 0.1 % (0-2); Eosinophils Absolute Auto 0.7 X10*3/uL (0.0-0.4); Eosinophils Percent Auto 5.4 % (0-4); Imm Gran Abs Auto 0.08 X10*3/uL (0.00-0.03); Imm Gran Pct Auto 0.6 % (0.0-0.4); Lymphocytes Absolute Auto 0.8 X10*3/uL (1.2-4.9); Lymphocytes Percent Auto 6.2 % (20-40); Mean Corpuscular HGB Conc 29.4 g/dl (31.0-36.0); Mean Corpuscular Volume 74.7 fL (80.0-98.0); Monocytes Percent Auto 7.1 % (2-11); Neutrophils Absolute Auto 10.9 x10*3/uL (2.0-8.3); Neutrophils Percent Auto 80.6 % (45-73); Red Blood Count 4.55 X10*6/uL (4.60-5.80); Red Cell Distribution Width 31.2 % (11.0-16.0)
[2024-05-24 13:15] LABS: INTERNATIONAL NORM RATIO 1.7 (0.9-1.1); Prothrombin Time 19.4 SEC (10.9-12.4)
[2024-05-24] MEDS: cefTRIAXone sodium 1 GM VIAL IVPUSH (13:18)
[2024-05-24 13:19] LABS: Platelet Count 104 X10*3/uL (160-400); White Blood Count 13.5 X10*3/uL (4.8-10.8)
[2024-05-24] MEDS: LACTATED RINGERS 2229 ML IV (13:19)
[2024-05-24 13:20] LABS: VBG Base Excess 6.1 mmol/L; VBG HCO3 32 mmol/L (22-26); VBG pCO2 54 mmHg; VBG pH 7.38 (7.32-7.43); VBG pO2 33 mmHg
[2024-05-24 13:26] LABS: Venous Blood Gas Refer to POC result
[2024-05-24 13:31] LABS: Lactic Acid 1.3 mmol/L (0.5-2.0)
[2024-05-24 13:32] LABS: Troponin-I High Sensitivity 4.4 ng/L (<3.5-35.0)
[2024-05-24 13:35] LABS: B Type Natriuretic Peptide 148 pg/mL (<100)
[2024-05-24 13:38] LABS: Alanine Aminotransferase 30 U/L (0-40); Albumin Level 3.2 g/dL (3.5-5.0); Anion Gap 12 (12-20); Aspartate Amino Transferase 38 U/L (5-37); Bilirubin Direct 0.3 mg/dL (0.0-0.5); Bilirubin Total 0.8 mg/dL (0.0-1.0); Blood Urea Nitrogen 11 mg/dL (9-16); Calcium 7.8 mg/dL (8.4-10.2); Carbon Dioxide 29 mmol/L (22-29); Chloride 92 mmol/L (96-108); Creatinine Clr Calc Pharmacy 53.4; Estimated Glomerular Filt Rate > 60; Glucose Random 88 mg/dL (60-115); Lipase 5 U/L (8-78); Potassium 4.8 mmol/L (3.3-5.1); Sodium 128 mmol/L (135-145); Total Protein 5.8 g/dL (6.5-8.0)
[2024-05-24 13:43] LABS: Alkaline Phosphatase 98 U/L (39-117)
[2024-05-24 14:11] LABS: Influenza A PCR NEGATIVE (Negative); Influenza B PCR NEGATIVE (Negative); Resp Syncy Virus RNA Qual PCR NEGATIVE (Negative); SARS COV2 PCR INHOUSE NEGATIVE (Negative)
[2024-05-24] MEDS: 0.9 % Sodium Chloride 500 ML IV (14:17)
[2024-05-24] MEDS: Doxycycline Hyclate 100 MG in 0.9 % Sodium Chloride 250 ML 166.67 MG IV (14:42)
--- OUTSIDE RECORDS SUMMARY | 2024-05-24 14:47 | XMS_ITS | Encounter Summary ---
Author Organization [facility] Address [address] [place] [address] Care Team Providers Care Painter Helper Name Role Phone Mark Chance MD Primary Care Provider [phone] Encounter Details Date Type Department Care Team (Late st Contact Info) Description 04/28/2024 Lab Requisition [facility] - Main Lab [address] [facility] [place] [address] Mark Chance MD [address] [place], [place] [id number] Pneumonia, unspecified organism; Chronic obstructive pulmonary disease, [...] on file documented as of this encounter Procedures Procedure Name Priority Date/Time Associated Diagnosis Comments LIPID PANEL WITH REFLEX TO DIRECT LDL Routine 04/28/2024 5:40 AM EST Pneumonia, unspecified organism Chronic obstructive pulmonary disease, unspecified (CMS/HCC) Hyperlipidemia, unspecified Vitamin D deficiency, unspecified Vitamin B12 deficiency anemia, unspecified VITAMIN D 25 HYDROXY Routine 04/28/2024 5:40 AM EST Pneumonia, unspecified organism Chronic obstructive pulmonary disease, unspecified (CMS/HCC) Hyperlipidemia, unspecified Vitamin D deficiency, unspecified Vitamin B12 deficiency anemia, unspecified COMPLETE BLOOD COUNT Routine 04/28/2024 5:40 AM EST Pneumonia, unspecified organism Chronic obstructive pulmonary disease, unspecified (CMS/HCC) Hyperlipidemia, unspecified Vitamin D deficiency, unspecified Vitamin B12 deficiency anemia, unspecified FOLATE Routine 04/28/2024 5:40 AM EST Pneumonia, unspecified organism Chronic obstructive pulmonary disease, unspecified (CMS/HCC) Hyperlipidemia, unspecified Vitamin D deficiency, unspecified Vitamin B12 deficiency anemia, unspecified VITAMIN B12 Routine 04/28/2024 5:40 AM EST Pneumonia, unspecified organism Chronic obstructive pulmonary disease, unspecified (CMS/HCC) Hyperlipidemia, unspecified Vitamin D deficiency, unspecified Vitamin B12 deficiency anemia, unspecified COMPREHENSIVE METABOLIC PANEL Routine 04/28/2024 5:40 AM EST Pneumonia, unspecified organism Chronic obstructive pulmonary disease, unspecified (CMS/HCC) Hyperlipidemia, unspecified Vitamin D deficiency, unspecified Vitamin B12 deficiency anemia, unspecified documented in this encounter Results * Folate (04/28/2024 5:40 AM EST) Folate 17.0 2.8 - 17.0 ng/ml LAB CHEMISTRY METHOD 04/28/2024 3:32 PM EST [facility] Blood Venous blood specimen / Unknown Venipuncture / Unknown 04/28/2024 5:40 AM EST 04/28/2024 9:54 AM EST us Mark Chance MD LAB BLOOD ORDERABLES Final Resul t [facility] [address] [place] [address], * (ABNORMAL) Vitamin D 25 hydroxy (04/28/2024 5:40 AM EST) Vit D, 25-Hydroxy 27.6(L) 30.0 - 80.0 ng/mL LAB CHEMISTRY METHOD 04/28/2024 3:03 PM EST [facility] Blood Venous blood specimen / Unknown Venipuncture / Unknown 04/28/2024 5:40 AM EST 04/28/2024 9:54 AM EST us Mark Chance MD LAB BLOOD ORDERABLES Final Resul t Performing Organization Address [facility]/ZIP Co de Phone Number [facility] [address] [place] [address], [place] [phone] * (ABNORMAL) Vitamin B12 (04/28/2024 5:40 AM EST) [facility] Vitamin B-12 1,889(H) 250 - 900 pcg/mL LAB CHEMISTRY METHOD 04/28/2024 3:32 PM EST [facility] Blood Venous blood specimen / Unknown Venipuncture / Unknown 04/28/2024 5:40 AM EST 04/28/2024 9:54 AM EST us Mark Chance MD LAB BLOOD ORDERABLES Final Resul t Performing Organization Address [facility]/ZIP Co de Phone Number [facility] [address] [place] [address], [place] [phone] * (ABNORMAL) Lipid panel with reflex to direct LDL (04/28/2024 5:40 AM EST) [facility] Cholesterol 149 0 - 200 mg/dL LAB CHEMISTRY METHOD 04/28/2024 2:57 PM [facility] Triglycerides 174(H) 0 - 150 mg/dL LAB CHEMISTRY METHOD 04/28/2024 2:57 PM [facility] HDL 62 >=40 mg/dL LAB CHEMISTRY METHOD 04/28/2024 2:57 PM [facility] LDL Calculated 52 0 - 100 mg/dL LAB CHEMISTRY METHOD 04/28/2024 2:57 PM [facility] VLDL Cholesterol Leroy 34.8 mg/dL LAB CHEMISTRY METHOD 04/28/2024 2:57 PM [facility] Non HDL Chol. (LDL+VLDL) 87 <145 mg/dL LAB CHEMISTRY METHOD 04/28/2024 2:57 PM [facility] Chol/HDL Ratio 2.4 0.0 - 4.4 LAB CHEMISTRY METHOD 04/28/2024 2:57 PM [facility] Blood Venous blood specimen / Unknown Venipuncture / Unknown 04/28/2024 5:40 AM EST 04/28/2024 9:54 AM EST us Mark Chance MD LAB BLOOD ORDERABLES Final Resul t [facility] [address] [place] [address], [place] [phone] * (ABNORMAL) Comprehensive metabolic panel (04/28/2024 5:40 AM EST) Sodium 143 133 - 145 mmol/L LAB CHEMISTRY METHOD 04/28/2024 3:27 PM [facility] Potassium 4.0 3.5 - 5.5 mmol/L LAB CHEMISTRY METHOD 04/28/2024 3:27 PM [facility] Chloride 103 96 - 110 mmol/L LAB CHEMISTRY METHOD 04/28/2024 3:27 PM [facility] CO2 26 21 - 32 mmol/L LAB CHEMISTRY METHOD 04/28/2024 3:27 PM [facility] Anion Gap 14(H) 3 - 11 LAB CHEMISTRY METHOD 04/28/2024 3:27 PM [facility] Glucose 15(LL) 70 - 100 mg/dL LAB CHEMISTRY METHOD 04/28/2024 3:27 PM [facility] BUN 24 5 - 25 mg/dL LAB CHEMISTRY METHOD 04/28/2024 3:27 PM [facility] Creatinine 1.39(H) 0.70 - 1.30 mg/dL LAB CHEMISTRY METHOD 04/28/2024 3:27 PM [facility] eGFR 49(L) >=60 mL/min/1. 73m2 LAB CHEMISTRY METHOD 04/28/2024 3:27 PM [facility] Comment:Calculation based on the??Chronic Kidney Disease Epidemiology Collaboration (CKD-EPI) equation refit??without adjustment for race. BUN/Creatinine Ratio 17.3 LAB CHEMISTRY METHOD 04/28/2024 3:27 PM [facility] Calcium 8.8 8.5 - 10.5 mg/dL LAB CHEMISTRY METHOD 04/28/2024 3:27 PM [facility] AST (SGOT) 35 10 - 42 unit/L LAB CHEMISTRY METHOD 04/28/2024 3:27 PM [facility] ALT (SGPT) 37 10 - 60 unit/L LAB CHEMISTRY METHOD 04/28/2024 3:27 PM [facility] Alkaline Phosphatase 139(H) 42 - 121 unit/L LAB CHEMISTRY METHOD 04/28/2024 3:27 PM [facility] Total Protein 7.4 6.0 - 8.0 g/dL LAB CHEMISTRY METHOD 04/28/2024 3:27 PM [facility] Albumin 3.8 3.2 - 5.0 g/dL LAB CHEMISTRY METHOD 04/28/2024 3:27 PM [facility] Total Bilirubin 0.5 0.0 - 1.4 mg/dL LAB CHEMISTRY METHOD 04/28/2024 3:27 PM [facility] Blood Venous blood specimen / Unknown Venipuncture / Unknown 04/28/2024 5:40 AM EST 04/28/2024 9:54 AM EST us Mark Chance MD LAB BLOOD ORDERABLES Final Resul t [facility] [address] [place] [address], * (ABNORMAL) Complete blood count (04/28/2024 5:40 AM EST) [facility] WBC 37.3(H) 4.8 - 10.8 K/mcL LAB HEMETOLOGY METHOD 04/28/2024 11:44 AM [facility] RBC 6.50(H) 4.50 - 5.50 M/mcL LAB HEMETOLOGY METHOD 04/28/2024 11:44 AM [facility] Hemoglobin 10.7(L) 13.5 - 17.5 g/dL LAB HEMETOLOGY METHOD 04/28/2024 11:44 AM [facility] Hematocrit 41.8(L) 42.0 - 54.0 % LAB HEMETOLOGY METHOD 04/28/2024 11:44 AM [facility] MCV 63.9(L) 79.0 - 98.0 FL LAB HEMETOLOGY METHOD 04/28/2024 11:44 AM [facility] MCH 16.4(L) 27.0 - 32.0 pcg LAB HEMETOLOGY METHOD 04/28/2024 11:44 AM [facility] MCHC 25.6(L) 32.0 - 37.0 g/dL LAB HEMETOLOGY METHOD 04/28/2024 11:44 AM [facility] RDW 29.5(H) 11.0 - 15.0 % LAB HEMETOLOGY METHOD 04/28/2024 11:44 AM [facility] Platelets 353 130 - 400 K/mcL LAB HEMETOLOGY METHOD 04/28/2024 11:44 AM [facility] MPV LAB HEMETOLOGY METHOD 04/28/2024 11:44 AM [facility] Comment:Not Measured NRBC 0.3 <1.0 % LAB HEMETOLOGY METHOD 04/28/2024 11:44 AM [facility] NRBC Absolute 0.11(H) <0.10 K/mcL LAB HEMETOLOGY METHOD 04/28/2024 11:44 AM EST [facility] Blood Venous blood specimen / Unknown Venipuncture / Unknown 04/28/2024 5:40 AM EST 04/28/2024 9:54 AM EST Mark Chance MD LAB BLOOD ORDERABLES Final Resul t [facility] [address] [place] [address], documented in this encounter Visit Diagnoses Diagnosis Pneumonia, unspecified organism Chronic obstructive pulmonary disease, unspecified Hyperlipidemia, unspecified Vitamin D deficiency, unspecified Vitamin B12 deficiency anemia, unspecified documented in this encounter Care Teams Painter Helper Relationship Specialty Start Date End Date Mark Chance MD [address] [place] [address] [address] [place] [address] PCP - General Geriatric Medicine 04/28/24 documented as of this encounter
--- OUTSIDE RECORDS SUMMARY | 2024-05-24 14:47 | XMS_ITS | Encounter Summary ---
Author Organization [facility] Address [address] [place] [address] Care Team Providers Care Manager House Name Role Phone Mark Chance MD Primary Care Provider [phone] Encounter Details Date Type Department Care Team (Late st Contact Info) Description 05/14/2024 Lab Requisition [facility] - Main Lab [address] [place] [address] Taye Kc MD [address] [place] [address] Essential (primary) hypertension; Muscle weakness (generalized); Hyperlipidemia, unspecified Social History Tobacco Use Types Packs/Day [...] Procedure Name Priority Date/Time Associated Diagnosis Comments COMPLETE BLOOD COUNT Routine 05/14/2024 5:42 AM EDT Essential (primary) hypertension Muscle weakness (generalized) Hyperlipidemia, unspecified BASIC METABOLIC PANEL Routine 05/14/2024 5:42 AM EDT Essential (primary) hypertension Muscle weakness (generalized) Hyperlipidemia, unspecified documented in this encounter Results * (ABNORMAL) Basic metabolic panel (05/14/2024 5:42 AM EDT) Sodium 135 133 - 145 mmol/L LAB CHEMISTRY METHOD 05/14/2024 2:31 PM EDT [facility] Potassium 4.8 3.5 - 5.5 mmol/L LAB CHEMISTRY METHOD 05/14/2024 2:31 PM EDT [facility] Chloride 97 96 - 110 mmol/L LAB CHEMISTRY METHOD 05/14/2024 2:31 PM EDT [facility] CO2 31 21 - 32 mmol/L LAB CHEMISTRY METHOD 05/14/2024 2:31 PM [facility] Anion Gap 7 3 - 11 LAB CHEMISTRY METHOD 05/14/2024 2:31 PM EDT [facility] Glucose 28(LL) 70 - 100 mg/dL LAB CHEMISTRY METHOD 05/14/2024 2:31 PM [facility] BUN 15 5 - 25 mg/dL LAB CHEMISTRY METHOD 05/14/2024 2:31 PM [facility] Creatinine 0.93 0.70 - 1.30 mg/dL LAB [facility]STR[facility] eGFR 79 >=60 mL/min/1. 73m2 LAB CHEMISTRY METHOD 05/14/2024 2:31 PM EDT [facility] Comment:Calculation based on the??Chronic Kidney Disease Epidemiology Collaboration (CKD-EPI) equation refit??without adjustment for race. BUN/Creatinine Ratio 16.1 LAB CHEMISTRY METHOD 05/14/2024 2:31 PM [facility] Calcium 8.0(L) 8.5 - 10.5 mg/dL LAB CHEMISTRY METHOD 05/14/2024 2:31 PM EDT [facility] Blood Venous blood specimen / Unknown Venipuncture / Unknown 05/14/2024 5:42 AM EDT 05/14/2024 11:22 AM EDT us Taye Kc MD LAB BLOOD ORDERABLES Final R esult [facility] LAB [address] [place] [address], * (ABNORMAL) Complete blood count (05/14/2024 5:42 AM EDT) [facility] WBC 18.5(H) 4.8 - 10.8 K/mcL LAB HEMETOLOGY METHOD 05/14/2024 11:52 AM [facility] RBC 4.50 4.50 - 5.50 M/mcL LAB HEMETOLOGY METHOD 05/14/2024 11:52 AM [facility] Hemoglobin 9.6(L) 13.5 - 17.5 g/dL LAB HEMETOLOGY METHOD 05/14/2024 11:52 AM [facility] Hematocrit 34.7(L) 42.0 - 54.0 % LAB HEMETOLOGY METHOD 05/14/2024 11:52 AM [facility] MCV 77.1(L) 79.0 - 98.0 FL LAB HEMETOLOGY METHOD 05/14/2024 11:52 AM [facility] MCH 21.3(L) 27.0 - 32.0 pcg LAB HEMETOLOGY METHOD 05/14/2024 11:52 AM [facility] MCHC 27.7(L) 32.0 - 37.0 g/dL LAB HEMETOLOGY METHOD 05/14/2024 11:52 AM [facility] RDW 34.8(H) 11.0 - 15.0 % LAB HEMETOLOGY METHOD 05/14/2024 11:52 AM [facility] Platelets 70(L) 130 - 400 K/mcL LAB HEMETOLOGY METHOD 05/14/2024 11:52 AM [facility] Comment:previously verified by slide MPV LAB HEMETOLOGY METHOD 05/14/2024 11:52 AM [facility] Comment:Not Measured NRBC 0.1 <1.0 % LAB HEMETOLOGY METHOD 05/14/2024 11:52 AM EDT [facility] NRBC Absolute 0.02 <0.10 K/mcL LAB HEMETOLOGY METHOD 05/14/2024 11:52 AM EDT [facility] Blood Venous blood specimen / Unknown Venipuncture / Unknown 05/14/2024 5:42 AM EDT 05/14/2024 11:22 AM EDT us Taye Kc MD LAB BLOOD ORDERABLES Final R esult [facility] [address] [place] [address], documented in this encounter Visit Diagnoses Diagnosis Essential (primary) hypertension Unspecified essential hypertension Muscle weakness (generalized) Hyperlipidemia, unspecified documented in this encounter Care Teams Manager House Relationship Specialty Start Date End Date Mark Chance MD [address] [place] [address] [address] [place] [address] PCP - General Geriatric Medicine 04/28/24 documented as of this encounter
--- OUTSIDE RECORDS SUMMARY | 2024-05-24 14:47 | XMS_ITS | Clinical Summary ---
Author Organization [address] Address [address] [place] [address] Phone Care Team Providers Care Milking Worker Name Role Phone Mark Chance MD Primary Care Provider [phone] Encounters Date Type Department Care Team Description 05/24/2024 Lab Requisition [facility] Lab [address] [place] [phone] Taye Kc MD Anemia, unspecified; Chronic obstructive pulmonary disease with (acute) lower respiratory infection (CMS/HCC); Wheezing; Acute respiratory failure with hypoxia (CMS/HCC); Chronic obstructive pulmonary disease, unspecified (CMS/HCC); Essential (primary) hypertension 05/14/2024 Lab Requisition [facility] Lab [address] [place] [phone] Taye Kc MD Essential (primary) hypertension; Muscle weakness (generalized); Hyperlipidemia, unspecified 05/10/2024 Lab Requisition [facility] Lab [address] [place] [phone] Taye Kc MD Elevated white blood cell count, unspecified; Respiratory failure, unspecified, unspecified whether with hypoxia or hypercapnia (CMS/HCC); Hypoxemia 05/04/2024 Lab Requisition [facility] Lab [address] [place] [phone] Mark Chance MD Essential (primary) hypertension; Pneumonia, unspecified organism; Chronic obstructive pulmonary disease, unspecified (CMS/HCC) 04/28/2024 Lab Requisition [facility] Lab [address] [place] [phone] Mark Chance MD Pneumonia, unspecified organism; Chronic [...] 08/30/1954 Zoster Vaccines (1 of 2) 08/30/1985 RSV Immunization Patients 60+ Years Old (1 - 1-dose 75+ series) 08/30/2010 Pneumococcal Vaccine: 50+ Years (2 of 2 - PCV) 11/25/2015 11/24/2014 COVID-19 Vaccine (3 - season) 2023 05/21/2021, 04/23/2021 Influenza Vaccine (#1) 2023 , 12/15/2020, 02/03/2020, Additional history exists Depression Screening 04/28/2024 Falls Risk Assessment 04/28/2024 Medicare Annual Wellness Visit 04/28/2024 Social Influencers of Health Screening 04/28/2024 Hypertension/CHF/CAD Annual BMP Blood Test 05/14/2025 05/14/2024, 05/10/2024, 04/28/2024 Cholesterol Screening (Lipid Panel) 04/28/2029 04/28/2024 HIB Vaccines Aged Out No longer eligi [...] to complete this topic RSV Immunization Patients Under 20 months Aged Out No longer eligible based on patient's age to complete this topic Varicella Vaccines Aged Out No longer eligible based on patient's age to complete this topic Procedures Procedure Name Priority Date/Time Associated Diagnosis Comments B-TYPE NATRIURETIC PEPTIDE STAT 05/24/2024 10:12 AM EDT Anemia, unspecified Chronic obstructive pulmonary disease with (acute) lower respiratory infection Wheezing Acute respiratory failure with hypoxia Chronic obstructive pulmonary disease, unspecified Essential (primary) hypertension COMPLETE BLOOD COUNT STAT 05/24/2024 10:12 AM EDT Anemia, unspecified Chronic obstructive pulmonary disease with (acute) lower respiratory infection Wheezing Acute respiratory failure with hypoxia Chronic obstructive pulmonary disease, unspecified Essential (primary) hypertension BASIC METABOLIC PANEL Routine 05/14/2024 5:42 AM EDT Essential (primary) hypertension Muscle weakness (generalized) Hyperlipidemia, unspecified COMPLETE BLOOD COUNT Routine 05/14/2024 5:42 AM EDT Essential (primary) hypertension Muscle weakness (generalized) Hyperlipidemia, unspecified COMPREHENSIVE METABOLIC PANEL Routine 05/10/2024 10:34 AM EDT Elevated white blood cell count, unspecified Respiratory failure, unspecified, unspecified whether with hypoxia or hypercapnia (CMS/HCC) Hypoxemia COMPLETE BLOOD COUNT Routine 05/10/2024 10:34 AM EDT Elevated white blood cell count, unspecified Respiratory failure, unspecified, unspecified whether with hypoxia or hypercapnia (CMS/HCC) Hypoxemia FOLATE Routine 04/28/2024 5:40 AM EST Pneumonia, [...] deficiency, unspecified Vitamin B12 deficiency anemia, unspecified LIPID PANEL WITH REFLEX TO DIRECT LDL [...] deficiency, unspecified Vitamin B12 deficiency anemia, unspecified from Last 3 Months Results * (ABNORMAL) Complete blood count (05/24/2024 10:12 AM EDT) Only the most recent of4 resultswithin the time period is included. WBC 13.6(H) 4.8 - 10.8 K/mcL LAB HEMETOLOGY METHOD 05/24/2024 11:05 AM [facility] RBC 4.70 4.50 - 5.50 M/mcL LAB HEMETOLOGY METHOD 05/24/2024 11:05 AM [facility] Hemoglobin 10.3(L) 13.5 - 17.5 g/dL LAB HEMETOLOGY METHOD 05/24/2024 11:05 AM [facility] Hematocrit 36.6(L) 42.0 - 54.0 % LAB HEMETOLOGY METHOD 05/24/2024 11:05 AM [facility] MCV 77.4(L) 79.0 - 98.0 FL LAB HEMETOLOGY METHOD 05/24/2024 11:05 AM EDT [facility] MCH 21.8(L) 27.0 - 32.0 pcg LAB HEMETOLOGY [facility] MCHC 28.1(L) 32.0 - 37.0 g/dL LAB HEMETOLOGY METHOD 05/24/2024 11:05 AM EDT [facility] RDW 31.3(H) 11.0 - 15.0 % LAB HEMETOLOGY METHOD 05/24/2024 11:05 AM T [facility] Platelets 101(L) 130 - 400 K/mcL LAB HEMETOLOGY METHOD 05/24/2024 11:05 AM [facility] MPV LAB HEMETOLOGY METHOD 05/24/2024 11:05 AM EDT [facility] Comment:Not Measured NRBC 0.0 <1.0 % LAB HEMETOLOGY METHOD 05/24/2024 11:05 AM [facility] NRBC Absolute 0.00 <0.10 K/mcL LAB HEMETOLOGY METHOD 05/24/2024 11:05 AM [facility] Blood Venous blood specimen / Unknown Venipuncture / Unknown 05/24/2024 10:12 AM EDT 05/24/2024 10:53 AM EDT Taye Kc MD LAB BLOOD ORDERABLES Final R esult [facility] [address] [place] [address], * (ABNORMAL) B-type natriuretic peptide (05/24/2024 10:12 AM EDT) BNP 103(H) <=100 pcg/mL LAB CHEMISTRY METHOD 05/24/2024 11:45 AM EDT [facility] Blood Venous blood specimen / Unknown Venipuncture / Unknown 05/24/2024 10:12 AM EDT 05/24/2024 10:53 AM EDT Taye Kc MD LAB BLOOD ORDERABLES Final R esult [facility] [address] [place] [address], * (ABNORMAL) Basic metabolic panel (05/14/2024 5:42 AM EDT) Sodium 135 133 - 145 mmol/L LAB CHEMISTRY METHOD 05/14/2024 2:31 PM [facility] Potassium 4.8 3.5 - 5.5 mmol/L LAB CHEMISTRY METHOD 05/14/2024 2:31 PM [facility] Chloride 97 96 - 110 mmol/L LAB CHEMISTRY METHOD 05/14/2024 2:31 PM [facility] CO2 31 21 - 32 mmol/L LAB CHEMISTRY METHOD 05/14/2024 2:31 PM [facility] Anion Gap 7 3 - 11 LAB CHEMISTRY METHOD 05/14/2024 2:31 PM [facility] Glucose 28(LL) 70 - 100 mg/dL LAB CHEMISTRY METHOD 05/14/2024 2:31 PM [facility] BUN 15 5 - 25 mg/dL LAB CHEMISTRY METHOD 05/14/2024 2:31 PM [facility] Creatinine 0.93 0.70 - 1.30 mg/dL LAB CHEMISTRY METHOD 05/14/2024 2:31 PM [facility] eGFR 79 >=60 mL/min/1. 73m2 LAB CHEMISTRY METHOD 05/14/2024 2:31 PM [facility] Comment:Calculation based on the??Chronic Kidney Disease Epidemiology Collaboration (CKD-EPI) equation refit??without adjustment for race. BUN/Creatinine Ratio 16.1 LAB CHEMISTRY METHOD 05/14/2024 2:31 PM T [facility] Calcium 8.0(L) 8.5 - 10.5 mg/dL LAB CHEMISTRY METHOD 05/14/2024 2:31 PM [facility] Blood Venous blood specimen / Unknown Venipuncture / Unknown 05/14/2024 5:42 AM EDT 05/14/2024 11:22 AM EDT us Taye Kc MD LAB BLOOD ORDERABLES Final R esult [facility] [address] [place] [address], [place] [phone] * (ABNORMAL) Comprehensive metabolic panel (05/10/2024 10:34 AM EDT) Only the most recent of2 resultswithin the time period is included. Sodium 136 133 - 145 mmol/L LAB CHEMISTRY METHOD 05/10/2024 2:08 PM [facility] Potassium 3.8 3.5 - 5.5 mmol/L LAB CHEMISTRY METHOD 05/10/2024 2:08 PM [facility] Chloride 97 96 - 110 mmol/L LAB CHEMISTRY METHOD 05/10/2024 2:08 PM [facility] CO2 29 21 - 32 mmol/L LAB CHEMISTRY METHOD 05/10/2024 2:08 PM [facility] Anion Gap 10 3 - 11 LAB CHEMISTRY METHOD 05/10/2024 2:08 PM [facility] Glucose 60(L) 70 - 100 mg/dL LAB CHEMISTRY METHOD 05/10/2024 2:08 PM [facility] BUN 15 5 - 25 mg/dL LAB CHEMISTRY METHOD 05/10/2024 2:08 PM [facility] Creatinine 0.84 0.70 - 1.30 mg/dL LAB CHEMISTRY METHOD 05/10/2024 2:08 PM T [facility] eGFR 84 >=60 mL/min/1. 73m2 LAB CHEMISTRY METHOD 05/10/2024 2:08 PM [facility] Comment:Calculation based on the??Chronic Kidney Disease Epidemiology Collaboration (CKD-EPI) equation refit??without adjustment for race. BUN/Creatinine Ratio 17.9 LAB CHEMISTRY METHOD 05/10/2024 2:08 PM EDT [facility] Calcium 7.7(L) 8.5 - 10.5 mg/dL LAB CHEMISTRY METHOD 05/10/2024 2:08 PM [facility] AST (SGOT) 23 10 - 42 unit/L LAB CHEMISTRY METHOD 05/10/2024 2:08 PM [facility] ALT (SGPT) 22 10 - 60 unit/L LAB CHEMISTRY METHOD 05/10/2024 2:08 PM [facility] Alkaline Phosphatase 89 42 - 121 unit/L LAB CHEMISTRY METHOD 05/10/2024 2:08 PM [facility] Total Protein 5.2(L) 6.0 - 8.0 g/dL LAB CHEMISTRY METHOD 05/10/2024 2:08 PM [facility] Albumin 2.8(L) 3.2 - 5.0 g/dL LAB CHEMISTRY METHOD 05/10/2024 2:08 PM [facility] Total Bilirubin 1.5(H) 0.0 - 1.4 mg/dL LAB CHEMISTRY METHOD 05/10/2024 2:08 PM [facility] Blood Venous blood specimen / Unknown Venipuncture / Unknown 05/10/2024 10:34 AM EDT 05/10/2024 12:12 PM EDT us Taye Kc MD LAB BLOOD ORDERABLES Final R esult [facility] [address] [place] [address], [place] [phone] * (ABNORMAL) Lipid panel with reflex to direct LDL (04/28/2024 5:40 AM EST) Cholesterol 149 0 - 200 mg/dL LAB CHEMISTRY METHOD 04/28/2024 2:57 PM EST [facility] Triglycerides 174(H) 0 - 150 mg/dL LAB CHEMISTRY METHOD 04/28/2024 2:57 PM EST [facility] HDL 62 >=40 mg/dL LAB CHEMISTRY METHOD 04/28/2024 2:57 PM EST [facility] LDL Calculated 52 0 - 100 mg/dL LAB CHEMISTRY METHOD 04/28/2024 2:57 PM [facility] VLDL Cholesterol Leroy 34.8 mg/dL LAB CHEMISTRY METHOD 04/28/2024 2:57 PM [facility] Non HDL Chol. (LDL+VLDL) 87 <145 mg/dL LAB CHEMISTRY METHOD 04/28/2024 2:57 PM [facility] Chol/HDL Ratio 2.4 0.0 - 4.4 LAB CHEMISTRY METHOD 04/28/2024 2:57 PM [facility] Blood Venous blood specimen / Unknown Venipuncture / Unknown 04/28/2024 5:40 AM EST 04/28/2024 9:54 AM EST us Mark Chance MD LAB BLOOD ORDERABLES Final Resul t [facility] [address] [place] [address], [place] [phone] * (ABNORMAL) Vitamin D 25 hydroxy (04/28/2024 5:40 AM EST) Vit D, 25-Hydroxy 27.6(L) 30.0 - 80.0 ng/mL LAB CHEMISTRY METHOD 04/28/2024 3:03 PM EST [facility] Blood Venous blood specimen / Unknown Venipuncture / Unknown 04/28/2024 5:40 AM EST 04/28/2024 9:54 AM EST us Mark Chance MD LAB BLOOD ORDERABLES Final Resul t Performing Organization Address [facility]/ZIP Co de Phone Number [facility] [address] [place] [address], [place] [phone] * Folate (04/28/2024 5:40 AM EST) Pathologist [facility] [place] Folate 17.0 2.8 - 17.0 ng/ml LAB CHEMISTRY METHOD 04/28/2024 3:32 PM EST [facility] Blood Venous blood specimen / Unknown Venipuncture / Unknown 04/28/2024 5:40 AM EST 04/28/2024 9:54 AM EST us Mark Chance MD LAB BLOOD ORDERABLES Final Resul t Performing Organization Address [facility] de Phone Number [facility] [address] [place] [address], [place] [phone] * (ABNORMAL) Vitamin B12 (04/28/2024 5:40 AM EST) Pathologist [facility] [place] Vitamin B-12 1,889(H) 250 - 900 pcg/mL LAB CHEMISTRY METHOD 04/28/2024 3:32 PM EST [facility] Blood Venous blood specimen / Unknown Venipuncture / Unknown 04/28/2024 5:40 AM EST 04/28/2024 9:54 AM EST us Mark Chance MD LAB BLOOD ORDERABLES Final Resul t Performing Organization Address City/[facility]/ZIP Co de Phone Number [facility] [address] [place] [address], [place] [phone] from Last 3 Months Insurance MEDICARE [facility] SAF[employer] NET Care Teams Milking Worker Relationship Specialty Start Date End Date Mark Chance MD [address] [place] [address] [address] [place] [address] PCP - General Geriatric Medicine 04/28/24
--- OUTSIDE RECORDS SUMMARY | 2024-05-24 14:47 | XMS_ITS | Encounter Summary ---
Author Organization [facility] Address [address] [place] [address] Care Team Providers Care Chopper Feeder Name Role Phone Stephanie Gillespie Primary Care Provider [phone] Encounter Details Date Type Department Care Team (Late st Contact Info) Description 05/09/2020 Orders Only [facility] [address] ACT [address] [place] [address] Hernan Keen MD [address] [place] [address] Social History Tobacco Use Types Packs/Day Years [...] on filedocumented in this encounter Care Teams Chopper Feeder Relationship Specialty Start Date End Date Stephanie Gillespie [address] [address] PCP - General Internal Medicine 04/17/20 documented as of this encounter
--- OUTSIDE RECORDS SUMMARY | 2024-05-24 14:47 | XMS_ITS ---
Author Organization Aris Garzon III, MD Address [address] [place] [address] Care Team Providers Care Home Care Aide Name Role Phone Dominga LÓPEZ, Stephanie Primary Care Provider Aris Jeffries [phone] REASON FOR VISIT follow up Encounters Encounter Location Date Provider Diagnosis Aris Garzon III, MD [address] [place] [address] [place] [address] 02/27/2024 Aris Garzon Plan Of Treatment No Information Progress Notes * Ketan SHELTONOB:1935 (88 yo M)Acc No.[id number]:02/27/2024 Progress Notes Patient:?Wyatt SHELTON Provider:?Aris Garzon MD :1935???Age:88 Y???Sex:Male Mati e:02/27/2024 Address:[address] [place], [place] [phone] Pcp:Stephanie Orr MD Subjective: * Chief Complaints: [...] * Provider:?Aris Garzon MD Date:?04/2024 Generated for Printi ng/Faxing/eTransmitting on:?05/24/2024 02:47 PM EDT
--- OUTSIDE RECORDS SUMMARY | 2024-05-24 14:47 | XMS_ITS | Encounter Summary ---
Author Organization [facility] Address [address] [place] [id number] Care Team Providers Care Roustabout Name Role Phone Mark Chance MD Primary Care Provider [phone] Encounter Details Date Type Department Care Team (Late st Contact Info) Description 05/04/[address] [facility] - Main Lab [address] [facility] [place] [address] Mark Chance MD [address] [facility] [place], [place] [id number] Essential (primary) hypertension; Pneumonia, unspecified organism; Chronic obstructive pulmonary disease, unspecified (CMS/[facility]) Social History Tobacco Use Types Packs/Day Years Used Date Smoking Tobacco: Never Assessed Sex and Gender Information Value Date Recorded Sex Assigned at Not on file Legal Sex Male 8:27 PM EST Gender Identity Not on file Sexual Orientation Not on file documented as of this encounter Plan of Treatment Not on file documented as of this encounter Visit Diagnoses Diagnosis Essential (primary) hypertension Unspecified essential hypertension Pneumonia, unspecified organism Chronic obstructive pulmonary disease, unspecified documented in this encounter Care Teams Roustabout Relationship Specialty Start Date End Date Mark Chance MD [address] [place] [address] PCP - General Geriatric Medicine 04/28/24 documented as of this encounter
--- OUTSIDE RECORDS SUMMARY | 2024-05-24 14:47 | XMS_ITS | Encounter Summary ---
Author Organization [facility] Address [address] [place] [address] Care Team Providers Care Chamfering Machine Operator Name Role Phone Mark Chance MD Primary Care Provider [phone] Encounter Details Date Type Department Care Team (Late st Contact Info) Description 05/10/2024 Lab Requisition [facility] - Main Lab [address] [facility] [place] [address] Taye Kc MD [address] [place] [address] Elevated white blood cell count, unspecified; Respiratory failure, unspecified, unspecified whether with hypoxia or hypercapnia (CMS/HCC); Hypoxemia Social History Tobacco Use Types Packs/Day Years [...] Associated Diagnosis Comments COMPLETE BLOOD COUNT Routine 05/10/2024 10:34 AM EDT Elevated white blood cell count, unspecified Respiratory failure, unspecified, unspecified whether with hypoxia or hypercapnia (CMS/HCC) Hypoxemia COMPREHENSIVE METABOLIC PANEL Routine 05/10/2024 10:34 AM EDT Elevated white blood cell count, unspecified Respiratory failure, unspecified, unspecified whether with hypoxia or hypercapnia (CMS/HCC) Hypoxemia documented in this encounter Results * (ABNORMAL) Comprehensive metabolic panel (05/10/2024 10:34 AM EDT) [facility] Signature Sodium 136 133 - 145 mmol/L LAB CHEMISTRY METHOD 05/10/2024 2:08 PM [facility] Potassium 3.8 3.5 - 5.5 mmol/L LAB CHEMISTRY METHOD 05/10/2024 2:08 PM [facility] Chloride 97 96 - 110 mmol/L LAB CHEMISTRY METHOD 05/10/2024 2:08 PM [facility] CO2 29 21 - 32 mmol/L LAB CHEMISTRY METHOD 05/10/2024 2:08 PM [facility] Anion Gap 10 3 - 11 LAB CHEMISTRY METHOD 05/10/2024 2:08 PM [facility] Glucose 60(L) 70 - 100 mg/dL LAB CHEMISTRY METHOD 05/10/2024 2:08 PM [facility] BUN 15 5 - 25 mg/dL LAB CHEMISTRY METHOD 05/10/2024 2:08 PM [facility] Creatinine 0.84 0.70 - 1.30 mg/dL LAB CHEMISTRY METHOD 05/10/2024 2:08 PM [facility] eGFR 84 >=60 mL/min/1. 73m2 LAB CHEMISTRY METHOD 05/10/2024 2:08 PM [facility] Comment:Calculation based on the??Chronic Kidney Disease Epidemiology Collaboration (CKD-EPI) equation refit??without adjustment for race. BUN/Creatinine Ratio 17.9 LAB CHEMISTRY METHOD 05/10/2024 2:08 PM [facility] Calcium 7.7(L) 8.5 - 10.5 mg/dL LAB CHEMISTRY METHOD 05/10/2024 2:08 PM [facility] AST (SGOT) 23 10 - 42 unit/L LAB CHEMISTRY METHOD 05/10/2024 2:08 PM [facility] ALT (SGPT) 22 10 - 60 unit/L LAB CHEMISTRY METHOD 05/10/2024 2:08 PM [facility] Alkaline Phosphatase 89 42 - 121 unit/L LAB CHEMISTRY METHOD 05/10/2024 2:08 PM EDT [facility] Total Protein 5.2(L) 6.0 - 8.0 g/dL LAB CHEMISTRY METHOD 05/10/2024 2:08 PM EDT [facility] Albumin 2.8(L) 3.2 - 5.0 g/dL LAB CHEMISTRY METHOD 05/10/2024 2:08 PM EDT [facility] Total Bilirubin 1.5(H) 0.0 - 1.4 mg/dL LAB CHEMISTRY METHOD 05/10/2024 2:08 PM EDT [facility] Blood Venous blood specimen / Unknown Venipuncture / Unknown 05/10/2024 10:34 AM EDT 05/10/2024 12:12 PM EDT us Taye Kc MD LAB BLOOD ORDERABLES Final R esult [facility] [address] [place] [address], * (ABNORMAL) Complete blood count (05/10/2024 10:34 AM EDT) WBC 22.1(H) 4.8 - 10.8 K/mcL LAB HEMETOLOGY METHOD 05/10/2024 2:55 PM EDT [facility] RBC 4.00(L) 4.50 - 5.50 M/mcL LAB HEMETOLOGY METHOD 05/10/2024 2:55 PM EDT [facility] Hemoglobin 8.4(L) 13.5 - 17.5 g/dL LAB HEMETOLOGY METHOD 05/10/2024 2:55 PM EDT [facility] Hematocrit 29.8(L) 42.0 - 54.0 % LAB HEMETOLOGY METHOD 05/10/2024 2:55 PM EDT [facility] MCV 75.3(L) 79.0 - 98.0 FL LAB HEMETOLOGY METHOD 05/10/2024 2:55 PM EDT [facility] MCH 21.2(L) 27.0 - 32.0 pcg LAB HEMETOLOGY METHOD 05/10/2024 2:55 PM EDT [facility] MCHC 28.2(L) 32.0 - 37.0 g/dL LAB HEMETOLOGY METHOD 05/10/2024 2:55 PM EDT [facility] RDW 35.3(H) 11.0 - 15.0 % LAB HEMETOLOGY METHOD 05/10/2024 2:55 PM EDT [facility] Platelets 71(L) 130 - 400 K/mcL LAB HEMETOLOGY METHOD 05/10/2024 2:55 PM EDT [facility] Comment:Large platelets seen . Reviewed by slide MPV LAB HEMETOLOGY METHOD 05/10/2024 2:55 PM EDT [facility] Comment:Not Measured NRBC 0.0 <1.0 % LAB HEMETOLOGY METHOD 05/10/2024 2:55 PM EDT [facility] NRBC Absolute 0.00 <0.10 K/mcL LAB HEMETOLOGY METHOD 05/10/2024 2:55 PM EDT [facility] Blood Venous blood specimen / Unknown Venipuncture / Unknown 05/10/2024 10:34 AM EDT 05/10/2024 12:12 PM EDT us Taye Kc MD LAB BLOOD ORDERABLES Final R esult [facility] [address] [place] [address], documented in this encounter Visit Diagnoses Diagnosis Elevated white blood cell count, unspecified Respiratory failure, unspecified, unspecified whether with hypoxia or hypercapnia Hypoxemia documented in this encounter Care Teams Chamfering Machine Operator Relationship Specialty Start Date End Date Mark Chance MD [address] [place] [address] [address] [place] [address] PCP - General Geriatric Medicine 04/28/24 documented as of this encounter
--- OUTSIDE RECORDS SUMMARY | 2024-05-24 14:47 | XMS_ITS | Encounter Summary ---
Author Organization [facility] Address [address] [place] [address] Care Team Providers Care Apprentice Painter Brush Name Role Phone Stephanie Gillespie Primary Care Provider [phone] Encounter Details Date Type Department Care Team (Late st Contact Info) Description 04/28/2020 Orders Only [facility] 2 Rad ACT 1 [address] [place] [address] Hernan Keen MD [address] [place] [address] Social History Tobacco Use Types Packs/Day Years [...] on filedocumented in this encounter Care Teams Apprentice Painter Brush Relationship Specialty Start Date End Date Stephanie Gillespie [address] [address] PCP - General Internal Medicine 04/17/20 documented as of this encounter
--- OUTSIDE RECORDS SUMMARY | 2024-05-24 14:47 | XMS_ITS ---
Author Organization Aris Garzon III, MD Address [address] [facility] [place] [address] Care Team Providers Care Project Drilling Engineer Name Role Phone Dominga LÓPEZ, [facility] Primary Care Provider Aris Jeffries [phone] REASON FOR VISIT Admitted to Rehab Encounters Encounter Location Date Provider Diagnosis Aris Garzon III, MD [address] [place] [address] [address] [place] [address] 04/28/2024 Aris Garzon Plan Of Treatment No Information Progress Notes * Ketan VUOB:1935 (88 yo M)Acc No.[id number]:04/28/2024 Patient:?Valentin VUmarcellus :1935???Age:88 Y???Sex:Male Address:[address] [place] [address], [phone] * true * Date:? Generated for Tee veloz/Shanell/eTransmitting on:?05/24/2024 02:47 PM EDT
--- OUTSIDE RECORDS SUMMARY | 2024-05-24 14:48 | XMS_ITS | Clinical Summary ---
Author Organization [facility] Address [address] [place] [address] Care Team Providers Care Otr Refrigerated Cdl Truck Driver Name Role Phone Stephanie Gillespie Primary Care Provider [phone] Allergies No known active allergies Medications atorvastatin [...] this topic Medical Devices Implanted Type Area Forest Scientist Device Identifier Shelf Expiration Date Model / Serial / Lot Patch Carotid Peripatch [id number] Xenosure - [id number] Implanted:Qty: 1 on 06/19/2020 by Bo Brooks MD at [facility] Implant Right: Grokori CARROLLTRE VASCULAR 02/20/2026 E0.8P8 / / [id number] Description:Soaked in 500 ml of NACL for 2 mins prior to implanting. NACL lot # [id number]. Exp date April 2023 Stent Vascular Balloon Expandable [id number] [id number] Viabahn - [id number] - [id number] Implanted:Qty: 1 on 06/19/2020 by Bo Brooks MD at [facility] Stent Right: Groin W L GORE 09/21/2022 [id number] / [id number] / Description:iliac [place] [address] [place] [address] Advance Directives * Full Code (Latest Code Status on File) Date Activated Date Inactivated Comments 06/19/2020 10:39 AM 06/20/2020 5:25 PM Care Teams Otr Refrigerated Cdl Truck Driver Relationship Specialty Start Date End Date Stephanie Gillespie [address] [address] PCP - General Internal Medicine 04/17/20
--- OUTSIDE RECORDS SUMMARY | 2024-05-24 14:48 | XMS_ITS | Referral Summary ---
Author Organization [facility] Address [address] [place] [address] Care Team Providers Care Warehouse Pricing And Inventory Clerk Name Role Phone Stephanie Gillespie Primary Care Provider [phone] Allergies No known active allergies Medications atorvastatin [...] on file Medical Devices Implanted Type Area Reimbursement Director Device Identifier Shelf Expiration Date Model / Serial / Lot Patch Carotid Peripatch [id number] Xenosure - [id number] Implanted:Qty: 1 on 06/19/2020 by Bo Brooks MD at [facility] Implant Right: Groin LEMAITRE VASCULAR 02/20/2026 E0.8P8 / / [id number] Description:Soaked in 500 ml of NACL for 2 mins prior to implanting. NACL lot # [id number]. Exp date April 2023 Stent Vascular Balloon Expandable [id number] 8fr Viabahn - [id number] - [id number] Implanted:Qty: 1 on 06/19/2020 by Bo Brooks MD at [facility] Stent Right: Sera GARVIN 09/21/2022 [id number] / [id number] / Description:iliac Insurance [facility] Advance Directives * Full Code (Latest Code Status on File) Date Activated Date Inactivated Comments 06/19/2020 10:39 AM 06/20/2020 5:25 PM Care Teams Warehouse Pricing And Inventory Clerk Relationship Specialty Start Date End Date Stephanie Gillespie [address] [address] PCP - General Internal Medicine 04/17/20
--- OUTSIDE RECORDS SUMMARY | 2024-05-24 14:48 | XMS_ITS ---
Author Organization Aris Garzon III, MD Address [address] [place] [address] [place] [address] Care Team Providers Care Shift Foreman Name Role Phone Dominga LÓPEZ, [facility] Primary Care Provider Aris Jeffries [phone] Allergies Allergen (clinical drug ingredient) Drug/Non Drug [...] Date Provider Diagnosis Aris Garzon III, MD [address] [place] [address] [place] [address] 04/16/2024 Aris Garzon B12 deficiency E53.8 Assessments [...] Notes * Ketan SHELTONOB:1935 (88 yo M)Acc No.[id number]:04/16/2024 Progress Notes Patient:?Valentin SHELTONmarcellus Provider:?Aris Garzon MD :1935???Age:88 Y???Sex:Male Mati e:04/16/2024 Address:[address] [place] [address] MELANIE Mandujano [id number] Pcp:Stephanie Orr MD Subjective: * Chief Complaints: [...] ankle , right rotator cuff surgery 03/1990, [facility] vein surgery 05/2020. * Hospitalization/Major Diagno [...] been for many years. He lives in [place], [place]. He is retired. He consumes about [...] Garzon MD Date:?03/28 Generated for Tee veloz/Shanell/Rodriitting on:?05/24/2024 02:47 PM EDT History and Physical Notes * HPI (History [...]
--- OUTSIDE RECORDS SUMMARY | 2024-05-24 14:48 | XMS_ITS | Encounter Summary ---
Author Organization [facility] Address [address] [place] [address] Care Team Providers Care Corsage Maker Name Role Phone Mark Chance MD Primary Care Provider Encounter Details Date Type Department Care Team (Late st Contact Info) Description 05/24/2024 Lab Requisition [facility] - Main Lab [address] [facility] [place] [address] Taye Kc MD [address] [place] [address] Anemia, unspecified; Chronic obstructive pulmonary disease with (acute) lower respiratory infection (CMS/HCC); Wheezing; Acute respiratory failure with hypoxia (CMS/HCC); Chronic obstructive pulmonary disease, unspecified (CMS/HCC); Essential (primary) hypertension Social History Tobacco Use Types Packs/Day Years [...] Date/Time Associated Diagnosis Comments COMPLETE BLOOD COUNT STAT 05/24/2024 10:12 AM EDT Anemia, unspecified Chronic obstructive pulmonary disease with (acute) lower respiratory infection Wheezing Acute respiratory failure with hypoxia Chronic obstructive pulmonary disease, unspecified Essential (primary) hypertension B-TYPE NATRIURETIC PEPTIDE STAT 05/24/2024 10:12 AM EDT Anemia, unspecified Chronic obstructive pulmonary disease with (acute) lower respiratory infection Wheezing Acute respiratory failure with hypoxia Chronic obstructive pulmonary disease, unspecified Essential (primary) hypertension documented in this encounter Results * (ABNORMAL) B-type natriuretic peptide (05/24/2024 10:12 AM EDT) BNP 103(H) <=100 pcg/mL LAB CHEMISTRY METHOD 05/24/2024 11:[address] [facility] Blood Venous blood specimen / Unknown Venipuncture / Unknown 05/24/2024 10:12 AM EDT 05/24/2024 10:53 AM EDT Taye Kc MD LAB BLOOD ORDERABLES Final R esult [facility] [address] [place] [address], * (ABNORMAL) Complete blood count (05/24/2024 10:12 AM EDT) WBC 13.6(H) 4.8 - 10.8 K/mcL LAB HEMETOLOGY METHOD 05/24/2024 11:05 AM [facility] RBC 4.70 4.50 - 5.50 M/mcL LAB HEMETOLOGY METHOD 05/24/2024 11:05 AM [facility] Hemoglobin 10.3(L) 13.5 - 17.5 g/dL LAB HEMETOLOGY METHOD 05/24/2024 11:05 AM [facility] Hematocrit 36.6(L) 42.0 - 54.0 % LAB HEMETOLOGY METHOD 05/24/2024 11:05 AM [facility] MCV 77.4(L) 79.0 - 98.0 FL LAB HEMETOLOGY METHOD 05/24/2024 11:05 AM [facility] MCH 21.8(L) 27.0 - 32.0 pcg LAB HEMETOLOGY METHOD 05/24/2024 11:05 AM [facility] MCHC 28.1(L) 32.0 - 37.0 g/dL LAB HEMETOLOGY METHOD 05/24/2024 11:[address] [facility] RDW 31.3(H) 11.0 - 15.0 % LAB HEMETOLOGY METHOD 05/24/2024 11:[address] [facility] Platelets 101(L) 130 - 400 K/mcL LAB HEMETOLOGY METHOD 05/24/2024 11:[address] [facility] MPV LAB HEMETOLOGY METHOD 05/24/2024 11:[address] [facility] Comment:Not Measured NRBC 0.0 <1.0 % LAB HEMETOLOGY METHOD 05/24/2024 11:[address] [facility] NRBC Absolute 0.00 <0.10 K/mcL LAB HEMETOLOGY METHOD 05/24/2024 11:[address] [facility] Blood Venous blood specimen / Unknown Venipuncture / Unknown 05/24/2024 10:12 AM EDT 05/24/2024 10:53 AM EDT Taye Kc MD LAB BLOOD ORDERABLES Final R esult [facility] [address] [place] [address], documented in this encounter Visit Diagnoses Diagnosis Anemia, unspecified Chronic obstructive pulmonary disease with (acute) lower respiratory infection Wheezing Acute respiratory failure with hypoxia Chronic obstructive pulmonary disease, unspecified Essential (primary) hypertension Unspecified essential hypertension documented in this encounter Care Teams Corsage Maker Relationship Specialty Start Date End Date Mark Chance MD [address] [place] [address] [address] [place] [address] PCP - General Geriatric Medicine 04/28/24 documented as of this encounter
--- OUTSIDE RECORDS SUMMARY | 2024-05-24 14:48 | XMS_ITS | Patient Health Record ---
Author Organization Aris Garzon III, MD Address [address] [facility] [place] [address] Care Team Providers Care Production Sorter Name Role Phone Dominga LÓPEZ, [facility] Primary Care Provider Aris Jeffries [phone] Allergies Allergen (clinical drug ingredient) Drug/Non Drug [...] Problem Status W/U Status Risk Notes Problem 13258737 Hyperlipidemia (E78.5) Active confirmed Comprehensive bloodwork with a fasting profile has been ordered. These will be forwarded to primary care. Problem Polycythemia vera (060892197) Polycythemia vera (D45) Active confirmed He has been well controlled without need for aggressive treatment. Compressive blood work has been ordered to be done in the next few days. Problem 683400545 B12 deficiency (E53.8) Active confirmed Comprehensive blood work is not available. It was ordered with a vitamin B12 level. He will continue on supplementation . 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 I offered to do so today but he declined wanting to stay on the current dose. Problem 20287105 Coronary artery disease (I25.10) Active confirmed He denies a ny recent angina and has had no hospitalization s. He has been compliant wwith his medication. Problem 65190941 Tobacco dependence (F17.200) Active confirmed I strongly encourage smoking cessation. We have discussed several strategies for this. He continues to smoke up packages of cigarettes daily. Problem 438729468 Major depression (F32.9) Active confirmed He is no longer depressed and says he feels well. However, he has missed several appointments, which is a long-standing pattern with him and his family. Problem 70975273 COPD (chronic obstructive pulmonary disease) (J44.9) Active confirmed He is breat cielo room air comfortably. He spoke with me on the phone at length. He was continuing her current medications. I strongly recommended smoking cessation. Problem 358243776 Pulmonary nodule (R91.1) Active confirmed Problem 59383986 Colonic polyp (K63.5) Active confirmed Problem 666300802 Peripheral arterial disease (I73.9) Active confirmed 2 weeks ago, he had vascular surgery to reverse mass to the office on the right groin for occlusive disease. He now has what appears to be a deep venous thrombosis right lower extremity below the knee. He was sent for an ultrasound of the emergency room. Problem 154395215 Macrocytosis (D75.89) Active confirmed Compprehensive blood work witth a CBC has been ordered. Problem 092838182 Rotator cuff tea r (M75.100) Active confirmed The PSA has fallen from 5.9-3.0. If we'll be followed carefully without treatment. Problem 981676075 Atrial tachycardia (I47.1) Active confirmed He denies any episodes of tachycardia recently. He controlled sinus rhythm today. Problem Benign prostatic hypertrophy without outflow obstruction (171507766) Benign prostatic hyperplasia, unspecified whether lower urinary tract symptoms present (N40.0) Active confirmed His prostatism is stable twice a night. We reviewed lifestyle modifications accordingly made to reduce nocturia. Encounters Encounter Location Date Provider Diagnosis Aris Garzon III, MD [address] [place] [address] [address] [place] [address], [place] [address] 04/28/2024 Aris Garzon Plan Of Treatment Pending Test Test Name Order Date PROFILE, FASTING (COMPREHENSIVE METABOLI C) 06/24/2022 PROFILE, FASTING (COMPREHENSIVE METABOLI C) 03/26/2023 PROFILE, RANDOM (COMPREHENSIVE METABOLIC ) 12/15/2020 PROFILE, RANDOM (COMPREHENSIVE METABOLIC ) 02/03/2020 PROFILE, RANDOM (COMPREHENSIVE METABOLIC ) 09/15/2020 PROFILE, RANDOM (COMPREHENSIVE METABOLIC ) 07/12/2019 PROFILE, RANDOM (COMPREHENSIVE METABOLIC ) 07/04/2020 PROFILE, RANDOM (COMPREHENSIVE METABOLIC ) 07/12/2021 PROFILE, RANDOM (COMPREHENSIVE METABOLIC ) 03/23/2021 FERRITIN 07/12/2021 VITAMIN B12 AND FOLATE 03/23/2021 VITAMIN B12 AND FOLATE 09/15/2020 VITAMIN B12 AND FOLATE 07/04/2020 B12 07/12/2021 B12 12/15/2020 B12 02/03/2020 B12 07/12/2019 B12 06/24/2022 PSA, TOTAL 03/23/2021 PSA, TOTAL 12/15/2020 PSA, TOTAL 09/15/2020 PSA, TOTAL 07/12/2019 PSA, TOTAL 03/26/2023 PSA, TOTAL 06/24/2022 CBC w DIFF 06/24/2022 CBC w DIFF 07/04/2020 CBC w DIFF 10/21/2019 CBC w DIFF 05/05/2019 CBC w DIFF 07/12/2021 CBC w DIFF 02/03/2020 CBC w DIFF 03/23/2021 CBC w DIFF 12/15/2020 CBC w DIFF 09/15/2020 CBC w DIFF 07/12/2019 SED RATE (ESR) 03/26/2023 ALPHA-FETOPROTEIN,TUMOR MARKER CBC WITH AUTO DIFF 03/26/2023 Ferritin 03/26/2023 Ferritin 12/15/2020 Lipid Panel 06/24/2022 Lipid Panel 03/26/2023 Vitamin B12 03/26/2023 CT lung screening 06/24/2022 Insurance Providers Payer Name Payer Address Payer Phone Subscriber Number Group Number Insured Name Patient Relationship to Insured Coverage Start Date Coverage End Date [employer] P[employer]ED [address] [place] [address] [phone] [id number] Wyatt Shelton Self - patient is the insured MEDICARE NGS [address] [place] [phone] [id number] Wyatt Shelton Self - patient is the [...]
[2024-05-24] MEDS: Albumin Human 25 % 50 ML 100 ML IV (14:50)
--- NOTE | 2024-05-24 15:45 | PC.NURSE ---
Plan for [facility] admission per Dr. Mahmood & CINDY Camacho.
--- NOTE | 2024-05-24 15:56 | PHA.MEDREC ---
Pharmacy Consult ? Medication Reconciliation Pharmacy has completed the medication reconciliation.list obtained from [place]
--- NOTE | 2024-05-24 16:14 | P.HPHOSP_ITS ---
History of Present Illness Date of Service: 05/24/24 Attending physician on admission: Bartolo Fields Chief Complaint: hypoxia per snf staff 88-year-old male with a PMH significant for COPD iwth chronic hypoxemic respiratory failure on 3L, subclavian stenosis s/p stenting, HTN, CAD w/ hx of NSTEMI in 12/2016, s/p cardiac catheterization w/o stenting, and current smoker smoking 1 cigarette per day presented to the ED from SNF after SNF reportedly found the patient at 85% on 2L and were concerned about PE. Per EMS O2 90-93%. The patient reports he is comfortable but does acknowledge occassionally productive cough. Denies fevers, chills, sob, wheezing, chest pain. On arrival hypotensive with BP 62/39. Given concerns for sepsis, 30cc/kg ordered and administered without recurrence of hypotension. He also received addl 500ml LR and albumin x1. Was also tachypneic but vitals otherwise normal. Has a chronic leukocytosis with WBC 13.5- improved from priors. Remainder of hematology studies stable. Renal function baseline, electrolyte levels significant for sodium of 128 and chloride 92. BNP 148. UA not indicative of infection. Chest x-ray shows multiple bilateral opacities consistent with multifocal pneumonia versus atypical pneumonia. In the ED has received IV fluids as mentioned above, IV ceftriaxone, azithromycin. Review of Systems 2 Review of Systems: Yes all other systems are reviewed and are negative [facility] Medical History Polycythemia vera COPD (chronic obstructive pulmonary disease) Leukocytosis Polycythemia Fracture High cholesterol HTN (hypertension) Heart attack Family History Daughter Aortic aneurysm Surgical History S/P angiogram of extremity Hx of rotator cuff surgery H/O arthroscopy of shoulder Social History Household Members: Family Housing: House Do you presently have visiting nurse or other home services: No Patient Tobacco Use Status: Current someday Tobacco user Tobacco use type: Cigarette Cigarette Packs Per Day: 1 Second Hand Smoke Exposure: No Advance Directives: No Advance Directives Information Provided: Yes service: No Meds Allergies Allergy/AdvReac Type Severity Reaction Status Date / Time No Known Allergies Allergy Verified 05/24/24 12:44 [No Known Allergies*] Active Medications: Current Medications Acetaminophen (Acetaminophen 325 Mg Tablet) 650 mg PO Q6H PRN PRN Reason: Pain, Mild 1-3,fever,headache Calcium Carbonate (Calcium Carbonate 750 Mg Tab.Chew) 750 mg PO Q4H PRN PRN Reason: Heartburn Lactated Ringer's (Lr) 1,000 mls @ 100 mls/hr IVCONT .Q10H CEE Cefepime HCl (Maxipime) 2 gm in 50 mls @ 100 mls/hr IV Q8H CEE Magnesium Hydroxide (Milk Of Magnesia 30 Ml Oral.Susp) 30 ml PO DAILY PRN PRN Reason: Constipation Melatonin (Melatonin 3 Mg Tablet) 6 mg PO BEDTIME PRN PRN Reason: Insomnia Pharmacy Consult (Consult Rx Vancomycin Dosing) 1 each MISCELLANE DAILY PRN PRN Reason: Consult order Sodium Chloride (0.9 % Sodium Chloride Flush 3 Ml Syringe) 3 ml IVFLUSH QSHIFT [facility] Home Medications ?Medication ?Instructions ?Recorded ?Confirmed ?Last Taken ?Type atorvastatin 20 mg tablet 20 mg PO BEDTIME 02/22/20 05/24/24 02/13/24 09:00 History albuterol sulfate 2.5 mg/3 mL 2.5 mg inhalation Q8H PRN 02/13/24 05/24/24 02/13/24 09:00 History (0.083 %) solution for nebulization Shortness Of Breath Or Wheezing fluticasone fur. 200 mcg-umeclid 1 inh inhalation DAILY 02/13/24 05/24/24 02/13/24 09:00 History 62.5 mcg-vilant 25 mcg inhalat.powder (Trelegy Ellipta) lzwbcwdpcrgj-jaclwmzo-ckaoyt tablet 1 tab PO DAILY 02/13/24 05/24/24 02/13/24 09:00 History albuterol sulfate 90 mcg/actuation 1 puff inhalation Q6H PRN asthma 04/24/24 05/24/24 Unknown History aerosol inhaler cyanocobalamin (vitamin B-12) 1,000 mcg PO DAILY 04/24/24 05/24/24 Unknown History 1,000 mcg tablet acetaminophen 325 mg tablet 650 mg PO Q6H PRN pain or fever 04/28/24 05/24/24 Unknown History amiodarone 200 mg tablet 200 mg PO DAILY 04/28/24 05/24/24 Unknown History bisacodyl 10 mg rectal suppository 10 mg DC BEDTIME PRN Constipation 04/28/24 05/24/24 Unknown History furosemide 20 mg tablet 20 mg PO DAILY 04/28/24 05/24/24 Unknown History magnesium hydroxide 400 mg/5 mL 30 ml PO Q24H PRN Constipation 04/28/24 05/24/24 Unknown History oral suspension (Milk of Magnesia) sodium phosphates 19 gram-7 118 ml DC DAILY PRN Constipation 04/28/24 05/24/24 Unknown History gram/118 mL enema (Fleet Enema) guaifenesin 600 mg tablet, 600 mg PO BID 05/24/24 05/24/24 Unknown History extended release 12 hr ipratropium 0.5 mg-albuterol 3 mg 3 ml inhalation Q4H PRN Wheezing 05/24/24 05/24/24 Unknown History (2.5 mg base)/3 mL nebulization soln pantoprazole 40 mg tablet,delayed 40 mg PO DAILY@0630 05/24/24 05/24/24 Unknown History release prednisone 10 mg tablet See Taper PO DIRECTED 05/24/24 05/24/24 Unknown History Physical Exam 2 Vital Signs and Narrative: Vital Signs: Last Vital Signs Temp 99.0 F 05/24/24 16:12 Pulse 76 05/24/24 16:12 Resp 22 H 05/24/24 16:12 BP 104/65 05/24/24 16:12 Pulse Ox 95 05/24/24 16:12 O2 Del Method Nasal Cannula 05/24/24 16:12 O2 Flow Rate 2 05/24/24 16:12 Oxygen Flow Rate 2 05/24/24 12:42 BMI result Body Mass Index 27.3 Constitutional - Awake and Alert, No apparent distress Eyes - PERRLA, EOMI Cardiovascular - S1S2, RRR, No edema Respiratory - Normal lung expansion, Normal respiratory effort, No respiratory distress, overall diminished but with bilateral lower lobe rhonchi with scattered wheezing Gastrointestinal - NT / ND; +BS; No rebound or guarding Extremities - no calf tenderness bilaterally, no swelling Skin - Warm/Dry. Very dry mucosa and lips cracked Neurological - Alert & oriented x3 Psychological - Appropriate affect Results Labs 05/24/24 13:07 05/24/24 13:07 Labs: Laboratory Results - last 24 hr 05/24/24 05/24/24 05/24/24 13:03 13:07 13:11 MCV 74.7 L MCH 22.0 L MCHC 29.4 L RDW 31.2 H Plt Count 104 L MPV Not Reportable Immature Gran % (Auto) 0.6 H Neut % (Auto) 80.6 H Lymph % (Auto) 6.2 L [place] % (Auto) 7.1 Eos % (Auto) 5.4 H Baso % (Auto) 0.1 Lymph # (Auto) 0.8 L [place] # (Auto) 1.0 Eos # (Auto) 0.7 H Baso # (Auto) 0.0 Abs Immat Gran (auto) 0.08 H Absolute Neuts (auto) 10.9 H Absolute Nucleated RBC 0.000 Nucleated RBC % (auto) 0.0 PT 19.4 H INR 1.7 H VBG pH 7.38 VBG pCO2 54 VBG pO2 33 VBG HCO3 32 H VBG O2 Saturation 51.0 VBG Base Excess 6.1 Anion Gap 12 Estim Creat Clear Calc 53.4 Estimated GFR > 60 Random Glucose 88 Lactic Acid 1.3 Calcium 7.8 L Total Bilirubin 0.8 Direct Bilirubin 0.3 AST 38 H ALT 30 Alkaline Phosphatase 98 B-Natriuretic Peptide 148 H Total Protein 5.8 L Albumin 3.2 L Lipase 5 L Influenza Type A (PCR) NEGATIVE Influenza Type B (PCR) NEGATIVE RSV RNA Qual (PCR) NEGATIVE SARS-CoV-2 RNA (RT-PCR) NEGATIVE Imaging Radiologist's Impressions: Impressions Chest X-Ray 05/24/24 12:49 IMPRESSION: 1. Bilateral patchy opacities throughout both lungs, for which multifocal pneumonia or atypical pneumonia is a consideration. Differential also includes asymmetric pulmonary edema. This appears worsened from the prior exam, particularly in the right mid and upper lung. 2. Similar increased retrocardiac opacity likely representing consolidation. Electronically signed by: Og Mcdonnell MD 05/24/2024 01:52 PM EDT RP Assessment and Plan (1) Pneumonia: Status: Acute (2) Acute hypotension: Status: Acute Plan 88-year-old male with a PMH significant for COPD, subclavian stenosis s/p stenting, HTN, CAD w/ hx of NSTEMI in 12/2016, s/p cardiac catheterization w/o stenting, and current smoker Multifocal pneumonia resulting in COPD exacerbation with chronic hypoxemic respiratory failure Leukocytosis chronic r/t myeloproliferative disorder. Tachypneic but no other SIRS criteria. No sepsis at time of admission 1617 CXR shows bilateral patchy opacities throughout both lungs, possibly multifocal pneumonia or atypical pneumonia but could also include asymmetric pulmonary edema. Worsened from prior exams Given multiple recent hospitalizations, broad coverage with IV vanco and cefepime (initiated 05/24) initiated 05/24) IV methylprednisolone 40 mg b.i.d. DuoNebs q.4h Strep pneumo antigen, Legionella antigen, sputum culture and MRSA nasal swab Symptomatic management Continue maintenance inhalers Continue supplemental O2 per protocol Follow CBC, cultures Acute hypotension possibly hypovolemia as pt appears dry. Not severe sepsis Responding to IVF resuscitation Continue IVF Monitor on telemetry and closely monitor vital signs Polycythemia vera with chronic leukocytosis outpt phlebotomy CAD No anginal chest pain continue statin. Not on bb or asa HTN continue lasix Sustained SVT amiodorone DVT prophylaxis-heparin DNR/DNI per MOLST form Patient requires inpatient stay at least 2 midnights due to multifocal pneumonia with multiple hospital admissions recently necessitating broad-spectrum antibiotics to cover for Hcap as well as management of hypotension requiring aggressive IV fluid resuscitation and close monitoring of hemodynamics Quality Stroke Does the patient have a stroke diagnosis?: No VTE Prior VTE?: No VTE Risk Level:: Medical - moderate - high VTE Device Contraindication: Treatment Not Indicated VTE Drug Contraindication: N/A - Med Ordered
[2024-05-24 16:42] LABS: Appearance Urine Clear; Color Urine Dark Yellow; Glucose Urine UA Negative (Negative); Leukocyte Esterase Urine Moderate (2+) (Negative); Nitrite Urine Negative (Negative); PH 6.5 (5.0-9.0); Specific Gravity - Urine 1.015 (1.005-1.025); UMIC TRIGGER UACC YES; Urine Blood Negative (Negative); Urine Ketones Negative (Negative); Urine Protein Negative (Neg-Trace)
[2024-05-24 16:45] LABS: Bacteria Urine None Seen (None Seen); Hyaline Casts Urine 0-2 /LPF (0-2); RBC Urine 0-2 /HPF (0-2); Squamous Epithelial Cell Urine 0-2 /HPF (0-2); UACC Culture Trigger YES
[2024-05-24] MEDS: methylPREDNISolone Sod Succ 40 MG/ML VIAL IVPUSH (16:50)
[2024-05-24] MEDS: vancomycin/NS 2,000 MG/500 ML PLAST..BAG 250 MG IV (16:50)
[2024-05-24] MEDS: Albumin Human 25 % 100 ML IV ×2 (16:51→18:14)
[2024-05-24] MEDS: Lactated Ringers 1,000 ML 999 ML IV (17:18)
[2024-05-24] MEDS: Lactated Ringers 1,000 ML 100 ML IVCONT (17:18)
--- NOTE | 2024-05-24 17:52 | PHA.PROG ---
Admission Date/Time: May 24, 2024 16:03 Indication: respiratory Weight in k.3 kg Adjusted body weight in Kg: [place] body weight in Kg: Obesity Dosing Indication % IBW: BMI 27.3 Serum Creatinine - Last 168 Hours 05/24/24 13:07 Creatinine 0.90 Estimated CrCl and GFR - Last 168 Hours 05/24/24 13:07 Estim Creat Clear Calc 53.4 Estimated GFR > 60 Vancomycin Loading Dose: 2000 X1 Current Vancomycin Dosing Regimen: 1500mg Q24H Vancomycin Monitoring using AUC goal of 400 - 600 range with trough as surrogate marker: 17 Date and Time for next Vancomycin Level to be drawn: 05/26 @1500 Pharmacist Comments on Vancomycin Plan: Pt's renal function appears stable, starting off with 1500mg Q24H to get into range quicker as indication is respiratory. To be adjusted based on renal tomorrow and trough on friday. Vancomycin dosing will take advantage of [employer] as a clinical decision support tool that uses Bayesian modeling to calculate individual patient's pharmacokinetic parameters and forecast the patient's drug concentration time course with the target goal AUC 24 range of 400 - 600 mg/L/hr.
[2024-05-24] MEDS: Albuterol/Iprat 2.5/0.5MG 3 ML AMPUL.NEB INHALE (19:17)
[2024-05-24] MEDS: cefEPime HCl/D5W 2 GM/50 ML PIGGYBACK IV (20:13)
[2024-05-25] VITALS (13 sets, daily range): BP systolic 82–124; BP diastolic 52–64; PULSE 66–78; RESP 16–22; TEMP 36.1–37.2; O2SAT 1–98
--- NOTE | 2024-05-25 02:14 | PC.NURSE ---
desat to 75% on 2L NC while asleep. observed to be mouth breathing. pt awoke to voice. denies SOB. no wheezing auscultated. changed to oxymask. now with SpO2 of 94% on 2L oxymask. pt states he is comfortable. demonstrated ability to use call singh. plan of care ongoing
[2024-05-25 05:02] LABS: Basophils Percent Auto 0.2 % (0-2); Eosinophils Percent Auto 0.1 % (0-4); Hematocrit 34.3 % (42.0-52.0); Hemoglobin 9.9 g/dl (14.0-18.0); Imm Gran Abs Auto 0.16 X10*3/uL (0.00-0.03); Lymphocytes Absolute Auto 0.6 X10*3/uL (1.2-4.9); Lymphocytes Percent Auto 3.8 % (20-40); MANUAL DIFF FLAG SCAN; Mean Corpuscular HGB Conc 28.9 g/dl (31.0-36.0); Mean Corpuscular Hemoglobin 21.6 pg (27.0-33.0); Mean Corpuscular Volume 74.7 fL (80.0-98.0); Monocytes Absolute Auto 0.1 X10*3/uL (0.1-1.2); Monocytes Percent Auto 0.9 % (2-11); Neutrophils Absolute Auto 15.4 x10*3/uL (2.0-8.3); PLT CLUMP 1; Red Blood Count 4.59 X10*6/uL (4.60-5.80); SCAN SMEAR FLAG 1
[2024-05-25 05:14] LABS: Anion Gap 13 (12-20); Blood Urea Nitrogen 12 mg/dL (9-16); Calcium 8.1 mg/dL (8.4-10.2); Carbon Dioxide 21 mmol/L (22-29); Chloride 100 mmol/L (96-108); Creatinine Clr Calc Pharmacy 65.9; Estimated Glomerular Filt Rate > 60; Glucose Random 153 mg/dL (60-115); Potassium 4.7 mmol/L (3.3-5.1); Sodium 129 mmol/L (135-145)
[2024-05-25 05:25] LABS: White Blood Count 16.4 X10*3/uL (4.8-10.8)
[2024-05-25 05:26] LABS: Platelet Count 90 X10*3/uL (160-400); SLIDE REVIEW VERIFIED
[2024-05-25] MEDS: methylPREDNISolone Sod Succ 40 MG/ML VIAL IVPUSH ×2 (05:32→17:44)
[2024-05-25] MEDS: Omeprazole 20 MG CAPSULE.DR PO (06:34)
[2024-05-25] MEDS: Albuterol/Iprat 2.5/0.5MG 3 ML AMPUL.NEB INHALE ×4 (07:39→19:04)
--- NOTE | 2024-05-25 07:46 | HE.PHANOTE ---
[facility] Patient has only recieved a 2000 mg load dose so far. Patient is being dosed Q24H, therefore patient will receive first dose of 1500mg tonight at 1700, first level will be drawn on 05/26 @1500. Renal function has improved from yesterday. Predicted AUC 495
--- NOTE | 2024-05-25 07:57 | PC.NURSE ---
Assumed care of patient at 0700. Patient alert and oriented x 2. Denies pain or discomfort. Turned and repositioned, male purewick in place draining clear yellow urine. IV in right ac appears to have infilatrated on prior shift, Area tender to touch and swollen. IV removed. changed from oxy mask to NC to eat breakfast, Ate well for breakfast. Denies sob. Feet elevated on pillow
[2024-05-25] MEDS: cefEPime HCl/D5W 2 GM/50 ML PIGGYBACK IV ×2 (08:43→21:30)
[2024-05-25] MEDS: 0.9 % Sodium Chloride Flush 3 ML SYRINGE IVFLUSH ×2 (08:43→21:38)
[2024-05-25] MEDS: Cyanocobalamin (Vitamin B-12) 1,000 MCG TABLET 1000 MCG PO (11:26)
[2024-05-25] MEDS: Multivitamin TABLET 1 TAB PO (11:26)
[2024-05-25] MEDS: Amiodarone HCL 200 MG TABLET PO (11:26)
[2024-05-25] MEDS: guaiFENesin LA 600 MG TAB.ER.12H PO ×2 (11:26→21:30)
[2024-05-25] MEDS: Fluticasone/Umeclidinium/Vilanterol 200/62.5/25 BLST.W.DEV 1 PUFF INHALE (11:35)
--- NOTE | 2024-05-25 12:59 | HO.PM.IMPN ---
Subjective Subjective Date of Service: 05/25/24 Interval History: complaining of dry mouth, cough productive of yellowish-white phlegm, denies fever, no chills, no other acute events overnight. Review of Systems All other system reviewed and are negative. Physical Exam Vital Signs: Vital Signs: Last Vital Signs Temp 96.9 F 05/25/24 12:14 Pulse 68 05/25/24 12:14 Resp 20 05/25/24 12:14 BP 99/57 L 05/25/24 12:14 Pulse Ox 97 05/25/24 12:14 O2 Del Method Nasal Cannula 05/25/24 12:14 O2 Flow Rate 3 05/25/24 12:14 Oxygen Flow Rate 2 05/24/24 12:42 BMI result Body Mass Index 27.3 Const: Other: General resting comfortably in no acute distress. Neck no JVD. CVS regular rate rhythm, Respiratory lungs diminished, scattered rhonchi, no acute respiratory distress Gastrointestinal abdomen soft, non tender, bowel sounds audible Extremities no edema. Neuro non focal Skin no rash appropriate affect Objective Data Active Medications Acetaminophen (Acetaminophen 325 Mg Tablet) 650 mg PO Q6H PRN PRN Reason: Pain, Mild 1-3,fever,headache Albuterol Sulfate (Albuterol Sulfate 90 Mcg 8 Gm Inhaler) 1 puff INHALE Q6H PRN PRN Reason: asthma Albuterol/Ipratropium (Albuterol/Iprat 2.5/0.5mg 3 Ml Ampul.Neb) 3 ml INHALE RQ4H WHILE AWAKE [facility] Last Admin: 05/25/24 11:35 Dose: 3 ml Documented By: HOA Albuterol/Ipratropium (Albuterol/Iprat 2.5/0.5mg 3 Ml Ampul.Neb) 3 ml INHALE Q4H PRN PRN Reason: Wheezing Amiodarone HCl (Amiodarone Hcl 200 Mg Tablet) 200 mg PO DAILY [facility] Last Admin: 05/25/24 11:26 Dose: 200 mg Documented By: MICHAEL Atorvastatin Calcium (Atorvastatin Calcium 20 Mg Tablet) 20 mg PO BEDTIME [facility] Last Admin: 05/24/24 21:00 Dose: Not Given Documented By: TERESA Non-Admin Reason: Patient Condition Contraindication Comments: somnolent Bisacodyl (Bisacodyl 10 Mg Supp.Rect) 10 mg ND BEDTIME PRN PRN Reason: Constipation Calcium Carbonate (Calcium Carbonate 750 Mg Tab.Chew) 750 mg PO Q4H PRN PRN Reason: Heartburn Cyanocobalamin (Cyanocobalamin (Vitamin B-12) 1,000 Mcg Tablet) 1,000 mcg PO DAILY [facility] Last Admin: 05/25/24 11:26 Dose: 1,000 mcg Documented By: MICHAEL Fluticasone/Umeclidinium/Vilanterol (Fluticasone/Umeclidinium/Vilanterol 200/62.5 Blst.W.Dev) 1 puff INHALE RDAILY [facility] Last Admin: 05/25/24 11:35 Dose: 1 puff Documented By: HOA Furosemide (Furosemide 20 Mg Tablet) 20 mg PO DAILY [facility]; Protocol Last Admin: 05/25/24 11:29 Dose: Not Given Documented By: MICHAEL Non-Admin Reason: Decreased Blood Pressure Guaifenesin (Guaifenesin [place] 600 Mg Tab.Er.12h) 600 mg PO BID [facility] Last Admin: 05/25/24 11:26 Dose: 600 mg Documented By: MICHAEL Vancomycin HCl 1,500 mg/ (Sodium Chloride) 500 mls @ 333.333 mls/hr IV Q24H [facility] Cefepime HCl (Maxipime) 2 gm in 50 mls @ 100 mls/hr IV Q12H [facility] Last Infusion: 05/25/24 09:10 Dose: Infused Documented By: EFREM Magnesium Hydroxide (Milk Of Magnesia 30 Ml Oral.Susp) 30 ml PO Q24H PRN PRN Reason: Constipation Melatonin (Melatonin 3 Mg Tablet) 6 mg PO BEDTIME PRN PRN Reason: Insomnia Methylprednisolone Sodium Succinate (Methylprednisolone Sod Succ 40 Mg/Ml Vial) 40 mg IVPUSH Q12H [facility] Last Admin: 05/25/24 05:32 Dose: 40 mg Documented By: TERESA Multivitamins/Vitamin C (Multivitamin Tablet) 1 tab PO DAILY [facility] Last Admin: 05/25/24 11:26 Dose: 1 tab Documented By: MICHAEL Omeprazole (Omeprazole 20 Mg Capsule.Dr) 20 mg PO DAILY@0630 [facility] Last Admin: 05/25/24 06:34 Dose: 20 mg Documented By: TERESA Pharmacy Consult (Consult Rx Vancomycin Dosing) 1 each MISCELLANE DAILY PRN PRN Reason: Consult order Sodium Biphosphate/Sodium Phosphate (Sodium Phosphate,[place]-Dibasic 133 Ml Enema) 133 ml ND DAILY PRN PRN Reason: Constipation Sodium Chloride (0.9 % Sodium Chloride Flush 3 Ml Syringe) 3 ml IVFLUSH QSHIFT [facility] Last Admin: 05/25/24 08:43 Dose: 3 ml Documented By: EFREM Labs 05/25/24 04:45 05/25/24 04:45 Labs: Laboratory Results - last 24 hr 05/24/24 05/24/24 05/24/24 13:03 13:07 13:11 MCV 74.7 L MCH 22.0 L MCHC 29.4 L RDW 31.2 H Plt Count 104 L MPV Not Reportable Immature Gran % (Auto) 0.6 H Neut % (Auto) 80.6 H Lymph % (Auto) 6.2 L [place] % (Auto) 7.1 Eos % (Auto) 5.4 H Baso % (Auto) 0.1 Lymph # (Auto) 0.8 L [place] # (Auto) 1.0 Eos # (Auto) 0.7 H Baso # (Auto) 0.0 Abs Immat Gran (auto) 0.08 H Absolute Neuts (auto) 10.9 H Absolute Nucleated RBC 0.000 Nucleated RBC % (auto) 0.0 Smear Tech's Comments PT 19.4 H INR 1.7 H VBG pH 7.38 VBG pCO2 54 VBG pO2 33 VBG HCO3 32 H VBG O2 Saturation 51.0 VBG Base Excess 6.1 Anion Gap 12 Estim Creat Clear Calc 53.4 Estimated GFR > 60 Random Glucose 88 Lactic Acid 1.3 Calcium 7.8 L Total Bilirubin 0.8 Direct Bilirubin 0.3 AST 38 H ALT 30 Alkaline Phosphatase 98 B-Natriuretic Peptide 148 H Total Protein 5.8 L Albumin 3.2 L Lipase 5 L Urine Color Urine Appearance Urine pH Ur Specific [place] Urine Protein Urine Glucose (UA) Urine Ketones Urine Blood Urine Nitrite Ur Leukocyte Esterase Urine RBC Urine WBC Ur Squamous Epith Cells Urine Bacteria Hyaline Casts Influenza Type A (PCR) NEGATIVE Influenza Type B (PCR) NEGATIVE RSV RNA Qual (PCR) NEGATIVE SARS-CoV-2 RNA (RT-PCR) NEGATIVE 05/24/24 05/25/24 16:30 04:45 MCV 74.7 L MCH 21.6 L MCHC 28.9 L RDW 31.0 H Plt Count 90 L MPV Not Reportable Immature Gran % (Auto) 1.0 H Neut % (Auto) 94.0 H Lymph % (Auto) 3.8 L [place] % (Auto) 0.9 L Eos % (Auto) 0.1 Baso % (Auto) 0.2 Lymph # (Auto) 0.6 L [place] # (Auto) 0.1 Eos # (Auto) 0.0 Baso # (Auto) 0.0 Abs Immat Gran (auto) 0.16 H Absolute Neuts (auto) 15.4 H Absolute Nucleated RBC 0.000 Nucleated RBC % (auto) 0.0 Smear Tech's Comments VERIFIED PT INR VBG pH VBG pCO2 VBG pO2 VBG HCO3 VBG O2 Saturation VBG Base Excess Anion Gap 13 Estim Creat Clear Calc 65.9 Estimated GFR > 60 Random Glucose 153 H Lactic Acid Calcium 8.1 L Total Bilirubin Direct Bilirubin AST ALT Alkaline Phosphatase B-Natriuretic Peptide Total Protein Albumin Lipase Urine Color Dark Yellow Urine Appearance Clear Urine pH 6.5 Ur Specific [place] 1.015 Urine Protein Negative Urine Glucose (UA) Negative Urine Ketones Negative Urine Blood Negative Urine Nitrite Negative Ur Leukocyte Esterase Moderate (2+) H Urine RBC 0-2 Urine WBC 11-20 H Ur Squamous Epith Cells 0-2 Urine Bacteria None Seen Hyaline Casts 0-2 Influenza Type A (PCR) Influenza Type B (PCR) RSV RNA Qual (PCR) SARS-CoV-2 RNA (RT-PCR) Microbiology Microbiology Results: Microbiology 05/24/24 Unknown Urine Culture - Preliminary Urine clean catch - Clean Catch Midstream Culture too young to evaluate. Assessment and Plan (1) Pneumonia: Status: Acute (2) Acute hypotension: Status: Acute Plan 88-year-old male with a PMH significant for COPD, subclavian stenosis s/p stenting, HTN, CAD w/ hx of NSTEMI in 12/2016, s/p cardiac catheterization w/o stenting, and current smoker Multifocal pneumonia resulting in COPD exacerbation with chronic hypoxemic respiratory failure no fevers, persistent cough with yellowish white phlegm Leukocytosis chronic r/t myeloproliferative disorder. Tachypneic but no other SIRS criteria. No sepsis CXR shows bilateral patchy opacities throughout both lungs, possibly multifocal pneumonia or atypical pneumonia but could also include asymmetric pulmonary edema. Worsened from prior exams Given multiple recent hospitalizations, broad coverage with IV vanco and cefepime (initiated 05/24) on IV methylprednisolone 40 mg b.i.d. DuoNebs q.4h MRSA nasal swab negative April 30 Continue supplemental O2 per protocol stable chronic leukocytosis Acute hypotension history of hypotension Not due to severe sepsis, status post IV fluids soft bp, hold Lasix Monitor on telemetry and closely monitor vital signs Polycythemia vera with chronic leukocytosis/thrombocytopenia outpt phlebotomy, being followed by Dr. Garzon,follow cbc CAD No anginal chest pain continue statin. Not on bb or asa. HTN hold lasix,soft bp mild acute hyponatremia on chronic Lasix, no GENEVIEVE, follow serum osmolality, BMP PAF with history of Sustained SVT status post cardioversion currently in sinus rhythm, continue amiodorone, Eliquis held during previous hospitalization due to significant anemia and low platelets, recommend outpatient follow-up with Dr. Garzon if suitable to be placed back on Eliquis DVT prophylaxis- compression boots DNR/DNI per MOLST form Patient requires inpatient stay at least 2 midnights due to multifocal pneumonia with multiple hospital admissions recently necessitating broad-spectrum antibiotics to cover for Hcap as well as management of hypotension requiring aggressive IV fluid resuscitation and close monitoring of hemodynamics Quality Stroke Does the patient have a stroke diagnosis?: No VTE Prior VTE?: No VTE Risk Level:: Medical - moderate - high VTE Device Contraindication: Treatment Not Indicated VTE Drug Contraindication: N/A - Med Ordered
[2024-05-25] MEDS: 0.9 % Sodium Chloride 500 ML 100 ML IVCONT (15:41)
--- NOTE | 2024-05-25 16:01 | MHC.CM.PN ---
IMM 05/25/24, Pt came to [facility] from [facility] where he was for STR. At home, he lives with his and 2 sons. He does not have home health services, he uses a walker. HCP is on file and confirmed: Jillian. PCP: Taye Kc listed, pt. said he sees a lady. DCP return to [facility] via BLS, message to be sent via [employer]. CM to follow for DC needs.
[2024-05-25] MEDS: vancomycin HCL 1,500 MG in 0.9 % Sodium Chloride 500 ML 333.33 MG IV (17:44)
[2024-05-25] MEDS: Atorvastatin Calcium 20 MG TABLET PO (21:30)
[2024-05-26] VITALS (11 sets, daily range): BP systolic 90–135; BP diastolic 56–76; PULSE 60–79; RESP 16–22; TEMP 36–36.8; O2SAT 92–100
[2024-05-26] MEDS: methylPREDNISolone Sod Succ 40 MG/ML VIAL IVPUSH ×2 (05:15→16:06)
[2024-05-26] MEDS: Omeprazole 20 MG CAPSULE.DR PO (05:15)
[2024-05-26] MEDS: Fluticasone/Umeclidinium/Vilanterol 200/62.5/25 BLST.W.DEV 1 PUFF INHALE (07:34)
[2024-05-26] MEDS: Albuterol/Iprat 2.5/0.5MG 3 ML AMPUL.NEB INHALE ×4 (07:35→19:35)
[2024-05-26 07:44] LABS: Hematocrit 31.2 % (42.0-52.0); Hemoglobin 9.1 g/dl (14.0-18.0); Mean Corpuscular HGB Conc 29.2 g/dl (31.0-36.0); Mean Corpuscular Hemoglobin 21.7 pg (27.0-33.0); Mean Corpuscular Volume 74.5 fL (80.0-98.0); PLT CLUMP 1; Red Blood Count 4.19 X10*6/uL (4.60-5.80); Red Cell Distribution Width 30.8 % (11.0-16.0)
[2024-05-26] MEDS: guaiFENesin LA 600 MG TAB.ER.12H PO ×2 (07:45→20:55)
[2024-05-26] MEDS: cefEPime HCl/D5W 2 GM/50 ML PIGGYBACK IV ×2 (07:45→20:56)
[2024-05-26] MEDS: Cyanocobalamin (Vitamin B-12) 1,000 MCG TABLET 1000 MCG PO (07:45)
[2024-05-26] MEDS: Multivitamin TABLET 1 TAB PO (07:45)
[2024-05-26] MEDS: Amiodarone HCL 200 MG TABLET PO (07:45)
[2024-05-26 08:00] LABS: Anion Gap 9 (12-20); Blood Urea Nitrogen 12 mg/dL (9-16); Calcium 8.1 mg/dL (8.4-10.2); Carbon Dioxide 25 mmol/L (22-29); Chloride 100 mmol/L (96-108); Creatinine Clr Calc Pharmacy 66.8; Estimated Glomerular Filt Rate > 60; Glucose Random 121 mg/dL (60-115); Potassium 4.4 mmol/L (3.3-5.1); Sodium 130 mmol/L (135-145)
[2024-05-26 08:17] LABS: Thyroid Stimulating Hormone 34.49 uIU/mL (0.32-4.0)
[2024-05-26 08:31] LABS: Platelet Count 139 X10*3/uL (160-400)
[2024-05-26 08:42] LABS: Osmolality, Serum 271 mosm/kg (281-305)
--- NOTE | 2024-05-26 15:17 | MHC.CM.PN ---
Per rounds, pt. still requiring acute care for tx of pneumonia and hypotension. CM to follow for DC needs.
[2024-05-26 15:33] LABS: Vancomycin Random 14.4 mcg/mL (15-20)
--- NOTE | 2024-05-26 15:39 | HE.PHANOTE ---
Re: Vanco Renal function improving. Trough returned at 14.4. Continue current dose of 1500 q24h with predicted AUC 541, predicted trough 15.4. Next trough /3 @ 1500.
[2024-05-26] MEDS: 0.9 % Sodium Chloride Flush 3 ML SYRINGE IVFLUSH ×2 (16:06→23:40)
[2024-05-26] MEDS: vancomycin HCL 1,500 MG in 0.9 % Sodium Chloride 500 ML 333.3 MG IV (16:06)
--- NOTE | 2024-05-26 16:48 | P.PNIM_ITS ---
Subjective Subjective Date of Service: 05/27/24 Interval History: Feeling significantly better, less shortness of breath and cough but noted to have audible wheeze. Denies fever, no chills, no chest pain, no palpitations. Review of Systems All other system reviewed and are negative. Physical Exam 2 Vital Signs: Vital Signs: Last Vital Signs Temp 98.1 F 05/26/24 15:30 Pulse 75 05/26/24 15:30 Resp 18 05/26/24 15:30 BP 90/60 05/26/24 15:30 Pulse Ox 100 05/26/24 15:30 O2 Del Method Nasal Cannula 05/26/24 15:30 O2 Flow Rate 2 05/26/24 15:30 Oxygen Flow Rate 2 05/24/24 12:42 BMI result Body Mass Index 27.3 Const: Other: General resting comfortably in no acute distress. Neck no JVD. CVS regular rate rhythm, Respiratory lungs bilateral wheeze, no acute respiratory distress Gastrointestinal abdomen soft, non tender, bowel sounds audible Extremities no edema. Neuro non focal Skin no rash appropriate affect Objective Data Active Medications Acetaminophen (Acetaminophen 325 Mg Tablet) 650 mg PO Q6H PRN PRN Reason: Pain, Mild 1-3,fever,headache Albuterol Sulfate (Albuterol Sulfate 90 Mcg 8 Gm Inhaler) 1 puff INHALE Q6H PRN PRN Reason: asthma Albuterol/Ipratropium (Albuterol/Iprat 2.5/0.5mg 3 Ml Ampul.Neb) 3 ml INHALE RQ4H WHILE AWAKE [facility] Last Admin: 05/26/24 15:15 Dose: 3 ml Documented By: COLTON Albuterol/Ipratropium (Albuterol/Iprat 2.5/0.5mg 3 Ml Ampul.Neb) 3 ml INHALE Q4H PRN PRN Reason: Wheezing Amiodarone HCl (Amiodarone Hcl 200 Mg Tablet) 200 mg PO DAILY [facility] Last Admin: 05/26/24 07:45 Dose: 200 mg Documented By: LUPE Atorvastatin Calcium (Atorvastatin Calcium 20 Mg Tablet) 20 mg PO BEDTIME [facility] Last Admin: 05/25/24 21:30 Dose: 20 mg Documented By: NIEVES Bisacodyl (Bisacodyl 10 Mg Supp.Rect) 10 mg [place] BEDTIME PRN PRN Reason: Constipation Calcium Carbonate (Calcium Carbonate 750 Mg Tab.Chew) 750 mg PO Q4H PRN PRN Reason: Heartburn Cyanocobalamin (Cyanocobalamin (Vitamin B-12) 1,000 Mcg Tablet) 1,000 mcg PO DAILY [facility] Last Admin: 05/26/24 07:45 Dose: 1,000 mcg Documented By: LUPE Fluticasone/Umeclidinium/Vilanterol (Fluticasone/Umeclidinium/Vilanterol 200/62.5/25 Blst.W.Dev) 1 puff INHALE RDAILY [facility] Last Admin: 05/26/24 07:34 Dose: 1 puff Documented By: COLTON Guaifenesin (Guaifenesin La 600 Mg Tab.Er.12h) 600 mg PO BID [facility] Last Admin: 05/26/24 07:45 Dose: 600 mg Documented By: LUPE Vancomycin HCl 1,500 mg/ (Sodium Chloride) 500 mls @ 333.333 mls/hr IV Q24H [facility] Last Admin: 05/26/24 16:06 Dose: 333.3 mls/hr Documented By: FARTUN Cefepime HCl (Maxipime) 2 gm in 50 mls @ 100 mls/hr IV Q12H [facility] Last Infusion: 05/26/24 08:57 Dose: Infused Documented By: LUPE Magnesium Hydroxide (Milk Of Magnesia 30 Ml Oral.Susp) 30 ml PO Q24H PRN PRN Reason: Constipation Melatonin (Melatonin 3 Mg Tablet) 6 mg PO BEDTIME PRN PRN Reason: Insomnia Methylprednisolone Sodium Succinate (Methylprednisolone Sod Succ 40 Mg/Ml Vial) 40 mg IVPUSH Q12H [facility] Last Admin: 05/26/24 16:06 Dose: 40 mg Documented By: FARTUN Multivitamins/Vitamin C (Multivitamin Tablet) 1 tab PO DAILY [facility] Last Admin: 05/26/24 07:45 Dose: 1 tab Documented By: ULPE Omeprazole (Omeprazole 20 Mg Capsule.) 20 mg PO DAILY@0630 [facility] Last Admin: 05/26/24 05:15 Dose: 20 mg Documented By: NIEVES Pharmacy Consult (Consult Rx Vancomycin Dosing) 1 each MISCELLANE DAILY PRN PRN Reason: Consult order Sodium Biphosphate/Sodium Phosphate (Sodium Phosphate,[place]-Dibasic 133 Ml Enema) 133 ml [place] DAILY PRN PRN Reason: Constipation Sodium Chloride (0.9 % Sodium Chloride Flush 3 Ml Syringe) 3 ml IVFLUSH QSHIFT [facility] Last Admin: 05/26/24 16:06 Dose: 3 ml Documented By: FARTUN Labs 05/26/24 07:29 05/27/24 07:39 Labs: Laboratory Results - last 24 hr 05/26/24 05/26/24 07:29 14:56 MCV 74.5 L MCH 21.7 L MCHC 29.2 L RDW 30.8 H Plt Count 139 L D MPV Not Reportable Absolute Nucleated RBC 0.000 Nucleated RBC % (auto) 0.0 Anion Gap 9 L Estim Creat Clear Calc 66.8 Estimated GFR > 60 Random Glucose 121 H Osmolality 271 L Calcium 8.1 L TSH 34.49 H Random Vancomycin 14.4 L Microbiology Microbiology Results: Microbiology 05/24/24 13:06 Blood Culture - Preliminary Blood - Venous No growth after 48 hours. 05/24/24 13:05 Blood Culture - Preliminary Blood - Venous No growth after 48 hours. 05/24/24 Unknown Urine Culture - Preliminary Urine clean catch - Clean Catch Midstream Gram negative damian Assessment and Plan (1) Pneumonia: Status: Acute (2) Acute hypotension: Status: Acute Plan 88-year-old male with a PMH significant for COPD, subclavian stenosis s/p stenting, HTN, CAD w/ hx of NSTEMI in 12/2016, s/p cardiac catheterization w/o stenting, and current smoker Multifocal pneumonia resulting in COPD exacerbation with chronic hypoxemic respiratory failure no fevers, cough and shortness of breath improving Leukocytosis chronic r/t myeloproliferative disorder. No sepsis CXR shows bilateral patchy opacities throughout both lungs, possibly multifocal pneumonia or atypical pneumonia but could also include asymmetric pulmonary edema. Worsened from prior exams Given multiple recent hospitalizations, on broad coverage with IV vanco and cefepime (initiated 05/24) on IV methylprednisolone 40 mg b.i.d. DuoNebs q.4h MRSA nasal swab negative April 30 Continue supplemental O2 on baseline 3 L of oxygen Acute hypotension resolved status post IV fluid continue to have soft blood pressure at baseline closely monitor vital signs Polycythemia vera with chronic leukocytosis/thrombocytopenia outpt phlebotomy, being followed by Dr. Garzon,follow cbc CAD No anginal chest pain continue statin. Not on bb or asa. 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 PAF with history of Sustained SVT status post cardioversion currently in sinus rhythm, continue amiodorone, Eliquis held during previous hospitalization due to significant anemia and low platelets, recommend outpatient follow-up with Dr. Garzon if suitable to be placed back on Eliquis DVT prophylaxis- compression boots DNR/DNI per MOLST form Patient requires inpatient stay due to multifocal pneumonia with multiple hospital admissions recently necessitating broad-spectrum antibiotics to cover for Hcap as well as management of hypotension requiring aggressive IV fluid resuscitation and close monitoring of hemodynamics Quality Stroke Does the patient have a stroke diagnosis?: No VTE Prior VTE?: No VTE Risk Level:: Medical - moderate - high VTE Device Contraindication: Treatment Not Indicated VTE Drug Contraindication: N/A - Med Ordered
[2024-05-26] MEDS: Atorvastatin Calcium 20 MG TABLET PO (20:55)
[2024-05-27] VITALS (10 sets, daily range): BP systolic 93–145; BP diastolic 62–89; PULSE 53–78; RESP 16–20; TEMP 35.9–37.2; O2SAT 92–100
[2024-05-27] MEDS: methylPREDNISolone Sod Succ 40 MG/ML VIAL IVPUSH ×2 (05:21→16:27)
[2024-05-27] MEDS: Omeprazole 20 MG CAPSULE.DR PO (05:21)
[2024-05-27] MEDS: Albuterol/Iprat 2.5/0.5MG 3 ML AMPUL.NEB INHALE ×4 (07:53→19:57)
[2024-05-27] MEDS: Fluticasone/Umeclidinium/Vilanterol 200/62.5/25 BLST.W.DEV 1 PUFF INHALE (07:53)
[2024-05-27 08:05] LABS: Creatinine Clr Calc Pharmacy 64.1; Estimated Glomerular Filt Rate > 60
[2024-05-27] MEDS: 0.9 % Sodium Chloride Flush 3 ML SYRINGE IVFLUSH ×3 (08:27→20:22)
[2024-05-27] MEDS: Multivitamin TABLET 1 TAB PO (08:28)
[2024-05-27] MEDS: Amiodarone HCL 200 MG TABLET PO (08:28)
[2024-05-27] MEDS: Cyanocobalamin (Vitamin B-12) 1,000 MCG TABLET 1000 MCG PO (08:28)
[2024-05-27 08:29] LABS: Free T4 (Free Thyroxine) 0.42 ng/dL (0.71-1.85)
[2024-05-27] MEDS: cefEPime HCl/D5W 2 GM/50 ML PIGGYBACK IV ×2 (08:29→20:17)
[2024-05-27] MEDS: guaiFENesin LA 600 MG TAB.ER.12H PO ×2 (08:29→20:17)
--- NOTE | 2024-05-27 11:27 | HO.PM.IMPN ---
Subjective Subjective Date of Service: 05/27/24 Interval History: Feels better this morning, less shortness of breath and cough, no fevers, no chills, no acute events overnight. No audible wheeze Review of Systems All other system reviewed and are negative. Physical Exam Vital Signs: Vital Signs: Last Vital Signs Temp 97.6 F 05/27/24 07:05 Pulse 74 05/27/24 07:54 Resp 20 05/27/24 07:54 BP 93/65 05/27/24 07:05 Pulse Ox 92 05/27/24 07:05 O2 Del Method Nasal Cannula 05/27/24 07:05 O2 Flow Rate 3 05/27/24 07:05 Oxygen Flow Rate 2 05/24/24 12:42 BMI result Body Mass Index 27.3 Const: Other: General resting comfortably in no acute distress. Neck no JVD. CVS regular rate rhythm, Respiratory lungs bilateral exp wheeze, no acute respiratory distress. Gastrointestinal abdomen soft, non tender, bowel sounds audible Extremities no edema. Neuro non focal Skin no rash appropriate affect Objective Data Active Medications Acetaminophen (Acetaminophen 325 Mg Tablet) 650 mg PO Q6H PRN PRN Reason: Pain, Mild 1-3,fever,headache Albuterol Sulfate (Albuterol Sulfate 90 Mcg 8 Gm Inhaler) 1 puff INHALE Q6H PRN PRN Reason: asthma Albuterol/Ipratropium (Albuterol/Iprat 2.5/0.5mg 3 Ml Ampul.Neb) 3 ml INHALE RQ4H WHILE AWAKE [facility] Last Admin: 05/27/24 07:53 Dose: 3 ml Documented By: HOA Albuterol/Ipratropium (Albuterol/Iprat 2.5/0.5mg 3 Ml Ampul.Neb) 3 ml INHALE Q4H PRN PRN Reason: Wheezing Amiodarone HCl (Amiodarone Hcl 200 Mg Tablet) 200 mg PO DAILY [facility] Last Admin: 05/27/24 08:28 Dose: 200 mg Documented By: ALEXA Atorvastatin Calcium (Atorvastatin Calcium 20 Mg Tablet) 20 mg PO BEDTIME [facility] Last Admin: 05/26/24 20:55 Dose: 20 mg Documented By: TEE Bisacodyl (Bisacodyl 10 Mg Supp.Rect) 10 mg [place] BEDTIME PRN PRN Reason: Constipation Calcium Carbonate (Calcium Carbonate 750 Mg Tab.Chew) 750 mg PO Q4H PRN PRN Reason: Heartburn Cyanocobalamin (Cyanocobalamin (Vitamin B-12) 1,000 Mcg Tablet) 1,000 mcg PO DAILY [facility] Last Admin: 05/27/24 08:28 Dose: 1,000 mcg Documented By: ALEXA Fluticasone/Umeclidinium/Vilanterol (Fluticasone/Umeclidinium/Vilanterol 200/62.5/25 Blst.W.Dev) 1 puff INHALE RDAILY [facility] Last Admin: 05/27/24 07:53 Dose: 1 puff Documented By: HOA Guaifenesin (Guaifenesin La 600 Mg Tab.Er.12h) 600 mg PO BID [facility] Last Admin: 05/27/24 08:29 Dose: 600 mg Documented By: ALEXA Vancomycin HCl 1,500 mg/ (Sodium Chloride) 500 mls @ 333.333 mls/hr IV Q24H [facility] Last Infusion: 05/26/24 17:42 Dose: Infused Documented By: FARTUN Cefepime HCl (Maxipime) 2 gm in 50 mls @ 100 mls/hr IV Q12H [facility] Last Infusion: 05/27/24 08:30 Dose: Infused Documented By: ALEXA Levothyroxine Sodium (Levothyroxine Sodium 75 Mcg Tablet) 75 mcg PO DAILY@0600 [facility] Magnesium Hydroxide (Milk Of Magnesia 30 Ml Oral.Susp) 30 ml PO Q24H PRN PRN Reason: Constipation Melatonin (Melatonin 3 Mg Tablet) 6 mg PO BEDTIME PRN PRN Reason: Insomnia Methylprednisolone Sodium Succinate (Methylprednisolone Sod Succ 40 Mg/Ml Vial) 40 mg IVPUSH Q12H [facility] Last Admin: 05/27/24 05:21 Dose: 40 mg Documented By: TEE Multivitamins/Vitamin C (Multivitamin Tablet) 1 tab PO DAILY [facility] Last Admin: 05/27/24 08:28 Dose: 1 tab Documented By: ALEXA Omeprazole (Omeprazole 20 Mg Capsule.) 20 mg PO DAILY@0630 [facility] Last Admin: 05/27/24 05:21 Dose: 20 mg Documented By: TEE Pharmacy Consult (Consult Rx Vancomycin Dosing) 1 each MISCELLANE DAILY PRN PRN Reason: Consult order Sodium Biphosphate/Sodium Phosphate (Sodium Phosphate,[place]-Dibasic 133 Ml Enema) 133 ml [place] DAILY PRN PRN Reason: Constipation Sodium Chloride (0.9 % Sodium Chloride Flush 3 Ml Syringe) 3 ml IVFLUSH QSHIFT [facility] Last Admin: 05/27/24 08:27 Dose: 3 ml Documented By: ALEXA Labs 05/26/24 07:29 05/27/24 07:39 Labs: Laboratory Results - last 24 hr 05/26/24 05/27/24 05/27/24 14:56 07:25 07:39 Hold Purple Top SEE NOTE Estim Creat Clear Calc 64.1 Estimated GFR > 60 Free T4 0.42 L Random Vancomycin 14.4 L Microbiology Microbiology Results: Microbiology 05/24/24 Unknown Urine Culture - Final Urine clean catch - Clean Catch Midstream Pseudomonas aeruginosa 05/24/24 13:06 Blood Culture - Preliminary Blood - Venous No growth after 48 hours. 05/24/24 13:05 Blood Culture - Preliminary Blood - Venous No growth after 48 hours. Assessment and Plan (1) Pneumonia: Status: Acute (2) Acute hypotension: Status: Acute Plan 88-year-old male with a PMH significant for COPD, subclavian stenosis s/p stenting, HTN, CAD w/ hx of NSTEMI in 12/2016, s/p cardiac catheterization w/o stenting, and current smoker Multifocal pneumonia resulting in COPD exacerbation with chronic hypoxemic respiratory failure no fevers, cough and shortness of breath improving Leukocytosis chronic r/t myeloproliferative disorder. No sepsis CXR shows bilateral patchy opacities throughout both lungs, possibly multifocal pneumonia or atypical pneumonia but could also include asymmetric pulmonary edema. Worsened from prior exams Given multiple recent hospitalizations, on broad coverage with IV vanco and cefepime (initiated 05/24) on IV methylprednisolone 40 mg b.i.d. DuoNebs q.4h MRSA nasal swab negative April 30 Continue supplemental O2 on baseline 3 L of oxygen Monitor on above treatment if remained stable will transition to by mouth steroids and antibiotic and discharged back to rehab. Acute hypotension resolved status post IV fluid continue to have soft blood pressure at baseline closely monitor vital signs Polycythemia vera with chronic leukocytosis/thrombocytopenia outpt phlebotomy, being followed by Dr. Garzon,follow cbc CAD No anginal chest pain continue statin. Not on bb or asa. 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 PAF with history of Sustained SVT status post cardioversion currently in sinus rhythm, continue amiodorone, Eliquis held during previous hospitalization due to significant anemia and low platelets, recommend outpatient follow-up with Dr. Garzno if suitable to be placed back on Eliquis DVT prophylaxis- compression boots DNR/DNI per MOLST form Patient requires inpatient stay due to multifocal pneumonia with multiple hospital admissions recently necessitating broad-spectrum antibiotics to cover for Hcap as well as management of hypotension requiring aggressive IV fluid resuscitation and close monitoring of hemodynamics Quality Stroke Does the patient have a stroke diagnosis?: No VTE Prior VTE?: No VTE Risk Level:: Medical - moderate - high VTE Device Contraindication: Treatment Not Indicated VTE Drug Contraindication: N/A - Med Ordered
[2024-05-27] MEDS: vancomycin HCL 1,500 MG in 0.9 % Sodium Chloride 500 ML 1500 MG IV (16:27)
[2024-05-27] MEDS: Atorvastatin Calcium 20 MG TABLET PO (20:16)
[2024-05-28 03:20] VITALS: BP 127/66; PULSE 74; RESP 18; TEMP 36.6; O2SAT 97
[2024-05-28] MEDS: Omeprazole 20 MG CAPSULE.DR PO (05:23)
[2024-05-28] MEDS: Levothyroxine Sodium 75 MCG TABLET PO (05:23)
[2024-05-28] MEDS: methylPREDNISolone Sod Succ 40 MG/ML VIAL IVPUSH (05:23)
[2024-05-28 07:08] LABS: Triiodothyronine T3 Free 0.7 pg/mL (2.3-4.2)
[2024-05-28 07:14] VITALS: BP 121/76; PULSE 66; RESP 17; TEMP 36.3; O2SAT 97
[2024-05-28 07:27] LABS: Creatinine Clr Calc Pharmacy 62.4; Estimated Glomerular Filt Rate > 60
[2024-05-28] MEDS: Multivitamin TABLET 1 TAB PO (09:25)
[2024-05-28] MEDS: Amiodarone HCL 200 MG TABLET PO (09:25)
[2024-05-28] MEDS: 0.9 % Sodium Chloride Flush 3 ML SYRINGE IVFLUSH (09:25)
[2024-05-28] MEDS: Cyanocobalamin (Vitamin B-12) 1,000 MCG TABLET 1000 MCG PO (09:25)
[2024-05-28] MEDS: cefEPime HCl/D5W 2 GM/50 ML PIGGYBACK IV (09:26)
[2024-05-28] MEDS: guaiFENesin LA 600 MG TAB.ER.12H PO (09:27)
[2024-05-28 11:06] VITALS: PULSE 66; RESP 17; O2SAT 94
[2024-05-28] MEDS: Albuterol/Iprat 2.5/0.5MG 3 ML AMPUL.NEB INHALE (11:06)
[2024-05-28 11:19] VITALS: BP 133/80; PULSE 72; RESP 17; TEMP 36.5; O2SAT 99
--- NOTE | 2024-05-28 13:15 | PM.DS ---
DS: Providers Provider Date of Service: 05/28/24 Date of admission: 05/24/24 16:03 Date of discharge: 05/28/24 Primary care physician: SANJIV BOUCHER DS: Diagnosis Discharge Diagnosis (1) Pneumonia: Status: Acute (2) Acute hypotension: Status: Acute DS: Summary Hospital Course Hospital Course: History of presenting illness: Date of Service: 05/24/24 Attending physician on admission: Bartolo Fields Chief Complaint: hypoxia per snf staff 88-year-old male with a PMH significant for COPD iwth chronic hypoxemic respiratory failure on 3L, subclavian stenosis s/p stenting, HTN, CAD w/ hx of NSTEMI in 12/2016, s/p cardiac catheterization w/o stenting, and current smoker smoking 1 cigarette per day presented to the ED from SNF after SNF reportedly found the patient at 85% on 2L and were concerned about PE. Per EMS O2 90-93%. The patient reports he is comfortable but does acknowledge occassionally productive cough. Denies fevers, chills, sob, wheezing, chest pain. On arrival hypotensive with BP 62/39. Given concerns for sepsis, 30cc/kg ordered and administered without recurrence of hypotension. He also received addl 500ml LR and albumin x1. Was also tachypneic but vitals otherwise normal. Has a chronic leukocytosis with WBC 13.5- improved from priors. Remainder of hematology studies stable. Renal function baseline, electrolyte levels significant for sodium of 128 and chloride 92. BNP 148. UA not indicative of infection. Chest x-ray shows multiple bilateral opacities consistent with multifocal pneumonia versus atypical pneumonia. In the ED has received IV fluids as mentioned above, IV ceftriaxone, azithromycin. Hospital course: 88-year-old male with a PMH significant for COPD, subclavian stenosis s/p stenting, HTN, CAD w/ hx of NSTEMI in 12/2016, s/p cardiac catheterization w/o stenting, and current smoker admitted with following issues Multifocal pneumonia resulting in COPD exacerbation with chronic hypoxemic respiratory failure , with chronic Leukocytosis r/t myeloproliferative disorder. No sepsis ,CXR showed bilateral patchy opacities throughout both lungs, possibly multifocal pneumonia or atypical pneumonia but could also include asymmetric pulmonary edema,worsened from prior exams, Given multiple recent hospitalizations, treated with broad coverage with IV vanco and cefepime , IV methylprednisolone 40 mg b.i.d. and DuoNebs q.4h, patient responded well to above treatment, shortness of breath improved patient has chronic bilateral expiratory wheeze recommend to continue updraft t.i.d. Since hemodynamically stable is being discharged on 5 more days of Augmentin and doxycycline and tapering dose of steroids recommend to continue baseline oxygen 3 L Acute hypotension resolved status post IV fluid continue to have soft blood pressure at baseline, recommend to use Lasix on as needed basis for weight gain or leg edema. Polycythemia vera with chronic leukocytosis/thrombocytopenia, outpt phlebotomy, being followed by Dr. Garzon,follow cbc CAD No anginal chest pain,continue statin. Not on bb or asa. HTN soft bp. 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 PAF with history of Sustained SVT status post cardioversion currently in sinus rhythm, continue amiodorone, Eliquis held during previous hospitalization due to significant anemia and low platelets, recommend outpatient follow-up with Dr. Garzon if suitable to be placed back on Eliquis. Time Attestation Discharge Coordination Time (in mins): 40 Quality: Safe Use of Opioids Does Pt have an Active Cancer Diagnosis on the Problem List?: No Quality: Stroke Does the patient have a stroke diagnosis?: No Physical Exam Vital Signs: Vital Signs: Last Vital Signs Temp 97.7 F 05/28/24 11:19 Pulse 72 05/28/24 11:19 Resp 17 05/28/24 11:19 BP 133/80 05/28/24 11:19 Pulse Ox 99 05/28/24 11:19 O2 Del Method Nasal Cannula 05/28/24 11:19 O2 Flow Rate 3 05/28/24 11:19 Oxygen Flow Rate 2 05/24/24 12:42 BMI result Body Mass Index 27.3 Const: Other: General resting comfortably in no acute distress. Tongue white coating at lateral border Neck no JVD. CVS regular rate rhythm, Respiratory lungs bilateral exp wheeze, no acute respiratory distress. Gastrointestinal abdomen soft, non tender, bowel sounds audible Extremities no edema. Neuro non focal Skin no rash appropriate affect DS: Data Data Completed and Pending Completed studies during hospitalization [Text1]: Procedures Insertion of Infusion Device into Superior Vena Cava, Percutaneous Approach (04/28/24) Insertion of Infusion Device into Upper Vein, Percutaneous Approach (04/28/24) Introduction of Vasopressor into Peripheral Vein, Percutaneous Approach (04/28/24) [employer]an of Cardiac Rhythm, Single (02/13/24) Transfusion of Nonautologous Frozen Plasma into Peripheral Vein, Percutaneous Approach (04/28/24) Transfusion of Nonautologous Red Blood Cells into Peripheral Vein, Percutaneous Approach (04/28/24) Ultrasonography of Superior Vena Cava, Guidance (04/28/24) Labs on day of discharge: Laboratory Results - last 24 hr 05/27/24 05/27/24 05/28/24 07:39 14:58 06:47 Hold Purple Top SEE NOTE Creatinine 0.77 Estim Creat Clear Calc 62.4 Estimated GFR > 60 Free T3 0.7 L Random Vancomycin 17.0 Preliminary micro results at discharge 05/24/24 13:06 Blood Culture - Preliminary Blood - Venous No growth after 48 hours. 05/24/24 13:05 Blood Culture - Preliminary Blood - Venous No growth after 48 hours. Discharge Plan Discharge Anticipated Discharge Date/Time: 05/28/24 13:04 Patient Disposition: [facility] Discharge Diagnosis: Multifocal pneumonia Acute on chronic hypotension Hypothyroidism Referrals: SANJIV BOUCHER [Primary Care Provider] - 1 Week Discharge Medications: New amoxicillin-pot clavulanate 875-125 mg tablet 1 tab PO BID Qty: 10 0RF doxycycline monohydrate 100 mg capsule 100 mg PO BID Qty: 10 0RF prednisone 10 mg tablet 10 mg PO DIRECTED Qty: 30 0RF Rx Instructions: see taper instructions; 40 mg Daily x3 days, 30 mg daily x3 days, 20 mg daily x3 days, 10 mg daily x3 days nystatin 100,000 unit/mL Suspension 500,000 unit PO QID Qty: 250 0RF levothyroxine 75 mcg Tablet 75 mcg PO DAILY@0600 Qty: 30 0RF Continued cyanocobalamin (vitamin B-12) 1,000 mcg tablet 1,000 mcg PO DAILY albuterol sulfate 90 mcg/actuation HFA aerosol inhaler 1 puff INHALATION Q6H PRN (Reason: asthma) ipratropium-albuterol 0.5 mg-3 mg(2.5 mg base)/3 mL Solution For Nebulization 3 ml INHALATION Q4H PRN (Reason: Wheezing) pantoprazole 40 mg Tablet,Delayed Release (Dr/Ec) 40 mg PO DAILY@0630 guaifenesin 600 mg Tablet Extended Release 12hr 600 mg PO BID Trelegy Ellipta 200-62.5-25 mcg blister with device 1 inh INHALATION DAILY [id number] Tablet 1 tab PO DAILY acetaminophen 325 mg Tablet 650 mg PO Q6H PRN (Reason: pain or fever) magnesium hydroxide [Milk of Magnesia] 400 mg/5 mL Suspension 30 ml PO Q24H PRN (Reason: Constipation) bisacodyl 10 mg Suppository 10 mg [place] BEDTIME PRN (Reason: Constipation) Fleet Enema 19-7 gram/118 mL Enema 118 ml [place] DAILY PRN (Reason: Constipation) amiodarone 200 mg tablet 200 mg PO DAILY atorvastatin 20 mg tablet 20 mg PO BEDTIME Changed albuterol sulfate 2.5 mg /3 mL (0.083 %) solution for nebulization 2.5 mg inhalation TID Qty: 90 0RF furosemide 20 mg Tablet 20 mg PO DAILY PRN (Reason: edema/weight gain) Qty: 1 0RF Discontinued prednisone 10 mg tablet See Taper PO DIRECTED Taper: Prednisone 30 mg daily for 3 Days and 0 Hour 20 mg daily for 3 Days and 0 Hour 10 mg daily for 3 Days and 0 Hour Rx Instructions: see taper instructions. Prednisone 30 mg ( 05/24/24 - 05/27/24), Prednisone 20 mg (05/28/24 -05/31/24), Prednisone 10 mg (06/01/24 -06/04/24) Discharge Orders: Discharge Order (Routine); Ordered 05/28/24 Ordered By: Joycelyn Downey Diet: Advance to usual diet Activity on Discharge: As tolerated Stand Alone Forms: Patient Portal Discharge page Print Language: Bulgarian Care Plan Goals: Pneumonia take Augmentin and doxycycline for 5 more days continue cough medication Mild oral thrush take nystatin swish and spit x1 week Hypothyroidism take Synthroid 75 mcg daily before breakfast repeat TSH in 6 weeks For COPD continue updraft t.i.d. and as needed take prednisone taper Health Concerns: Use Lasix as needed for leg edema/orthopnea or weight gain greater than 2-3 lb in 24 hours or 5 lb in 1 week Plan of Treatment: Outpatient follow-up with primary care physician Assessment: As above
[2024-05-28] MEDS: Nystatin Oral Susp 500,000 UNIT/5 ML ORAL.SUSP 500000 UNIT PO (13:42)
== END 2024-05-28 14:15 | disposition skilled nursing facility (03) | DRG 190 ==
LOC: HO.ED 14:53 → HO.EDOVER 16:32 → HO.IMC 05-25 07:19
PROVIDERS: Admitting Provider Physician Assistant; Emergency Provider Emergency Medicine; PCP Emergency Medicine; Visit Provider Hospitalist
DX: J44.0 Chronic obstructive pulmonary disease with (acute) lower respiratory infection (principal); J18.9 Pneumonia, unspecified organism; D47.1 Chronic myeloproliferative disease; J96.11 Chronic respiratory failure with hypoxia; I47.10 Supraventricular tachycardia, unspecified; E22.2 Syndrome of inappropriate secretion of antidiuretic hormone; J44.1 Chronic obstructive pulmonary disease with (acute) exacerbation; I48.0 Paroxysmal atrial fibrillation; F17.210 Nicotine dependence, cigarettes, uncomplicated; Z66 Do not resuscitate; Z71.6 Tobacco abuse counseling; E03.9 Hypothyroidism, unspecified; I25.10 Atherosclerotic heart disease of native coronary artery without angina pectoris; I95.9 Hypotension, unspecified; E86.1 Hypovolemia; D45 Polycythemia vera; Z20.822 Contact with and (suspected) exposure to COVID-19; Z99.81 Dependence on supplemental oxygen; Z79.01 Long term (current) use of anticoagulants; Z79.899 Other long term (current) drug therapy
CPT/HCPCS: 0241U; 36415; 71045; 80048; 80076; 80202; 81001; 82565; 82803; 83605; 83690; 83880; 83930; 84439; 84443; 84481; 84484; 85025; 85027; 85610; 87040; 87086; 87088; 87186; 93005; 94640; 99285; J0692; J0696; J2919; J3370; J3371; J7120; P9047

== ENCOUNTER → 2024-05-24 12:49 | Outpatient (BNV) | payer MEDICARE, SELFPAY | PROVIDERS: Emergency Provider Emergency Medicine; PCP Emergency Medicine; Visit Provider Radiology Diagnostic Radiology | DX: J18.9 Pneumonia, unspecified organism (principal) | CPT/HCPCS: 71045 ==

== ENCOUNTER → 2024-05-24 12:49 | Outpatient (BNV) | payer MEDICARE, SELFPAY | PROVIDERS: Admitting Provider Physician Assistant; Emergency Provider Emergency Medicine; PCP Emergency Medicine; Visit Provider Internal Medicine | DX: I44.0 Atrioventricular block, first degree (principal); I45.9 Conduction disorder, unspecified | CPT/HCPCS: 93010 ==

== ENCOUNTER → 2024-05-24 16:03 | Outpatient (BNV) | payer MEDICARE, SELFPAY | PROVIDERS: Admitting Provider Physician Assistant; Emergency Provider Emergency Medicine; PCP Emergency Medicine; Visit Provider Physician Assistant | DX: J18.9 Pneumonia, unspecified organism (principal); I95.9 Hypotension, unspecified | CPT/HCPCS: 99223; 99233; 99239 ==

== ENCOUNTER 2024-06-13 06:58 | Inpatient (IN) | payer MEDICARE, OTHER, SELFPAY ==
[2024-06-13] VITALS (45 sets, daily range): BP systolic 52–136; BP diastolic 32–110; PULSE 63–102; RESP 16–34; TEMP 36.4–39.6; O2SAT 92–99; BMI 23.7
--- NOTE | ~2024-06-13 | XR_ITS ---
CLINICAL HISTORY: dyspnea 1 view chest x-ray Comparison: CR/SR - XR CHEST 1V - 05/24/24 13:34 EDT Findings: Bilateral patchy consolidation with worsening dense consolidation in the right lower lobe. Heart size is normal and stable. No acute fracture. IMPRESSION: 1. Worsening consolidation in the right lower lobe. This document has been electronically signed by: Brigid Haynes MD on 06/13/2024 07:54:06
--- NOTE | 2024-06-13 07:15 | ECG_ITS ---
Test Reason : DYSPNEA Blood Pressure : */* mmHG Vent. Rate : 94 BPM Atrial Rate : 94 BPM P-R Int : 238 ms QRS Dur : 116 ms QT Int : 382 ms P-R-T Axes : 71 -76 85 degrees QTcB Int : 477 ms Sinus rhythm with 1st degree A-V block Left anterior fascicular block Minimal voltage criteria for LVH, may be normal variant ( Curtis product ) Septal infarct (cited on or before 18-Jan-2017) Abnormal ECG When compared with ECG of 24-May-2024 13:49, No significant change was found Referred By: Generic ED Physician Electronically Signed By: HEATHER MARIA MD
--- NOTE | 2024-06-13 07:22 | ED_ITS ---
HPI - SOB/Dyspnea General Chief Complaint: Dyspnea Stated Complaint: ON CPAP,SOB 79% RA FROM SNF Time Seen by Provider: 06/13/24 07:21 Source: patient Mode of arrival: EMS Limitations: no limitations History of Present Illness ED Provider: Dr. Percy Jackson HPI Narrative: 88-year-old male with a PMH significant for COPD iwth chronic hypoxemic respiratory failure on 3L, subclavian stenosis s/p stenting, HTN, CAD w/ hx of NSTEMI in 12/2016, s/p cardiac catheterization w/o stenting, and current smoker who presents emergency department for evaluation of fever of 103.2 degrees F, hypoxia with an O2 saturation of 78% on 2 L via nasal cannula. Information came from EMS as reported by nursing staff the patient's SNF the patient was placed on CPAP by the paramedics and given an albuterol nebulizer in route. History is limited since the patient was having difficulty talking with the CPAP mask on. Patient was had multiple similar presentations for hypoxia secondary to pneumonia. He was discharged on Augmentin and doxycycline for 5 days. He was [place] [facility] [place] until 05/28/2024 with a discharge diagnosis of acute pneumonia and acute hypotension. In reviewing the record, the patient was sent in from his SNF for O2 saturations of 85% on 2 L via nasal cannula. Patient improved with IV antibiotics (cefepime and vancomycin), Solu- Medrol and respiratory treatment and was discharged on Augmentin and doxycycline for 5 days. Related Data Home Medications ?Medication ?Instructions ?Recorded ?Confirmed atorvastatin 20 mg tablet 20 mg PO BEDTIME 02/22/20 06/13/24 fluticasone fur. 200 mcg-umeclid 1 inh inhalation DAILY 02/13/24 06/13/24 62.5 mcg-vilant 25 mcg inhalat.powder (Trelegy Ellipta) rtfunhivezmq-vttoahup-sdzjuj tablet 1 tab PO DAILY 02/13/24 06/13/24 albuterol sulfate 90 mcg/actuation 1 puff inhalation Q6H PRN asthma 04/24/24 06/13/24 aerosol inhaler cyanocobalamin (vitamin B-12) 1,000 mcg PO DAILY 04/24/24 06/13/24 1,000 mcg tablet acetaminophen 325 mg tablet 650 mg PO Q6H PRN pain or fever 04/28/24 06/13/24 amiodarone 200 mg tablet 200 mg PO DAILY 04/28/24 06/13/24 bisacodyl 10 mg rectal suppository 10 mg DC BEDTIME PRN Constipation 04/28/24 06/13/24 magnesium hydroxide 400 mg/5 mL 30 ml PO Q24H PRN Constipation 04/28/24 06/13/24 oral suspension (Milk of Magnesia) sodium phosphates 19 gram-7 118 ml DC DAILY PRN Constipation 04/28/24 06/13/24 gram/118 mL enema (Fleet Enema) ipratropium 0.5 mg-albuterol 3 mg 3 ml inhalation Q4H PRN Wheezing 05/24/24 06/13/24 (2.5 mg base)/3 mL nebulization soln albuterol sulfate 2.5 mg/3 mL 2.5 mg inhalation Q8H PRN 06/13/24 06/13/24 (0.083 %) solution for nebulization Shortness Of Breath Or Wheezing furosemide 20 mg tablet 20 mg PO DAILY edema/weight gain 06/13/24 06/13/24 Previous Rx's ?Medication ?Instructions ?Recorded levothyroxine 75 mcg tablet 75 mcg PO DAILY@0600 #30 tabs 05/28/24 Allergies Allergy/AdvReac Type Severity Reaction Status Date / Time No Known Allergies Allergy Verified 06/13/24 07:14 [No Known Allergies*] Review of Systems 2 Review of Systems: Yes Unobtainable due to mental condition PMFSH Past Medical History Medical History Polycythemia vera COPD (chronic obstructive pulmonary disease) Leukocytosis Polycythemia Fracture High cholesterol HTN (hypertension) Heart attack Surgical History S/P angiogram of extremity Hx of rotator cuff surgery H/O arthroscopy of shoulder Family History Family History Daughter Aortic aneurysm Social History Social History Household Members: Family Housing: House Do you presently have visiting nurse or other home services: No Patient Tobacco Use Status: Never used Tobacco Tobacco use type: Cigarette Cigarette Packs Per Day: 1 Smoked in Last 30 Days: No Second Hand Smoke Exposure: No Use of substances other than those prescribed or required for medical reasons: No Advance Directives: No Advance Directives Information Provided: Yes Do you have a plan to hurt others: No Plan service: No Physical Exam 2 Vital Signs: Vital Signs: Last Vital Signs Temp 98.2 F 06/13/24 10:47 Pulse 71 06/13/24 12:19 Resp 20 06/13/24 12:19 BP 93/65 06/13/24 12:19 Pulse Ox 98 06/13/24 12:19 O2 Del Method Nasal Cannula 06/13/24 12:19 O2 Flow Rate 2.5 06/13/24 12:19 FiO2 40 06/13/24 07:10 Oxygen Flow Rate 10 06/13/24 07:10 BMI result Body Mass Index 23.7 Vital signs revealed elevated temperature of a 103.2 degrees F, elevated respiratory rate of 25, patient was on CPAP with an FiO2 of 40% with a an O2 saturation of 96 Exam: General: Awake, tachypneic, dyspneic, on CPAP by the paramedics, changed over to CPAP by respiratory therapy Head: Normocephalic, atraumatic EENT: PERRL, Lids normal, sclera normal, conjunctiva normal, nose normal , ears normal, throat without erythema or exudates Neck: Supple, no adenopathy Lung: Breath sounds were symmetric bilaterally, the patient does have rales and rhonchi at the bases with no wheezing-just received an albuterol nebulizer treatment in route Chest: symmetric movement, nontender Heart: regular rate and rhythm, normal S1, S2 no murmurs or rubs Abdomen: soft, non-tender, nondistended, normal bowel sounds Back: no vertebral tenderness, no CVAT Extremities: no deformities, moves all extremities symmetrically Neuro: Awake, alert, oriented, cranial nerves intact, moves all extremities symmetrically Psych: Pleasant, cooperative Medications Administered Generic Name Dose Route Start Last Admin Trade Name Freq PRN Reason Stop Dose Admin Norepinephrine Bitartrate 8 mg in 250 mls @ 0 mls/hr 06/13/24 11:00 06/13/24 11:40 Levophed IVCONT 0.1 mcg/kg/min .Q0M CEE 12.88 mls/hr Titration Protocol Per Protocol Lactated Ringer's 1,000 mls @ 999 mls/hr 06/13/24 12:13 06/13/24 12:16 Lr IV 06/13/24 13:13 999 mls/hr .Q1H1M STA Administration Discontinued Medications Generic Name Dose Route Start Last Admin Trade Name Sissy PRN Reason Stop Dose Admin Albuterol Sulfate 2.5 mg/ 5 mg 06/13/24 07:49 06/13/24 07:52 Albuterol Sulfate 2.5 mg INHALE 06/13/24 07:50 5 mg ONCE ONE Administration Ceftriaxone Sodium 1 gm 06/13/24 07:37 06/13/24 07:48 Ceftriaxone Sodium 1 Gm Vial IVPUSH 06/13/24 07:38 1 gm ONCE ONE Administration Sodium Chloride 2,061 mls @ 2,061 mls/hr 06/13/24 07:37 06/13/24 09:05 Ns 30 ml/kg infuse over 1 hr (2061 ml) 06/13/24 08:36 Infused IV Infusion .Q1H STA Azithromycin 500 mg/ Sodium 250 mls @ 125 mls/hr 06/13/24 07:37 06/13/24 10:09 Chloride IV 06/13/24 09:36 Infused ONCE ONE Infusion Acetaminophen 1,000 mg in 100 mls @ 400 mls/hr 06/13/24 07:40 06/13/24 08:03 Ofirmev IV 06/13/24 07:54 Infused ONCE ONE Infusion Vancomycin HCl 1,000 mg/ 535 mls @ 267.5 mls/hr 06/13/24 09:06 06/13/24 11:20 Vancomycin HCl 750 mg/ Sodium IV 06/13/24 11:05 267.5 mls/hr Chloride ONCE ONE Infusion Albumin Human 100 mls @ 133.333 mls/hr 06/13/24 10:00 06/13/24 11:07 Kedbumin 25 % IV 06/13/24 11:44 Infused Q1H CEE Infusion Cefepime HCl 2 gm in 50 mls @ 100 mls/hr 06/13/24 10:09 06/13/24 10:53 Maxipime IV 06/13/24 10:38 Infused ONCE ONE Infusion Methylprednisolone Sodium Succinate 125 mg 06/13/24 09:06 06/13/24 09:19 Methylprednisolone Sod Succ 125 Mg/2 Ml Vial IVPUSH 06/13/24 09:07 125 mg ONCE ONE Administration Medical Decision Making Medical Decision Making [facility] Narrative: 88-year-old male with a PMH significant for COPD iwth chronic hypoxemic respiratory failure on 3L, subclavian stenosis s/p stenting, HTN, CAD w/ hx of NSTEMI in 12/2016, s/p cardiac catheterization w/o stenting, and current smoker who presents emergency department for evaluation of fever of 103.2 degrees F, hypoxia with an O2 saturation of 78% on 2 L via nasal cannula. Information came from EMS as reported by nursing staff the patient's SNF the patient was placed on CPAP by the paramedics and given an albuterol nebulizer in route. Patient was changed over to BiPAP by Respiratory on presentation to the ED. patient did have elevated temperature of a 103.2 degrees and an elevated respiratory rate of 32. Patient's lung exam revealed rhonchi and rales at the bases exam was otherwise unremarkable 07:34 Differential diagnosis: ?Includes but is not limited to viral syndrome, COVID- 19, influenza, RSV, pneumonia, anemia, electrolyte abnormalities Course: 07:34 Sepsis alert was activated. 09:58 My interpretation patient's laboratory evaluation is as follows: WBC elevated 12,500. Microcytic anemia with an H&H of 11.4 and 38.7-improved from baseline chronic anemia. Low platelet count 95,000-chronic. ABG revealed a normal pH of 7.40 and a pCO2 of 55 similar to previous values. Bicarb was elevated at 34 consistent with a respiratory compensation. Lactic acid elevated 2.7. BUN elevated 22 with a normal creatinine. ALT elevated 49. Urinalysis was negative. Microscopic not consistent with an infection. COVID-19, RSV and influenza were negative Chest x-ray consistent with worsening consolidation in the right lower lobe. Patient was taken off CPAP and placed on 2.5 L of oxygen via nasal cannula with O2 saturation of 94-98. Patient was dyspnea has improved. The patient's hypotension initially improved but he was now hypotensive again therefore I ordered albumin 25 g IV x2 at 133 mL/hr. 11:03 The patient has almost completed his bolus of albumin in his still hypotensive therefore I ordered Levophed IV to support his pressure. 11:49 The patient's blood pressure is 94/62 Levophed 1.0 mcg/kg per minute. I did discuss the patient's presentation with the covering cut off saw operator metal, Dr. Sam and he will admit the patient to the intensive care unit. Admission/Observation Consideration of admission/observation: Escalation of care including admission/observation considered (Yes) Consult Healthcare Provider Management of the patient was discussed with: Scientific Linguist (Merchandising Execution Manager) Lab Data MDM Lab Attestation statement: I reviewed the patient's lab results. 06/13/24 07:42 06/13/24 07:41 Labs: Lab Results 06/13/24 06/13/24 06/13/24 Range/Units 07:30 07:41 07:42 WBC 12.5 H (4.8-10.8) X10*3/uL RBC 5.30 D (4.60-5.80) X10*6/uL Hgb 11.4 L D (14.0-18.0) g/dl Hct 38.7 L D (42.0-52.0) % MCV 73.0 L (80.0-98.0) fL MCH 21.5 L (27.0-33.0) pg MCHC 29.5 L (31.0-36.0) g/dl RDW 27.5 H (11.0-16.0) % Plt Count 95 L D (160-400) X10*3/uL MPV Not Reportable Immature Gran % (Auto) 0.7 H (0.0-0.4) % Neut % (Auto) 88.7 H (45-73) % Lymph % (Auto) 4.2 L (20-40) % Linn % (Auto) 5.6 (2-11) % Eos % (Auto) 0.6 (0-4) % Baso % (Auto) 0.2 (0-2) % Lymph # (Auto) 0.5 L (1.2-4.9) X10*3/uL Linn # (Auto) 0.7 (0.1-1.2) X10*3/uL Eos # (Auto) 0.1 (0.0-0.4) X10*3/uL Baso # (Auto) 0.0 (0.0-0.2) X10*3/uL Abs Immat Gran (auto) 0.09 H (0.00-0.03) X10*3/uL Absolute Neuts (auto) 11.1 H (2.0-8.3) x10*3/uL Absolute Nucleated RBC 0.000 (0.0-0.012) X10*3/uL Nucleated RBC % (auto) 0.0 (0.0-0.2) /100WBC VBG pH (7.32-7.43) VBG pCO2 mmHg VBG pO2 mmHg VBG HCO3 (22-26) mmol/L VBG O2 Saturation % VBG Base Excess mmol/L Sodium 132 L (135-145) mmol/L Potassium 4.5 (3.3-5.1) mmol/L Chloride 93 L (96-108) mmol/L Carbon Dioxide 28 (22-29) mmol/L Anion Gap 16 (12-20) BUN 22 H (9-16) mg/dL Creatinine 1.09 (0.5-1.4) mg/dL Estim Creat Clear Calc 43.7 Estimated GFR > 60 Random Glucose 114 (60-115) mg/dL Lactic Acid 2.7 H* (0.5-2.0) mmol/L Lactic Acid F/U @ 2Hr (0.5-2.0) mmol/L Calcium 8.5 (8.4-10.2) mg/dL Total Bilirubin (0.0-1.0) mg/dL Direct Bilirubin (0.0-0.5) mg/dL AST (5-37) U/L ALT (0-40) U/L Alkaline Phosphatase (39-117) U/L Troponin I High Sens 29.7 D (<3.5-35.0) ng/L B-Natriuretic Peptide 114 H (<100) pg/mL Total Protein (6.5-8.0) g/dL Albumin (3.5-5.0) g/dL Urine Color Urine Appearance Urine pH (5.0-9.0) Ur Specific [employer] (1.005-1.025) Urine Protein (Neg-Trace) mg/dL Urine Glucose (UA) (Negative) mg/dL Urine Ketones (Negative) mg/dL Urine Blood (Negative) Urine Nitrite (Negative) Ur Leukocyte Esterase (Negative) Urine RBC (0-2) /HPF Urine WBC (0-5) /HPF Ur Squamous Epith Cells (0-2) /HPF Urine Bacteria (None Seen) Hyaline Casts (0-2) /LPF Influenza Type A (PCR) NEGATIVE (Negative) Influenza Type B (PCR) NEGATIVE (Negative) RSV RNA Qual (PCR) NEGATIVE (Negative) SARS-CoV-2 RNA (RT-PCR) NEGATIVE (Negative) 06/13/24 06/13/24 06/13/24 Range/Units 07:49 08:01 10:21 WBC (4.8-10.8) X10*3/uL RBC (4.60-5.80) X10*6/uL Hgb (14.0-18.0) g/dl Hct (42.0-52.0) % MCV (80.0-98.0) fL MCH (27.0-33.0) pg MCHC (31.0-36.0) g/dl RDW (11.0-16.0) % Plt Count (160-400) X10*3/uL MPV Immature Gran % (Auto) (0.0-0.4) % Neut % (Auto) (45-73) % Lymph % (Auto) (20-40) % Linn % (Auto) (2-11) % Eos % (Auto) (0-4) % Baso % (Auto) (0-2) % Lymph # (Auto) (1.2-4.9) X10*3/uL Linn # (Auto) (0.1-1.2) X10*3/uL Eos # (Auto) (0.0-0.4) X10*3/uL Baso # (Auto) (0.0-0.2) X10*3/uL Abs Immat Gran (auto) (0.00-0.03) X10*3/uL Absolute Neuts (auto) (2.0-8.3) x10*3/uL Absolute Nucleated RBC (0.0-0.012) X10*3/uL Nucleated RBC % (auto) (0.0-0.2) /100WBC VBG pH 7.40 (7.32-7.43) VBG pCO2 55 mmHg VBG pO2 43 mmHg VBG HCO3 34 H (22-26) mmol/L VBG O2 Saturation 66.0 % VBG Base Excess 8.0 mmol/L Sodium (135-145) mmol/L Potassium (3.3-5.1) mmol/L Chloride (96-108) mmol/L Carbon Dioxide (22-29) mmol/L Anion Gap (12-20) BUN (9-16) mg/dL Creatinine (0.5-1.4) mg/dL Estim Creat Clear Calc Estimated GFR Random Glucose (60-115) mg/dL Lactic Acid (0.5-2.0) mmol/L Lactic Acid F/U @ 2Hr 3.1 H* (0.5-2.0) mmol/L Calcium (8.4-10.2) mg/dL Total Bilirubin 0.5 (0.0-1.0) mg/dL Direct Bilirubin 0.2 (0.0-0.5) mg/dL AST 34 (5-37) U/L ALT 49 H (0-40) U/L Alkaline Phosphatase 74 (39-117) U/L Troponin I High Sens (<3.5-35.0) ng/L B-Natriuretic Peptide (<100) pg/mL Total Protein 5.5 L (6.5-8.0) g/dL Albumin 3.2 L (3.5-5.0) g/dL Urine Color Yellow Urine Appearance Clear Urine pH 7.5 (5.0-9.0) Ur Specific [employer] 1.015 (1.005-1.025) Urine Protein Negative (Neg-Trace) mg/dL Urine Glucose (UA) Negative (Negative) mg/dL Urine Ketones Negative (Negative) mg/dL Urine Blood Negative (Negative) Urine Nitrite Negative (Negative) Ur Leukocyte Esterase Negative (Negative) Urine RBC 0-2 (0-2) /HPF Urine WBC 0-5 (0-5) /HPF Ur Squamous Epith Cells 0-2 (0-2) /HPF Urine Bacteria None Seen (None Seen) Hyaline Casts 0-2 (0-2) /LPF Influenza Type A (PCR) (Negative) Influenza Type B (PCR) (Negative) RSV RNA Qual (PCR) (Negative) SARS-CoV-2 RNA (RT-PCR) (Negative) Independent Interpretation I performed an independent interpretation of an: EKG and Plain X-Ray Interpretation: My interpretation the patient's chest x-ray is as follows: Right lower lobe infiltrate, he was x-ray My interpretation patient's 12 EKG done on 06/13/2024 at 07:22 hours is as follows: Sinus rhythm with a first-degree AV block with a rate of 94 and a DC interval 238 milliseconds, prolonged QRS duration 116 milliseconds, prolonged QTC interval of 477 milliseconds, Q-waves V1 through V3 no ST segment elevation, no ST segment depression. 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 There was no significant acute change. Radiology Impression Discussion of test interpretation with radiology: I have reviewed the radiologist's reading. Radiologist Impression: 1 view chest x-ray Comparison: CR/SR - XR CHEST 1V - 05/24/24 13:34 EDT Findings: Bilateral patchy consolidation with worsening dense consolidation in the right lower lobe. Heart size is normal and stable. No acute fracture. IMPRESSION: 1. Worsening consolidation in the right lower lobe. This document has been electronically signed by: Brigid Haynes MD on 06/13/2024 07:54:06 External Record Review External record reviewed: Inpatient record Chronic Conditions Patient?s care impacted by: Other (COPD) Critical Care Time Critical Care Time Critical Care Time: Yes Total Critical Care Time: 120 Attestation: Critical Care: The patient was critically ill with a high probability of imminent or life threatening deterioration. I spent greater than 30 minutes of discontinuous time evaluating the patient,delivering critical care at the bedside, discussing and evaluating pertinent data with consultants. Critical care time does not include time spent performing separately billable procedures or teaching. Total time spent performing critical care was 120 minutes. Discharge Plan Discharge Clinical Impression: Sepsis, Acute hypotension Pneumonia Qualifiers: Laterality: right Lung location: lower lobe of lung Patient Disposition: Admitted As Inpatient Print Language: Unable To Collect
[2024-06-13] MEDS: SODIUM CHLORIDE 2061 ML IV (07:43)
[2024-06-13 07:46] LABS: MANUAL DIFF FLAG NO
[2024-06-13] MEDS: cefTRIAXone sodium 1 GM VIAL IVPUSH (07:48)
[2024-06-13] MEDS: Acetaminophen 1,000 MG/100 ML PIGGYBACK 400 MG IV (07:48)
[2024-06-13 07:52] LABS: VBG HCO3 34 mmol/L (22-26); VBG pCO2 55 mmHg; VBG pO2 43 mmHg
[2024-06-13] MEDS: Albuterol Sulfate 2.5 MG, Albuterol Sulfate (0.083%) 2.5 MG 5 MG INHALE (07:52)
[2024-06-13 07:53] LABS: Venous Blood Gas Refer to POC result
[2024-06-13 07:54] LABS: Basophils Percent Auto 0.2 % (0-2); SCAN SMEAR FLAG 1
[2024-06-13 07:56] LABS: Eosinophils Absolute Auto 0.1 X10*3/uL (0.0-0.4); Eosinophils Percent Auto 0.6 % (0-4); Hematocrit 38.7 % (42.0-52.0); Hemoglobin 11.4 g/dl (14.0-18.0); Imm Gran Abs Auto 0.09 X10*3/uL (0.00-0.03); Imm Gran Pct Auto 0.7 % (0.0-0.4); Lymphocytes Absolute Auto 0.5 X10*3/uL (1.2-4.9); Lymphocytes Percent Auto 4.2 % (20-40); Mean Corpuscular HGB Conc 29.5 g/dl (31.0-36.0); Mean Corpuscular Hemoglobin 21.5 pg (27.0-33.0); Monocytes Absolute Auto 0.7 X10*3/uL (0.1-1.2); Monocytes Percent Auto 5.6 % (2-11); Neutrophils Absolute Auto 11.1 x10*3/uL (2.0-8.3); Neutrophils Percent Auto 88.7 % (45-73); Red Cell Distribution Width 27.5 % (11.0-16.0); White Blood Count 12.5 X10*3/uL (4.8-10.8)
[2024-06-13 07:59] LABS: Platelet Count 95 X10*3/uL (160-400)
--- OUTSIDE RECORDS SUMMARY | 2024-06-13 07:59 | XMS_ITS | Encounter Summary ---
Author Organization [facility] Address [address] [place] [address] Care Team Providers Care Dx Board Operator Name Role Phone Mark Chance MD Primary Care Provider Encounter Details Date Type Department Care Team (Late st Contact Info) Description 05/14/[address] [facility] - Main Lab [address] [place] [address] Taye Kc MD [address] [place] [address] Essential (primary) hypertension; Muscle weakness (generalized); Hyperlipidemia, [...] LAB CHEMISTRY METHOD 05/14/2024 2:31 PM EDT [facility] Potassium 4.8 3.5 - 5.5 mmol/L LAB CHEMISTRY METHOD 05/14/2024 2:31 PM EDT [facility] Chloride 97 96 - 110 mmol/L LAB CHEMISTRY METHOD 05/14/2024 2:31 PM EDT [facility] CO2 31 21 - 32 mmol/L LAB CHEMISTRY METHOD 05/14/2024 2:31 PM [facility] Anion Gap 7 3 - 11 LAB CHEMISTRY METHOD 05/14/2024 2:31 PM EDT [facility] Glucose 28(LL) 70 - 100 mg/dL LAB CHEMISTRY METHOD 05/14/2024 2:31 PM [facility] BUN 15 5 - 25 mg/dL LAB CHEMISTRY METHOD 05/14/2024 2:31 PM [facility] Creatinine 0.93 0.70 - 1.30 mg/dL LAB CHEMISTRY METHOD [facility] eGFR 79 >=60 mL/min/1. 73m2 LAB CHEMISTRY METHOD 05/14/2024 2:31 PM EDT [facility] Comment:Calculation based on the??Chronic Kidney Disease Epidemiology Collaboration (CKD-EPI) equation refit??without adjustment for race. BUN/Creatinine Ratio 16.1 LAB CHEMISTRY METHOD 05/14/2024 2:31 PM [facility] Calcium 8.0(L) 8.5 - 10.5 mg/dL LAB CHEMISTRY METHOD 05/14/2024 2:31 PM EDT [facility] Blood Venous blood specimen / Unknown Venipuncture / Unknown 05/14/2024 5:42 AM EDT 05/14/2024 11:22 AM EDT us Taye Kc MD LAB BLOOD ORDERABLES Final R esult [facility] [address] [place] [address], * (ABNORMAL) Complete blood count (05/14/2024 5:42 AM EDT) [facility] WBC 18.5(H) 4.8 - 10.8 K/mcL LAB HEMETOLOGY METHOD 05/14/2024 11:52 AM [facility] RBC 4.50 4.50 - 5.50 M/mcL LAB HEMETOLOGY METHOD 05/14/2024 11:52 AM [facility] Hemoglobin 9.6(L) 13.5 - 17.5 g/dL LAB HEMETOLOGY METHOD 05/14/2024 11:52 AM [facility] Hematocrit 34.7(L) 42.0 - 54.0 % LAB HEMETOLOGY METHOD 05/14/2024 11:52 AM [facility] MCV 77.1(L) 79.0 - 98.0 FL LAB HEMETOLOGY METHOD 05/14/2024 11:52 AM [facility] MCH 21.3(L) 27.0 - 32.0 pcg LAB HEMETOLOGY METHOD 05/14/2024 11:52 AM [facility] MCHC 27.7(L) 32.0 - 37.0 g/dL LAB HEMETOLOGY METHOD 05/14/2024 11:52 AM [facility] RDW 34.8(H) 11.0 - 15.0 % LAB HEMETOLOGY METHOD 05/14/2024 11:52 AM [facility] Platelets 70(L) 130 - 400 K/mcL LAB HEMETOLOGY METHOD 05/14/2024 11:52 AM [facility] Comment:previously verified by slide MPV LAB HEMETOLOGY METHOD 05/14/2024 11:52 AM [facility] Comment:Not Measured NRBC 0.1 <1.0 % LAB HEMETOLOGY METHOD 05/14/2024 11:52 AM EDT [facility] NRBC Absolute 0.02 <0.10 K/mcL LAB HEMETOLOGY METHOD 05/14/2024 11:52 AM EDT [facility] Blood Venous blood specimen / Unknown Venipuncture / Unknown 05/14/2024 5:42 AM EDT 05/14/2024 11:22 AM EDT us Taye Kc MD LAB BLOOD ORDERABLES Final R esult [facility] [address] [place] [address], documented in this encounter Visit Diagnoses Diagnosis Essential (primary) hypertension Unspecified essential hypertension Muscle weakness (generalized) Hyperlipidemia, unspecified documented in this encounter Care Teams Dx Board Operator Relationship Specialty Start Date End Date Mark Chance MD [address] [place] [address] [address] [place] [address] PCP - General Geriatric Medicine 04/28/24 documented as of this encounter
--- OUTSIDE RECORDS SUMMARY | 2024-06-13 07:59 | XMS_ITS ---
Author Organization Aris Garzon III, MD Address [address] [place] [address] Care Team Providers Care Senior Energy Trader Name Role Phone Dominga LÓPEZ, [facility] Primary Care Provider Aris Jeffries [phone] REASON FOR VISIT Admitted to Rehab Encounters Encounter Location Date Provider Diagnosis Aris Garzon III, MD [address] [place] [address] [place] [address] 04/28/2024 Aris Garzon Plan Of Treatment No Information Progress Notes * Ketan SHELTONOB:1935 (88 yo M)Acc No.[id number]:04/28/2024 Patient:?Garry SHELTONrona :1935???Age:88 Y???Sex:Male Address:[address] [place] [address], [id number] * true * Date:? Generated for Tee veloz/Shanell/eTransmitting on:?06/13/2024 07:59 AM EDT
--- OUTSIDE RECORDS SUMMARY | 2024-06-13 07:59 | XMS_ITS | Encounter Summary ---
Author Organization [facility] Address [address] [place] [address] Care Team Providers Care Secondary School Registrar Name Role Phone Stephanie Gillespie Primary Care Provider [phone] Encounter Details Date Type Department Care Team (Late st Contact Info) Description 05/09/2020 Orders Only [facility] 2 Rad ACT [address] [place] [address] Hernan Keen MD [address] [place] [address] Social History Tobacco Use Types Packs/Day Years [...] on filedocumented in this encounter Care Teams Secondary School Registrar Relationship Specialty Start Date End Date Stephanie Gillespie [address] [address] PCP - General Internal Medicine 04/17/20 documented as of this encounter
--- OUTSIDE RECORDS SUMMARY | 2024-06-13 07:59 | XMS_ITS | Encounter Summary ---
Author Organization [facility] Address [address] [place] [id number] Care Team Providers Care Clerical Specialist Name Role Phone Mark Chance MD Primary Care Provider [phone] Encounter Details Date Type Department Care Team (Late st Contact Info) Description 05/24/[address] [facility] - Main Lab [address] [facility] [place] [address] Taye Kc MD [address] [place] [address] Chronic obstructive pulmonary disease, unspecified (CMS/HCC V24, CMS/HCC V28) Social History Tobacco Use Types Packs/Day Years Used Date Smoking Tobacco: Never Assessed Sex and Gender Information Value Date Recorded Sex Assigned at Not on file Legal Sex Male 8:27 PM EST Gender Identity Not on file Sexual Orientation Not on file documented as of this encounter Plan of Treatment Not on file documented as of this encounter Visit Diagnoses Diagnosis Chronic obstructive pulmonary disease, unspecified (CMS/HCC V24, CMS/HCC V28) documented in this encounter Care Teams Clerical Specialist Relationship Specialty Start Date End Date Mark Chance MD [address] [place] [address] PCP - General Geriatric Medicine 04/28/24 documented as of this encounter
--- OUTSIDE RECORDS SUMMARY | 2024-06-13 07:59 | XMS_ITS | Encounter Summary ---
Author Organization [facility] Address [address] [place] [address] Care Team Providers Care Knife Setter Assembler Name Role Phone Stephanie Gillespie Primary Care Provider [phone] Encounter Details Date Type Department Care Team (Late st Contact Info) Description 04/28/2020 Orders Only [facility] 2 Rad ACT 1 [address] [place] [address] Hernan Keen MD [address] [place] [address] Social History Tobacco Use Types Packs/Day Years [...] on filedocumented in this encounter Care Teams Knife Setter Assembler Relationship Specialty Start Date End Date Stephanie Gillespie [address] [address] PCP - General Internal Medicine 04/17/20 documented as of this encounter
--- OUTSIDE RECORDS SUMMARY | 2024-06-13 07:59 | XMS_ITS | Encounter Summary ---
Author Organization [facility] Address [address] [place] [address] Care Team Providers Care Phthalic Acid Purifier Name Role Phone Mark Chance MD Primary Care Provider [phone] Encounter Details Date Type Department Care Team (Late st Contact Info) Description 05/31/2024 Lab Requisition [facility] Lab [address] [place] [address] Taye Kc MD [address] [place] [address] Hypotension, unspecified; Pneumonia, unspecified organism Social History Tobacco Use Types Packs/Day Years [...] Associated Diagnosis Comments COMPLETE BLOOD COUNT Routine 05/31/2024 8:22 AM EDT Hypotension, unspecified Pneumonia, unspecified organism BASIC METABOLIC PANEL Routine 05/31/2024 8:22 AM EDT Hypotension, unspecified Pneumonia, unspecified organism documented in this encounter Results * (ABNORMAL) Basic metabolic panel (05/31/2024 8:22 AM EDT) Sodium 129(L) 133 - 145 mmol/L LAB CHEMISTRY METHOD 05/31/2024 1:02 PM EDT [facility] Potassium 4.6 3.5 - 5.5 mmol/L LAB CHEMISTRY METHOD 05/31/2024 1:02 PM EDT [facility] Chloride 88(L) 96 - 110 mmol/L LAB CHEMISTRY METHOD 05/31/2024 1:02 PM [facility] CO2 37(H) 21 - 32 mmol/L LAB CHEMISTRY METHOD 05/31/2024 1:02 PM [facility] Anion Gap 4 3 - 11 LAB CHEMISTRY METHOD 05/31/2024 1:02 PM [facility] Glucose 72 70 - 100 mg/dL LAB CHEMISTRY METHOD 05/31/2024 1:02 PM [facility] BUN 15 5 - 25 mg/dL LAB CHEMISTRY METHOD 05/31/2024 1:02 PM [facility] Creatinine 0.82 0.70 - 1.30 mg/dL LAB CHEMISTRY METHOD 05/31/2024 1:02 PM [facility] eGFR 84 >=60 mL/min/1. 73m2 LAB CHEMISTRY METHOD 05/31/2024 1:02 PM [facility] Comment:Calculation based on the??Chronic Kidney Disease Epidemiology Collaboration (CKD-EPI) equation refit??without adjustment for race. BUN/Creatinine Ratio 18.3 LAB CHEMISTRY METHOD 05/31/2024 1:02 PM [facility] Calcium 8.7 8.5 - 10.5 mg/dL LAB CHEMISTRY METHOD 05/31/2024 1:02 PM [facility] Blood Venous blood specimen / Unknown Venipuncture / Unknown 05/31/2024 8:22 AM EDT 05/31/2024 11:26 AM EDT us Taye Kc MD LAB BLOOD ORDERABLES Final R esult [facility] [address] [place] [address], * (ABNORMAL) Complete blood count (05/31/2024 8:22 AM EDT) [facility] WBC 20.0(H) 4.8 - 10.8 K/mcL LAB HEMETOLOGY METHOD 05/31/2024 12:40 PM [facility] RBC 5.00 4.50 - 5.50 M/mcL LAB HEMETOLOGY METHOD 05/31/2024 12:40 PM [facility] Hemoglobin 10.8(L) 13.5 - 17.5 g/dL LAB HEMETOLOGY METHOD 05/31/2024 12:40 PM [facility] Hematocrit 39.5(L) 42.0 - 54.0 % LAB HEMETOLOGY METHOD 05/31/2024 12:40 PM [facility] MCV 78.8(L) 79.0 - 98.0 FL LAB HEMETOLOGY METHOD 05/31/2024 12:40 PM [facility] MCH 21.6(L) 27.0 - 32.0 pcg LAB HEMETOLOGY METHOD 05/31/2024 12:40 PM [facility] MCHC 27.3(L) 32.0 - 37.0 g/dL LAB HEMETOLOGY METHOD 05/31/2024 12:40 PM [facility] RDW 29.9(H) 11.0 - 15.0 % LAB HEMETOLOGY METHOD 05/31/2024 12:40 PM [facility] Platelets 139 130 - 400 K/mcL LAB HEMETOLOGY METHOD 05/31/2024 12:40 PM [facility] MPV LAB HEMETOLOGY METHOD 05/31/2024 12:40 PM [facility] Comment:Not Measured NRBC 0.3 <1.0 % LAB HEMETOLOGY METHOD 05/31/2024 12:40 PM [facility] NRBC Absolute 0.05 <0.10 K/mcL LAB HEMETOLOGY METHOD 05/31/2024 12:40 PM EDT [facility] Blood Venous blood specimen / Unknown Venipuncture / Unknown 05/31/2024 8:22 AM EDT 05/31/2024 11:26 AM EDT us Taye Kc MD LAB BLOOD ORDERABLES Final R esult [facility] [address] [place] [address], documented in this encounter Visit Diagnoses Diagnosis Hypotension, unspecified Pneumonia, unspecified organism documented in this encounter Care Teams Phthalic Acid Purifier Relationship Specialty Start Date End Date Mark Chance MD [address] [place] [address] [address] [place] [address] PCP - General Geriatric Medicine 04/28/24 documented as of this encounter
--- OUTSIDE RECORDS SUMMARY | 2024-06-13 08:00 | XMS_ITS | Encounter Summary ---
Author Organization [facility] Address [address] [place] [address] Care Team Providers Care Storm Door Maker Name Role Phone Mark Chance MD Primary Care Provider [phone] Encounter Details Date Type Department Care Team (Late st Contact Info) Description 04/28/2024 Lab Requisition [facility] - Main Lab [address] [facility] [place] [address] Mark Chance MD [address] [place], [place] [id number] Pneumonia, unspecified organism; Chronic obstructive pulmonary disease, unspecified (CMS/HCC V24, CMS/HCC V28); Hyperlipidemia, unspecified; Vitamin D deficiency, unspecified; Vitamin [...] LAB CHEMISTRY METHOD 04/28/2024 3:32 PM EST [facility] Blood Venous blood specimen / Unknown Venipuncture / Unknown 04/28/2024 5:40 AM EST 04/28/2024 9:54 AM EST us Mark Chance MD LAB BLOOD ORDERABLES Final Resul t [facility] [address] [place] [address], * (ABNORMAL) Vitamin D 25 hydroxy (04/28/2024 5:40 AM EST) Vit D, 25-Hydroxy 27.6(L) 30.0 - 80.0 ng/mL LAB CHEMISTRY METHOD 04/28/2024 3:03 PM EST [facility] Blood Venous blood specimen / Unknown Venipuncture / Unknown 04/28/2024 5:40 AM EST 04/28/2024 9:54 AM EST us Mark Chance MD LAB BLOOD ORDERABLES Final Resul t Performing Organization Address City/[facility]/ZIP Co de Phone Number [facility] [address] [place] [address], [place] [phone] * (ABNORMAL) Vitamin B12 (04/28/2024 5:40 AM EST) [facility] Vitamin B-12 1,889(H) 250 - 900 pcg/mL LAB CHEMISTRY METHOD 04/28/2024 3:32 PM EST [facility] Blood Venous blood specimen / Unknown Venipuncture / Unknown 04/28/2024 5:40 AM EST 04/28/2024 9:54 AM EST us Mark Chance MD LAB BLOOD ORDERABLES Final Resul t Performing Organization Address [facility]/ZIP Co de Phone Number [facility] [address] [place] [address], [place] [phone] * (ABNORMAL) Lipid panel with reflex to direct LDL (04/28/2024 5:40 AM EST) [facility] Cholesterol 149 0 - 200 mg/dL LAB CHEMISTRY METHOD 04/28/2024 2:57 PM EST [facility] Triglycerides 174(H) 0 - 150 mg/dL LAB CHEMISTRY METHOD 04/28/2024 2:57 PM [facility] HDL 62 >=40 mg/dL LAB CHEMISTRY METHOD 04/28/2024 2:57 PM EST [facility] LDL Calculated 52 0 - 100 mg/dL LAB CHEMISTRY METHOD 04/28/2024 2:57 PM [facility] VLDL Cholesterol Leroy 34.8 mg/dL LAB CHEMISTRY METHOD 04/28/2024 2:57 PM EST [facility] Non HDL Chol. (LDL+VLDL) 87 <145 mg/dL LAB CHEMISTRY METHOD 04/28/2024 2:57 PM [facility] Chol/HDL Ratio 2.4 0.0 - 4.4 LAB CHEMISTRY METHOD 04/28/2024 2:57 PM [facility] Blood Venous blood specimen / Unknown Venipuncture / Unknown 04/28/2024 5:40 AM EST 04/28/2024 9:54 AM EST us Mark Chance MD LAB BLOOD ORDERABLES Final Resul t [facility] [address] [place] [address], [place] [phone] * (ABNORMAL) Comprehensive metabolic panel (04/28/2024 5:40 AM EST) Sodium 143 133 - 145 mmol/L LAB CHEMISTRY METHOD 04/28/2024 3:27 PM [facility] Potassium 4.0 3.5 - 5.5 mmol/L LAB CHEMISTRY METHOD 04/28/2024 3:27 PM [facility] Chloride 103 96 - 110 mmol/L LAB CHEMISTRY METHOD 04/28/2024 3:27 PM [facility] CO2 26 21 - 32 mmol/L LAB CHEMISTRY METHOD 04/28/2024 3:27 PM [facility] Anion Gap 14(H) 3 - 11 LAB CHEMISTRY METHOD 04/28/2024 3:27 PM [facility] Glucose 15(LL) 70 - 100 mg/dL LAB CHEMISTRY METHOD 04/28/2024 3:27 PM [facility] BUN 24 5 - 25 mg/dL LAB CHEMISTRY METHOD 04/28/2024 3:27 PM [facility] Creatinine 1.39(H) 0.70 - 1.30 mg/dL LAB CHEMISTRY METHOD 04/28/2024 3:27 PM EST [facility] eGFR 49(L) >=60 mL/min/1. 73m2 LAB CHEMISTRY METHOD 04/28/2024 3:27 PM [facility] Comment:Calculation based on the??Chronic Kidney Disease Epidemiology Collaboration (CKD-EPI) equation refit??without adjustment for race. BUN/Creatinine Ratio 17.3 LAB CHEMISTRY METHOD 04/28/2024 3:27 PM [facility] Calcium 8.8 8.5 - 10.5 mg/dL LAB CHEMISTRY METHOD 04/28/2024 3:27 PM [facility] AST (SGOT) 35 10 - 42 unit/L LAB CHEMISTRY METHOD 04/28/2024 3:27 PM [facility] ALT (SGPT) 37 10 - 60 unit/L LAB CHEMISTRY METHOD 04/28/2024 3:27 PM [facility] Alkaline Phosphatase 139(H) 42 - 121 unit/L LAB CHEMISTRY METHOD 04/28/2024 3:27 PM [facility] Total Protein 7.4 6.0 - 8.0 g/dL LAB CHEMISTRY METHOD 04/28/2024 3:27 PM [facility] Albumin 3.8 3.2 - 5.0 g/dL LAB CHEMISTRY METHOD 04/28/2024 3:27 PM [facility] Total Bilirubin 0.5 0.0 - 1.4 mg/dL LAB CHEMISTRY METHOD 04/28/2024 3:27 PM [facility] Blood Venous blood specimen / Unknown Venipuncture / Unknown 04/28/2024 5:40 AM EST 04/28/2024 9:54 AM EST us Mark Chance MD LAB BLOOD ORDERABLES Final Resul t [facility] [address] [place] [address], * (ABNORMAL) Complete blood count (04/28/2024 5:40 AM EST) [facility] WBC 37.3(H) 4.8 - 10.8 K/mcL LAB HEMETOLOGY METHOD 04/28/2024 11:44 AM [facility] RBC 6.50(H) 4.50 - 5.50 M/mcL LAB HEMETOLOGY METHOD 04/28/2024 11:44 AM [facility] Hemoglobin 10.7(L) 13.5 - 17.5 g/dL LAB HEMETOLOGY METHOD 04/28/2024 11:44 AM [facility] Hematocrit 41.8(L) 42.0 - 54.0 % LAB HEMETOLOGY METHOD 04/28/2024 11:44 AM [facility] MCV 63.9(L) 79.0 - 98.0 FL LAB HEMETOLOGY METHOD 04/28/2024 11:44 AM [facility] MCH 16.4(L) 27.0 - 32.0 pcg LAB HEMETOLOGY METHOD 04/28/2024 11:44 AM [facility] MCHC 25.6(L) 32.0 - 37.0 g/dL LAB HEMETOLOGY METHOD 04/28/2024 11:44 AM [facility] RDW 29.5(H) 11.0 - 15.0 % LAB HEMETOLOGY METHOD 04/28/2024 11:44 AM [facility] Platelets 353 130 - 400 K/mcL LAB HEMETOLOGY METHOD 04/28/2024 11:44 AM [facility] MPV LAB HEMETOLOGY METHOD 04/28/2024 11:44 AM [facility] Comment:Not Measured NRBC 0.3 <1.0 % LAB HEMETOLOGY METHOD 04/28/2024 11:44 AM [facility] NRBC Absolute 0.11(H) <0.10 K/mcL LAB HEMETOLOGY METHOD 04/28/2024 11:44 AM EST [facility] Blood Venous blood specimen / Unknown Venipuncture / Unknown 04/28/2024 5:40 AM EST 04/28/2024 9:54 AM EST Mark Chance MD LAB BLOOD ORDERABLES Final Resul t [facility] [address] [place] [address], documented in this encounter Visit Diagnoses Diagnosis Pneumonia, unspecified organism Chronic obstructive pulmonary disease, unspecified (CMS/HCC V24, CMS/HCC V28) Hyperlipidemia, unspecified Vitamin D deficiency, unspecified Vitamin B12 deficiency anemia, unspecified documented in this encounter Care Teams Storm Door Maker Relationship Specialty Start Date End Date Mark Chance MD [address] [place] [address] [address] [place] [address] PCP - General Geriatric Medicine 04/28/24 documented as of this encounter
--- OUTSIDE RECORDS SUMMARY | 2024-06-13 08:00 | XMS_ITS ---
Author Organization Aris Garzon III, MD Address [address] [place] [address] Care Team Providers Care Store Warehouse Associate Name Role Phone Dominga LÓPEZ, Stephanie Primary Care Provider Aris Jeffries [phone] REASON FOR VISIT follow up Encounters Encounter Location Date Provider Diagnosis Aris Garzon III, MD [address] [place] [address] [place] [address] 02/27/2024 Aris Garzon Plan Of Treatment No Information Progress Notes * Ketan SHELTONOB:1935 (88 yo M)Acc No.[id number]:02/27/2024 Progress Notes Patient:?Wyatt SHELTON Provider:?Aris Garzon MD :1935???Age:88 Y???Sex:Male Mati e:02/27/2024 Address:[address] [place], [place] [address] Pcp:Stephanie Orr MD Subjective: * Chief Complaints: [...] Provider:?Aris Garzon MD Date:?04/2024 Generated for Caydeni ng/Faxing/eTransmitting on:?06/13/2024 07:59 AM EDT
--- OUTSIDE RECORDS SUMMARY | 2024-06-13 08:00 | XMS_ITS | Encounter Summary ---
Author Organization [facility] Address [address] [place] [address] Care Team Providers Care Residential Sales Consultant Name Role Phone Mark Chance MD Primary Care Provider [phone] Encounter Details Date Type Department Care Team (Late st Contact Info) Description 05/04/2024 Lab Requisition [facility] - Main Lab [address] [facility] [place] [address] Mark Chance MD [address] [place], [place] [id number] Essential (primary) hypertension; Pneumonia, unspecified organism; Chronic [...] V28) documented in this encounter Care Teams Residential Sales Consultant Relationship Specialty Start Date End Date Mark Chance MD [address] [place] [address] PCP - General Geriatric Medicine 04/28/24 documented as of this encounter
--- OUTSIDE RECORDS SUMMARY | 2024-06-13 08:00 | XMS_ITS | Referral Summary ---
Author Organization [facility] Address [address] [place] [address] Care Team Providers Care Officer Lieutenant Name Role Phone Stephanie Gillespie Primary Care Provider [phone] Allergies No known active allergies Medications atorvastatin [...] on file Medical Devices Implanted Type Area 4 H Youth Development Specialist Device Identifier Shelf Expiration Date Model / Serial / Lot Patch Carotid Peripatch [id number] Xenosure - [id number] Implanted:Qty: 1 on 06/19/2020 by Bo Brooks MD at [facility] Implant Right: Groin LEMAITRE VASCULAR 02/20/2026 [id number] / / [id number] Description:Soaked in 500 ml of NACL for 2 mins prior to implanting. NACL lot # [id number]. Exp date April 2023 Stent Vascular Balloon Expandable [id number] Vi[employer]ahn - [id number] - [id number] Implanted:Qty: 1 on 06/19/2020 by Bo Brooks MD at [facility] Stent Right: Sera GARVIN 09/21/2022 [id number] / [id number] / Description:iliac Insurance [facility] Advance Directives * Full Code (Latest Code Status on File) Date Activated Date Inactivated Comments 06/19/2020 10:39 AM 06/20/2020 5:25 PM Care Teams Officer Lieutenant Relationship Specialty Start Date End Date Stephanie Gillespie [address] [address] PCP - General Internal Medicine 04/17/20
--- OUTSIDE RECORDS SUMMARY | 2024-06-13 08:00 | XMS_ITS | Encounter Summary ---
Author Organization [facility] Address [address] [place] [address] Care Team Providers Care Pediatric Allergist Name Role Phone Mark Chance MD Primary Care Provider [phone] Encounter Details Date Type Department Care Team (Late st Contact Info) Description 05/10/2024 Lab Requisition [facility] - Main Lab [address] [facility] [place] [address] Taye Kc MD [address] [place] [address] Elevated white blood cell count, unspecified; Respiratory failure, unspecified, unspecified whether with hypoxia or hypercapnia (CMS/HCC V24, CMS/HCC V28); Hypoxemia Social History Tobacco Use Types Packs/Day [...] Comprehensive metabolic panel (05/10/2024 10:34 AM EDT) Sodium 136 133 - 145 mmol/L LAB CHEMISTRY METHOD 05/10/2024 2:08 PM [facility] Potassium 3.8 3.5 - 5.5 mmol/L LAB CHEMISTRY METHOD 05/10/2024 2:08 PM [facility] Chloride 97 96 - 110 mmol/L LAB CHEMISTRY METHOD 05/10/2024 2:08 PM [facility] CO2 29 21 - 32 mmol/L LAB CHEMISTRY METHOD 05/10/2024 2:08 PM [facility] Anion Gap 10 3 - 11 LAB CHEMISTRY METHOD 05/10/2024 2:08 PM [facility] Glucose 60(L) 70 - 100 mg/dL LAB CHEMISTRY METHOD 05/10/2024 2:08 PM [facility] BUN 15 5 - 25 mg/dL LAB CHEMISTRY METHOD 05/10/2024 2:08 PM [facility] Creatinine 0.84 0.70 - 1.30 mg/dL LAB CHEMISTRY METHOD 05/10/2024 2:08 PM [facility] eGFR 84 >=60 mL/min/1. 73m2 LAB CHEMISTRY METHOD 05/10/2024 2:08 PM [facility] Comment:Calculation based on the??Chronic Kidney Disease Epidemiology Collaboration (CKD-EPI) equation refit??without adjustment for race. BUN/Creatinine Ratio 17.9 LAB CHEMISTRY METHOD 05/10/2024 2:08 PM [facility] Calcium 7.7(L) 8.5 - 10.5 mg/dL LAB CHEMISTRY METHOD 05/10/2024 2:08 PM [facility] AST (SGOT) 23 10 - 42 unit/L LAB CHEMISTRY METHOD 05/10/2024 2:08 PM [facility] ALT (SGPT) 22 10 - 60 unit/L LAB CHEMISTRY METHOD 05/10/2024 2:08 PM [facility] Alkaline Phosphatase 89 42 - 121 unit/L LAB CHEMISTRY METHOD 05/10/2024 2:08 PM EDT [facility] Total Protein 5.2(L) 6.0 - 8.0 g/dL LAB CHEMISTRY METHOD 05/10/2024 2:08 PM EDT [facility] Albumin 2.8(L) 3.2 - 5.0 g/dL LAB CHEMISTRY METHOD 05/10/2024 2:08 PM EDT [facility] Total Bilirubin 1.5(H) 0.0 - 1.4 mg/dL LAB CHEMISTRY METHOD 05/10/2024 2:08 PM EDT [facility] Blood Venous blood specimen / Unknown Venipuncture / Unknown 05/10/2024 10:34 AM EDT 05/10/2024 12:12 PM EDT Taye Kc MD LAB BLOOD ORDERABLES Final R esult [facility] [address] [place] [address], * (ABNORMAL) Complete blood count (05/10/2024 10:34 AM EDT) WBC 22.1(H) 4.8 - 10.8 K/mcL LAB HEMETOLOGY METHOD 05/10/2024 2:55 PM EDT [facility] RBC 4.00(L) 4.50 - 5.50 M/mcL LAB HEMETOLOGY METHOD 05/10/2024 2:55 PM EDT [facility] Hemoglobin 8.4(L) 13.5 - 17.5 g/dL LAB HEMETOLOGY METHOD 05/10/2024 2:55 PM EDT [facility] Hematocrit 29.8(L) 42.0 - 54.0 % LAB HEMETOLOGY METHOD 05/10/2024 2:55 PM EDT [facility] MCV 75.3(L) 79.0 - 98.0 FL LAB HEMETOLOGY METHOD 05/10/2024 2:55 PM EDT [facility] MCH 21.2(L) 27.0 - 32.0 pcg LAB HEMETOLOGY METHOD 05/10/2024 2:55 PM EDT [facility] MCHC 28.2(L) 32.0 - 37.0 g/dL LAB HEMETOLOGY METHOD 05/10/2024 2:55 PM EDT [facility] RDW 35.3(H) 11.0 - 15.0 % LAB HEMETOLOGY METHOD 05/10/2024 2:55 PM EDT [facility] Platelets 71(L) 130 - 400 K/mcL LAB HEMETOLOGY METHOD 05/10/2024 2:55 PM EDT [facility] Comment:Large platelets seen . Reviewed by slide MPV LAB HEMETOLOGY METHOD 05/10/2024 2:55 PM EDT [facility] Comment:Not Measured NRBC 0.0 <1.0 % LAB HEMETOLOGY METHOD 05/10/2024 2:55 PM EDT [facility] NRBC Absolute 0.00 <0.10 K/mcL LAB HEMETOLOGY METHOD 05/10/2024 2:55 PM EDT [facility] Blood Venous blood specimen / Unknown Venipuncture / Unknown 05/10/2024 10:34 AM EDT 05/10/2024 12:12 PM EDT us Taye cK MD LAB BLOOD ORDERABLES Final R esult [facility] [address] [place] [address], documented in this encounter Visit Diagnoses Diagnosis Elevated white blood cell count, unspecified Respiratory failure, unspecified, unspecified whether with hypoxia or hypercapnia (CMS/HCC V24, CMS/HCC V28) Hypoxemia documented in this encounter Care Teams Pediatric Allergist Relationship Specialty Start Date End Date Mark Chance MD [address] [place] [address] [address] [place] [address] PCP - General Geriatric Medicine 04/28/24 documented as of this encounter
--- OUTSIDE RECORDS SUMMARY | 2024-06-13 08:00 | XMS_ITS | Patient Health Record ---
Author Organization Aris Garzon III, MD Address [address] [place] [address] Care Team Providers Care Manager Data Name Role Phone Dominga LÓPEZ, [facility] Primary Care Provider Aris Jeffries Unavailable [phone] Allergies Allergen (clinical drug ingredient) Drug/Non Drug [...] Problem Status W/U Status Risk Notes Problem 11745311 Hyperlipidemia (E78.5) Active confirmed Comprehensive bloodwork with a fasting profile has been ordered. These will be forwarded to primary care. Problem Polycythemia vera (619307900) Polycythemia vera (D45) Active confirmed He has been well controlled without need for aggressive treatment. Compressive blood work has been ordered to be done in the next few days. Problem 872493708 B12 deficiency (E53.8) Active confirmed Comprehensive blood work is not available. It was ordered with a vitamin B12 level. He will continue on supplementation . 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 I offered to do so today but he declined wanting to stay on the current dose. Problem 16937448 Coronary artery disease (I25.10) Active confirmed He denies a ny recent angina and has had no hospitalization s. He has been compliant wwith his medication. Problem 18043398 Tobacco dependence (F17.200) Active confirmed I strongly encourage smoking cessation. We have discussed several strategies for this. He continues to smoke up packages of cigarettes daily. Problem 965053827 Major depression (F32.9) Active confirmed He is no longer depressed and says he feels well. However, he has missed several appointments, which is a long-standing pattern with him and his family. Problem 86472037 COPD (chronic obstructive pulmonary disease) (J44.9) Active confirmed He is breat cielo room air comfortably. He spoke with me on the phone at length. He was continuing her current medications. I strongly recommended smoking cessation. Problem 729355623 Pulmonary nodule (R91.1) Active confirmed Problem 57531956 Colonic polyp (K63.5) Active confirmed Problem 203710794 Peripheral arterial disease (I73.9) Active confirmed 2 weeks ago, he had vascular surgery to reverse mass to the office on the right groin for occlusive disease. He now has what appears to be a deep venous thrombosis right lower extremity below the knee. He was sent for an ultrasound of the emergency room. Problem 328065404 Macrocytosis (D75.89) Active confirmed Compprehensive blood work witth a CBC has been ordered. Problem 712426616 Rotator cuff tea r (M75.100) Active confirmed The PSA has fallen from 5.9-3.0. If we'll be followed carefully without treatment. Problem 515184418 Atrial tachycardia (I47.1) Active confirmed He denies any episodes of tachycardia recently. He controlled sinus rhythm today. Problem Benign prostatic hypertrophy without outflow obstruction (594986868) Benign prostatic hyperplasia, unspecified whether lower urinary tract symptoms present (N40.0) Active confirmed His prostatism is stable twice a night. We reviewed lifestyle modifications accordingly made to reduce nocturia. Encounters Encounter Location Date Provider Diagnosis Aris Garzon III, MD [address] [place] [address] [address] LEUNG [address] [place] [address], [place] [id number] 04/28/2024 Aris Garzon Plan Of Treatment Pending [...] Date [employer] PREFERRED [address] [place] [address] [id number] Wyatt Shelton Self - patient is the insured MEDICARE NGS [address] [place] [phone] [id number] Wyatt Shelton Self - patient is the [...]
--- OUTSIDE RECORDS SUMMARY | 2024-06-13 08:00 | XMS_ITS | Encounter Summary ---
Author Organization [facility] Address [address] [place] [address] Care Team Providers Care Trim Setter Name Role Phone Mark Chance MD Primary Care Provider [phone] Encounter Details Date Type Department Care Team (Late st Contact Info) Description 05/24/[address] [facility] - Main Lab [address] [facility] [place] [address] Taye Kc MD [address], [place] [id number] Anemia, unspecified; Chronic obstructive pulmonary disease with (acute) lower respiratory infection (CMS/HCC V24, CMS/HCC V28); Wheezing; Acute respiratory failure with hypoxia (CMS/HCC V24, CMS/HCC V28); Chronic obstructive pulmonary disease, unspecified (CMS/HCC V24, CMS/HCC V28); Essential (primary) hypertension Social History Tobacco Use [...] LAB CHEMISTRY METHOD 05/24/2024 11:45 AM EDT [facility] Blood Venous blood specimen / Unknown Venipuncture / Unknown 05/24/2024 10:12 AM EDT 05/24/2024 10:53 AM EDT us Taye Kc MD LAB BLOOD ORDERABLES Final R esult [facility] [address] [place] [address], * (ABNORMAL) Complete blood count (05/24/2024 10:12 AM EDT) [facility] WBC 13.6(H) 4.8 - 10.8 K/mcL LAB HEMETOLOGY METHOD 05/24/2024 11:05 AM [facility] RBC 4.70 4.50 - 5.50 M/mcL LAB HEMETOLOGY METHOD 05/24/2024 11:05 AM [facility] Hemoglobin 10.3(L) 13.5 - 17.5 g/dL LAB HEMETOLOGY METHOD 05/24/2024 11:05 AM [facility] Hematocrit 36.6(L) 42.0 - 54.0 % LAB HEMETOLOGY METHOD 05/24/2024 11:05 AM [facility] MCV 77.4(L) 79.0 - 98.0 FL LAB HEMETOLOGY METHOD 05/24/2024 11:05 AM [facility] MCH 21.8(L) 27.0 - 32.0 pcg LAB HEMETOLOGY METHOD 05/24/2024 11:05 AM [facility] MCHC 28.1(L) 32.0 - 37.0 g/dL LAB HEMETOLOGY METHOD 05/24/2024 11:05 AM EDT [facility] RDW 31.3(H) 11.0 - 15.0 % LAB HEMETOLOGY METHOD 05/24/2024 11:05 AM EDT [facility] Platelets 101(L) 130 - 400 K/mcL LAB HEMETOLOGY METHOD 05/24/2024 11:05 AM EDT [facility] MPV LAB HEMETOLOGY METHOD 05/24/2024 11:05 AM EDT [facility] Comment:Not Measured NRBC 0.0 <1.0 % LAB HEMETOLOGY METHOD 05/24/2024 11:05 AM EDT [facility] NRBC Absolute 0.00 <0.10 K/mcL LAB HEMETOLOGY METHOD 05/24/2024 11:05 AM EDT [facility] Blood Venous blood specimen / Unknown Venipuncture / Unknown 05/24/2024 10:12 AM EDT 05/24/2024 10:53 AM EDT Taye Kc MD LAB BLOOD ORDERABLES Final R esult [facility] [address] [place] [address], documented in this encounter Visit Diagnoses Diagnosis Anemia, unspecified Chronic obstructive pulmonary disease with (acute) lower respiratory infection (CMS/HCC V24, CMS/HCC V28) Wheezing Acute respiratory failure with hypoxia (CMS/HCC V24, CMS/HCC V28) Chronic obstructive pulmonary disease, unspecified (CMS/HCC V24, CMS/HCC V28) Essential (primary) hypertension Unspecified essential hypertension documented in this encounter Care Teams Trim Setter Relationship Specialty Start Date End Date Mark Chance MD [address] [place] [address] [address] [place] [address] PCP - General Geriatric Medicine 04/28/24 documented as of this encounter
--- OUTSIDE RECORDS SUMMARY | 2024-06-13 08:00 | XMS_ITS | Encounter Summary ---
Author Organization [facility] Address [address] [place] [address] Care Team Providers Care Railroad Engineer Name Role Phone Mark Chance MD Primary Care Provider Encounter Details Date Type Department Care Team (Late st Contact Info) Description 06/04/2024 Lab Requisition [facility] - Main Lab [address] [facility] [place] [address] Taye Kc MD [address] [place], [place] [id number] Pneumonia, unspecified organism; Essential (primary) hypertension; Unspecified atrial fibrillation (CMS/HCC V24, CMS/HCC V28); Anemia, unspecified Social History Tobacco Use Types Packs/Day [...] Associated Diagnosis Comments COMPLETE BLOOD COUNT Routine 06/07/2024 8:28 AM EDT Pneumonia, unspecified organism Essential (primary) hypertension Unspecified atrial fibrillation (CMS/HCC V24, CMS/HCC V28) Anemia, unspecified COMPREHENSIVE METABOLIC PANEL Routine 06/07/2024 8:28 AM EDT Pneumonia, unspecified organism Essential (primary) hypertension Unspecified atrial fibrillation (CMS/HCC V24, CMS/HCC V28) Anemia, unspecified documented in this encounter Results * (ABNORMAL) Comprehensive metabolic panel (06/07/2024 8:28 AM EDT) Sodium 130(L) 133 - 145 mmol/L LAB CHEMISTRY METHOD 06/07/2024 11:26 AM [facility] Potassium 4.5 3.5 - 5.5 mmol/L LAB CHEMISTRY METHOD 06/07/2024 11:26 AM [facility] Chloride 89(L) 96 - 110 mmol/L LAB CHEMISTRY METHOD 06/07/2024 11:26 AM [facility] CO2 39(H) 21 - 32 mmol/L LAB CHEMISTRY METHOD 06/07/2024 11:26 AM [facility] Anion Gap 2(L) 3 - 11 LAB CHEMISTRY METHOD 06/07/2024 11:26 AM [facility] Glucose 63(L) 70 - 100 mg/dL LAB CHEMISTRY METHOD 06/07/2024 11:26 AM [facility] BUN 20 5 - 25 mg/dL LAB CHEMISTRY METHOD 06/07/2024 11:26 AM [facility] Creatinine 0.94 0.70 - 1.30 mg/dL LAB CHEMISTRY METHOD 06/07/2024 11:26 AM [facility] eGFR 78 >=60 mL/min/1. 73m2 LAB CHEMISTRY METHOD 06/07/2024 11:26 AM [facility] Comment:Calculation based on the??Chronic Kidney Disease Epidemiology Collaboration (CKD-EPI) equation refit??without adjustment for race. BUN/Creatinine Ratio 21.3 LAB CHEMISTRY METHOD 06/07/2024 11:26 AM [facility] Calcium 8.4(L) 8.5 - 10.5 mg/dL LAB CHEMISTRY METHOD 06/07/2024 11:26 AM [facility] AST (SGOT) 13 10 - 42 unit/L LAB CHEMISTRY METHOD 06/07/2024 11:26 AM [facility] ALT (SGPT) 21 10 - 60 unit/L LAB CHEMISTRY METHOD 06/07/2024 11:26 AM EDT [facility] Alkaline Phosphatase 87 42 - 121 unit/L LAB CHEMISTRY METHOD 06/07/2024 11:26 AM T [facility] Total Protein 5.2(L) 6.0 - 8.0 g/dL LAB CHEMISTRY METHOD 06/07/2024 11:26 AM [facility] Albumin 2.8(L) 3.2 - 5.0 g/dL LAB CHEMISTRY METHOD 06/07/2024 11:26 AM [facility] Total Bilirubin 0.5 0.0 - 1.4 mg/dL LAB CHEMISTRY METHOD 06/07/2024 11:26 AM [facility] Blood Venous blood specimen / Unknown Venipuncture / Unknown 06/07/2024 8:28 AM EDT 06/07/2024 10:08 AM EDT Taye Kc MD LAB BLOOD ORDERABLES Final R esult [facility] [address] [place] [address], * (ABNORMAL) Complete blood count (06/07/2024 8:28 AM EDT) WBC 20.9(H) 4.8 - 10.8 K/mcL LAB HEMETOLOGY METHOD 06/07/2024 11:37 AM [facility] RBC 4.30(L) 4.50 - 5.50 M/mcL LAB HEMETOLOGY METHOD 06/07/2024 11:37 AM [facility] Hemoglobin 9.4(L) 13.5 - 17.5 g/dL LAB HEMETOLOGY METHOD 06/07/2024 11:37 AM [facility] Hematocrit 33.2(L) 42.0 - 54.0 % LAB HEMETOLOGY METHOD 06/07/2024 11:37 AM [facility] MCV 77.0(L) 79.0 - 98.0 FL LAB HEMETOLOGY METHOD 06/07/2024 11:37 AM EDT [facility] MCH 21.8(L) 27.0 - 32.0 pcg LAB HEMETOLOGY METHOD 06/07/2024 11:37 AM EDT [facility] MCHC 28.3(L) 32.0 - 37.0 g/dL LAB HEMETOLOGY METHOD 06/07/2024 11:37 AM EDT [facility] RDW 28.3(H) 11.0 - 15.0 % LAB HEMETOLOGY METHOD 06/07/2024 11:37 AM EDT [facility] Platelets 88(L) 130 - 400 K/mcL LAB HEMETOLOGY METHOD 06/07/2024 11:37 AM EDT [facility] Comment:previously verified by slide MPV LAB HEMETOLOGY METHOD 06/07/2024 11:37 AM EDT [facility] Comment:Not Measured NRBC 0.0 <1.0 % LAB HEMETOLOGY METHOD 06/07/2024 11:37 AM EDT [facility] NRBC Absolute 0.00 <0.10 K/mcL LAB HEMETOLOGY METHOD 06/07/2024 11:37 AM T [facility] Blood Venous blood specimen / Unknown Venipuncture / Unknown 06/07/2024 8:28 AM EDT 06/07/2024 10:08 AM EDT us Taye Kc MD LAB BLOOD ORDERABLES Final R esult [facility] [address] [place] [address], documented in this encounter Visit Diagnoses Diagnosis Pneumonia, unspecified organism Essential (primary) hypertension Unspecified essential hypertension Unspecified atrial fibrillation (CMS/HCC V24, CMS/HCC V28) Anemia, unspecified documented in this encounter Care Teams Railroad Engineer Relationship Specialty Start Date End Date Mark Chance MD [address] [place] [address] [address] [place] [address] PCP - General Geriatric Medicine 04/28/24 documented as of this encounter
--- OUTSIDE RECORDS SUMMARY | 2024-06-13 08:00 | XMS_ITS | Encounter Summary ---
Author Organization [facility] Address [address] [place] [address] Care Team Providers Care Photoresist Printer Name Role Phone Mark Chance MD Primary Care Provider [phone] Encounter Details Date Type Department Care Team (Late st Contact Info) Description 06/11/2024 Lab Requisition [facility] - Main Lab [address] [facility] [place] [address] Taye Kc MD [address] [place] [address] Unspecified atrial fibrillation (CMS/HCC V24, CMS/HCC V28); Anemia, unspecified Social History Tobacco Use Types Packs/Day Years Used Date Smoking Tobacco: Never Assessed Sex and Gender Information Value Date Recorded Sex Assigned at Not on file Legal Sex Male 8:27 PM EST Gender Identity Not on file Sexual Orientation Not on file documented as of this encounter Plan of Treatment Scheduled Orders Name Type Priority Associated Diagnoses Orde r Schedule Comprehensive metabolic panel Lab Routine Unspecified atrial fibrillation (CMS/HCC V24, CMS/HCC V28) Anemia, unspecified Ordered: 06/11/2024 Complete blood count Lab Routine Unspecified atrial fibrillation (CMS/HCC V24, CMS/HCC V28) Anemia, unspecified Ordered: 06/11/2024 documented as of this encounter Visit Diagnoses Diagnosis Unspecified atrial fibrillation (CMS/HCC V24, CMS/HCC V28) Anemia, unspecified documented in this encounter Care Teams Photoresist Printer Relationship Specialty Start Date End Date Mark Chance MD [address] [place] [address] PCP - General Geriatric Medicine 04/28/24 documented as of this encounter
--- OUTSIDE RECORDS SUMMARY | 2024-06-13 08:00 | XMS_ITS | Clinical Summary ---
Author Organization [facility] Address [address] [place] [address] Care Team Providers Care Marine Design Engineer Name Role Phone Stephanie Gillespie Primary Care Provider [phone] Allergies No known active allergies Medications atorvastatin [...] Vaccine (1 - 2023-2 5 season) 2023 Alcohol/Substance Use Screening 02/25/2024 Health Care Proxy Review 02/25/2024 Influenza Vaccine (Season Ended) 2024 02/03/2020, 01/19/2017, 11/24/2014 Hepatitis B Vaccines Aged Out No long er eligible based on patient's age to complete this topic Medical Devices Implanted Type Area International Sourcing Manager Device Identifier Shelf Expiration Date Model / Serial / Lot Patch Carotid Peripatch [id number] Xenosure - [id number] Implanted:Qty: 1 on 06/19/2020 by Bo Brooks MD at [facility] Implant Right: Groin LEMAITRE VASCULAR 02/20/2026 [id number] / / [id number] Description:Soaked in 500 ml of NACL for 2 mins prior to implanting. NACL lot # [id number]. Exp date April 2023 Stent Vascular Balloon Expandable [id number] Viabahn - [id number] - [id number] Implanted:Qty: 1 on 06/19/2020 by Bo Brooks MD at [facility] Stent Right: Groin W L GORE 09/21/2022 [id number] / [id number] / Description:iliac Insurance [place] [address] Advance Directives * Full Code (Latest Code Status on File) Date Activated Date Inactivated Comments 06/19/2020 10:39 AM 06/20/2020 5:25 PM Care Teams Marine Design Engineer Relationship Specialty Start Date End Date Stephanie Gillespie [address] [address] PCP - General Internal Medicine 04/17/20
--- OUTSIDE RECORDS SUMMARY | 2024-06-13 08:00 | XMS_ITS ---
Author Organization Aris Garzon III, MD Address [address] [place] [address] [place] [address] Care Team Providers Care Cut Off Saw Operator Metal Name Role Phone Dominga LÓPEZ, [facility] Primary Care Provider Aris Jeffries [phone] Allergies Allergen (clinical drug ingredient) Drug/Non Drug [...] Date Provider Diagnosis Aris Garzon III, MD [address] [place] [address] [place] [address] 04/16/2024 Aris Garzon B12 deficiency E53.8 Assessments [...] Notes * Ketan SHELTONOB:1935 (88 yo M)Acc No.[id number]:04/16/2024 Progress Notes Patient:?Valentin SHELTONmarcellus Provider:?Aris Garzon MD :1935???Age:88 Y???Sex:Male Mati e:04/16/2024 Address:[address] [place] [address] MELANIE Mandujano [phone] Pcp:Stephanie Orr MD Subjective: * Chief Complaints: [...] ankle , right rotator cuff surgery 03/1990, [facility] vein surgery 05/2020. * Hospitalization/Major Diagno stic [...] been for many years. He lives in [place], [place]. He is retired. He consumes about [...] Garzon MD Date:?03/28 Generated for Tee veloz/Shanell/Rodriitting on:?06/13/2024 08:00 AM EDT History and Physical Notes * HPI [...]
[2024-06-13 08:02] LABS: Anion Gap 16 (12-20); Blood Urea Nitrogen 22 mg/dL (9-16); Calcium 8.5 mg/dL (8.4-10.2); Carbon Dioxide 28 mmol/L (22-29); Chloride 93 mmol/L (96-108); Creatinine Clr Calc Pharmacy 43.7; Estimated Glomerular Filt Rate > 60; Glucose Random 114 mg/dL (60-115); Potassium 4.5 mmol/L (3.3-5.1); Sodium 132 mmol/L (135-145)
[2024-06-13 08:02] LABS: PLT ABN DIST 1
[2024-06-13 08:04] LABS: Lactic Acid 2.7 mmol/L (0.5-2.0)
[2024-06-13 08:08] LABS: Appearance Urine Clear; Color Urine Yellow; Glucose Urine UA Negative (Negative); Leukocyte Esterase Urine Negative (Negative); Nitrite Urine Negative (Negative); PH 7.5 (5.0-9.0); Specific Gravity - Urine 1.015 (1.005-1.025); Urine Blood Negative (Negative); Urine Ketones Negative (Negative); Urine Protein Negative (Neg-Trace)
[2024-06-13] MEDS: Azithromycin 500 MG in 0.9 % Sodium Chloride 250 ML 125 MG IV (08:09)
[2024-06-13 08:10] LABS: Troponin-I High Sensitivity 29.7 ng/L (<3.5-35.0)
[2024-06-13 08:10] LABS: B Type Natriuretic Peptide 114 pg/mL (<100)
[2024-06-13 08:12] LABS: Influenza A PCR NEGATIVE (Negative); Influenza B PCR NEGATIVE (Negative); Resp Syncy Virus RNA Qual PCR NEGATIVE (Negative); SARS COV2 PCR INHOUSE NEGATIVE (Negative)
[2024-06-13 08:13] LABS: Bacteria Urine None Seen (None Seen); Hyaline Casts Urine 0-2 /LPF (0-2); RBC Urine 0-2 /HPF (0-2); Squamous Epithelial Cell Urine 0-2 /HPF (0-2); WBC Urine 0-5 /HPF (0-5)
[2024-06-13 08:20] LABS: Alanine Aminotransferase 49 U/L (0-40); Albumin Level 3.2 g/dL (3.5-5.0); Alkaline Phosphatase 74 U/L (39-117); Aspartate Amino Transferase 34 U/L (5-37); Bilirubin Direct 0.2 mg/dL (0.0-0.5); Bilirubin Total 0.5 mg/dL (0.0-1.0); Total Protein 5.5 g/dL (6.5-8.0)
--- NOTE | 2024-06-13 08:20 | PC.NURSE ---
patient a&ox3, iv previously inserted by ems, labs drawn by education and training manager, ekg performed, piper helper applied- nsr-st on monitor, nasal swab/urine obtained, sepsis protocol was started- ivf started, abx given per order, tylenol given for fever- pt denies pain at this time, upon arrival patients rr was labored, lungs course crackles and diminished throughout, RT at bedside put on hospital cpap- 10 @ 40%- pts rr continues to be in the 30s, bilateral legs are cool/mottled, coccyx is blanching red. call singh within reach, plan of care ongoing.
--- NOTE | 2024-06-13 08:46 | PC.NURSE ---
IVF IVF continue to run slowly
[2024-06-13] MEDS: methylPREDNISolone Sod Succ 125 MG/2 ML VIAL IVPUSH (09:19)
[2024-06-13 09:44] LABS: Reflex Lactate? Lactic Acid Added
--- NOTE | 2024-06-13 09:55 | PC.NURSE ---
called pharmacy for missing med
--- NOTE | 2024-06-13 09:59 | PC.NURSE ---
provider notified of pts blood pressures
[2024-06-13] MEDS: Albumin Human 25 % 100 ML 133.33 ML IV ×2 (10:20→10:21)
[2024-06-13] MEDS: cefEPime HCl/D5W 2 GM/50 ML PIGGYBACK IV (10:23)
--- NOTE | 2024-06-13 10:27 | PHA.MEDREC ---
Addendum entered by Meghan Hurd RPh 06/13/24 10:34: Reviewed by [facility] Original Note: Pharmacy Consult ? Medication Reconciliation Pharmacy has completed the medication reconciliation. Utilized list from [facility] to confirm med list.
[2024-06-13 10:45] LABS: ~Lactic Acid-LAB USE ONLY 3.1 mmol/L (0.5-2.0)
[2024-06-13] MEDS: vancomycin HCL 1,000 MG, vancomycin HCL 750 MG in 0.9 % Sodium Chloride 500 ML 267.5 MG IV (10:49)
--- NOTE | 2024-06-13 10:50 | PC.NURSE ---
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
[2024-06-13] MEDS: Norepinephrine Bitartrate/D5W 8 MG/250 ML PLAST..BAG 6.44 MG IVCONT (11:06)
--- NOTE | 2024-06-13 11:07 | PC.NURSE ---
pt started on norepi per order
--- NOTE | 2024-06-13 11:42 | PC.NURSE ---
titration per request of ED provider pt was increased to 0.1 mcg/kg/min= 12.88 ml/hr.
[2024-06-13] MEDS: Lactated Ringers 1,000 ML 999 ML IV (12:16)
--- NOTE | 2024-06-13 12:17 | PC.NURSE ---
additional ivf started per order
[2024-06-13 12:23] LABS: Reflex Lactate? 2 Y
--- NOTE | 2024-06-13 12:24 | PC.NURSE ---
son is at bedside speaking with ED provider
--- NOTE | 2024-06-13 12:38 | PC.NURSE ---
pt watch pts son took the patients watch home with him so it doesnt get lost, pt did ask him to do this in the presence of this nurse.
--- NOTE | 2024-06-13 13:11 | W.PM.CCCN ---
History of Present Illness Data of Consult Service Date: 06/13/24 Primary Care Provider: Stephanie Orr MD [facility] Reason for consult: Hypotension 88-year-old gentleman with past medical history of COPD on home 3L O2, CAD, hypertension JAK2-positive myeloproliferative disorder chronic leukocytosis, subclavian stenosis s/p stenting with recurrent hospitalization for pneumonia in the past month was brought in from a rehab after he was found cyanosed. Patient was at his baseline yesterday, no complaints; this morning he was found cyanosed in his room so EMS was called,initially was placed on a CPAP support but as the oxygenation improved he is back to his baseline oxygen requirement. His blood pressures were low received sepsis bolus fluids, started on Levophed so MICU was consulted. Review of Systems Constitutional: Constitutional: Reports anorexia, Denies body ache(s) and Denies chills Eyes: Eyes: Denies blind spots and Denies blurry vision ENT: Denies bleeding gums and Denies dysphagia Cardiovascular: Cardiovascular: Denies Abdominal Distension, Denies acrocyanosis, Denies chest pain, Denies chest pain at rest and Denies dyspnea Respiratory: Respiratory: Reports change in phlegm color, Denies chest congestion, Reports cough, Denies pain with cough and Denies dyspnea Gastrointestinal: Gastrointestinal: Denies change in bowel habits and Denies dysphagia Genitourinary: Genitourinary: Denies hematospermia and Denies change in libido Musculoskeletal: Musculoskeletal: Denies abnormal gait and Denies back pain Neurologic: Denies abnormal gait and Denies behavioral changes Psychiatric: Psychiatric: Denies behavioral changes and Denies change in libido Endocrine: Endocrine: Denies change in libido [facility] Past Medical History Medical History Polycythemia vera COPD (chronic obstructive pulmonary disease) Leukocytosis Polycythemia Fracture High cholesterol HTN (hypertension) Heart attack Family History Family History Daughter Aortic aneurysm Surgical History Surgical History S/P angiogram of extremity Hx of rotator cuff surgery H/O arthroscopy of shoulder Social History Social History Household Members: Family Housing: House Do you presently have visiting nurse or other home services: No Patient Tobacco Use Status: Never used Tobacco Tobacco use type: Cigarette Cigarette Packs Per Day: 1 Smoked in Last 30 Days: No Second Hand Smoke Exposure: No Use of substances other than those prescribed or required for medical reasons: No Advance Directives: No Advance Directives Information Provided: Yes Do you have a plan to hurt others: No Plan service: No Meds Allergies Allergy/AdvReac Type Severity Reaction Status Date / Time No Known Allergies Allergy Verified 06/13/24 07:14 [No Known Allergies*] Active Medications: Current Medications Norepinephrine Bitartrate (Levophed) 8 mg in 250 mls @ 0 mls/hr IVCONT .Q0M CEE; Protocol Last Titration: 06/13/24 11:40 Dose: 0.1 mcg/kg/min, 12.88 mls/hr Lactated Ringer's (Lr) 1,000 mls @ 999 mls/hr IV .Q1H1M STA Stop: 06/13/24 13:13 Last Admin: 06/13/24 12:16 Dose: 999 mls/hr Home Medications ?Medication ?Instructions ?Recorded ?Confirmed ?Last Taken ?Type atorvastatin 20 mg tablet 20 mg PO BEDTIME 02/22/20 06/13/24 06/12/24 History fluticasone fur. 200 mcg-umeclid 1 inh inhalation DAILY 02/13/24 06/13/24 06/12/24 History 62.5 mcg-vilant 25 mcg inhalat.powder (Trelegy Ellipta) ynkrqaichvwn-gbrfedcp-pmrrbt tablet 1 tab PO DAILY 02/13/24 06/13/24 06/12/24 History albuterol sulfate 90 mcg/actuation 1 puff inhalation Q6H PRN asthma 04/24/24 06/13/24 Unknown History aerosol inhaler cyanocobalamin (vitamin B-12) 1,000 mcg PO DAILY 04/24/24 06/13/24 06/12/24 History 1,000 mcg tablet acetaminophen 325 mg tablet 650 mg PO Q6H PRN pain or fever 04/28/24 06/13/24 Unknown History amiodarone 200 mg tablet 200 mg PO DAILY 04/28/24 06/13/24 06/12/24 History bisacodyl 10 mg rectal suppository 10 mg [place] BEDTIME PRN Constipation 04/28/24 06/13/24 Unknown History magnesium hydroxide 400 mg/5 mL 30 ml PO Q24H PRN Constipation 04/28/24 06/13/24 Unknown History oral suspension (Milk of Magnesia) sodium phosphates 19 gram-7 118 ml [place] DAILY PRN Constipation 04/28/24 06/13/24 Unknown History gram/118 mL enema (Fleet Enema) ipratropium 0.5 mg-albuterol 3 mg 3 ml inhalation Q4H PRN Wheezing 05/24/24 06/13/24 Unknown History (2.5 mg base)/3 mL nebulization soln albuterol sulfate 2.5 mg/3 mL 2.5 mg inhalation Q8H PRN 06/13/24 06/13/24 Unknown History (0.083 %) solution for nebulization Shortness Of Breath Or Wheezing furosemide 20 mg tablet 20 mg PO DAILY edema/weight gain 06/13/24 06/13/24 06/12/24 History Physical Exam Vital Signs: Vital Signs: Last Vital Signs Temp 98.2 F 06/13/24 10:47 Pulse 72 06/13/24 12:49 Resp 20 06/13/24 12:49 BP 103/71 06/13/24 12:49 Pulse Ox 96 06/13/24 12:49 O2 Del Method Nasal Cannula 06/13/24 12:49 O2 Flow Rate 2.5 06/13/24 12:49 FiO2 40 06/13/24 07:10 Oxygen Flow Rate 10 06/13/24 07:10 BMI result Body Mass Index 23.7 General: Elderly male, slightly drowsy, sleeping in the bed in some distress Nutritional Appearance: well nourished and overweight Eyes: appearance normal, both eyes and all related structures; Alignment and Position: alignment normal and position normal Neck: No lymphadenopathy, no thyromegaly Resp: bilateral air entry equal, crackles heard in the right lung base Cardio: Regular rate, regular rhythm; Heart sounds: S1 normal heart sound present and S2 normal heart sound present GI: soft, nontender, no guarding, no hepatosplenomegaly : bladder normal to inspection, bladder normal to palpation, no renal angle tenderness Skin: no rashes or lesions noted and elasticity normal Neuro: oriented to person, oriented to place, oriented to time and moves all extremities Results Labs 06/13/24 07:42 06/13/24 07:41 Labs: Short CBC 06/13/24 Range/Units 07:42 WBC 12.5 H (4.8-10.8) X10*3/uL Hgb 11.4 L D (14.0-18.0) g/dl Hct 38.7 L D (42.0-52.0) % Plt Count 95 L D (160-400) X10*3/uL BMP 06/13/24 07:41 Sodium 132 L Potassium 4.5 Chloride 93 L Carbon Dioxide 28 BUN 22 H Creatinine 1.09 Calcium 8.5 Liver Function 06/13/24 Range/Units 08:01 Total Bilirubin 0.5 (0.0-1.0) mg/dL Direct Bilirubin 0.2 (0.0-0.5) mg/dL AST 34 (5-37) U/L ALT 49 H (0-40) U/L Alkaline Phosphatase 74 (39-117) U/L Albumin 3.2 L (3.5-5.0) g/dL Urine 06/13/24 Range/Units 08:01 Urine Color Yellow Urine Appearance Clear Urine pH 7.5 (5.0-9.0) Ur Specific [place] 1.015 (1.005-1.025) Urine Protein Negative (Neg-Trace) mg/dL Urine Glucose (UA) Negative (Negative) mg/dL Assessment and Plan (1) NSTEMI (non-ST elevated myocardial infarction): Status: Acute (2) Supraventricular tachycardia: Status: Acute (3) Sustained SVT: Status: Acute (4) Sepsis: Status: Acute (5) Pneumonia: Status: Acute (6) Hematoma: Status: Acute Plan Septic Shock: Possibly secondary to right lower lobe pneumonia Received sepsis bolus fluid, lactate trended, blood cultures sent and antibiotics started On Levophed support, titrate Levophed to keep map above 65 mm Hg Bedside echo showed normal LV systolic function, IVC 1.1 cm collapsible after sepsis bolus. Giving him another L of normal saline and we will wean Levophed as tolerated Paroxysmal atrial fibrillation: With hold off on rate control medication due to low blood pressures We will hold off on anticoagulation get due extensive intramuscular bleeding leading to hematoma in the right arm and continuous Zosyn through the central line site during the previous hospitalization Acute hypoxemic respiratory failure due to right lower lobe pneumonia Need to rule out silent aspiration given recurrent pneumonias Breathing stable on nasal cannula oxygen Lactic acidosis: Secondary to a combination of hypoxia and hypovolemia We will trend lactate it volume and oxygen replenishment GI: Bedside swallow eval and feeds as tolerated Heme: Chronic anemia, closely monitor H&H, transfuse for hemoglobin less than 7 grams/deciliter Infectious disease: We will send pancultures We will escalate antibiotics to Zosyn given recent hospitalization and institutionalization We will get MRSA nares, respiratory viral panel Musculoskeletal: Decubitus ulcer prevention protocol Lines: Peripheral Prophylaxis: Lovenox, pantoprazole Total time managing care of this patient today: 35 minutes.
[2024-06-13 13:13] LABS: ~Lactic Acid-LAB USE ONLY 3.6 mmol/L (0.5-2.0)
--- NOTE | 2024-06-13 13:18 | PC.NURSE ---
patient has been sustaining BP with norepi infusion, map has also increased, this nurse spoke with ED provider about lowering rate to 0.09, upon this conversation ICU provider called and requested that this nurse gradually reduce the infusion and if his pressure decreases to tiger text and let him know. patients infusion has been decreased to 0.09 per provider request, potline monitor continues to be NSR.
--- NOTE | 2024-06-13 13:31 | P.HPCC_ITS ---
History of Present Illness Date of Service: 06/13/24 Chief Complaint: Hypotension 88-year-old gentleman with past medical history of COPD on home 3L O2, CAD, hypertension JAK2-positive myeloproliferative disorder chronic leukocytosis, subclavian stenosis s/p stenting with recurrent hospitalization for pneumonia in the past month was brought in from a rehab after he was found cyanosed. Patient was at his baseline yesterday, no complaints; this morning he was found cyanosed in his room so EMS was called,initially was placed on a CPAP support but as the oxygenation improved he is back to his baseline oxygen requirement. His blood pressures were low received sepsis bolus fluids, started on Levophed so MICU was consulted. Review of Systems 2 Review of Systems: Constitutional: Constitutional: Re ports anorexia, De nies body ache(s) and Denies chills Eyes: Eyes: Denies blind spots and Denies blurry vision ENT: Denies bleeding gu ms and Denies dysp hagia Cardiovascular: Cardiovascular: De nies Abdominal Dis tension, Denies ac rocyanosis, Denies chest pain, Denie s chest pain at re st and Denies dysp jesica Respiratory: Respiratory: Repor ts change in phleg m color, Denies ch est congestion, Re ports cough, Denie s pain with cough and Denies dyspnea Gastrointestinal: Gastrointestinal: Denies change in b owel habits and De nies dysphagia Genitourinary: Genitourinary: Den ies hematospermia and Denies change in libido Musculoskeletal: Musculoskeletal: D enies abnormal gai t and Denies back pain Neurologic: Denies abnormal ga it and Denies beha vioral changes Psychiatric: Psychiatric: Denie s behavioral menon es and Denies schafer ge in libido Endocrine: Endocrine: Denies change in libido [facility] Past Medical History Medical History Polycythemia vera COPD (chronic obstructive pulmonary disease) Leukocytosis Polycythemia Fracture High cholesterol HTN (hypertension) Heart attack Family History Family History Daughter Aortic aneurysm Surgical History Surgical History S/P angiogram of extremity Hx of rotator cuff surgery H/O arthroscopy of shoulder Social History Social History Household Members: Family Housing: House Do you presently have visiting nurse or other home services: No Patient Tobacco Use Status: Never used Tobacco Tobacco use type: Cigarette Cigarette Packs Per Day: 1 Smoked in Last 30 Days: No Second Hand Smoke Exposure: No Use of substances other than those prescribed or required for medical reasons: No Advance Directives: No Advance Directives Information Provided: Yes Do you have a plan to hurt others: No Plan service: No Meds Allergies Allergy/AdvReac Type Severity Reaction Status Date / Time No Known Allergies Allergy Verified 06/13/24 07:14 [No Known Allergies*] Active Medications: Current Medications Norepinephrine Bitartrate (Levophed) 8 mg in 250 mls @ 0 mls/hr IVCONT .Q0M CEE; Protocol Last Titration: 06/13/24 13:17 Dose: 0.09 mcg/kg/min, 11.59 mls/hr Home Medications ?Medication ?Instructions ?Recorded ?Confirmed ?Last Taken ?Type atorvastatin 20 mg tablet 20 mg PO BEDTIME 02/22/20 06/13/24 06/12/24 History fluticasone fur. 200 mcg-umeclid 1 inh inhalation DAILY 02/13/24 06/13/24 06/12/24 History 62.5 mcg-vilant 25 mcg inhalat.powder (Trelegy Ellipta) xceqsgcdoyda-dqdlmpcd-brrlby tablet 1 tab PO DAILY 02/13/24 06/13/24 06/12/24 History albuterol sulfate 90 mcg/actuation 1 puff inhalation Q6H PRN asthma 04/24/24 06/13/24 Unknown History aerosol inhaler cyanocobalamin (vitamin B-12) 1,000 mcg PO DAILY 04/24/24 06/13/24 06/12/24 History 1,000 mcg tablet acetaminophen 325 mg tablet 650 mg PO Q6H PRN pain or fever 04/28/24 06/13/24 Unknown History amiodarone 200 mg tablet 200 mg PO DAILY 04/28/24 06/13/24 06/12/24 History bisacodyl 10 mg rectal suppository 10 mg [place] BEDTIME PRN Constipation 04/28/24 06/13/24 Unknown History magnesium hydroxide 400 mg/5 mL 30 ml PO Q24H PRN Constipation 04/28/24 06/13/24 Unknown History oral suspension (Milk of Magnesia) sodium phosphates 19 gram-7 118 ml [place] DAILY PRN Constipation 04/28/24 06/13/24 Unknown History gram/118 mL enema (Fleet Enema) ipratropium 0.5 mg-albuterol 3 mg 3 ml inhalation Q4H PRN Wheezing 05/24/24 06/13/24 Unknown History (2.5 mg base)/3 mL nebulization soln albuterol sulfate 2.5 mg/3 mL 2.5 mg inhalation Q8H PRN 06/13/24 06/13/24 Unknown History (0.083 %) solution for nebulization Shortness Of Breath Or Wheezing furosemide 20 mg tablet 20 mg PO DAILY edema/weight gain 06/13/24 06/13/24 06/12/24 History Physical Exam 2 Vital Signs: Vital Signs: Last Vital Signs Temp 98.2 F 06/13/24 10:47 Pulse 76 06/13/24 13:29 Resp 22 H 06/13/24 13:29 BP 106/70 06/13/24 13:29 Pulse Ox 92 06/13/24 13:29 O2 Del Method Nasal Cannula 06/13/24 13:29 O2 Flow Rate 2.5 06/13/24 13:29 FiO2 40 06/13/24 07:10 Oxygen Flow Rate 10 06/13/24 07:10 BMI result Body Mass Index 23.7 General: Elderly male, slightly drowsy, sleeping in the bed in some distress Nutritional Appearance: well nourished and overweight Eyes: appearance normal, both eyes and all related structures; Alignment and Position: alignment normal and position normal Neck: No lymphadenopathy, no thyromegaly Resp: bilateral air entry equal, crackles heard in the right lung base Cardio: Regular rate, regular rhythm; Heart sounds: S1 normal heart sound present and S2 normal heart sound present GI: soft, nontender, no guarding, no hepatosplenomegaly : bladder normal to inspection, bladder normal to palpation, no renal angle tenderness Skin: no rashes or lesions noted and elasticity normal Neuro: oriented to person, oriented to place, oriented to time and moves all extremities Results Labs 06/13/24 07:42 06/13/24 07:41 Labs: Laboratory Results - last 24 hr 04/06/13/24 06/13/24 07:30 07:41 07:42 MCV 73.0 L MCH 21.5 L MCHC 29.5 L RDW 27.5 H Plt Count 95 L D MPV Not Reportable Immature Gran % (Auto) 0.7 H Neut % (Auto) 88.7 H Lymph % (Auto) 4.2 L [place] % (Auto) 5.6 Eos % (Auto) 0.6 Baso % (Auto) 0.2 Lymph # (Auto) 0.5 L [place] # (Auto) 0.7 Eos # (Auto) 0.1 Baso # (Auto) 0.0 Abs Immat Gran (auto) 0.09 H Absolute Neuts (auto) 11.1 H Absolute Nucleated RBC 0.000 Nucleated RBC % (auto) 0.0 VBG pH VBG pCO2 VBG pO2 VBG HCO3 VBG O2 Saturation VBG Base Excess Anion Gap 16 Estim Creat Clear Calc 43.7 Estimated GFR > 60 Random Glucose 114 Lactic Acid 2.7 H* Lactic Acid F/U @ 2Hr Lactic Acid F/U @ 4Hr Calcium 8.5 Total Bilirubin Direct Bilirubin AST ALT Alkaline Phosphatase B-Natriuretic Peptide 114 H Total Protein Albumin Urine Color Urine Appearance Urine pH Ur Specific [place] Urine Protein Urine Glucose (UA) Urine Ketones Urine Blood Urine Nitrite Ur Leukocyte Esterase Urine RBC Urine WBC Ur Squamous Epith Cells Urine Bacteria Hyaline Casts Influenza Type A (PCR) NEGATIVE Influenza Type B (PCR) NEGATIVE RSV RNA Qual (PCR) NEGATIVE SARS-CoV-2 RNA (RT-PCR) NEGATIVE 06/13/24 06/13/24 06/13/24 07:49 08:01 10:21 MCV MCH MCHC RDW Plt Count MPV Immature Gran % (Auto) Neut % (Auto) Lymph % (Auto) [place] % (Auto) Eos % (Auto) Baso % (Auto) Lymph # (Auto) [place] # (Auto) Eos # (Auto) Baso # (Auto) Abs Immat Gran (auto) Absolute Neuts (auto) Absolute Nucleated RBC Nucleated RBC % (auto) VBG pH 7.40 VBG pCO2 55 VBG pO2 43 VBG HCO3 34 H VBG O2 Saturation 66.0 VBG Base Excess 8.0 Anion Gap Estim Creat Clear Calc Estimated GFR Random Glucose Lactic Acid Lactic Acid F/U @ 2Hr 3.1 H* Lactic Acid F/U @ 4Hr Calcium Total Bilirubin 0.5 Direct Bilirubin 0.2 AST 34 ALT 49 H Alkaline Phosphatase 74 B-Natriuretic Peptide Total Protein 5.5 L Albumin 3.2 L Urine Color Yellow Urine Appearance Clear Urine pH 7.5 Ur Specific [place] 1.015 Urine Protein Negative Urine Glucose (UA) Negative Urine Ketones Negative Urine Blood Negative Urine Nitrite Negative Ur Leukocyte Esterase Negative Urine RBC 0-2 Urine WBC 0-5 Ur Squamous Epith Cells 0-2 Urine Bacteria None Seen Hyaline Casts 0-2 Influenza Type A (PCR) Influenza Type B (PCR) RSV RNA Qual (PCR) SARS-CoV-2 RNA (RT-PCR) 06/13/24 12:45 MCV MCH MCHC RDW Plt Count MPV Immature Gran % (Auto) Neut % (Auto) Lymph % (Auto) [place] % (Auto) Eos % (Auto) Baso % (Auto) Lymph # (Auto) [place] # (Auto) Eos # (Auto) Baso # (Auto) Abs Immat Gran (auto) Absolute Neuts (auto) Absolute Nucleated RBC Nucleated RBC % (auto) VBG pH VBG pCO2 VBG pO2 VBG HCO3 VBG O2 Saturation VBG Base Excess Anion Gap Estim Creat Clear Calc Estimated GFR Random Glucose Lactic Acid Lactic Acid F/U @ 2Hr Lactic Acid F/U @ 4Hr 3.6 H* Calcium Total Bilirubin Direct Bilirubin AST ALT Alkaline Phosphatase B-Natriuretic Peptide Total Protein Albumin Urine Color Urine Appearance Urine pH Ur Specific [place] Urine Protein Urine Glucose (UA) Urine Ketones Urine Blood Urine Nitrite Ur Leukocyte Esterase Urine RBC Urine WBC Ur Squamous Epith Cells Urine Bacteria Hyaline Casts Influenza Type A (PCR) Influenza Type B (PCR) RSV RNA Qual (PCR) SARS-CoV-2 RNA (RT-PCR) Assessment and Plan (1) NSTEMI (non-ST elevated myocardial infarction): Status: Acute (2) Acute hypotension: Status: Acute (3) Carotid stenosis, bilateral: Status: Acute (4) Stenosis of left subclavian artery: Status: Acute (5) Left leg cellulitis: Status: Acute (6) Sepsis: Status: Acute Plan Septic Shock: Possibly secondary to right lower lobe pneumonia Received sepsis bolus fluid, lactate trended, blood cultures sent and antibiotics started On Levophed support, titrate Levophed to keep map above 65 mm Hg Bedside echo showed normal LV systolic function, IVC 1.1 cm collapsible after sepsis bolus. Giving him another L of normal saline and we will wean Levophed as tolerated Paroxysmal atrial fibrillation: With hold off on rate control medication due to low blood pressures We will hold off on anticoagulation get due extensive intramuscular bleeding leading to hematoma in the right arm and continuous Zosyn through the central line site during the previous hospitalization Acute hypoxemic respiratory failure due to right lower lobe pneumonia Need to rule out silent aspiration given recurrent pneumonias Breathing stable on nasal cannula oxygen Lactic acidosis: Secondary to a combination of hypoxia and hypovolemia We will trend lactate it volume and oxygen replenishment GI: Bedside swallow eval and feeds as tolerated Heme: Chronic anemia, closely monitor H&H, transfuse for hemoglobin less than 7 grams/deciliter Infectious disease: We will send pancultures We will escalate antibiotics to Zosyn given recent hospitalization and institutionalization We will get MRSA nares, respiratory viral panel Musculoskeletal: Decubitus ulcer prevention protocol Lines: Peripheral Prophylaxis: Lovenox, pantoprazole Total time managing care of this patient today: 35 minutes.
--- NOTE | 2024-06-13 13:57 | PC.NURSE ---
Dr. Sam was notified of patients blood pressure of 94/64 map of 74, pt is on norepi at 0.07. Provider had wanted him titrated down to see how he would do, provider has decided to put admission orders for the patient to go to ICU additionally he has asked that we hold the norepi at 0.07.
--- NOTE | 2024-06-13 14:45 | PC.NURSE ---
report given to icu
[2024-06-13] MEDS: Piperacillin Sodium/Tazobactam 4.5 GM in 0.9 % Sodium Chloride 100 ML IV ×2 (14:53→20:17)
[2024-06-13] MEDS: Enoxaparin Sodium 40 MG/0.4 ML SYRINGE SUBCUT (15:01)
[2024-06-13] MEDS: Lactated Ringers 1,000 ML 100 ML IVCONT (15:01)
[2024-06-13 15:21] LABS: Phosphorus 3.8 mg/dL (2.7-4.5)
--- NOTE | 2024-06-13 17:47 | PC.NURSE ---
The patient arrived at the ICU approx. at 1450 from ED. Admitted to ICU due to persistent hypotension requiring vasopressor support.? Neuro: Alert & oriented? Respiratory: upon initial assessment on 4L NC, now 2L NC. Coarse breath sounds bilateral bases, expiratory wheezing. Cardiac: Sinus rhythm, on norepinephrine per APR, MAP goal >65. Dr. Sam? aware of above vitals. GI/: LBM? 06/12, +bowel sounds, noted to cough with dinner, made NPO awaiting speech swallowing evaluation,? External catheter in place. Infectious:? IV antibiotic, cultures pending. Lines: peripheral IVs
[2024-06-14] VITALS (26 sets, daily range): BP systolic 91–135; BP diastolic 52–88; PULSE 65–80; RESP 16–28; TEMP 36.1–36.6; O2SAT 2–94; BMI 23.7
[2024-06-14] MEDS: Piperacillin Sodium/Tazobactam 4.5 GM in 0.9 % Sodium Chloride 100 ML IV ×4 (01:00→19:49)
[2024-06-14] MEDS: Lactated Ringers 1,000 ML 100 ML IVCONT (01:00)
[2024-06-14 05:06] LABS: VBG Base Excess 1.6 mmol/L; VBG HCO3 25 mmol/L (22-26); VBG pCO2 38 mmHg; VBG pH 7.43 (7.32-7.43); VBG pO2 37 mmHg
[2024-06-14 05:09] LABS: Venous Blood Gas Refer to POC result
[2024-06-14 05:12] LABS: Basophils Percent Auto 0.1 % (0-2); Hematocrit 25.2 % (42.0-52.0); Hemoglobin 7.3 g/dl (14.0-18.0); Imm Gran Abs Auto 0.15 X10*3/uL (0.00-0.03); Imm Gran Pct Auto 1.5 % (0.0-0.4); Lymphocytes Absolute Auto 0.3 X10*3/uL (1.2-4.9); Lymphocytes Percent Auto 3.4 % (20-40); MANUAL DIFF FLAG SCAN; Mean Corpuscular Hemoglobin 21.5 pg (27.0-33.0); Mean Corpuscular Volume 74.1 fL (80.0-98.0); Monocytes Absolute Auto 0.4 X10*3/uL (0.1-1.2); Neutrophils Absolute Auto 8.9 x10*3/uL (2.0-8.3); Red Cell Distribution Width 27.3 % (11.0-16.0); SCAN SMEAR FLAG 1; White Blood Count 9.8 X10*3/uL (4.8-10.8)
[2024-06-14 05:28] LABS: Platelet Count 65 X10*3/uL (160-400); SLIDE REVIEW VERIFIED
[2024-06-14 05:33] LABS: Alanine Aminotransferase 63 U/L (0-40); Albumin Level 2.3 g/dL (3.5-5.0); Alkaline Phosphatase 57 U/L (39-117); Anion Gap 17 (12-20); Aspartate Amino Transferase 52 U/L (5-37); Bilirubin Total 0.4 mg/dL (0.0-1.0); Blood Urea Nitrogen 15 mg/dL (9-16); Carbon Dioxide 19 mmol/L (22-29); Chloride 103 mmol/L (96-108); Creatinine Clr Calc Pharmacy 82.3; Estimated Glomerular Filt Rate > 60; Glucose Random 90 mg/dL (60-115); Magnesium 1.4 mg/dL (1.6-2.6); Phosphorus 2.3 mg/dL (2.7-4.5); Sodium 134 mmol/L (135-145); Total Protein 4.1 g/dL (6.5-8.0)
[2024-06-14 06:48] LABS: Alanine Aminotransferase 86 U/L (0-40); Alkaline Phosphatase 74 U/L (39-117); Anion Gap 15 (12-20); Aspartate Amino Transferase 63 U/L (5-37); Basophils Percent Auto 0.2 % (0-2); Bilirubin Total 0.6 mg/dL (0.0-1.0); Blood Urea Nitrogen 20 mg/dL (9-16); Calcium 7.8 mg/dL (8.4-10.2); Carbon Dioxide 22 mmol/L (22-29); Chloride 103 mmol/L (96-108); Creatinine Clr Calc Pharmacy 57.5; Estimated Glomerular Filt Rate > 60; Glucose Random 107 mg/dL (60-115); Hematocrit 31.5 % (42.0-52.0); Hemoglobin 9.3 g/dl (14.0-18.0); Imm Gran Abs Auto 0.12 X10*3/uL (0.00-0.03); Imm Gran Pct Auto 0.8 % (0.0-0.4); Lymphocytes Absolute Auto 0.6 X10*3/uL (1.2-4.9); Lymphocytes Percent Auto 4.1 % (20-40); MANUAL DIFF FLAG SCAN; Mean Corpuscular HGB Conc 29.5 g/dl (31.0-36.0); Mean Corpuscular Hemoglobin 21.6 pg (27.0-33.0); Mean Corpuscular Volume 73.3 fL (80.0-98.0); Monocytes Absolute Auto 0.6 X10*3/uL (0.1-1.2); Monocytes Percent Auto 3.9 % (2-11); Neutrophils Absolute Auto 13.5 x10*3/uL (2.0-8.3); PLT ABN DIST 1; PLT CLUMP 1; Potassium 5.1 mmol/L (3.3-5.1); Red Cell Distribution Width 27.1 % (11.0-16.0); SCAN SMEAR FLAG 1; Sodium 135 mmol/L (135-145); Total Protein 5.3 g/dL (6.5-8.0)
[2024-06-14 06:49] LABS: White Blood Count 14.8 X10*3/uL (4.8-10.8)
[2024-06-14 07:18] LABS: Platelet Count 41 X10*3/uL (160-400)
[2024-06-14] MEDS: 0.9 % Sodium Chloride Flush 3 ML SYRINGE IVFLUSH ×3 (07:55→19:49)
[2024-06-14 08:01] LABS: Magnesium 1.9 mg/dL (1.6-2.6); Phosphorus 3.2 mg/dL (2.7-4.5)
[2024-06-14 09:53] LABS: MRSA Nasal PCR NEGATIVE (Negative); SA Nasal PCR POSITIVE (Negative)
--- NOTE | 2024-06-14 10:41 | P.PNCC_ITS ---
Subjective Subjective Date of Service: 06/14/24 Interval History: 88-year-old gentleman with underlying COPD on 3 L of supplemental oxygen, CAD, hypertension, myeloproliferative disorder, subclavian stenosis status post stenting hospitalized on 06/13/2024 with acute hypoxic respiratory failure and hypotension requiring pressor support likely secondary to a pulmonary aspiration. No events overnight. Titrated off pressor support. Critical Care Time (minutes): 30 Physical Exam 2 Vital Signs: Vital Signs: Last Vital Signs Temp 97.2 F 06/14/24 08:00 Pulse 74 06/14/24 10:00 Resp 25 H 06/14/24 10:00 BP 126/88 06/14/24 10:00 Pulse Ox 93 06/14/24 10:00 O2 Del Method Nasal Cannula 06/14/24 10:00 O2 Flow Rate 2 06/14/24 10:00 FiO2 40 06/13/24 07:10 Oxygen Flow Rate 10 06/13/24 07:10 BMI result Body Mass Index 23.7 Const: General: no acute distress, alert and awake Eyes: Sclerae: sclerae normal EOM: EOMs intact bilaterally Neck: Neck: Yes no lymphadenopathy, Yes trachea midline and Yes supple Resp: Effort & Inspection: normal respiratory effort and no respiratory distress Auscultation: clear to auscultation bilaterally Cardio: Rate: regular rate Rhythm: regular rhythm Heart sounds: no gallops, no murmurs and no rubs GI: Palpation (GI): Soft to palpation and Other GI palpation findings present ( Nontender) Auscultation: normal bowel sounds Extrem: General: Yes no pedal edema, No clubbing and No cyanosis Objective Data Labs 06/14/24 06:13 06/14/24 06:13 Labs: Laboratory Results - last 24 hr 06/13/24 06/13/24 06/13/24 08:01 10:21 12:45 WBC RBC Hgb Hct MCV MCH MCHC RDW Plt Count MPV Immature Gran % (Auto) Neut % (Auto) Lymph % (Auto) [place] % (Auto) Eos % (Auto) Baso % (Auto) Lymph # (Auto) [place] # (Auto) Eos # (Auto) Baso # (Auto) Abs Immat Gran (auto) Absolute Neuts (auto) Absolute Nucleated RBC Nucleated RBC % (auto) Smear Tech's Comments VBG pH VBG pCO2 VBG pO2 VBG HCO3 VBG O2 Saturation VBG Base Excess Sodium Potassium Chloride Carbon Dioxide Anion Gap BUN Creatinine Estim Creat Clear Calc Estimated GFR Random Glucose Lactic Acid F/U @ 2Hr 3.1 H* Lactic Acid F/U @ 4Hr 3.6 H* Calcium Phosphorus 3.8 Magnesium Total Bilirubin AST ALT Alkaline Phosphatase Total Protein Albumin Nasal Screen MRSA (PCR) Nasal S. aureus Screen Nasal MRSA/S.aureus Interp 06/13/24 06/14/24 06/14/24 15:14 05:02 06:13 WBC 9.8 14.8 H RBC 3.40 L D 4.30 L D Hgb 7.3 L D 9.3 L D Hct 25.2 L D 31.5 L D MCV 74.1 L 73.3 L MCH 21.5 L 21.6 L MCHC 29.0 L 29.5 L RDW 27.3 H 27.1 H Plt Count 65 L D 41 L D MPV Not Reportable Not Reportable Immature Gran % (Auto) 1.5 H 0.8 H Neut % (Auto) 91.0 H 91.0 H Lymph % (Auto) 3.4 L 4.1 L [place] % (Auto) 4.0 3.9 Eos % (Auto) 0.0 0.0 Baso % (Auto) 0.1 0.2 Lymph # (Auto) 0.3 L 0.6 L [place] # (Auto) 0.4 0.6 Eos # (Auto) 0.0 0.0 Baso # (Auto) 0.0 0.0 Abs Immat Gran (auto) 0.15 H 0.12 H Absolute Neuts (auto) 8.9 H 13.5 H Absolute Nucleated RBC 0.000 0.000 Nucleated RBC % (auto) 0.0 0.0 Smear Tech's Comments VERIFIED VBG pH 7.43 VBG pCO2 38 VBG pO2 37 VBG HCO3 25 VBG O2 Saturation 49.0 VBG Base Excess 1.6 Sodium 134 L 135 Potassium 5.0 5.1 Chloride 103 103 Carbon Dioxide 19 L 22 Anion Gap 17 15 BUN 15 20 H Creatinine 0.58 0.83 Estim Creat Clear Calc 82.3 57.5 Estimated GFR > 60 > 60 Random Glucose 90 107 Lactic Acid F/U @ 2Hr Lactic Acid F/U @ 4Hr Calcium 7.0 L D 7.8 L D Phosphorus 2.3 L 3.2 Magnesium 1.4 L* 1.9 Total Bilirubin 0.4 0.6 AST 52 H 63 H ALT 63 H 86 H Alkaline Phosphatase 57 74 Total Protein 4.1 L 5.3 L Albumin 2.3 L 3.0 L Nasal Screen MRSA (PCR) NEGATIVE Nasal S. aureus Screen POSITIVE A Nasal MRSA/S.aureus Interp SEE NOTE Microbiology Microbiology Results: Microbiology 06/13/24 08:01 Blood - Venous Blood Culture - Preliminary No growth after 24 hours. 06/13/24 07:42 Blood - Venous Blood Culture - Preliminary No growth after 24 hours. Progress Note: A&P Assessment and plan (1) Acute respiratory failure with hypoxia: Status: Acute (2) COPD (chronic obstructive pulmonary disease): Status: Acute (3) Pulmonary aspiration: Status: Acute Plan Assessment: 88-year-old gentleman with underlying trilogy dependent COPD hospitalized with acute hypoxic respiratory failure and hypotension briefly requiring pressor support likely secondary to an episode of pulmonary aspiration. Plan: Neuro: No acute issues. Cardiac: Titrated off pressor support. Underlying CAD , SVT, and hypertension. Restart amiodarone. Pulmonary: Acute on chronic hypoxic respiratory failure, likely secondary to pulmonary aspiration, now titrated down to to baseline supplemental O2 requirement. Underlying COPD 2-3 L dependent. Renal: No acute issues. Endo: No acute issues. GI: No acute issues. ID: Empiric coverage for pulmonary aspiration pneumonia versus pneumonitis. Heme/Onc: No acute issues. Psych: No acute issues. Miscellaneous: No acute issues. Prophylaxis: Lovenox Diet: Regular Critical care time spent: 30 minutes Quality Stroke Does the patient have a stroke diagnosis?: No VTE Prior VTE?: No VTE Risk Level:: Medical - low VTE Device Contraindication: N/A - Device Ordered VTE Drug Contraindication: N/A - Med Ordered
--- NOTE | 2024-06-14 11:01 | MHC.CM.PN ---
IMM DELIVERED. PT DEFERS QUESTIONS TO SON AT THIS TIME. PER SON DAHLIA, PT IS IN FROM STR AT [facility], PLAN [place] BE TO RETURN THERE [place]. BEFORE REHAB, PT WAS LIVING AT HOME WITH SPOUSE, WAS ACTIVE WITH A VNA ( SON DOES NOT KNOW NAME) AND WITH [facility] FOR HOUSE KEEPING AND MOW. PT USES WALKER FOR MOBILITY. + HCP ON FILE AND PCP DR. HANNA. DP: PT WILL RETURN TO STR ON DC AT [facility], WILL NEED A NEW P.T. EVAL. RETURN REFERRAL SENT TO [facility]. PT WILL RETURN VIA BLS. CM WILL CONTINUE TO FOLLOW OF ANY CHANGE TO DC PLAN/NEEDS.
[2024-06-14 12:10] LABS: Adenovirus PCR Not Detected (Not Detect.); Bordetella parapertussis PCR Not Detected (Not Detect.); Bordetella pertussis PCR Not Detected (Not Detect.); Chlamydia pneumoniae PCR Not Detected (Not Detect.); Coronavirus 229E PCR Not Detected (Not Detect.); Coronavirus HKU1 PCR Not Detected (Not Detect.); Coronavirus NL63 PCR Not Detected (Not Detect.); Coronavirus OC43 PCR Not Detected (Not Detect.); Human metapneumovirus PCR Not Detected (Not Detect.); Influenza A PCR Not Detected (Not Detect.); Influenza B PCR Not Detected (Not Detect.); Mycoplasma pneumoniae PCR Not Detected (Not Detect.); Parainfluenza 1 PCR Not Detected (Not Detect.); Parainfluenza 2 PCR Not Detected (Not Detect.); Parainfluenza 3 PCR Not Detected (Not Detect.); Parainfluenza 4 PCR Not Detected (Not Detect.); RSV PCR Not Detected (Not Detect.); Rhino/Enterovirus PCR Not Detected (Not Detect.)
[2024-06-14 12:51] LABS: Influenza A H1 PCR Not Detected (Not Detect.); Influenza A H1-2009 PCR Not Detected (Not Detect.); Influenza A H3 PCR Not Detected (Not Detect.); SARS-CoV-2 PCR Not Detected (Not Detect.)
[2024-06-14] MEDS: Enoxaparin Sodium 40 MG/0.4 ML SYRINGE SUBCUT (13:30)
--- NOTE | 2024-06-14 14:11 | MHC.SL.SWA ---
Addendum entered and electronically signed by Maryuri Burger MS, CCC-TUBER MACHINE CUTTER 06/16/24 15:11: Error in note: Recc NDD1 with thin liquids, intermittent supervision to cue pt to slow pace. Original Note: Speech Pathologist Impression: Mild oropharyngeal dysphagia Risk of Aspiration Due to: Medically Fragile Dysphasia Diet Status: Recc NDD1 with NTL, aspiration precautions, monitor O2 sats during PO intake, supervision and cueing to maintain safety through pacing/bolus-size strategies. Liquid Consistency and Strategies for Safe Swallow: Liquid Intake Recommendation: Thin Liquid Intake Strategies: Small Sips Solid Food Consistency: Dietary Recommendations: Pureed (NDD1) Additional Modifications to Solid Foods: Slow pacing, reduce bolus size Oral Medication Intake: Whole with Puree Please contact the pharmacy regarding appropriate crushable or liquid drug formulations that are available whenever modified delivery is recommended. Compensatory Strategies and Precautions to be Taken for Safe Swallow: Sitting Upright (90 deg) Small Bites and Sips Alternate Liquids/Solids Rate of Ingestion Change Supervision While Eating and Drinking for Safe Swallow: Intermittent Supervision Foods to Avoid: Swallowing Recommended Treatments: Compens. Strategy Educat. Recommendation for Speech: Comment: Pt tolerated sips of thins and tsps of purees without overt s/s of aspiration; however, pt pacing was rapid and bolus sizes were large. TUBER MACHINE CUTTER provided intermittent cueing to encourage pt reduce speed of intake. Pt elicited cough x2 across length of evaluation, considered relative to speed of intake and bolus size vs. airway compromise. Increased WOB observed when pt took consecutive bites/sips. Pt in agreement with suggested slow pacing, reducing bolus size and pausing after a few bites to recuperate, but pt forgot safety techniques. Recc NDD1 with NTL, aspiration precautions, monitor O2 sats during PO intake, supervision and cueing to maintain safety through pacing/bolus-size strategies. Frequency/Duration: Daily M-F Date Range for Service Req: Timeline to reassess: Customer Success Director Clinican/Clinical Fellow: No Supervisory Statement: I have reviewed and agree with the student/clinical fellow's documentation: N/A Speech Language Pathologist: Maryuri Burger M.S., CCC-TUBER MACHINE CUTTER
--- NOTE | 2024-06-14 18:19 | PC.NURSE ---
Assumed care of patient 0700 Pt changed by RT from 2L oxymask to 2L NC, SaO2 91-93%. Pt A+Ox3, can state the year but forgetful of month, see Shift Assessment. IV Zosyn given per orders for treatment of pneumonia. Pt up to recliner chair 10:30am and remains in recliner. Pt states he would like to return to bed between 19:30-20:00. Pt encouraged to sit up as tolerated. Pt evaluated by speech therapy and advanced to regular diet with puree NDD1 and thin liquids. Pt ate 100% of lunch and dinner. Pt pivots to commode 1 assist, rings call singh to make needs known. 1 large formed bowel movement this shift. Silverio (son) updated via phone. Son plans to visit tomorrow morning.
[2024-06-15] VITALS (16 sets, daily range): BP systolic 99–172; BP diastolic 50–94; PULSE 69–81; RESP 16–30; TEMP 36.1–37.1; O2SAT 90–96; BMI 27.3
[2024-06-15] MEDS: Piperacillin Sodium/Tazobactam 4.5 GM in 0.9 % Sodium Chloride 100 ML IV ×4 (01:17→20:39)
--- NOTE | 2024-06-15 03:49 | PC.NURSE ---
CARE ASSUMED 7PM...OOB IN RECLINER..ALERT..ORIENTED X3..O2 2 L/M CANNULA..NO DISTRESS..DENIED SOB..SAO2 92-93%...BP STABLE..REMAINS OFF LEVOPHED..PURWIK EXTERNAL CATHETER COLLECTING YELLOW URINE....NSR 1ST-DEGREE AV-BLOCK.ND 0.28-0.30....BACK TO BED 20:30 WITH STEDY GAIT..DENIED/OFFERED NO COMPLAINTS..BP STABLE OVERNIGHT..DENIES DISCOMFORT OR SOB..NAPPING W/O DIFFICULTY
[2024-06-15] MEDS: Levothyroxine Sodium 75 MCG TABLET PO (05:12)
[2024-06-15 05:53] LABS: VBG Base Excess 8.4 mmol/L; VBG HCO3 31 mmol/L (22-26); VBG pCO2 38 mmHg; VBG pH 7.52 (7.32-7.43); VBG pO2 58 mmHg
[2024-06-15 06:01] LABS: Basophils Percent Auto 0.2 % (0-2); Eosinophils Absolute Auto 0.1 X10*3/uL (0.0-0.4); Eosinophils Percent Auto 0.9 % (0-4); Hematocrit 31.6 % (42.0-52.0); Hemoglobin 9.1 g/dl (14.0-18.0); Imm Gran Abs Auto 0.15 X10*3/uL (0.00-0.03); Imm Gran Pct Auto 1.3 % (0.0-0.4); Lymphocytes Absolute Auto 0.6 X10*3/uL (1.2-4.9); MANUAL DIFF FLAG SCAN; Mean Corpuscular HGB Conc 28.8 g/dl (31.0-36.0); Mean Corpuscular Hemoglobin 21.5 pg (27.0-33.0); Mean Corpuscular Volume 74.5 fL (80.0-98.0); Monocytes Absolute Auto 0.5 X10*3/uL (0.1-1.2); Monocytes Percent Auto 4.2 % (2-11); Neutrophils Percent Auto 88.4 % (45-73); Red Blood Count 4.24 X10*6/uL (4.60-5.80); Red Cell Distribution Width 27.3 % (11.0-16.0); SCAN SMEAR FLAG 1; White Blood Count 11.3 X10*3/uL (4.8-10.8)
[2024-06-15 06:02] LABS: PLT ABN DIST 1; Platelet Count 87 X10*3/uL (160-400)
[2024-06-15 06:19] LABS: SLIDE REVIEW VERIFIED
[2024-06-15 06:29] LABS: Albumin Level 3.1 g/dL (3.5-5.0); Anion Gap 11 (12-20); Blood Urea Nitrogen 19 mg/dL (9-16); Calcium 7.6 mg/dL (8.4-10.2); Carbon Dioxide 27 mmol/L (22-29); Chloride 102 mmol/L (96-108); Creatinine Clr Calc Pharmacy 66.3; Estimated Glomerular Filt Rate > 60; Glucose Random 80 mg/dL (60-115); Phosphorus 2.1 mg/dL (2.7-4.5); Potassium 4.1 mmol/L (3.3-5.1); Sodium 136 mmol/L (135-145)
[2024-06-15] MEDS: Furosemide 20 MG TABLET PO (07:22)
[2024-06-15] MEDS: Amiodarone HCL 200 MG TABLET PO (07:23)
[2024-06-15] MEDS: 0.9 % Sodium Chloride Flush 3 ML SYRINGE IVFLUSH ×2 (07:23→20:54)
--- NOTE | 2024-06-15 08:03 | P.CDIM_ITS ---
PROVIDER RESPONSE TEXT: To clarify, the appropriate diagnosis supported by the clinical indicators: Acute QUERY TEXT: PHYSICIAN'S DOCUMENTATION REQUEST Date of Query: 06/15/2024 07:37 AM EDT Patient Name: Wyatt Shelton Admit Date: 06/13/2024 Dear Braeden Juarez MD, A review of the medical record indicates additional documentation may be needed. Please review below and update the documentation accordingly. Clinical Indicators: ICU H&P 06/13/24 - Lactic acidosis secondary to combination of hypoxia and hypovolemia. We will trend lactate it volume and oxygen replenishment. LA 2.7 H Clarify which of the following accurately represents the acuity of the Lactic acidosis: Possible options might include: Acute Chronic Other (explain) Clinically unable to determine (explain) Thank you, Salma Saldivar, CCS, CDIS Use of terms such as suspected, likely, concern for, or probable (associated with a specific diagnosi s that is being evaluated, monitored, or treated as if it exists) are acceptable and can be coded in the inpatient se tting, when documented at the time of discharge. Please use your independent medical judgment in providing your response. THIS QUERY IS PART OF THE PERMANENT MEDICAL RECORD
[2024-06-15 08:11] LABS: Venous Blood Gas Refer to POC result
--- NOTE | 2024-06-15 09:36 | P.PNCC_ITS ---
Subjective Subjective Date of Service: 06/15/24 Interval History: 88-year-old gentleman with underlying COPD on 3 L of supplemental oxygen, CAD, hypertension, myeloproliferative disorder, subclavian stenosis status post stenting hospitalized on 06/13/2024 with acute hypoxic respiratory failure and hypotension initially requiring pressor support likely secondary to a pulmonary aspiration. No events overnight. Passed swallow evaluation Critical Care Time (minutes): 0 Physical Exam 2 Vital Signs: Vital Signs: Last Vital Signs Temp 97.9 F 06/15/24 08:00 Pulse 78 06/15/24 09:00 Resp 29 H 06/15/24 09:00 BP 134/56 L 06/15/24 09:00 Pulse Ox 90 L 06/15/24 09:00 O2 Del Method Nasal Cannula 06/15/24 09:00 O2 Flow Rate 2 06/15/24 09:00 FiO2 40 06/13/24 07:10 Oxygen Flow Rate 10 06/13/24 07:10 BMI result Body Mass Index 27.3 Const: General: no acute distress, alert and awake Eyes: Sclerae: sclerae normal EOM: EOMs intact bilaterally Neck: Neck: Yes no lymphadenopathy, Yes trachea midline and Yes supple Resp: Effort & Inspection: normal respiratory effort and no respiratory distress Auscultation: clear to auscultation bilaterally Cardio: Rate: regular rate Rhythm: regular rhythm Heart sounds: no gallops, no murmurs and no rubs GI: Palpation (GI): Soft to palpation and Other GI palpation findings present ( Nontender) Auscultation: normal bowel sounds Extrem: General: Yes no pedal edema, No clubbing and No cyanosis Objective Data Labs 06/15/24 05:46 06/15/24 05:46 Labs: Laboratory Results - last 24 hr 06/13/24 06/15/24 06/15/24 15:14 05:46 05:47 WBC 11.3 H RBC 4.24 L Hgb 9.1 L Hct 31.6 L MCV 74.5 L MCH 21.5 L MCHC 28.8 L RDW 27.3 H Plt Count 87 L D MPV Not Reportable Immature Gran % (Auto) 1.3 H Neut % (Auto) 88.4 H Lymph % (Auto) 5.0 L [place] % (Auto) 4.2 Eos % (Auto) 0.9 Baso % (Auto) 0.2 Lymph # (Auto) 0.6 L [place] # (Auto) 0.5 Eos # (Auto) 0.1 Baso # (Auto) 0.0 Abs Immat Gran (auto) 0.15 H Absolute Neuts (auto) 10.0 H Absolute Nucleated RBC 0.000 Nucleated RBC % (auto) 0.0 Smear Tech's Comments VERIFIED VBG pH 7.52 H VBG pCO2 38 VBG pO2 58 VBG HCO3 31 H VBG O2 Saturation 88.0 VBG Base Excess 8.4 Sodium 136 Potassium 4.1 Chloride 102 Carbon Dioxide 27 Anion Gap 11 L BUN 19 H Creatinine 0.72 Estim Creat Clear Calc 66.3 Estimated GFR > 60 Random Glucose 80 Calcium 7.6 L Phosphorus 2.1 L Magnesium 2.0 Albumin 3.1 L Nasal Screen MRSA (PCR) NEGATIVE Nasal S. aureus Screen POSITIVE A Nasal MRSA/S.aureus Interp SEE NOTE Respiratory Panel [place] See Note Adenovirus (Rapid PCR) Not Detected B.pert (TEM-PCR) Not Detected B.parapertussis DNA PCR Not Detected C. pneumoniae DNA (PCR) Not Detected Coronavirus OC43 (PCR) Not Detected Coronavirus HKU1 (PCR) Not Detected Coronavirus 229E (PCR) Not Detected Coronavirus NL63 (PCR) Not Detected Human Metapneumovir PCR Not Detected Influenza A (RT-PCR) Not Detected Influenza A (H1) PCR Not Detected Influ A (H1/09) PCR Not Detected Influenza A (H3) PCR Not Detected Influenza B (RT-PCR) Not Detected M. pneumoniae (PCR) Not Detected Parainfluenza 1 (PCR) Not Detected Parainfluenza 2 (PCR) Not Detected Parainfluenza 3 (PCR) Not Detected Parainfluenza 4 (PCR) Not Detected RSV (PCR) Not Detected Entero/Rhino (PCR) Not Detected SARS-CoV-2 RNA (RT-PCR) Not Detected Microbiology Microbiology Results: Microbiology 06/13/24 08:01 Blood - Venous Blood Culture - Preliminary No growth after 24 hours. 06/13/24 07:42 Blood - Venous Blood Culture - Preliminary No growth after 24 hours. Progress Note: A&P Assessment and plan (1) Supraventricular tachycardia: Status: Acute (2) COPD (chronic obstructive pulmonary disease): Status: Acute (3) Pulmonary aspiration: Status: Acute (4) Acute respiratory failure with hypoxia: Status: Acute Plan Assessment: 88-year-old gentleman with underlying trilogy dependent COPD hospitalized with acute hypoxic respiratory failure and hypotension briefly requiring pressor support likely secondary to an episode of pulmonary aspiration. Plan: Neuro: No acute issues. Cardiac: Titrated off pressor support. Underlying CAD, SVT, and hypertension. Continue amiodarone. Restart furosemide. Pulmonary: Acute on chronic hypoxic respiratory failure, likely secondary to pulmonary aspiration, now titrated down to to baseline supplemental O2 requirement. Underlying COPD 2-3 L dependent. Renal: No acute issues. Endo: No acute issues. GI: No acute issues. ID: Empiric coverage for pulmonary aspiration pneumonia versus pneumonitis. Heme/Onc: No acute issues. Psych: No acute issues. Miscellaneous: No acute issues. Prophylaxis: Lovenox Diet: Pureed Quality Stroke Does the patient have a stroke diagnosis?: No VTE Prior VTE?: No VTE Risk Level:: Medical - low VTE Device Contraindication: N/A - Device Ordered VTE Drug Contraindication: N/A - Med Ordered
--- NOTE | 2024-06-15 10:23 | MHC.SL.SWA ---
Risk of Aspiration Due to: Medically Fragile Dysphasia Diet Status: NO CHANGE Liquid Consistency and Strategies for Safe Swallow: Liquid Intake Recommendation: Thin Liquid Intake Strategies: Small Sips Solid Food Consistency: Dietary Recommendations: Pureed (NDD1) Additional Modifications to Solid Foods: Slow pacing, reduce bolus size Oral Medication Intake: Whole with Puree Please contact the pharmacy regarding appropriate crushable or liquid drug formulations that are available whenever modified delivery is recommended. Compensatory Strategies and Precautions to be Taken for Safe Swallow: Sitting Upright (90 deg) Small Bites and Sips Rate of Ingestion Change Supervision While Eating and Drinking for Safe Swallow: Intermittent Supervision Swallowing Recommended Treatments: Compens. Strategy Educat. Recommendation for Speech: Recommend pt continue with PUREE solids (NDD1) and THIN liquids w/ meds WHOLE in PUREE. Pt benefits from cues to slow pace and take small bites/sips. Sheriff Sergeant Clinican/Clinical Fellow: No Supervisory Statement: I have reviewed and agree with the student/clinical fellow's documentation: N/A Speech Language Pathologist: Jennifer Lawson M.A., CCC-SPECIAL WARFARE COMBATANT CREWMAN
[2024-06-15] MEDS: Enoxaparin Sodium 40 MG/0.4 ML SYRINGE SUBCUT (15:10)
[2024-06-16] VITALS (8 sets, daily range): BP systolic 92–147; BP diastolic 52–80; PULSE 71–77; RESP 18–22; TEMP 36.1–37.1; O2SAT 90–97; BMI 23.8
[2024-06-16] MEDS: Piperacillin Sodium/Tazobactam 4.5 GM in 0.9 % Sodium Chloride 100 ML IV ×4 (02:57→21:11)
[2024-06-16] MEDS: Levothyroxine Sodium 75 MCG TABLET PO (05:43)
[2024-06-16 06:48] LABS: MANUAL DIFF FLAG NO
[2024-06-16 06:52] LABS: Venous Blood Gas Refer to POC result
[2024-06-16 06:53] LABS: VBG Base Excess 9.5 mmol/L; VBG HCO3 34 mmol/L (22-26); VBG pCO2 45 mmHg; VBG pH 7.48 (7.32-7.43); VBG pO2 44 mmHg
[2024-06-16 07:06] LABS: Albumin Level 3.1 g/dL (3.5-5.0); Anion Gap 11 (12-20); Blood Urea Nitrogen 17 mg/dL (9-16); Calcium 7.7 mg/dL (8.4-10.2); Carbon Dioxide 26 mmol/L (22-29); Chloride 102 mmol/L (96-108); Creatinine Clr Calc Pharmacy 61.9; Estimated Glomerular Filt Rate > 60; Glucose Random 74 mg/dL (60-115); Magnesium 1.9 mg/dL (1.6-2.6); Phosphorus 2.5 mg/dL (2.7-4.5); Potassium 4.2 mmol/L (3.3-5.1); Sodium 135 mmol/L (135-145)
[2024-06-16 07:13] LABS: Basophils Percent Auto 0.4 % (0-2); Eosinophils Absolute Auto 0.7 X10*3/uL (0.0-0.4); Eosinophils Percent Auto 8.9 % (0-4); Hematocrit 35.5 % (42.0-52.0); Hemoglobin 10.3 g/dl (14.0-18.0); Imm Gran Abs Auto 0.11 X10*3/uL (0.00-0.03); Imm Gran Pct Auto 1.4 % (0.0-0.4); Lymphocytes Absolute Auto 0.8 X10*3/uL (1.2-4.9); Lymphocytes Percent Auto 9.7 % (20-40); Mean Corpuscular Hemoglobin 21.6 pg (27.0-33.0); Mean Corpuscular Volume 74.4 fL (80.0-98.0); Monocytes Absolute Auto 0.4 X10*3/uL (0.1-1.2); Monocytes Percent Auto 4.8 % (2-11); Neutrophils Absolute Auto 5.9 x10*3/uL (2.0-8.3); Neutrophils Percent Auto 74.8 % (45-73); Red Blood Count 4.77 X10*6/uL (4.60-5.80); Red Cell Distribution Width 27.2 % (11.0-16.0); White Blood Count 7.9 X10*3/uL (4.8-10.8)
[2024-06-16 07:17] LABS: Platelet Count 98 X10*3/uL (160-400)
[2024-06-16] MEDS: Fluticasone/Umeclidinium/Vilanterol 200/62.5/25 BLST.W.DEV 1 PUFF INHALE (07:58)
[2024-06-16] MEDS: Amiodarone HCL 200 MG TABLET PO (09:20)
[2024-06-16] MEDS: 0.9 % Sodium Chloride Flush 3 ML SYRINGE IVFLUSH ×2 (09:20→21:12)
[2024-06-16] MEDS: Furosemide 20 MG TABLET PO (09:20)
--- NOTE | 2024-06-16 13:47 | P.PNIM_ITS ---
Subjective Subjective Date of Service: 06/16/24 Interval History: improving Physical Exam 2 Vital Signs: Vital Signs: Last Vital Signs Temp 97.3 F 06/16/24 12:00 Pulse 71 06/16/24 12:00 Resp 18 06/16/24 12:00 BP 112/52 L 06/16/24 12:00 Pulse Ox 93 06/16/24 12:00 O2 Del Method Room Air 06/16/24 12:00 O2 Flow Rate 1 06/16/24 07:51 FiO2 40 06/13/24 07:10 Oxygen Flow Rate 10 06/13/24 07:10 BMI result Body Mass Index 23.8 General: AO X 3, no acute distress Resp: CTA bilateral, no accessory muscles used CVS: S1,S2,RRR GI: soft, non tender, non distended Neuro: motor grossly intact, alert Psych: appropriate affect, appropriate insight Objective Data Active Medications Albuterol Sulfate (Albuterol Sulfate (0.083%) 2.5 Mg/3 Ml Vial.Neb) 2.5 mg INHALE Q8H PRN PRN Reason: Shortness Of Breath Or Wheezing Amiodarone HCl (Amiodarone Hcl 200 Mg Tablet) 200 mg PO DAILY [facility] Last Admin: 06/16/24 09:20 Dose: 200 mg Documented By: JASWINDER Enoxaparin Sodium (Enoxaparin Sodium 40 Mg/0.4 Ml Syringe) 40 mg SUBCUT Q24H [facility] Last Admin: 06/15/24 15:10 Dose: 40 mg Documented By: ANNAOTPAInna Fluticasone/Umeclidinium/Vilanterol (Fluticasone/Umeclidinium/Vilanterol 200/62.5/25 Blst.W.Dev) 1 puff INHALE RDAILY [facility] Last Admin: 06/16/24 07:58 Dose: 1 puff Documented By: TONIA Furosemide (Furosemide 20 Mg Tablet) 20 mg PO DAILY [facility]; Protocol Last Admin: 06/16/24 09:20 Dose: 20 mg Documented By: JASWINDER Piperacillin Sod/Tazobactam (Sod 4.5 gm/ Sodium Chloride) 100 mls @ 200 mls/hr IV Q6H [facility] Last Infusion: 06/16/24 09:57 Dose: Infused Documented By: JASWINDER Levothyroxine Sodium (Levothyroxine Sodium 75 Mcg Tablet) 75 mcg PO DAILY@0600 [facility] Last Admin: 06/16/24 05:43 Dose: 75 mcg Documented By: DELON Sodium Chloride (0.9 % Sodium Chloride Flush 3 Ml Syringe) 3 ml IVFLUSH QSHIFT [facility] Last Admin: 06/16/24 09:20 Dose: 3 ml Documented By: JASWINDER Labs 06/16/24 06:36 06/16/24 06:36 Labs: Laboratory Results - last 24 hr 06/16/24 06/16/24 06:36 06:49 MCV 74.4 L MCH 21.6 L MCHC 29.0 L RDW 27.2 H Plt Count 98 L MPV Not Reportable Immature Gran % (Auto) 1.4 H Neut % (Auto) 74.8 H Lymph % (Auto) 9.7 L [place] % (Auto) 4.8 Eos % (Auto) 8.9 H Baso % (Auto) 0.4 Lymph # (Auto) 0.8 L [place] # (Auto) 0.4 Eos # (Auto) 0.7 H Baso # (Auto) 0.0 Abs Immat Gran (auto) 0.11 H Absolute Neuts (auto) 5.9 Absolute Nucleated RBC 0.000 Nucleated RBC % (auto) 0.0 VBG pH 7.48 H VBG pCO2 45 VBG pO2 44 VBG HCO3 34 H VBG O2 Saturation 80.0 VBG Base Excess 9.5 Anion Gap 11 L Estim Creat Clear Calc 61.9 Estimated GFR > 60 Random Glucose 74 Calcium 7.7 L Phosphorus 2.5 L Magnesium 1.9 Albumin 3.1 L Microbiology Microbiology Results: Microbiology 06/13/24 08:01 Blood Culture - Preliminary Blood - Venous No growth after 48 hours. Assessment and Plan (1) Pneumonia: Status: Acute Plan 88M PMH chronic hypoxic respiratory failure on 3 L home O2 for COPD, coronary artery disease, hypertension, JAK2 positive myeloproliferative disorder, subclavian stenosis status post stent presented after being found cyanotic on 06/13/24, was initially put on CPAP and pressors and admitted to the ICU. Now off pressors and minimal oxygen and downgraded to medical floor Acute on chronic hypoxic respiratory failure and septic shock due to aspiration pneumonia now on room air, off pressors continue zosyn heating systems installer appreciated - pureed with thins COPD Inhalers as needed pvera outpatient follow up cad/pvd statin pafib amio, no longer on AC for bleeding risk dvt prophylaxis - lovenox dnr/dni reason for continued hospitalization:monitoring off pressors and o2 Quality Stroke Does the patient have a stroke diagnosis?: No VTE Prior VTE?: No VTE Risk Level:: Medical - low VTE Device Contraindication: N/A - Device Ordered VTE Drug Contraindication: N/A - Med Ordered
[2024-06-16] MEDS: Enoxaparin Sodium 40 MG/0.4 ML SYRINGE SUBCUT (15:11)
--- NOTE | 2024-06-16 15:13 | MHC.SL.SWA ---
Speech Pathologist Impression: Mild oral dysphagia as pt edentulous, pharyngeal swallow WFL, cue pt to slow pace if eating too quickly Risk of Aspiration Due to: Medically Fragile Dysphasia Diet Status: Recommend pt continue with PUREE solids (NDD1) and THIN liquids w/ meds WHOLE in PUREE. Pt benefits from cues to slow pace and take small bites/sips. Liquid Consistency and Strategies for Safe Swallow: Liquid Intake Recommendation: Thin Liquid Intake Strategies: Small Sips Solid Food Consistency: Dietary Recommendations: Pureed (NDD1) Additional Modifications to Solid Foods: Slow pacing, reduce bolus size Oral Medication Intake: Whole with Puree Please contact the pharmacy regarding appropriate crushable or liquid drug formulations that are available whenever modified delivery is recommended. Compensatory Strategies and Precautions to be Taken for Safe Swallow: Sitting Upright (90 deg) Small Bites and Sips Rate of Ingestion Change Supervision While Eating and Drinking for Safe Swallow: Intermittent Supervision Foods to Avoid: Swallowing Recommended Treatments: Compens. Strategy Educat. Recommendation for Speech: Comment: Frequency/Duration: Daily M-F Date Range for Service Req: Timeline to reassess: Ballroom Dance Instructor Clinican/Clinical Fellow: No Supervisory Statement: I have reviewed and agree with the student/clinical fellow's documentation: N/A Speech Language Pathologist: Maryuri Burger M.S., CCC-SENIOR REGULATORY AFFAIRS SPECIALIST
--- NOTE | 2024-06-16 15:41 | MHC.CM.PN ---
Per rounds, pt. is not ready to DC, he is will be weaned off supplemental O2, DCP: return to STR at [facility].
[2024-06-16] MEDS: Atorvastatin Calcium 20 MG TABLET PO (21:12)
[2024-06-17] MEDS: Piperacillin Sodium/Tazobactam 4.5 GM in 0.9 % Sodium Chloride 100 ML IV ×2 (01:41→08:33)
[2024-06-17 03:30] VITALS: BP 104/55; PULSE 66; RESP 18; TEMP 36.9; O2SAT 93
[2024-06-17] MEDS: Levothyroxine Sodium 75 MCG TABLET PO (05:33)
[2024-06-17 06:40] LABS: Hematocrit 31.8 % (42.0-52.0); Hemoglobin 9.1 g/dl (14.0-18.0); Mean Corpuscular HGB Conc 28.6 g/dl (31.0-36.0); Mean Corpuscular Hemoglobin 21.4 pg (27.0-33.0); Mean Corpuscular Volume 74.8 fL (80.0-98.0); Platelet Count 96 X10*3/uL (160-400); Red Blood Count 4.25 X10*6/uL (4.60-5.80); Red Cell Distribution Width 26.7 % (11.0-16.0); White Blood Count 7.5 X10*3/uL (4.8-10.8)
[2024-06-17 06:49] LABS: Anion Gap 11 (12-20); Blood Urea Nitrogen 16 mg/dL (9-16); Calcium 7.6 mg/dL (8.4-10.2); Carbon Dioxide 27 mmol/L (22-29); Chloride 101 mmol/L (96-108); Creatinine Clr Calc Pharmacy 64.5; Estimated Glomerular Filt Rate > 60; Glucose Random 78 mg/dL (60-115); Potassium 4.2 mmol/L (3.3-5.1); Sodium 135 mmol/L (135-145)
[2024-06-17 07:35] VITALS: BP 119/65; PULSE 75; RESP 20; TEMP 36.3; O2SAT 95
[2024-06-17 08:00] VITALS: BMI 23.8
[2024-06-17] MEDS: Fluticasone/Umeclidinium/Vilanterol 200/62.5/25 BLST.W.DEV 1 PUFF INHALE (08:06)
[2024-06-17 08:08] VITALS: PULSE 71; RESP 20; O2SAT 91
[2024-06-17 08:24] VITALS: PULSE 71
[2024-06-17] MEDS: Amiodarone HCL 200 MG TABLET PO (08:33)
[2024-06-17] MEDS: Furosemide 20 MG TABLET PO (08:33)
[2024-06-17] MEDS: 0.9 % Sodium Chloride Flush 3 ML SYRINGE IVFLUSH (08:33)
--- NOTE | 2024-06-17 10:44 | PM.DS ---
DS: Providers Provider Date of Service: 06/17/24 Date of admission: 06/13/24 14:02 Date of discharge: 06/17/24 Primary care physician: SANJIV BOUCHER DS: Diagnosis Discharge Diagnosis (1) Pneumonia: Status: Acute DS: Summary Hospital Course Hospital Course: from initial hpi: 88-year-old gentleman with past medical history of COPD on home 3L O2, CAD, hypertension JAK2-positive myeloproliferative disorder chronic leukocytosis, subclavian stenosis s/p stenting with recurrent hospitalization for pneumonia in the past month was brought in from a rehab after he was found cyanosed. Patient was at his baseline yesterday, no complaints; this morning he was found cyanosed in his room so EMS was called,initially was placed on a CPAP support but as the oxygenation improved he is back to his baseline oxygen requirement. His blood pressures were low received sepsis bolus fluids, started on Levophed so MICU was consulted. hospital course: Patient was admitted for acute on chronic hypoxic respiratory failure and septic shock due to aspiration pneumonia. He was admitted to the intensive care unit and treated with IV Zosyn and vasopressors. He was eventually weaned off pressors and placed on room air and downgraded to medical floor. Was seen by speech therapy recommended pureed solids and thin liquids and aspiration precautions. He will be discharged on 5 more days of Augmentin and be discharged to detention facility. For COPD remained stable. 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 For coronary artery disease/peripheral vascular disease was continued on statin. For paroxysmal AFib was continued on amiodarone, he is no longer on anticoagulation due to bleeding risk. Time Attestation Discharge Coordination Time (in mins): 34 Quality: Safe Use of Opioids Does Pt have an Active Cancer Diagnosis on the Problem List?: No Quality: Stroke Does the patient have a stroke diagnosis?: No Physical Exam Vital Signs: Vital Signs: Last Vital Signs Temp 97.3 F 06/17/24 07:35 Pulse 71 06/17/24 08:24 Resp 20 06/17/24 08:08 BP 119/65 06/17/24 07:35 Pulse Ox 95 06/17/24 07:35 O2 Del Method Nasal Cannula 06/17/24 07:35 O2 Flow Rate 1 06/17/24 07:35 FiO2 40 06/13/24 07:10 Oxygen Flow Rate 10 06/13/24 07:10 BMI result Body Mass Index 23.8 General: AO X 3, no acute distress Resp: CTA bilateral, no accessory muscles used CVS: S1,S2,RRR GI: soft, non tender, non distended Neuro: motor grossly intact, alert Psych: appropriate affect, appropriate insight DS: Data Data Completed and Pending Completed studies during hospitalization [Text1]: Procedures Insertion of Infusion Device into Superior Vena Cava, Percutaneous Approach (04/28/24) Insertion of Infusion Device into Upper Vein, Percutaneous Approach (04/28/24) Introduction of Vasopressor into Peripheral Vein, Percutaneous Approach (04/28/24) Religious of Cardiac Rhythm, Single (02/13/24) Transfusion of Nonautologous Frozen Plasma into Peripheral Vein, Percutaneous Approach (04/28/24) Transfusion of Nonautologous Red Blood Cells into Peripheral Vein, Percutaneous Approach (04/28/24) Ultrasonography of Superior Vena Cava, Guidance (04/28/24) Labs on day of discharge: Laboratory Results - last 24 hr 06/17/24 06:25 WBC 7.5 RBC 4.25 L Hgb 9.1 L Hct 31.8 L MCV 74.8 L MCH 21.4 L MCHC 28.6 L RDW 26.7 H Plt Count 96 L MPV Not Reportable Absolute Nucleated RBC 0.000 Nucleated RBC % (auto) 0.0 Sodium 135 Potassium 4.2 Chloride 101 Carbon Dioxide 27 Anion Gap 11 L BUN 16 Creatinine 0.74 Estim Creat Clear Calc 64.5 Estimated GFR > 60 Random Glucose 78 Calcium 7.6 L Preliminary micro results at discharge 06/13/24 08:01 Blood Culture - Preliminary Blood - Venous No growth after 48 hours. 06/13/24 07:42 Blood Culture - Preliminary Blood - Venous No growth after 48 hours. Discharge Plan Discharge Anticipated Discharge Date/Time: 06/17/24 10:42 Patient Disposition: Xfer SNF Discharge Diagnosis: aspiration Referrals: Stephanie Orr MD [Physician] - SANJIV BOUCHER [Primary Care Provider] - Discharge Medications: New amoxicillin-pot clavulanate 875-125 mg tablet 1 tab PO BID Qty: 10 0RF Continued cyanocobalamin (vitamin B-12) 1,000 mcg tablet 1,000 mcg PO DAILY albuterol sulfate 90 mcg/actuation HFA aerosol inhaler 1 puff INHALATION Q6H PRN (Reason: asthma) ipratropium-albuterol 0.5 mg-3 mg(2.5 mg base)/3 mL Solution For Nebulization 3 ml INHALATION Q4H PRN (Reason: Wheezing) levothyroxine 75 mcg Tablet 75 mcg PO DAILY@0600 Qty: 30 0RF albuterol sulfate 2.5 mg /3 mL (0.083 %) solution for nebulization 2.5 mg inhalation Q8H PRN (Reason: Shortness Of Breath Or Wheezing) furosemide 20 mg tablet 20 mg PO DAILY Trelegy Ellipta 200-62.5-25 mcg blister with device 1 inh INHALATION DAILY [id number] Tablet 1 tab PO DAILY acetaminophen 325 mg Tablet 650 mg PO Q6H PRN (Reason: pain or fever) magnesium hydroxide [Milk of Magnesia] 400 mg/5 mL Suspension 30 ml PO Q24H PRN (Reason: Constipation) bisacodyl 10 mg Suppository 10 mg SC BEDTIME PRN (Reason: Constipation) Fleet Enema 19-7 gram/118 mL Enema 118 ml SC DAILY PRN (Reason: Constipation) amiodarone 200 mg tablet 200 mg PO DAILY atorvastatin 20 mg tablet 20 mg PO BEDTIME Discharge Orders: Discharge Order (Routine); Ordered 06/17/24 Ordered By: Fan Johnston Diet: pureed with thins Activity on Discharge: As tolerated Stand Alone Forms: Patient Portal Discharge page Print Language: Unable To Collect Care Plan Goals: recovery Health Concerns: aspiration Plan of Treatment: 5 days agumentin pureed solids, thin liquids, aspiratoin precautions Assessment: see above
--- NOTE | 2024-06-17 11:14 | MHC.CM.PN ---
Second IMM 06/17/24, Pt has been medically cleared for DC, he will go back to [facility] to complete STR via BLS this afternoon.
[2024-06-17 11:22] VITALS: BP 141/60; PULSE 70; RESP 20; TEMP 36.6; O2SAT 96
== END 2024-06-17 13:18 | disposition skilled nursing facility (03) | DRG 871 ==
LOC: HO.ED 11:54 → HO.EDOVER 14:03 → HO.ICU 14:19 → HO.IMC 06-15 09:28
PROVIDERS: Internal Medicine Pulmonary Disease; Physician Assistant Medical; Student in an Organized Health Care Education/Training Program; Admitting Provider Internal Medicine Critical Care Medicine; Emergency Provider Emergency Medicine Emergency Medical Services; PCP Emergency Medicine; Visit Provider Internal Medicine
DX: A41.9 Sepsis, unspecified organism (principal); J69.0 Pneumonitis due to inhalation of food and vomit; R65.21 Severe sepsis with septic shock; J96.21 Acute and chronic respiratory failure with hypoxia; D47.1 Chronic myeloproliferative disease; I47.10 Supraventricular tachycardia, unspecified; I10 Essential (primary) hypertension; Z66 Do not resuscitate; I73.9 Peripheral vascular disease, unspecified; E86.1 Hypovolemia; D64.9 Anemia, unspecified; I48.0 Paroxysmal atrial fibrillation; D45 Polycythemia vera; J44.9 Chronic obstructive pulmonary disease, unspecified; Z99.81 Dependence on supplemental oxygen; I25.10 Atherosclerotic heart disease of native coronary artery without angina pectoris; Z20.822 Contact with and (suspected) exposure to COVID-19; Z79.899 Other long term (current) drug therapy
CPT/HCPCS: 0241U; 36415; 71045; 80048; 80053; 80076; 81001; 82040; 82803; 83605; 83735; 83880; 84100; 84484; 85025; 85027; 87040; 87633; 87640; 87641; 92526; 92610; 93005; 94640; 97116; 97162; 99285; J0131; J0456; J0692; J0696; J1650; J2543; J2919; J3370; J7120; P9047

== ENCOUNTER → 2024-06-13 07:15 | Outpatient (BNV) | payer MEDICARE, SELFPAY | PROVIDERS: Emergency Provider Emergency Medicine Emergency Medical Services; PCP Internal Medicine; Visit Provider Internal Medicine Cardiovascular Disease | DX: I44.0 Atrioventricular block, first degree (principal); I44.4 Left anterior fascicular block; I25.2 Old myocardial infarction | CPT/HCPCS: 93010 ==

== ENCOUNTER → 2024-06-13 07:15 | Outpatient (BNV) | payer MEDICARE, SELFPAY | PROVIDERS: Emergency Provider Emergency Medicine Emergency Medical Services; PCP Emergency Medicine; Visit Provider Radiology Diagnostic Radiology | DX: R06.00 Dyspnea, unspecified (principal) | CPT/HCPCS: 71045 ==

== ENCOUNTER → 2024-06-13 07:56 | Outpatient (BNV) | payer MEDICARE, SELFPAY | PROVIDERS: Emergency Provider Emergency Medicine Emergency Medical Services; PCP Internal Medicine; Visit Provider Internal Medicine Critical Care Medicine | DX: I21.4 Non-ST elevation (NSTEMI) myocardial infarction (principal); I95.9 Hypotension, unspecified; I65.23 Occlusion and stenosis of bilateral carotid arteries; I77.1 Stricture of artery; L03.116 Cellulitis of left lower limb; A41.9 Sepsis, unspecified organism | CPT/HCPCS: 99223 ==

== ENCOUNTER → 2024-06-13 14:02 | Outpatient (BNV) | payer MEDICARE, SELFPAY | PROVIDERS: Admitting Provider Internal Medicine Critical Care Medicine; Emergency Provider Emergency Medicine Emergency Medical Services; PCP Emergency Medicine; Visit Provider Internal Medicine | DX: J18.9 Pneumonia, unspecified organism (principal) | CPT/HCPCS: 99233 ==

== ENCOUNTER → 2024-06-13 14:02 | Outpatient (BNV) | payer MEDICARE, SELFPAY | PROVIDERS: Admitting Provider Internal Medicine Critical Care Medicine; Emergency Provider Emergency Medicine Emergency Medical Services; PCP Emergency Medicine; Visit Provider Internal Medicine Pulmonary Disease | DX: I47.10 Supraventricular tachycardia, unspecified (principal); J44.9 Chronic obstructive pulmonary disease, unspecified; T17.900A Unspecified foreign body in respiratory tract, part unspecified causing asphyxiation, initial encounter; J96.01 Acute respiratory failure with hypoxia | CPT/HCPCS: 99232; 99291 ==

== ENCOUNTER 2024-09-01 11:22 | Emergency (ER) | payer MEDICARE, OTHER, SELFPAY ==
--- OUTSIDE RECORDS SUMMARY | 2024-04-28 05:22 | XMS_ITS ---
Author Organization Aris Garzon III, MD Address [address] [place] [address] [place] [address] Care Team Providers Care Core Measures Abstractor Name Role Phone Dominga LÓPEZ, [facility] Primary Care Provider Aris Jeffries [phone] REASON FOR VISIT Admitted to Rehab Encounters Encounter Location Date Provider Diagnosis Aris Garzon III, MD [address] [place] [address] [place] [address] 04/28/2024 Aris Garzon Plan Of Treatment Next Appt Details Provider Name:Aris Garzon, 09/07/2024 10:00:00 AM, [address] [place] [address] [place], [address], Progress Notes * HORACE GarryAlfredoOB:1935 (88 yo M)Acc No.[id number]:04/28/2024 Patient: Wyatt BAUER :1935 A ge:88 Y S ex:Male Address:[address] [place] [address], [id number] * true * Date: Generated for Printi ng/Faxing/eTransmitting on: 0 09/01/2024 12:55 PM EDT
--- NOTE | ~2024-09-01 | CT_ITS ---
EXAMINATION: CT HEAD WITHOUT CONTRAST CLINICAL INFORMATION: fall , + AC COMPARISON: April 24, 2024. TECHNIQUE: Contiguous axial imaging was performed from the skull base to vertex without intravenous administration of contrast. This CT examination was performed using dose optimization techniques as appropriate, variously including the following: *Automated exposure control *Adjustment of mA and/or kV according to patient size (this includes techniques or standardized protocols for targeted exams where dose is matched to indication/reason for exam; i.e. extremities or head) *Use of iterative reconstruction technique DLP: 762.72 mGy-cm FINDINGS: Soft tissue contusion, superior medial left frontal/forehead. No acute cortical disruption, bony calvarium. No acute intracranial hemorrhage, mass effect, midline shift, hydrocephalus or herniation. Prominence of the extra-axial CSF spaces cerebral sulci and ventricles likely central volume loss. Bilateral multifocal patchy and confluent deep periventricular white matter hypodensities involving centrum semiovale and crenshaw radiata. Calcified plaques in the cavernous supraclinoid segments both ICAs and V4 segment right vertebral artery. Craniocervical junction demonstrates normal position of the cerebellar tonsils. Sellar/suprasellar region demonstrated no gross masses. Poor pneumatization frontal sinuses. Retention cysts versus polyps, maxillary sinuses. Tympanic cavities and mastoid cells are aerated. Edentulous, maxilla. CT/CT Head for ICH IMPRESSION: No acute fracture, bony calvarium. No acute intracranial hemorrhage. Small vessel occlusive disease. Global cerebral atrophy. Electronically signed by: Kj Rivera MD 09/01/2024 12:51 PM EDT
--- NOTE | ~2024-09-01 | XR_ITS ---
EXAMINATION: XR KNEE 4 VIEWS BILATERAL HISTORY: fall onto knees COMPARISON: Comparison is made with the prior examination of the left knee dated 03/29/2024 and the prior examination of the right knee dated 10/21/2018. FINDINGS: Eight views of the bilateral knees are submitted. The bones are osteopenic. There is no fracture or dislocation. There is mild to moderate narrowing of the medial compartments of both knees. There are vascular calcifications. There is no joint effusion. XR/XR Knee Nabor 4V IMPRESSION: Osteopenia. Mild to moderate narrowing of the medial compartments of both knees. Electronically signed by: Aris Gonzalez MD 09/01/2024 02:50 PM EDT
--- NOTE | ~2024-09-01 | XR_ITS ---
EXAMINATION: XR CHEST 1 VIEW HISTORY: fall, coughing , COPD COMPARISON: Comparison is made with the prior examination dated 06/13/2024. FINDINGS: A single AP portable view of the chest performed at 2:31 PM is submitted. There are increased interstitial markings bilaterally with scarring in the left upper lobe. The previously seen right basilar consolidation has resolved. There is no pleural effusion, pneumothorax, or pulmonary vascular congestion. The heart is normal in size given technique. The aorta is calcified and tortuous. There is degenerative disc disease of the spine. There are surgical clips in the GE junction. XR/XR chest 1V IMPRESSION: No acute cardiopulmonary abnormality. Electronically signed by: Aris Gonzalez MD 09/01/2024 02:45 PM EDT
--- NOTE | ~2024-09-01 | CT_ITS ---
EXAMINATION: CT CERVICAL SPINE WITHOUT CONTRAST CLINICAL INFORMATION: Status post fall. COMPARISON: March 14, 2019. TECHNIQUE: Contiguous axial images through the cervical spine using 3 mm collimation with bone and soft tissue algorithm. Sagittal and coronal reformatted images acquired. DLP: 316.[address] examination was performed using dose optimization techniques as appropriate, variously including the following: *Automated exposure control *Adjustment of mA and/or kV according to patient size (this includes techniques or standardized protocols for targeted exams where dose is matched to indication/reason for exam; i.e. extremities or head) *Use of iterative reconstruction technique FINDINGS: Limited by patient's motion artifact. Craniocervical junction is intact with normal alignment between the occipital condyles and lateral masses of C1. C1 is intact. C2 is intact. C3 is intact. C4 is intact. C5 is intact. The 6 is intact. C7 is intact. Grade 1 retrolisthesis C3-4, C4-5 and C5-6 levels likely degenerative. No prevertebral compartment hematoma. Calcified plaques in the carotic arteries and it main branches of the aorta. There is a calcified plaque in the origin of the left subclavian artery without gross lumen. Tympanic cavities and mastoid cells are aerated. Bilateral apical lung scarring. CT/CT cervical spine wo IV con IMPRESSION: Multilevel cervical spondylosis without acute fracture or trauma-related listhesis. Fleischner guidelines were followed. Electronically signed by: Kj Rivera MD 09/01/2024 12:57 PM EDT
[2024-09-01 11:29] VITALS: BP 148/68; PULSE 44; O2SAT 98
[2024-09-01 11:30] VITALS: BP 88/56; PULSE 51; RESP 16; O2SAT 100; BMI 28.6
[2024-09-01 11:54] VITALS: BP 106/51; TEMP 36.7
--- NOTE | 2024-09-01 12:07 | ED_ITS ---
HPI - Fall General Chief Complaint: Fall Stated Complaint: FALL T-3+HS,?LOC,+THIN,RT ARM/FORHEAD CONTUSIONS Time Seen by Provider: 09/01/24 11:32 History of Present Illness ED Provider: baldemar HPI Narrative: 89 M walking in the home with walker, fell face down - describes a non syncpal fall face down from standing height. No headache/vomiting. Only complainrs L forewhead wound and skin tear R arm Related Data Home Medications ?Medication ?Instructions ?Recorded ?Confirmed atorvastatin 20 mg tablet 20 mg PO BEDTIME 02/22/20 fluticasone fur. 200 mcg-umeclid 1 inh inhalation JAYSON Y 02/13/24 06/13/24 62.5 mcg-vilant 25 mcg inhalat.powder (Trelegy Ellipta) yhrpjpzmzjit-taqiwrll-nwswoo tablet 1 tab PO DAILY 06/13/24 albuterol sulfate 90 mcg/actuation 1 puff inhalation Q 6H PRN asthma 04/24/24 06/13/24 aerosol inhaler cyanocobalamin (vitamin B-12) 1,000 mcg PO DAILY 04/2406/13/24 1,000 mcg tablet acetaminophen 325 mg tablet 650 mg PO Q6H PRN pain or fever 04/28/24 06/13/24 amiodarone 200 mg tablet 200 mg PO DAILY 04/28/24 bisacodyl 10 mg rectal suppository 10 mg VT BEDTIME VT N Constipation 04/28/24 06/13/24 magnesium hydroxide 400 mg/5 mL 30 ml PO Q24H PRN Cons tipation 04/28/24 06/13/24 oral suspension (Milk of Magnesia) sodium phosphates 19 gram-7 118 ml VT DAILY PRN Consti pation 04/28/24 06/13/24 gram/118 mL enema (Fleet Enema) ipratropium 0.5 mg-albuterol 3 mg 3 ml inhalation Q4H PRN Wheezing 05/24/24 06/13/24 (2.5 mg base)/3 mL nebulization soln albuterol sulfate 2.5 mg/3 mL 2.5 mg inhalation Q8H VT N 06/13/24 06/13/24 (0.083 %) solution for nebulization Shortness Of Breat h Or Wheezing furosemide 20 mg tablet 20 mg PO DAILY edema/weight gain 06/13/24 06/13/24 Previous Rx's ?Medication ?Instructions ?Recorded levothyroxine 75 mcg tablet 75 mcg PO DAILY@0600 #30 t abs 05/28/24 amoxicillin 875 mg-potassium 1 tab PO BID #10 tabs clavulanate 125 mg tablet Allergies Allergy/AdvReac Type Severity Reaction Status Date / Time No Known Allergies (No Known Allergy Verified 09/01/24 11:38 Allergies*) [facility] Past Medical History Medical History (Updated 09/02/24 @ 00:01 by Josey Escalante) COPD (chronic obstructive pulmonary disease) Polycythemia vera Leukocytosis Polycythemia Fracture High cholesterol HTN (hypertension) Heart attack Surgical History S/P angiogram of extremity Hx of rotator cuff surgery H/O arthroscopy of shoulder Family History Family History Daughter Aortic aneurysm Social History Social History Household Members: Family Housing: House Do you presently have visiting nurse or other home services: Yes (comes from rehab) Patient Tobacco Use Status: Never used Tobacco Tobacco use type: Cigarette Cigarette Packs Per Day: 1 Second Hand Smoke Exposure: No service: No Physical Exam 2 Vital Signs: Vital Signs: Last Vital Signs Temp 97.4 F 09/01/24 16:17 Pulse 52 09/01/24 16:17 Resp 22 H 09/01/24 16:17 BP 127/58 L 09/01/24 16:17 Pulse Ox 96 09/01/24 16:17 O2 Del Method Room Air 09/01/24 16:17 O2 Flow Rate 3 09/01/24 12:49 BMI result Body Mass Index 28.6 Primary Survey: GCS: 15 Airway: Intact airway Breathing: Spontaneous respirations with bilateral breath sounds Circulation: Palpable bilateral carotid, brachial, femoral DP pulses with good skin color and distal perfusion. Disability: No gross paresis of the extremities or obvious focal neuro deficit. E FAST Ultrasound: NA Secondary Survey GENERAL: Well appearing. No apparent distress. Alert. HEAD: The head is atraumatic, without swelling or ecchymosis of the face or behind the ears, including the periorbital area. There is no tenderness to face, and the oral and nasal mucosa are nonbloody. Dentition is intact. The TMs are without hemotympanum. NECK: Cervical collar in place. There is no midline cervical neck tenderness or stepoffs. The patient denies any numbness, tingling, or weakness of the extremities. ?After CT/clinical clearance; Later examination after collar removal: The patient is able to range their neck completely without midline cervical pain, numbness, tingling, or weakness. EYES: Subtle ecchymosis left lower lid. No proptosis no hyphema Normal to inspection. Sclera non-icteric. EOMI, Pupils grossly symmetric/reactive. ENMT: Superficial very abrasion/laceration non repairable left forehead External nose normal. No facial depression, gross hemotympanum, epistaxis. RESPIRATORY: Respiratory effort normal. Lungs clear to auscultation bilaterally. CARDIOVASCULAR: Regular rate. Normal rhythm. No murmur. No rubs. GI: Soft, non-tender, non-distended. No rebound or guarding. No masses palpable. No hepatosplenomegaly. No bruising. MSK: Chest Wall: Atraumatic, nontender, no crepitus, seat belt sign or ecchymosis. Back: No ecchymosis, no abrasions or other external signs of trauma, no midline spinal tenderness. Upper Extremities: Atraumatic, no swelling, deformity, focal tenderness, +FROM of all joints. Lower Extremities: Mild tenderness bilateral anterior knees with full range of motion otherwise: Atraumatic, no swelling, deformity, focal tenderness, +FROM of all joints. SKIN: Skin tear about 4 x 4 cm subtle oozing no underlying bony deformity or tenderness No jaundice. No abrasions, lacerations, or ecchymosis. NEUROLOGICAL: Alert. Comprehensive Neuro exam: Face symmetric, tongue midline, strong symmetric eye closure intact strong face deviation and shoulder shrug. Sensation intact to light touch throughout 5 out of 5 strength in bilateral upper extremities, 5 and 5 strength in lower extremities bilaterally? PSYCHIATRIC: Alert. Appearance appropriate for situation. Attitude cooperative. Medical Decision Making Medical Decision Making MDM Narrative: Medical Decision Makin-year-old male with nonsyncopal fall per description injuries sustained above. Head and cervical spine without traumatic injuries. X-ray of the chest and knees without acute traumatic or medical pathology. Patient otherwise steady no complaints. Skin tear dressed with iodoform gauze in the right arm. No actionable findings on lab work nonspecific leukocytosis which has been present in the past. No suggestion clinically of syncope. Son eager to take him home. Preliminary Favored Differential Diagnosis: Nonsyncopal fall, concussion, ICH or traumatic neck injury, skin tear, electrolyte derangement, knee injury internal or bony injury among additional considered etiologies Testing Interpreted Independently: Not Applicable Radiology or Lab testing Results Reviewed: No fracture or other acute pathology of the knees and chest x-ray, CTs head and cervical spine negative for acute traumatic injuries Consults: Not Applicable Independent Historians/External Chart Reviews: Son provided additional history of his living situation ambulatory status Social Determinants of Health Impacting MDM/Planning: Not Applicable Lab Data 09/01/24 14:09 09/01/24 14:09 Labs: Lab Results 09/01/24 Range/Units 14:09 WBC 16.7 H (4.8-10.8) X10*3/uL RBC 5.64 D (4.60-5.80) X10*6/uL Hgb 12.1 L D (14.0-18.0) g/dl Hct 41.3 L D (42.0-52.0) % MCV 73.2 L (80.0-98.0) fL MCH 21.5 L (27.0-33.0) pg MCHC 29.3 L (31.0-36.0) g/dl RDW 23.6 H (11.0-16.0) % Plt Count 232 D (160-400) X10*3/uL MPV Not Reportable Immature Gran % (Auto) 0.5 H (0.0-0.4) % Neut % (Auto) 63.2 (45-73) % Lymph % (Auto) 15.6 L (20-40) % F[place]ardo % (Auto) 6.5 (2-11) % Eos % (Auto) 13.6 H (0-4) % Baso % (Auto) 0.6 (0-2) % Lymph # (Auto) 2.6 (1.2-4.9) X10*3/uL [place]ardo # (Auto) 1.1 (0.1-1.2) X10*3/uL Eos # (Auto) 2.3 H (0.0-0.4) X10*3/uL Baso # (Auto) 0.1 (0.0-0.2) X10*3/uL Abs Immat Gran (auto) 0.09 H (0.00-0.03) X10*3/uL Absolute Neuts (auto) 10.5 H (2.0-8.3) x10*3/uL Absolute Nucleated RBC 0.000 (0.0-0.012) X10*3/uL Nucleated RBC % (auto) 0.0 (0.0-0.2) /100WBC Smear Tech's Comments VERIFIED APTT 48.3 H D (26.0-36.8) SEC Sodium 138 (135-145) mmol/L Potassium 4.0 (3.3-5.1) mmol/L Chloride 100 (96-108) mmol/L Carbon Dioxide 30 H (22-29) mmol/L Anion Gap 12 (12-20) BUN 13 (9-16) mg/dL Creatinine 1.23 (0.5-1.4) mg/dL Estim Creat Clear Calc 32.5 Estimated GFR 55 Random Glucose 78 (60-115) mg/dL Calcium 8.5 D (8.4-10.2) mg/dL Total Bilirubin 0.4 (0.0-1.0) mg/dL Direct Bilirubin 0.2 (0.0-0.5) mg/dL AST 46 H (5-37) U/L ALT 31 (0-40) U/L Alkaline Phosphatase 91 (39-117) U/L Troponin I High Sens < 2.7 D (<3.5-35.0) ng/L Total Protein 6.6 (6.5-8.0) g/dL Albumin 3.7 (3.5-5.0) g/dL Ethyl Alcohol < 10 mg/dL Blood Type A Positive Antibody Screen NEGATIVE Discharge Plan Discharge Clinical Impression: Concussion, Skin tear of right upper extremity Patient Disposition: Home, Self-Care Instructions: Concussion (ED) Additional Instructions: _ DISCHARGE DIAGNOSES: Fall, head strike likely concussion no significant injuries identified. Skin tear on the right arm needs wound care follow up with PCP for evaluation of the wound and few days. Daily dressing changes as described HISTORY OF PRESENTATION: ?Fall without passing out head strike arm pain knee pain EMERGENCY DEPARTMENT COURSE,TESTS, TREATMENTS: While in the ED today you had CT of the head and cervical spine as well as x-rays of the knee and chest without significant injuries identified. Lab work was reassuring and about baseline. The skin tear in the right arm was addressed with antibiotic gauze DISCHARGE MEDICATIONS: ?[We have made no changes to your regular medication regimen] FOLLOW-UP: ?Call your primary or general physician soon as possible to discuss your symptoms, your ED visit and to discuss follow up plans Call your PCP for follow up INSTRUCTIONS ?& RETURN PRECAUTIONS: If any symptoms change first call your primary physician, if it is after-hours your primary doctors office should have a provider community service organization director you can speak with. If the symptoms are severe or very concerning to you then call 911 or return to the ED. Put a fresh clean dressing on the right skin wound daily follow up with the PCP return if it looks infected or draining Taqueria Mon MD Emergency Physician [facility] Prescriptions: No Action cyanocobalamin (vitamin B-12) 1,000 mcg tablet 1,000 mcg PO DAILY albuterol sulfate 90 mcg/actuation HFA aerosol inhaler 1 puff INHALATION Q6H PRN (Reason: asthma) ipratropium-albuterol 0.5 mg-3 mg(2.5 mg base)/3 mL Solution For Nebulization 3 ml INHALATION Q4H PRN (Reason: Wheezing) levothyroxine 75 mcg Tablet 75 mcg PO DAILY@0600 Qty: 30 0RF albuterol sulfate 2.5 mg /3 mL (0.083 %) solution for nebulization 2.5 mg inhalation Q8H PRN (Reason: Shortness Of Breath Or Wheezing) furosemide 20 mg tablet 20 mg PO DAILY amoxicillin-pot clavulanate 875-125 mg tablet 1 tab PO BID Qty: 10 0RF Trelegy Ellipta 200-62.5-25 mcg blister with device 1 inh INHALATION DAILY [id number]-lavxongv-qycsll Tablet 1 tab PO DAILY acetaminophen 325 mg Tablet 650 mg PO Q6H PRN (Reason: pain or fever) magnesium hydroxide [Milk of Magnesia] 400 mg/5 mL Suspension 30 ml PO Q24H PRN (Reason: Constipation) bisacodyl 10 mg Suppository 10 mg VT BEDTIME PRN (Reason: Constipation) Fleet Enema 19-7 gram/118 mL Enema 118 ml VT DAILY PRN (Reason: Constipation) amiodarone 200 mg tablet 200 mg PO DAILY atorvastatin 20 mg tablet 20 mg PO BEDTIME Interventions: ED Discharge Assessment Last Done: 09/01/24 16:17 Discharge Date/Time: 09/01/24 16:18 Print Language: Unable To Collect
[2024-09-01 12:49] VITALS: BP 135/69; PULSE 54; RESP 20; TEMP 36.6; O2SAT 100
--- OUTSIDE RECORDS SUMMARY | 2024-09-01 12:55 | XMS_ITS | Clinical Summary ---
Author Organization [address] Address [address] [place] [address] Phone Care Team Providers Care Ceramics Instructor Name Role Phone Mark Chance MD Primary Care Provider Encounters Date Type Department Care Team Description 07/19/2024 Lab Requisition [facility] [address] [place] [phone] Taye Kc MD Unspecified atrial fibrillation ([facility] V24, [facility] V28); Anemia, unspecified 07/16/2024 Lab Requisition [facility] [address] [place] [phone] Taye Kc MD Pneumonia, unspecified organism; Chronic obstructive pulmonary disease, unspecified ([facility] V24, [facility] V28); Essential (primary) hypertension 07/10/2024 Lab Requisition [facility] [address] [place] [phone] Taye Kc MD Unspecified atrial fibrillation ([facility] V24, [facility] V28); Anemia, unspecified 07/06/2024 Lab Requisition [facility] [address] [place] [phone] Taye Kc MD Chronic obstructive pulmonary disease, unspecified (CMS/HCC V24, [facility] V28) 07/05/2024 Lab Requisition [facility] [address] [place] [phone] Taye Kc MD Unspecified atrial fibrillation ([facility] V24, [facility] V28); Anemia, unspecified 07/02/2024 Lab Requisition [facility] [address] [place] [phone] Taye Kc MD Unspecified atrial fibrillation ([facility] V24, [facility] V28); Anemia, unspecified 06/25/2024 Lab Requisition [facility] [address] [place] [phone] Taye Kc MD Unspecified atrial fibrillation ([facility] V24, [facility] V28); Anemia, unspecified 06/18/2024 Lab Requisition [facility] [address] [place] [phone] Taye Kc MD Unspecified atrial fibrillation ([facility] V24, [facility] V28); Anemia, unspecified 06/11/2024 Lab Requisition [facility] [address] [place] [phone] Taye Kc MD Unspecified atrial fibrillation ([facility] V24, [facility] V28); Anemia, unspecified 06/04/2024 Lab Requisition [facility] [address] [place] [phone] Taye Kc MD Pneumonia, unspecified organism; Essential (primary) hypertension; Unspecified atrial fibrillation ([facility] V24, [facility] V28); Anemia, unspecified from Last 3 Months Social History [...] Vaccines (1 of 2) 08/30/1985 RSV Immunization Adult Patients (1 - 1-dose 75+ series) 08/30/2010 Pneumococcal Vaccine: 50+ Years (2 of 2 - PCV) 11/25/2015 11/24/2014 COVID-19 Vaccine (3 - season) 2023 05/21/2021, 04/23/2021 Depression Screening 04/28/2024 Falls Risk Assessment 04/28/2024 Medicare Annual Wellness Visit 04/28/2024 Social Influencers of Health Screening 04/28/2024 Influenza Vaccine (#1) 2024 , 12/15/2020, 02/03/2020, Additional history exists Hypertension/CHF/CAD Annual BMP Blood Test 07/16/2025 07/16/2024, 07/06/2024, 06/21/2024, Additional history exists Cholesterol Screening (Lipid Panel) 04/28/2029 04/28/2024 HIB [...] age to complete this topic Meningococcal B Vaccine Aged Out No l onger eligible based on patient's age to complete this topic RSV Immunization Patients Under 20 months Aged Out No longer eligible based on patient's age to complete this topic Varicella Vaccines Aged Out No longer eligible based on patient's age to complete this topic Procedures Procedure Name Priority Date/Time Associated Diagnosis Comments BASIC METABOLIC PANEL Routine 07/16/2024 9:50 AM EDT Pneumonia, unspecified organism Chronic obstructive pulmonary disease, unspecified (CMS/HCC V24, CMS/HCC V28) Essential (primary) hypertension COMPLETE BLOOD COUNT Routine 07/16/2024 9:50 AM EDT Pneumonia, unspecified organism Chronic obstructive pulmonary disease, unspecified (CMS/HCC V24, CMS/HCC V28) Essential (primary) hypertension COMPLETE BLOOD COUNT Routine 07/12/2024 8:44 AM EDT Unspecified atrial fibrillation (CMS/HCC V24, CMS/HCC V28) Anemia, unspecified BASIC METABOLIC PANEL Routine 07/06/2024 9:36 AM EDT Chronic obstructive pulmonary disease, unspecified (CMS/HCC V24, CMS/HCC V28) COMPLETE BLOOD COUNT Routine 07/06/2024 9:36 AM EDT Chronic obstructive pulmonary disease, unspecified (CMS/HCC V24, CMS/HCC V28) COMPLETE BLOOD COUNT Routine 06/28/2024 8:17 AM EDT Unspecified atrial fibrillation (CMS/HCC V24, CMS/HCC V28) Anemia, unspecified COMPREHENSIVE METABOLIC PANEL Routine 06/21/2024 8:16 AM EDT Unspecified atrial fibrillation (CMS/HCC V24, CMS/HCC V28) Anemia, unspecified COMPLETE BLOOD COUNT Routine 06/21/2024 8:16 AM EDT Unspecified atrial fibrillation (CMS/HCC V24, CMS/HCC V28) Anemia, unspecified COMPREHENSIVE METABOLIC PANEL Routine 06/07/2024 8:28 AM EDT Pneumonia, unspecified organism Essential (primary) hypertension Unspecified atrial fibrillation (CMS/HCC V24, CMS/HCC V28) Anemia, unspecified COMPLETE BLOOD COUNT Routine 06/07/2024 8:28 AM EDT Pneumonia, unspecified organism Essential (primary) hypertension Unspecified atrial fibrillation (CMS/HCC V24, CMS/HCC V28) Anemia, unspecified LIPID PANEL WITH REFLEX TO DIRECT LDL Routine 04/28/2024 5:40 AM EST Pneumonia, unspecified organism Chronic obstructive pulmonary disease, unspecified (CMS/HCC) Hyperlipidemia, unspecified Vitamin D deficiency, unspecified Vitamin B12 deficiency anemia, unspecified from Last 3 Months or Most Recently Relevant to Health Maintenance Results * (ABNORMAL) Complete blood count (07/16/2024 9:50 AM EDT) Only the most recent of6 resultswithin the time period is included. Pathologist [facility] WBC 15.5(H) 4.8 - 10.8 K/mcL LAB HEMETOLOGY METHOD 07/16/2024 11:20 AM [facility] RBC 4.90 4.50 - 5.50 M/mcL LAB HEMETOLOGY METHOD 07/16/2024 11:20 AM [facility] Hemoglobin 10.4(L) 13.5 - 17.5 g/dL LAB HEMETOLOGY METHOD 07/16/2024 11:20 AM [facility] Hematocrit 37.6(L) 42.0 - 54.0 % LAB HEMETOLOGY METHOD 07/16/2024 11:20 AM [facility] MCV 76.9(L) 79.0 - 98.0 FL LAB HEMETOLOGY METHOD 07/16/2024 11:20 AM [facility] MCH 21.3(L) 27.0 - 32.0 pcg LAB HEMETOLOGY METHOD 07/16/2024 11:20 AM [facility] MCHC 27.7(L) 32.0 - 37.0 g/dL LAB HEMETOLOGY METHOD 07/16/2024 11:20 AM [facility] RDW 23.9(H) 11.0 - 15.0 % LAB HEMETOLOGY METHOD 07/16/2024 11:20 AM [facility] Platelets 200 130 - 400 K/mcL LAB HEMETOLOGY METHOD 07/16/2024 11:20 AM [facility] MPV LAB HEMETOLOGY METHOD 07/16/2024 11:20 AM [facility] Comment:Not Measured NRBC 0.1 <1.0 % LAB HEMETOLOGY METHOD 07/16/2024 11:20 AM [facility] NRBC Absolute 0.02 <0.10 K/mcL LAB HEMETOLOGY METHOD 07/16/2024 11:20 AM [facility] Blood Venous blood specimen / Unknown Venipuncture / Unknown 07/16/2024 9:50 AM EDT 07/16/2024 10:19 AM EDT us Taye Kc MD LAB BLOOD ORDERABLES Final R esult [facility] [address] [place] [address], * (ABNORMAL) Basic metabolic panel (07/16/2024 9:50 AM EDT) Only the most recent of2 resultswithin the time period is included. Sodium 137 133 - 145 mmol/L LAB CHEMISTRY METHOD 07/16/2024 1:09 PM [facility] Potassium 4.0 3.5 - 5.5 mmol/L LAB CHEMISTRY METHOD 07/16/2024 1:09 PM [facility] Chloride 103 96 - 110 mmol/L LAB CHEMISTRY METHOD 07/16/2024 1:09 PM [facility] CO2 24 21 - 32 mmol/L LAB CHEMISTRY METHOD 07/16/2024 1:09 PM [facility] Anion Gap 10 3 - 11 LAB CHEMISTRY METHOD 07/16/2024 1:09 PM [facility] Glucose 114(H) 70 - 100 mg/dL LAB CHEMISTRY METHOD 07/16/2024 1:09 PM [facility] BUN 20 5 - 25 mg/dL LAB CHEMISTRY METHOD 07/16/2024 1:09 PM [facility] Creatinine 0.89 0.70 - 1.30 mg/dL LAB CHEMISTRY METHOD 07/16/2024 1:09 PM [facility] eGFR 82 >=60 mL/min/1. 73m2 LAB CHEMISTRY METHOD 07/16/2024 1:09 PM [facility] Comment:Calculation based on the Chronic Kidney Disease Epidemiology Collaboration (CKD-EPI) equation refit without adjustment for race. BUN/Creatinine Ratio 22.5 LAB CHEMISTRY METHOD 07/16/2024 1:[address] [facility] Calcium 6.5(L) 8.5 - 10.5 mg/dL LAB CHEMISTRY METHOD 07/16/2024 1:[address] [facility] Blood Venous blood specimen / Unknown Venipuncture / Unknown 07/16/2024 9:50 AM EDT 07/16/2024 10:19 AM EDT us Taye Kc MD LAB BLOOD ORDERABLES Final R esult [facility] [address] [place] [address], [place] [phone] * (ABNORMAL) Comprehensive metabolic panel (06/21/2024 8:16 AM EDT) Only the most recent of2 resultswithin the time period is included. Sodium 130(L) 133 - 145 mmol/L LAB CHEMISTRY METHOD 06/21/2024 12:52 PM [facility] Potassium 4.4 3.5 - 5.5 mmol/L LAB CHEMISTRY METHOD 06/21/2024 12:52 PM [facility] Chloride 94(L) 96 - 110 mmol/L LAB CHEMISTRY METHOD 06/21/2024 12:52 PM [facility] CO2 27 21 - 32 mmol/L LAB CHEMISTRY METHOD 06/21/2024 12:52 PM [facility] Anion Gap 9 3 - 11 LAB CHEMISTRY METHOD 06/21/2024 12:52 PM [facility] Glucose 62(L) 70 - 100 mg/dL LAB CHEMISTRY METHOD 06/21/2024 12:52 PM [facility] BUN 11 5 - 25 mg/dL LAB CHEMISTRY METHOD 06/21/2024 12:52 PM [facility] Creatinine 0.72 0.70 - 1.30 mg/dL LAB CHEMISTRY METHOD 06/21/2024 12:52 PM [facility] eGFR 88 >=60 mL/min/1. 73m2 LAB CHEMISTRY METHOD 06/21/2024 12:52 PM [facility] Comment:Calculation based on the Chronic Kidney Disease Epidemiology Collaboration (CKD-EPI) equation refit without adjustment for race. BUN/Creatinine Ratio 15.3 LAB CHEMISTRY METHOD 06/21/2024 12:52 PM [facility] Calcium 8.1(L) 8.5 - 10.5 mg/dL LAB CHEMISTRY METHOD 06/21/2024 12:52 PM [facility] AST (SGOT) 45(H) 10 - 42 unit/L LAB CHEMISTRY METHOD 06/21/2024 12:52 PM [facility] ALT (SGPT) 59 10 - 60 unit/L LAB CHEMISTRY METHOD 06/21/2024 12:52 PM [facility] Alkaline Phosphatase 73 42 - 121 unit/L LAB CHEMISTRY METHOD 06/21/2024 12:52 PM [facility] Total Protein 5.7(L) 6.0 - 8.0 g/dL LAB CHEMISTRY METHOD 06/21/2024 12:52 PM [facility] Albumin 2.8(L) 3.2 - 5.0 g/dL LAB CHEMISTRY METHOD 06/21/2024 12:52 PM [facility] Total Bilirubin 0.6 0.0 - 1.4 mg/dL LAB CHEMISTRY METHOD 06/21/2024 12:52 PM [facility] Blood Venous blood specimen / Unknown Venipuncture / Unknown 06/21/2024 8:16 AM EDT 06/21/2024 10:12 AM EDT Taye Kc MD LAB BLOOD ORDERABLES Final R esult [facility] [address] [place] [address], [place] [phone] * (ABNORMAL) Lipid panel with reflex to direct LDL (04/28/2024 5:40 AM EST) Cholesterol 149 0 - 200 mg/dL LAB CHEMISTRY METHOD 04/28/2024 2:[address] [facility] Triglycerides 174(H) 0 - 150 mg/dL LAB CHEMISTRY METHOD 04/28/2024 2:[address] [facility] HDL 62 >=40 mg/dL LAB CHEMISTRY METHOD 04/28/2024 2:[address] [facility] LDL Calculated 52 0 - 100 mg/dL LAB CHEMISTRY METHOD 04/28/2024 2:[address] [facility] VLDL Cholesterol Leroy 34.8 mg/dL LAB CHEMISTRY METHOD 04/28/2024 2:[address] [facility] Non HDL Chol. (LDL+VLDL) 87 <145 mg/dL LAB CHEMISTRY METHOD 04/28/2024 2:[address] [facility] Chol/HDL Ratio 2.4 0.0 - 4.4 LAB CHEMISTRY METHOD 04/28/2024 2:[address] [facility] Blood Venous blood specimen / Unknown Venipuncture / Unknown 04/28/2024 5:40 AM EST 04/28/2024 9:54 AM EST us Mark Chance MD LAB BLOOD ORDERABLES Final Resul t [facility] [address] [place] [address], [place] [phone] from Last 3 Months or Most Recently Relevant to Health Maintenance Insurance MEDICARE [facility] Care Teams Ceramics Instructor Relationship Specialty Start Date End Date Mark Chance MD [address] [place] [address] [address] [place] [address] PCP - General Geriatric Medicine 04/28/24
--- OUTSIDE RECORDS SUMMARY | 2024-09-01 12:55 | XMS_ITS | Encounter Summary ---
Author Organization [facility] Address [address] [place] [address] Care Team Providers Care Body Straightener Name Role Phone Stephanie Gillespie Primary Care Provider [phone] Encounter Details Date Type Department Care Team (Late st Contact Info) Description 04/28/[address] [facility] [address] [place] [address] Hernan Keen MD [address] [place] [address] Social History Tobacco Use Types Packs/Day Years [...] on filedocumented in this encounter Care Teams Body Straightener Relationship Specialty Start Date End Date Stephanie Gillespie [address] [address] PCP - General Internal Medicine 04/17/20 documented as of this encounter
[2024-09-01 14:18] LABS: Hematocrit 41.3 % (42.0-52.0); Hemoglobin 12.1 g/dl (14.0-18.0); Imm Gran Abs Auto 0.09 X10*3/uL (0.00-0.03); Imm Gran Pct Auto 0.5 % (0.0-0.4); Lymphocytes Absolute Auto 2.6 X10*3/uL (1.2-4.9); MANUAL DIFF FLAG SCAN; Mean Corpuscular HGB Conc 29.3 g/dl (31.0-36.0); Mean Corpuscular Hemoglobin 21.5 pg (27.0-33.0); Mean Corpuscular Volume 73.2 fL (80.0-98.0); NRBC Abs Auto 0.000 X10*3/uL (0.0-0.012); NRBC Pct Auto 0.0 /100WBC (0.0-0.2); Platelet Count 232 X10*3/uL (160-400); Red Blood Count 5.64 X10*6/uL (4.60-5.80); SCAN SMEAR FLAG 1; White Blood Count 16.7 X10*3/uL (4.8-10.8)
[2024-09-01 14:24] LABS: Partial Thromboplastin Time 48.3 SEC (26.0-36.8)
[2024-09-01 14:33] LABS: Alanine Aminotransferase 31 U/L (0-40); Albumin Level 3.7 g/dL (3.5-5.0); Alkaline Phosphatase 91 U/L (39-117); Anion Gap 12 (12-20); Aspartate Amino Transferase 46 U/L (5-37); Blood Urea Nitrogen 13 mg/dL (9-16); Calcium 8.5 mg/dL (8.4-10.2); Carbon Dioxide 30 mmol/L (22-29); Chloride 100 mmol/L (96-108); Creatinine Clr Calc Pharmacy 32.5; Estimated Glomerular Filt Rate 55; Potassium 4.0 mmol/L (3.3-5.1); Sodium 138 mmol/L (135-145); Total Protein 6.6 g/dL (6.5-8.0)
[2024-09-01 14:40] LABS: Troponin-I High Sensitivity < 2.7 ng/L (<3.5-35.0)
[2024-09-01 15:21] VITALS: BP 127/58; PULSE 52; RESP 22; TEMP 36.3; O2SAT 96
--- NOTE | 2024-09-01 15:51 | PC.NURSE ---
Pt son came out and approached staff that no one had gone into the pts room, and that he was going to call the PRINCIPAL STATISTICAL SCIENTIST, and that he has worked her before and that it is not okay for him to be ignored. This RN is charge, This RN touched base with primary RN, primary MD. Tech went into room to talk with family and patient, emotional support provided, plan of care gone over. Provider currently at bedside as well. nib assembler left room at this time as son had all questions and concerns answered
[2024-09-01 16:17] VITALS: BP 127/58; PULSE 52; RESP 22; TEMP 36.3; O2SAT 96
== END 2024-09-01 16:18 | disposition home or self-care (01) ==
PROVIDERS: Emergency Provider Emergency Medicine; PCP Internal Medicine
DX: S06.0X0A Concussion without loss of consciousness, initial encounter (principal); S00.83XA Contusion of other part of head, initial encounter; S41.111A Laceration without foreign body of right upper arm, initial encounter; R51.9 Headache, unspecified; M79.601 Pain in right arm; M54.2 Cervicalgia; M25.562 Pain in left knee; M25.561 Pain in right knee; R07.89 Other chest pain; X58.XXXA Exposure to other specified factors, initial encounter; Y93.9 Activity, unspecified; Y92.9 Unspecified place or not applicable; Y99.8 Other external cause status; Z51.81 Encounter for therapeutic drug level monitoring; Z79.899 Other long term (current) drug therapy
CPT/HCPCS: 36415; 70450; 71045; 72125; 73564; 80053; 80307; 82248; 84484; 85025; 85730; 86850; 86900; 86901; 99284

== ENCOUNTER → 2024-09-01 12:09 | Outpatient (BNV) | payer MEDICARE, SELFPAY | PROVIDERS: Emergency Provider Emergency Medicine; PCP Internal Medicine; Visit Provider Radiology Diagnostic Radiology | DX: M47.812 Spondylosis without myelopathy or radiculopathy, cervical region (principal); I67.89 Other cerebrovascular disease; M85.861 Other specified disorders of bone density and structure, right lower leg; M85.862 Other specified disorders of bone density and structure, left lower leg; R05.9 Cough, unspecified; J44.9 Chronic obstructive pulmonary disease, unspecified | CPT/HCPCS: 71045; 73564 ==

== ENCOUNTER 2024-10-05 06:05 | Inpatient (IN) | payer MEDICARE, SELFPAY ==
--- OUTSIDE RECORDS SUMMARY | 2024-09-07 06:00 | XMS_ITS ---
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 Name Role Phone Dominga LÓPEZ, [facility] Primary Care Provider Aris Jeffries [phone] Allergies Allergen (clinical drug ingredient) Drug/Non Drug Allergy documented on EMR Reaction Allergy Type Onset Date Status Bee Sting Unknown Allergy Active REASON FOR VISIT Follow up Medications Medication SIG (Take, Route, Frequency, Duration) Notes Start Date End Date Status FLUoxetine HCl 10 MG TAKE 1 CAPSULE IN T HE MORNING ONCE A DAY ORALLY 30 DAY(S) Oral Active Cyanocobalamin 1000 MCG 1 tablet Orally Once a day 11/03/2013 Active Plavix 75 MG 1 tablet Orally Once a day 07/04/2020 Active Cilostazol 50 MG 1 tablet 30 minutes before or 2 hours after breakfast and dinner Orally Twice a day 07/04/2020 Active Furosemide 40 MG TAKE 1 TABLET BY SHO TH EVERY DAY Oral Active Nitroglycerin 0.4 MG 1 tablet [...] Date Provider Diagnosis Aris Garzon III, MD [address] [place] [address] [place] [address] 09/07/2024 Aris Garzon B12 deficiency E53.8 Assessments Encounter Date Diagnosis (ICD Code) Assessment Notes Treatment Notes Treatment Clinical Notes 09/07/2024 B12 deficiency (ICD-10 - E53.8) Comprehensive blood work is not available. It was ordered with a vitamin B12 level. He will continue on supplementation. Plan Of Treatment Medication Medication Name Sig Start Date Stop Date Notes FLUoxetine HCl 10 MG TAKE 1 CAPSULE IN T HE MORNING ONCE A DAY ORALLY 30 DAY(S) Oral Cyanocobalamin 1000 MCG 1 tablet Orally Once a day 014 Plavix 75 MG 1 tablet Orally Once a day 07/04/2020 Cilostazol 50 MG 1 tablet 30 minutes before or 2 hours after breakfast and dinner Orally Twice a day 07/04/2020 Furosemide 40 MG TAKE 1 TABLET BY SHO TH EVERY DAY Oral Nitroglycerin 0.4 MG 1 tablet under [...] Once a day 10/15/2019 Progress Notes * Valentin SHELTONKatarzynaOB:1935 (89 yo M)Acc No.[id number]:09/07/2024 Progress Notes Patient: Wyatt BAUER Provider: Stephanie Garzon MD :1935 A ge:89 Y S ex:Male Date:09/07/2024 Address:[address] [place] [address] [phone] Pcp:Stephanie Orr MD Subjective: * Chief Complaints: * 1 . Follow up. * HPI: C OVID-19 Screening: Questions H ave you had any new onset fever, chills, cough, congestion, sore throat, shortness of breath, muscle aches? N o * ROS: G eneral/Constitutional: pain o nly normal aches and pains. C hills d enies.?Fatigue a dmits. F ever d enies. E NT: Decreased hearing d enies. R espiratory: Cough d enies. C ardiovascular: Chest pain with exertion d enies. D yspnea on exertion?denies. S hortness of breath d enies. G astrointestinal: Constipation d enies. D ecreased appetite d enies.?Diarrhea d enies. H eartburn d enies. N ausea d enies. R ectal bleeding?denies. V omiting d enies. H ematology: bruising d enies. p etechiae d enies. S wollen glands n one have been noted. G enitourinary: Frequent urination d enies. M usculoskeletal: Muscle aches d enies. P ainful joints d enies. S ciatica d enies. W eakness d enies. S kin: Itching d enies. R janna d enies. S kin lesion(s)?denies. N eurologic: Difficulty speaking d enies. D izziness d enies.?Headache d enies. L ow back pain d enies. P sychiatric: Depressed mood d enies. * Medical History: C OPD (chronic obstructive pulmonary disease), ETOH abuse, CAD (coronary artery disease), Atrial tachycardia, Sessile colonic polyp, Diverticulosis of colon, Tobacco abuse disorder, Vitamin B 12 deficiency, Major depression, Macrocytosis, Hyperlipidemia, Bifascicular block, 1.7 cm nodular lesion medial right lower lobe December 2012, Rotator cuff tear right, Left arm erythromelalgia. * Surgical History: c olonoscopy sessile polyp. Dr. Westfall 2012, fracture right ankle , right rotator cuff surgery 03/1990, [facility] vein surgery 05/2020. * Hospitalization/Major Diagno stic Procedure: D enies Past Hospitalization. * Family History: F ather: , Lung disease, diagnosed with CVD. M other: , Heart problems, diagnosed with CVD. 1 brother(s) , 2 sister(s) - healthy. 3 son(s) , 1 daughter(s) . . His daughter has had vascular surgery. * Social History: T obacco Use: T obacco Use/Smoking P margarito is a c urrent smoker H ow often do you smoke cigarettes? e very day H ow many cigarettes a day do you smoke? 2 1-30 H ow soon after you wake up do you smoke your first cigarette? 3 1-60 minutes A re you interested in quitting? N ot ready to quit A dditional Findings: Tobacco User H eavy cigarette smoker (20-39 cigs/day) Johny tello has been for many years. He lives in [place], [place]. He is retired. He consumes about 20 cans of beer a week. * Medications: T aking Lidoderm 5 % Patch 1 patch remove [...] reviewed and reconciled with the patient * Allergies: B ee Sting. Objective: * Vitals: * Examination: G eneral Examination: GENERAL APPEARANCE: p leasant, well nourished, well developed, in no acute distress, calm and relaxed. HEAD: a traumatic, normocephalic. EYES: e tod, perrla, anicteric, conjugate. EARS: n ormal. NOSE: s eptum intact. ORAL CAVITY: n ormal, unremarkable. NECK/THYROID: n o jugular venous distention, no carotid bruit, thyroid normal. LYMPH NODES: n o enlarged lymph nodes,spleen normal. SKIN: n o suspicious lesions, anicteric. HEART: n o clicks, gallops, murmurs, or rubs, regular rhythm, S1, S2 normal, no s3, or vascular bruits. LUNGS: c lear to auscultation . BREASTS: no masses palpable bilaterally. ABDOMEN: b owel sounds normal, no ascites, no organomegaly, no mass. RECTAL EXAM: n ot examined. MUSCULOSKELETAL: e xtremities unremarkable, no clubbing, cyanosis or edema. PERIPHERAL PULSES: n ormal. NEUROLOGIC: a lert and oriented, cranial nerves 2-12 grossly intact, deep tendon reflexes 2+ symmetrical, motor strength normal upper and lower extremities, sensory exam intact. PSYCH: a lert, oriented. Assessment: * Assessment: 1. B 12 deficiency - E53.8 N otes :Comprehensive blood work is not available. It was ordered with a vitamin B12 level. He will continue on supplementation. Plan: * Treatment: * Images: * The named appointment provid er may or may not be the originator of this progress note, and it is not deemed complete until electronically signed by the appointment provider. Sign off status: Pending * Provider: Stephanie Garzon MD Date: 0 09/07/2024 Generated for Tee veloz/Shanell/Rodriitting on: 0 10/05/2024 07:43 AM EDT History and Physical Notes * [...]
[2024-10-05] VITALS (12 sets, daily range): BP systolic 93–152; BP diastolic 58–92; PULSE 66–152; RESP 12–24; TEMP 36.7; O2SAT 84–98; BMI 24.7
--- NOTE | 2024-10-05 | ECG_ITS ---
Test Reason : FALL Blood Pressure : */* mmHG Vent. Rate : 150 BPM Atrial Rate : * BPM P-R Int : * ms QRS Dur : 156 ms QT Int : 296 ms P-R-T Axes : * -64 110 degrees QTcB Int : 467 ms Wide QRS tachycardia suspect SVT with abberrancy vs atrial flutter Left axis deviation Left bundle branch block Abnormal ECG When compared with ECG of 13-Jun-2024 07:22, Wide QRS tachycardia has replaced Sinus rhythm Vent. rate has increased by 56 bpm Referred By: Generic ED Physician Electronically Signed By: Darin Alvarenga
--- NOTE | ~2024-10-05 | XR_ITS ---
EXAMINATION: XR CHEST 1 VIEW HISTORY: sob COMPARISON: Comparison is made with the prior examination dated 09/01/2024. FINDINGS: A single AP portable view of the chest performed at 8:15 AM is submitted. Again seen are increased interstitial markings bilaterally with scarring in the left upper lobe. No new airspace opacity is identified. There is no pleural effusion, pneumothorax, or pulmonary vascular congestion. The heart is normal in size. The aorta is tortuous and calcified there are surgical clips at the GE junction.. There is degenerative disc disease of the spine. XR/XR chest 1V IMPRESSION: No acute cardiopulmonary abnormality. Electronically signed by: Aris Gonzalez MD 10/05/2024 08:40 AM EDT RP
--- NOTE | ~2024-10-05 | CT_ITS ---
EXAMINATION: CT HEAD WITHOUT CONTRAST CLINICAL INFORMATION: unwitnessed fall COMPARISON: September 01, 2024. TECHNIQUE: Contiguous axial imaging was performed from the skull base to vertex without intravenous administration of contrast. This CT examination was performed using dose optimization techniques as appropriate, variously including the following: *Automated exposure control *Adjustment of mA and/or kV according to patient size (this includes techniques or standardized protocols for targeted exams where dose is matched to indication/reason for exam; i.e. extremities or head) *Use of iterative reconstruction technique DLP: 907.28 mGy-cm FINDINGS: No acute cortical disruption in the bony calvarium. No acute intracranial hemorrhage, mass effect, midline shift, hydrocephalus or herniation. Prominence of the extra-axial CSF spaces along the hemicranial convexities suggesting volume loss versus chronic subdural hematomas versus hygromas. Bilateral multifocal patchy and confluent deep periventricular white matter hypodensities involving centrum semiovale and crenshaw radiata. Multifocal old lacunar infarcts, basal ganglia and extracapsular and likely jarrod. Calcified plaques in the cavernous supraclinoid segments both ICAs and V3/V4 segments of the vertebral arteries. Polypoid mucosal thickening, maxillary sinuses. No air-fluid levels in the paranasal sinuses. For pneumatization of the frontal sinuses. Tympanic cavities and mastoid cells are aerated. No hematoma is in the intraconal or extraconal compartments of the orbits. The eyeballs are intact. Edentulous. There is normal position of the cerebellar tonsils. CT/CT head/brain wo IV con IMPRESSION: No acute fracture, bony calvarium. No acute intracranial hemorrhage. Small vessel occlusive disease. Global cerebral atrophy. Atherosclerosis disease, intracranial. Chronic polypoid paranasal sinus disease. Electronically signed by: Kj Rivera MD 10/05/2024 09:24 AM EDT
--- NOTE | ~2024-10-05 | CT_ITS ---
EXAMINATION: CT CERVICAL SPINE WITHOUT CONTRAST CLINICAL INFORMATION: Unwitnessed fall. COMPARISON: September 01, 2024. TECHNIQUE: Contiguous axial images through the cervical spine using 2 mm collimation with bone and soft tissue algorithm. Sagittal and coronal reformatted images acquired. DLP: 347.[address] examination was performed using dose optimization techniques as appropriate, variously including the following: *Automated exposure control *Adjustment of mA and/or kV according to patient size (this includes techniques or standardized protocols for targeted exams where dose is matched to indication/reason for exam; i.e. extremities or head) *Use of iterative reconstruction technique FINDINGS: Craniocervical junction is intact with normal alignment between the occipital condyles and the lateral masses of C1. C1 is intact. C2 is intact. C3 is intact. C4 is intact. C5 is intact. C6 is intact. C7 is intact. No prevertebral compartment hematoma. Calcified plaques in the carotid bulbs and ICAs. No dominant nodules in the thyroid gland. Calcified plaques in the thoracic aortic arch and its main branches. Bilateral apical lung scarring. Osteopenia versus osteoporosis. Anterior marginal osteophyte formation and endplate sclerosis and irregularity with subchondral cyst formation at C3-4 to a lesser extent C2-3. Anterior marginal osteophyte formation T1-2. Grade 1 retrolisthesis C4-5 and C5-6 on a degenerative basis. CT/CT cervical spine wo IV con IMPRESSION: No acute fracture or trauma-related listhesis. Multilevel spondylosis. Atherosclerosis disease. Osteopenia versus osteoporosis. Fleischner guidelines were followed. Electronically signed by: Kj Rivera MD 10/05/2024 09:30 AM EDT
--- NOTE | ~2024-10-05 | CT_ITS ---
EXAMINATION: CT CHEST WITHOUT CONTRAST CLINICAL INFORMATION: Probable pneumonia. COMPARISON: April 28, 2024. TECHNIQUE: Multidetector volumetric CT imaging of the chest was done. Axial MIP volume rendering provided. Sagittal and coronal reformatted images were obtained. This CT examination was performed using dose optimization techniques as appropriate, variously including the following: *Automated exposure control *Adjustment of mA and/or kV according to patient size (this includes techniques or standardized protocols for targeted exams where dose is matched to indication/reason for exam; i.e. extremities or head) *Use of iterative reconstruction technique. DLP: 258.62 mGy centimeter. FINDINGS: Patient's motion artifact. BALANCE ASSEMBLER: Metallic vascular clips at the gastroesophageal junction region. LUNGS: Multifocal patchy and confluent pulmonary groundglass, right lower lung lobe and to a lesser extent left upper lung lobe and left lung base. Peribronchial septal thickening involving mostly the right lower lung lobe bronchi. Secretions layering within the trachea and likely the right mainstem bronchi and bronchioles to the right lower lung lobe. No bronchiectasis. No honeycombing. Bilateral apical lung scarring. No gross emphysematous changes. MEDIASTINUM: Prominent, nonspecific lymph nodes. Calcified plaques in the thoracic aorta wall and its main branches with the tortuosity and the descending thoracic aorta. Large calcified plaque likely obstructing the proximal left subclavian artery. The ascending thoracic aorta diameter is 4.3 cm. The descending thoracic aorta diameter is 3.5 cm. The thoracic aortic arch diameter is 3.3 cm. Calcified plaques in the coronary arteries. No gross pericardial effusion. No hemopericardium. No pneumomediastinum. Gas and fluid within the intrathoracic segment of the esophagus. CORONARY ARTERY CALCIFICATION: Calcified plaques. PLEURA: Bilateral small pleural effusions. Minimal calcified pleural plaques in the upper thorax. No hemothorax. No pneumothorax.. AXILLA: No lymphadenopathy. UPPER ABDOMEN: Vascular clips at the gastroesophageal junction. The spleen appears prominent. Calcified plaques in the abdominal aorta and the origin of the celiac trunk. OSSEOUS STRUCTURES: Compression fracture deformities representing 80% volume loss at T5 and T8 resulting in 3 mm retropulsion upon central canal. Superior endplate compression deformity representing 20% volume loss at T10. Osteopenia versus osteoporosis. Kyphotic deformity apex at T6-7. Sternum is intact. Scapula is intact. No gross acute rib fracture. CT/CT chest wo IV con IMPRESSION: Multifocal pneumonia likely related to aspiration. Coronary artery disease and atherosclerosis disease. Subacute to old compression fractures T5 T8 and to a lesser extent T10. Fleischner guidelines were followed. Electronically signed by: Kj Rivera MD 10/05/2024 09:40 AM EDT
--- NOTE | ~2024-10-05 | US_ITS ---
EXAMINATION: US TRIPLEX LOWER EXTREMITY, LEFT CLINICAL INFORMATION: Pain and edema, left lower extremity. COMPARISON: None available. TECHNIQUE: Color-flow triplex imaging with spectral analysis and compression Doppler were performed on the left lower extremity. FINDINGS: Respiratory variation, normal compression and augmented flow are demonstrated in the interrogated left common femoral vein, superficial femoral vein, profunda femoral vein, popliteal vein and midcalf peroneal and posterior tibial venous segments thrombosis. There is no Blake's cyst. Edema pattern in the soft tissues without fluid collections. US/US venous duplex LE IMPRESSION: No acute deep venous thrombosis interrogated veins, left lower extremity. Negative for DVT. Electronically signed by: Kj Rivera MD 10/06/2024 12:20 PM EDT
[2024-10-05 06:53] LABS: Venous Blood Gas Refer to POC result
[2024-10-05 06:54] LABS: VBG HCO3 34 mmol/L (22-26); VBG O2 % Saturation 75.0 %
[2024-10-05 06:54] LABS: Hematocrit 51.7 % (42.0-52.0); Hemoglobin 15.5 g/dl (14.0-18.0); Imm Gran Abs Auto 0.06 X10*3/uL (0.00-0.03); Imm Gran Pct Auto 0.4 % (0.0-0.4); Lymphocytes Absolute Auto 1.9 X10*3/uL (1.2-4.9); MANUAL DIFF FLAG SCAN; Mean Corpuscular HGB Conc 30.0 g/dl (31.0-36.0); Mean Corpuscular Hemoglobin 22.2 pg (27.0-33.0); Mean Corpuscular Volume 74.0 fL (80.0-98.0); NRBC Abs Auto 0.000 X10*3/uL (0.0-0.012); NRBC Pct Auto 0.0 /100WBC (0.0-0.2); Platelet Count 167 X10*3/uL (160-400); Red Blood Count 6.99 X10*6/uL (4.60-5.80); SCAN SMEAR FLAG 1; White Blood Count 16.0 X10*3/uL (4.8-10.8)
--- NOTE | 2024-10-05 07:00 | CA_ITS ---
Transthoracic Echocardiogram Patient (Last, First, Middle): Wyatt Shelton, Gender: Male Date of : 1935 Age: 89 Procedure Date: 10/05/2024 Procedure Type: Transthoracic Echocardiogram Location: ER Height: 172.72 cm Weight: 73.48 kg BSA: 1.87 m2 Heart Rate: bpm BP: 108 / 65 mmHg Crystal Lapper: TO Referring MD: Darin Alvarenga MD Symptoms: SVT with aberrancy Study Quality: Fair/Contrast Conclusions: - Normal left ventricular cavity size. There is normal left ventricular wall thickness. The left ventricular systolic function is mild to moderately decreased. The visually estimated ejection fraction is between 35-40%. - The apex, apical septum, mid inferoseptal, and mid anteroseptal segments are hypokinetic. - The apical lateral and mid anterolateral segments are akinetic. - Normal right ventricular cavity size and systolic function. Findings Procedure Information Contrast agent, definity, is being given per protocol without apparent complications. Left Ventricle Normal left ventricular cavity size. There is normal left ventricular wall thickness. The left ventricular systolic function is mild to moderately decreased. The visually estimated ejection fraction is between 35-40%. There is evidence of regional wall motion abnormalities. Diastolic function is indeterminate on the basis of available data. Wall Motion Rest Echo Findings The apex, apical septum, mid inferoseptal, and mid anteroseptal segments are hypokinetic. The apical lateral and mid anterolateral segments are akinetic. Right Ventricle Normal right ventricular cavity size and systolic function. Atria The left atrium is normal in size. The right atrium is normal in size. Aortic Valve There is mild calcification of the aortic valve. There is no aortic valve stenosis. The peak aortic velocity is 1.54 m/s. The mean gradient is 6 mmHg. There is no aortic valve regurgitation. Mitral Valve The mitral valve appears normal. There is no mitral valve regurgitation. There is no mitral valve stenosis. Pulmonic Valve The pulmonic valve is normal. There is no pulmonic valve regurgitation. Tricuspid Valve Normal tricuspid valve structure. There is no tricuspid valve regurgitation. Tricuspid regurgitation envelope is inadequate for calculation of right ventricular systolic pressure. Normal right atrial pressure. Great Vessels All visible segments of the aorta are normal in size. The visualized portions of the pulmonary artery and branches are normal. Venous The inferior vena cava is normal in size and collapses greater than 50% with inspiration. Pericardium/Pleural There is no evidence of pericardial effusion. Prior Study Comparison Changes noted compared to prior study dated: 04/28/2024. EF 35 to 40%. RWMA as described. Measurements 2D Linear Measurements IVSd: 1.03 0.6-0.9/0.6-1.0 cm LVIDd: 4.09 3.9-5.3/4.2-5.9 cm LVIDd Index: 2.19 2.4-3.2/2.2-3.1 cm/m2 LVIDs: 3.17 2.0-3.6 cm LVPWd: 0.81 0.7-1.1 cm LV Mass: 145.39 67-162/88-224 g LV Mass Index: 77.75 43-95/49-115 g/m2 LVOT Diam: 2.20 3.0+(-)1.3 cm 2D Systolic Function EF 4C: 28.80 >55% Mitral Valve E'Lateral: 6.42 E'Medial: 3.70 Aortic Valve AoV Pk Aryan: 1.54 AoV Mn Aryan: 1.12 AoV VTI: 0.28 AoV Pk Grad: 9.00 Aov Mn Grad: 6.00 KANDACE Cont.VTI: 1.60 LVOT LVOT Pk Aryan: 0.64 LVOT Mn Aryan: 0.45 LVOT VTI: 0.12 LVOT Pk Grad: 2.00 LVOT Mn Grad: 1.00 LVOT Diam: 2.20 LVOT Area: 3.80 Diastolic Function E'Medial: 3.70 E' Laterial: 6.42 Right Ventricle TAPSE (mm): 18.50 TVS' Aryan: 11.90 Tricuspid Valve TR Pk Aryan: 2.11 TR Pk Grad: 18.00 Great Vessels Aorta Sinus of Valsalva: 3.86 2.0-3.5 cm Ao Asc: 3.60 2.1-3.4 cm Updated in Other Vendor System with Status of Final Darin Alvarenga MD electronically signed on 10/05/2024 1:27:33 PM with status of Final
[2024-10-05 07:02] LABS: Appearance Urine Clear; Glucose Urine UA Negative (Negative); PH 8.5 (5.0-9.0); Specific Gravity - Urine 1.010 (1.005-1.025); UMIC TRIGGER UACC YES
[2024-10-05] MEDS: Lactated Ringers 500 ML 999 ML IV (07:02)
[2024-10-05] MEDS: Adenosine 6 MG/2 ML VIAL IVPUSH (07:10)
[2024-10-05] MEDS: Adenosine 6 MG/2 ML VIAL 12 MG IVPUSH (07:12)
[2024-10-05 07:16] LABS: Alanine Aminotransferase 29 U/L (0-40); Albumin Level 4.2 g/dL (3.5-5.0); Alkaline Phosphatase 126 U/L (39-117); Anion Gap 19 (12-20); Aspartate Amino Transferase 83 U/L (5-37); Blood Urea Nitrogen 13 mg/dL (9-16); Calcium 8.8 mg/dL (8.4-10.2); Carbon Dioxide 27 mmol/L (22-29); Chloride 94 mmol/L (96-108); Creatinine Clr Calc Pharmacy 38.1; Estimated Glomerular Filt Rate 53; Potassium 4.9 mmol/L (3.3-5.1); Sodium 135 mmol/L (135-145); Total Protein 7.8 g/dL (6.5-8.0)
[2024-10-05 07:17] LABS: Troponin-I High Sensitivity 60.4 ng/L (<3.5-35.0)
[2024-10-05 07:19] LABS: B Type Natriuretic Peptide 271 pg/mL (<100)
[2024-10-05 07:23] LABS: Magnesium 2.0 mg/dL (1.6-2.6)
--- NOTE | 2024-10-05 07:23 | ECG_ITS ---
Test Reason : rythym change Blood Pressure : */* mmHG Vent. Rate : 92 BPM Atrial Rate : 92 BPM P-R Int : 216 ms QRS Dur : 150 ms QT Int : 438 ms P-R-T Axes : 102 -51 114 degrees QTcB Int : 541 ms Sinus rhythm with 1st degree A-V block Left axis deviation Left bundle branch block Abnormal ECG When compared with ECG of 05-Oct-2024 06:19, Sinus rhythm has replaced Wide QRS tachycardia Vent. rate has decreased by 58 bpm Referred By: Pepito Souza Electronically Signed By: Darin Alvarenga
--- NOTE | 2024-10-05 07:31 | PC.NURSE ---
Assumed care of 89 M who presented to the ED with a fall, witnessed, no head strike. C-collar in place. Pt c/o 5/10 back pain, no CP or SOB but SPO2 was low on RA, placed on 4L NC. A+OX4 but hard of hearing, normally ambualtes with a walker. Bilateral lower extremity swelling with more on the left. Pt was tachycardic upon arrival, has been cardioverted and is now in normal sinus.
--- NOTE | 2024-10-05 07:41 | ED.FALL ---
HPI - Fall General Chief Complaint: Fall Stated Complaint: UNWITNESSED FALL/WEAKNESS/ COPD Time Seen by Provider: 10/05/24 06:55 Source: EMS History of Present Illness HPI Narrative: This is 89 years old the patient with multiple medical problems including COPD, respiratory failure, history of multiple pneumonia history of coronary artery disease peripheral vascular disease presented to the emergency department after a fall. He was found hypoxic with a sat of 71% on room air will place on oxygen by the EMS he arrived with a wide complex tachycardia rate of about 150 MD complaint: fall Onset (ago): hour(s) (1) Fall from: standing Place fall occurred: home Loss of consciousness: none Prolonged down time: no Symptoms prior to fall: lightheadedness Related Data Home Medications ?Medication ?Instructions ?Recorded ?Confirmed atorvastatin 20 mg tablet 20 mg PO BEDTIME 02/22/20 10/05/24 albuterol sulfate 90 mcg/actuation 1 puff inhalation Q6H PRN asthma 04/24/24 10/05/24 aerosol inhaler cyanocobalamin (vitamin B-12) 1,000 mcg PO DAILY 04/24/24 10/05/24 1,000 mcg tablet amiodarone 200 mg tablet 200 mg PO DAILY 04/28/24 10/05/24 albuterol sulfate 2.5 mg/3 mL 2.5 mg inhalation Q8H PRN 06/13/24 10/05/24 (0.083 %) solution for nebulization Shortness Of Breath Or Wheezing clopidogrel 75 mg tablet 75 mg PO DAILY 10/05/24 10/05/24 ferrous sulfate 325 mg (65 mg 325 mg PO DAILY 10/05/24 10/05/24 iron) tablet furosemide 40 mg tablet 40 mg PO DAILY 10/05/24 10/05/24 metoprolol succinate 50 mg 50 mg PO DAILY 10/05/24 10/05/24 tablet,extended release 24 hr Allergies Allergy/AdvReac Type Severity Reaction Status Date / Time No Known Allergies (No Known Allergy Verified 10/05/24 06:50 Allergies*) Review of Systems Review of Systems: Yes Unobtainable due to mental condition (Distress) [facility] Past Medical History Attestation statement: The following information was validated with the patient. Medical History COPD (chronic obstructive pulmonary disease) Polycythemia vera Leukocytosis Polycythemia Fracture High cholesterol HTN (hypertension) Heart attack Surgical History S/P angiogram of extremity Hx of rotator cuff surgery H/O arthroscopy of shoulder Family History Family History Daughter Aortic aneurysm Social History Social History Household Members: Family Housing: House Do you presently have visiting nurse or other home services: Yes (comes from rehab) Patient Tobacco Use Status: Never used Tobacco Tobacco use type: Cigarette Cigarette Packs Per Day: 1 Smoked in Last 30 Days: No Second Hand Smoke Exposure: No Use of substances other than those prescribed or required for medical reasons: No Advance Directives: Yes Advance Directives on File: Yes Advance Directives Date on File: 05/01/24 service: No Physical Exam Exam: Exam: Moderate distress tachycardic Vital Signs: Vital Signs: Last Vital Signs Temp 98.1 F 10/05/24 06:49 Pulse 74 10/05/24 16:07 Resp 17 10/05/24 16:07 BP 108/70 10/05/24 16:07 Pulse Ox 95 10/05/24 16:07 O2 Del Method Nasal Cannula 10/05/24 16:07 O2 Flow Rate 2 10/05/24 16:07 Oxygen Flow Rate 4 10/05/24 06:49 BMI result Body Mass Index 24.7 Const: Other: Lethargic HEENT: Head: Yes normal to inspection General nose exam: Normal external nose present Face and sinus: Yes normal facial exam Neck: Other: C-collar is on Chest: Chest palpation & inspection: normal inspection of the chest Resp: Other: Tachypneic decreased breath sounds Cardio: Jugular venous distension: no JVD Rate: tachycardic Rhythm: regular rhythm GI: Inspection: Yes normal to inspection Palpation (GI): Soft to palpation Neuro: Other: No focal lethargic but easily arousable Cranial nerves: Yes CN's II-XII intact bilaterally Course Reevaluation(s) Reevaluation #1: cardioverted by me to sinus with 200 J sinc Time: 08:39 Reevaluation #2: CT chest noted we will start on IV antibiotic we will order blood culture and lactic Time: 09:56 Medications Administered Generic Name Dose Route Start Last Admin Trade Name Sissy PRN Reason Stop Dose Admin Amiodarone HCl 200 mg 10/05/24 11:45 10/05/24 12:01 Amiodarone Hcl 200 Mg Tablet PO 200 mg DAILY CEE Administration Sodium Chloride 3 ml 10/05/24 16:00 10/05/24 16:06 0.9 % Sodium Chloride Flush 3 Ml Syringe IVFLUSH 3 ml QSHIFT CEE Administration Discontinued Medications Generic Name Dose Route Start Last Admin Trade Name Sissy PRN Reason Stop Dose Admin Adenosine 6 mg 10/05/24 08:39 10/05/24 07:10 Adenosine 6 Mg/2 Ml Vial IVPUSH 10/05/24 08:40 6 mg ONCE ONE Administration Adenosine 12 mg 10/05/24 08:39 10/05/24 07:12 Adenosine 6 Mg/2 Ml Vial IVPUSH 10/05/24 08:40 12 mg ONCE ONE Administration Ceftriaxone Sodium 1 gm 10/05/24 09:48 10/05/24 10:13 Ceftriaxone Sodium 1 Gm Vial IVPUSH 10/05/24 09:49 1 gm ONCE ONE Administration Enoxaparin Sodium 40 mg 10/05/24 12:00 10/05/24 12:02 Enoxaparin Sodium 40 Mg/0.4 Ml Syringe SUBCUT 40 mg Q24H CEE Administration Enoxaparin Sodium 40 mg 10/05/24 13:17 10/05/24 13:31 Enoxaparin Sodium 40 Mg/0.4 Ml Syringe SUBCUT 10/05/24 13:18 40 mg ONCE ONE Administration Fentanyl 50 mcg 10/05/24 08:39 10/05/24 07:21 Fentanyl Citrate/Pf 100 Mcg/2 Ml Vial IVPUSH 10/05/24 08:40 50 mcg ONCE ONE Administration Protocol Lactated Ringer's 500 mls @ 999 mls/hr 10/05/24 06:28 10/05/24 07:33 Lr IV 10/05/24 06:58 Infused .Q31M ONE Infusion Doxycycline Hyclate 100 mg/ 250 mls @ 166.67 mls/hr 10/05/24 09:54 10/05/24 11:55 Sodium Chloride IV 10/05/24 11:23 Infused ONCE ONE Infusion Procedures Procedure Narrative Procedure Narrative: Electrical cardioversion Patient in wide complex tachycardia in distress, he was given 50 mcg of fentanyl he was cardioverted with 200 joules sync to sinus rhythm. This was an emergent cardioversion Medical Decision Making Medical Decision Making MDM Narrative: Patient presented with a wide complex tachycardia rate 150 a bedside echo shows low EF, we attempted adenosine 6 and then 12 without improvement, consideration will beta blane and calcium channel blane back however the EF is low concern about hypotension, decision made to cardiovert the patient, patient was given IV fentanyl cardioverted with 200 joules to sinus rhythm cardiology consult to fall Differential Diagnosis Differential Diagnoses: The differential diagnosis associated with the presentation includes Ventricular tachycardia/atrial flutter with a balancing Admission/Observation Consideration of admission/observation: Escalation of care including admission/observation considered Lab Data 10/05/24 06:36 10/05/24 06:36 Labs: Lab Results 10/05/24 10/05/24 10/05/24 Range/Units 06:36 06:46 06:57 WBC 16.0 H (4.8-10.8) X10*3/uL RBC 6.99 H D (4.60-5.80) X10*6/uL Hgb 15.5 D (14.0-18.0) g/dl Hct 51.7 D (42.0-52.0) % MCV 74.0 L (80.0-98.0) fL MCH 22.2 L (27.0-33.0) pg MCHC 30.0 L (31.0-36.0) g/dl RDW 24.5 H (11.0-16.0) % Plt Count 167 D (160-400) X10*3/uL MPV Not Reportable Immature Gran % (Auto) 0.4 (0.0-0.4) % Neut % (Auto) 66.1 (45-73) % Lymph % (Auto) 12.0 L (20-40) % [place] % (Auto) 6.3 (2-11) % Eos % (Auto) 14.7 H (0-4) % Baso % (Auto) 0.5 (0-2) % Lymph # (Auto) 1.9 (1.2-4.9) X10*3/uL [place] # (Auto) 1.0 (0.1-1.2) X10*3/uL Eos # (Auto) 2.4 H (0.0-0.4) X10*3/uL Baso # (Auto) 0.1 (0.0-0.2) X10*3/uL Abs Immat Gran (auto) 0.06 H (0.00-0.03) X10*3/uL Absolute Neuts (auto) 10.6 H (2.0-8.3) x10*3/uL Absolute Nucleated RBC 0.000 (0.0-0.012) X10*3/uL Nucleated RBC % (auto) 0.0 (0.0-0.2) /100WBC Smear Tech's Comments VERIFIED Hold Blue Top SEE NOTE VBG pH 7.41 (7.32-7.43) VBG pCO2 54 mmHg VBG pO2 48 mmHg VBG HCO3 34 H (22-26) mmol/L VBG O2 Saturation 75.0 % VBG Base Excess 8.2 mmol/L Sodium 135 (135-145) mmol/L Potassium 4.9 D (3.3-5.1) mmol/L Chloride 94 L (96-108) mmol/L Carbon Dioxide 27 (22-29) mmol/L Anion Gap 19 (12-20) BUN 13 (9-16) mg/dL Creatinine 1.27 (0.5-1.4) mg/dL Estim Creat Clear Calc 38.1 Estimated GFR 53 Random Glucose 86 (60-115) mg/dL Calcium 8.8 (8.4-10.2) mg/dL Magnesium 2.0 (1.6-2.6) mg/dL Total Bilirubin 0.6 (0.0-1.0) mg/dL AST 83 H (5-37) U/L ALT 29 (0-40) U/L Alkaline Phosphatase 126 H (39-117) U/L Total Creatine Kinase 97 (38-174) U/L Troponin I High Sens 60.4 H D (<3.5-35.0) ng/L B-Natriuretic Peptide 271 H (<100) pg/mL Total Protein 7.8 (6.5-8.0) g/dL Albumin 4.2 (3.5-5.0) g/dL TSH 54.02 H (0.32-4.0) uIU/mL Free T4 < 0.42 L (0.71-1.85) ng/dL Urine Color Yellow Urine Appearance Clear Urine pH 8.5 (5.0-9.0) Ur Specific [place] 1.010 (1.005-1.025) Urine Protein Negative (Neg-Trace) mg/dL Urine Glucose (UA) Negative (Negative) mg/dL Urine Ketones Negative (Negative) mg/dL Urine Blood Negative (Negative) Urine Nitrite Negative (Negative) Ur Leukocyte Esterase Trace H (Negative) Urine RBC 0-2 (0-2) /HPF Urine WBC 0-5 (0-5) /HPF Ur Squamous Epith Cells 0-2 (0-2) /HPF Urine Bacteria None Seen (None Seen) Hyaline Casts 0-2 (0-2) /LPF Influenza Type A (PCR) NEGATIVE (Negative) Influenza Type B (PCR) NEGATIVE (Negative) RSV RNA Qual (PCR) NEGATIVE (Negative) SARS-CoV-2 RNA (RT-PCR) NEGATIVE (Negative) Critical Care Time Critical Care Time Critical Care Time: Yes Total Critical Care Time: 90 Attestation: Cardioversion/multifocal pneumonia Discharge Plan Discharge Clinical Impression: Wide-complex tachycardia, Multifocal pneumonia Fall Qualifiers: Encounter type: initial encounter Qualified Code(s): W19.XXXA - Unspecified fall, initial encounter Patient Disposition: Admitted As Inpatient Interventions: Admission Worksheet (ED) Last Done: 10/05/24 11:24
--- NOTE | 2024-10-05 07:42 | PC.NURSE ---
Late Entry: Pt was tachycardic and provider at bedside decided pt needed to be cardioverted. Prior to cardioversion, pt given adenosine but it did not work. The following meds were given per MD authorization: 0710 - 6mg adenosine IV administered 0712 - 12mg adenosine IV administered. Adenosine uneffective, authorized cardioversion 0720 - Fentanyl 25mcg IV 0721 - Fentanyl 25mcg IV, HR 144 0721 - shock administered (synchronized cardioversion at 200J), following shock pt returned to normal sinus rhythm 0723 - VS HR 98, Bp 126/86 Verbal order for ECG placed, ECG completed and provided to
--- OUTSIDE RECORDS SUMMARY | 2024-10-05 07:43 | XMS_ITS | Clinical Summary ---
Author Organization [address] Address [address] [place] [address] Phone Care Team Providers Care Housekeeper Supervisor Name Role Phone Mark Chance MD Primary Care Provider [phone] Encounters Date Type Department Care Team Description 07/19/2024 Lab Requisition [facility] [address] [place] [phone] Taye Kc MD Unspecified atrial fibrillation ([facility] V24, [facility] V28); Anemia, unspecified 07/16/2024 Lab Requisition [facility] [address] [place] [phone] Taye Kc MD Pneumonia, unspecified organism; Chronic obstructive pulmonary disease, unspecified ([facility] V24, [facility] V28); Essential (primary) hypertension 07/10/2024 Lab Requisition [facility] [address] [place] [phone] aTye Kc MD Unspecified atrial fibrillation ([facility] V24, [facility] V28); Anemia, unspecified 07/06/2024 Lab Requisition [facility] [address] [place] [phone] Taye Kc MD Chronic obstructive pulmonary disease, unspecified (CMS/HCC V24, CMS/HCC V28) 07/05/2024 Lab Requisition [facility] [address] [place] [phone] Taye Kc MD Unspecified atrial fibrillation ([facility] V24, [facility] V28); Anemia, unspecified 07/02/2024 Lab Requisition [facility] [address] [facility] [place] [phone] Taye Kc MD Unspecified atrial fibrillation (CMS/HCC V24, CMS/HCC V28); Anemia, unspecified from Last 3 Months [...] 2 - PCV) 11/25/2015 11/24/2014 COVID-19 Vaccine ( season) 2023 05/21/2021, 04/23/2021 Depression Screening 02/25/2024 Falls Risk Assessment 04/28/2024 Medicare Annual Wellness [...] pulmonary disease, unspecified (CMS/HCC V24, CMS/HCC V28) LIPID PANEL WITH REFLEX TO DIRECT LDL Routine 04/28/2024 5:40 AM EST Pneumonia, unspecified organism Chronic obstructive pulmonary disease, unspecified (CMS/HCC) Hyperlipidemia, unspecified Vitamin D deficiency, unspecified Vitamin B12 deficiency anemia, unspecified from Last 3 Months or Most Recently Relevant to Health Maintenance Results * (ABNORMAL) Complete blood count (07/16/2024 9:50 AM EDT) Only the most recent of3 resultswithin the time period is included. WBC 15.5(H) 4.8 - 10.8 K/[facility] LAB HEMETOLOGY METHOD 07/16/2024 11:20 AM EDT [facility] RBC 4.90 4.50 - 5.50 M/mcL LAB HEMETOLOGY METHOD 07/16/2024 11:20 AM [facility] Hemoglobin 10.4(L) 13.5 - 17.5 g/dL LAB HEMETOLOGY METHOD 07/16/2024 11:20 AM [facility] Hematocrit 37.6(L) 42.0 - 54.0 % LAB HEMETOLOGY METHOD 07/16/2024 11:20 AM [facility] MCV 76.9(L) 79.0 - 98.0 FL LAB HEMETOLOGY METHOD 07/16/2024 11:20 AM [facility] MCH 21.3(L) 27.0 - 32.0 pcg LAB HEMETOLOGY METHOD 07/16/2024 11:20 AM [facility] MCHC 27.7(L) 32.0 - 37.0 g/dL LAB HEMETOLOGY METHOD 07/16/2024 11:20 AM [facility] RDW 23.9(H) 11.0 - 15.0 % LAB HEMETOLOGY METHOD 07/16/2024 11:20 AM [facility] Platelets 200 130 - 400 K/mcL LAB HEMETOLOGY METHOD 07/16/2024 11:20 AM [facility] MPV LAB HEMETOLOGY METHOD 07/16/2024 11:20 AM [facility] Comment:Not Measured NRBC 0.1 <1.0 % LAB HEMETOLOGY METHOD 07/16/2024 11:20 AM [facility] NRBC Absolute 0.02 <0.10 K/mcL LAB HEMETOLOGY METHOD 07/16/2024 11:20 AM [facility] Blood Venous blood specimen / Unknown Venipuncture / Unknown 07/16/2024 9:50 AM EDT 07/16/2024 10:19 AM EDT us Taye Kc MD LAB BLOOD ORDERABLES Final R esult [facility] [address] [place] [address], [place] [phone] * (ABNORMAL) Basic metabolic panel (07/16/2024 9:50 AM EDT) Only the most recent of2 resultswithin the time period is included. Pathologist [facility] Sodium 137 133 - 145 mmol/L LAB CHEMISTRY METHOD [facility] Potassium 4.0 3.5 - 5.5 mmol/L LAB CHEMISTRY METHOD 07/16/2024 1:09 PM [facility] Chloride 103 96 - 110 mmol/L LAB CHEMISTRY METHOD 07/16/2024 1:09 PM [facility] CO2 24 21 - 32 mmol/L LAB CHEMISTRY METHOD 07/16/2024 1:09 PM [facility] Anion Gap 10 3 - 11 LAB CHEMISTRY METHOD 07/16/2024 1:09 PM [facility] Glucose 114(H) 70 - 100 mg/dL LAB CHEMISTRY METHOD 07/16/2024 1:09 PM [facility] BUN 20 5 - 25 mg/dL LAB CHEMISTRY METHOD 07/16/2024 1:09 PM [facility] Creatinine 0.89 0.70 - 1.30 mg/dL LAB CHEMISTRY METHOD 07/16/2024 1:09 PM [facility] eGFR 82 >=60 mL/min/1. 73m2 LAB CHEMISTRY METHOD 07/16/2024 1:09 PM [facility] Comment:Calculation based on the Chronic Kidney Disease Epidemiology Collaboration (CKD-EPI) equation refit without adjustment for race. BUN/Creatinine Ratio 22.5 LAB CHEMISTRY METHOD 07/16/2024 1:09 PM EDT [facility] Calcium 6.5(L) 8.5 - 10.5 mg/dL LAB CHEMISTRY METHOD 07/16/2024 1:09 PM EDT [facility] Blood Venous blood specimen / Unknown Venipuncture / Unknown 07/16/2024 9:50 AM EDT 07/16/2024 10:19 AM EDT Taye Kc MD LAB BLOOD ORDERABLES Final R esult [facility] [address] [place] [address], [place] [phone] * (ABNORMAL) Lipid panel with reflex to direct LDL (04/28/2024 5:40 AM EST) Cholesterol 149 0 - 200 mg/dL LAB CHEMISTRY METHOD 04/28/2024 2:57 PM [facility] Triglycerides 174(H) 0 - 150 mg/dL LAB CHEMISTRY METHOD 04/28/2024 2:57 PM EST [facility] HDL 62 >=40 mg/dL LAB CHEMISTRY METHOD 04/28/2024 2:57 PM [facility] LDL Calculated 52 0 - 100 mg/dL LAB CHEMISTRY METHOD 04/28/2024 2:57 PM EST [facility] VLDL Cholesterol Leroy 34.8 mg/dL LAB CHEMISTRY METHOD 04/28/2024 2:57 PM EST [facility] Non HDL Chol. (LDL+VLDL) 87 <145 mg/dL LAB CHEMISTRY METHOD 04/28/2024 2:57 PM [facility] Chol/HDL Ratio 2.4 0.0 - 4.4 LAB CHEMISTRY METHOD 04/28/2024 2:57 PM [facility] Blood Venous blood specimen / Unknown Venipuncture / Unknown 04/28/2024 5:40 AM EST 04/28/2024 9:54 AM EST Mark Chance MD LAB BLOOD ORDERABLES Final Resul t [facility] [address] [place] [address], from Last 3 Months or Most Recently Relevant to Health Maintenance Insurance MEDICARE [facility] [employer] [facility] Care Teams Housekeeper Supervisor Relationship Specialty Start Date End Date Mark Chance MD [address] [place] [id number] [id number] [place] [address] PCP - General Geriatric Medicine 04/28/24
--- OUTSIDE RECORDS SUMMARY | 2024-10-05 07:43 | XMS_ITS | Encounter Summary ---
Author Organization [facility] Address [address] [place] [address] Care Team Providers Care Invas Tech Name Role Phone Stephanie Gillespie Primary Care Provider [phone] Encounter Details Date Type Department Care Team (Late st Contact Info) Description 04/28/2020 Orders Only [facility] 2 Rad Act 1 [address] [place] [address] Hernan Keen MD [address] [place] [address] Social History Tobacco Use Types Packs/Day Years [...] on filedocumented in this encounter Care Teams Invas Tech Relationship Specialty Start Date End Date Stephanie Gillespie [address] [address] PCP - General Internal Medicine 04/17/20 documented as of this encounter
[2024-10-05 07:44] LABS: Resp Syncy Virus RNA Qual PCR NEGATIVE (Negative); SARS COV2 PCR INHOUSE NEGATIVE (Negative)
--- NOTE | 2024-10-05 07:47 | PC.NURSE ---
Patient SPO2 dropped, pt does have COPD but SPO2 was 86. Pt increased on O2 from 4L to 6L and now satting around 92-93% on 6L
[2024-10-05 08:18] LABS: Free T4 (Free Thyroxine) < 0.42 ng/dL (0.71-1.85)
--- NOTE | 2024-10-05 09:06 | PC.NURSE ---
patient resting quietly in room, remains in sinus rhythm. oxygen titrated to 2L nasal cannula at 97%
--- NOTE | 2024-10-05 09:25 | PM.CNCAR ---
History of Present Illness History of Present Illness Date of Service: 10/05/24 Requesting physician: Pepito Souza Chief complaint: UNWITNESSED FALL/WEAKNESS/COPD Narrative: 89-year-old gentleman with advanced COPD, left subclavian artery stenosis, history of supraventricular tachycardia and pleural effusions diagnosed in April 2024 presenting with fall. He was noticed to be in wide complex tachycardia at 150 beats per minute. He was given adenosine 6 mg and 12 mg but he did not convert to sinus rhythm. There are no strips recorded but as per discussion with emergency department the rhythm did not slow down after adenosine. His blood pressure was 110 and eventually he was cardioverted by the emergency physician. He is back in sinus rhythm at this point. He has a known left bundle-branch block. He has a neck collar in place and is about to get scan to rule out any fractures. He is denying any other complaints currently. Reviewing his records he has been on amiodarone. In January 2024 he presented with episode of hypotension and was in supraventricular tachycardia. He was started on amiodarone at that stage. [facility] Past Medical History Medical History COPD (chronic obstructive pulmonary disease) Polycythemia vera Leukocytosis Polycythemia Fracture High cholesterol HTN (hypertension) Heart attack Family History Family History Daughter Aortic aneurysm Surgical History Surgical History S/P angiogram of extremity Hx of rotator cuff surgery H/O arthroscopy of shoulder Social History Social History Household Members: Family Housing: House Do you presently have visiting nurse or other home services: Yes (comes from rehab) Patient Tobacco Use Status: Never used Tobacco Tobacco use type: Cigarette Cigarette Packs Per Day: 1 Smoked in Last 30 Days: No Second Hand Smoke Exposure: No Use of substances other than those prescribed or required for medical reasons: No Advance Directives: Yes Advance Directives on File: Yes Advance Directives Date on File: 05/01/24 service: No Meds Allergies Allergy/AdvReac Type Severity Reaction Status Date / Time No Known Allergies (No Known Allergy Verified 10/05/24 06:50 Allergies*) Home Medications ?Medication ?Instructions ?Recorded ?Confirmed ?Last Taken ?Type atorvastatin 20 mg tablet 20 mg PO BEDTIME 02/22/20 06/13/24 06/12/24 History fluticasone fur. 200 mcg-umeclid 1 inh inhalation DAILY 02/13/24 06/13/24 06/12/24 History 62.5 mcg-vilant 25 mcg inhalat.powder (Trelegy Ellipta) fjdaktjpxawg-dlumymjk-zaagrn tablet 1 tab PO DAILY 02/13/24 06/13/24 06/12/24 History albuterol sulfate 90 mcg/actuation 1 puff inhalation Q6H PRN asthma 04/24/24 06/13/24 Unknown History aerosol inhaler cyanocobalamin (vitamin B-12) 1,000 mcg PO DAILY 04/24/24 06/13/24 06/12/24 History 1,000 mcg tablet acetaminophen 325 mg tablet 650 mg PO Q6H PRN pain or fever 04/28/24 06/13/24 Unknown History amiodarone 200 mg tablet 200 mg PO DAILY 04/28/24 06/13/24 06/12/24 History bisacodyl 10 mg rectal suppository 10 mg RI BEDTIME PRN Constipation 04/28/24 06/13/24 Unknown History magnesium hydroxide 400 mg/5 mL 30 ml PO Q24H PRN Constipation 04/28/24 06/13/24 Unknown History oral suspension (Milk of Magnesia) sodium phosphates 19 gram-7 118 ml RI DAILY PRN Constipation 04/28/24 06/13/24 Unknown History gram/118 mL enema (Fleet Enema) ipratropium 0.5 mg-albuterol 3 mg 3 ml inhalation Q4H PRN Wheezing 05/24/24 06/13/24 Unknown History (2.5 mg base)/3 mL nebulization soln albuterol sulfate 2.5 mg/3 mL 2.5 mg inhalation Q8H PRN 06/13/24 06/13/24 Unknown History (0.083 %) solution for nebulization Shortness Of Breath Or Wheezing furosemide 20 mg tablet 20 mg PO DAILY edema/weight gain 06/13/24 06/13/24 06/12/24 History Physical Exam Vital Signs: Vital Signs: Last Vital Signs Temp 98.1 F 08/12/25 06:49 Pulse 89 10/05/24 08:25 Resp 24 H 10/05/24 08:25 BP 105/68 10/05/24 08:25 Pulse Ox 93 10/05/24 08:25 O2 Del Method Nasal Cannula 10/05/24 08:25 O2 Flow Rate 4 10/05/24 08:25 Oxygen Flow Rate 4 10/05/24 06:49 BMI result Body Mass Index 24.7 GENERAL APPEARANCE: Ill-appearing. Neck collar in place currently. NECK: no carotid bruit, no jugular venous distention. SKIN: no suspicious lesions, warm and dry. HEART: no murmurs, regular rate and rhythm. LUNGS: Crackles at bases. ABDOMEN: soft, nontender. EXTREMITIES: no edema. PERIPHERAL PULSES: equal. Objective Labs and Meds 10/05/24 06:36 10/05/24 06:36 Lab results: Laboratory Results - last 24 hr 10/05/24 10/05/24 10/05/24 06:36 06:46 06:57 WBC 16.0 H RBC 6.99 H D Hgb 15.5 D Hct 51.7 D MCV 74.0 L MCH 22.2 L MCHC 30.0 L RDW 24.5 H Plt Count 167 D MPV Not Reportable Immature Gran % (Auto) 0.4 Neut % (Auto) 66.1 Lymph % (Auto) 12.0 L [place] % (Auto) 6.3 Eos % (Auto) 14.7 H Baso % (Auto) 0.5 Lymph # (Auto) 1.9 [place] # (Auto) 1.0 Eos # (Auto) 2.4 H Baso # (Auto) 0.1 Abs Immat Gran (auto) 0.06 H Absolute Neuts (auto) 10.6 H Absolute Nucleated RBC 0.000 Nucleated RBC % (auto) 0.0 Smear Tech's Comments VERIFIED Hold Blue Top SEE NOTE VBG pH 7.41 VBG pCO2 54 VBG pO2 48 VBG HCO3 34 H VBG O2 Saturation 75.0 VBG Base Excess 8.2 Sodium 135 Potassium 4.9 D Chloride 94 L Carbon Dioxide 27 Anion Gap 19 BUN 13 Creatinine 1.27 Estim Creat Clear Calc 38.1 Estimated GFR 53 Random Glucose 86 Calcium 8.8 Magnesium 2.0 Total Bilirubin 0.6 AST 83 H ALT 29 Alkaline Phosphatase 126 H Total Creatine Kinase 97 Troponin I High Sens 60.4 H D B-Natriuretic Peptide 271 H Total Protein 7.8 Albumin 4.2 TSH 54.02 H Free T4 < 0.42 L Urine Color Yellow Urine Appearance Clear Urine pH 8.5 Ur Specific [place] 1.010 Urine Protein Negative Urine Glucose (UA) Negative Urine Ketones Negative Urine Blood Negative Urine Nitrite Negative Ur Leukocyte Esterase Trace H Urine RBC 0-2 Urine WBC 0-5 Ur Squamous Epith Cells 0-2 Urine Bacteria None Seen Hyaline Casts 0-2 Influenza Type A (PCR) NEGATIVE Influenza Type B (PCR) NEGATIVE RSV RNA Qual (PCR) NEGATIVE SARS-CoV-2 RNA (RT-PCR) NEGATIVE Imaging Radiologist's impression: Impressions Chest X-Ray 10/05/24 07:15 IMPRESSION: No acute cardiopulmonary abnormality. Electronically signed by: Aris Gonzalez MD 10/05/2024 08:40 AM EDT RP Assessment and Plan (1) Wide-complex tachycardia: Status: Acute Plan [age] year gentleman presenting with fall and wide complex tachycardia. He has known left bundle-branch block in the past. He also has history of supraventricular tachycardia in January when he was cardioverted. Differentials include SVT with aberrancy versus atrial flutter. His heart rate was at 150 beats per minute and I think atrial flutter is a possibility. I do not think this was ventricular tachycardia. He has been cardioverted by the ER physician at this point. He is in sinus rhythm. Agree with continuing amiodarone. He has not been on anticoagulation previously. He is getting scanned to assess his head and neck given the fall. Currently I am unclear about anticoagulation because I am not sure this is truly atrial flutter or not. We will follow along with you. Echocardiography to assess LV function. Thank you for allowing me to participate in the care of your patient. Please feel free to contact me if you have any questions. Procedures Date of Service Date of Service: 10/05/24
--- NOTE | 2024-10-05 10:11 | PM.IMHP ---
History of Present Illness Date of Service: 10/05/24 Chief Complaint: Multifocal PNA, Tachycardia 89-year-old male with a past medical history of advanced COPD, left subclavian artery stenosis, history of SVT, LBBB, CAD, PVD history of pleural effusions diagnosed in April 2024 polycythemia vera, hypertension, high cholesterol, history of [place] in 2017 presented to the ED after a fall at home. He was found to be in a wide complex tachycardia. He received adenosine 6 and 12 mg but did not convert to sinus rhythm. He was cardio converted in the ED. Patient initially hypoxic to 71% initially requiring 6L/M. Chest x-ray revealed multifocal pneumonia likely due to aspiration. He was given ceftriaxone and doxycycline. Head CT was negative, no acute fractures, no acute intracranial hemorrhage. Cervical spine CT negative for any acute fracture or trauma related listhesis. Chest x-ray no acute cardiopulmonary abnormality. Initial troponin elevated. BNP slightly elevated 271. [facility] Medical History COPD (chronic obstructive pulmonary disease) Polycythemia vera Leukocytosis Polycythemia Fracture High cholesterol HTN (hypertension) Heart attack Family History Daughter Aortic aneurysm Surgical History S/P angiogram of extremity Hx of rotator cuff surgery H/O arthroscopy of shoulder Social History Household Members: Family Housing: House Do you presently have visiting nurse or other home services: Yes (PT and visiting nurse) Patient Tobacco Use Status: Former Tobacco user Tobacco use type: Cigarette Cigarette Packs Per Day: 1 Smoked in Last 30 Days: No Second Hand Smoke Exposure: No Use of substances other than those prescribed or required for medical reasons: No Currently Displaying Signs/Symptoms of Drug Intoxication Withdrawal: No Have you been hit, kicked, punched, or otherwise hurt by someone within the past year? If so, by whom?: No Do you feel safe in your current relationship?: Yes Is there a partner from a previous relationship who is making you feel unsafe now?: No Are you made to feel afraid or neglected: No Advance Directives: Yes Advance Directives on File: Yes Advance Directives Date on File: 05/01/24 Recently lost weight without trying: No Nutrition Risks: On aspiration precautions service: No Meds Allergies Allergy/AdvReac Type Severity Reaction Status Date / Time No Known Allergies (No Known Allergy Verified 10/05/24 06:50 Allergies*) Active Medications: Current Medications Doxycycline Hyclate 100 mg/ (Sodium Chloride) 250 mls @ 166.67 mls/hr IV ONCE ONE Stop: 10/05/24 11:23 Home Medications ?Medication ?Instructions ?Recorded ?Confirmed ?Last Taken ?Type atorvastatin 20 mg tablet 20 mg PO BEDTIME 02/22/20 10/05/24 10/04/24 History albuterol sulfate 90 mcg/actuation 1 puff inhalation Q6H PRN asthma 04/24/24 10/05/24 Unknown History aerosol inhaler cyanocobalamin (vitamin B-12) 1,000 mcg PO DAILY 04/24/24 10/05/24 10/04/24 History 1,000 mcg tablet amiodarone 200 mg tablet 200 mg PO DAILY 04/28/24 10/05/24 10/04/24 History albuterol sulfate 2.5 mg/3 mL 2.5 mg inhalation Q8H PRN 06/13/24 10/05/24 Unknown History (0.083 %) solution for nebulization Shortness Of Breath Or Wheezing clopidogrel 75 mg tablet 75 mg PO DAILY 10/05/24 10/05/24 10/04/24 History ferrous sulfate 325 mg (65 mg 325 mg PO DAILY 10/05/24 10/05/24 10/04/24 History iron) tablet furosemide 40 mg tablet 40 mg PO DAILY 10/05/24 10/05/24 10/04/24 History metoprolol succinate 50 mg 50 mg PO DAILY 10/05/24 10/05/24 10/04/24 History tablet,extended release 24 hr Physical Exam Vital Signs and Narrative: Vital Signs: Last Vital Signs Temp 98.1 F 10/05/24 06:49 Pulse 89 10/05/24 08:25 Resp 24 H 10/05/24 08:25 BP 105/68 10/05/24 08:25 Pulse Ox 93 10/05/24 08:25 O2 Del Method Nasal Cannula 10/05/24 08:25 O2 Flow Rate 4 10/05/24 08:25 Oxygen Flow Rate 4 10/05/24 06:49 BMI result Body Mass Index 24.7 CONST: Alert and oriented, in NAD. Slightly unkempt HEENT: Normocephalic, atraumatic, MMM, Eyes clear, Neck supple RESP: Lungswith Rhonchi throughout, RRR even and regular HEART:,RRR, S1, S2. + edema to left ankle and foot. GI:Abdomen Soft NT, ND. + BS times four :Deferred SKIN: Warm dry and intact, no visible lesions or rashes. Left food slightly edematous and warm to touch. NEURO:CN II-XII Intact bilaterally, Sensation intact. Speech clear PSYCH: Normal affect Results Labs 10/06/24 04:58 10/06/24 04:58 Labs: Laboratory Results - last 24 hr 10/05/24 10/05/24 10/05/24 06:36 06:46 06:57 MCV 74.0 L MCH 22.2 L MCHC 30.0 L RDW 24.5 H Plt Count 167 D MPV Not Reportable Immature Gran % (Auto) 0.4 Neut % (Auto) 66.1 Lymph % (Auto) 12.0 L [place] % (Auto) 6.3 Eos % (Auto) 14.7 H Baso % (Auto) 0.5 Lymph # (Auto) 1.9 [place] # (Auto) 1.0 Eos # (Auto) 2.4 H Baso # (Auto) 0.1 Abs Immat Gran (auto) 0.06 H Absolute Neuts (auto) 10.6 H Absolute Nucleated RBC 0.000 Nucleated RBC % (auto) 0.0 Smear Tech's Comments VERIFIED Hold Blue Top SEE NOTE VBG pH 7.41 VBG pCO2 54 VBG pO2 48 VBG HCO3 34 H VBG O2 Saturation 75.0 VBG Base Excess 8.2 Anion Gap 19 Estim Creat Clear Calc 38.1 Estimated GFR 53 Random Glucose 86 Calcium 8.8 Magnesium 2.0 Total Bilirubin 0.6 AST 83 H ALT 29 Alkaline Phosphatase 126 H Total Creatine Kinase 97 B-Natriuretic Peptide 271 H Total Protein 7.8 Albumin 4.2 TSH 54.02 H Free T4 < 0.42 L Urine Color Yellow Urine Appearance Clear Urine pH 8.5 Ur Specific [place] 1.010 Urine Protein Negative Urine Glucose (UA) Negative Urine Ketones Negative Urine Blood Negative Urine Nitrite Negative Ur Leukocyte Esterase Trace H Urine RBC 0-2 Urine WBC 0-5 Ur Squamous Epith Cells 0-2 Urine Bacteria None Seen Hyaline Casts 0-2 Influenza Type A (PCR) NEGATIVE Influenza Type B (PCR) NEGATIVE RSV RNA Qual (PCR) NEGATIVE SARS-CoV-2 RNA (RT-PCR) NEGATIVE Imaging Radiologist's Impressions: Impressions Chest X-Ray 10/05/24 07:15 IMPRESSION: No acute cardiopulmonary abnormality. Electronically signed by: Aris Gonzalez MD 10/05/2024 08:40 AM EDT RP Cervical Spine CT 10/05/24 07:47 IMPRESSION: No acute fracture or trauma-related listhesis. Multilevel spondylosis. Atherosclerosis disease. Osteopenia versus osteoporosis. Fleischner guidelines were followed. Electronically signed by: Kj Rivera MD 10/05/2024 09:30 AM EDT RP Chest CT 10/05/24 07:47 IMPRESSION: Multifocal pneumonia likely related to aspiration. Coronary artery disease and atherosclerosis disease. Subacute to old compression fractures T5 T8 and to a lesser extent T10. Fleischner guidelines were followed. Electronically signed by: Kj Rivera MD 10/05/2024 09:40 AM EDT RP Head CT 10/05/24 08:47 IMPRESSION: No acute fracture, bony calvarium. No acute intracranial hemorrhage. Small vessel occlusive disease. Global cerebral atrophy. Atherosclerosis disease, intracranial. Chronic polypoid paranasal sinus disease. Electronically signed by: Kj Rivera MD 10/05/2024 09:24 AM EDT RP Assessment and Plan (1) NSTEMI (non-ST elevated myocardial infarction): Status: Acute Plan 89-year-old male with a medical history including COPD, left subclavian artery stenosis, history of SVT, LBBB, CAD, PVD history of pleural effusions diagnosed in April 2024 polycythemia vera, hypertension, high cholesterol, history of [place] admitted after a fall found to have multinodular PNA and Wide QRS complex requiring cardioversion in ED. he is admitted for treatment of hypoxic respiratory failure, PNA and NSTEMI. Acute on chronic Hypoxic respiratory failure secondary to Multinodular pneumonia Initially patient was in 71%, leukocytosis of 16.0, patient found to have a wide QRS complex. Patient met the criteria for sepsis, lactic acid within normal limits 1.8. We will continue ceftriaxone and doxycycline IV Speech therapy consult- Modified diet. Aspiration precautions. Oxygen to maintain Sats greater than 90%- Xopenex PRN NSTEMI S/P Cardioversion after he presented in a wide complex QRS. Received 2 doses of adenosine without significant change, Cardioverted in ED. Initially on admission 60.4. Elevated to 284.0. Repeat in 2 hours ECHO with wall motion abnormality. Patient with known history of coronary artery disease followed by [facility] outpatient. Cardiology following, recommend therapuetic lovenox for 48 hours No ischemic changes, Patient is asymptomatic at time of exam. Resume Lasix and Metoprolol as Blood pressure improves. Start ASA, resume plavix. Continue Amiodarone Telemetry monitoring Hypothyroidism Patient was admitted back in May, he had elevated TSH at that time with a low free T4, he was started on Synthroid 75 mcg was recommendations to check his TSH in 6 weeks. On admission this time his TSH noted to be 54.02 with an undetectable Free T4. Prescription not filled, therefore patient was not taking. Discussed case with Dr. Rincon who recommended starting levothyroxine at a low dose of 12.5 mcg daily in a.m., if patient tolerates this dose may increase to 25 mcg daily in a.m. and 3-4 days. Outpatient management includes checking TSH and free T4 in 4 weeks and gradually increasing the levothyroxine at 25 mcg doses until patient's TSH normalizes. COPD Continue Trelegy Unwitnessed fall Patient's head CT was negative for any acute intracranial pathology, CT spine negative. HLD Resume Atorvastatin Polycythemia vera Continue to follow up outpatient Hematology PVD/CAD Redness and warmth to left foot. At baseline Continue Statin, ASA and Plavix DVT prophylaxis: On Therapeutic Lovenox Code Status: DNR/DNI Quality Stroke Does the patient have a stroke diagnosis?: No VTE Prior VTE?: No VTE Risk Level:: Medical - moderate - high VTE Device Contraindication: Treatment Not Indicated VTE Drug Contraindication: N/A - Med Ordered
--- NOTE | 2024-10-05 11:34 | PHA.MEDREC ---
Addendum entered by Josie Crow RPh 10/05/24 12:23: reviewed by carin Original Note: Pharmacy Consult ? Medication Reconciliation Pharmacy has completed the medication reconciliation. Spoke with pt son at bedside (Ed) and he confirmed the pt medications and that he helps gives the pt his medicine daily.
[2024-10-05 12:49] LABS: Troponin-I High Sensitivity 284.0 ng/L (<3.5-35.0)
--- NOTE | 2024-10-05 12:49 | PC.NURSE ---
Critical Trop of 284 reported to Gladys Davis DNP
--- NOTE | 2024-10-05 13:04 | PC.NURSE ---
pt now on room air, satting well, denies SOB. RR even and unlabored, calm, cooperative.
[2024-10-05 15:08] LABS: Troponin-I High Sensitivity 233.4 ng/L (<3.5-35.0)
--- NOTE | 2024-10-05 16:00 | MHC.SL.SWA ---
Speech Pathologist Impression: Risk of Aspiration, Oropharyngeal Dysphagia Dysphasia Diet Status: DOWNGRADE TO NDD1 Liquid Consistency and Strategies for Safe Swallow: Liquid Intake Recommendation: Thin Solid Food Consistency: Dietary Recommendations: Pureed (NDD1) Additional Modifications to Solid Foods: Slow pacing, reduce bolus size Oral Medication Intake: Crushed with Puree Please contact the pharmacy regarding appropriate crushable or liquid drug formulations that are available whenever modified delivery is recommended. Supervision While Eating and Drinking for Safe Swallow: Direct Supervision (1:1) Recommendation for Speech: Inpatient Speech Therapy Comment: Direct supervision & aspiration precautions Frequency/Duration: M-F Date Range for Service Req: Timeline to reassess: Clamp Truck Driver Clinican/Clinical Fellow: No Supervisory Statement: I have reviewed and agree with the student/clinical fellow's documentation: N/A Speech Language Pathologist: Danielle Beverly M.A., CCC-RN MEDICARE
[2024-10-05] MEDS: 0.9 % Sodium Chloride Flush 3 ML SYRINGE IVFLUSH (16:06)
[2024-10-06] VITALS (10 sets, daily range): BP systolic 106–140; BP diastolic 65–83; PULSE 62–80; RESP 12–20; TEMP 36.1–36.8; O2SAT 96–99; BMI 24.1
[2024-10-06 05:04] LABS: MANUAL DIFF FLAG NO
[2024-10-06 05:10] LABS: Hematocrit 44.1 % (42.0-52.0); Hemoglobin 13.7 g/dl (14.0-18.0); Imm Gran Abs Auto 0.12 X10*3/uL (0.00-0.03); Imm Gran Pct Auto 0.7 % (0.0-0.4); Lymphocytes Absolute Auto 1.9 X10*3/uL (1.2-4.9); Mean Corpuscular HGB Conc 31.1 g/dl (31.0-36.0); Mean Corpuscular Hemoglobin 22.6 pg (27.0-33.0); Mean Corpuscular Volume 72.8 fL (80.0-98.0); NRBC Abs Auto 0.000 X10*3/uL (0.0-0.012); NRBC Pct Auto 0.0 /100WBC (0.0-0.2); Platelet Count 156 X10*3/uL (160-400); Red Blood Count 6.06 X10*6/uL (4.60-5.80); White Blood Count 17.1 X10*3/uL (4.8-10.8)
[2024-10-06 05:27] LABS: Alanine Aminotransferase 23 U/L (0-40); Albumin Level 3.1 g/dL (3.5-5.0); Alkaline Phosphatase 86 U/L (39-117); Anion Gap 13 (12-20); Aspartate Amino Transferase 49 U/L (5-37); Blood Urea Nitrogen 11 mg/dL (9-16); Calcium 7.9 mg/dL (8.4-10.2); Carbon Dioxide 26 mmol/L (22-29); Chloride 99 mmol/L (96-108); Creatinine Clr Calc Pharmacy 49.4; Estimated Glomerular Filt Rate > 60; Magnesium 1.9 mg/dL (1.6-2.6); Potassium 3.7 mmol/L (3.3-5.1); Sodium 134 mmol/L (135-145); Total Protein 5.8 g/dL (6.5-8.0)
[2024-10-06] MEDS: Aspirin Enteric Coated 81 MG TABLET.DR PO (08:42)
[2024-10-06] MEDS: Ferrous Sulfate 324 MG TABLET.DR PO (08:42)
--- NOTE | 2024-10-06 10:05 | P.PNIM_ITS ---
Subjective Subjective Date of Service: 10/06/24 <Gladys Davis DNP - Last Filed: 10/06/24 11:44> 10/06/24 <Van Torres MD - Last Filed: 10/06/24 12:31> Interval History: Patient seen and examined, no overnight events on monitor, remains in sinus rhythm with first-degree AV block. Continues with wheezing bilateral lung chavez, working with [employer]. On exam he is reporting pain to his left lower extremity, pain on exam. He denies any shortness of breath, chest pain, dizziness lightheadedness or any other concerning symptoms. Continues on oxygen at 2 L a minute. He is afebrile. <Gladys Davis DNP - Last Filed: 10/06/24 11:44> Review of Systems Denies any shortness of breath, chest pain, dizziness, lightheadedness, abdominal pain or discomfort, nausea vomiting or diarrhea <Gladys Davis DNP - Last Filed: 10/06/24 11:44> Physical Exam 2 Exam: Exam: Alert and oriented X3, able to give good history. Neuro: CN II-X11 intact, no deficits, visual acuity intact ENT: [place], lips moist Cardiac: S1 S2 RRR, No ectopy Pulmonary: lungs with wheezing throughout, No increased WOB. Is on oxygen 2L/m via nasal cannula Abdominal: BS active in all 4 quadrants, no guarding or tenderness MSK: Strength 5/5 upper and lower extremities : Deferred Extremities: Positive nonpitting edema to left lower extremity, trace edema to right Psych: Mood stable, pleasant and cooperative. Skin: Warm and dry <Galdys Davis DNP - Last Filed: 10/06/24 11:44> Vital Signs: Vital Signs: Last Vital Signs Temp 97.4 F 10/06/24 08:00 Pulse 70 10/06/24 08:00 Resp 18 10/06/24 08:00 BP 109/65 10/06/24 08:00 Pulse Ox 96 10/06/24 08:00 O2 Del Method Nasal Cannula 10/06/24 08:00 O2 Flow Rate 2 10/06/24 08:00 Oxygen Flow Rate 4 10/05/24 06:49 BMI result Body Mass Index 24.1 <Gladys Davis DNP - Last Filed: 10/06/24 11:44> Objective Data Active Medications Acetaminophen (Acetaminophen 325 Mg Tablet) 650 mg PO Q6H PRN PRN Reason: Pain, Mild 1-3,fever,headache Last Admin: 10/06/24 08:42 Dose: 650 mg Documented By: NEETU Amiodarone HCl (Amiodarone Hcl 200 Mg Tablet) 200 mg PO DAILY COUNTS INCLUDE 234 BEDS AT THE [facility] Last Admin: 10/06/24 08:42 Dose: 200 mg Documented By: NEETU Aspirin (Aspirin Enteric Coated 81 Mg Tablet.) 81 mg PO DAILY COUNTS INCLUDE 234 BEDS AT THE [facility] Last Admin: 10/06/24 08:42 Dose: 81 mg Documented By: NEETU Atorvastatin Calcium (Atorvastatin Calcium 20 Mg Tablet) 20 mg PO BEDTIME COUNTS INCLUDE 234 BEDS AT THE [facility] Last Admin: 10/05/24 20:59 Dose: 20 mg Documented By: NAVJOT Calcium Carbonate (Calcium Carbonate 750 Mg Tab.Chew) 750 mg PO Q4H PRN PRN Reason: Heartburn Ceftriaxone Sodium (Ceftriaxone Sodium 1 Gm Vial) 1 gm IVPUSH Q24H COUNTS INCLUDE 234 BEDS AT THE [facility] Clopidogrel Bisulfate (Clopidogrel Bisulfate 75 Mg Tablet) 75 mg PO DAILY COUNTS INCLUDE 234 BEDS AT THE [facility] Last Admin: 10/06/24 08:42 Dose: 75 mg Documented By: NEETU Cyanocobalamin (Cyanocobalamin (Vitamin B-12) 1,000 Mcg Tablet) 1,000 mcg PO DAILY COUNTS INCLUDE 234 BEDS AT THE [facility] Last Admin: 10/06/24 08:42 Dose: 1,000 mcg Documented By: NEETU Enoxaparin Sodium (Enoxaparin Sodium 80 Mg/0.8 Ml Syringe) 75 mg SUBCUT Q12H COUNTS INCLUDE 234 BEDS AT THE [facility] Stop: 10/07/24 01:01 Last Admin: 10/06/24 01:20 Dose: 75 mg Documented By: NAVJOT Ferrous Sulfate (Ferrous Sulfate 324 Mg Tablet.) 324 mg PO DAILY COUNTS INCLUDE 234 BEDS AT THE [facility] Last Admin: 10/06/24 08:42 Dose: 324 mg Documented By: NEETU Fluticasone/Umeclidinium/Vilanterol (Fluticasone/Umeclidinium/Vilanterol 200/62.5/25 Blst.W.Dev) 1 puff INHALE RDAILY COUNTS INCLUDE 234 BEDS AT THE [facility] Last Admin: 10/06/24 08:24 Dose: Not Given Documented By: COLTON Non-Admin Reason: pharmacy called for med Doxycycline Hyclate 100 mg/ (Sodium Chloride) 250 mls @ 166.67 mls/hr IV Q12H COUNTS INCLUDE 234 BEDS AT THE [facility] Last Infusion: 10/05/24 23:50 Dose: Infused Documented By: NAVJOT Levalbuterol HCl (Levalbuterol Hcl 1.25 Mg/3 Ml Vial.Neb) 1.25 mg INHALE Q4H PRN PRN Reason: Wheezing/SOB Levothyroxine Sodium (Levothyroxine Sodium 25 Mcg Tablet) 12.5 mcg PO DAILY@0600 COUNTS INCLUDE 234 BEDS AT THE [facility] Last Admin: 10/06/24 06:01 Dose: 12.5 mcg Documented By: NAVJOT Magnesium Hydroxide (Milk Of Magnesia 30 Ml Oral.Susp) 30 ml PO DAILY PRN PRN Reason: Constipation Melatonin (Melatonin 3 Mg Tablet) 6 mg PO BEDTIME PRN PRN Reason: Insomnia Sodium Chloride (0.9 % Sodium Chloride Flush 3 Ml Syringe) 3 ml IVFLUSH QSHIFT COUNTS INCLUDE 234 BEDS AT THE [facility] Last Admin: 10/06/24 07:17 Dose: Not Given Documented By: LUCIA Non-Admin Reason: Patient Asleep <Gladys Davis DNP - Last Filed: 10/06/24 11:44> Labs CBC & Chem 7: 10/06/24 04:58 10/06/24 04:58 <Gladys Davis DNP - Last Filed: 10/06/24 11:44> Labs: Laboratory Results - last 24 hr 10/05/24 10/05/24 10/06/24 10:57 11:59 04:58 MCV 72.8 L MCH 22.6 L MCHC 31.1 RDW 24.0 H Plt Count 156 L MPV TNP Immature Gran % (Auto) 0.7 H Neut % (Auto) 73.8 H Lymph % (Auto) 11.3 L Johnson % (Auto) 6.6 Eos % (Auto) 7.0 H Baso % (Auto) 0.6 Lymph # (Auto) 1.9 Johnson # (Auto) 1.1 Eos # (Auto) 1.2 H Baso # (Auto) 0.1 Abs Immat Gran (auto) 0.12 H Absolute Neuts (auto) 12.6 H Absolute Nucleated RBC 0.000 Nucleated RBC % (auto) 0.0 Hold Purple Top SEE NOTE Anion Gap 13 Estim Creat Clear Calc 49.4 Estimated GFR > 60 Random Glucose 83 Lactic Acid 1.8 Calcium 7.9 L D Magnesium 1.9 Total Bilirubin 0.6 AST 49 H ALT 23 Alkaline Phosphatase 86 Total Protein 5.8 L Albumin 3.1 L Hold Red Top See Note Hold Yellow Top See Note <Gladys DavisELIZABETH - Last Filed: 10/06/24 11:44> Assessment and Plan (1) Pneumonia: Status: Acute <Gladys DavisELIZABETH - Last Filed: 10/06/24 11:44> Assessment and Plan: 89-year-old male with a medical history including COPD, left subclavian artery stenosis, history of SVT, LBBB, CAD, PVD history of pleural effusions diagnosed in April 2024 polycythemia vera, hypertension, high cholesterol, history of [place] admitted after a fall found to have multinodular PNA and Wide QRS complex requiring cardioversion in ED. he is admitted for treatment of hypoxic respiratory failure, PNA and NSTEMI. Acute on chronic Hypoxic respiratory failure secondary to Multinodular pneumonia Continues on 02 @ 2L/m Continue ceftriaxone and Doxy [employer], Modified diet. Aspiration precautions. NSTEMI S/P Cardioversion after he presented in a wide complex QRS. Received 2 doses of adenosine without significant change, Cardioverted in ED. Initially on admission 60.4. Elevated to 284.0--->233.4 ECHO with wall motion abnormality. Patient with known history of coronary artery disease followed by [facility] outpatient. Cardiology following, recommend therapeutic lovenox for 48 hours. SR with 1st degree AVB on tele. No overnight events Lasix and metoprolol resumed Continue ASA, plavix. Continue Amiodarone Hypothyroidism Patient was admitted back in May, he had elevated TSH at that time with a low free T4, he was started on levothyroxine 75 mcg was recommendations to check his TSH in 6 weeks. On admission this time his TSH noted to be 54.02 with an undetectable Free T4. Prescription not filled, therefore patient was not taking. Discussed case with Dr. Rincon who recommended starting levothyroxine at a low dose of 12.5 mcg daily in a.m., if patient tolerates this dose may increase to 25 mcg daily in a.m. and 3-4 days. Outpatient management includes checking TSH and free T4 in 4 weeks and gradually increasing the levothyroxine at 25 mcg doses until patient's TSH normalizes. COPD Continue Trelegy HLD Resume Atorvastatin Polycythemia vera Continue to follow up outpatient Hematology PVD/CAD Increased redness, swelling and pain to left leg. US to rule out DVT Continue Statin, ASA and Plavix DVT prophylaxis: On Therapeutic Lovenox Code Status: DNR/DNI <Gladys Davis DNP - Last Filed: 10/06/24 11:44> Quality Stroke Does the patient have a stroke diagnosis?: No <Gladys Davis DNP - Last Filed: 10/06/24 11:44> VTE Prior VTE?: No <Gladys Davis DNP - Last Filed: 10/06/24 11:44> VTE Risk Level:: Medical - moderate - high <Gladys Davis DNP - Last Filed: 10/06/24 11:44> VTE Device Contraindication: Treatment Not Indicated <Gladys Davis DNP - Last Filed: 10/06/24 11:44> VTE Drug Contraindication: N/A - Med Ordered <Gladys Davis DNP - Last Filed: 10/06/24 11:44>
--- NOTE | 2024-10-06 10:51 | MHC.CM.PN ---
IMM 10/06/24, Pt lives with his family, he was uncertain of the name of PCP, inquiries made and CM thinks it is Dr. Olivo. Pt is active with [facility] for SN and PT, update sent via [employer]. Pt is on home O2, he has a cane and a walker. HCP is on file and confirmed, naming his and son: Martita and Ed. Family to transport home at [place], DCP; home, resume [facility] services. CM to follow for DC needs.
--- NOTE | 2024-10-06 11:03 | MHC.SL.SWA ---
Speech Pathologist Impression: Variable presbyphagia interfering intermittently with pt efficiency of PO tolerance for purees and thin liquids Risk of Aspiration Due to: Hx of aspriation PNA Hx of advanced COPD Hx of dementia Dysphasia Diet Status: Recommend pt continue with PUREE solids (NDD1) and THIN liquids w/ meds WHOLE in PUREE. Pt benefits from cues to slow pace and take small bites/sips. Liquid Consistency and Strategies for Safe Swallow: Liquid Intake Recommendation: Thin Liquid Intake Strategies: Small Sips Solid Food Consistency: Dietary Recommendations: Pureed (NDD1) Additional Modifications to Solid Foods: Slow pacing, reduce bolus size Oral Medication Intake: Crushed with Puree Please contact the pharmacy regarding appropriate crushable or liquid drug formulations that are available whenever modified delivery is recommended. Compensatory Strategies and Precautions to be Taken for Safe Swallow: Sitting Upright (90 deg) Double Swallow Small Bites and Sips Supervision While Eating and Drinking for Safe Swallow: Direct Supervision (1:1) Foods to Avoid: Swallowing Recommended Treatments: Compens. Strategy Educat. Recommendation for Speech: Inpatient Speech Therapy Comment: Direct supervision & aspiration precautions Pt seen for dysphagia treatment. RN and [employer] consulted. Pt tolerating purees and thins with variable efficiency. Presbyphagia considered to be moderate, though pt is able to follow simple cues to improve safety. Oral phase of swallow adequate for homogenous consistencies, pt endorsed eating 'soft foods' at baseline. Pharyngeal phase of swallow intermittently delayed, with weakness in laryngeal elevation at times. Pt elicited double swallow reflexively. Pt sipped liquid by cup and by straw, with no observable difference in oropharyngeal coordination. Likelihood of recurrent aspiration PNA considered elevated given pt advanced age and hx of advanced COPD. [employer] B [employer] continues to follow, no changes to diet at this time. Frequency/Duration: M-F Date Range for Service Req: Timeline to reassess: Corporate Treasurer Clinican/Clinical Fellow: No Supervisory Statement: I have reviewed and agree with the student/clinical fellow's documentation: N/A Speech Language Pathologist: Maryuri Burger M.S., CCC-CLASS B TRUCK DRIVER
--- NOTE | 2024-10-06 11:48 | PM.PNCARD ---
Subjective Subjective Date of Service: 10/06/24 Interval history: Seen examined at bedside. Denying any symptoms currently. Physical Exam Vital Signs: Last Vital Signs Temp 97.0 F 10/06/24 11:35 Pulse 67 10/06/24 11:35 Resp 20 10/06/24 11:35 BP 116/70 10/06/24 11:35 Pulse Ox 97 10/06/24 11:35 O2 Del Method Nasal Cannula 10/06/24 11:35 O2 Flow Rate 2 10/06/24 11:35 Oxygen Flow Rate 4 10/05/24 06:49 BMI result Body Mass Index 24.1 GENERAL APPEARANCE: In no distress. NECK: no carotid bruit, no jugular venous distention. SKIN: no suspicious lesions, warm and dry. HEART: no murmurs, regular rate and rhythm. LUNGS: Clear to auscultation anteriorly. ABDOMEN: soft, nontender. EXTREMITIES: no edema. PERIPHERAL PULSES: equal. Objective Labs and Meds 10/06/24 04:58 10/06/24 04:58 Lab results: Laboratory Results - last 24 hr 10/05/24 10/05/24 10/05/24 11:59 12:11 14:25 WBC RBC Hgb Hct MCV MCH MCHC RDW Plt Count MPV Immature Gran % (Auto) Neut % (Auto) Lymph % (Auto) [place] % (Auto) Eos % (Auto) Baso % (Auto) Lymph # (Auto) [place] # (Auto) Eos # (Auto) Baso # (Auto) Abs Immat Gran (auto) Absolute Neuts (auto) Absolute Nucleated RBC Nucleated RBC % (auto) Hold Purple Top SEE NOTE Sodium Potassium Chloride Carbon Dioxide Anion Gap BUN Creatinine Estim Creat Clear Calc Estimated GFR Random Glucose Calcium Magnesium Total Bilirubin AST ALT Alkaline Phosphatase Troponin I High Sens 284.0 H* D 233.4 H* Total Protein Albumin Hold Red Top See Note Hold Yellow Top See Note 10/06/24 04:58 WBC 17.1 H RBC 6.06 H Hgb 13.7 L Hct 44.1 MCV 72.8 L MCH 22.6 L MCHC 31.1 RDW 24.0 H Plt Count 156 L MPV TNP Immature Gran % (Auto) 0.7 H Neut % (Auto) 73.8 H Lymph % (Auto) 11.3 L [place] % (Auto) 6.6 Eos % (Auto) 7.0 H Baso % (Auto) 0.6 Lymph # (Auto) 1.9 [place] # (Auto) 1.1 Eos # (Auto) 1.2 H Baso # (Auto) 0.1 Abs Immat Gran (auto) 0.12 H Absolute Neuts (auto) 12.6 H Absolute Nucleated RBC 0.000 Nucleated RBC % (auto) 0.0 Hold Purple Top Sodium 134 L Potassium 3.7 D Chloride 99 Carbon Dioxide 26 Anion Gap 13 BUN 11 Creatinine 0.98 Estim Creat Clear Calc 49.4 Estimated GFR > 60 Random Glucose 83 Calcium 7.9 L D Magnesium 1.9 Total Bilirubin 0.6 AST 49 H ALT 23 Alkaline Phosphatase 86 Troponin I High Sens Total Protein 5.8 L Albumin 3.1 L Hold Red Top Hold Yellow Top Progress Note: A&P Assessment and plan (1) NSTEMI (non-ST elevated myocardial infarction): Status: Acute (2) Supraventricular tachycardia: Status: Acute (3) Cardiomyopathy: Status: Acute Plan Pleasant 89 year gentleman presenting with SVT with aberrancy requiring cardioversion in the emergency department. He had mildly elevated troponin levels but echocardiography has shown LV dysfunction with EF 30%. Wall motion pattern is concerning for takotsubo cardiomyopathy versus LAD territory ischemia. Higher troponins were expected with LAD ischemia in my opinion but overall this can not be ruled out. He does have known history of LAD stenosis which was in moderate range in 2017. He is denying any ischemic symptoms currently. He also has multifocal pneumonia at this point. I would medically treat him currently with Lovenox for 48 hours. Continue aspirin and Plavix as before. Continue amiodarone for SVT. He has had few episodes of SVT before with clinical consequences. Not sure that with the advanced age SVT ablation is a possibility or not. We will have to explore that with the electrophysiology eventually. Thank you for allowing me to participate in the care of your patient. Please feel free to contact me if you have any questions. Time Spent With Patient Time: Total time managing care of this patient today ____ minutes. Progress Note: Quality Stroke Does the patient have a stroke diagnosis?: No Procedures Date of Service Date of Service: 10/06/24
[2024-10-06] MEDS: Metoprolol Succinate ER 50 MG TAB.ER.24H PO (13:27)
[2024-10-06 13:44] LABS: INTERNATIONAL NORM RATIO 1.4 (0.9-1.1); Prothrombin Time 16.3 SEC (10.9-12.4)
[2024-10-06] MEDS: 0.9 % Sodium Chloride Flush 3 ML SYRINGE IVFLUSH (21:08)
[2024-10-07 03:55] VITALS: BP 135/82; PULSE 62; RESP 16; TEMP 36.3; O2SAT 99
[2024-10-07 08:00] VITALS: BP 139/75; PULSE 60; RESP 20; TEMP 36.1; O2SAT 97
[2024-10-07] MEDS: Fluticasone/Umeclidinium/Vilanterol 200/62.5/25 BLST.W.DEV 1 PUFF INHALE (08:43)
[2024-10-07 08:46] VITALS: PULSE 60; RESP 16; O2SAT 95
[2024-10-07] MEDS: Aspirin Enteric Coated 81 MG TABLET.DR PO (09:32)
[2024-10-07] MEDS: Metoprolol Succinate ER 50 MG TAB.ER.24H PO (09:32)
[2024-10-07] MEDS: Ferrous Sulfate 324 MG TABLET.DR PO (09:32)
[2024-10-07] MEDS: 0.9 % Sodium Chloride Flush 3 ML SYRINGE IVFLUSH (09:33)
--- NOTE | 2024-10-07 09:43 | P.PNIM_ITS ---
Subjective Subjective Date of Service: 10/07/24 Interval History: Patient was seen and examined, he feels well, wants to go home. PT eval pending. Ultrasound negative for DVT to his left leg. Review of Systems Denies any shortness of breath, chest pain, dizziness, lightheadedness, abdominal pain or discomfort, nausea vomiting or diarrhea Physical Exam 2 Exam: Exam: Alert and oriented X3, able to give good history. Neuro: CN II-X11 intact, no deficits, visual acuity intact ENT: [place], lips moist Cardiac: S1 S2 RRR, No ectopy Pulmonary: lungs with wheezing throughout, No increased WOB. Is on oxygen 2L/m via nasal cannula Abdominal: BS active in all 4 quadrants, no guarding or tenderness MSK: Strength 5/5 upper and lower extremities : Deferred Extremities: Positive nonpitting edema to left lower extremity, trace edema to right Psych: Mood stable, pleasant and cooperative. Skin: Warm and dry Vital Signs: Vital Signs: Last Vital Signs Temp 96.9 F 10/07/24 08:00 Pulse 60 10/07/24 08:46 Resp 16 10/07/24 08:46 BP 139/75 10/07/24 08:00 Pulse Ox 97 10/07/24 08:00 O2 Del Method Nasal Cannula 10/07/24 08:00 O2 Flow Rate 2 10/07/24 08:00 Oxygen Flow Rate 4 10/05/24 06:49 BMI result Body Mass Index 24.1 Objective Data Active Medications Acetaminophen (Acetaminophen 325 Mg Tablet) 650 mg PO Q6H PRN PRN Reason: Pain, Mild 1-3,fever,headache Last Admin: 10/06/24 08:42 Dose: 650 mg Documented By: NEETU Amiodarone HCl (Amiodarone Hcl 200 Mg Tablet) 200 mg PO DAILY [facility] Last Admin: 10/07/24 09:32 Dose: 200 mg Documented By: CHAD Aspirin (Aspirin Enteric Coated 81 Mg Tablet.) 81 mg PO DAILY [facility] Last Admin: 10/07/24 09:32 Dose: 81 mg Documented By: CHAD Atorvastatin Calcium (Atorvastatin Calcium 20 Mg Tablet) 20 mg PO BEDTIME [facility] Last Admin: 10/06/24 21:08 Dose: 20 mg Documented By: VONDA Calcium Carbonate (Calcium Carbonate 750 Mg Tab.Chew) 750 mg PO Q4H PRN PRN Reason: Heartburn Ceftriaxone Sodium (Ceftriaxone Sodium 1 Gm Vial) 1 gm IVPUSH Q24H [facility] Last Admin: 10/07/24 09:32 Dose: 1 gm Documented By: CHAD Clopidogrel Bisulfate (Clopidogrel Bisulfate 75 Mg Tablet) 75 mg PO DAILY [facility] Last Admin: 10/07/24 09:32 Dose: 75 mg Documented By: CHAD Cyanocobalamin (Cyanocobalamin (Vitamin B-12) 1,000 Mcg Tablet) 1,000 mcg PO DAILY [facility] Last Admin: 10/07/24 09:32 Dose: 1,000 mcg Documented By: CHAD Ferrous Sulfate (Ferrous Sulfate 324 Mg Tablet.Dr) 324 mg PO DAILY [facility] Last Admin: 10/07/24 09:32 Dose: 324 mg Documented By: CHAD Fluticasone/Umeclidinium/Vilanterol (Fluticasone/Umeclidinium/Vilanterol 200/62.5/25 Blst.W.Dev) 1 puff INHALE RDAILY [facility] Last Admin: 10/07/24 08:43 Dose: 1 puff Documented By: FARHANA Furosemide (Furosemide 40 Mg Tablet) 40 mg PO DAILY [facility]; Protocol Last Admin: 10/07/24 09:32 Dose: 40 mg Documented By: CHAD Doxycycline Hyclate 100 mg/ (Sodium Chloride) 250 mls @ 166.67 mls/hr IV Q12H [facility] Last Admin: 10/07/24 09:31 Dose: 166.67 mls/hr Documented By: CHAD Levalbuterol HCl (Levalbuterol Hcl 1.25 Mg/3 Ml Vial.Neb) 1.25 mg INHALE Q4H PRN PRN Reason: Wheezing/SOB Levothyroxine Sodium (Levothyroxine Sodium 25 Mcg Tablet) 12.5 mcg PO DAILY@0600 [facility] Last Admin: 10/07/24 06:04 Dose: 12.5 mcg Documented By: VONDA Magnesium Hydroxide (Milk Of Magnesia 30 Ml Oral.Susp) 30 ml PO DAILY PRN PRN Reason: Constipation Melatonin (Melatonin 3 Mg Tablet) 6 mg PO BEDTIME PRN PRN Reason: Insomnia Metoprolol Succinate (Metoprolol Succinate Er 50 Mg Tab.Er.24h) 50 mg PO DAILY [facility]; Protocol Last Admin: 10/07/24 09:32 Dose: 50 mg Documented By: CHAD Sodium Chloride (0.9 % Sodium Chloride Flush 3 Ml Syringe) 3 ml IVFLUSH QSHIFT [facility] Last Admin: 10/07/24 09:33 Dose: 3 ml Documented By: CHAD Labs 10/07/24 13:13 10/06/24 04:58 Labs: Laboratory Results - last 24 hr 10/06/24 13:24 PT 16.3 H INR 1.4 H Microbiology Microbiology Results: Microbiology 10/05/24 09:51 Blood Culture - Preliminary Blood - Venous No growth after 24 hours. 10/05/24 09:51 Blood Culture - Preliminary Blood - Venous No growth after 24 hours. Assessment and Plan (1) Pneumonia: Status: Acute Plan 89-year-old male with a medical history including COPD, left subclavian artery stenosis, history of SVT, LBBB, CAD, PVD history of pleural effusions diagnosed in April 2024 polycythemia vera, hypertension, high cholesterol, history of [place] admitted after a fall found to have multinodular PNA and Wide QRS complex requiring cardioversion in ED. he is admitted for treatment of hypoxic respiratory failure, PNA and NSTEMI. Acute on chronic Hypoxic respiratory failure secondary to Multinodular pneumonia Continues on 02 @ 2L/m Continue ceftriaxone and Doxy [employer], Modified diet. Aspiration precautions. NSTEMI S/P Cardioversion after he presented in a wide complex QRS. Received 2 doses of adenosine without significant change, Cardioverted in ED. Initially on admission 60.4. Elevated to 284.0--->233.4 ECHO with wall motion abnormality. Patient with known history of coronary artery disease followed by [facility] outpatient. Cardiology following, recommendations appreciated. Completed 48hours . SR with 1st degree AVB on tele. No overnight events Lasix and metoprolol resumed Continue ASA, plavix. Continue Amiodarone Hypothyroidism Patient was admitted back in May, he had elevated TSH at that time with a low free T4, he was started on levothyroxine 75 mcg was recommendations to check his TSH in 6 weeks. On admission this time his TSH noted to be 54.02 with an undetectable Free T4. Prescription not filled, therefore patient was not taking. Discussed case with Dr. Rincon who recommended starting levothyroxine at a low dose of 12.5 mcg daily in a.m., if patient tolerates this dose may increase to 25 mcg daily in a.m. and 3-4 days. Outpatient management includes checking TSH and free T4 in 4 weeks and gradually increasing the levothyroxine at 25 mcg doses until patient's TSH normalizes. COPD Continue Trelegy HLD Resume Atorvastatin Polycythemia vera Continue to follow up outpatient Hematology PVD/CAD Increased redness, swelling and pain to left leg. US to rule out DVT Continue Statin, ASA and Plavix DVT prophylaxis: On Therapeutic Lovenox Code Status: DNR/DNI Quality Stroke Does the patient have a stroke diagnosis?: No VTE Prior VTE?: No VTE Risk Level:: Medical - moderate - high VTE Device Contraindication: Treatment Not Indicated VTE Drug Contraindication: N/A - Med Ordered
[2024-10-07 09:51] LABS: Hematocrit 46.7 % (42.0-52.0); Hemoglobin 14.1 g/dl (14.0-18.0); Imm Gran Abs Auto 0.11 X10*3/uL (0.00-0.03); Imm Gran Pct Auto 0.6 % (0.0-0.4); Lymphocytes Absolute Auto 2.5 X10*3/uL (1.2-4.9); MANUAL DIFF FLAG SCAN; Mean Corpuscular HGB Conc 30.2 g/dl (31.0-36.0); Mean Corpuscular Hemoglobin 22.7 pg (27.0-33.0); Mean Corpuscular Volume 75.2 fL (80.0-98.0); NRBC Abs Auto 0.000 X10*3/uL (0.0-0.012); NRBC Pct Auto 0.0 /100WBC (0.0-0.2); Platelet Count 184 X10*3/uL (160-400); Red Blood Count 6.21 X10*6/uL (4.60-5.80); SCAN SMEAR FLAG 1; White Blood Count 19.3 X10*3/uL (4.8-10.8)
[2024-10-07 11:23] VITALS: BP 134/64; PULSE 57; O2SAT 97
[2024-10-07 11:40] VITALS: BP 134/64; PULSE 57; RESP 20; TEMP 36.1; O2SAT 97
[2024-10-07 13:21] LABS: Hematocrit 45.7 % (42.0-52.0); Hemoglobin 13.9 g/dl (14.0-18.0); Mean Corpuscular HGB Conc 30.4 g/dl (31.0-36.0); Mean Corpuscular Hemoglobin 22.9 pg (27.0-33.0); Mean Corpuscular Volume 75.3 fL (80.0-98.0); NRBC Abs Auto 0.000 X10*3/uL (0.0-0.012); NRBC Pct Auto 0.0 /100WBC (0.0-0.2); Platelet Count 209 X10*3/uL (160-400); Red Blood Count 6.07 X10*6/uL (4.60-5.80); White Blood Count 19.3 X10*3/uL (4.8-10.8)
--- NOTE | 2024-10-07 14:41 | MHC.SL.SWA ---
Speech Pathologist Impression: Risk of Aspiration, Oropharyngeal Dysphagia Risk of Aspiration Due to: Underlying COPD, on home O2 Dysphasia Diet Status: No Change Liquid Consistency and Strategies for Safe Swallow: Liquid Intake Recommendation: Thin Liquid Intake Strategies: Small Sips Solid Food Consistency: Dietary Recommendations: Pureed (NDD1) Additional Modifications to Solid Foods: Slow pacing, reduce bolus size Oral Medication Intake: Crushed with Puree Please contact the pharmacy regarding appropriate crushable or liquid drug formulations that are available whenever modified delivery is recommended. Compensatory Strategies and Precautions to be Taken for Safe Swallow: Sitting Upright (90 deg) Double Swallow Small Bites and Sips Supervision While Eating and Drinking for Safe Swallow: Direct Supervision (1:1) Swallowing Recommended Treatments: Compens. Strategy Educat. Recommendation for Speech: Inpatient Speech Therapy Frequency/Duration: M-F Date Range for Service Req: Timeline to reassess: Radiological Metallurgist Clinican/Clinical Fellow: No Supervisory Statement: I have reviewed and agree with the student/clinical fellow's documentation: N/A Speech Language Pathologist: Danielle Beverly M.A., CCC-SERVICES ENGINEER
[2024-10-07 15:37] VITALS: BP 115/71; PULSE 56; RESP 14; TEMP 36.2; O2SAT 98
--- NOTE | 2024-10-07 16:31 | PM.DS ---
DS: Providers Provider Date of Service: 10/07/24 Date of admission: 10/05/24 10:02 Date of discharge: 10/07/24 Primary care physician: Jonathan Olivo MD Admitting clinician: Van Torres Consults: 10/05/24 08:09 Consult to Cardiology Stat Consulting Provider: [facility] Reason for consultation: tachycardia Has provider been notified: Yes 10/07/24 10:46 Consult to Wound Care Routine Reason for consultation: Left elbow skin tear Has provider been notified: Yes Discharging clinician: Gladys Davis DS: Diagnosis Discharge Diagnosis (1) Pneumonia: Start date: 10/06/24 Status: Acute (2) NSTEMI (non-ST elevated myocardial infarction): Status: Acute DS: Summary Hospital Course Hospital Course: 89-year-old male with a past medical history of advanced COPD, left subclavian artery stenosis, history of SVT, LBBB, CAD, PVD history of pleural effusions diagnosed in April 2024 polycythemia vera, hypertension, high cholesterol, history of CO in 2016 presented to the ED after a fall at home. He was found to be in a wide complex tachycardia. He received adenosine 6 and 12 mg but did not convert to sinus rhythm. He was cardio converted in the ED. Patient initially hypoxic to 71% initially requiring 6L/M. Chest x-ray revealed multifocal pneumonia likely due to aspiration. He was given ceftriaxone and doxycycline. Head CT was negative, no acute fractures, no acute intracranial hemorrhage. Cervical spine CT negative for any acute fracture or trauma related listhesis. Chest x-ray no acute cardiopulmonary abnormality. Initial troponin elevated. BNP slightly elevated 271. Patient was admitted and monitored on telemetry, received 48 hours with of Lovenox. Was continued on his home medications including amiodarone and metoprolol. Patient had a ultrasound for suspected DVT in the left lower leg due to swelling which was negative for DVT. He was followed by Cardiology and will need Cardiology follow up as an outpatient. Regarding his multifocal pneumonia, he was started on doxycycline and ceftriaxone, seen by speech language pathology who recommended a pureed diet due to aspiration risk. Patient was seen by PT who recommended short-term rehab, patient declines this and wishes to go home with VNA services and family support. He initially required increased oxygen due to hypoxia now on his baseline 2L/m. Status at Discharge Overall status at discharge: patient is back to baseline Time Attestation Total time managing care of this patient today: 30 mintues. Discharge Coordination Time (in mins): 30 Quality: Safe Use of Opioids Does Pt have an Active Cancer Diagnosis on the Problem List?: No Quality: Stroke Does the patient have a stroke diagnosis?: No Physical Exam Exam: Exam: Alert and oriented X3, able to give good history. Neuro: CN II-X11 intact, no deficits, visual acuity intact ENT: OUZINKIE, lips moist Cardiac: S1 S2 RRR, No ectopy Pulmonary: lungs with wheezing throughout, No increased WOB. Is on oxygen 2L/m via nasal cannula Abdominal: BS active in all 4 quadrants, no guarding or tenderness MSK: Strength 5/5 upper and lower extremities : Deferred Extremities: nonpitting edema to left lower extremity, trace edema to right Psych: Mood stable, pleasant and cooperative. Skin: Warm and dry Vital Signs: Vital Signs: Last Vital Signs Temp 97.1 F 10/07/24 15:37 Pulse 56 10/07/24 15:37 Resp 14 10/07/24 15:37 BP 115/71 10/07/24 15:37 Pulse Ox 98 10/07/24 15:37 O2 Del Method Nasal Cannula 10/07/24 15:37 O2 Flow Rate 2 10/07/24 15:37 Oxygen Flow Rate 4 10/05/24 06:49 BMI result Body Mass Index 24.1 DS: Data Data Completed and Pending Completed studies during hospitalization [Text1]: Procedures Assistance with Respiratory Ventilation, Less than 24 Consecutive Hours, Continuous Positive Airway Pressure (06/13/24) Insertion of Infusion Device into Superior Vena Cava, Percutaneous Approach (04/28/24) Insertion of Infusion Device into Upper Vein, Percutaneous Approach (04/28/24) Introduction of Vasopressor into Peripheral Vein, Percutaneous Approach (06/13/24) Pentecostal of Cardiac Rhythm, Single (02/13/24) Transfusion of Nonautologous Frozen Plasma into Peripheral Vein, Percutaneous Approach (04/28/24) Transfusion of Nonautologous Red Blood Cells into Peripheral Vein, Percutaneous Approach (04/28/24) Ultrasonography of Superior Vena Cava, Guidance (04/28/24) Pending studies at discharge: None Labs on day of discharge: Laboratory Results - last 24 hr 10/07/24 10/07/24 09:43 13:13 WBC 19.3 H 19.3 H RBC 6.21 H 6.07 H Hgb 14.1 13.9 L Hct 46.7 45.7 MCV 75.2 L 75.3 L MCH 22.7 L 22.9 L MCHC 30.2 L 30.4 L RDW 24.4 H 24.4 H Plt Count 184 209 MPV Not Reportable Not Reportable Immature Gran % (Auto) 0.6 H Neut % (Auto) 68.7 Lymph % (Auto) 12.8 L Tyrrell % (Auto) 4.8 Eos % (Auto) 12.4 H Baso % (Auto) 0.7 Lymph # (Auto) 2.5 Tyrrell # (Auto) 0.9 Eos # (Auto) 2.4 H Baso # (Auto) 0.1 Abs Immat Gran (auto) 0.11 H Absolute Neuts (auto) 13.2 H Absolute Nucleated RBC 0.000 0.000 Nucleated RBC % (auto) 0.0 0.0 Smear Tech's Comments VERIFIED Preliminary micro results at discharge 10/05/24 09:51 Blood Culture - Preliminary Blood - Venous No growth after 48 hours. 10/05/24 09:51 Blood Culture - Preliminary Blood - Venous No growth after 48 hours. Imaging Chest x-ray: Radiologist's impression: ITS Impressions Chest X-Ray 10/05/24 07:15 IMPRESSION: No acute cardiopulmonary abnormality. Electronically signed by: Aris Gonzalez MD 10/05/2024 08:40 AM EDT RP Cervical Spine CT 10/05/24 07:47 IMPRESSION: No acute fracture or trauma-related listhesis. Multilevel spondylosis. Atherosclerosis disease. Osteopenia versus osteoporosis. Fleischner guidelines were followed. Electronically signed by: Kj Rivera MD 10/05/2024 09:30 AM EDT RP Chest CT 10/05/24 07:47 IMPRESSION: Multifocal pneumonia likely related to aspiration. Coronary artery disease and atherosclerosis disease. Subacute to old compression fractures T5 T8 and to a lesser extent T10. Fleischner guidelines were followed. Electronically signed by: Kj Rivera MD 10/05/2024 09:40 AM EDT RP Head CT 10/05/24 08:47 IMPRESSION: No acute fracture, bony calvarium. No acute intracranial hemorrhage. Small vessel occlusive disease. Global cerebral atrophy. Atherosclerosis disease, intracranial. Chronic polypoid paranasal sinus disease. Electronically signed by: Kj Rivera MD 10/05/2024 09:24 AM EDT RP Venous Duplex 10/06/24 10:50 IMPRESSION: No acute deep venous thrombosis interrogated veins, left lower extremity. Negative for DVT. Electronically signed by: Kj Rivera MD 10/06/2024 12:20 PM EDT RP Discharge Plan Discharge Anticipated Discharge Date/Time: 10/07/24 16:37 Patient Disposition: Home Health Service Discharge Diagnosis: Multifocal pneumonia NSTEMI Hypothyroidism Referrals: Jonathan Olivo MD [Primary Care Provider, Internal Medicine] - 1 Week Discharge Medications: New furosemide 40 mg Tablet 40 mg PO DAILY Qty: 30 0RF Protocol: Hold for SBP< HOLD for SBP < : 90 atorvastatin 20 mg Tablet 20 mg PO BEDTIME Qty: 30 0RF amiodarone 200 mg Tablet 200 mg PO DAILY Qty: 30 0RF metoprolol succinate 50 mg Tablet Extended Release 24 Hr 50 mg PO DAILY Qty: 30 0RF Protocol: Hold for SBP/HR < HOLD for SBP < : 90 HOLD for HR < : 60 cyanocobalamin (vitamin B-12) [Vitamin B-12] 1,000 mcg Tablet 1,000 mcg PO DAILY Qty: 30 0RF clopidogrel 75 mg Tablet 75 mg PO DAILY Qty: 30 0RF aspirin 81 mg Tablet,Delayed Release (Dr/Ec) 81 mg PO DAILY Qty: 30 0RF ferrous sulfate 324 mg (65 mg iron) Tablet,Delayed Release (Dr/Ec) 324 mg PO DAILY Qty: 30 0RF Trelegy Ellipta 200-62.5-25 mcg Blister With Device 1 inh inhalation DAILY Qty: 60 0RF levothyroxine 25 mcg capsule 25 mcg PO DAILY Qty: 30 0RF doxycycline hyclate 100 mg tablet 100 mg PO BID Qty: 14 0RF cefuroxime axetil 250 mg tablet 250 mg PO Q12H Qty: 14 0RF Continued cyanocobalamin (vitamin B-12) 1,000 mcg tablet 1,000 mcg PO DAILY albuterol sulfate 90 mcg/actuation HFA aerosol inhaler 1 puff INHALATION Q6H PRN (Reason: asthma) albuterol sulfate 2.5 mg /3 mL (0.083 %) solution for nebulization 2.5 mg inhalation Q8H PRN (Reason: Shortness Of Breath Or Wheezing) furosemide 40 mg tablet 40 mg PO DAILY metoprolol succinate 50 mg tablet extended release 24 hr 50 mg PO DAILY clopidogrel 75 mg tablet 75 mg PO DAILY ferrous sulfate 325 mg (65 mg iron) tablet 325 mg PO DAILY amiodarone 200 mg tablet 200 mg PO DAILY atorvastatin 20 mg tablet 20 mg PO BEDTIME Discharge Orders: Discharge Order (Routine); Ordered 10/07/24 Ordered By: Gladys Davis Diet: Puree with thin liquids Activity on Discharge: As tolerated Stand Alone Forms: Patient Portal Discharge page Print Language: Unable To Collect Care Plan Goals: Recovery from Pneumonia Recovery from NSTEMI Recovery form hypothyroidism Health Concerns: Multifocal PNA Risk for aspiration Hypothyroidism NSTEMI Plan of Treatment: As below Assessment: Acute on chronic Hypoxic respiratory failure secondary to Multinodular pneumonia Continues on home 02 @ 2L/m Complete cefuroxime and Doxycycline for 7 more days Puree diet. At risk for reoccurring pneumonia from aspiration NSTEMI S/P Cardioversion after he presented in a wide complex QRS. Received 2 doses of adenosine without significant change, Cardioverted in ED. Initially on admission 60.4. Elevated to 284.0--->233.4 ECHO with wall motion abnormality. Received therapeutic lovenox for 48 hours. Continue ASA, plavix. Continue Amiodarone, metoprolol and lasix and atorvastatin Medical management Follow up with cardiology Hypothyroidism Continue Levothyroxine as ordered. Follow up with PCP for further management Outpatient management includes checking TSH and free T4 in 4 weeks and gradually increasing the levothyroxine at 25 mcg doses until patient's TSH normalizes. Discharged on 25 MCG daily COPD Continue Trelegy, PRN albuterol and Home Oxygen Polycythemia vera Continue to follow up outpatient Hematology PVD/CAD DVT ruled out Continue compression stockings at home Continue Statin, ASA and Plavix Patient Instructions: Pneumonia (DC)
== END 2024-10-07 18:45 | disposition home health service (06) | DRG 177 ==
LOC: HO.ED 09:34 → HO.IMC 10:40 → HO.EDOVER 11:53 → HO.IMC 10-06 00:09 → HO.EDOVER 10-06 01:02 → HO.IMC 10-06 07:27
PROVIDERS: Emergency Medicine; Student in an Organized Health Care Education/Training Program; Admitting Provider Nurse Practitioner Family; Emergency Provider Emergency Medicine; PCP Internal Medicine; Visit Provider Nurse Practitioner Family
DX: J69.0 Pneumonitis due to inhalation of food and vomit (principal); I21.4 Non-ST elevation (NSTEMI) myocardial infarction; J96.21 Acute and chronic respiratory failure with hypoxia; I47.10 Supraventricular tachycardia, unspecified; I51.81 Takotsubo syndrome; E03.9 Hypothyroidism, unspecified; Z66 Do not resuscitate; I25.10 Atherosclerotic heart disease of native coronary artery without angina pectoris; E78.5 Hyperlipidemia, unspecified; D45 Polycythemia vera; J44.9 Chronic obstructive pulmonary disease, unspecified; Z20.822 Contact with and (suspected) exposure to COVID-19; Z87.891 Personal history of nicotine dependence; Z87.01 Personal history of pneumonia (recurrent); Z79.02 Long term (current) use of antithrombotics/antiplatelets; Z79.51 Long term (current) use of inhaled steroids; Z79.82 Long term (current) use of aspirin; Z79.890 Hormone replacement therapy; Z79.899 Other long term (current) drug therapy
CPT/HCPCS: 36415; 70450; 71045; 71250; 72125; 80053; 81001; 81003; 82550; 82803; 83605; 83735; 83880; 84439; 84443; 84484; 85025; 85027; 85610; 87040; 87637; 92526; 92610; 93005; 93306; 93971; 97162; 99285; J0153; J0696; J1271; J1650; J3010; J7120; Q9957

== ENCOUNTER → 2024-10-05 07:15 | Outpatient (BNV) | payer MEDICARE, SELFPAY | PROVIDERS: Emergency Provider Emergency Medicine; Visit Provider Radiology Diagnostic Radiology | DX: R06.02 Shortness of breath (principal) | CPT/HCPCS: 71045 ==

== ENCOUNTER → 2024-10-05 07:35 | Outpatient (BNV) | payer MEDICARE, SELFPAY | PROVIDERS: Emergency Provider Emergency Medicine; Visit Provider Internal Medicine Cardiovascular Disease | DX: R00.0 Tachycardia, unspecified (principal); R94.31 Abnormal electrocardiogram [ECG] [EKG]; I35.8 Other nonrheumatic aortic valve disorders | CPT/HCPCS: 93010; 93306; 99223 ==

== ENCOUNTER 2024-10-05 10:02 | Outpatient (BNV) | payer MEDICARE, SELFPAY | END 2024-10-06 10:50 | PROVIDERS: Admitting Provider Nurse Practitioner Family; Emergency Provider Emergency Medicine; Visit Provider Radiology Diagnostic Radiology | DX: R60.0 Localized edema (principal); M79.662 Pain in left lower leg | CPT/HCPCS: 93971 ==

== ENCOUNTER → 2024-10-05 10:02 | Outpatient (BNV) | payer MEDICARE, SELFPAY | PROVIDERS: Admitting Provider Nurse Practitioner Family; Emergency Provider Emergency Medicine; Visit Provider Internal Medicine | DX: I21.4 Non-ST elevation (NSTEMI) myocardial infarction (principal); J18.9 Pneumonia, unspecified organism | CPT/HCPCS: 99223; 99232; 99238 ==

== ENCOUNTER 2024-10-17 08:24 | Inpatient (IN) | payer MEDICARE, SELFPAY ==
[2024-10-17] VITALS (25 sets, daily range): BP systolic 65–125; BP diastolic 37–74; PULSE 58–109; RESP 13–25; TEMP 37.1–38.5; O2SAT 91–100; BMI 24.0
--- NOTE | ~2024-10-17 | XR_ITS ---
CLINICAL HISTORY: per MD 1 view chest x-ray Comparison: Chest x-ray from 06/13/2024 Findings: [id number] airspace disease is nonspecific in the right lung including right hilar region of the right infrahilar region. Differential considerations include recurrent pneumonia. Other lung etiologies postobstructive phenomenon not excluded by abnormal radiograph. Small right pleural effusion. No pneumothorax. Calcifications involve the tortuous aorta. Mild/borderline cardiomegaly accentuated by technique. Mild right lateral clavicle deformity appears old/chronic IMPRESSION: 1. Airspace disease most pronounced in the right hilar region in the right lung base. Differential considerations include pneumonia. Recommend attention on follow-up to ensure resolution. 2. Small right pleural effusion. This document has been electronically signed by: Noé Segovia MD on 10/17/2024 20:05:15
--- NOTE | ~2024-10-17 | CT_ITS ---
CLINICAL HISTORY: altered mental status CT head without contrast Comparison: None Findings: No evidence of acute territorial infarct. There is patchy low density in the periventricular and subcortical white matter. Diffuse volume loss is noted. No hydrocephalus. No hemorrhage, mass effect, mass lesion or midline shift. No abnormal extra-axial fluid. No calvarial fracture. Paranasal sinuses and mastoid air cells are clear. Impression: No acute intracranial process. Chronic changes as detailed. This document has been electronically signed by: Melvin Iqbal MD on 10/17/2024 09:40:38
--- NOTE | ~2024-10-17 | CT_ITS ---
CLINICAL HISTORY: abdominal pain CT abdomen and pelvis without contrast Comparison: None provided Findings: There is patchy right lower lobe density. Trace associated effusion. The liver, gallbladder, spleen, adrenal glands and pancreas demonstrate no acute process. Kidneys demonstrate no obstruction. The bladder is unremarkable. Mild fecal retention. Normal appendix. No bowel obstruction or free air. Diverticulosis present. Age-indeterminate compression fractures at L4 and L2 as well as T10. Impression: Multifocal pneumonia of the right lung base. No definite acute process in the abdomen or pelvis. Age-indeterminate T10, L2 and L4 compression fractures. This document has been electronically signed by: Melvin Iqbal MD on 10/17/2024 09:31:53
--- NOTE | ~2024-10-17 | CT_ITS ---
CLINICAL HISTORY: ? pneumonia CT chest without contrast Comparison: None provided Findings: No significant cardiomegaly. Atherosclerotic disease of the coronary arteries noted. Ectasia of the ascending thoracic aorta present. Severe atherosclerotic disease of the aorta. No discrete thyroid lesion identified. Patchy multifocal airspace opacity most pronounced within the right middle and lower lobes. Diffuse chronic interstitial changes. Small right effusion. No acute osseous finding. Impression: Moderately severe multifocal pneumonia. Clinical follow-up recommended to ensure resolution. Additional incidental findings. This document has been electronically signed by: Melvin Iqbal MD on 10/17/2024 09:38:38
--- NOTE | 2024-10-17 08:35 | ECG_ITS ---
Test Reason : chest pain Blood Pressure : */* mmHG Vent. Rate : 109 BPM Atrial Rate : * BPM P-R Int : * ms QRS Dur : 160 ms QT Int : 450 ms P-R-T Axes : * -66 97 degrees QTcB Int : 606 ms Wide QRS rhythm Left axis deviation Left bundle branch block Abnormal ECG When compared with ECG of 18-Feb-2023 20:34, Wide QRS rhythm has replaced Sinus rhythm Referred By: Pepito Souza Electronically Signed By:
[2024-10-17 08:37] LABS: Glucose, Whole Blood 102 mg/dL (60-115)
--- NOTE | 2024-10-17 08:51 | ED.AMS ---
HPI - Altered Mental Status General Chief Complaint: Altered Mental Status Stated Complaint: lethargic lt droop facial Time Seen by Provider: 10/17/24 08:32 Source: EMS Mode of arrival: EMS Limitations: altered mental status History of Present Illness HPI narrative: 79 years old male with history of CAD, hypertension, COPD, left bundle-branch block, multifocal pneumonia presented to the ED with a chief complaint of lethargy, altered mental status. 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 He was found hypotensive and hypoxic by the EMS. This point family is not available I called the [id number] no answer MD complaint: altered mental status and decreased responsiveness Onset (ago): unknown Severity: moderate Associated symptoms: other (Weakness malaise) Related Data Home Medications ?Medication ?Instructions ?Recorded ?Confirmed albuterol sulfate 90 mcg/actuation 1 puff inhalation Q6H PRN asthma 04/24/24 10/17/24 aerosol inhaler cyanocobalamin (vitamin B-12) 1,000 mcg PO DAILY 04/24/24 10/17/24 1,000 mcg tablet amiodarone 200 mg tablet 200 mg PO DAILY 04/28/24 10/17/24 albuterol sulfate 2.5 mg/3 mL 2.5 mg inhalation Q8H PRN 06/13/24 10/17/24 (0.083 %) solution for nebulization Shortness Of Breath Or Wheezing clopidogrel 75 mg tablet 75 mg PO DAILY 10/05/24 10/17/24 ferrous sulfate 325 mg (65 mg 325 mg PO DAILY 10/05/24 10/17/24 iron) tablet furosemide 40 mg tablet 40 mg PO DAILY 10/05/24 10/17/24 metoprolol succinate 50 mg 50 mg PO DAILY 10/05/24 10/17/24 tablet,extended release 24 hr levothyroxine 25 mcg capsule 25 mcg PO DAILY@0600 10/17/24 10/17/24 Previous Rx's ?Medication ?Instructions ?Recorded aspirin 81 mg tablet,delayed 81 mg PO DAILY #30 tabs 10/07/24 release atorvastatin 20 mg tablet 20 mg PO BEDTIME #30 tabs 10/07/24 fluticasone fur. 200 mcg-umeclid 1 inh inhalation DAILY #60 ea 10/07/24 62.5 mcg-vilant 25 mcg inhalat.powder (Trelegy Ellipta) Allergies Allergy/AdvReac Type Severity Reaction Status Date / Time No Known Allergies (No Known Allergy Unverified 10/17/24 09:00 Allergies*) Review of Systems Review of Systems: Yes Unobtainable due to mental status [facility] Past Medical History [facility] Narrative: Hypertension, CAD, hypercholesterolemia, right bundle-branch block by EKG Medical History COPD (chronic obstructive pulmonary disease) Polycythemia vera Leukocytosis Polycythemia Fracture High cholesterol HTN (hypertension) Heart attack Surgical History S/P angiogram of extremity Hx of rotator cuff surgery H/O arthroscopy of shoulder Family History Family History Daughter Aortic aneurysm Social History Social History Household Members: Family Housing: House Do you presently have visiting nurse or other home services: Yes (PT and visiting nurse) Unable to assess alcohol history related to: Unknown Patient Tobacco Use Status: Former Tobacco user Tobacco use type: Cigarette Cigarette Packs Per Day: 1 Second Hand Smoke Exposure: No Advance Directives Date on File: 05/01/24 service: No Physical Exam ED Exam Exam: Ill appearing tachypneic hypodense Vital Signs: Vital Signs - 24 hr 10/17/24 08:42 10/17/24 09:15 10/17/24 09:55 Temperature 101.3 F H 100.8 F H 100.9 F H Pulse Rate 109 H 68 71 Respiratory Rate 22 H 25 H 22 H Blood Pressure 99/54 L 82/60 L 105/49 L Pulse Oximetry 94 94 95 Oxygen Delivery Method Oxymask Oxymask Oxymask Oxygen Flow Rate 6 6 10/17/24 10:21 10/17/24 10:21 10/17/24 11:19 Temperature 100.2 F 99.9 F Pulse Rate 71 66 94 Respiratory Rate 24 H 21 H Blood Pressure 107/72 95/56 L 65/37 L Pulse Oximetry 93 91 L Oxygen Delivery Method Oxymask Oxymask Oxygen Flow Rate 6 7 10/17/24 11:21 10/17/24 11:21 10/17/24 11:32 Temperature 99.9 F Pulse Rate 99 93 Respiratory Rate Blood Pressure 65/37 L 74/47 L Pulse Oximetry Oxygen Delivery Method Oxygen Flow Rate 10/17/24 11:39 10/17/24 11:51 10/17/24 12:03 Temperature 99.9 F Pulse Rate 92 60 58 Respiratory Rate 23 H Blood Pressure 95/62 97/62 94/59 L Pulse Oximetry 99 Oxygen Delivery Method Oxymask Oxygen Flow Rate 6 BMI result Body Mass Index 24.0 Const General: ill appearing Nutritional Appearance: average body habitus HENMT Other: Dry oral mucosa Head: Yes normal to inspection Face and sinus: Yes normal facial exam Neck Neck: Yes normal visual inspection Chest Chest palpation & inspection: normal inspection of the chest Resp Effort & Inspection: abnormal respiratory pattern Auscultation: rhonchi Cardio Jugular venous distension: no JVD Rate: regular rate Rhythm: regular rhythm GI Inspection: Yes normal to inspection Palpation (GI): Tenderness to palpation present (GI) Skin General skin exam: no rashes or lesions noted and elasticity normal Lesions: no lesions Rashes: no rashes Course Reevaluation(s) Reevaluation #1: Clinical picture consistent with septic shock received 2300 cc of IV fluids his weight is 21 kilos, received an antibiotic broad-spectrum, discussed with the ICU Time: 11:25 Reevaluation #2: Sepsi Focused exam Heart regular rate and rhythm ;lungs decreased breath sounds; skin good capillary refill clinically improved Time: 11:26 Medications Administered Generic Name Dose Route Start Last Admin Trade Name Freq PRN Reason Stop Dose Admin Norepinephrine Bitartrate 8 mg in 250 mls @ 0 mls/hr 10/17/24 11:15 10/17/24 11:32 Levophed IVCONT 0.07 mcg/kg/min .Q0M CEE 9.41 mls/hr Protocol Titration Per Protocol Discontinued Medications Generic Name Dose Route Start Last Admin Trade Name Freq PRN Reason Stop Dose Admin Sodium Chloride 1,000 mls @ 999 mls/hr 10/17/24 08:45 10/17/24 10:21 Ns IVCONT 10/17/24 09:45 Infused .Q1H1M ECE Infusion Piperacillin Sod/Tazobactam 100 mls @ 200 mls/hr 10/17/24 08:58 10/17/24 09:52 Sod 4.5 gm/ Sodium Chloride IV 10/17/24 09:27 Infused ONCE ONE Infusion Vancomycin HCl 1,250 mg/ 250 mls @ 166.667 mls/hr 10/17/24 08:58 10/17/24 09:52 Sodium Chloride IV 10/17/24 10:27 Not Given ONCE ONE Vancomycin HCl 1,000 mg/ 535 mls @ 267.5 mls/hr 10/17/24 09:02 10/17/24 12:15 Vancomycin HCl 750 mg/ Sodium IV 10/17/24 11:01 Infused Chloride ONCE ONE Infusion Sodium Chloride 1,000 mls @ 999 mls/hr 10/17/24 09:30 10/17/24 10:21 Ns IVCONT 10/17/24 10:30 Infused .Q1H1M CEE Infusion Acetaminophen 1,000 mg in 100 mls @ 400 mls/hr 10/17/24 09:31 10/17/24 10:32 Ofirmev IV 10/17/24 09:45 Infused ONCE ONE Infusion Medical Decision Making Medical Decision Making [facility] Narrative: Patient is here with altered high-dose broad differential diagnosis include stroke/head bleed/hypercapnic respiratory failure/dehydration electrolytes abnormality we will do full workup including a CT labs Workup completed clinical picture consistent with septic shock you to bilateral pneumonia received IV fluid 30 cc/kilos, broad-spectrum antibiotic, Levophed, patient was admitted to the intensive care unit in critical condition Differential Diagnosis Differential Diagnoses: The differential diagnosis associated with the presentation includes As above CVA/head bleed/hypercapnic respiratory pain and failure/electrolytes abnormality including hypokalemia hyponatremia hypernatremia Admission/Observation Consideration of admission/observation: Escalation of care including admission/observation considered Consult Healthcare Provider ICU attending Lab Data [facility] Lab Attestation statement: I reviewed the patient's lab results. 10/17/24 09:09 10/17/24 09:09 Labs: Lab Results 10/17/24 10/17/24 10/17/24 Range/Units 08:30 09:09 11:57 WBC 25.5 H (4.8-10.8) X10*3/uL RBC 7.40 H D (4.60-5.80) X10*6/uL Hgb 16.9 D (14.0-18.0) g/dl Hct 54.0 H (42.0-52.0) % MCV 73.0 L (80.0-98.0) fL MCH 22.8 L (27.0-33.0) pg MCHC 31.3 (31.0-36.0) g/dl RDW 24.3 H (11.0-16.0) % Plt Count 121 L D (160-400) X10*3/uL MPV TNP Immature Gran % (Auto) 1.1 H (0.0-0.4) % Neut % (Auto) 86.9 H (45-73) % Lymph % (Auto) 4.2 L (20-40) % Alpine % (Auto) 5.8 (2-11) % Eos % (Auto) 1.7 (0-4) % Baso % (Auto) 0.3 (0-2) % Lymph # (Auto) 1.1 L (1.2-4.9) X10*3/uL Alpine # (Auto) 1.5 H (0.1-1.2) X10*3/uL Eos # (Auto) 0.4 (0.0-0.4) X10*3/uL Baso # (Auto) 0.1 (0.0-0.2) X10*3/uL Abs Immat Gran (auto) 0.27 H (0.00-0.03) X10*3/uL Absolute Neuts (auto) 22.1 H (2.0-8.3) x10*3/uL Absolute Nucleated RBC 0.020 H (0.0-0.012) X10*3/uL Nucleated RBC % (auto) 0.1 (0.0-0.2) /100WBC Smear Tech's Comments VERIFIED Sodium 129 L (135-145) mmol/L Potassium 5.3 H D (3.3-5.1) mmol/L Chloride 94 L (96-108) mmol/L Carbon Dioxide 22 (22-29) mmol/L Anion Gap 18 (12-20) BUN 14 (9-16) mg/dL Creatinine 1.48 H (0.5-1.4) mg/dL Estim Creat Clear Calc 32.7 Estimated GFR 45 POC Glucose 102 (60-115) mg/dL Random Glucose 89 (60-115) mg/dL Lactic Acid 2.6 H* (0.5-2.0) mmol/L Lactic Acid F/U @ 2Hr 3.2 H* (0.5-2.0) mmol/L Calcium 8.7 D (8.4-10.2) mg/dL Total Bilirubin 0.8 (0.0-1.0) mg/dL AST 87 H (5-37) U/L ALT 39 (0-40) U/L Alkaline Phosphatase 96 (39-117) U/L Troponin I High Sens 97.0 H D (<3.5-35.0) ng/L Total Protein 6.8 (6.5-8.0) g/dL Albumin 3.7 (3.5-5.0) g/dL Independent Interpretation I performed an independent interpretation of an: EKG and CT Scan (I reviewed interpreted the CT chest has a multifocal pneumonia, my interpretation of the CT was bilateral pneumonia official report pending) Interpretation: LBBB Independent Historian Clinical information obtained from an independent historian. History obtained from or confirmed by: EMS EMS and son External Record Review External record reviewed: Inpatient record Prescription Management I considered prescription management with: Antibiotic Chronic Conditions Patient?s care impacted by: Other Cardiomyopathy/COPD Critical Care Time Critical Care Time Critical Care Time: Yes Total Critical Care Time: 90 Attestation: IV AB/IV fluids Discharge Plan Discharge Clinical Impression: Multifocal pneumonia, Septic shock Sepsis Qualifiers: Sepsis type: sepsis due to unspecified organism Sepsis acute organ dysfunction status: with acute organ dysfunction Severe sepsis acute organ dysfunction type: acute renal failure Acute renal failure type: unspecified Severe sepsis shock status: with septic shock Qualified Code(s): A41.9 - Sepsis, unspecified organism Patient Disposition: Admitted As Inpatient Interventions: Admission Worksheet (ED) Last Done: 10/17/24 13:11 Discharge Date/Time: 10/17/24 13:14
--- NOTE | 2024-10-17 09:22 | PC.NURSE ---
Primary RN Klaudia assess with this RN as charge nurse about Vanco order, as when she pulls it from the pyxis it has her pulling 1750mg not the ordered 1250mg dose. This RN called pharmacy to verify, per Pharmacy dose was adjusted to 1750mg d/t weight base for starting dose, and they are currently making it now and will bring it down to the ED. Primary nurse made aware. Pharmacy also updated and made aware that the current patient account is not the right patient name//MM #, per registration we are to keep documenting on this account until merged. Pharmacy aware they will be updated if any of the account numbers change.
[2024-10-17 09:28] LABS: Hematocrit 54.0 % (42.0-52.0); Hemoglobin 16.9 g/dl (14.0-18.0); Imm Gran Abs Auto 0.27 X10*3/uL (0.00-0.03); Imm Gran Pct Auto 1.1 % (0.0-0.4); Lymphocytes Absolute Auto 1.1 X10*3/uL (1.2-4.9); MANUAL DIFF FLAG SCAN; Mean Corpuscular HGB Conc 31.3 g/dl (31.0-36.0); Mean Corpuscular Hemoglobin 22.8 pg (27.0-33.0); Mean Corpuscular Volume 73.0 fL (80.0-98.0); NRBC Abs Auto 0.020 X10*3/uL (0.0-0.012); NRBC Pct Auto 0.1 /100WBC (0.0-0.2); PLT CLUMP 1; Red Blood Count 7.40 X10*6/uL (4.60-5.80); SCAN SMEAR FLAG 1
[2024-10-17] MEDS: vancomycin HCL 1,000 MG, vancomycin HCL 750 MG in 0.9 % Sodium Chloride 500 ML 267.5 MG IV (09:32)
[2024-10-17 09:49] LABS: Platelet Count 121 X10*3/uL (160-400); White Blood Count 25.5 X10*3/uL (4.8-10.8)
[2024-10-17 10:05] LABS: Alanine Aminotransferase 39 U/L (0-40); Albumin Level 3.7 g/dL (3.5-5.0); Alkaline Phosphatase 96 U/L (39-117); Anion Gap 18 (12-20); Aspartate Amino Transferase 87 U/L (5-37); Blood Urea Nitrogen 14 mg/dL (9-16); Calcium 8.7 mg/dL (8.4-10.2); Carbon Dioxide 22 mmol/L (22-29); Chloride 94 mmol/L (96-108); Creatinine Clr Calc Pharmacy 32.7; Estimated Glomerular Filt Rate 45; Potassium 5.3 mmol/L (3.3-5.1); Sodium 129 mmol/L (135-145); Total Protein 6.8 g/dL (6.5-8.0)
[2024-10-17 10:13] LABS: Troponin-I High Sensitivity 97.0 ng/L (<3.5-35.0)
--- NOTE | 2024-10-17 10:23 | PC.NURSE ---
Addendum entered by Klaudia Ramirez RN 10/17/24 11:49: Pt with rectal temp probe in place, bilateral IV's and still requiring 6L O2 via oxymask Original Note: Pt BIBA for AMS/lethargy and left sided facial droop. Provider and RN met pt on arrival. noted to be hypoxic and hypotensive on arrival. IV access obtained and IVF started and pt placed on 6L O2 via oxymask which improved O2 sat into 92-95% range. MD aware and pt brought to CT. Labs and EKG done, provider at bedside and u/s preformed by . Pt also noted to be febrile. Medicated per APR. Pt more responsive, A/O x 1-2 and answering yes/no questions.
--- NOTE | 2024-10-17 11:18 | PC.NURSE ---
This RN as charge alerted MD of BP sys still 70-80s, post 2300 ivf given. At this time provider to order norepi, second line placed, at this time, primary RN aware.
[2024-10-17 11:24] LABS: Reflex Lactate? Lactic Acid Added
--- NOTE | 2024-10-17 11:40 | PM.CCHP ---
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 No much history is available as patient's is not picking up the phone, patient is confused and is Monegasque speaking only Patient was hypotensive, received sepsis bolus fluids still remained hypotensive so started on Levophed support and MICU consulted for admission Review of Systems Review of Systems: Unable to obtain as patient is confused FOR[facility]LY [facility], [facility] Past Medical History Medical History COPD (chronic obstructive pulmonary disease) Polycythemia vera Leukocytosis Polycythemia Fracture High cholesterol HTN (hypertension) Heart attack Family History Family History Daughter Aortic aneurysm Surgical History Surgical History S/P angiogram of extremity Hx of rotator cuff surgery H/O arthroscopy of shoulder Social History Social History Household Members: Family Housing: House Do you presently have visiting nurse or other home services: Yes (PT and visiting nurse) Unable to assess alcohol history related to: Unknown Patient Tobacco Use Status: Former Tobacco user Tobacco use type: Cigarette Cigarette Packs Per Day: 1 Second Hand Smoke Exposure: No Advance Directives: Yes Advance Directives on File: Yes Advance Directives Date on File: 05/01/24 service: No Meds Allergies Allergy/AdvReac Type Severity Reaction Status Date / Time No Known Allergies (No Known Allergy Unverified 10/17/24 09:00 Allergies*) Active Medications: Current Medications Norepinephrine Bitartrate (Levophed) 8 mg in 250 mls @ 0 mls/hr IVCONT .Q0M [facility]; Protocol Last Titration: 10/17/24 11:32 Dose: 0.07 mcg/kg/min, 9.41 mls/hr Home Medications ?Medication ?Instructions ?Recorded ?Confirmed ?Last Taken ?Type albuterol sulfate 90 mcg/actuation 1 puff inhalation Q6H PRN asthma 04/24/24 10/17/24 Unknown History aerosol inhaler cyanocobalamin (vitamin B-12) 1,000 mcg PO DAILY 04/24/24 10/17/24 10/04/24 History 1,000 mcg tablet amiodarone 200 mg tablet 200 mg PO DAILY 04/28/24 10/17/24 10/04/24 History albuterol sulfate 2.5 mg/3 mL 2.5 mg inhalation Q8H PRN 06/13/24 10/17/24 Unknown History (0.083 %) solution for nebulization Shortness Of Breath Or Wheezing clopidogrel 75 mg tablet 75 mg PO DAILY 10/05/24 10/17/24 10/04/24 History ferrous sulfate 325 mg (65 mg 325 mg PO DAILY 10/05/24 10/17/24 10/04/24 History iron) tablet furosemide 40 mg tablet 40 mg PO DAILY 10/05/24 10/17/24 10/04/24 History metoprolol succinate 50 mg 50 mg PO DAILY 10/05/24 10/17/24 10/04/24 History tablet,extended release 24 hr levothyroxine 25 mcg capsule 25 mcg PO DAILY@0600 10/17/24 10/17/24 Unknown History Physical Exam Vital Signs: Vital Signs: Last Vital Signs Temp 99.9 F 10/17/24 11:21 Pulse 92 10/17/24 11:39 Resp 21 H 10/17/24 11:19 BP 95/62 10/17/24 11:39 Pulse Ox 91 L 10/17/24 11:19 O2 Del Method Oxymask 10/17/24 11:19 O2 Flow Rate 7 10/17/24 11:19 Oxygen Flow Rate 6 10/17/24 08:42 BMI result Body Mass Index 24.0 General: Elderly male in mild to moderate acute distress Nutritional Appearance: well nourished and overweight Eyes: appearance normal, both eyes and all related structures; Alignment and Position: alignment normal and position normal Neck: No lymphadenopathy, no thyromegaly Resp: bilateral air entry equal, bilateral wheeze heard Cardio: Regular rate, regular rhythm; Heart sounds: S1 normal heart sound present and S2 normal heart sound present GI: soft, nontender, no guarding, no hepatosplenomegaly : bladder normal to inspection, bladder normal to palpation, no renal angle tenderness Skin: no rashes or lesions noted and elasticity normal Neuro: Confused, nods his head yes or no, moves all extremities Results Labs 10/17/24 09:09 10/17/24 09:09 Labs: Laboratory Results - last 24 hr 10/17/24 10/17/24 08:30 09:09 MCV 73.0 L MCH 22.8 L MCHC 31.3 RDW 24.3 H Plt Count 121 L D MPV TNP Immature Gran % (Auto) 1.1 H Neut % (Auto) 86.9 H Lymph % (Auto) 4.2 L [place] % (Auto) 5.8 Eos % (Auto) 1.7 Baso % (Auto) 0.3 Lymph # (Auto) 1.1 L [place] # (Auto) 1.5 H Eos # (Auto) 0.4 Baso # (Auto) 0.1 Abs Immat Gran (auto) 0.27 H Absolute Neuts (auto) 22.1 H Absolute Nucleated RBC 0.020 H Nucleated RBC % (auto) 0.1 Smear Tech's Comments VERIFIED Anion Gap 18 Estim Creat Clear Calc 32.7 Estimated GFR 45 POC Glucose 102 Random Glucose 89 Lactic Acid 2.6 H* Calcium 8.7 D Total Bilirubin 0.8 AST 87 H ALT 39 Alkaline Phosphatase 96 Total Protein 6.8 Albumin 3.7 Assessment and Plan (1) Septic shock: Status: Acute (2) Acute respiratory failure with hypoxia: Status: Acute (3) Multifocal pneumonia: Status: Acute (4) COPD (chronic obstructive pulmonary disease): Status: Acute (5) Acute encephalopathy: Status: Acute Plan Neuro: Acute encephalopathy possibly due to metabolic encephalopathy CT head was done, report pending Close neurological status monitoring in the ICU every hour Cardiac: Septic Shock: Possibly secondary to bilateral pneumonia in combination with hypovolemic shock. Bedside echo showing small and collapsing IVC is with respiration. On Levophed support, titrate Levophed to keep map above 65 mm Hg Atrial fibrillation/CAD/peripheral artery disease: Continue aspirin, Plavix and statin On amiodarone for atrial fibrillation, not on anticoagulation due to excessive bleeding in the past with hematoma in the arms and neck Respiratory: Acute on chronic hypoxemic respiratory failure due to bilateral pneumonia on top of underlying COPD Currently on 5 L/min simple mask for oxygen GI: We will keep him NPO except for medications Renal: Acute kidney injury possibly secondary to hypovolemia Baseline creatinine normal, creatinine today is 1.8 We will closely monitor I's and O's Avoid nephrotoxic medications Heme: Chronic anemia, closely monitor H&H, transfuse for hemoglobin less than 7 grams/deciliter Endocrine: Blood sugars under control Sliding scale insulin as needed Infectious disease: We will send pancultures We will workup for pneumonia We will start on empiric Zosyn, if MRSA nares is positive we will add vancomycin Musculoskeletal: Decubitus ulcer prevention protocol Lines: Peripheral Prophylaxis: Heparin, pantoprazole
--- NOTE | 2024-10-17 12:14 | PHA.MEDREC ---
Pharmacy Consult ? Medication Reconciliation Pharmacy has completed the medication reconciliation. Utilized claim history as well as recent discharge paperwork. Doxycycline and cefuroxime should be completed.
--- NOTE | 2024-10-17 12:17 | PC.NURSE ---
Pt without urine output since arrival, bladder scanned for 352. MD Souza aware. Langley cath placed per MD order
[2024-10-17 12:25] LABS: ~Lactic Acid-LAB USE ONLY 3.2 mmol/L (0.5-2.0)
[2024-10-17 12:50] LABS: Appearance Urine Clear; Glucose Urine UA Negative (Negative); PH 8.0 (5.0-9.0); Specific Gravity - Urine 1.015 (1.005-1.025); UMIC TRIGGER UACC YES
[2024-10-17 13:04] LABS: IDNOW Serial# 6674DD1D; Influenza B2 Negative (Negative)
--- NOTE | 2024-10-17 13:11 | PC.NURSE ---
Report given to LEGAL RECRUITER, pt transported with RN and food science technician to ICU
[2024-10-17 13:51] LABS: Chlamydia pneumoniae PCR Not Detected (Not Detect.); Coronavirus 229E PCR Not Detected (Not Detect.); Coronavirus HKU1 PCR Not Detected (Not Detect.); Coronavirus NL63 PCR Not Detected (Not Detect.); Coronavirus OC43 PCR Not Detected (Not Detect.); RSV PCR Not Detected (Not Detect.); Rhino/Enterovirus PCR Not Detected (Not Detect.)
[2024-10-17 14:01] LABS: Reflex Lactate? 2 Y
[2024-10-17 14:05] LABS: MRSA Nasal PCR NEGATIVE (Negative); SA Nasal PCR NEGATIVE (Negative)
[2024-10-17 14:33] LABS: Influenza A H1 PCR Not Detected (Not Detect.); Influenza A H1-2009 PCR Not Detected (Not Detect.); Influenza A H3 PCR Not Detected (Not Detect.); SARS-CoV-2 PCR Not Detected (Not Detect.)
[2024-10-17 15:43] LABS: ~Lactic Acid-LAB USE ONLY 3.1 mmol/L (0.5-2.0)
[2024-10-17] MEDS: Aspirin Enteric Coated 81 MG TABLET.DR PO (16:08)
[2024-10-17] MEDS: Albumin Human 25 % 100 ML IV (16:09)
[2024-10-17] MEDS: Albuterol/Iprat 2.5/0.5MG 3 ML AMPUL.NEB INHALE (16:43)
--- NOTE | 2024-10-17 19:05 | ECG_ITS ---
Test Reason : EKG changes Blood Pressure : */* mmHG Vent. Rate : 66 BPM Atrial Rate : 66 BPM P-R Int : 252 ms QRS Dur : 130 ms QT Int : 608 ms P-R-T Axes : 35 -81 98 degrees QTcB Int : 637 ms Sinus rhythm with 1st degree A-V block Left axis deviation Non-specific intra-ventricular conduction block Septal infarct , age undetermined Possible Lateral infarct (cited on or before 05-Oct-2024) Abnormal ECG When compared with ECG of 05-Oct-2024 07:26, Criteria for Inferior infarct are no longer Present Referred By: Markos Li Electronically Signed By: CHRISTINA JANE
[2024-10-17] MEDS: Magnesium Sulfate/H2O 2 GM/50 ML PIGGYBACK IV (19:10)
--- NOTE | 2024-10-17 19:21 | PC.NURSE ---
Assumed Care @ 0700 Neuro:? Drowsy, follows simple commands, Flaccid extremities (Passive ROM performed) Respiratory: Currently on RA. Rhoncurous Bl throughout. Deep suction x2.? Cardiac: Afib on tele, Levophed 2x gtt-per APR. GI/: LBM 10/17, NPO; Anuric? Skin: Impaired skin integrity- see skin assessment (reposition maintained) Temp: Afebrile ?Lines: HD cath L IJ, peripheral IV x2.
--- NOTE | 2024-10-17 19:29 | PC.NURSE ---
Assumed Care @ 0700 Neuro:? Drowsy, follows simple commands, Flaccid extremities (Passive ROM performed) Respiratory: Currently on RA. Rhoncurous Bl throughout. Deep suction x2.? Cardiac: Afib on tele, Levophed 2x gtt-per APR. GI/: LBM 10/17, NPO; Anuric? Skin: Impaired skin integrity- see skin assessment (reposition maintained) Temp: Afebrile Lines: HD cath L IJ, peripheral IV x2.
[2024-10-17 19:55] LABS: Hematocrit 40.8 % (42.0-52.0); Hemoglobin 13.0 g/dl (14.0-18.0); Mean Corpuscular HGB Conc 31.9 g/dl (31.0-36.0); Mean Corpuscular Hemoglobin 23.3 pg (27.0-33.0); Mean Corpuscular Volume 73.1 fL (80.0-98.0); NRBC Abs Auto 0.000 X10*3/uL (0.0-0.012); NRBC Pct Auto 0.0 /100WBC (0.0-0.2); PLT CLUMP 1; Red Blood Count 5.58 X10*6/uL (4.60-5.80)
[2024-10-17 19:56] LABS: PLT ABN DIST 1; White Blood Count 23.0 X10*3/uL (4.8-10.8)
[2024-10-17 19:57] LABS: Platelet Count 107 X10*3/uL (160-400)
--- NOTE | 2024-10-17 19:57 | PC.NURSE ---
Patient arrived to unit at approximately 1315 this afternoon via stretcher, slid to bed, alert but confused to time and situation, denied pain or discomfort, see admission assessment. redness to scrotal area noted barrier applied, foam dressing to heels and coccyx applied preventively, patient noted to have 7 beat run of Vtach x3, MD made aware, at change of shift, during safestart after boost in bed patient went into Vtach with rate up to 188bpm, pads applied patient responsive during event, denied pain or discomfort, TECHNOLOGY DEVELOPMENT INTERN called and back to SR without intervention, multiple orders received and completed per on coming night RN.
[2024-10-17] MEDS: Albumin Human 25 % 100 ML 133.33 ML IV ×2 (20:06→20:54)
[2024-10-17 20:19] LABS: Alanine Aminotransferase 49 U/L (0-40); Albumin Level 3.0 g/dL (3.5-5.0); Alkaline Phosphatase 72 U/L (39-117); Anion Gap 17 (12-20); Aspartate Amino Transferase 106 U/L (5-37); Blood Urea Nitrogen 13 mg/dL (9-16); Calcium 7.8 mg/dL (8.4-10.2); Carbon Dioxide 16 mmol/L (22-29); Chloride 102 mmol/L (96-108); Creatinine Clr Calc Pharmacy 38.1; Estimated Glomerular Filt Rate 53; Magnesium 2.5 mg/dL (1.6-2.6); Potassium 4.6 mmol/L (3.3-5.1); Sodium 130 mmol/L (135-145); Total Protein 6.0 g/dL (6.5-8.0)
[2024-10-17 20:25] LABS: Troponin-I High Sensitivity 57.5 ng/L (<3.5-35.0)
[2024-10-17 21:51] LABS: Reflex Lactate? Lactic Acid Added
[2024-10-17 22:30] LABS: ~Lactic Acid-LAB USE ONLY 2.8 mmol/L (0.5-2.0)
[2024-10-18] VITALS (28 sets, daily range): BP systolic 98–136; BP diastolic 46–82; PULSE 67–109; RESP 15–28; TEMP 36.2–37.7; O2SAT 88–99; BMI 24.3
[2024-10-18 00:11] LABS: Reflex Lactate? 2 Y
[2024-10-18 01:27] LABS: ~Lactic Acid-LAB USE ONLY 1.4 mmol/L (0.5-2.0)
[2024-10-18 04:45] LABS: VBG HCO3 24 mmol/L (22-26); VBG O2 % Saturation 57.0 %
[2024-10-18 04:47] LABS: Venous Blood Gas Refer to POC result
[2024-10-18 05:21] LABS: Hemoglobin 12.8 g/dl (14.0-18.0); Imm Gran Pct Auto 0.9 % (0.0-0.4); Lymphocytes Absolute Auto 0.7 X10*3/uL (1.2-4.9); MANUAL DIFF FLAG SCAN; Mean Corpuscular Volume 74.8 fL (80.0-98.0); NRBC Abs Auto 0.000 X10*3/uL (0.0-0.012); NRBC Pct Auto 0.0 /100WBC (0.0-0.2); SCAN SMEAR FLAG 1
[2024-10-18 05:24] LABS: Hematocrit 41.8 % (42.0-52.0); Imm Gran Abs Auto 0.18 X10*3/uL (0.00-0.03); Mean Corpuscular HGB Conc 30.6 g/dl (31.0-36.0); Mean Corpuscular Hemoglobin 22.9 pg (27.0-33.0); Platelet Count 137 X10*3/uL (160-400); Red Blood Count 5.59 X10*6/uL (4.60-5.80); White Blood Count 20.8 X10*3/uL (4.8-10.8)
[2024-10-18 05:40] LABS: Alanine Aminotransferase 51 U/L (0-40); Albumin Level 3.8 g/dL (3.5-5.0); Alkaline Phosphatase 61 U/L (39-117); Anion Gap 14 (12-20); Aspartate Amino Transferase 97 U/L (5-37); Blood Urea Nitrogen 13 mg/dL (9-16); Calcium 7.9 mg/dL (8.4-10.2); Carbon Dioxide 22 mmol/L (22-29); Chloride 104 mmol/L (96-108); Creatinine Clr Calc Pharmacy 38.4; Estimated Glomerular Filt Rate 54; Magnesium 2.5 mg/dL (1.6-2.6); Potassium 4.3 mmol/L (3.3-5.1); Sodium 136 mmol/L (135-145); Total Protein 6.0 g/dL (6.5-8.0)
[2024-10-18 05:53] LABS: PLT ABN DIST 1
--- NOTE | 2024-10-18 06:31 | PC.NURSE ---
Assumed care at 1900. During safe-start/bedside shift report, patient went into [facility]. No pulse lost, patient pale but tracking and answering questions, denied chest pain. EMERGENCY DEPARTMENT COORDINATOR called, pacer pads applied, patient attached to Zoll. MICHAEL Garcia called to bedside by this RN. Per Michael Garcia, 2g Magnesium sulfate IV administered, Levophed gtt stopped and switched?to phenylephrine gtt, see APR. Patient returned to Afib after 2 minutes in VT, MICHAEL Garcia aware. Upon further assessment, patient is A&O x2, alert to self and place, vague to time and situation. Responds appropriately, able to make needs known, somewhat drowsy. Afib on tele, occasional PVCs and BBB noted-- see tele assessment. Phenylephrine gtt running per APR for MAP goal >65. Lung sounds slightly diminished, 1L oxymask for O2 goal 88%-92%. Patient with intermittent wet cough, unable to expectorate any secretions for sputum culture. Abdomen?large and round, hypoactive bowel sounds x4. Langley catheter in place and patent, draining yellow urine with sediment. Skin overall warm and dry. Scattered bruising throughout, blanchable redness to buttocks, and maceration to perineal area. Barrier cream and preventative foams applied as needed. Patient repositioned Q2HR as tolerated, bed locked in lowest possible position, patient's son updated by this RN via phone.?
[2024-10-18] MEDS: Albuterol/Iprat 2.5/0.5MG 3 ML AMPUL.NEB INHALE ×4 (07:30→19:45)
--- NOTE | 2024-10-18 08:38 | P.PNCC_ITS ---
Subjective Subjective Date of Service: 10/18/24 Critical Care Time (minutes): 60 Physical Exam 2 Vital Signs: Vital Signs: Last Vital Signs Temp 99.7 F 10/18/24 07:00 Pulse 77 10/18/24 07:34 Resp 16 10/18/24 07:34 BP 124/75 10/18/24 07:00 Pulse Ox 99 10/18/24 07:00 O2 Del Method Oxymask 10/18/24 07:00 O2 Flow Rate 1 10/18/24 07:00 Oxygen Flow Rate 2 10/17/24 12:13 BMI result Body Mass Index 24.3 Const: General: cooperative, healthy appearing, comfortable, no acute distress and well developed Orientation/consciousness: oriented to person, oriented to place and oriented to time HEENT: Head: Yes normal to inspection, Yes No palpable skull fracture present, Yes normocephalic and Yes atraumatic Eyes: General: appearance normal, both eyes and all related structures Neck: Neck: Yes normal visual inspection, Yes full ROM, Yes no meningeal signs, Yes trachea midline and Yes supple Chest: Chest palpation & inspection: normal inspection of the chest Resp: Other: some appreciable rhonchi, no appreciable overt rales, wheezing Effort & Inspection: normal respiratory effort Cardio: Rate: regular rate Rhythm: regular rhythm GI: Other: soft, no appreciable tenderness to palpation throughout Inspection: Yes normal to inspection, No Abdominal wall edema and No distended Skin: General skin exam: no rashes or lesions noted Neuro: General: oriented to person, oriented to place, oriented to time, tone normal, moves all extremities, no meningeal signs and no focal motor deficits Extrem: Other: appreciable 2+ pitting edema to bilateral shins Psych: Appearance: grossly normal Objective Data Labs 10/18/24 04:42 10/18/24 04:42 Labs: Laboratory Results - last 24 hr 10/17/24 10/17/24 10/17/24 09:09 11:57 12:39 WBC 25.5 H RBC 7.40 H D Hgb 16.9 D Hct 54.0 H MCV 73.0 L MCH 22.8 L MCHC 31.3 RDW 24.3 H Plt Count 121 L D MPV TNP Immature Gran % (Auto) 1.1 H Neut % (Auto) 86.9 H Lymph % (Auto) 4.2 L [place] % (Auto) 5.8 Eos % (Auto) 1.7 Baso % (Auto) 0.3 Lymph # (Auto) 1.1 L [place] # (Auto) 1.5 H Eos # (Auto) 0.4 Baso # (Auto) 0.1 Abs Immat Gran (auto) 0.27 H Absolute Neuts (auto) 22.1 H Absolute Nucleated RBC 0.020 H Nucleated RBC % (auto) 0.1 Smear Tech's Comments VERIFIED VBG pH VBG pCO2 VBG pO2 VBG HCO3 VBG O2 Saturation VBG Base Excess Sodium 129 L Potassium 5.3 H D Chloride 94 L Carbon Dioxide 22 Anion Gap 18 BUN 14 Creatinine 1.48 H Estim Creat Clear Calc 32.7 Estimated GFR 45 Random Glucose 89 Lactic Acid 2.6 H* Lactic Acid F/U @ 2Hr 3.2 H* Lactic Acid F/U @ 4Hr Calcium 8.7 D Phosphorus Magnesium Total Bilirubin 0.8 AST 87 H ALT 39 Alkaline Phosphatase 96 Troponin I High Sens 97.0 H D C-Reactive Protein Total Protein 6.8 Albumin 3.7 Urine Color Yellow Urine Appearance Clear Urine pH 8.0 Ur Specific [place] 1.015 Urine Protein Trace Urine Glucose (UA) Negative Urine Ketones Negative Urine Blood Trace H Urine Nitrite Negative Ur Leukocyte Esterase Trace H Urine RBC 11-20 H Urine WBC 0-5 Ur Squamous Epith Cells 0-2 Urine Bacteria None Seen Hyaline Casts 3-5 Nasal Screen MRSA (PCR) NEGATIVE Nasal S. aureus Screen NEGATIVE Nasal MRSA/S.aureus Interp SEE NOTE Respiratory Panel [place] See Note Adenovirus (Rapid PCR) Not Detected B.pert (TEM-PCR) Not Detected B.parapertussis DNA PCR Not Detected C. pneumoniae DNA (PCR) Not Detected Coronavirus OC43 (PCR) Not Detected Coronavirus HKU1 (PCR) Not Detected Coronavirus 229E (PCR) Not Detected Coronavirus NL63 (PCR) Not Detected Human Metapneumovir PCR Not Detected Influenza Type A (SHAYLA) Negative Influenza A (RT-PCR) Not Detected Influenza A (H1) PCR Not Detected Influ A (H1/09) PCR Not Detected Influenza A (H3) PCR Not Detected Influenza Type B (SHAYLA) Negative Influenza B (RT-PCR) Not Detected Influenza A & B Note See Note M. pneumoniae (PCR) Not Detected Parainfluenza 1 (PCR) Not Detected Parainfluenza 2 (PCR) Not Detected Parainfluenza 3 (PCR) Not Detected Parainfluenza 4 (PCR) Not Detected RSV (PCR) Not Detected Entero/Rhino (PCR) Not Detected SARS-CoV-2 RNA (RT-PCR) Not Detected 10/17/24 10/17/24 10/17/24 13:36 15:13 19:46 WBC 23.0 H RBC 5.58 D Hgb 13.0 L D Hct 40.8 L D MCV 73.1 L MCH 23.3 L MCHC 31.9 RDW 23.4 H Plt Count 107 L MPV TNP Immature Gran % (Auto) Neut % (Auto) Lymph % (Auto) [place] % (Auto) Eos % (Auto) Baso % (Auto) Lymph # (Auto) [place] # (Auto) Eos # (Auto) Baso # (Auto) Abs Immat Gran (auto) Absolute Neuts (auto) Absolute Nucleated RBC 0.000 Nucleated RBC % (auto) 0.0 Smear Tech's Comments VBG pH VBG pCO2 VBG pO2 VBG HCO3 VBG O2 Saturation VBG Base Excess Sodium 130 L Potassium 4.6 Chloride 102 Carbon Dioxide 16 L Anion Gap 17 BUN 13 Creatinine 1.27 Estim Creat Clear Calc 38.1 Estimated GFR 53 Random Glucose 103 Lactic Acid 2.1 H* Lactic Acid F/U @ 2Hr Lactic Acid F/U @ 4Hr 3.1 H* Calcium 7.8 L D Phosphorus 3.2 3.6 Magnesium 2.5 Total Bilirubin 0.8 AST 106 H ALT 49 H Alkaline Phosphatase 72 Troponin I High Sens 57.5 H C-Reactive Protein 8.29 H Total Protein 6.0 L Albumin 3.0 L Urine Color Urine Appearance Urine pH Ur Specific [place] Urine Protein Urine Glucose (UA) Urine Ketones Urine Blood Urine Nitrite Ur Leukocyte Esterase Urine RBC Urine WBC Ur Squamous Epith Cells Urine Bacteria Hyaline Casts Nasal Screen MRSA (PCR) Nasal S. aureus Screen Nasal MRSA/S.aureus Interp Respiratory Panel [place] Adenovirus (Rapid PCR) B.pert (TEM-PCR) B.parapertussis DNA PCR C. pneumoniae DNA (PCR) Coronavirus OC43 (PCR) Coronavirus HKU1 (PCR) Coronavirus 229E (PCR) Coronavirus NL63 (PCR) Human Metapneumovir PCR Influenza Type A (SHAYLA) Influenza A (RT-PCR) Influenza A (H1) PCR Influ A (H1/09) PCR Influenza A (H3) PCR Influenza Type B (SHAYLA) Influenza B (RT-PCR) Influenza A & B Note M. pneumoniae (PCR) Parainfluenza 1 (PCR) Parainfluenza 2 (PCR) Parainfluenza 3 (PCR) Parainfluenza 4 (PCR) RSV (PCR) Entero/Rhino (PCR) SARS-CoV-2 RNA (RT-PCR) 10/17/24 10/18/24 10/18/24 22:06 00:24 04:42 WBC 20.8 H RBC 5.59 Hgb 12.8 L Hct 41.8 L MCV 74.8 L MCH 22.9 L MCHC 30.6 L RDW 23.8 H Plt Count 137 L D MPV Not Reportable Immature Gran % (Auto) 0.9 H Neut % (Auto) 88.0 H Lymph % (Auto) 3.1 L [place] % (Auto) 5.7 Eos % (Auto) 2.0 Baso % (Auto) 0.3 Lymph # (Auto) 0.7 L [place] # (Auto) 1.2 Eos # (Auto) 0.4 Baso # (Auto) 0.1 Abs Immat Gran (auto) 0.18 H Absolute Neuts (auto) 18.3 H Absolute Nucleated RBC 0.000 Nucleated RBC % (auto) 0.0 Smear Tech's Comments VERIFIED VBG pH 7.42 VBG pCO2 36 VBG pO2 39 VBG HCO3 24 VBG O2 Saturation 57.0 VBG Base Excess 0.3 Sodium 136 Potassium 4.3 Chloride 104 Carbon Dioxide 22 Anion Gap 14 BUN 13 Creatinine 1.26 Estim Creat Clear Calc 38.4 Estimated GFR 54 Random Glucose 84 Lactic Acid Lactic Acid F/U @ 2Hr 2.8 H* Lactic Acid F/U @ 4Hr 1.4 Calcium 7.9 L Phosphorus 3.1 Magnesium 2.5 Total Bilirubin 1.0 AST 97 H ALT 51 H Alkaline Phosphatase 61 Troponin I High Sens C-Reactive Protein Total Protein 6.0 L Albumin 3.8 Urine Color Urine Appearance Urine pH Ur Specific [place] Urine Protein Urine Glucose (UA) Urine Ketones Urine Blood Urine Nitrite Ur Leukocyte Esterase Urine RBC Urine WBC Ur Squamous Epith Cells Urine Bacteria Hyaline Casts Nasal Screen MRSA (PCR) Nasal S. aureus Screen Nasal MRSA/S.aureus Interp Respiratory Panel [place] Adenovirus (Rapid PCR) B.pert (TEM-PCR) B.parapertussis DNA PCR C. pneumoniae DNA (PCR) Coronavirus OC43 (PCR) Coronavirus HKU1 (PCR) Coronavirus 229E (PCR) Coronavirus NL63 (PCR) Human Metapneumovir PCR Influenza Type A (SHAYLA) Influenza A (RT-PCR) Influenza A (H1) PCR Influ A (H1/09) PCR Influenza A (H3) PCR Influenza Type B (SHAYLA) Influenza B (RT-PCR) Influenza A & B Note M. pneumoniae (PCR) Parainfluenza 1 (PCR) Parainfluenza 2 (PCR) Parainfluenza 3 (PCR) Parainfluenza 4 (PCR) RSV (PCR) Entero/Rhino (PCR) SARS-CoV-2 RNA (RT-PCR) Progress Note: A&P Assessment and plan (1) Acute and chronic respiratory failure: Status: Acute (2) Pneumonia: Status: Acute (3) COPD (chronic obstructive pulmonary disease): Status: Acute (4) Septic shock: Status: Acute Plan Patient is a 89 Y M w/ hypertension, hyperlipidemia, c/b coronary artery disease, myocardial infarction, c/b atrial fibrillation, COPD c/b chronic hypoxic respiratory failure, on home 3 L, and myeloproliferative disorder, presenting to ED on 10/17 w/ encephalopathy, found to be hypotensive, work-up suggestive of pneumonia N: encephalopathy, likely toxic-metabolic; to follow-up CT H read CV: shock, likely septic, norepinephrine gtt, wean as tolerated; CAD on home aspirin, clopidogrel; atrial fibrillation on home amiodarone R: acute on chronic hypoxic respiratory failure d/t pneumonia, COPD, on 3 L, wean as tolerated GI: NPO while encephalopathic, advance diet as tolerated : acute renal insufficiency, to monitor renal indices H: no acute issues E: to monitor hyper-/hypo-glycemia; hypothyroidism on home levothyroxine ID: c/f septic shock d/t pneumonia, empiric zosyn; to follow-up CT C/A/P read S: daily updates given to son Quality Stroke Does the patient have a stroke diagnosis?: No VTE Prior VTE?: No VTE Risk Level:: Medical - moderate - high VTE Device Contraindication: N/A - Device Ordered VTE Drug Contraindication: N/A - Med Ordered
[2024-10-18 09:26] LABS: INR Whole Blood 1.4 (0.9-1.1); Prothrombin Time Whole Blood 16.4 sec (11.1-13.5)
[2024-10-18] MEDS: Aspirin Enteric Coated 81 MG TABLET.DR PO (09:53)
--- NOTE | 2024-10-18 17:19 | PC.NURSE ---
Assumed care of patient 0700. Patient is A+Ox3, able to state year is 2024 but not the correct month. Patient is drowsy and has shortness of breath with activity. IV fluids discontinued per MD for course crackles in lung field bases. Patient remains off of vasopressors, Phenylephrine gtt off. Patient provided bed bath 13:00. He passed a large brown BM on the bedpan 16:30. Patient remains tachypnic and WOB with exertion, on 2L NC with SaO2 92%.
[2024-10-18 18:11] LABS: Anion Gap 13 (12-20); Blood Urea Nitrogen 14 mg/dL (9-16); Calcium 7.8 mg/dL (8.4-10.2); Carbon Dioxide 23 mmol/L (22-29); Chloride 105 mmol/L (96-108); Creatinine Clr Calc Pharmacy 40.3; Estimated Glomerular Filt Rate 57; Magnesium 2.3 mg/dL (1.6-2.6); Potassium 3.8 mmol/L (3.3-5.1); Sodium 137 mmol/L (135-145)
[2024-10-19] VITALS (15 sets, daily range): BP systolic 103–133; BP diastolic 67–81; PULSE 72–87; RESP 18–25; TEMP 36.2–37; O2SAT 90–96; BMI 24.6
[2024-10-19] MEDS: Albuterol/Iprat 2.5/0.5MG 3 ML AMPUL.NEB INHALE ×4 (07:59→19:08)
[2024-10-19] MEDS: Aspirin Enteric Coated 81 MG TABLET.DR PO (07:59)
[2024-10-19 09:03] LABS: MANUAL DIFF FLAG NO
[2024-10-19 09:09] LABS: Hematocrit 40.9 % (42.0-52.0); Hemoglobin 12.7 g/dl (14.0-18.0); Imm Gran Abs Auto 0.21 X10*3/uL (0.00-0.03); Imm Gran Pct Auto 0.9 % (0.0-0.4); Lymphocytes Absolute Auto 1.1 X10*3/uL (1.2-4.9); Mean Corpuscular HGB Conc 31.1 g/dl (31.0-36.0); Mean Corpuscular Hemoglobin 23.0 pg (27.0-33.0); Mean Corpuscular Volume 74.1 fL (80.0-98.0); NRBC Abs Auto 0.000 X10*3/uL (0.0-0.012); NRBC Pct Auto 0.0 /100WBC (0.0-0.2); Platelet Count 162 X10*3/uL (160-400); Red Blood Count 5.52 X10*6/uL (4.60-5.80); White Blood Count 23.5 X10*3/uL (4.8-10.8)
[2024-10-19 09:19] LABS: Anion Gap 11 (12-20); Blood Urea Nitrogen 12 mg/dL (9-16); Calcium 8.0 mg/dL (8.4-10.2); Carbon Dioxide 24 mmol/L (22-29); Chloride 106 mmol/L (96-108); Creatinine Clr Calc Pharmacy 45.7; Estimated Glomerular Filt Rate > 60; Magnesium 2.4 mg/dL (1.6-2.6); Potassium 3.7 mmol/L (3.3-5.1); Sodium 137 mmol/L (135-145)
--- NOTE | 2024-10-19 09:29 | MHC.CM.PN ---
IMM 10/19/24, EMR REVIEWED, PT ADMITTED TO ICU W/SHOCK, CM MET W/PT AT BEDSIDE WHO REPORTS HE LIVES W/ AND 2 ADULT SONS, PT USES A CANE, HOME O2 AND HAS A WALKER AT HOME, PT ACTIVE W/CARETENDERS [facility] FOR SN, PT, SPEECH, PT'S GOAL FOR DC IS TO RETURN HOME HOWEVER REPORTS IF HE CAN'T WALK HE WILL AGREE TO A REHAB, NO PREFERENCES NOTED. PCP/HCP ON FILE VERIFIED.
--- NOTE | 2024-10-19 11:25 | PC.NURSE ---
Pt with bleeding through tegaderm dressing to RLQ. Dr Grady notified. Dressing changed, Appears to have been a possible old injection site. New dressing with scant staining. Will continue to monitor
--- NOTE | 2024-10-19 13:00 | PC.NURSE ---
Patient refused afternoon dose heparin injection due to site of previous injection bleeding today. Dressing changed by MARYSOL Ch working [id number]. Currently dressing with quarter sized old stain, not saturated.
--- NOTE | 2024-10-19 14:40 | P.PNIM_ITS ---
Subjective Subjective Date of Service: 10/19/24 Interval History: copd Review of Systems sob seems somewhat improving no fever denies any abd or nausea or vomiting or fever or chills Review of Systems: Yes all other systems are reviewed and are negative Physical Exam 2 Exam: Exam: Appearance: seems awake alert cvs: rrr, [id number] res: cair entry fair , no rales , mild rhonchii abd: no rebound or guarding ,nt, bs present. ext pulses present , no cyanosis . neuro: nonfocal. Vital Signs: Vital Signs: Last Vital Signs Temp 97.9 F 10/19/24 11:43 Pulse 73 10/19/24 11:43 Resp 18 10/19/24 11:43 BP 103/67 10/19/24 11:43 Pulse Ox 96 10/19/24 11:43 O2 Del Method Nasal Cannula 10/19/24 11:43 O2 Flow Rate 2 10/19/24 11:43 FiO2 28 10/19/24 01:00 Oxygen Flow Rate 2 10/17/24 12:13 BMI result Body Mass Index 24.6 Objective Data Active Medications Albuterol/Ipratropium (Albuterol/Iprat 2.5/0.5mg 3 Ml Ampul.Neb) 3 ml INHALE RQ4H WHILE AWAKE [facility] Last Admin: 10/19/24 11:17 Dose: 3 ml Documented By: HOA Amiodarone HCl (Amiodarone Hcl 200 Mg Tablet) 200 mg PO DAILY [facility] Last Admin: 10/19/24 07:59 Dose: 200 mg Documented By: ALEAH Aspirin (Aspirin Enteric Coated 81 Mg Tablet.) 81 mg PO DAILY [facility] Last Admin: 10/19/24 07:59 Dose: 81 mg Documented By: ALEAH Atorvastatin Calcium (Atorvastatin Calcium 20 Mg Tablet) 20 mg PO BEDTIME [facility] Last Admin: 10/18/24 20:17 Dose: 20 mg Documented By: REMA Clopidogrel Bisulfate (Clopidogrel Bisulfate 75 Mg Tablet) 75 mg PO DAILY [facility] Last Admin: 10/19/24 07:59 Dose: 75 mg Documented By: ALEAH Heparin Sodium (Porcine) (Heparin Sodium,Porcine 5,000 Unit/Ml Vial) 5,000 unit SUBCUT Q12H [facility] Last Admin: 10/19/24 12:58 Dose: Not Given Documented By: RUTHIE Non-Admin Reason: refused see note Piperacillin Sod/Tazobactam (Sod 3.375 gm/ Sodium Chloride) 50 mls @ 100 mls/hr IV Q6H [facility] Last Infusion: 10/19/24 09:31 Dose: Infused Documented By: ALEAH Levothyroxine Sodium (Levothyroxine Sodium 25 Mcg Tablet) 25 mcg PO DAILY@0600 [facility] Last Admin: 10/19/24 05:47 Dose: 25 mcg Documented By: ROJELIO Labs 10/19/24 08:22 10/19/24 08:22 Labs: Laboratory Results - last 24 hr 10/18/24 10/19/24 17:38 08:22 MCV 74.1 L MCH 23.0 L MCHC 31.1 RDW 24.2 H Plt Count 162 MPV Not Reportable Immature Gran % (Auto) 0.9 H Neut % (Auto) 83.2 H Lymph % (Auto) 4.6 L [place] % (Auto) 3.9 Eos % (Auto) 7.0 H Baso % (Auto) 0.4 Lymph # (Auto) 1.1 L [place] # (Auto) 0.9 Eos # (Auto) 1.7 H Baso # (Auto) 0.1 Abs Immat Gran (auto) 0.21 H Absolute Neuts (auto) 19.5 H Absolute Nucleated RBC 0.000 Nucleated RBC % (auto) 0.0 Anion Gap 13 11 L Estim Creat Clear Calc 40.3 45.7 Estimated GFR 57 > 60 Random Glucose 147 H 112 Calcium 7.8 L 8.0 L Phosphorus 2.3 L 2.1 L Magnesium 2.3 2.4 Microbiology Microbiology Results: Microbiology 10/17/24 09:16 Blood Culture - Preliminary Blood - Venous No growth after 48 hours. 10/17/24 09:09 Blood Culture - Preliminary Blood - Venous No growth after 48 hours. Assessment and Plan (1) Sepsis: Status: Acute Plan 89 Y M w/ hypertension, hyperlipidemia, c/b coronary artery disease, myocardial infarction, c/b atrial fibrillation, COPD c/b chronic hypoxic respiratory failure, on home 3 L, and myeloproliferative disorder, presenting to ED on 10/17 w/ encephalopathy, found to be hypotensive, work-up suggestive of pneumonia toxic-metabolic encephalopathy:to follow-up CT head, abd ,chest (paper report -ct head negative, ct chest -modaerately severe multifocal pneumonia, CT abdomen: No definite acute process in abdomen or pelvis) Please talk to the Radiology to put official reports in the [facility]. mental status seems improving significantly acute on chronic hypoxic respiratory failure d/t pneumonia and shock likely septic, norepinephrine gtt(off it now ): Blood pressure and vitals are stable continue iv antibiotics ,follows cultures,taper oxygen has leucocytosis , no fevers , sob seems improivng acute renal insufficiency due to above -seems improving CAD on home aspirin, clopidogrel; atrial fibrillation on home amiodarone COPD, on 3 L, wean as tolerated hypothyroidism : continue levothyroxine Generalized weak: We PT evaluation Ongoing need: Acute on chronic hypoxemic respiratory failure-need IV antibiotics, cultures, taper oxygen. Quality Stroke Does the patient have a stroke diagnosis?: No VTE Prior VTE?: No VTE Risk Level:: Medical - moderate - high VTE Device Contraindication: N/A - Device Ordered VTE Drug Contraindication: N/A - Med Ordered
[2024-10-19 18:53] LABS: Anion Gap 10 (12-20); Blood Urea Nitrogen 11 mg/dL (9-16); Calcium 8.3 mg/dL (8.4-10.2); Carbon Dioxide 27 mmol/L (22-29); Chloride 105 mmol/L (96-108); Creatinine Clr Calc Pharmacy 47.9; Estimated Glomerular Filt Rate > 60; Magnesium 2.3 mg/dL (1.6-2.6); Potassium 3.6 mmol/L (3.3-5.1); Sodium 138 mmol/L (135-145)
[2024-10-19 21:43] LABS: Strep Pneumo Ag urine Not Detected (Not Detected)
[2024-10-20] VITALS (10 sets, daily range): BP systolic 110–146; BP diastolic 75–88; PULSE 68–75; RESP 18–20; TEMP 36.3–36.7; O2SAT 90–95; BMI 24.5
[2024-10-20 07:11] LABS: MANUAL DIFF FLAG NO
[2024-10-20 07:18] LABS: Hematocrit 41.6 % (42.0-52.0); Hemoglobin 12.7 g/dl (14.0-18.0); Imm Gran Abs Auto 0.16 X10*3/uL (0.00-0.03); Imm Gran Pct Auto 1.0 % (0.0-0.4); Lymphocytes Absolute Auto 0.8 X10*3/uL (1.2-4.9); Mean Corpuscular HGB Conc 30.5 g/dl (31.0-36.0); Mean Corpuscular Hemoglobin 23.0 pg (27.0-33.0); Mean Corpuscular Volume 75.2 fL (80.0-98.0); NRBC Abs Auto 0.000 X10*3/uL (0.0-0.012); NRBC Pct Auto 0.0 /100WBC (0.0-0.2); Platelet Count 170 X10*3/uL (160-400); Red Blood Count 5.53 X10*6/uL (4.60-5.80); White Blood Count 16.7 X10*3/uL (4.8-10.8)
[2024-10-20 07:31] LABS: Anion Gap 11 (12-20); Anion Gap 12 (12-20); Blood Urea Nitrogen 10 mg/dL (9-16); Blood Urea Nitrogen 11 mg/dL (9-16); Calcium 8.1 mg/dL (8.4-10.2); Carbon Dioxide 23 mmol/L (22-29); Chloride 105 mmol/L (96-108); Creatinine Clr Calc Pharmacy 52.6; Creatinine Clr Calc Pharmacy 53.2; Estimated Glomerular Filt Rate > 60; Magnesium 2.2 mg/dL (1.6-2.6); Potassium 4.1 mmol/L (3.3-5.1); Potassium 4.3 mmol/L (3.3-5.1); Sodium 135 mmol/L (135-145); Sodium 136 mmol/L (135-145)
[2024-10-20] MEDS: Albuterol/Iprat 2.5/0.5MG 3 ML AMPUL.NEB INHALE ×4 (08:06→19:22)
[2024-10-20] MEDS: Aspirin Enteric Coated 81 MG TABLET.DR PO (08:14)
--- NOTE | 2024-10-20 11:27 | HO.PM.IMPN ---
Subjective Subjective Date of Service: 10/20/24 Interval History: Feeling better Physical Exam Exam: Exam: Appearance: seems awake alert cvs: rrr, [id number] res: cair entry fair , no rales , mild rhonchii abd: no rebound or guarding ,nt, bs present. ext pulses present , no cyanosis . neuro: nonfocal. Vital Signs: Vital Signs: Last Vital Signs Temp 97.8 F 10/20/24 11:16 Pulse 68 10/20/24 11:16 Resp 20 10/20/24 11:16 BP 128/78 10/20/24 11:16 Pulse Ox 94 10/20/24 11:16 O2 Del Method Nasal Cannula 10/20/24 11:16 O2 Flow Rate 2.5 10/20/24 11:16 FiO2 28 10/19/24 01:00 Oxygen Flow Rate 2 10/17/24 12:13 BMI result Body Mass Index 24.5 Objective Data Active Medications Albuterol/Ipratropium (Albuterol/Iprat 2.5/0.5mg 3 Ml Ampul.Neb) 3 ml INHALE RQ4H WHILE AWAKE [facility] Last Admin: 10/20/24 08:06 Dose: 3 ml Documented By: HOA Amiodarone HCl (Amiodarone Hcl 200 Mg Tablet) 200 mg PO DAILY [facility] Last Admin: 10/20/24 08:14 Dose: 200 mg Documented By: SUSAN Aspirin (Aspirin Enteric Coated 81 Mg Tablet.) 81 mg PO DAILY [facility] Last Admin: 10/20/24 08:14 Dose: 81 mg Documented By: SUSAN Atorvastatin Calcium (Atorvastatin Calcium 20 Mg Tablet) 20 mg PO BEDTIME [facility] Last Admin: 10/19/24 20:56 Dose: 20 mg Documented By: SHANITA Clopidogrel Bisulfate (Clopidogrel Bisulfate 75 Mg Tablet) 75 mg PO DAILY [facility] Last Admin: 10/20/24 08:14 Dose: 75 mg Documented By: SUSAN Heparin Sodium (Porcine) (Heparin Sodium,Porcine 5,000 Unit/Ml Vial) 5,000 unit SUBCUT Q12H [facility] Last Admin: 10/20/24 02:42 Dose: 5,000 unit Documented By: SHANITA Piperacillin Sod/Tazobactam (Sod 3.375 gm/ Sodium Chloride) 50 mls @ 100 mls/hr IV Q6H [facility] Last Infusion: 10/20/24 08:52 Dose: Infused Documented By: SUSAN Levothyroxine Sodium (Levothyroxine Sodium 25 Mcg Tablet) 25 mcg PO DAILY@0600 [facility] Last Admin: 10/20/24 05:30 Dose: 25 mcg Documented By: SHANITA Labs 10/20/24 06:27 10/20/24 06:27 Labs: Laboratory Results - last 24 hr 10/17/24 10/19/24 10/20/24 12:39 18:25 06:27 MCV 75.2 L MCH MCHC RDW Plt Count MPV Immature Gran % (Auto) Neut % (Auto) Lymph % (Auto) [place] % (Auto) Eos % (Auto) Baso % (Auto) Lymph # (Auto) [place] # (Auto) Eos # (Auto) Baso # (Auto) Abs Immat Gran (auto) Absolute Neuts (auto) Absolute Nucleated RBC Nucleated RBC % (auto) Anion Gap 10 L Estim Creat Clear Calc 47.9 Estimated GFR > 60 Random Glucose 121 H Calcium 8.3 L Phosphorus 2.1 L Magnesium 2.3 Ur Strep pneumoniae Ag Not Detected 10/20/24 10/20/24 10/20/24 06:27 06:27 06:27 MCV Cancelled MCH 23.0 L Cancelled MCHC 30.5 L Cancelled RDW 24.0 H Plt Count MPV Immature Gran % (Auto) Neut % (Auto) Lymph % (Auto) [place] % (Auto) Eos % (Auto) Baso % (Auto) Lymph # (Auto) [place] # (Auto) Eos # (Auto) Baso # (Auto) Abs Immat Gran (auto) Absolute Neuts (auto) Absolute Nucleated RBC Nucleated RBC % (auto) Anion Gap Estim Creat Clear Calc Estimated GFR Random Glucose Calcium Phosphorus Magnesium Ur Strep pneumoniae Ag 10/20/24 10/20/24 10/20/24 06:27 06:27 06:27 MCV MCH MCHC RDW Cancelled Plt Count 170 Cancelled MPV Not Reportable Cancelled Immature Gran % (Auto) 1.0 H Neut % (Auto) 77.4 H Lymph % (Auto) 5.0 L [place] % (Auto) 4.1 Eos % (Auto) 12.0 H Baso % (Auto) 0.5 Lymph # (Auto) 0.8 L [place] # (Auto) 0.7 Eos # (Auto) 2.0 H Baso # (Auto) 0.1 Abs Immat Gran (auto) 0.16 H Absolute Neuts (auto) 12.9 H Absolute Nucleated RBC 0.000 Nucleated RBC % (auto) Anion Gap Estim Creat Clear Calc Estimated GFR Random Glucose Calcium Phosphorus Magnesium Ur Strep pneumoniae Ag 10/20/24 10/20/24 10/20/24 06:27 06:27 06:27 MCV MCH MCHC RDW Plt Count MPV Immature Gran % (Auto) Neut % (Auto) Lymph % (Auto) [place] % (Auto) Eos % (Auto) Baso % (Auto) Lymph # (Auto) [place] # (Auto) Eos # (Auto) Baso # (Auto) Abs Immat Gran (auto) Absolute Neuts (auto) Absolute Nucleated RBC Cancelled Nucleated RBC % (auto) 0.0 Cancelled Anion Gap 11 L 12 Estim Creat Clear Calc 52.6 Estimated GFR Random Glucose Calcium Phosphorus Magnesium Ur Strep pneumoniae Ag 10/20/24 10/20/24 10/20/24 06:27 06:27 06:27 MCV MCH MCHC RDW Plt Count MPV Immature Gran % (Auto) Neut % (Auto) Lymph % (Auto) [place] % (Auto) Eos % (Auto) Baso % (Auto) Lymph # (Auto) [place] # (Auto) Eos # (Auto) Baso # (Auto) Abs Immat Gran (auto) Absolute Neuts (auto) Absolute Nucleated RBC Nucleated RBC % (auto) Anion Gap Estim Creat Clear Calc 53.2 Estimated GFR > 60 > 60 Random Glucose 76 75 Calcium 8.1 L Phosphorus Magnesium Ur Strep pneumoniae Ag 10/20/24 06:27 MCV MCH MCHC RDW Plt Count MPV Immature Gran % (Auto) Neut % (Auto) Lymph % (Auto) [place] % (Auto) Eos % (Auto) Baso % (Auto) Lymph # (Auto) [place] # (Auto) Eos # (Auto) Baso # (Auto) Abs Immat Gran (auto) Absolute Neuts (auto) Absolute Nucleated RBC Nucleated RBC % (auto) Anion Gap Estim Creat Clear Calc Estimated GFR Random Glucose Calcium 8.1 L Phosphorus 2.8 Magnesium 2.2 Ur Strep pneumoniae Ag Microbiology Microbiology Results: Microbiology 10/17/24 09:16 Blood Culture - Preliminary Blood - Venous No growth after 48 hours. 10/17/24 09:09 Blood Culture - Preliminary Blood - Venous No growth after 48 hours. Assessment and Plan (1) Cardiomyopathy: Status: Acute Plan 89M PMH CAD, hypertension, hyperlipidemia, COPD with chronic hypoxic respiratory failure on 3 L home O2, myeloproliferative disorder, left subclavian artery stenosis status post stent, history of SVT, admitted to the intensive care unit 10/17/2024 for septic shock due to aspiration pneumonia downgraded to medical floor on 10/19/2024 Septic shock and acute on chronic hypoxic respiratory failure and acute metabolic encephalopathy due to aspiration pneumonia Downgraded diet to pureed for now, speech eval Continue Zosyn Now back on chronic O2 level CAD Aspirin, statin, Plavix Hypothyroid Levothyroxine Deconditioning PT DNR/DNI DVT prophylaxis-heparin subQ reason for continued hospitalization: doula eval, iv abx Quality Stroke Does the patient have a stroke diagnosis?: No VTE Prior VTE?: No VTE Risk Level:: Medical - moderate - high VTE Device Contraindication: N/A - Device Ordered VTE Drug Contraindication: N/A - Med Ordered
--- NOTE | 2024-10-20 11:55 | MHC.CM.PN ---
EMR reviewed and per MD rounds, pt is not medically cleared for discharge due to management of septic shock/acute on chronic hypoxic respiratory failure/acute metabolic encephalopathy/aspiration pneumonia.
--- NOTE | 2024-10-20 11:56 | P.CDIM_ITS ---
PROVIDER RESPONSE TEXT: To clarify, the appropriate diagnosis supported by the clinical indicators: Acute renal insufficiency QUERY TEXT: PHYSICIAN'S DOCUMENTATION REQUEST Date of Query: 10/20/2024 11:43 AM EDT Patient Name: Wyatt Shelton Admit Date: 10/17/2024 Dear Fan Johnston MD, A review of the medical record indicates additional documentation may be needed. Please review below and update the documentation accordingly. Clinical Indicators: H&P 10/17/24 - Acute kidney injury possibly secondary to hypovolemia Baseline creatinine normal, creatinine today is 1.8 Monitor I&O's Progress note dated 10/18/24 - Acute renal insufficiency, monitor renal indices. Progress note dated 10/19/24 - Acute renal insufficiency due to above, Acute on chronic respiratory failure/pneumonia/shock. Cr: 1.48/0.97 Gfr: 45/>60 Please clarify which of the following accurately represents the patient's renal status: Acute renal Injury (GENEVIEVE) suspected, cannot rule out, possible, probable, etc. Acute renal insufficiency After study Acute renal failure is ruled out Other (explain) Clinically unable to determine (explain) Thank you, Salma Saldivar, CCS, CDIS Use of terms such as suspected, likely, concern for, or probable (associated with a specific diagnosis that is being evaluated, monitored, or treated as if it exists) are acceptable and can be coded in the inpatient setting, when documented at the time of discharge. Please use your independent medical judgment in providing your response. THIS QUERY IS PART OF THE PERMANENT MEDICAL RECORD
--- NOTE | 2024-10-20 13:21 | MHC.SLORD ---
Speech Language Pathology Order Status: Swallow evaluation initiated with thin liquds only, RN consulted. Pt had taken meds whole with water, no issues. Pt ate small amount of lunch (pasta) but endorsed no appetite. Pt on 10L O2 via mask. Pt cervical spine significantly weak, with chin resting on chest. Pt reported he has had weakness of his neck for several years, with no hx of PT intervention. MANAGER UNDERWRITING & RN repositioned pt more upright for trials of solids, but as RN monitoring pt desating into upper 80s. RN contacted MD, pt being transferred to [facility] d/t need for higher level of care. MANAGER UNDERWRITING to assess PO tolerance when respiratory status stable.
--- NOTE | 2024-10-20 13:39 | MHC.SL.SWA ---
Speech Pathologist Impression: Presbyphagia Risk of Aspiration Due to: Age related changes to swallow mechanism Chronic aspiration PNA Dysphasia Diet Status: Recommend pt continue with PUREE solids (NDD1) and THIN liquids w/ meds WHOLE in PUREE. Pt benefits from cues to slow pace and take small bites/sips. Liquid Consistency and Strategies for Safe Swallow: Liquid Intake Recommendation: Thin Liquid Intake Strategies: Solid Food Consistency: Dietary Recommendations: Pureed (NDD1) Additional Modifications to Solid Foods: Slow pacing, reduce bolus size Oral Medication Intake: Crushed with Puree Please contact the pharmacy regarding appropriate crushable or liquid drug formulations that are available whenever modified delivery is recommended. Compensatory Strategies and Precautions to be Taken for Safe Swallow: Supervision While Eating and Drinking for Safe Swallow: Intermittent Supervision Foods to Avoid: Swallowing Recommended Treatments: Recommendation for Speech: Inpatient Speech Therapy Comment: Pt has been evaluated in the past for dysphagia, last seen 10/07 while inpatient. Pt is on pureed diet with thin liquids at baseline. Pt does not want SHOW HOST/HOSTESS tx for dysphagia, verbalizing he understands he may have chronic aspiration PNA. : No overt s/s of aspiration with purees and thins. Suspect silent aspiration. Pt independently uses strategies to improve safety, such as sitting upright in chair, pacing slowly, swallowing hard, avoiding solid foods (noting he only eats soft foods). SHOW HOST/HOSTESS provided education, suggestions for dysphagia tx; pt pleasantly declined seeking further intervention, noting he has lived through a lot already and that he is not concerned about aspiration PNA. Frequency/Duration: SHOW HOST/HOSTESS tx daily while inpatient Date Range for Service Req: Timeline to reassess: Station Master Clinican/Clinical Fellow: No Supervisory Statement: I have reviewed and agree with the student/clinical fellow's documentation: N/A Speech Language Pathologist: Maryuri Burger M.S., [facility])-SHOW HOST/HOSTESS
--- NOTE | 2024-10-20 15:54 | MHC.CM.PN ---
PT evaluated pt and are recommending STR. This CM met with pt to discuss STR options, he is agreeable with going to STR and states [facility] would be his first choice. Referral to [facility] placed in [facility], awaiting bed offer.
--- NOTE | 2024-10-20 16:39 | P.CNID_ITS ---
History of Present Illness Data of Consult Service Date: 10/20/24 Requesting physician: Fan Johnston Primary Care Provider: tSephanie Orr MD HPI Reason for consult: sepsis/pneumonia He presents with cough and shortness of breath. He has right mid lung pneumonia. He has had this before/aspiration. Review of Systems 2 Review of Systems: Yes all other systems are reviewed and are negative PMFSH Past Medical History Medical History Wide-complex tachycardia Pneumonia Supraventricular tachycardia Bifascicular block History of prosthetic unicompartmental arthroplasty of both knees Hyperlipidemia HTN (hypertension) CAD (coronary artery disease) COPD (chronic obstructive pulmonary disease) Polycythemia vera Leukocytosis Polycythemia Fracture High cholesterol HTN (hypertension) Heart attack Family History Family History Daughter Aortic aneurysm Family history: reviewed and not pertinent Surgical History Surgical History H/O left knee surgery S/P angiogram of extremity Hx of rotator cuff surgery H/O arthroscopy of shoulder Social History Social History Household Members: Family Housing: House Do you presently have visiting nurse or other home services: Yes (PT and visiting nurse) Unable to assess alcohol history related to: Unknown Patient Tobacco Use Status: Former Tobacco user Tobacco use type: Cigarette Cigarette Packs Per Day: 1 Second Hand Smoke Exposure: No Advance Directives Date on File: 05/01/24 service: No Meds Allergies Allergy/AdvReac Type Severity Reaction Status Date / Time No Known Allergies (No Known Allergy Unverified 10/17/24 09:00 Allergies*) Active Medications: Current Medications Albuterol/Ipratropium (Albuterol/Iprat 2.5/0.5mg 3 Ml Ampul.Neb) 3 ml INHALE RQ4H WHILE AWAKE [facility] Last Admin: 10/20/24 16:03 Dose: 3 ml Amiodarone HCl (Amiodarone Hcl 200 Mg Tablet) 200 mg PO DAILY [facility] Last Admin: 10/20/24 08:14 Dose: 200 mg Aspirin (Aspirin Enteric Coated 81 Mg Tablet.Dr) 81 mg PO DAILY [facility] Last Admin: 10/20/24 08:14 Dose: 81 mg Atorvastatin Calcium (Atorvastatin Calcium 20 Mg Tablet) 20 mg PO BEDTIME [facility] Last Admin: 10/19/24 20:56 Dose: 20 mg Clopidogrel Bisulfate (Clopidogrel Bisulfate 75 Mg Tablet) 75 mg PO DAILY [facility] Last Admin: 10/20/24 08:14 Dose: 75 mg Heparin Sodium (Porcine) (Heparin Sodium,Porcine 5,000 Unit/Ml Vial) 5,000 unit SUBCUT Q12H [facility] Last Admin: 10/20/24 13:16 Dose: 5,000 unit Piperacillin Sod/Tazobactam (Sod 3.375 gm/ Sodium Chloride) 50 mls @ 100 mls/hr IV Q6H [facility] Last Infusion: 10/20/24 15:12 Dose: Infused Levothyroxine Sodium (Levothyroxine Sodium 25 Mcg Tablet) 25 mcg PO DAILY@06 [facility] Last Admin: 10/20/24 05:30 Dose: 25 mcg Home Medications ?Medication ?Instructions ?Recorded ?Confirmed ?Last Taken ?Type albuterol sulfate 90 mcg/actuation 1 puff inhalation Q 6H PRN asthma 04/24/24 10/17/24 Unknown History aerosol inhaler cyanocobalamin (vitamin B-12) 1,000 mcg PO DAILY 04/2410/17/24 10/04/24 History 1,000 mcg tablet amiodarone 200 mg tablet 200 mg PO DAILY 04/28/2410/04/24 History albuterol sulfate 2.5 mg/3 mL 2.5 mg inhalation Q8H [place] 06/13/24 10/17/24 Unknown History (0.083 %) solution for nebulization Shortness Of Breat h Or Wheezing clopidogrel 75 mg tablet 75 mg PO DAILY 10/05/2409/2510/04/24 History ferrous sulfate 325 mg (65 mg 325 mg PO DAILY 10/05/24 10/17/24 10/04/24 History iron) tablet furosemide 40 mg tablet 40 mg PO DAILY 10/05/2409/2510/04/24 History metoprolol succinate 50 mg 50 mg PO DAILY 10/05/2410/04/24 History tablet,extended release 24 hr levothyroxine 25 mcg capsule 25 mcg PO DAILY@0600 09/25 06/18 10/17/25 Unknown History Physical Exam 2 Vital Signs: Vital Signs: Last Vital Signs Temp 98.1 F 10/20/24 15:23 Pulse 69 10/20/24 16:04 Resp 20 10/20/24 16:04 BP 146/88 H 10/20/24 15:23 Pulse Ox 95 10/20/24 15:23 O2 Del Method Nasal Cannula 10/20/24 15:23 O2 Flow Rate 3 10/20/24 15:23 FiO2 28 10/19/24 01:00 Oxygen Flow Rate 2 10/17/24 12:13 BMI result Body Mass Index 24.5 Const: General: cooperative HEENT: Head: Yes normal to inspection Face and sinus: Yes normal facial exam Mouth: Normal oral and palatal mucosa present Teeth and gingiva: d entition normal Eyes: General: appearance normal, both eyes and all related structures P upils: Equal, round and reactive pupils present Resp: Other: rhonchi bases Cardio: Rate: regular rate Rhythm: regular rhythm GI: Palpation (GI): Soft to palpation and nontender : General: Yes no CVA tenderness Back/Spine/Pelvis: Back: no CVA tenderness Skin: General skin exam: no rashes or lesions noted Neuro: General: moves all extremities Cranial nerves: Yes Equal, round and reactive pupils present Extrem: General: Yes normal to inspection Psych: Appearance: grossly normal Results Labs 10/20/24 06:27 10/20/24 06:27 Labs: Short CBC 10/20/24 10/20/24 10/20/24 Range/Units 06:27 06:27 06:27 WBC 16.7 H Cancelled (4.8-10.8) X10*3/uL Hgb 12.7 L Cancelled (14.0-18.0) g/dl Hct 41.6 L (42.0-52.0) % Plt Count (160-400) X10*3/uL 10/20/24 10/20/24 Range/Units 06:27 06:27 WBC (4.8-10.8) X10*3/uL Hgb (14.0-18.0) g/dl Hct Cancelled (42.0-52.0) % Plt Count 170 Cancelled (160-400) X10*3/uL BMP 10/19/24 10/20/2425 18:25 06:27 06:27 Sodium 138 135 136 Potassium 3.6 4.1 Chloride 105 Carbon Dioxide 27 BUN 11 Creatinine 1.01 Calcium 8.3 L 10/20/24 10/20/24 10/20/24 06:27 06:27 06:27 Sodium Potassium 4.3 Chloride 105 105 Carbon Dioxide 23 23 BUN 11 Creatinine Calcium 10/20/24 10/20/24 10/20/24 06: 06: 06:27 Sodium Potassium Chloride Carbon Dioxide BUN 10 Creatinine 0.92 0.91 Calcium 8.1 L 8.1 L Microbiology Microbiology Results: Microbiology 10/20/24 02:51 Sputum - Expectorated Gram Stain - Final 10/17/24 09:16 Blood - Venous Blood Culture - Preliminary No growth after 48 hours. 10/17/24 09:09 Blood - Venous Blood Culture - Preliminary No growth after 48 hours. Assessment and Plan (1) Pneumonia: Qualifiers: Laterality: right Lung location: lower lobe of lung Status: Acute Plan Continue piperacillin/tazobactam for now 8 days total antibiotics and finish Augmentin outpatient if needed. Add Doxycycline 100 bid if not responding cover atypicals for 10 days.
[2024-10-20 22:33] LABS: Mycoplasma Pneumoniae - IgG 1.31 (<=0.90); Mycoplasma Pneumoniae - IgM 515 U/mL (<770)
[2024-10-21] VITALS (10 sets, daily range): BP systolic 100–159; BP diastolic 71–96; PULSE 69–80; RESP 16–26; TEMP 35.8–36.9; O2SAT 92–100; BMI 24.5
[2024-10-21 06:57] LABS: Anion Gap 13 (12-20); Blood Urea Nitrogen 10 mg/dL (9-16); Calcium 8.3 mg/dL (8.4-10.2); Carbon Dioxide 24 mmol/L (22-29); Chloride 103 mmol/L (96-108); Creatinine Clr Calc Pharmacy 59.0; Estimated Glomerular Filt Rate > 60; Potassium 4.0 mmol/L (3.3-5.1); Sodium 136 mmol/L (135-145)
[2024-10-21 07:18] LABS: Hematocrit 44.9 % (42.0-52.0); Hemoglobin 13.5 g/dl (14.0-18.0); Mean Corpuscular HGB Conc 30.1 g/dl (31.0-36.0); Mean Corpuscular Hemoglobin 22.9 pg (27.0-33.0); Mean Corpuscular Volume 76.1 fL (80.0-98.0); NRBC Abs Auto 0.000 X10*3/uL (0.0-0.012); NRBC Pct Auto 0.0 /100WBC (0.0-0.2); Platelet Count 203 X10*3/uL (160-400); Red Blood Count 5.90 X10*6/uL (4.60-5.80); White Blood Count 17.5 X10*3/uL (4.8-10.8)
[2024-10-21] MEDS: Albuterol/Iprat 2.5/0.5MG 3 ML AMPUL.NEB INHALE ×4 (07:46→19:22)
[2024-10-21] MEDS: Aspirin Enteric Coated 81 MG TABLET.DR PO (09:04)
--- NOTE | 2024-10-21 10:47 | HO.PM.IMPN ---
Subjective Subjective Date of Service: 10/21/24 Interval History: sob Physical Exam Vital Signs: Vital Signs: Last Vital Signs Temp 98.4 F 10/21/24 07:53 Pulse 73 10/21/24 07:53 Resp 24 H 10/21/24 07:53 BP 158/91 H 10/21/24 07:53 Pulse Ox 100 10/21/24 07:53 O2 Del Method Nasal Cannula 10/21/24 07:53 O2 Flow Rate 2 10/21/24 04:00 FiO2 28 10/19/24 01:00 Oxygen Flow Rate 2 10/17/24 12:13 BMI result Body Mass Index 24.5 Const: General: cooperative HEENT: Head: Yes normal to inspection Face and sinus: Yes normal facial exam Mouth: Normal oral and palatal mucosa present Teeth and gingiva: dentition normal Eyes: General: appearance normal, both eyes and all related structures Pupils: Equal, round and reactive pupils present Resp: Other: rhonchi bases Cardio: Rate: regular rate Rhythm: regular rhythm GI: Palpation (GI): Soft to palpation and nontender : General: Yes no CVA tenderness Back/Spine/Pelvis: Back: no CVA tenderness Skin: General skin exam: no rashes or lesions noted Neuro: General: moves all extremities Cranial nerves: Yes Equal, round and reactive pupils present Extrem: General: Yes normal to inspection Psych: Appearance: grossly normal Objective Data Active Medications Albuterol/Ipratropium (Albuterol/Iprat 2.5/0.5mg 3 Ml Ampul.Neb) 3 ml INHALE RQ4H WHILE AWAKE [facility] Last Admin: 10/21/24 07:46 Dose: 3 ml Documented By: HOA Amiodarone HCl (Amiodarone Hcl 200 Mg Tablet) 200 mg PO DAILY [facility] Last Admin: 10/21/24 09:04 Dose: 200 mg Documented By: SUSAN Aspirin (Aspirin Enteric Coated 81 Mg Tablet.) 81 mg PO DAILY [facility] Last Admin: 10/21/24 09:04 Dose: 81 mg Documented By: SUSAN Atorvastatin Calcium (Atorvastatin Calcium 20 Mg Tablet) 20 mg PO BEDTIME [facility] Last Admin: 10/20/24 21:09 Dose: 20 mg Documented By: SHANITA Clopidogrel Bisulfate (Clopidogrel Bisulfate 75 Mg Tablet) 75 mg PO DAILY [facility] Last Admin: 10/21/24 09:04 Dose: 75 mg Documented By: SUSAN Heparin Sodium (Porcine) (Heparin Sodium,Porcine 5,000 Unit/Ml Vial) 5,000 unit SUBCUT Q12H [facility] Last Admin: 10/21/24 02:45 Dose: 5,000 unit Documented By: SHANITA Piperacillin Sod/Tazobactam (Sod 3.375 gm/ Sodium Chloride) 50 mls @ 100 mls/hr IV Q6H [facility] Last Infusion: 10/21/24 09:34 Dose: Infused Documented By: SUASN Levothyroxine Sodium (Levothyroxine Sodium 25 Mcg Tablet) 25 mcg PO DAILY@0600 [facility] Last Admin: 10/21/24 05:43 Dose: 25 mcg Documented By: SHANITA Labs 10/21/24 05:37 10/21/24 05:37 Labs: Laboratory Results - last 24 hr 10/17/24 10/21/24 12:52 05:37 MCV 76.1 L MCH 22.9 L MCHC 30.1 L RDW 24.4 H Plt Count 203 MPV Not Reportable Absolute Nucleated RBC 0.000 Nucleated RBC % (auto) 0.0 Anion Gap 13 Estim Creat Clear Calc 59.0 Estimated GFR > 60 Random Glucose 85 Calcium 8.3 L Mycoplasma pneumon IgG 1.31 H Mycoplasma pneumon IgM 515 Microbiology Microbiology Results: Microbiology 10/20/24 02:51 Gram Stain - Final Sputum - Expectorated Sputum Culture - Preliminary Culture in progress. Assessment and Plan (1) Cardiomyopathy: Status: Acute Plan 89M PMH CAD, hypertension, hyperlipidemia, COPD with chronic hypoxic respiratory failure on 3 L home O2, myeloproliferative disorder, left subclavian artery stenosis status post stent, history of SVT, admitted to the intensive care unit 10/17/2024 for septic shock due to aspiration pneumonia downgraded to medical floor on 10/19/2024 Septic shock and acute on chronic hypoxic respiratory failure and acute metabolic encephalopathy due to aspiration pneumonia diet pureed with thins, speech appreciated Continue Zosyn, can change to augmentin on dc, 8 days total (end 10/24/24) flutter valve CAD Aspirin, statin, Plavix Hypothyroid Levothyroxine Deconditioning PT DNR/DNI DVT prophylaxis-heparin subQ reason for continued hospitalization:hypoxia Quality Stroke Does the patient have a stroke diagnosis?: No VTE Prior VTE?: No VTE Risk Level:: Medical - moderate - high VTE Device Contraindication: N/A - Device Ordered VTE Drug Contraindication: N/A - Med Ordered
--- NOTE | 2024-10-21 18:14 | MHC.SL.SWA ---
Speech Pathologist Impression: Risk of Aspiration Due to: Dysphasia Diet Status: Recommend continue on PUREE (NDD1) with THIN liquids, pills crushed in puree. Liquid Consistency and Strategies for Safe Swallow: Liquid Intake Recommendation: Thin Liquid Intake Strategies: Solid Food Consistency: Dietary Recommendations: Pureed (NDD1) Additional Modifications to Solid Foods: Slow pacing, reduce bolus size Oral Medication Intake: Crushed with Puree Please contact the pharmacy regarding appropriate crushable or liquid drug formulations that are available whenever modified delivery is recommended. Compensatory Strategies and Precautions to be Taken for Safe Swallow: Sitting Upright (90 deg) Liquids from Cup Liquids from Straw Small Bites and Sips Alternate Liquids/Solids Supervision While Eating and Drinking for Safe Swallow: None Needed Foods to Avoid: Swallowing Recommended Treatments: Recommendation for Speech: Inpatient Speech Therapy Comment: PPatient seen at lunch. Patient seated in chair beside bed with tray of purees, and drinks with straws, contentedly eating as PRODUCT MARKETING PROGRAMS MANAGER arrived. Patient alllowed PRODUCT MARKETING PROGRAMS MANAGER to observe for a period, with patient taking reasonable bites of food, orally manipulating/mashing the bolus and producing a timely swallow. Patient took serial sips by straw, produced timely swallow, no clinical signs of aspiration. Patient noted to have audible respiratory wheeze throughout. Patient expressed satisfaction with current diet. Recommend continue on PUREE (NDD1) with THIN liquids, pills crushed in puree. Frequency/Duration: PRODUCT MARKETING PROGRAMS MANAGER tx daily while inpatient Date Range for Service Req: Timeline to reassess: Director Of Sales Clinican/Clinical Fellow: No Supervisory Statement: I have reviewed and agree with the student/clinical fellow's documentation: N/A Speech Language Pathologist: Klaudia Shanks M.A., [facility]-PRODUCT MARKETING PROGRAMS MANAGER
[2024-10-22] VITALS (12 sets, daily range): BP systolic 90–131; BP diastolic 60–83; PULSE 63–77; RESP 18–21; TEMP 36.2–36.9; O2SAT 91–97; BMI 24.5
[2024-10-22] MEDS: Albuterol/Iprat 2.5/0.5MG 3 ML AMPUL.NEB INHALE ×4 (07:33→19:07)
[2024-10-22 07:59] LABS: Hematocrit 46.0 % (42.0-52.0); Hemoglobin 13.8 g/dl (14.0-18.0); Mean Corpuscular HGB Conc 30.0 g/dl (31.0-36.0); Mean Corpuscular Hemoglobin 22.8 pg (27.0-33.0); Mean Corpuscular Volume 76.2 fL (80.0-98.0); NRBC Abs Auto 0.000 X10*3/uL (0.0-0.012); NRBC Pct Auto 0.0 /100WBC (0.0-0.2); Platelet Count 206 X10*3/uL (160-400); Red Blood Count 6.04 X10*6/uL (4.60-5.80); White Blood Count 18.8 X10*3/uL (4.8-10.8)
[2024-10-22 08:12] LABS: Anion Gap 12 (12-20); Blood Urea Nitrogen 11 mg/dL (9-16); Calcium 8.3 mg/dL (8.4-10.2); Carbon Dioxide 27 mmol/L (22-29); Chloride 103 mmol/L (96-108); Creatinine Clr Calc Pharmacy 60.5; Estimated Glomerular Filt Rate > 60; Potassium 4.4 mmol/L (3.3-5.1); Sodium 138 mmol/L (135-145)
[2024-10-22] MEDS: Aspirin Enteric Coated 81 MG TABLET.DR PO (08:16)
--- NOTE | 2024-10-22 08:45 | P.PNIM_ITS ---
Subjective Subjective Date of Service: 10/22/24 Interval History: difficulty coughing up secretions Physical Exam 2 Vital Signs: Vital Signs: Last Vital Signs Temp 97.7 F 10/22/24 07:42 Pulse 68 10/22/24 07:42 Resp 21 H 10/22/24 07:42 BP 131/83 10/22/24 07:42 Pulse Ox 94 10/22/24 07:42 O2 Del Method Nasal Cannula 10/22/24 07:42 O2 Flow Rate 3 10/22/24 07:42 FiO2 28 10/19/24 01:00 Oxygen Flow Rate 2 10/17/24 12:13 BMI result Body Mass Index 24.5 Const: General: cooperative HEENT: Head: Yes normal to inspection Face and sinus: Yes normal facial exam Mouth: Normal oral and palatal mucosa present Teeth and gingiva: d entition normal Eyes: General: appearance normal, both eyes and all related structures P upils: Equal, round and reactive pupils present Resp: Other: rhonchi bases Cardio: Rate: regular rate Rhythm: regular rhythm GI: Palpation (GI): Soft to palpation and nontender : General: Yes no CVA tenderness Back/Spine/Pelvis: Back: no CVA tenderness Skin: General skin exam: no rashes or lesions noted Neuro: General: moves all extremities Cranial nerves: Yes Equal, round and reactive pupils present Extrem: General: Yes normal to inspection Psych: Appearance: grossly normal Objective Data Active Medications Albuterol/Ipratropium (Albuterol/Iprat 2.5/0.5mg 3 Ml Ampul.Neb) 3 ml INHALE RQ4H WHILE AWAKE [facility] Last Admin: 10/22/24 07:33 Dose: 3 ml Documented By: SHWETA Amiodarone HCl (Amiodarone Hcl 200 Mg Tablet) 200 mg PO DAILY [facility] Last Admin: 10/22/24 08:17 Dose: 200 mg Documented By: SUSAN Aspirin (Aspirin Enteric Coated 81 Mg Tablet.) 81 mg PO DAILY [facility] Last Admin: 10/22/24 08:16 Dose: 81 mg Documented By: SSUAN Atorvastatin Calcium (Atorvastatin Calcium 20 Mg Tablet) 20 mg PO BEDTIME [facility] Last Admin: 10/21/24 19:56 Dose: 20 mg Documented By: VERENA Clopidogrel Bisulfate (Clopidogrel Bisulfate 75 Mg Tablet) 75 mg PO DAILY [facility] Last Admin: 10/22/24 08:16 Dose: 75 mg Documented By: SUSAN Heparin Sodium (Porcine) (Heparin Sodium,Porcine 5,000 Unit/Ml Vial) 5,000 unit SUBCUT Q12H [facility] Last Admin: 10/22/24 02:26 Dose: 5,000 unit Documented By: VERENA Piperacillin Sod/Tazobactam (Sod 3.375 gm/ Sodium Chloride) 50 mls @ 100 mls/hr IV Q6H [facility] Last Admin: 10/22/24 08:16 Dose: 100 mls/hr Documented By: SUSAN Levothyroxine Sodium (Levothyroxine Sodium 25 Mcg Tablet) 25 mcg PO DAILY@0600 [facility] Last Admin: 10/22/24 06:08 Dose: 25 mcg Documented By: VERENA Labs 10/22/24 07:19 10/22/24 07:19 Labs: Laboratory Results - last 24 hr 10/17/24 10/22/24 12:39 07:19 MCV 76.2 L MCH 22.8 L MCHC 30.0 L RDW 24.2 H Plt Count 206 MPV Not Reportable Absolute Nucleated RBC 0.000 Nucleated RBC % (auto) 0.0 Anion Gap 12 Estim Creat Clear Calc 60.5 Estimated GFR > 60 Random Glucose 86 Calcium 8.3 L Ur L.pneumophila Ag Not Detected Microbiology Microbiology Results: Microbiology 10/20/24 02:51 Gram Stain - Final Sputum - Expectorated Sputum Culture - Final Assessment and Plan (1) Cardiomyopathy: Status: Acute Plan 89M PMH CAD, hypertension, hyperlipidemia, COPD with chronic hypoxic respiratory failure on 3 L home O2, myeloproliferative disorder, left subclavian artery stenosis status post stent, history of SVT, admitted to the intensive care unit 10/17/2024 for septic shock due to aspiration pneumonia downgraded to medical floor on 10/19/2024 Septic shock and acute on chronic hypoxic respiratory failure and acute metabolic encephalopathy due to aspiration pneumonia diet pureed with thins, speech appreciated Continue Zosyn, can change to augmentin on dc, 8 days total (end 10/24/24) flutter valve CAD Aspirin, statin, Plavix Hypothyroid Levothyroxine Deconditioning PT DNR/DNI DVT prophylaxis-heparin subQ reason for continued hospitalization:hypoxia Quality Stroke Does the patient have a stroke diagnosis?: No VTE Prior VTE?: No VTE Risk Level:: Medical - moderate - high VTE Device Contraindication: N/A - Device Ordered VTE Drug Contraindication: N/A - Med Ordered
--- NOTE | 2024-10-22 10:55 | MHC.CM.PN ---
PER MD ROUNDS/EMR, PT NOT MEDICALLY CLEARED, STILL REQUIRING TREATMENT FOR HYPOXIA DCP STR AT [place]
--- NOTE | 2024-10-22 17:47 | MHC.SL.SWA ---
Speech Pathologist Impression: Risk of Aspiration, Oropharyngeal Dysphagia Risk of Aspiration Due to: Dysphasia Diet Status: Recommend continue on PUREE (NDD1) with NECTAR THICK liquids, pills crushed in puree. Liquid Consistency and Strategies for Safe Swallow: Liquid Intake Recommendation: Marydel Thick Liquid Intake Strategies: Small Sips No Straws Solid Food Consistency: Dietary Recommendations: Pureed (NDD1) Additional Modifications to Solid Foods: Slow pacing, reduce bolus size Oral Medication Intake: Crushed with Puree Please contact the pharmacy regarding appropriate crushable or liquid drug formulations that are available whenever modified delivery is recommended. Compensatory Strategies and Precautions to be Taken for Safe Swallow: Sitting Upright (90 deg) Liquids from Cup Liquids from Straw Small Bites and Sips Alternate Liquids/Solids Supervision While Eating and Drinking for Safe Swallow: None Needed Swallowing Recommended Treatments: Compens. Strategy Educat. Recommendation for Speech: Inpatient Speech Therapy Frequency/Duration: EAR SPECIALIST tx daily while inpatient Date Range for Service Req: Timeline to reassess: Telescope Maintenance Clinican/Clinical Fellow: No Supervisory Statement: I have reviewed and agree with the student/clinical fellow's documentation: N/A Speech Language Pathologist: Danielle Beverly M.A., [facility]-EAR SPECIALIST
[2024-10-23] VITALS (11 sets, daily range): BP systolic 80–125; BP diastolic 54–73; PULSE 58–79; RESP 17–22; TEMP 36.2–36.7; O2SAT 91–99; BMI 24.6
[2024-10-23] MEDS: Albuterol/Iprat 2.5/0.5MG 3 ML AMPUL.NEB INHALE ×4 (07:51→19:32)
[2024-10-23] MEDS: Aspirin Enteric Coated 81 MG TABLET.DR PO (09:17)
--- NOTE | 2024-10-23 09:44 | HO.PM.IMPN ---
Subjective Subjective Date of Service: 10/23/24 Interval History: no complaints but still gaving difficulty clearing secreations Physical Exam Vital Signs: Vital Signs: Last Vital Signs Temp 97.5 F 10/23/24 07:14 Pulse 79 10/23/24 07:53 Resp 22 H 10/23/24 07:53 BP 125/68 10/23/24 07:14 Pulse Ox 97 10/23/24 07:14 O2 Del Method Oxymask 10/23/24 07:14 O2 Flow Rate 3 10/23/24 07:14 FiO2 28 10/19/24 01:00 Oxygen Flow Rate 2 10/17/24 12:13 BMI result Body Mass Index 24.6 Const: General: cooperative HEENT: Head: Yes normal to inspection Face and sinus: Yes normal facial exam Mouth: Normal oral and palatal mucosa present Teeth and gingiva: dentition normal Eyes: General: appearance normal, both eyes and all related structures Pupils: Equal, round and reactive pupils present Resp: Other: rhonchi bases Cardio: Rate: regular rate Rhythm: regular rhythm GI: Palpation (GI): Soft to palpation and nontender : General: Yes no CVA tenderness Back/Spine/Pelvis: Back: no CVA tenderness Skin: General skin exam: no rashes or lesions noted Neuro: General: moves all extremities Cranial nerves: Yes Equal, round and reactive pupils present Extrem: General: Yes normal to inspection Psych: Appearance: grossly normal Objective Data Active Medications Albuterol/Ipratropium (Albuterol/Iprat 2.5/0.5mg 3 Ml Ampul.Neb) 3 ml INHALE RQ4H WHILE AWAKE [facility] Last Admin: 10/23/24 07:51 Dose: 3 ml Documented By: STEPHANY Amiodarone HCl (Amiodarone Hcl 200 Mg Tablet) 200 mg PO DAILY [facility] Last Admin: 10/23/24 09:18 Dose: 200 mg Documented By: WILDER Aspirin (Aspirin Enteric Coated 81 Mg Tablet.) 81 mg PO DAILY [facility] Last Admin: 10/23/24 09:17 Dose: 81 mg Documented By: WILDER Atorvastatin Calcium (Atorvastatin Calcium 20 Mg Tablet) 20 mg PO BEDTIME [facility] Last Admin: 10/22/24 20:35 Dose: 20 mg Documented By: KEVIN Clopidogrel Bisulfate (Clopidogrel Bisulfate 75 Mg Tablet) 75 mg PO DAILY [facility] Last Admin: 10/23/24 09:17 Dose: 75 mg Documented By: WILDER Heparin Sodium (Porcine) (Heparin Sodium,Porcine 5,000 Unit/Ml Vial) 5,000 unit SUBCUT Q12H [facility] Last Admin: 10/23/24 02:06 Dose: 5,000 unit Documented By: KEVIN Piperacillin Sod/Tazobactam (Sod 3.375 gm/ Sodium Chloride) 50 mls @ 100 mls/hr IV Q6H [facility] Last Admin: 10/23/24 09:18 Dose: 100 mls/hr Documented By: WILDER Levothyroxine Sodium (Levothyroxine Sodium 25 Mcg Tablet) 25 mcg PO DAILY@0600 [facility] Last Admin: 10/23/24 05:39 Dose: 25 mcg Documented By: KEVIN Labs 10/22/24 07:19 10/22/24 07:19 Microbiology Microbiology Results: Microbiology 10/17/24 09:16 Blood Culture - Final Blood - Venous No growth after 5 days. 10/17/24 09:09 Blood Culture - Final Blood - Venous No growth after 5 days. 10/20/24 02:51 Gram Stain - Final Sputum - Expectorated Sputum Culture - Final Assessment and Plan (1) Cardiomyopathy: Status: Acute Plan 89M PMH CAD, hypertension, hyperlipidemia, COPD with chronic hypoxic respiratory failure on 3 L home O2, myeloproliferative disorder, left subclavian artery stenosis status post stent, history of SVT, admitted to the intensive care unit 10/17/2024 for septic shock due to aspiration pneumonia downgraded to medical floor on 10/19/2024 Septic shock and acute on chronic hypoxic respiratory failure and acute metabolic encephalopathy due to aspiration pneumonia diet pureed with thins, speech appreciated Continue Zosyn, can change to augmentin on dc, 8 days total (end 10/24/24) flutter valve, will add mucinex CAD Aspirin, statin, Plavix Hypothyroid Levothyroxine Deconditioning PT DNR/DNI DVT prophylaxis-heparin subQ reason for continued hospitalization:hypoxia, iv abx Quality Stroke Does the patient have a stroke diagnosis?: No VTE Prior VTE?: No VTE Risk Level:: Medical - moderate - high VTE Device Contraindication: N/A - Device Ordered VTE Drug Contraindication: N/A - Med Ordered
[2024-10-23] MEDS: guaiFENesin LA 600 MG TAB.ER.12H 1200 MG PO ×2 (09:50→20:03)
[2024-10-24] VITALS (9 sets, daily range): BP systolic 86–131; BP diastolic 50–70; PULSE 63–71; RESP 16–20; TEMP 36.2–37.1; O2SAT 93–97; BMI 25.1
[2024-10-24] MEDS: Lactated Ringers 500 ML 999 ML IV (00:51)
[2024-10-24] MEDS: Albuterol/Iprat 2.5/0.5MG 3 ML AMPUL.NEB INHALE ×2 (07:50→15:08)
[2024-10-24] MEDS: Aspirin Enteric Coated 81 MG TABLET.DR PO (08:05)
[2024-10-24] MEDS: guaiFENesin LA 600 MG TAB.ER.12H 1200 MG PO (08:05)
[2024-10-24 08:16] LABS: Hematocrit 46.9 % (42.0-52.0); Hemoglobin 13.6 g/dl (14.0-18.0); Mean Corpuscular HGB Conc 29.0 g/dl (31.0-36.0); Mean Corpuscular Hemoglobin 22.9 pg (27.0-33.0); Mean Corpuscular Volume 79.0 fL (80.0-98.0); NRBC Abs Auto 0.020 X10*3/uL (0.0-0.012); NRBC Pct Auto 0.1 /100WBC (0.0-0.2); Platelet Count 187 X10*3/uL (160-400); Red Blood Count 5.94 X10*6/uL (4.60-5.80); White Blood Count 17.4 X10*3/uL (4.8-10.8)
[2024-10-24 08:17] LABS: PLT ABN DIST 1
[2024-10-24 08:19] LABS: Anion Gap 14 (12-20); Blood Urea Nitrogen 14 mg/dL (9-16); Calcium 8.3 mg/dL (8.4-10.2); Carbon Dioxide 25 mmol/L (22-29); Chloride 103 mmol/L (96-108); Creatinine Clr Calc Pharmacy 54.4; Estimated Glomerular Filt Rate > 60; Potassium 4.7 mmol/L (3.3-5.1); Sodium 137 mmol/L (135-145)
--- NOTE | 2024-10-24 09:05 | P.PNIM_ITS ---
Subjective Subjective Date of Service: 10/24/24 Interval History: coughing up yellow sputum Physical Exam 2 Vital Signs: Vital Signs: Last Vital Signs Temp 97.5 F 10/24/24 07:31 Pulse 67 10/24/24 07:51 Resp 20 10/24/24 07:51 BP 121/65 10/24/24 07:31 Pulse Ox 97 10/24/24 07:31 O2 Del Method Oxymask 10/24/24 07:31 O2 Flow Rate 3 10/24/24 07:31 FiO2 28 10/19/24 01:00 Oxygen Flow Rate 2 10/17/24 12:13 BMI result Body Mass Index 25.1 Const: General: cooperative HEENT: Head: Yes normal to inspection Face and sinus: Yes normal facial exam Mouth: Normal oral and palatal mucosa present Teeth and gingiva: d entition normal Eyes: General: appearance normal, both eyes and all related structures P upils: Equal, round and reactive pupils present Resp: Other: rhonchi bases Cardio: Rate: regular rate Rhythm: regular rhythm GI: Palpation (GI): Soft to palpation and nontender : General: Yes no CVA tenderness Back/Spine/Pelvis: Back: no CVA tenderness Skin: General skin exam: no rashes or lesions noted Neuro: General: moves all extremities Cranial nerves: Yes Equal, round and reactive pupils present Extrem: General: Yes normal to inspection Psych: Appearance: grossly normal Objective Data Active Medications Albuterol/Ipratropium (Albuterol/Iprat 2.5/0.5mg 3 Ml Ampul.Neb) 3 ml INHALE RQ4H WHILE AWAKE [facility] Last Admin: 10/24/24 07:50 Dose: 3 ml Documented By: STEPHANY Amiodarone HCl (Amiodarone Hcl 200 Mg Tablet) 200 mg PO DAILY [facility] Last Admin: 10/24/24 08:05 Dose: 200 mg Documented By: WILDER Aspirin (Aspirin Enteric Coated 81 Mg Tablet.) 81 mg PO DAILY [facility] Last Admin: 10/24/24 08:05 Dose: 81 mg Documented By: WILDER Atorvastatin Calcium (Atorvastatin Calcium 20 Mg Tablet) 20 mg PO BEDTIME [facility] Last Admin: 10/23/24 20:03 Dose: 20 mg Documented By: TRUDY Clopidogrel Bisulfate (Clopidogrel Bisulfate 75 Mg Tablet) 75 mg PO DAILY [facility] Last Admin: 10/24/24 08:05 Dose: 75 mg Documented By: WILDER Guaifenesin (Guaifenesin La 600 Mg Tab.Er.12h) 1,200 mg PO BID [facility] Last Admin: 10/24/24 08:05 Dose: 1,200 mg Documented By: WILDER Heparin Sodium (Porcine) (Heparin Sodium,Porcine 5,000 Unit/Ml Vial) 5,000 unit SUBCUT Q12H [facility] Last Admin: 10/24/24 00:54 Dose: 5,000 unit Documented By: TRUDY Piperacillin Sod/Tazobactam (Sod 3.375 gm/ Sodium Chloride) 50 mls @ 100 mls/hr IV Q6H [facility] Last Admin: 10/24/24 08:05 Dose: 100 mls/hr Documented By: WILDER Levothyroxine Sodium (Levothyroxine Sodium 25 Mcg Tablet) 25 mcg PO DAILY@0600 [facility] Last Admin: 10/24/24 05:18 Dose: 25 mcg Documented By: TRUDY Labs 10/24/24 07:40 10/24/24 07:40 Labs: Laboratory Results - last 24 hr 10/24/24 07:40 MCV 79.0 L MCH 22.9 L MCHC 29.0 L RDW 24.4 H Plt Count 187 MPV Not Reportable Absolute Nucleated RBC 0.020 H Nucleated RBC % (auto) 0.1 Anion Gap 14 Estim Creat Clear Calc 54.4 Estimated GFR > 60 Random Glucose 83 Calcium 8.3 L Assessment and Plan (1) Cardiomyopathy: Status: Acute Plan 89M PMH CAD, hypertension, hyperlipidemia, COPD with chronic hypoxic respiratory failure on 3 L home O2, myeloproliferative disorder, left subclavian artery stenosis status post stent, history of SVT, admitted to the intensive care unit 10/17/2024 for septic shock due to aspiration pneumonia downgraded to medical floor on 10/19/2024 Septic shock and acute on chronic hypoxic respiratory failure and acute metabolic encephalopathy due to aspiration pneumonia diet pureed with thins, speech appreciated Continue Zosyn, can change to augmentin on dc, 8 days total (end 10/24/24) flutter valve, added mucinex - starting to cough up some yellow sputum CAD Aspirin, statin, Plavix Hypothyroid Levothyroxine Deconditioning PT DNR/DNI DVT prophylaxis-heparin subQ reason for continued hospitalization:hypoxia, iv abx Quality Stroke Does the patient have a stroke diagnosis?: No VTE Prior VTE?: No VTE Risk Level:: Medical - moderate - high VTE Device Contraindication: N/A - Device Ordered VTE Drug Contraindication: N/A - Med Ordered
[2024-10-25 04:00] VITALS: BP 119/67; PULSE 63; RESP 18; TEMP 36; O2SAT 96
[2024-10-25 07:40] VITALS: BP 102/68; PULSE 62; RESP 18; TEMP 37.1; O2SAT 94
[2024-10-25] MEDS: Aspirin Enteric Coated 81 MG TABLET.DR PO (09:15)
[2024-10-25] MEDS: guaiFENesin LA 600 MG TAB.ER.12H 1200 MG PO (09:23)
--- NOTE | 2024-10-25 09:45 | P.DS_ITS ---
DS: Providers Provider Date of Service: 10/25/24 Date of admission: 10/17/24 12:13 Date of discharge: 10/25/24 Primary care physician: Stephanie Orr MD Consults: 10/19/24 15:06 Consult to Infectious Diseases Routine Consulting Provider: [facility] Reason for consultation: sepsis /pneumonia Has provider been notified: No DS: Diagnosis Discharge Diagnosis (1) Cardiomyopathy: Status: Acute DS: Summary Hospital Course Hospital Course: from initial hpi: 88-year-old gentleman with PMH of COPD on home oxygen, atrial fibrillation, CAD, hypertension, 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 No much history is available as patient's is not picking up the phone, patient is confused and is Welsh speaking only Patient was hypotensive, received sepsis bolus fluids still remained hypotensive so started on Levophed support and MICU consulted for admission hospital course: Patient was admitted to intensive care unit for septic shock and acute on chronic hypoxic respiratory failure and acute metabolic encephalopathy due to recurrent aspiration pneumonia. Was treated with IV Zosyn for a total of 8 days. Was weaned down to chronic 3 L O2, weaned off of pressors and downgraded to medical floor. Was seen by speech therapy who recommended pureed solids with nectar thick liquids. Patient was having difficulty clearing secretions and was given flutter valve and Mucinex and was able to get up yellow sputum. He is feeling much better and will be discharged to intermediate facility for short-term rehab. For coronary artery disease was continued on dual antiplatelet and statin. For hypothyroid was continued on levothyroxine. Beta- blane has been held for low normal blood pressures. Time Attestation Discharge Coordination Time (in mins): 33 Quality: Safe Use of Opioids Does Pt have an Active Cancer Diagnosis on the Problem List?: No Quality: Stroke Does the patient have a stroke diagnosis?: No Physical Exam Vital Signs: Vital Signs: Last Vital Signs Temp 98.8 F 10/25/24 07:40 Pulse 62 10/25/24 07:40 Resp 18 10/25/24 07:40 BP 102/68 10/25/24 07:40 Pulse Ox 94 10/25/24 07:40 O2 Del Method Nasal Cannula 10/25/24 07:40 O2 Flow Rate 3 10/25/24 07:40 FiO2 28 10/19/24 01:00 Oxygen Flow Rate 2 10/17/24 12:13 BMI result Body Mass Index 25.1 Const: General: cooperative HEENT: Head: Yes normal to inspection Face and sinus: Yes normal facial exam Mouth: Normal oral and palatal mucosa present Teeth and gingiva: dentition normal Eyes: General: appearance normal, both eyes and all related structures Pupils: Equal, round and reactive pupils present Resp: Other: rhonchi bases Cardio: Rate: regular rate Rhythm: regular rhythm GI: Palpation (GI): Soft to palpation and nontender : General: Yes no CVA tenderness Back/Spine/Pelvis: Back: no CVA tenderness Skin: General skin exam: no rashes or lesions noted Neuro: General: moves all extremities Cranial nerves: Yes Equal, round and reactive pupils present Extrem: General: Yes normal to inspection Psych: Appearance: grossly normal DS: Data Data Completed and Pending Completed studies during hospitalization [Text1]: Procedures Assistance with Respiratory Ventilation, Less than 24 Consecutive Hours, Continuous Positive Airway Pressure (06/13/24) Insertion of Infusion Device into Superior Vena Cava, Percutaneous Approach (04/28/24) Insertion of Infusion Device into Upper Vein, Percutaneous Approach (04/28/24) Introduction of Vasopressor into Peripheral Vein, Percutaneous Approach (06/13/24) Presybeterian of Cardiac Rhythm, Single (10/05/24) Transfusion of Nonautologous Frozen Plasma into Peripheral Vein, Percutaneous Approach (04/28/24) Transfusion of Nonautologous Red Blood Cells into Peripheral Vein, Percutaneous Approach (04/28/24) Ultrasonography of Superior Vena Cava, Guidance (04/28/24) Discharge Plan Discharge Anticipated Discharge Date/Time: 10/25/24 09:40 Patient Disposition: Xfer SNF Discharge Diagnosis: pna - aspiration Referrals: Stephanie Orr MD [Primary Care Provider, Internal Medicine] - 1 Week Discharge Medications: New guaifenesin [Mucinex] 600 mg Tablet Extended Release 12hr 1,200 mg PO BID Qty: 0 0RF Continued cyanocobalamin (vitamin B-12) 1,000 mcg tablet 1,000 mcg PO DAILY albuterol sulfate 90 mcg/actuation HFA aerosol inhaler 1 puff INHALATION Q6H PRN (Reason: asthma) albuterol sulfate 2.5 mg /3 mL (0.083 %) solution for nebulization 2.5 mg inhalation Q8H PRN (Reason: Shortness Of Breath Or Wheezing) furosemide 40 mg tablet 40 mg PO DAILY clopidogrel 75 mg tablet 75 mg PO DAILY ferrous sulfate 325 mg (65 mg iron) tablet 325 mg PO DAILY atorvastatin 20 mg Tablet 20 mg PO BEDTIME Qty: 30 0RF aspirin 81 mg Tablet,Delayed Release (Dr/Ec) 81 mg PO DAILY Qty: 30 0RF Trelegy Ellipta 200-62.5-25 mcg Blister With Device 1 inh inhalation DAILY Qty: 60 0RF amiodarone 200 mg tablet 200 mg PO DAILY levothyroxine 25 mcg capsule 25 mcg PO DAILY@0600 Discontinued metoprolol succinate 50 mg tablet extended release 24 hr 50 mg PO DAILY Discharge Orders: Discharge Order (Routine); Ordered 10/25/24 Ordered By: Fan Johnston Diet: pureed solids, nectar liq Activity on Discharge: As tolerated Stand Alone Forms: Patient Portal Discharge page Print Language: Upper Sorbian Care Plan Goals: Prevent aspiration Health Concerns: Aspiration pneumonia Plan of Treatment: Diet changed to pureed solids with nectar thick liquids, aspiration precautions, metoprolol discontinued, started on Mucinex Assessment: See above
--- NOTE | 2024-10-25 10:44 | MHC.CM.PN ---
Addendum entered by Vanna Rubi 10/25/24 12:08: Correction, Second IMM given 10/25. Original Note: Second IMM given 09/24. Pt is medically cleared for discharge today to [facility] at [place] [facility] [place]. Pt will transport there via BLS/[facility]. Pt aware and in agreement with discharge plan.
[2024-10-25 11:25] VITALS: BP 128/68; PULSE 64; RESP 19; TEMP 36.7; O2SAT 95
--- NOTE | 2024-10-25 14:20 | MHC.SLORD ---
Speech Language Pathology Order Status: Pt d/c'd today on baseline diet.
== END 2024-10-25 14:00 | disposition skilled nursing facility (03) | DRG 871 ==
LOC: HO.ED 11:28 → HO.EDOVER 12:21 → HO.ICU 12:24 → HO.IMC 10-19 04:00
PROVIDERS: Internal Medicine; Internal Medicine Critical Care Medicine; Physician Assistant Medical; Admitting Provider Internal Medicine Critical Care Medicine; Emergency Provider Emergency Medicine; PCP Internal Medicine; Visit Provider Internal Medicine
DX: A41.9 Sepsis, unspecified organism (principal); G92.8 Other toxic encephalopathy; R65.21 Severe sepsis with septic shock; J96.21 Acute and chronic respiratory failure with hypoxia; J69.0 Pneumonitis due to inhalation of food and vomit; R57.1 Hypovolemic shock; D47.1 Chronic myeloproliferative disease; I25.10 Atherosclerotic heart disease of native coronary artery without angina pectoris; I48.91 Unspecified atrial fibrillation; E03.9 Hypothyroidism, unspecified; Z66 Do not resuscitate; E78.5 Hyperlipidemia, unspecified; I10 Essential (primary) hypertension; N28.9 Disorder of kidney and ureter, unspecified; Z87.891 Personal history of nicotine dependence; Z99.81 Dependence on supplemental oxygen; Z79.02 Long term (current) use of antithrombotics/antiplatelets; Z79.82 Long term (current) use of aspirin; Z79.890 Hormone replacement therapy; Z79.899 Other long term (current) drug therapy
CPT/HCPCS: 36415; 70450; 71045; 71250; 74176; 80048; 80053; 81001; 82803; 82947; 83605; 83735; 84100; 84484; 85025; 85027; 85610; 86140; 86738; 87040; 87070; 87205; 87449; 87502; 87633; 87640; 87641; 87899; 92526; 92610; 93005; 94660; 97161; 99285; J0131; J1644; J2371; J2470; J2543; J3374; J3475; J7120; P9047

== ENCOUNTER 2024-10-17 12:13 | Outpatient (BNV) | payer MEDICARE, SELFPAY | END 2024-10-17 19:05 | PROVIDERS: Admitting Provider Internal Medicine Critical Care Medicine; Emergency Provider Emergency Medicine; PCP Internal Medicine; Visit Provider Radiology Neuroradiology | DX: R10.9 Unspecified abdominal pain (principal); J18.9 Pneumonia, unspecified organism; R41.82 Altered mental status, unspecified | CPT/HCPCS: 70450; 71250; 74176 ==

== ENCOUNTER 2024-10-17 12:13 | Outpatient (BNV) | payer MEDICARE, SELFPAY | END 2024-10-17 19:05 | PROVIDERS: Admitting Provider Internal Medicine Critical Care Medicine; Emergency Provider Emergency Medicine; PCP Internal Medicine; Visit Provider Internal Medicine | DX: I44.0 Atrioventricular block, first degree (principal); I45.2 Bifascicular block | CPT/HCPCS: 93010 ==

== ENCOUNTER → 2024-10-17 12:13 | Outpatient (BNV) | payer MEDICARE, SELFPAY | PROVIDERS: Admitting Provider Internal Medicine Critical Care Medicine; Emergency Provider Emergency Medicine; PCP Internal Medicine; Visit Provider Internal Medicine | DX: A41.9 Sepsis, unspecified organism (principal) | CPT/HCPCS: 99232 ==

== ENCOUNTER → 2024-10-17 12:13 | Outpatient (BNV) | payer MEDICARE, SELFPAY | PROVIDERS: Admitting Provider Internal Medicine Critical Care Medicine; Emergency Provider Emergency Medicine; PCP Internal Medicine; Visit Provider Internal Medicine | DX: J18.9 Pneumonia, unspecified organism (principal) | CPT/HCPCS: 99222 ==

== ENCOUNTER → 2024-10-17 12:13 | Outpatient (BNV) | payer MEDICARE, SELFPAY | PROVIDERS: Admitting Provider Internal Medicine Critical Care Medicine; Emergency Provider Emergency Medicine; PCP Internal Medicine; Visit Provider Internal Medicine Critical Care Medicine | DX: J44.9 Chronic obstructive pulmonary disease, unspecified (principal); J96.20 Acute and chronic respiratory failure, unspecified whether with hypoxia or hypercapnia; J18.9 Pneumonia, unspecified organism; A41.9 Sepsis, unspecified organism; R65.21 Severe sepsis with septic shock | CPT/HCPCS: 99291 ==